=== PATIENT | female | born 1985 | race Caucasian/White ===

== ENCOUNTER → 2017-07-07 15:00 | Outpatient (CLI) | payer OTHER, SELFPAY ==
[2017-07-07 16:19] LABS: Hemoglobin A1c 5.8 % (4.2-6.3)
[2017-07-07 17:30] LABS: Follicle Stimulating Hormone 7.2 mIU/mL; Luteinizing Hormone 17.4 mIU/mL
[2017-07-10 13:42] LABS: HPV Reflexed? NOT INDICATED
== END ==
PROVIDERS: Visit Provider Obstetrics & Gynecology
DX: Z12.4 Encounter for screening for malignant neoplasm of cervix (principal); N92.5 Other specified irregular menstruation; R63.5 Abnormal weight gain
CPT/HCPCS: 36415; 83001; 83002; 83036; 84443; 88175; G0145

== ENCOUNTER → 2017-08-06 08:20 | Outpatient (CLI) | payer OTHER, SELFPAY ==
[2017-08-06 09:52] LABS: Absolute Lymphocyte Count 2.28 X10^3/ul (0.83-4.51); Absolute Neutrophil Count 3.5 X10^3/uL (2.0-7.7); Basophil# 0.03 X10^3/uL; Basophil% 0.5 % (0-1); Eosinophil# 0.07 X10^3/uL; Eosinophils% 1.1 % (0-5); Hematocrit 42.9 % (37-47); Hemoglobin 14.1 g/dl (12.0-15.0); Lymphocyte # 2.28 X10^3/ul (4.0); Lymphocyte % 35.6 % (19-41); Mean Corp Hgb Conc 32.9 g/gl (32-36); Mean Corpuscular Hgb 30.7 pg (27.0-32.0); Mean Corpuscular Volume 93.3 fL (81-99); Mean Platelet Vol. 11.5 fl (6.2-12.0); Monocyte# 0.48 X10^3/uL; Monocyte% 7.5 % (0-10); Neutrophil # 3.54 X10^3/uL (2.7-7.7); Neutrophil % 55.3 % (47-70); Platelet Count 257 K/mm3 (150-450); RBC Distribution Width CV 12.6 % (11.6-14.6); RBC Distribution Width SD 42.7 fl (35.1-43.9); White Blood Count 6.4 K/mm3 (4.4-11.0)
[2017-08-06 09:53] LABS: POSITIVE COUNT NO; POSITIVE DIFFERENTIAL NO; POSITIVE MORPHOLOGY NO
[2017-08-06 10:09] LABS: Anion Gap 8 (5-15); BUN 11 mg/dL (7-18); BUN/Creat Ratio 14.3 RATIO (10-20); Calcium,Total 8.7 mg/dL (8.5-10.1); Chloride 105 mmol/L (98-107); Cholesterol 171 mg/dL (200); Creatinine, Serum 0.77 mg/dL (0.55-1.02); EST Glomerular Filtration Rate 93 mL/min (>60); Est Glom Filt Rate - Afr Amer 112 mL/min (>60); Glucose 99 mg/dL (74-106); High Density Lipoprotein 47 mg/dL; Potassium 4.4 mmol/L (3.5-5.1); Sodium Level 138 mmol/L (136-145); Triglycerides 97 mg/dL; Uric Acid 5.4 mg/dL (2.6-6.0); Very Low Density Lipoprotein 19 mg/dL (5-40)
[2017-08-06 10:23] LABS: Hemoglobin A1c 6.1 % (4.2-6.3)
[2017-08-06 10:35] LABS: Insulin 14.1 mU/L (2.6-37.6); Vitamin D,25 Hydroxy 11.6 ng/mL (29.95-100.01)
== END ==
PROVIDERS: Family Provider Family Medicine; PCP Family Medicine; Visit Provider Nurse Practitioner Adult Health
DX: D64.9 Anemia, unspecified (principal); R63.8 Other symptoms and signs concerning food and fluid intake; E55.9 Vitamin D deficiency, unspecified; Z13.1 Encounter for screening for diabetes mellitus; Z13.220 Encounter for screening for lipoid disorders
CPT/HCPCS: 36415; 80048; 80061; 82306; 83036; 83525; 84550; 85025

== ENCOUNTER → 2017-12-30 16:43 | Outpatient (CLI) | payer OTHER, SELFPAY ==
[2017-12-30 20:34] LABS: Chlamydia Trachomatis by PCR Negative (Negative); Neisserai gonorrhoeae by PCR Negative (Negative); Probe Check PASS; Sample Adequacy Control PASS; Specimen Processing Control PASS
== END ==
PROVIDERS: Visit Provider Obstetrics & Gynecology
DX: Z11.3 Encounter for screening for infections with a predominantly sexual mode of transmission (principal)
CPT/HCPCS: 87491; 87591

== ENCOUNTER → 2018-01-14 10:10 | Outpatient (CLI) | payer OTHER, SELFPAY ==
[2018-01-14 10:37] LABS: Absolute Lymphocyte Count 2.16 X10^3/ul (0.83-4.51); Absolute Neutrophil Count 4.7 X10^3/uL (2.0-7.7); Basophil# 0.02 X10^3/uL; Basophil% 0.3 % (0-1); Eosinophil# 0.06 X10^3/uL; Eosinophils% 0.8 % (0-5); Hematocrit 39.1 % (37-47); Hemoglobin 13.4 g/dl (12.0-15.0); Lymphocyte # 2.16 X10^3/ul (4.0); Lymphocyte % 29.1 % (19-41); Mean Corp Hgb Conc 34.3 g/gl (32-36); Mean Corpuscular Hgb 31.6 pg (27.0-32.0); Mean Corpuscular Volume 92.2 fL (81-99); Mean Platelet Vol. 11.1 fl (6.2-12.0); Monocyte# 0.51 X10^3/uL; Monocyte% 6.9 % (0-10); Neutrophil # 4.66 X10^3/uL (2.7-7.7); Neutrophil % 62.8 % (47-70); Platelet Count 292 K/mm3 (150-450); RBC Distribution Width CV 12.5 % (11.6-14.6); RBC Distribution Width SD 41.8 fl (35.1-43.9); Red Blood Count 4.24 M/mm3 (4.2-5.4); White Blood Count 7.4 K/mm3 (4.4-11.0)
[2018-01-14 10:38] LABS: Color, Urine Yellow (Yellow); Glucose, Dipstick Normal (Normal); Ketone-Dipstick Negative (Negative); Leukocyte Esterase-Dipstick Negative /ul (Negative); Nitrite-Dipstick Negative (Negative); Occult Blood-Urine Negative /ul (Negative); POSITIVE COUNT NO; POSITIVE DIFFERENTIAL NO; POSITIVE MORPHOLOGY NO; Protein-Dipstick Negative (Negative); Urine Bilirubin Dipstick Negative (Negative); Urine Clarity Sl. Cloudy (Clear); Urine Urobilinogen Normal (Normal)
[2018-01-14 11:51] LABS: HIV - WCH Non-Reactive (Nonreactive)
[2018-01-15 13:46] LABS: HEPATITIS B SURFACE AG Negative (Negative); Hep C Antibodies 0.1 s/co ratio (0.0-0.9)
[2018-01-16 02:59] LABS: Prenatal RPR NONREACTIVE (NONREACTIVE)
== END ==
PROVIDERS: Visit Provider Obstetrics & Gynecology
DX: Z34.81 Encounter for supervision of other normal pregnancy, first trimester (principal)
CPT/HCPCS: 36415; 81002; 84443; 85025; 86703; 86762; 86803; 87340

== ENCOUNTER 2018-01-15 11:48 | Emergency (ER) | payer OTHER, SELFPAY ==
[2018-01-15 11:49] VITALS: BP 135/80; PULSE 85; RESP 18; TEMP 36.6; O2SAT 98; BMI 33.2
--- NOTE | 2018-01-15 12:10 | ED.VISSUMM ---
- ER Visit Summary Date of Service: 01/15/18 Chief Complaint: [] Sharp intermittent right lower quadrant pain 4 AM today G1P 0 8 weeks History of Present Illness: The patient is a 32 F [] patient with that history as above, was seen yesterday by her [employer]STAL [employer]PER team for complete evaluation of her lab work urinalysis and ultrasound were done that were unremarkable she had an 8-week single live IUP, she indicates today at 4 AM she basically was awoken with a sharp stabbing pain to the right lower quadrant, the pain waxes and wanes there are periods where she is completely pain-free than the pain spontaneously recurs and lasts for only a few minutes then resolves. She has been able to eat fact she is hungry now, her bowel urinary habits are normal, no vaginal bleeding, no fever or cough, She denies any past history and is on no meds except those related to her , she spoke with her CRYSTAL LAPPER's office was asked to come to the ed department, she is currently pain-free Does recall that she was told that she had a cyst on her ovary during ultrasound done yesterday was not sure which side Physical Examination: [] Points directly to the right lower quadrant area when the pain strikes her, again she is pain-free now her vital signs are within normal range afebrile, HEENT exam, neck chest heart and lungs are unremarkable, her abdomen is soft nontender no rebound guarding or megaly the back is unremarkable the skin her flanks are normal her upper lower extremities are normal neurologic she is awake moving all 4 she denies any vaginal bleeding or discharge Test Results: [] Emergency Department Course and Treatment: [] The differential would certainly include appendicitis kidney stone UTI related complications etc. she is currently afebrile with no symptoms at this time screening labs will be obtained and will discuss the case with her cable armorer Dr. Luz Spoke with Dr. luz obtained all the above screening labs that were generally unremarkable see those reports, eluding white count and UA did review studies done yesterday in the office and agrees no additional studies such as ultrasounds or others are necessary now, we did caution the patient about the possibility of appendicitis kidney stone or other occult conditions but given the lack of white count given the unremarkable UA the fact that she is hungry and her physical exam findings, and also the fact the pain is very intermittent she agrees and understands with discharge to follow-up with the office in the next few days and return for change in symptoms. as prudent precaution she was given instructions appendicitis kidney stone etc. follow-up and return for change in symptoms Treatment Plan: [] Disposition: [] Home stable Impression: [] Treatment and right lower quadrant pain, 8 weeks single live IUP This note was generated with [employer]upp[employer] dictation software. It may contain incorrect words, spelling, and punctuation that were not noted in review of the chart prior to signing ED Disposition - Plan for ED Patient: Chief Complaint: Abd Pain Referrals: Pauline Luz MD [STAFF PHYSICIAN] -
--- NOTE | 2018-01-15 12:13 | ED.DCSUM_ITS ---
- ER Visit Summary Date of Service: 01/15/18 Chief Complaint: [] Sharp intermittent right lower quadrant pain 4 AM today G1P 0 8 weeks History of Present Illness: The patient is a 32 F [] patient with that history as above, was seen yesterday by her AGENCY SALES MANAGEMENT ASSISTANT team for complete evaluation of her lab work urinalysis and ultrasound were done that were unremarkable she had an 8-week single live IUP, she indicates today at 4 AM she basically was awoken with a sharp stabbing pain to the right lower quadrant, the pain waxes and wanes there are periods where she is completely pain-free than the pain spontaneously recurs and lasts for only a few minutes then resolves. She has been able to eat fact she is hungry now, her bowel urinary habits are normal, no vaginal bleeding, no fever or cough, She denies any past history and is on no meds except those related to her , she spoke with her AGENCY SALES MANAGEMENT ASSISTANT's office was asked to come to the ed department, she is currently pain-free Does recall that she was told that she had a cyst on her ovary during ultrasound done yesterday was not sure which side Physical Examination: [] Points directly to the right lower quadrant area when the pain strikes her, again she is pain-free now her vital signs are within normal range afebrile, HEENT exam, neck chest heart and lungs are unremarkable, her abdomen is soft nontender no rebound guarding or megaly the back is unremarkable the skin her flanks are normal her upper lower extremities are normal neurologic she is awake moving all 4 she denies any vaginal bleeding or discharge Test Results: [] Emergency Department Course and Treatment: [] The differential would certainly include appendicitis kidney stone UTI related complications etc. she is currently afebrile with no symptoms at this time screening labs will be obtained and will discuss the case with her manager management Dr. Luz Spoke with Dr. luz obtained all the above screening labs that were generally unremarkable see those reports, eluding white count and UA did review studies done yesterday in the office and agrees no additional studies such as ultrasounds or others are necessary now, we did caution the patient about the possibility of appendicitis kidney stone or other occult conditions but given the lack of white count given the unremarkable UA the fact that she is hungry and her physical exam findings, and also the fact the pain is very intermittent she agrees and understands with discharge to follow-up with the office in the next few days and return for change in symptoms. as prudent precaution she was given instructions appendicitis kidney stone etc. follow-up and return for change in symptoms Treatment Plan: [] Disposition: [] Home stable Impression: [] Treatment and right lower quadrant pain, 8 weeks single live IUP This note was generated with [employer] dictation software. It may contain incorrect words, spelling, and punctuation that were not noted in review of the chart prior to signing ED Disposition - Plan for ED Patient: Chief Complaint: Abd Pain Referrals: Pauline Luz MD [STAFF PHYSICIAN] -
[2018-01-15] MEDS: 0.9% Normal Saline 1,000 ML 1000 ML IV (12:27)
[2018-01-15 12:36] LABS: Mucous, Urine 0 SEEN /hpf (<or=2+); Red Blood Cells-Urine 0 SEEN /hpf (0-5); White Blood Cells 0 SEEN /hpf (0-5)
[2018-01-15 12:45] LABS: Absolute Lymphocyte Count 2.42 X10^3/ul (0.83-4.51); Absolute Neutrophil Count 5.5 X10^3/uL (2.0-7.7); Basophil# 0.02 X10^3/uL; Basophil% 0.2 % (0-1); Eosinophil# 0.04 X10^3/uL; Eosinophils% 0.5 % (0-5); Hematocrit 39.3 % (37-47); Hemoglobin 13.6 g/dl (12.0-15.0); Lymphocyte # 2.42 X10^3/ul (4.0); Lymphocyte % 28.1 % (19-41); Mean Corp Hgb Conc 34.6 g/gl (32-36); Mean Corpuscular Hgb 31.8 pg (27.0-32.0); Mean Corpuscular Volume 91.8 fL (81-99); Mean Platelet Vol. 11.3 fl (6.2-12.0); Monocyte# 0.58 X10^3/uL; Monocyte% 6.7 % (0-10); Neutrophil # 5.54 X10^3/uL (2.7-7.7); Neutrophil % 64.4 % (47-70); Platelet Count 296 K/mm3 (150-450); RBC Distribution Width CV 12.4 % (11.6-14.6); RBC Distribution Width SD 41.3 fl (35.1-43.9); Red Blood Count 4.28 M/mm3 (4.2-5.4); White Blood Count 8.6 K/mm3 (4.4-11.0)
[2018-01-15 12:47] LABS: Color, Urine Yellow (Yellow); Glucose, Dipstick Normal (Normal); Ketone-Dipstick Negative (Negative); Leukocyte Esterase-Dipstick Negative /ul (Negative); Nitrite-Dipstick Negative (Negative); Occult Blood-Urine Negative /ul (Negative); Protein-Dipstick Negative (Negative); Specific Gravity, Urine 1.015 (1.002-1.030); Urine Bilirubin Dipstick Negative (Negative); Urine Clarity Clear (Clear); Urine Urobilinogen Normal (Normal)
[2018-01-15 12:51] LABS: POSITIVE COUNT NO; POSITIVE DIFFERENTIAL NO; POSITIVE MORPHOLOGY NO
[2018-01-15 12:59] LABS: AST(SGOT) 13 U/L (15-37); Alanine Aminotransfer ALT/SGPT 19 U/L (13-56); Albumin, Serum 3.8 g/dL (3.2-5.0); Alkaline Phosphatase 56 U/L (45-117); Anion Gap 5 (5-15); BUN 6 mg/dL (7-18); BUN/Creat Ratio 9.3 RATIO (10-20); Bilirubin, Direct 0.14 mg/dL (0.00-0.30); Chloride 105 mmol/L (98-107); Creatinine, Serum 0.64 mg/dL (0.55-1.02); EST Glomerular Filtration Rate 113 mL/min (>60); Est Glom Filt Rate - Afr Amer 137 mL/min (>60); Estimated Creatinine Clearance 131.88 ml/min; Globulin 3.6 g/dL (2.2-4.2); Glucose 89 mg/dL (74-106); Lipase 167 U/L (73-393); Potassium 4.3 mmol/L (3.5-5.1); Protein, Total 7.4 g/dL (6.4-8.2); Sodium Level 133 mmol/L (136-145)
[2018-01-15 13:05] LABS: Bacteria 1+ /hpf (None Seen); Squamous Epithelial Cells - UA 0-5 SEEN /hpf (5-10)
[2018-01-15 14:19] VITALS: RESP 16
--- NOTE | 2018-01-15 14:58 | ED.DEP ---
ED Disposition - Plan for ED Patient: Chief Complaint: Abd Pain Instructions: ED Abdominal Pain Appendx Poss, ED Abdominal Pain Unkn Cause Referrals: Pauline Krishnan MD [STAFF PHYSICIAN] -
--- NOTE | 2018-01-15 15:10 | ED.RN ---
REVIEWED D/C INSTRUCTIONS, FOLLOW UP CARE, AND S/S THAT WOULD WARRANT A RETURN TO THE ED WITH PT. PT VERBALIZED AN UNDERSTANDING AND DENIES FURTHER QUESTIONS FOR THIS RN. PT SKIN P/W/D, RESP EVEN AND UNLABORED, PT A&O X 3, NO DISTRESS NOTED. PT AMBULATED OUT OF ED, GAIT STEADY.
[2018-01-15 15:11] VITALS: BP 114/66; PULSE 70; RESP 18; O2SAT 100
== END 2018-01-15 15:12 | disposition home or self-care (01) ==
LOC: ED 13:25
PROVIDERS: Emergency Provider Emergency Medicine; Family Provider Family Medicine; PCP Family Medicine
DX: O26.891 Other specified pregnancy related conditions, first trimester (principal); R10.31 Right lower quadrant pain; Z3A.08 8 weeks gestation of pregnancy
CPT/HCPCS: 80048; 80076; 81001; 83690; 85025; 87086; 87088; 96360; 96361; 99283; J7030

== ENCOUNTER → 2018-06-03 08:39 | Outpatient (CLI) | payer OTHER, SELFPAY ==
[2018-06-03 10:39] LABS: Glucose Challenge Gest 1H 50g 123 mg/dL (70-140)
[2018-06-03 10:49] LABS: Hematocrit 34.1 % (37-47); Hemoglobin 11.2 g/dl (12.0-15.0); Mean Corp Hgb Conc 32.8 g/gl (32-36); Mean Corpuscular Hgb 31.5 pg (27.0-32.0); Mean Corpuscular Volume 95.8 fL (81-99); Mean Platelet Vol. 11.4 fl (6.2-12.0); Platelet Count 272 K/mm3 (150-450); RBC Distribution Width CV 13.1 % (11.6-14.6); RBC Distribution Width SD 45.6 fl (35.1-43.9); Red Blood Count 3.56 M/mm3 (4.2-5.4); White Blood Count 10.2 K/mm3 (4.4-11.0)
[2018-06-03 10:50] LABS: Scan Indicated on CBC? Y/N NO
== END ==
PROVIDERS: Visit Provider Obstetrics & Gynecology
DX: Z34.82 Encounter for supervision of other normal pregnancy, second trimester (principal)
CPT/HCPCS: 36415; 82950; 85027

== ENCOUNTER 2018-07-16 23:50 | Outpatient (CLI) | payer OTHER, SELFPAY ==
[2018-07-17 00:41] VITALS: BMI 34.7
[2018-07-17 02:09] LABS: Group B Strep DNA By PCR Negative (Negative); Internal Control PASS; Probe Check PASS; Specimen Processing Control PASS
--- NOTE | 2018-07-17 07:57 | OB.TRI.NOTE ---
History of Present Illness Date of Service: 07/16/18 Was patient seen by the physician?: No Reason For Visit: R/O LABOR Date of Service: 07/16/18 Final ISIDRA: 08/23/18 Final ISIDRA Source: US <20 weeks Gestational age: 34 Weeks and 5 Days History of Present Illness: Irregular contractions. Denies signs of SROM Allergies ADVACADO Allergy (Uncoded 01/15/18 11:51) Swelling Laboratory Studies: Laboratory Tests 07/16/18 Range/Units 21:00 Group B Strep DNA Negative (Negative) Specimen Comment Not Reportable Physical Exam General: Alert, Oriented x3, Cooperative, No apparent distress Lungs: Clear to auscultation, Normal air movement Abdomen: Soft, Non Tender, Non-Distended, Gravid, Appropriate for Gestational Age Extremities:: No edema SENIOR NET DEVELOPER ARCHITECT: Normal external genitalia Estimated gestational size: Appropriate for gestational size Presentation: Cephalic Cervix Dilation (cm): 2 Station: -3 Effacement (%): 25 NST - FHR Rate Baby A Baseline: 130s Variability:: Moderate Accelerations:: 15 x 15 Decelerations:: None NST Reactive:: Yes, Appropriate for gestational age FHR Category:: Category I Uterine Activity:: irregular Impression/Plan No change in cervical exam over observation period. Reassuring FHR tracing. No signs of SROM. Return with increasing signs of labor.
--- NOTE | 2018-07-17 08:00 | OB.TRI.HP_ITS ---
History of Present Illness Date of Service: 07/16/18 Was patient seen by the physician?: No Reason For Visit: R/O LABOR Date of Service: 07/16/18 Final ISIDRA: 08/23/18 Final ISIDRA Source: US <20 weeks Gestational age: 34 Weeks and 5 Days History of Present Illness: Irregular contractions. Denies signs of SROM Allergies ADVACADO Allergy (Uncoded 01/15/18 11:51) Swelling Laboratory Studies: Laboratory Tests 07/16/18 Range/Units 21:00 Group B Strep DNA Negative (Negative) Specimen Comment Not Reportable Physical Exam General: Alert, Oriented x3, Cooperative, No apparent distress Lungs: Clear to auscultation, Normal air movement Abdomen: Soft, Non Tender, Non-Distended, Gravid, Appropriate for Gestational Age Extremities:: No edema ASSISTANT SIGNAL MAINTAINER: Normal external genitalia Estimated gestational size: Appropriate for gestational size Presentation: Cephalic Cervix Dilation (cm): 2 Station: -3 Effacement (%): 25 NST - FHR Rate Baby A Baseline: 130s Variability:: Moderate Accelerations:: 15 x 15 Decelerations:: None NST Reactive:: Yes, Appropriate for gestational age FHR Category:: Category I Uterine Activity:: irregular Impression/Plan No change in cervical exam over observation period. Reassuring FHR tracing. No signs of SROM. Return with increasing signs of labor.
== END 2018-07-17 02:05 | disposition home or self-care (01) ==
LOC: WPOUT 07-17 00:22 → WP 07-17 00:22
PROVIDERS: Family Provider Family Medicine; PCP Family Medicine; Visit Provider Obstetrics & Gynecology
DX: Z34.93 Encounter for supervision of normal pregnancy, unspecified, third trimester (principal); Z3A.34 34 weeks gestation of pregnancy
CPT/HCPCS: 59025; 59050; 87081; 87653; 99218; G0378

== ENCOUNTER 2018-08-22 | Outpatient (CLI) | payer OTHER, SELFPAY ==
[2018-08-22 00:25] VITALS: BMI 36.3
[2018-08-22 00:53] LABS: ROM Internal Control Test YES-OK TO RESULT pt. (Internal QC); ROM Patient Test Negative (Negative)
--- NOTE | 2018-08-22 09:50 | OB.TRI.PN_ITS ---
Progress Notes Date of Service: 08/22/18 Progress Note: 33-year-old patient presents at 31 weeks with bilateral low back pain and intermittent contractions. Patient is 1 cm dilated thick and high denies any vaginal bleeding or loss of fluid admits good movement heart tones 140s moderate variability reactive no decelerations reactive NST category 1 tracing [place]: Irregular contractions Cervical exam 1 thick and high Assessment and plan 33-year-old with threatened labor, false labor no cervical change reassuring status DC home labor precautions reactive NST Laboratory Studies: Laboratory Tests 08/22/18 Range/Units 00:15 Vag Amniotic Fld Detect Negative (Negative)
== END 2018-08-22 00:59 | disposition home or self-care (01) ==
LOC: WPOUT 00:23 → WP 00:24
PROVIDERS: Family Provider Family Medicine; PCP Family Medicine; Referring Provider Obstetrics & Gynecology; Visit Provider Obstetrics & Gynecology
DX: O60.03 Preterm labor without delivery, third trimester (principal); O47.03 False labor before 37 completed weeks of gestation, third trimester; Z3A.31 31 weeks gestation of pregnancy
CPT/HCPCS: 59050; 84112; 99218; G0378

== ENCOUNTER 2018-08-26 04:55 | Inpatient (IN) | payer OTHER, SELFPAY ==
[2018-08-26 05:31] VITALS: BMI 36.4
[2018-08-26 06:16] LABS: Absolute Lymphocyte Count 1.84 X10^3/ul (0.83-4.51); Basophil# 0.02 X10^3/uL; Basophil% 0.2 % (0-1); Eosinophil# 0.07 X10^3/uL; Eosinophils% 0.7 % (0-5); Hematocrit 35.8 % (37-47); Hemoglobin 11.8 g/dl (12.0-15.0); Lymphocyte # 1.84 X10^3/ul (4.0); Lymphocyte % 19.2 % (19-41); Mean Corpuscular Volume 91.1 fL (81-99); Mean Platelet Vol. 11.9 fl (6.2-12.0); Monocyte# 0.63 X10^3/uL; Monocyte% 6.6 % (0-10); Neutrophil # 7.01 X10^3/uL (2.7-7.7); Platelet Count 213 K/mm3 (150-450); RBC Distribution Width CV 14.6 % (11.6-14.6); RBC Distribution Width SD 48.2 fl (35.1-43.9); Red Blood Count 3.93 M/mm3 (4.2-5.4); White Blood Count 9.6 K/mm3 (4.4-11.0)
[2018-08-26 06:18] LABS: POSITIVE COUNT NO; POSITIVE DIFFERENTIAL NO; POSITIVE MORPHOLOGY NO
[2018-08-26] MEDS: Lactated Ringers 1,000 ML 50 ML IV ×3 (07:00→15:57)
--- NOTE | 2018-08-26 07:48 | PCM.HPOB.BLA ---
History and Physical Date of Admission: 08/26/18 [facility] History of this : 33 yo female Ab0 with EDC 08/23/2018 by 8 weeks 3 days Ultrasound, presents to Labor and Delivery with CC of painful UCs. care remarkable for - CF testing declined h/o HSV II, H/O PCOS weighed 11 lbs at , LGA anticipated by sono done. Depression hx, no meds x 5 yrs. Currently in counselling Pertinent Past Medical History: HSV hx and on suppressive therapy for prevention of outbreak Allergies: No Known Drug Allergies Medications: During - Valtrex 1 gram tablet; promethazine 25 mg tablet; + DHA 28 mg iron-800 mcg-200 mg oral pack; Colace 100 mg capsule; azithromycin 250 mg tablet; Valtrex 1 gram tablet Review of Systems: painful UCs starting at 3:30 this am. Plans no epidural. Neg ROM. Non-contributory PHYSICAL EXAMINATION General Appearence: 33 yo female uncomfortable with UCs, resting between UCs. Vital Signs: AF, VSS Heart: RRR without rubs or gallops Lungs: CTA x 2 Breasts: deferred Abdomen: gravid Pelvis: Cervix: 4/90/-2 at presentation Last check just prior to 0700 shift change: 5 cm. IBOW. Presentation: cephalic Fetus Size: LGA Movement: present Heart: 120-130s avg variability. Accels noted UCs q 2-3 + minutes poor pickup at times due to positioning Impression /Plan: Intrauterine . 40 3/7 wk EGA. early labor. Category I tracing. Admitted for labor and delivery. Plans no epidural at this time. Continue labor. See Progress Notes for Changes Physician's Signature: Date: 08/26/18 at 0752
--- NOTE | 2018-08-26 07:53 | HP.PCM_ITS ---
History and Physical Date of Admission: 08/26/18 [facility] History of this : 33 yo female Ab0 with EDC 08/23/2018 by 8 weeks 3 days Ultrasound, presents to Labor and Delivery with CC of painful UCs. care remarkable for - CF testing declined h/o HSV II, H/O PCOS weighed 11 lbs at , LGA anticipated by sono done. Depression hx, no meds x 5 yrs. Currently in counselling Pertinent Past Medical History: HSV hx and on suppressive therapy for prevention of outbreak Allergies: No Known Drug Allergies Medications: During - Valtrex 1 gram tablet; promethazine 25 mg tablet; + DHA 28 mg iron-800 mcg-200 mg oral pack; Colace 100 mg capsule; azithromycin 250 mg tablet; Valtrex 1 gram tablet Review of Systems: painful UCs starting at 3:30 this am. Plans no epidural. Neg ROM. Non-contributory PHYSICAL EXAMINATION General Appearence: 33 yo female uncomfortable with UCs, resting between UCs. Vital Signs: AF, VSS Heart: RRR without rubs or gallops Lungs: CTA x 2 Breasts: deferred Abdomen: gravid Pelvis: Cervix: 4/90/-2 at presentation Last check just prior to 0700 shift change: 5 cm. IBOW. Presentation: cephalic Fetus Size: LGA Movement: present Heart: 120-130s avg variability. Accels noted UCs q 2-3 + minutes poor pickup at times due to positioning Impression /Plan: Intrauterine . 40 3/7 wk EGA. early labor. Category I tracing. Admitted for labor and delivery. Plans no epidural at this time. Continue labor. See Progress Notes for Changes Physician's Signature: Date: 08/26/18 at 0752
--- NOTE | 2018-08-26 13:11 | PCM.PN.BLA ---
Progress Note LABOR PROGRESS NOTE Using nitrous oxide for contraction pain. States she is hungry and tired. Declines epidural AVSS EFM 130-140s avg variability. Accels noted. Occasional late decel, occasional variable. Occasional early UCs noted up to 6 min apart CX: /-1 at last RN check A/P: 40 3/7 wk EGA Spont labor. Plans no epidural. LGA . continue labor. Offered AROM, considering but wants to think about it through a few more UCs. Advised that AROM normally will shorten duration of labor, but UCs more uncomfortable and may be closer together. Continue labor.
--- NOTE | 2018-08-26 17:50 | PCM.PN.BLA ---
Progress Note 40 3/7 wk labor. C and P Category I tracing Anticipate
[2018-08-26] MEDS: Oxytocin 10 UNITS/ML Vial IM (18:21)
--- NOTE | 2018-08-26 18:39 | OP.PCM_ITS ---
Vaginal Delivery Maternal Presentation: Active Labor 40 3/7 wk active labor Method of Induction: Amniotomy Amniotic Membrane Rupture Type: Artificial Amniotic Fluid Description: Lightly stained meconium Final ISIDRA: 08/23/18 Final ISIDRA Source: US <20 weeks Gestational age: 40 Weeks and 3 Days Date of Procedure: 08/26/18 Pre-Operative Diagnosis: 40 3/7 wk labor Post-Operative Diagnosis: same Surgery/ Procedure Performed: Spontaneous Vaginal Delivery Type of Anesthesia: None Description of Procedure: of a haji viable female over intact perineum to 3rd deg laceratoin. Head delivered SHAYAN OP and nares bulb suctioned on perineum. No nuchal cord noted. Shoulders delivered easily. Spontaneously delivered as baby rotated naturally. to maternal abdomen, with spont cry. Cord clamped immediately x two and cut 2/2 tear in umbilical cord near umbilicus with movement to higher on maternal abdomen. Ap 9/9 PP exam; Bilateral vaginal wall lacerations repaired under 20 cc of 1% lidocaine without epinephrine local to hemostatic and intact with 3-0 Vicryl. 3rd deg perineal laceration noted. Anal sphincter capsule repaired with interrupted suture of 2-0 Chromic and then repair finished with 3-0 Vicryl to he mostatic and intact. Placenta delivered by spont expulsion 3V cord, normal appearing and intact with trailing membranes. EBL 450 cc Patient and infant tolerated delivery well. To recovery, stable conditoin. Presentation: Vertex, SHAYAN Placental Delivery Description: Spontaneous, Expressed Placenta Disposition: [facility] Cord Vessel Description: 3 Vessels Cord Entanglement: None Estimated Blood Loss: 450 A gender: Female (1 minute): 9 (5 minute): 9 Episiotomy Description: None Laceration: Perineal Extension/lac, Vaginal Extension/lac, 3rd degree - bilateral vaginal sidewall lacerations, 2nd degree. Medications given after delivery: IV Pitocin - IV infiltrated then. Pt received 10 U pitocin in L thigh. Complications: None
--- NOTE | 2018-08-26 18:42 | PCM.DCVAG ---
Discharge Diet: No Restrictions Discharge Activity: May not drive while taking narcotic pain medications., May Shower, May Take a Tub Bath May resume sexual activity in: 4-6 weeks Additional Activity Instructions:: Nothing in the vagina for 4-6 weeks. You may return to work/school in 6 weeks. Additional Instructions: If you experience any of the following, contact your healthcare provider. Bleeding that soaks a pad every hour for 2 hours Fever 100.4 or higher Unrelieved abdominal pain Problems urinating (including inability to urinate or burning while urinating). Visual changes Severe headache Flu-like symptoms Pain or redness in one of both of your breasts Pain, warmth, tenderness or swelling in your legs, especially the calf area Frequent nausea and vomiting Symptoms of depression or anxiety If you experience any of the following, call 911 or go to the nearest Emergency Room. Chest pain Problems breathing Seizure activity Partial or complete paralysis of a body part, slurred speech, weakness or drooping of the face, or a sudden inability to walk or hold your balance Allergies/Adverse Reactions: Allergies ADVACADO Allergy (Uncoded 08/22/18 00:33) Swelling Medications to take at Discharge Vits96/Iron Fum/Folic [ Tablet] 1 each PO DAILY 01/15/18 Valacyclovir HCl [Valtrex] 1,000 mg PO DAILY 07/17/18 Please Follow Up With: Pauline Krishnan MD - [phone] When: Call to make an appointment with your doctor in 6 weeks. Primary Care Physician: Rajiv Chacko MD [Primary Care Provider] - Test Results: Test results from this visit will be discussed in further detail at your follow-up appointment, if applicable. Proposed Discharge Date: 08/28/18
--- NOTE | 2018-08-26 18:44 | DCINST_ITS ---
Discharge Diet: No Restrictions Discharge Activity: May not drive while taking narcotic pain medications., May Shower, May Take a Tub Bath May resume sexual activity in: 4-6 weeks Additional Activity Instructions:: Nothing in the vagina for 4-6 weeks. You may return to work/school in 6 weeks. Additional Instructions: If you experience any of the following, contact your healthcare provider. * Bleeding that soaks a pad every hour for 2 hours * Fever 100.4 or higher * Unrelieved abdominal pain * Problems urinating (including inability to urinate or burning while urinating). * Visual changes * Severe headache * Flu-like symptoms * Pain or redness in one of both of your breasts * Pain, warmth, tenderness or swelling in your legs, especially the calf area * Frequent nausea and vomiting * Symptoms of depression or anxiety If you experience any of the following, call 911 or go to the nearest Emergency Room. * Chest pain * Problems breathing * Seizure activity * Partial or complete paralysis of a body part, slurred speech, weakness or drooping of the face, or a sudden inability to walk or hold your balance Allergies/Adverse Reactions: Allergies ADVACADO Allergy (Uncoded 08/22/18 00:33) Swelling Medications to take at Discharge Vits96/Iron Fum/Folic [ Tablet] 1 each PO DAILY 01/15/18 Valacyclovir HCl [Valtrex] 1,000 mg PO DAILY 07/17/18 Please Follow Up With: Pauline Krishnan MD - [phone] When: Call to make an appointment with your doctor in 6 weeks. Primary Care Physician: Rajiv Chacko MD [Primary Care Provider] - Test Results: Test results from this visit will be discussed in further detail at your follow- up appointment, if applicable. Proposed Discharge Date: 08/28/18
[2018-08-26] MEDS: Naproxen 250 MG Tablet 500 MG PO (20:09)
[2018-08-26 20:22] VITALS: BP 127/64; PULSE 103; RESP 18; TEMP 36.6; O2SAT 98
[2018-08-26] MEDS: Acetaminophen 500 MG Tablet 1000 MG PO (21:41)
[2018-08-26 23:03] VITALS: BP 125/69; PULSE 96; RESP 96; TEMP 37.2; O2SAT 16
[2018-08-26] MEDS: Oxymetazoline 0.05% 1 SPRAY SPRAY.BTL 2 SPRAY NASAL (23:07)
[2018-08-27] MEDS: oxyCODONE 5 MG Tablet PO ×2 (04:27→08:24)
[2018-08-27 04:29] VITALS: BP 108/65; PULSE 88; RESP 16; TEMP 36.4; O2SAT 98
[2018-08-27 07:05] LABS: Hematocrit 27.1 % (37-47); Hemoglobin 9.2 g/dl (12.0-15.0); Mean Corp Hgb Conc 33.9 g/gl (32-36); Mean Corpuscular Hgb 30.9 pg (27.0-32.0); Mean Corpuscular Volume 90.9 fL (81-99); Mean Platelet Vol. 11.1 fl (6.2-12.0); Platelet Count 189 K/mm3 (150-450); RBC Distribution Width CV 14.7 % (11.6-14.6); RBC Distribution Width SD 48.5 fl (35.1-43.9); Red Blood Count 2.98 M/mm3 (4.2-5.4); White Blood Count 13.8 K/mm3 (4.4-11.0)
[2018-08-27 07:06] LABS: Scan Indicated on CBC? Y/N NO
[2018-08-27] MEDS: Dibucaine 30 GM Tube 1 APPLIC TOPICAL (07:59)
--- NOTE | 2018-08-27 08:21 | PCM.PN.OB ---
Subjective: PPD#1 9# baby girl Breast feeding. Taking some OxyIR for perineal pain (3rd degree laceration) No concerns voiced otherwise. Abdomen feels different over uterus, not painful, unable to explain further. - Physical Exam General: Alert, Oriented x3, Cooperative, No apparent distress HEENT: Atraumatic Neck: Supple Extremities: Edema Neurological: Cranial nerves II-XII grossly intact Psych/Mental Status: Normal Affect Vital Signs Temp Pulse Resp BP Pulse Ox 97.5 F L 88 16 108/65 98 08/27/18 04:29 08/27/18 04:29 08/27/18 04:29 08/27/18 04:29 08/27/18 04:29 Oxygen Delivery Method Room Air Weight: 112.037 kg Body Mass Index (BMI) 36.4 Intake and Output for Last 24 Hours 08/25/18 08/26/18 08/27/18 23:59 23:59 23:59 Intake Total 2178 / 2178 Output Total 1999 / 1999 Balance 178 / 178 Laboratory Tests Past 24 Hrs 08/27/18 06:55 WBC 13.8 H RBC 2.98 L Hgb 9.2 L Hct 27.1 L MCV 90.9 MCH 30.9 MCHC 33.9 RDW 14.7 H RDW Differential 48.5 H Plt Count 189 MPV 11.1 Medical Necessity - Tobacco Use Smoking Status: Never smoker Assessment/Plan PPD#1 LGA 9# baby Stable . Continue care. Recommend trial of abdominal binder prn for abdominal sx.
[2018-08-27] MEDS: Senna/Docusate Sodium 1 Tablet PO (08:23)
[2018-08-27 08:25] VITALS: BP 107/61; PULSE 94; RESP 16; TEMP 36.6; O2SAT 98
[2018-08-27] MEDS: Acyclovir 200 MG Capsule 400 MG PO (10:13)
[2018-08-27] MEDS: Prenatal Vits Tablet 1 TABLET PO (12:17)
[2018-08-27 12:20] VITALS: BP 102/66; PULSE 96; TEMP 36.6; O2SAT 98
[2018-08-27] MEDS: Naproxen 250 MG Tablet 500 MG PO (14:12)
[2018-08-27 15:50] VITALS: BP 117/65; PULSE 95; RESP 16; TEMP 36.7
--- NOTE | 2018-08-27 19:20 | NURSING ---
1600 Baby transferred to [facility] and Mom to finish her pumping and colostrum was swabbed to send to [facility]. Mom encouraged to be pumping every 2-3 hrs with prior breast massage and expression as able. Mom states that once discharged from [facility] Mom would like to schedule a consult to help with baby to breast as able. Sam GAONACLC
--- NOTE | 2018-08-28 08:13 | PCM.DC.SUM ---
Discharge Date and Diagnosis Date of Admission: 08/26/18 Date of Discharge: 08/27/18 - Primary Discharge Diagnosis S/P Hospital Course and Treatment Operations: None Procedures: - - repair of third degree laceration Summary of Care Provided: The patient is a 33 year old F [admitted in labor. Delivered a live over a third degree laceration. This was repaired by Dr. Krishnan. Baby was transfered to [facility] on PP day#1. She was then discharged home to be with baby. ] - Physical Exam Vital Signs Temp Pulse Resp BP Pulse Ox 98.1 F 95 16 117/65 98 08/27/18 15:50 08/27/18 15:50 08/27/18 15:50 08/27/18 15:50 08/27/18 12:20 Oxygen Delivery Method Room Air Weight: 247 lb Body Mass Index (BMI) 36.4 Intake and Output for Last 24 Hours 08/26/18 08/27/18 08/28/18 23:59 23:59 23:59 Intake Total 2178 / 2178 Output Total 1999 Balance 178 / 178 Discharge Diet: No Restrictions Discharge Activity: May not drive while taking narcotic pain medications., May Shower, May Take a Tub Bath May resume sexual activity in: 4-6 weeks Additional Activity Instructions:: Nothing in the vagina for 4-6 weeks. You may return to work/school in 6 weeks. Home Medications: Medications to take at Discharge Vits96/Iron Fum/Folic [ Tablet] 1 each PO DAILY 01/15/18 Valacyclovir HCl [Valtrex] 1,000 mg PO DAILY 07/17/18 Primary Care Physician: Rajiv Chacko MD [Primary Care Provider] - Please follow up with your Primary Care Physician in: 6 weeks Please Follow Up With: Pauline Krishnan MD When: 6 weeks Disposition: Home Minutes spent on discharge:: 15 Patient Condition:: Good Medical Necessity - Tobacco Use Smoking Status: Never smoker Meaningful Use Info Meaningful Use Diagnoses (Choose all that apply): None applicable
--- NOTE | 2018-08-28 16:39 | CASEMGMT ---
Social Work Labor and Delivery Unit Consult placed for this patient on 08-27-2018. Patient discharged in the evening of 08.27.2018 due to baby being transferred to [facility]. Unable to complete social work assessment due to discharge before social work able to see patient. Social work at [place] does standardly follow families admitted to the NICU, so social work support will be available to this family as needed while at [facility]. -GAYLE West, METAL WINDOW FRAME MAKER
== END 2018-08-27 18:40 | disposition home or self-care (01) | DRG 768 ==
PROVIDERS: Obstetrics & Gynecology; Admitting Provider Obstetrics & Gynecology; Family Provider Family Medicine; PCP Family Medicine; Referring Provider Obstetrics & Gynecology; Visit Provider Obstetrics & Gynecology
DX: O36.63X0 Maternal care for excessive fetal growth, third trimester, not applicable or unspecified (principal); O70.20 Third degree perineal laceration during delivery, unspecified; O77.0 Labor and delivery complicated by meconium in amniotic fluid; O76 Abnormality in fetal heart rate and rhythm complicating labor and delivery; Z3A.40 40 weeks gestation of pregnancy; Z37.0 Single live birth
CPT/HCPCS: 59050; 85025; 85027; 86850; 86900; 99218; J7120; G0378

== ENCOUNTER → 2020-03-20 11:28 | Outpatient (CLI) | payer OTHER, SELFPAY ==
[2020-03-20 10:30] VITALS: BMI 34.9
[2020-03-20 11:45] LABS: Absolute Neutrophil Count 6.1 X10^3/uL (2.0-7.7); Basophil# 0.04 X10^3/uL; Basophil% 0.4 % (0-1); Eosinophil# 0.04 X10^3/uL; Eosinophils% 0.4 % (0-5); Hematocrit 38.7 % (37-47); Hemoglobin 12.9 g/dL (12.0-15.0); Lymphocyte % 25.9 % (19-41); Mean Corp Hgb Conc 33.3 g/dL (32-36); Mean Corpuscular Hgb 30.9 pg (27.0-32.0); Mean Corpuscular Volume 92.8 fL (81-99); Mean Platelet Vol. 10.1 fl (6.2-12.0); Monocyte% 4.5 % (0-10); NRBC Flagged by Analyzer 0 % (0-5); Neutrophil # 6.08 X10^3/uL (2.7-7.7); Neutrophil % 68.5 % (47-70); Platelet Count 321 K/mm3 (150-450); RBC Distribution Width CV 12.2 % (11.6-14.6); RBC Distribution Width SD 41.6 fl (35.1-43.9); Red Blood Count 4.17 M/mm3 (4.2-5.4); White Blood Count 8.9 K/mm3 (4.4-11.0)
[2020-03-20 11:54] LABS: Glucose Challenge Gest 1H 50g 146 mg/dL (70-140)
[2020-03-20 13:23] LABS: HIV - WCH Non-Reactive (Nonreactive); Hepatitis B Surface Antigen Non-Reactive (Nonreactive); Hepatitis C Antibody Non-Reactive (Nonreactive); Rubella IgG Reactive (Nonreactive)
[2020-03-20 14:40] LABS: Amphetamine Urine VISTA NEGATIVE (<1000 ng/mL); Barbiturate Urine VISTA NEGATIVE (< 200 ng/mL); Benzodiazepine Urine VISTA NEGATIVE (< 200 ng/mL); Cocaine Urine VISTA NEGATIVE (< 300 ng/mL); Ecstacy Urine VISTA NEGATIVE (< 500 ng/mL); Methadone Urine VISTA NEGATIVE (< 300 ng/mL); PCP Urine VISTA NEGATIVE (< 25 ng/mL); THC Urine VISTA NEGATIVE (< 50 ng/mL); Vista UDS pH Range 6
[2020-03-23 02:34] LABS: Rapid Plasmin Reagin (RPR) NONREACTIVE (NONREACTIVE)
[2020-03-23 03:06] LABS: Chlamydia By Nucleic Acid AMP Negative (Negative)
[2020-03-23 11:37] LABS: Gonococcus By Nucleic Acid AMP Negative (Negative)
== END ==
PROVIDERS: PCP Family Medicine; Referring Provider Obstetrics & Gynecology; Visit Provider Obstetrics & Gynecology
DX: O09.90 Supervision of high risk pregnancy, unspecified, unspecified trimester (principal); O99.210 Obesity complicating pregnancy, unspecified trimester
CPT/HCPCS: 36415; 80307; 82950; 85025; 86592; 86703; 86762; 86803; 86850; 86900; 86901; 87086; 87088; 87340; 87491; 87591

== ENCOUNTER → 2020-03-28 09:55 | Outpatient (CLI) | payer OTHER, SELFPAY ==
[2020-03-20 10:30] VITALS: BMI 34.9
[2020-03-28 11:10] LABS: Glucose GTT-Gestation. Fasting 87 mg/dL (<105)
[2020-03-28 11:51] LABS: Glucose GTT-Gestational 1 Hr 138 mg/dL (<190)
[2020-03-28 12:54] LABS: Glucose GTT-Gestational 2 Hr 126 mg/dL (<165)
[2020-03-28 13:58] LABS: Glucose GTT-Gestational 3 Hr 79 L (<145)
== END ==
PROVIDERS: PCP Family Medicine; Referring Provider Nurse Practitioner Women's Health; Visit Provider Nurse Practitioner Women's Health
DX: Z13.1 Encounter for screening for diabetes mellitus (principal)
CPT/HCPCS: 36415; 82951; 82952

== ENCOUNTER → 2020-09-05 08:28 | Outpatient (CLI) | payer SELFPAY ==
[2020-08-02 08:55] VITALS: BMI 35.3
[2020-08-22 09:00] VITALS: BMI 35.3
--- NOTE | 2020-09-05 08:34 | US_ITS ---
STUDY: SECOND AND THIRD TRIMESTER OBSTETRICAL ULTRASOUND - LIMITED REASON FOR EXAM: Female, 35 years old GDMA 32 weeks LMP: 01/21/2020. PRIOR ULTRASOUND: None. TECHNIQUE: Transabdominal TECHNICAL QUALITY: Adequate. FINDINGS: There is a single intrauterine fetus. The fetus is in a cephalic presentation. There is demonstrated cardiac activity with a heart rate of 149 bpm. There is a normal amniotic fluid volume. The largest amniotic fluid pocket measures 3.6 cm x 3.3 cm. The amniotic fluid index (ANDRZEJ) is 13 cm. The placenta is posterior in location and is not low lying. There are Grade 0 placental changes. The cervix measures 3.5 cm in length. BIOMETRY: BPD: 8.54 cm: 34 weeks, 3 days HC: 31.36 cm: 35 weeks, 0 days AC: 30.86 cm: 34 weeks, 5 days FL: 6.4 cm: 33 weeks, 0 days Age by LMP: 32 weeks, 4 days. ISIDRA by LMP: 10/27/2020. age by prior US: 32 weeks, 4 days. ISIDRA by prior US: 10/27/2020. age by current US: 34 weeks, 1 days. ISIDRA by current US: 10/16/2020. Estimated weight: 2412 grams, +/- 362 grams, 89 percentile. US/OB Limited With Biometrics IMPRESSION: Single live intrauterine gestation with a mean gestational age of 32 weeks and 4 days. The measurements obtained today fall within the normal expected range. Electronically Signed: Cooper Paul MD at 12:07 EDT , Service support ,
== END ==
PROVIDERS: PCP Family Medicine; Referring Provider Obstetrics & Gynecology; Visit Provider Obstetrics & Gynecology
DX: O24.419 Gestational diabetes mellitus in pregnancy, unspecified control (principal); Z3A.32 32 weeks gestation of pregnancy
CPT/HCPCS: 76816

== ENCOUNTER → 2020-10-03 08:00 | Outpatient (CLI) | payer SELFPAY ==
[2020-08-02 08:55] VITALS: BMI 35.3
[2020-09-18 14:15] VITALS: BMI 35.3
--- NOTE | 2020-10-03 08:06 | US_ITS ---
STUDY: SECOND AND THIRD TRIMESTER OBSTETRICAL ULTRASOUND - LIMITED REASON FOR EXAM: Female, 35 years old. Diabetes. growth. LMP: 01/21/20 PRIOR ULTRASOUND: 09/05/20 TECHNIQUE: Transabdominal ultrasound evaluation was performed. FINDINGS: There is a single intrauterine fetus. The fetus is in a cephalic presentation. There is demonstrated cardiac activity with a heart rate of 144 bpm. There is a normal amniotic fluid volume. The largest amniotic fluid pocket measures 4.1 cm. The amniotic fluid index (ANDRZEJ) is 13.4 cm. The placenta is posterior in location and is not low lying. There are Grade 1 placental changes. The cervix is closed and measures 3.7 cm in length. BIOMETRY: BPD: 9.28 cm: 37 weeks, 5 days HC: 33.96 cm: 39 weeks, 0 days AC: 33.24 cm: 37 weeks, 1 days FL: 7.26 cm: 37 weeks, 1 days Age by LMP: 36 weeks, 4 days. ISIDRA by LMP: 10/27/20. age by prior US: 30 weeks, 1 days. ISIDRA by prior US: 7521. age by current US: 38 weeks, 0 days. ISIDRA by current US: 10/17/20. Estimated weight: 3200 grams, +/- 480 grams, 75 percentile. US/OB Limited With Biometrics IMPRESSION: Single live intrauterine gestation at approximately 38 weeks and 1 day based on the current ultrasound. Electronically Signed: Moses Stevens MD at 8:12 EDT Tel , Service support ,
== END ==
PROVIDERS: PCP Family Medicine; Referring Provider Obstetrics & Gynecology; Visit Provider Obstetrics & Gynecology
DX: Z34.93 Encounter for supervision of normal pregnancy, unspecified, third trimester (principal); Z3A.34 34 weeks gestation of pregnancy
CPT/HCPCS: 76816; 87081

== ENCOUNTER 2020-10-24 07:05 | Inpatient (IN) | payer SELFPAY ==
[2020-05-18 09:00] VITALS: BMI 35.6
[2020-10-23 10:48] VITALS: BMI 34.0
[2020-10-24] VITALS (39 sets, daily range): BP systolic 90–125; BP diastolic 52–82; PULSE 58–112; RESP 16–18; TEMP 36.2–37.1; O2SAT 86–100; BMI 33.0
[2020-10-24] MEDS: Lactated Ringers 1,000 ML 50 ML IV (07:46)
[2020-10-24] MEDS: Oxytocin 30 units/NS 500 ml 30 UNITS/500 ML IV.SOLN IV (07:56)
[2020-10-24 08:01] LABS: Absolute Lymphocyte Count 1.82 X10^3/uL (0.83-4.51); Basophil# 0.03 X10^3/uL; Basophil% 0.4 % (0-1); Eosinophil# 0.06 X10^3/uL; Eosinophils% 0.7 % (0-5); Hematocrit 38.3 % (37-47); Hemoglobin 12.6 g/dL (12.0-15.0); Lymphocyte # 1.82 X10^3/ul (0.83-4.51); Lymphocyte % 21.7 % (19-41); Mean Corp Hgb Conc 32.9 g/dL (32-36); Mean Corpuscular Hgb 30.5 pg (27.0-32.0); Mean Corpuscular Volume 92.7 fL (81-99); Mean Platelet Vol. 11.7 fl (6.2-12.0); Monocyte# 0.41 X10^3/uL; Monocyte% 4.9 % (0-10); NRBC Flagged by Analyzer 0 % (0-5); Neutrophil # 6.01 X10^3/uL (2.7-7.7); Neutrophil % 71.8 % (47-70); Platelet Count 236 K/mm3 (150-450); RBC Distribution Width CV 13.8 % (11.6-14.6); RBC Distribution Width SD 46.8 fl (35.1-43.9); Red Blood Count 4.13 M/mm3 (4.2-5.4); White Blood Count 8.4 K/mm3 (4.4-11.0)
[2020-10-24 08:10] LABS: Bedside Glucose 92 mg/dL (70-110)
[2020-10-24] MEDS: Lactated Ringers 500 ML 999 ML IV (09:24)
[2020-10-24 09:36] LABS: Bedside Glucose 84 mg/dL (70-110)
[2020-10-24] MEDS: fentaNYL-bupivacaine (epidural) 100 ML BAG EPIDURAL (10:32)
[2020-10-24] MEDS: Oxytocin 30 units/NS 500 ml 30 UNITS/500 ML IV.SOLN 334 UNITS IV (11:08)
--- NOTE | 2020-10-24 11:21 | HP.PCM_ITS ---
History and Physical Date of Admission: 10/24/20 Intake Visit Reasons: 39 WK OB Chief Complaint: est ob Doctorate Of Chiropractic Required: No Is patient in pain?: No Allergies ADVACADO Allergy (Uncoded 10/18/20 10:14) Swelling Medications [id number] fum-folic 1 ea PO DAILY 01/15/18 [History Confirmed 10/23/20] ondansetron 4 mg disintegrating tablet 4 mg PO Q8H PRN #30 tab 04/18/20 [Rx Confirmed 10/23/20] ferrous sulfate 325 mg (65 mg iron) tablet 325 mg PO DAILY 07/31/20 [History Confirmed 10/23/20] valacyclovir 500 mg tablet 500 mg PO BID #33 tab 09/15/20 [Rx Confirmed 10/23/20] Last Menstral Period: 01/21/20 Zika: Zika virus screening: Negative : No PFSH PFSH Medical History Genital herpes affecting PCOS (polycystic ovarian syndrome) Surgical History History of tonsillectomy Family History Aunt Breast cancer Social History adopted: No household members: family housing: house number of children: 1 current occupational status: employed 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 Date Name GA/Weeks Outcome Route Bth Weight Gen Labor Lgth Anesthesia Del Locatn Provider FOB 08/26/18 Calvin 40 live - full term 9lbs Female 16 hours epidural [facility] Farzad Delivery Date: 08/26/18 3rd degree laceration; NICU for possible NEC- she did not have Pauline Tay HPI 39 WK OB Details: BRITTANY ROCA is a 35 year old who presents for routine OB visit. OB Visit ISIDRA Calculator Estimated Delivery Date Method Current WG Current Estimate 10/27/20 LMP (Certain) 39w 3d Other Estimates 10/25/20 Ultrasound #1 39w 5d Expected Delivery Route/Plan by 39 Labor Preferences- labor support person: Farzad and sister (Kathi) or mom (Isis) labor intervention preferences: minimal intervention, nitrous worked well last time pain management options preferred: minimal if able but open to epidural cut cord/dad catch: yes, consider catch : yes PP control planned: discussed possible routes of delivery and associated risks: discussed possible delivery modalities and possible indications for each including R/B/A of , VAVD, FAVD, and CS. questions answered. special requests: [] Specific Issue/Plans flu vaccine: declined tdap vaccine: declined rhogam: na LARC form signed: declined movement and labor precautions reviewed. Problem list reviewed and updated with the most current plan of care details and appropriate orders placed. Relevant counseling for the gestational age provided. Continue routine care and follow up unless otherwise noted in visit notes/problem list details Initial Weight: Not Recorded Date EGA Weight BP Urine Prot Glucose FHR FuHt Pres Dilation Effaced St Visit Note 03/20/20 8w 3d 237 lb 110/72 168 GP - CRL 18.8mm consistent with LMP. 04/18/20 12w 4d 237 lb 112/70 Negative Negative 145 GP - no cramping or bleeding. Still having nausea - zofran prescribed. Anatomy ordered. 05/18/20 16w 6d 241 lb 106/70 Negative Negative 145 SM- no vb cramping 06/16/20 21w 0d 243 lb 120/70 Negative Negative 145 SM- no vb lof good fm no ctx 07/12/20 24w 5d 248 lb 2 oz 120/60 Negative Negative 140 25 GP - no cramping, LOF, VB, DFM. Discussed 3h GCT. May want to do home BGT monitoring to decrease cost given self pay. 08/02/20 27w 5d 246 lb 104/66 Negative Negative 155 27 GP - no ctx, LOF, VB, DFM. Discussed gestational diabetes and timing of delivery. GP - no ctx, LOF, VB, DFM. Discussed gestational diabetes and timing of delivery. Considering Manny for name. 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 08/22/20 30w 4d 243 lb 122/60 150 30 Cephalic SM- no vb lof good fm no regular ctx cbc today larc signed SM- no vb lof good fm no regular ctx cbc today larc signed. BS well controlled. 09/05/20 32w 4d 237 lb 120/72 Negative Negative 145 32 Cephalic Sm- no vb lof good fm no regular ctx 09/18/20 34w 3d 238 lb 106/66 Negative Negative 140 34 Cephalic SM- no vb lof good fm no reuglar ctx 10/03/20 36w 4d 240 lb 110/72 Negative Negative 140 36 Cephalic Sm- no vb lof good fm no reuglar ctx gbs 10/09/20 37w 3d 236 lb 6 oz 100/70 Negative Negative 135 37 Cephalic 1 40 -3 GP - no LOF, VB, DFM, ctx. Discussed labor preferences and routes of delivery. 10/18/20 38w 5d 237 lb 100/70 Negative Negative 135 38 Cephalic GP - no LOF, VB, DFM, ctx. BGTs remain controlled. Discussed IOL by 40w. Will see back early next week and schedule 10/23/20 39w 3d 234 lb 110/66 Negative Negative 140 39 Cephalic 3 60 -2 Sm- no vb lof good fm no regular ctx Sm- no vb lof good fm no regular ctx. bs abnormal yesterday, ready for IOL ACOG First Trimester First Trimester: Desire for , Alcohol, Tobacco Cessation, Illicit/Recreational Drug/Substance Use, Intimate Partner Violence, Barriers to care, Unstable Housing, Communication Barriers, Environmental/Work Hazards, Anticipated Course of Care, Toxoplasmosis Precations, Use of Any medications, Sexual activity, Dental Care, Sauna/Hot tub use, Seat Belt use, Childbirth classes/Hospital facilities, , Travel, Indications for Ultrasound and Screening for Aneuploidy; Discussed Exercise Second Trimester Second Trimester: Signs and Symptoms of Labor, Selecting a care provider, Reproductive Life Planning & Contreception, Care Planning, Tobacco Cessation, Depression/Anxiety and Intimate Partner Violence Third Trimester Third Trimester: Pain Management Plans, Labor support person(s), Immediate Larc, Movement Monitoring and Infant Feeding Yes ; Discussed Trial of Labor after Counseling and Discussed Circumcision preference Diagnostics Diagnostics Diagnostics: No Data to Display Details: HIV: Urine Culture: Sequential Screen: NIPT Screen: ROS Const Reports system reviewed and no additional complaints, except as documented Card Reports system reviewed and no additional complaints, except as documented Resp Reports system reviewed and no additional complaints, except as documented GI Reports system reviewed and no additional complaints, except as documented and Reports nausea Reports system reviewed and no additional complaints, except as documented Musc Reports system reviewed and no additional complaints, except as documented Exam Const General: cooperative, healthy appearing, comfortable and anxious HENMT Head: normal to inspection Nose: external nose normal Face and sinus: normal facial exam Neck Neck: normal visual inspection, full ROM and no lymphadenopathy Thyroid: thyroid normal Chest Chest palpation & inspection: normal inspection of the chest Resp Effort & Inspection: normal respiratory effort GI Inspection: normal to inspection Palpation: soft and other (gravid uterus) Other: vertex and appropriate size for gestational age Other: Cervical Exam: Extrem General: pedal edema Results POC Urinalysis 2 Dip (Clinic) Office Urine Glucose Negative Last Edit by Kelly Escamilla on 10/23/20 10:52 Office Urine Protein Negative Last Edit by Kelly Escamilla on 10/23/20 10:52 Coding Level of Care Code OB Routine Diagnoses Gestational diabetes O24.410 Gestational diabetes mellitus control: diet-controlled Trimester: third trimester Abnormal glucose affecting O99.810 Anxiety and depression F41.9; F32.9 Supervision of high risk , antepartum O09.90 AMA (advanced maternal age) multigravida 35+ O09.523 Trimester: third trimester Z3A.39 Weeks of gestation: 39 weeks Genital herpes affecting O98.313; A60.09 Trimester: third trimester Assessment and Plan Assessment and Plan (1) Gestational diabetes: Status: Acute Qualifiers: Gestational diabetes mellitus control: diet-controlled Trimester: third trimester Qualified Code(s): O24.410 - Gestational diabetes mellitus in , diet controlled Comment: Following with Dr. Hall. Growths ordered. Discussed testing if needs medication. Delivery 39-40w pending glycemic control. nl growth 09/05, 10/06 nl growth (2) Abnormal glucose affecting : Status: Acute Comment: 3 hr. GTT normal (3) Anxiety and depression: Status: Acute Comment: in counseling (4) Supervision of high risk , antepartum: Status: Acute Comment: PRR ISIDRA 10/27/20 boy Ezekial PC: Jennifer Spouse: Farzad (5) AMA (advanced maternal age) multigravida 35+: Status: Acute Qualifiers: Trimester: third trimester Qualified Code(s): O09.523 - Supervision of elderly multigravida, third trimester Comment: discussed genetic testing. Patient declines. (6) : Status: Acute Qualifiers: Weeks of gestation: 39 weeks Qualified Code(s): Z3A.39 - 39 weeks gestation of Comment: declines genetic and carrier testing. anatomy nl (7) Genital herpes affecting : Status: Acute Qualifiers: Trimester: third trimester Qualified Code(s): O98.313 - Other infections with a predominantly sexual mode of transmission complicating , third trimester; A60.09 - Herpesviral infection of other urogenital tract Comment: valtrex Plan Details Other Orders: Orders: POC Urinalysis 2 Dip (Clinic) Today
--- NOTE | 2020-10-24 11:21 | EX.PCM.OBRPT ---
Assessment & Plan (1) Gestational diabetes: QUALIFIERS: Trimester: third trimester Gestational diabetes mellitus control: diet-controlled Qualified Code(s): O24.410 - Gestational diabetes mellitus in , diet controlled COMMENT: Following with Dr. Hall. Edward ordered. Discussed testing if needs medication. Delivery 39-40w pending glycemic control. nl growth 09/05, 10/06 nl growth Maternal Data Information ISIDRA Calculator Estimated Delivery Date Method Current WG Current Estimate 10/27/20 LMP (Certain) 39w 5d Other Estimates 10/25/20 Ultrasound #1 40w 0d Vaginal Delivery Operative Information Pre-Operative Diagnosis: IOL gdma1 and ama Post-Operative Diagnosis: same Surgery / Procedure Performed: Spontaneous Vaginal Delivery Type of Anesthesia: Epidural Special Medications: none Estimated Blood Loss: 100 Fluids Replaced: crystalloid Findings Description of Procedure: Patient began pushing and delivered the head in the SHAYAN presentation. The head was delivered atraumatically. The anterior and posterior shoulders delivered without complication followed by the rest of the infant and the was placed on the maternal abdomen. Delayed cord clamping was employed for approximately 60 seconds. Cord was clamped and cut and gentle traction was applied to the cord and the placenta delivered spontaneously immediately following it was noted to be intact with three-vessel cord. The perineum and vagina were inspected and noted to have a small first-degree perineal laceration that was repaired in the usual fashion with 3-0 Vicryl Rapide. EBL was 100 cc. Patient and tolerated delivery well. Presentation: SHAYAN Amniotic Membrane Rupture Type: Artificial Amniotic Fluid Description: Clear Placental Delivery Description: Spontaneous Placenta Disposition: [facility] Cord Vessel Description: 3 Vessels Cord Entanglement: None Infant A Gender: Male Delayed Cord Clamping: Yes Post Vaginal Delivery Medications Given After Delivery: IV Pitocin Episiotomy Description: None Laceration: Perineal Extension/lac and 1st degree Complication Complications: None Procedures Urinary/Genital [id number]: [id number] Vaginal Delivery [facility]
[2020-10-24 11:45] LABS: Bedside Glucose 104 mg/dL (70-110)
[2020-10-24 11:51] LABS: Bedside Glucose 103 mg/dL (70-110)
[2020-10-24] MEDS: Naproxen 500 MG Tablet PO (22:09)
[2020-10-25 03:40] VITALS: BP 120/66; PULSE 74; RESP 18; TEMP 37
[2020-10-25 03:41] VITALS: BP 120/66; PULSE 74
[2020-10-25] MEDS: Acetaminophen 500 MG Tablet 1000 MG PO (03:43)
[2020-10-25 08:03] VITALS: BP 103/65; PULSE 67
[2020-10-25 08:08] VITALS: BP 103/65; PULSE 67; RESP 16; TEMP 36.3
--- NOTE | 2020-10-25 08:33 | PCM.PN.OB ---
Subjective Subjective Patient doing well without complaints. Tolerating PO. Ambulating and voiding without difficulty. Breast feeding well. Denies chest pain, shortness of breath, calf pain/swelling, fevers, chills, lightheadedness. Objective Data Objective Data Vital Signs: Vital Signs Temp Pulse Resp BP Pulse Ox 97.3 F L 67 16 103/65 99 10/25/20 08:08 10/25/20 08:08 10/25/20 08:08 10/25/20 08:08 10/24/20 16:36 Oxygen Delivery Method Room Air Weight: 230 lb Body Mass Index (BMI) 33.0 Intake & Output: Intake and Output for Last 24 Hours 10/23/20 10/24/20 10/25/20 23:59 23:59 23:59 Intake Total 1735.81 / 1735.81 Output Total 1350 / 1350 Balance 385.81 / 385.81 Lab / Micro Data Result Diagrams: 10/24/20 07:40 Labs: Laboratory Results - last 24 hr 10/24/20 07:40: Blood Type A POSITIVE, Antibody Screen NEGATIVE 10/24/20 09:19: POC Glucose 84 10/24/20 10:41: POC Glucose 104 10/24/20 11:45: POC Glucose 103 ROS Constitutional Constitutional: Denies fever(s) Cardiovascular Cardiovascular: Denies chest pain, dyspnea or lightheadedness Gastrointestinal Gastrointestinal: Reports abdominal pain; Denies constipation or diarrhea Neurologic Neurologic: Denies dizziness or headache(s) Physical Exam Const alert, oriented x3, no apparent distress, average body habitus, healthy appearing and well nourished HEENT normocephalic Head and Scalp: atraumatic Eyes PERRL and EOMs intact bilaterally Neck full ROM Lymph Lymphatic: no lymphadenopathy noted Resp normal respiratory effort, no retractions and no use of accessory muscles Cardio regular rate GI soft to palpation, non-tender and non-distended Palpation: other Other Details: fundus firm Extremity normal to inspection and no clubbing, cyanosis or edema Skin no rashes or lesions noted Neuro no focal motor deficits and no sensory deficits noted Psych mental status grossly normal, affect normal and speech normal Assessment & Plan (1) Normal vaginal delivery: COMMENT: 39 ama SM gdma1 boy kiran PLAN: s/p PPD # 1 1. routine post delivery care 2. breast feeding- support given 3. rh positive 4. rubella immune
--- NOTE | 2020-10-25 08:35 | PCM.DC ---
Discharge Instructions Diet Discharge Diet: No restrictions Activity Discharge Activity: Return to Normal Activity, May Not Drive (while taking narcotic pain medications.) and May Shower May resume sexual activity in: 4-6 weeks Dressing / Incision Call your doctor if your incision/area has: Continuous Slow Oozing, Sudden Increased Bleeding, Increased Pain/ Swelling, Increased Redness and Foul Smelling Discharge Follow Up Care When: Call to make an appointment with your doctor in 6 weeks. If you had elevated Blood Pressure or 4th degree laceration you will need to be seen in 2 weeks. Test Results: Test results from this visit will be discussed in further detail at your follow-up appointment, if applicable. Discharge Plan Admission Admit Date/Time: 10/24/20 07:05 Attending Provider: Holly Spear Primary Care Provider: Rajiv Chacko Instructions Patient Instructions: After a Vaginal Discharge Orders/Prescriptions Prescriptions: New ibuprofen 800 mg tablet 800 mg PO Q8H PRN (Reason: pain) Qty: 30 RF: 1 Continued ondansetron 4 mg tablet,disintegrating 4 mg PO Q8H PRN (Reason: nausea and vomiting) Qty: 30 RF: 2 [id number] fum-folic 1 EACH tablet 1 ea PO DAILY RF: 0 valacyclovir [Valtrex] 500 mg tablet 500 mg PO BID RF: 0 Referrals / Follow Up: Rajiv Chacko MD [Primary Care Provider] - Disposition Disposition (needs filled in before D/C Order can be placed): Home, Self Care
[2020-10-25] MEDS: Prenatal Vits Tablet 1 TABLET PO (10:37)
[2020-10-25 15:08] VITALS: BP 107/61; PULSE 77
[2020-10-25 15:14] VITALS: BP 107/61; PULSE 61; RESP 16; TEMP 36.3
== END 2020-10-25 15:30 | disposition home or self-care (01) | DRG 806 ==
PROVIDERS: Admitting Provider Obstetrics & Gynecology; PCP Family Medicine; Referring Provider Obstetrics & Gynecology; Visit Provider Obstetrics & Gynecology
DX: O24.420 Gestational diabetes mellitus in childbirth, diet controlled (principal); O98.32 Other infections with a predominantly sexual mode of transmission complicating childbirth; A60.00 Herpesviral infection of urogenital system, unspecified; O70.0 First degree perineal laceration during delivery; Z3A.39 39 weeks gestation of pregnancy; Z37.0 Single live birth
CPT/HCPCS: 59025; 59050; 82962; 85025; 86850; 86900; 86901; 99218; J7120; G0378

== ENCOUNTER → 2020-12-04 | Outpatient (CLI) | payer SELFPAY ==
[2020-12-07 13:29] LABS: HPV APTIMA, High Risk Negative (Negative)
== END | disposition home or self-care (01) ==
PROVIDERS: PCP Family Medicine; Referring Provider Obstetrics & Gynecology; Visit Provider Obstetrics & Gynecology
DX: Z12.4 Encounter for screening for malignant neoplasm of cervix (principal)
CPT/HCPCS: 87624; 88175; G0145

== ENCOUNTER → 2020-12-05 20:30 | Outpatient (CLI) | payer SELFPAY | PROVIDERS: PCP Family Medicine; Referring Provider Obstetrics & Gynecology; Visit Provider Obstetrics & Gynecology | DX: Z39.1 Encounter for care and examination of lactating mother (principal) | CPT/HCPCS: 96158; 96159 ==

== ENCOUNTER → 2020-12-18 21:15 | Outpatient (CLI) | payer SELFPAY | PROVIDERS: PCP Family Medicine; Referring Provider Obstetrics & Gynecology; Visit Provider Obstetrics & Gynecology | DX: Z39.1 Encounter for care and examination of lactating mother (principal) | CPT/HCPCS: 96158 ==

== ENCOUNTER → 2024-07-28 | Outpatient (CLI) | payer SELFPAY ==
[2024-07-30 21:07] LABS: Chlamydia By Nucleic Acid AMP Negative (Negative); Gonococcus By Nucleic Acid AMP Negative (Negative)
== END | disposition home or self-care (01) ==
LOC: LABSPEC 11:38
PROVIDERS: PCP Family Medicine; Referring Provider Obstetrics & Gynecology; Visit Provider Obstetrics & Gynecology
DX: O99.210 Obesity complicating pregnancy, unspecified trimester (principal); Z3A.00 Weeks of gestation of pregnancy not specified
CPT/HCPCS: 87077; 87086; 87088; 87186; 87491; 87591

== ENCOUNTER → 2024-08-13 | Outpatient (CLI) | payer SELFPAY | END | disposition home or self-care (01) | LOC: LABSPEC 11:53 | PROVIDERS: PCP Family Medicine; Referring Provider Advanced Practice Midwife; Visit Provider Advanced Practice Midwife | DX: N89.8 Other specified noninflammatory disorders of vagina (principal) | CPT/HCPCS: 87086; 87088 ==

== ENCOUNTER → 2024-08-30 | Outpatient (CLI) | payer MEDICAID, SELFPAY ==
[2024-08-30 12:44] LABS: Absolute Lymphocyte Count 1.82 X10^3/uL (0.83-4.51); Absolute Neutrophil Count 5.4 X10^3/uL (2.0-7.7); Basophil# 0.04 X10^3/uL; Basophil% 0.5 % (0-1); Eosinophil# 0.03 X10^3/uL; Eosinophils% 0.4 % (0-5); Hematocrit 35.8 % (37-47); Hemoglobin 12.2 g/dL (12.0-15.0); Lymphocyte # 1.82 X10^3/ul (0.83-4.51); Lymphocyte % 23.8 % (19-41); Mean Corp Hgb Conc 34.1 g/dL (32-36); Mean Corpuscular Hgb 31.6 pg (27.0-32.0); Mean Corpuscular Volume 92.7 fL (81-99); Mean Platelet Vol. 11.7 fl (6.2-12.0); Monocyte# 0.38 X10^3/uL; NRBC Flagged by Analyzer 0 % (0-5); Neutrophil # 5.37 X10^3/uL (2.7-7.7); Platelet Count 258 K/mm3 (150-450); RBC Distribution Width CV 13.2 % (11.6-14.6); RBC Distribution Width SD 44.9 fl (35.1-43.9); Red Blood Count 3.86 M/mm3 (4.2-5.4); White Blood Count 7.7 K/mm3 (4.4-11.0)
[2024-08-30 13:27] LABS: Hemoglobin A1c 5.8 % (<=5.6)
[2024-08-30 13:46] LABS: HIV Nonreactive (Nonreactive); Hepatitis B Surface Antigen Nonreactive (Nonreactive); Hepatitis C Antibody Nonreactive (Nonreactive); Rubella IgG REAC (Nonreactive); Syphilis Antibodies Nonreactive (Nonreactive)
== END | disposition home or self-care (01) ==
PROVIDERS: Obstetrics & Gynecology; PCP Family Medicine; Referring Provider Obstetrics & Gynecology; Visit Provider Obstetrics & Gynecology
DX: O99.210 Obesity complicating pregnancy, unspecified trimester (principal); Z3A.00 Weeks of gestation of pregnancy not specified; O23.40 Unspecified infection of urinary tract in pregnancy, unspecified trimester
CPT/HCPCS: 36415; 83036; 85025; 86703; 86762; 86780; 86803; 86850; 86900; 86901; 87086; 87088; 87340

== ENCOUNTER → 2024-09-08 | Outpatient (CLI) | payer OTHER, MEDICAID, SELFPAY ==
[2024-09-08 10:57] LABS: Glucose GTT-Gestation. Fasting 89 mg/dL (<105)
[2024-09-08 12:51] LABS: Glucose GTT-Gestational 1 Hr 169 mg/dL (<190)
[2024-09-08 14:07] LABS: Glucose GTT-Gestational 2 Hr 143 mg/dL (<165)
[2024-09-08 16:34] LABS: Glucose GTT-Gestational 3 Hr 126 L (<145)
== END | disposition home or self-care (01) ==
LOC: LAB 10:04
PROVIDERS: PCP Family Medicine; Referring Provider Obstetrics & Gynecology; Visit Provider Obstetrics & Gynecology
DX: O26.899 Other specified pregnancy related conditions, unspecified trimester (principal); E88.819 Insulin resistance, unspecified; Z3A.00 Weeks of gestation of pregnancy not specified
CPT/HCPCS: 36415; 82951; 82952

== ENCOUNTER → 2024-09-27 | Outpatient (CLI) | payer OTHER, MEDICAID, SELFPAY | END | disposition home or self-care (01) | LOC: LABSPEC 11:41 | PROVIDERS: PCP Family Medicine; Referring Provider Advanced Practice Midwife; Visit Provider Advanced Practice Midwife | DX: O23.40 Unspecified infection of urinary tract in pregnancy, unspecified trimester (principal); O26.899 Other specified pregnancy related conditions, unspecified trimester; R30.0 Dysuria; Z3A.00 Weeks of gestation of pregnancy not specified | CPT/HCPCS: 87086; 87088 ==

== ENCOUNTER → 2024-11-25 | Outpatient (CLI) | payer MEDICAID, SELFPAY ==
[2024-11-25 12:20] LABS: Hematocrit 35.2 % (37-47); Hemoglobin 11.9 g/dL (12.0-15.0); Immature Granulocytes Count 0.020 X10^3/uL (0.0-0.0); Mean Corp Hgb Conc 33.8 g/dL (32-36); Mean Corpuscular Volume 93.6 fL (81-99); Mean Platelet Vol. 12.1 fl (6.2-12.0); NRBC Flagged by Analyzer 0 % (0-5); Platelet Count 245 K/mm3 (150-450); RBC Distribution Width CV 12.7 % (11.6-14.6); RBC Distribution Width SD 43.4 fl (35.1-43.9); Red Blood Count 3.76 M/mm3 (4.2-5.4); White Blood Count 8.5 K/mm3 (4.4-11.0)
[2024-11-25 13:28] LABS: HIV Nonreactive (Nonreactive); Syphilis Antibodies Nonreactive (Nonreactive)
== END | disposition home or self-care (01) ==
PROVIDERS: PCP Family Medicine; Referring Provider Obstetrics & Gynecology; Visit Provider Obstetrics & Gynecology
DX: O09.92 Supervision of high risk pregnancy, unspecified, second trimester (principal); Z3A.00 Weeks of gestation of pregnancy not specified
CPT/HCPCS: 36415; 85025; 86703; 86780

== ENCOUNTER 2025-01-27 14:40 | Outpatient (CLI) | payer MEDICAID, SELFPAY ==
--- NOTE | 2025-01-27 14:53 | US_ITS ---
PROCEDURE: OB BIOPHYSICAL PROF W/O NST 01/27/2025 REASON FOR EXAM: VARIABLE AND NO ACCEL'S TECHNIQUE: Procedure Code: USBIOWO Modality: US Procedure: OB BIOPHYSICAL PROF W/O NST FINDINGS FINDINGS: Single live intrauterine in cephalic presentation. heart rate measures 147 beats per minute. movement, tone, and breathing are observed and within normal limits. Amniotic fluid volume is normal with an ANDRZEJ of 9.5 cm and largest pocket measuring 3.8 cm. Placenta is anterior in location and not low-lying. Placenta demonstrates grade 2 maturation, appropriate for gestational age. sex is male. Estimated gestational age by last menstrual period is 34 weeks and 6 days. BIOPHYSICAL PROFILE: breathing movements: 2 Gross body movements: 2 tone: 2 Amniotic fluid volume: 2 Total score: 8 out of 8 US/OB Biophysical Prof W/O NST IMPRESSION: Normal biophysical profile (8/8). Normal amniotic fluid volume. Single live intrauterine in cephalic presentation. Anterior placenta, grade 2, not low-lying. Findings consistent with a reassuring status at approximately 34 weeks an d 6 days gestation. Reading Location: [id number]
[2025-01-27 15:00] VITALS: BP 118/71; PULSE 86
[2025-01-27 15:01] VITALS: RESP 13; TEMP 36.4; O2SAT 100
[2025-01-27 15:11] VITALS: BMI 36.7
--- NOTE | 2025-01-27 17:45 | OB.TRI.HP_ITS ---
HPI - General HPI Narrative BRITTANY ROCA, is a 39 y/o @ 34 weeks 6 days who presents to L&D for a bpp due to non-reactive nst in office. Bpp was found to be 8/8 and nst reactive without decelerations. Maternal Data Information ISIDRA Calculator Estimated Delivery Date Method Current WG Current Estimate 03/04/25 LMP (Certain) 34w 6d Other Estimates 03/10/25 Ultrasound #1 34w 0d 03/04/25 Ultrasound #2 34w 6d PFSH PFSH Medical History Varicose veins of both lower extremities Seasonal allergies Normal vaginal delivery Superficial varicosities Depression Gestational diabetes PCOS (polycystic ovarian syndrome) Genital herpes affecting Home Medications Medication Instructions Recorded Last Taken Type mv-mn 110-FA 180 mcg-om3 35 mg-dha tab PO DAILY Unknown History 25 mg-epa 5 mg-fish oil chew tablet flash glucose scanning reader #1 ea 08/31/24 Unknown R x (FreeStyle Todd 2 [place]) flash glucose sensor (FreeStyle #1 ea 08/31/24 Unknown Rx Todd 2 Sensor kit) metformin 500 mg tablet 500 mg PO .COMPLEX #60 tabs 01/03/25 Unknown Rx valacyclovir 500 mg tablet 500 mg PO QDAY #30 tabs 11/05 Unknown Rx Allergy/AdvReac Type Severity Reaction Status Date / Time avocado (avacado) Allergy Intermediate Swelling Verified 01/27/25 14:03 of tongue Family History Aunt Breast cancer, Onset Age: 40 Maternal- unknown if genetic testing was done. 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 current occupational exposures/hazards: No pets and animals: Yes pets and animals: dog(s) history of recent travel: Yes (June) out of state: Yes out of country: No sexually active: Yes Smoking Status: Never smoker second hand exposure: No alcohol intake: current alcohol intake frequency: holidays/special occasions only details: not while substance use type: does not use well-balanced diet: daily or most days caffeine: No eating out: 1-3 times/week during the past year weight has: increased > 10 lbs what type of physical activity do you participate in: other details: crossfit frequency: 1-2 times per week duration: 45-60 minutes/day amanda/worship: Rastafarian seatbelt use: always do you feel safe at home: Yes additional social history: - Farzad History 3 Elective abortions Hx Para 2 Spontaneous abortions Hx # Term Pregnancies Ectopic pregnancies Hx # Pregnancies Multiple births # of living children 2 Past Pregnancies Del. Date Name GA/Weeks Outcome Route Bth Weight Gen Labor Lgth Anesthesia Del Locatn Provider FOB 08/26/18 Jennifer 40 live - full term 9lbs Female 16 hours none [facility] ZACH Panda 10/24/20 Aleksander 39 live - full term 8#10oz Male epi dural [facility] Dr. Rainer Panda Delivery Date: 08/26/18 Last Updated by: Pauline Tay 3rd degree laceration; NICU for possible NEC- she did not have Visit Details OB Flowsheet Initial Weight: Not Recorded Date - - - - - - - - - - - - - EGA Weight BP Urine Prot - - - - - - - - - - - - - Glucose FHR FuHt Pres Dilation - - - - - - - - - - - - - Effaced St Visit Note 07/28/24 - - - - - - - - - - - - - 8w 5d 233 lb 2 oz 129/79 - - - - - - - - - - - - - 170 - - - - - - - - - - - - - SM- CRL 1.4 not cons with LMP 08/13/24 - - - - - - -- - - - - - - 11w 0d Negative - - - - - - - - - - - - - Negative - - - - - - - - - - - - - nurse visit for UTI sx. culture sent and rx for atb sent due to sx. 08/30/24 - - - - - - - - - - - - - 13w 3d 234 lb 6 oz 115/73 Nega tive - - - - - - - - - - - - - Negative 155 - -- - - - - - - - - - - - JV- no lof, vagi nal bleeding, or cramping. due date cleared up. Needs clean catch test of cure and new ob labs 09/27/24 - - - - - - - - - - - - - 17w 3d 236 lb 6 oz 116/75 - - - - - - - - - - - - - 155 - - - - - - - - - - - - - KW- US scheduled with [facility]. no vb/cramping. +flutters. On metformin 500mg for Blood sugars. Reports fasting BS under 95. Encouraged to continue checking BS and follow up with DR Kim. doing well on ZOloft. KW- US scheduled with [facility]. n o vb/cramping. +flutters. On metformin 500mg for Blood sugars. Reports fasting BS under 95. Encouraged to continue checking BS- has not been consistent- and follow up with DR Kim. doing well on ZOloft. 10/25/24 - - - - - - - - - - - - - 21w 3d 236 lb 2 oz 122/70 Nega tive - - - - - - - - - - - - - Negative 142 - - - - - - - - - - - - - -No VBAroldo Tan Insulin resistant/on metformin and [facility] ODONNELL Insulin r esistant/on metformin and seeing Dr Hall. 11/25/24 - - - - - - - - - - - - - 25w 6d 236 lb 9 oz 97/64 Nega tive - - - - - - - - - - - - - Negative 140 26 - - - - - - - - - - - - - SM- no vb lof go od fm n oregular ctx 12/22/24 - - - - - - - - - - - - - 29w 5d 241 lb 8 oz 113/79 Nega tive - - - - - - - - - - - - - Negative 150 32 - - - - - - - - - - - - - - no vb/lof/ct x. grant Hall following blood sugars. 1000mg of metformin nightly. growth US ordered for S>D 12/28/24 - - - - - - - - - - - - - 30w 4d 241 lb 6 oz 102/66 Nega tive - - - - - - - - - - - - - Negative 153 33 - - - - - - - - - - - - - MH-No VB,LOF, CT X. Good FM. Feeling more anxious, not sure zoloft working. Reassured concerning risks to . Discussed changing to buspar or increasing dosage. She prefers to increase dosage. Is seeing counselor 3 X month 01/06/25 - - - - - - - - - - - - - 31w 6d 243 lb 5 oz 105/65 Nega tive - - - - - - - - - - - - - Negative 157 34 - - - - - - - - - - - - - MH-No VB, LOF. G ood FM. Stopped zoloft completely and feels much better. Glucose levels followed per endo and at nl ranges. NSTs2 X wk start next week and has growth US next week 01/11/25 - - - - - - - - - - - - - 32w 4d 247 lb 2 oz 108/67 Nega tive - - - - - - - - - - - - - Negative 150 - - - - - - - - - - - - - JV- nst only tod ay. reactive. states metfomin is helping with fasting levels. followed by Dr. Hall. She has a growth scan now. 01/14/25 - - - - - - - - - - - - - 33w 0d 247 lb 3 oz 116/71 Nega tive - - - - - - - - - - - -- - Negative 135 - - - - - - - - - - - - - - no vb/lof/ct x good fm. reactive NST. MIL in care home-noticing some spikes in blood sugars with stress. still following with . 01/17/25 - - - - - - - - - - - - - 33w 3d 244 lb 9 oz 106/68 Nega tive - - - - - - - - - - - - - Negative 140 34 - - - - - - - - - - - - - MH-No VB, LOF. G ood FM. Reactive NST. FLu vaccine given 01/20/25 - - - - - - - - - - - - - 33w 6d 247 lb 7 oz 112/70 Nega tive - - - - - - - - - - - - - Negative 130 - - - - - - - - - - - - - KW- No vb/lof/ct x. good fm. reactive NST 01/24/25 - - - - - - - - - - - - - 34w 3d 250 lb 7 oz 103/69 Nega tive - - - - - - - - - - - - - Negative 135 - - - - - - - - - - - - - KW- no vb/lof/ct x. good fm reactive nst has growth US scheduled. blood sugars controlled. 01/27/25 - - - - - - - - - - - - - 34w 6d 249 lb 1 oz 113/74 Nega tive - - - - - - - - - - - - - Negative 130 - - - - - - - - - - - - - KW- NST only. no t reactive. to WP for BPP. ROS Constitutional Constitutional: Reports systems reviewed and no addt'l complaints, except as documented Gastrointestinal Gastrointestinal: Denies bloating, constipation, cramping, diarrhea, nausea or vomiting Genitourinary Genitourinary: Reports other Details: Denies vaginal odor, vaginal bleeding, or vaginal discharge ; Denies difficulty urinating or flank pain Physical Exam HEENT normocephalic Resp normal respiratory effort and normal air movement Extremity normal to inspection General Extremity: edema bilateral (trace ) NST FHR Rate Baby A Baseline: 140 Variability:: Moderate Accelerations:: 15 x 15 Decelerations:: None NST Reactive:: Yes FHR Category:: Category I Assessment & Plan (1) Uterine size date discrepancy : COMMENT: growth US ordered:32 wk:EFW 68%, AC 98%. 36 w scheduled (2) Gestational diabetes: QUALIFIERS: Gestational diabetes mellitus control: oral hypoglycemic-controlled Trimester: second trimester Qualified Code(s): O24.415 - Gestational diabetes mellitus in , controlled by oral hypoglycemic drugs (3) Insulin resistance complicating : COMMENT: on metformin; Dr Hall manages. Growth US 32 and 36 wk. Twice wkly NST at 32 wk. Del at 39 wk (4) UTI (urinary tract infection) during : QUALIFIERS: Trimester: second trimester Qualified Code(s): O23.42 - Unspecified infection of urinary tract in , second trimester (5) AMA (advanced maternal age) multigravida 35+: QUALIFIERS: Trimester: third trimester Qualified Code(s): O09.523 - Supervision of elderly multigravida, third trimester COMMENT: discussed genetic testing. Patient declines. (6) Genital herpes affecting : QUALIFIERS: Trimester: third trimester Qualified Code(s): O98.313 - Other infections with a predominantly sexual mode of transmission complicating , third trimester; A60.09 - Herpesviral infection of other urogenital tract COMMENT: valtrex at 34-36 weeks (7) Obesity affecting : QUALIFIERS: Trimester: second trimester Obesity type affecting : unspecified obesity Qualified Code(s): O99.212 - Obesity complicating , second trimester COMMENT: HGBA1C, BMI 33 (8) History of gestational diabetes mellitus (GDM) in prior , currently : (9) Anxiety: COMMENT: zoloft stopped. Continue counseling 3 X a week. "feels much better off med" (10) Supervision of high-risk : QUALIFIERS: Trimester: third trimester Qualified Code(s): O09.93 - Supervision of high risk , unspecified, third trimester COMMENT: PRR , ISIDRA 03/04/25, PC Aleksander Rodriguez, Farzad (11) : QUALIFIERS: Weeks of gestation: 34 weeks Qualified Code(s): Z3A.34 - 34 weeks gestation of COMMENT: declined NIPT & Carrier testing, nl 3 HR GTT, nl anatomy PLAN: Plan reactive nst. and bpp8/9- ok to dc to home Charges/Coding Multi Select Codes Visit Charges Office Visit/Consults: 70552 OV L3 Est 20min Urinary/Genital Urinary/Genital CPT Codes: 89897-24 non-stress test Interp
--- NOTE | 2025-01-27 17:45 | OB.TRI.NOTE ---
HPI - General HPI Narrative BRITTANY ROCA, is a 39 y/o @ 34 weeks 6 days who presents to L&D for a bpp due to non-reactive nst in office. Bpp was found to be 8/8 and nst reactive without decelerations. Maternal Data Information ISIDRA Calculator Estimated Delivery Date Method Current WG Current Estimate 03/04/25 LMP (Certain) 34w 6d Other Estimates 03/10/25 Ultrasound #1 34w 0d 03/04/25 Ultrasound #2 34w 6d PFSH PFSH Medical History Varicose veins of both lower extremities Seasonal allergies Normal vaginal delivery Superficial varicosities Depression Gestational diabetes PCOS (polycystic ovarian syndrome) Genital herpes affecting Home Medications Medication Instructions Recorded Last Taken Type mv-mn 110-FA 180 mcg-om3 35 mg-dha tab PO DAILY 07/23/24 Unknown History 25 mg-epa 5 mg-fish oil chew tablet flash glucose scanning reader #1 ea 08/31/24 Unknown Rx (FreeStyle Todd 2 [place]) flash glucose sensor (FreeStyle #1 ea 08/31/24 Unknown Rx Todd 2 Sensor kit) metformin 500 mg tablet 500 mg PO .COMPLEX #60 tabs 01/03/25 Unknown Rx valacyclovir 500 mg tablet 500 mg PO QDAY #30 tabs 01/18/25 Unknown Rx Allergy/AdvReac Type Severity Reaction Status Date / Time avocado (avacado) Allergy Intermediate Swelling Verified 01/27/25 14:03 of tongue Family History Aunt Breast cancer, Onset Age: 40 Maternal- unknown if genetic testing was done. 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 current occupational exposures/hazards: No pets and animals: Yes pets and animals: dog(s) history of recent travel: Yes (- June) out of state: Yes out of country: No sexually active: Yes Smoking Status: Never smoker second hand exposure: No alcohol intake: current alcohol intake frequency: holidays/special occasions only details: not while substance use type: does not use well-balanced diet: daily or most days caffeine: No eating out: 1-3 times/week during the past year weight has: increased > 10 lbs what type of physical activity do you participate in: other details: crossfit frequency: 1-2 times per week duration: 45-60 minutes/day amanda/yazidi: Catholic seatbelt use: always do you feel safe at home: Yes additional social history: - Farzad History 3 Elective abortions Hx Para 2 Spontaneous abortions Hx # Term Pregnancies Ectopic pregnancies Hx # Pregnancies Multiple births # of living children 2 Past Pregnancies Del. Date Name GA/Weeks Outcome Route Bth Weight Infant Gen Labor Lgth Anesthesia Del Locatn Provider FOB 08/26/18 Jennifer 40 live - full term 9lbs Female 16 hours none [facility] EB Farzad 10/24/20 Aleksander 39 live - full term 8#10oz Male epidural [facility] Dr. Rainer Panda Delivery Date: 08/26/18 Last Updated by: Pauline Tay 3rd degree laceration; NICU for possible NEC- she did not have Visit Details OB Flowsheet Initial Weight: Not Recorded Date <del> </del> EGA Weight BP Urine Prot <del> </del> Glucose FHR FuHt Pres Dilation <del> </del> Effaced St Visit Note 07/28/24 <del> </del> 8w 5d 233 lb 2 oz 129/79 <del> </del> 170 <del> </del> SM- CRL 1.4 not cons with LMP 08/13/24 <del> </del> 11w 0d Negative <del> </del> Negative <del> </del> nurse visit for UTI sx. culture sent and rx for atb sent due to sx. 08/30/24 <del> </del> 13w 3d 234 lb 6 oz 115/73 Negative <del> </del> Negative 155 <del> </del> JV- no lof, vaginal bleeding, or cramping. due date cleared up. Needs clean catch test of cure and new ob labs 09/27/24 <del> </del> 17w 3d 236 lb 6 oz 116/75 <del> </del> 155 <del> </del> KW- US scheduled with MFM. no vb/cramping. +flutters. On metformin 500mg for Blood sugars. Reports fasting BS under 95. Encouraged to continue checking BS and follow up with DR Kim. doing well on ZOloft. KW- US scheduled with MFM. no vb/cramping. +flutters. On metformin 500mg for Blood sugars. Reports fasting BS under 95. Encouraged to continue checking BS-has not been consistent- and follow up with DR Kim. doing well on ZOloft. 10/25/24 <del> </del> 21w 3d 236 lb 2 oz 122/70 Negative <del> </del> Negative 142 <del> </del> MH-No VB. Good FM. Insulin resistant/on metformin and seeing Dr Hall MH-No VB. Good FM. Insulin resistant/on metformin and seeing Dr Hall. 11/25/24 <del> </del> 25w 6d 236 lb 9 oz 97/64 Negative <del> </del> Negative 140 26 <del> </del> SM- no vb lof good fm n oregular ctx 12/22/24 <del> </del> 29w 5d 241 lb 8 oz 113/79 Negative <del> </del> Negative 150 32 <del> </del> KW- no vb/lof/ctx. good fm. Rafael following blood sugars. 1000mg of metformin nightly. growth US ordered for S>D 12/28/24 <del> </del> 30w 4d 241 lb 6 oz 102/66 Negative <del> </del> Negative 153 33 <del> </del> MH-No VB,LOF, CTX. Good FM. Feeling more anxious, not sure zoloft working. Reassured concerning risks to . Discussed changing to buspar or increasing dosage. She prefers to increase dosage. Is seeing counselor 3 X month 01/06/25 <del> </del> 31w 6d 243 lb 5 oz 105/65 Negative <del> </del> Negative 157 34 <del> </del> MH-No VB, LOF. Good FM. Stopped zoloft completely and feels much better. Glucose levels followed per endo and at nl ranges. NSTs2 X wk start next week and has growth US next week 01/11/25 <del> </del> 32w 4d 247 lb 2 oz 108/67 Negative <del> </del> Negative 150 <del> </del> JV- nst only today. reactive. states metfomin is helping with fasting levels. followed by Dr. Hall. She has a growth scan now. 01/14/25 <del> </del> 33w 0d 247 lb 3 oz 116/71 Negative <del> </del> Negative 135 <del> </del> KW- no vb/lof/ctx good fm. reactive NST. [facility] in [facility]-noticing some spikes in blood sugars with stress. still following with . 01/17/25 <del> </del> 33w 3d 244 lb 9 oz 106/68 Negative <del> </del> Negative 140 34 <del> </del> MH-No VB, LOF. Good FM. Reactive NST. FLu vaccine given 01/20/25 <del> </del> 33w 6d 247 lb 7 oz 112/70 Negative <del> </del> Negative 130 <del> </del> KW- No vb/lof/ctx. good fm. reactive NST 01/24/25 <del> </del> 34w 3d 250 lb 7 oz 103/69 Negative <del> </del> Negative 135 <del> </del> KW- no vb/lof/ctx. good fm reactive nst has growth US scheduled. blood sugars controlled. 01/27/25 <del> </del> 34w 6d 249 lb 1 oz 113/74 Negative <del> </del> Negative 130 <del> </del> KW- NST only. not reactive. to WP for BPP. ROS Constitutional Constitutional: Reports systems reviewed and no addt'l complaints, except as documented Gastrointestinal Gastrointestinal: Denies bloating, constipation, cramping, diarrhea, nausea or vomiting Genitourinary Genitourinary: Reports other Details: Denies vaginal odor, vaginal bleeding, or vaginal discharge ; Denies difficulty urinating or flank pain Physical Exam HEENT normocephalic Resp normal respiratory effort and normal air movement Extremity normal to inspection General Extremity: edema bilateral (trace ) NST FHR Rate Baby A Baseline: 140 Variability:: Moderate Accelerations:: 15 x 15 Decelerations:: None NST Reactive:: Yes FHR Category:: Category I Assessment & Plan (1) Uterine size date discrepancy : COMMENT: growth US ordered:32 wk:EFW 68%, AC 98%. 36 w scheduled (2) Gestational diabetes: QUALIFIERS: Gestational diabetes mellitus control: oral hypoglycemic-controlled Trimester: second trimester Qualified Code(s): O24.415 - Gestational diabetes mellitus in , controlled by oral hypoglycemic drugs (3) Insulin resistance complicating : COMMENT: on metformin; Dr Hall manages. Growth US 32 and 36 wk. Twice wkly NST at 32 wk. Del at 39 wk (4) UTI (urinary tract infection) during : QUALIFIERS: Trimester: second trimester Qualified Code(s): O23.42 - Unspecified infection of urinary tract in , second trimester (5) AMA (advanced maternal age) multigravida 35+: QUALIFIERS: Trimester: third trimester Qualified Code(s): O09.523 - Supervision of elderly multigravida, third trimester COMMENT: discussed genetic testing. Patient declines. (6) Genital herpes affecting : QUALIFIERS: Trimester: third trimester Qualified Code(s): O98.313 - Other infections with a predominantly sexual mode of transmission complicating , third trimester; A60.09 - Herpesviral infection of other urogenital tract COMMENT: valtrex at 34-36 weeks (7) Obesity affecting : QUALIFIERS: Trimester: second trimester Obesity type affecting : unspecified obesity Qualified Code(s): O99.212 - Obesity complicating , second trimester COMMENT: HGBA1C, BMI 33 (8) History of gestational diabetes mellitus (GDM) in prior , currently : (9) Anxiety: COMMENT: zoloft stopped. Continue counseling 3 X a week. "feels much better off med" (10) Supervision of high-risk : QUALIFIERS: Trimester: third trimester Qualified Code(s): O09.93 - Supervision of high risk , unspecified, third trimester COMMENT: PRR , ISIDRA 03/04/25, PC Aleksander Rodriguez, Farzad (11) : QUALIFIERS: Weeks of gestation: 34 weeks Qualified Code(s): Z3A.34 - 34 weeks gestation of COMMENT: declined NIPT & Carrier testing, nl 3 HR GTT, nl anatomy PLAN: Plan reactive nst. and bpp8/9- ok to dc to home Charges/Coding Multi Select Codes Visit Charges Office Visit/Consults: 81661 OV L3 Est 20min Urinary/Genital Urinary/Genital CPT Codes: 77060-22 non-stress test Interp
== END 2025-01-27 17:20 | disposition home or self-care (01) ==
LOC: WPOUT 14:47 → WP 14:47
PROVIDERS: PCP Family Medicine; Referring Provider Obstetrics & Gynecology; Visit Provider Obstetrics & Gynecology
DX: O36.8330 Maternal care for abnormalities of the fetal heart rate or rhythm, third trimester, not applicable or unspecified (principal); O26.843 Uterine size-date discrepancy, third trimester; O24.415 Gestational diabetes mellitus in pregnancy, controlled by oral hypoglycemic drugs; O26.893 Other specified pregnancy related conditions, third trimester; E88.819 Insulin resistance, unspecified; O09.523 Supervision of elderly multigravida, third trimester; O98.313 Other infections with a predominantly sexual mode of transmission complicating pregnancy, third trimester; A60.09 Herpesviral infection of other urogenital tract; O99.213 Obesity complicating pregnancy, third trimester; O99.343 Other mental disorders complicating pregnancy, third trimester; F41.9 Anxiety disorder, unspecified; Z3A.34 34 weeks gestation of pregnancy; Z87.59 Personal history of other complications of pregnancy, childbirth and the puerperium
CPT/HCPCS: 59025; 59050; 76819; 99221; G0378

== ENCOUNTER → 2025-02-07 | Outpatient (CLI) | payer MEDICAID, SELFPAY | END | disposition home or self-care (01) | LOC: LABSPEC 10:22 | PROVIDERS: PCP Family Medicine; Visit Provider Obstetrics & Gynecology | DX: O09.93 Supervision of high risk pregnancy, unspecified, third trimester (principal); Z3A.00 Weeks of gestation of pregnancy not specified | CPT/HCPCS: 87081 ==

== ENCOUNTER 2025-02-26 08:24 | Inpatient (IN) | payer MEDICAID, SELFPAY ==
[2025-02-26] VITALS (47 sets, daily range): BP systolic 114–162; BP diastolic 58–91; PULSE 75–118; RESP 16–18; TEMP 36.3–37.2; O2SAT 92–100; BMI 38.0
--- OUTSIDE RECORDS SUMMARY | 2025-02-26 07:08 | XMS RPT_ITS | CCD ---
Author Organization [facility] Care Team Providers Care Material Specialist Name Role Phone Ricco SANTACRUZ, Dr. Vance Primary Care Provider Dr. Karen Chacko MD Referring Provider 1([facility])[phone] Rainer SANTACRUZ, Dr. Barrera Attending Provider Dr. Holly Spear MD Referring Provider Alycia Torres CNM Attending Provider 1([facility])[phone] Alycia Torres CNM Referring Provider 1([facility])[phone] Sarah Harris DO Attending Provider Dr. Sarah Harris DO Referring Provider [place] HEEL SEAT FILLER-C, Shannon Attending Provider 1([facility])[phone] King NEETA, Dr. Up Attending Provider 1([facility])[phone] Ricco SANTACRUZ, Dr. Vance Primary Care Provider 1([facility])[phone] Dr. Karen Chacko MD Referring Provider 1([facility])[phone] Holly Spear MD Attending Provider Dr. Holly Spear MD Referring Provider [phone] Dr. Karen Chacko MD Primary Care Provider Dr. Karen Chacko MD Referring Provider [phone] Alycia Torres CNM Attending Provider 1([facility])[phone] Alycia Torres CNM Referring Provider 1([facility])[phone] Dr. Karen Chacko MD Primary Care Physician Dr. Karen Chacko MD Referring Provider 1([facility])[phone] Alyica Torres CNM Attending Physician 1([facility])[phone] Thao HEEL SEAT FILLER-C, Shannon Attending Physician [phone] King NEETA, Dr. Up Attending Physician Rainer SANTACRUZ, Dr. Barrera Attending Physician Dr. Holly Spear MD Referring Provider Jeremie Sharma DO, Dr. Smith Attending Physician Ricco SANTACRUZ, Dr. Vance Primary Care Physician Ricco SANTACRUZ, Dr. Vance Referring Provider [phone] Alycia Torres CNM Attending Physician [phone] Jeremie Sharma DO, Dr. Smith Referring Provider Jeremie Sharma DO, Dr. Smith Nurse Practitioner KELECHI ARRIOLA Attending Unavailable CHACKO, KAREN MANDO Primary Care Unavailable THAO, SHANNON S Referring Unavailable CHACKO, KAREN MANDO Primary Care Unavailable MOUSTAPHA NICHOLS Attending Unavailable THAO, SHANNON S Referring Unavailable CHACKO, KAREN MANDO Primary Care Unavailable JOE PARIKH Attending Unavailable SARAH HYDE Referring Unavailab anna Chacko MD, Dr. Vance Primary Care Physician Dr. Karen Chacko MD Referring Provider [phone] Thao HEEL SEAT FILLER-C, Shannon Attending Physician [phone] [place], Dr. Up Attending Physician Rainer SANTACRUZ, Dr. Barrera Attending Physician Dr. Holly Spear MD Referring Provider Alycia Torres CNM Attending Physician [phone] Dr. Sarah Harris DO Attending Physician Dr. Sarah Harris DO Referring Provider Jeremie Sharma DO, Dr. Smith Nurse Practitioner Holly Spear Attending Unavailable Ricco, Karen Primary Care Unavailable Holly Spear Referring Unavailable Chacko, Karen Referring Unavailable Chacko, Karen Primary Care Unavailable Shannon Osuna NP Attending Unavailable Chacko, Karen Referring Unavailable Chacko, Karen Primary Care Unavailable Thao HEEL SEAT FILLER, Shannon Attending Unavailable Holly Spear Attending Unavailable Chacko, Karen Primary Care Unavailable Holly Spear Referring Unavailable Holly Spear Attending Unavailable Chacko, Karen Referring Unavailable Chacko, Karen Primary Care Unavailable Chacko, Karen Referring Unavailable Chacko, Karen Primary Care Unavailable Alycia Torres Attending Unavailable Chacko, Karen Referring Unavailable Alycia Torres Attending Unavailable Chacko, Karen Primary Care Unavailable Chacko, Karen Referring Unavailable Alycia Torres Attending Unavailable Chacko, Karen Primary Care Unavailable Chacko, Karen Referring Unavailable Chacko, Karen Primary Care Unavailable Jeovanny Hall Attending Unavailable Chacko, Karen Referring Unavailable Chacko, Karen Primary Care Unavailable Thao HEEL SEAT FILLER, Shannon Attending Unavailable Chacko, Karen Referring Unavailable Chacko, Karen Primary Care Unavailable Alycia Torres Attending Unavailable Sarah Harris Attending Unavailabl e Chacko, Karen Referring Unavailable Chacko, Karen Primary Care Unavailable Chacko, Karen Referring Unavailable Chacko, Karen Primary Care Unavailable Alycia Torres Attending Unavailable Chacko, Karen Referring Unavailable Holly Spear Attending Unavailable Chacko, Karen Primary Care Unavailable Chacko, Karen Referring Unavailable Alycia Torres Attending Unavailable Chacko, Karen Primary Care Unavailable Sarah Harris Attending Unavailabl e Chacko, Karen Referring Unavailable Chacko, Karen Primary Care Unavailable Chacko, Karen Primary Care Unavailable Alycia Torres Referring Unavailable Alycia Torres Attending Unavailable Chacko, Karen Referring Unavailable Chacko, Karen Primary Care Unavailable Thao HEEL SEAT FILLER, Shannon Attending Unavailable Chacko, Karen Referring Unavailable Chacko, Karen Primary Care Unavailable Alycia Torres Attending Unavailable Sarah Harris Referring Unavailabl e Sarah Harris Attending Unavailabl e Chacko, Karen Primary Care Unavailable Chacko, Karen Referring Unavailable Alycia Torres Attending Unavailable Chacko, Karen Primary Care Unavailable Chacko, Karen Referring Unavailable Alycia Torres Attending Unavailable Chacko, Karen Primary Care Unavailable Sarah Harris Attending Unavailabl e Chacko, Karen Referring Unavailable Chacko, Karen Primary Care Unavailable Chacko, Karen Referring Unavailable Alycia Torres Attending Unavailable Chacko, Karen Primary Care Unavailable Chacko, Karen Referring Unavailable Alycia Torres Attending Unavailable Chacko, Karen Primary Care Unavailable Chacko, Karen Referring Unavailable Chacko, Karen Primary Care Unavailable Holly Spear Attending Unavailable Sarah Harris Attending Unavailabl e Vande Velde, Sarah Referring Unavailabl e Vande Sarah Sharma Consulting Unavailabl e Chacko, Karen Primary Care Unavailable Chacko, Karen Referring Unavailable MarcHolly joshi Attending Unavailable Chacko, Karen Primary Care Unavailable Chacko, Karen Referring Unavailable Chacko, Karen Primary Care Unavailable Holly Spear Attending Unavailable Chacko, Karen Primary Care Unavailable Holly Spear Attending Unavailable Franke Velmaría, Sarah Attending Unavailabl e Vande Velde, Sarah Referring Unavailabl e Chacko, Karen Primary Care Unavailable Holly Spear Admitting Unavailable Chacko, Karen Primary Care Unavailable Holly Spear Attending Unavailable Holly Spear Attending Unavailable Chacko, Karen Primary Care Unavailable Holly Spear Referring Unavailable Chacko, Karen Primary Care Unavailable Alycia Torres Attending Unavailable Alycia Torres Referring Unavailable Allergies Allergy Classification Reported Allergen(s) Allergy Type Date of Onset Reaction(s) Facility (20 sources) avocado allergenic extract Drug Allergy 5 Swelling of tongue [facility] (1 source) avocado oil Drug Allergy 5 [facility] Repository Medications Current Medications Medication Drug Class(es) Dates Sig (Normalized) Sig (Original) Flash Glucose Scanning [place] (Freestyle Todd 2 [place]) misc (18 sources) Start: 08-31-2024 Flash Glucose Scanning [place] (Freestyle Todd 2 [place]) misc Active 0 .Route 1 August 30, 2024 11:00pm As directed Start: 08-31-2024 Flash Glucose Scanning [place] (Freestyle Todd 2 [place]) misc Active 0 .Route 1 0 August 31, 2024 12:00am As directed Start: 08-31-2024 Flash Glucose Scanning [place] (Freestyle Todd 2 [place]) misc Active 0 .Route 1 August 31, 2024 12:00am As directed Flash Glucose Sensor (Freest yle Todd 2 Sensor) kit (18 sources) Start: 08-31-2024 Flash Glucose Sensor (Freestyle Todd 2 Sensor) kit Active 0 .Route 1 August 30, 2024 11:00pm As directed Start: 08-31-2024 Flash Glucose Sensor (Freestyle Todd 2 Sensor) kit Active 0 .Route 1 August 31, 2024 12:00am As directed Start: 08-31-2024 Flash Glucose Sensor (Freestyle Todd 2 Sensor) kit Active 0 .Route 1 August 31, 2024 12:00am As directed metFORMIN hydrochloride 500 mg oral tablet (20 sources) Biguanide Start: 02-02-2025 take 2 tablets by mouth twice daily at mealtime Metformin 500 mg tablet Active 1000 mg PO 2 times per day with meals 360 1 February 02, 2025 7:00am Gestational diabetes mellitus (GDM) Complies with drug therapy Start: 02-02-2025 take 2 tablets by mo uth twice daily at mealtime Start: 02-02-2025 take 2 tablets by mo uth twice daily at mealtime Start: 02-02-2025 take 2 tablets by mo uth twice daily at mealtime Start: 02-02-2025 take 2 tablets by mo uth twice daily at mealtime Start: 09-27-2024 End: 02-02-2025 Metformin 500 mg tablet Discontinued 500 mg PO .COMPLEX October 08, 2024 9:26am January 03, 2025 12:47pm 2 at supper Start: 08-09-2024 End: 09-27-2024 Metformin 500 mg tablet Discontinued 500 mg PO .COMPLEX 60 3 August 08, 2024 11:00pm September 27, 2024 9:35am 500 mg orally one tablet with supper for 4 days, then 2 tabs at supper; Mv-Mn 606-Ad-Ro1-Dha-Epa-Fis h 180 mcg-35 mg- 25 mg-5 mg tablet,chewable (19 sources) Start: 07-23-2024 Mv-Mn 110-Fa-O z6-Snd-Nxk-Fish 180 mcg-35 mg- 25 mg-5 mg tablet,chewable Active {tbl} PO DAILY July 22, 2024 11:00pm Complies with drug therapy Start: 07-23-2024 Start: 07-23-2024 Mv-Mn 110-Fa-O r2-Kfj-Jip-Fish 180 mcg-35 mg- 25 mg-5 mg tablet,chewable Active {tbl} PO DAILY July 23, 2024 12:00am Complies with drug therapy Start: 07-23-2024 Mv-Mn 110-Fa-O r1-Xhn-Lbt-Fish 180 mcg-35 mg- 25 mg-5 mg tablet,chewable Active {tbl} PO DAILY July 23, 2024 12:00am Pnv No.002-Vu-Bs1-Xvv-Foj-Hqnw 180 mcg-35 mg- 25 mg-5 mg tablet,chewable (2 sources) Start: 07-23-2024 Pnv No.253-Lx-Iv9-Uwt-Ixf-Hagf 180 mcg-35 mg- 25 mg-5 mg tablet,chewable Active {tbl} PO DAILY July 23, 2024 12:00am valACYclovir 500 mg oral tablet (20 sources) Herpesvirus Nucleoside Analog DNA Polymerase Inhibitor, Herpes Simplex Virus Nucleoside Analog DNA Polymerase Inhibitor, Herpes Zoster Virus Nucleoside Analog DNA Polymerase Inhibitor Start: 01-18-2025 take 1 tablet by mouth once daily Valacyclovir 500 mg tablet Active 500 mg PO daily 11 07January 17, 2025 11:00pm Complies with drug therapy Start: 09-15-2020 End: 10-28-2024 Valacyclovir (Valtrex) 500 m g tablet Discontinued 500 mg PO TWICE A DAY as needed for Check with primary doctor July 23, 2024 1:50pm October 28, 2024 12:41pm Take twice a day for 3 days then decrease to daily dosing for suppressive therapy Start: 07-17-2018 End: 03-14-2020 take 1 tablet by mouth once daily Valacyclovir 1,000 MG tablet Discontinued 1000 mg PO DAILY July 16, 2018 11:00pm March 14, 2020 1:36pm hsv Completed/Discontinued Medications Medication Drug Class(es) Dates Sig (Normalized) Sig (Original) amoxicillin 500 mg oral capsule (20 sources) Penicillin-class Antibacterial Start: 5 End: 5 take 1 capsule by mouth every eight hours Amoxicillin 500 mg capsule Discontinued 500 mg PO Q8H 21 7 0 August 01, 2024 11:00pm August 07, 2024 11:00pm August 08, 2024 11:08pm Urinary tract infection in mother during Unspecified infection of urinary tract in , unspecified trimester busPIRone hydrochloride 7.5 mg oral tablet (20 sources) Start: End: 5 take 1 tablet by mouth three times daily as needed for anxiety Buspirone 7.5 mg tablet Discontinued 7.5 mg PO THREE TIMES A DAY as needed for anxiety 90 April 04, 2021 12:00am July 23, 2024 1:48pm DULoxetine 30 mg delayed release oral capsule (20 sources) Serotonin and Norepinephrine Reuptake Inhibitor Start: 5 End: 5 take 1 capsule by mouth once daily Duloxetine (Cymbalta) 30 mg capsule,delayed release(DR/EC) Discontinued 30 mg PO daily July 22, 2024 11:00pm July 28, 2024 9:46am anxiety fosfomycin 3000 mg powder for oral solution (20 sources) Start: 5 End: 5 take 3 g by mouth once Fosfomycin Tromethamine 3 gram packet Discontinued 3 g PO ONCE 1 August 12, 2024 11:00pm September 27, 2024 9:34am ibuprofen 800 mg oral tablet (20 sources) Nonsteroidal Anti-inflammatory Drug Start: End: take 1 tablet by mouth every eight hours as needed for pain Ibuprofen 800 mg tablet Discontinued 800 mg PO Q8H as needed for pain 30 October 24, 2020 11:00pm December 04, 2020 9:08am methylPREDNISolone 4 mg oral tablet (20 sources) Corticosteroid Start: End: 1 take 1 tablet by mouth once Methylprednisolone (Medrol (Tolu)) 4 mg tablets,dose pack Discontinued 0 PO per package directions September 04, 2020 11:00pm September 18, 2020 12:44pm PO PER PKG DIR ondansetron 4 mg disintegrating oral tablet (20 sources) Serotonin-3 Receptor Antagonist Start: End: 1 take 1 tablet by mouth every eight hours as needed for nausea and vomiting Ondansetron 4 mg tablet,disintegrating Discontinued 4 mg PO Q8H as needed for nausea and vomiting 30 April 18, 2020 12:00am December 04, 2020 9:08am Vit 96-Iron Fum-Folic 1 EACH tablet (11 sources) Start: 8 End: 5 take 1 tablet by mouth once daily Vit 96-Iron Fum-Folic 1 EACH tablet Discontinued 1 NMA PO DAILY January 14, 2018 11:00pm July 23, 2024 1:48pm Start: 01-15-2018 End: 07-23-2024 take 1 tablet by mouth once daily Vit 96-Iron Fum-Folic 1 EACH tablet Discontinued 1 NMA PO DAILY January 15, 2018 12:00am July 23, 2024 2:48pm Jlpf35-Imin Fum-Folic 1 EACH tablet (10 sources) Start: 01-15-2018 End: 07-23-2024 take 1 tablet by mouth once daily Usch25-Xbyl Fum-Folic 1 EACH tablet Discontinued 1 NMA PO DAILY January 15, 2018 12:00am July 23, 2024 2:48pm Start: 01-15-2018 End: 07-23-2024 take 1 tablet by mouth once daily Eoqz40-Bdnz Fum-Folic 1 EACH tablet Discontinued 1 NMA PO DAILY January 15, 2018 12:00am July 23, 2024 2:48pm sertraline 100 mg oral tablet (20 sources) Serotonin Reuptake Inhibitor Start: 12-28-2024 End: 01-11-2025 take 1 tablet by mouth once daily Sertraline 100 mg tablet Discontinued 100 mg PO daily 11 10December 27, 2024 11:00pm January 11, 2025 10:15am Start: 07-28-2024 End: 12-28-2024 take 1 tablet by mouth once daily Sertraline (Zoloft) 50 mg tablet Discontinued 50 mg PO daily 12 04July 27, 2024 11:00pm December 28, 2024 2:29pm Problems Active Problems Problem Classification Problem Date Documented Date Episodic/Chronic Anxiety disorders (20 sources) Anxiety; Translations: [Anxiety disorder, unspecified] Onset: 02-08-2025 07-28-2024 Chronic Comment on above: cymbalta, wean off a nd recommend in counseling doing well on zoloft zoloft stopped. Cont inue counseling 3 X a week. "feels much better off med" Diabetes or abnormal glucose tolerance complicating ; childbirth; or the puerperium (20 sources) Abnormal glucose level; Translations: [Abnormal glucose complicating ] Onset: 02-08-2025 10-24-2020 Episodic Comment on above: 3 hr. GTT normal Following with Dr. Belen tomas Growths ordered. Discussed testing if needs medication. Delivery 39-40w pending glycemic control. nl growth 09/05, 10/06 nl growth GDMA2 on metformin; Dr Hall manages. Growth US 32 and 36 wk. Twice wkly NST at 32 wk. Del at 39 wk Immunizations and screening for infectious disease (1 source) Encounter for immunization; Translations: [Encounter for immunization] Onset: 01-30-2025 Episodic Other complications of (20 sources) Maternal obesity complicating , childbirth and the puerperium, antepartum; Translations: [Obesity complicating , unspecified trimester] 07-28-2024 Chronic Comment on above: HGBA1C, BMI 33 Other complications of (2 sources) Obesity complicating , second trimester; Translations: [Obesity complicating , second trimester] Onset: 02-08-2025 Chronic Other complications of (1 source) Obesity complicating , unspecified trimester; Translations: [Obesity complicating , unspecified trimester] Onset: 10-12-2024 Chronic Other complications of (20 sources) Multigravida of advanced maternal age; Translations: [Supervision of elderly multigravida, unspecified trimester] 07-28-2024 Episodic Comment on above: discussed genetic te sting. Patient declines. Other complications of (20 sources) High risk ; Translations: [Supervision of high risk , unspecified, unspecified trimester] 07-23-2024 Episodic Comment on above: , ISIDRA 03/04/25, [place], [place]ks[place], Farzad PRR ISIDRA 10/27/20 boy [place] PC: [place] Spouse: Farzad PRR , ISIDRA , [place], [place]ks[place], Farzad PRR , ISIDRA , boy [facility] [place], Aleksander, Farzad Other complications of (20 sources) Venereal disease in mother complicating , childbirth AND/OR puerperium; Translations: [Other infections with a predominantly sexual mode of transmission complicating , unspecified trimester] 07-28-2024 Episodic Comment on above: valtrex at 34-36 wee ks Other complications of (20 sources) Urinary tract infection in ; Translations: [Unspecified infection of urinary tract in , unspecified trimester] 08-02-2024 Episodic Other complications of (20 sources) History of gestational diabetes mellitus; Translations: [Supervision of with other poor reproductive or obstetric history, unspecified trimester] 07-23-2024 Episodic Other complications of (20 sources) Abnormal glucose tolerance in mother complicating , childbirth AND/OR puerperium; Translations: [Other specified related conditions, unspecified trimester] 08-30-2024 Episodic Comment on above: on metformin on metformin; Dr Duke erazo manages. Growth US 32 and 36 wk. on metformin; Dr Duke erazo manages. Growth US 32 and 36 wk. Twice wkly NST at 32 wk. Del at 39 wk Other complications of (20 sources) Fundal height high for dates; Translations: [Uterine size-date discrepancy, unspecified trimester] 12-22-2024 Episodic Comment on above: growth US ordered growth US ordered:32 wk:EFW 68%, AC 98%. 36 w scheduled Other complications of (20 sources) Genital herpes simplex in mother complicating ; Translations: [Other infections with a predominantly sexual mode of transmission complicating , unspecified trimester] 07-28-2024 Episodic Comment on above: valtrex at 34-36 wee ks Other complications of (2 sources) Supervision of high risk , unspecified, third trimester; Translations: [Supervision of high risk , unspecified, third trimester] Onset: 02-08-2025 Episodic Other complications of (2 sources) Supervision of with other poor reproductive or obstetric history, unspecified trimester; Translations: [Supervision of with other poor reproductive or obstetric history, unspecified trimester] Onset: 02-08-2025 Episodic Other complications of (2 sources) Other infections with a predominantly sexual mode of transmission complicating , third trimester; Translations: [Other infections with a predominantly sexual mode of transmission complicating , third trimester] Onset: 02-08-2025 Episodic Other complications of (2 sources) Supervision of elderly multigravida, third trimester; Translations: [Supervision of elderly multigravida, third trimester] Onset: 02-08-2025 Episodic Other complications of (2 sources) Unspecified infection of urinary tract in , second trimester; Translations: [Unspecified infection of urinary tract in , second trimester] Onset: 02-08-2025 Episodic Other complications of (2 sources) Uterine size-date discrepancy, unspecified trimester; Translations: [Uterine size-date discrepancy, unspecified trimester] Onset: 02-08-2025 Episodic Other complications of (2 sources) Other specified related conditions, unspecified trimester; Translations: [Other specified related conditions, unspecified trimester] Onset: 02-07-2025 Episodic Other complications of (1 source) Maternal care for abnormalities of the heart rate or rhythm, third trimester, not applicable or unspecified; Translations: [Maternal care for abnormalities of the heart rate or rhythm, third trimester, not applicable or unspecified] Onset: 02-08-2025 Episodic Other complications of (1 source) Supervision of high risk , unspecified, second trimester; Translations: [Supervision of high risk , unspecified, second trimester] Onset: 12-22-2024 Episodic Residual codes; unclassified (1 source) 38 weeks gestation of ; Translations: [38 weeks gestation of ] Onset: 02-21-2025 Episodic Residual codes; unclassified (1 source) 37 weeks gestation of ; Translations: [37 weeks gestation of ] Onset: 02-17-2025 Episodic Residual codes; unclassified (1 source) 35 weeks gestation of ; Translations: [35 weeks gestation of ] Onset: 02-03-2025 Episodic Residual codes; unclassified (2 sources) 34 weeks gestation of ; Translations: [34 weeks gestation of ] Onset: 01-24-2025 Episodic Residual codes; unclassified (1 source) 33 weeks gestation of ; Translations: [33 weeks gestation of ] Onset: 01-30-2025 Episodic Residual codes; unclassified (1 source) 30 weeks gestation of ; Translations: [30 weeks gestation of ] Onset: 01-10-2025 Episodic Residual codes; unclassified (1 source) 29 weeks gestation of ; Translations: [29 weeks gestation of ] Onset: 12-22-2024 Episodic Unclassified (2 sources) Insulin resistance, unspecified; Translations: [Insulin resistance, unspecified] Onset: 02-07-2025 Varicose veins of lower extremity (20 sources) Varicose veins of lower extremity; Translations: [Asymptomatic varicose veins of bilateral lower extremities] 07-23-2024 Episodic Viral infection (2 sources) Herpesviral infection of other urogenital tract; Translations: [Herpesviral infection of other urogenital tract] Onset: 02-08-2025 Chronic Past or Other Problems Problem Classification Problem Date Documented Date Episodic/Chronic Genitourinary symptoms and ill-defined conditions (1 source) Dysuria; Translations: [Dysuria] Onset: 09-27-2024 Episodic Other complications of (1 source) Unspecified infection of urinary tract in , unspecified trimester; Translations: [Unspecified infection of urinary tract in , unspecified trimester] Onset: 10-07-2024 Episodic Other complications of (1 source) Supervision of high risk , unspecified, unspecified trimester; Translations: [Supervision of high risk , unspecified, unspecified trimester] Onset: 10-07-2024 Episodic Other female genital disorders (1 source) Other specified noninflammatory disorders of vagina; Translations: [Other specified noninflammatory disorders of vagina] Onset: 10-07-2024 Episodic Other female genital disorders (1 source) Other specified conditions associated with female genital organs and menstrual cycle; Translations: [Other specified conditions associated with female genital organs and menstrual cycle] Onset: 08-13-2024 Episodic Other and delivery including normal (20 sources) ; Translations: [Encounter for supervision of normal , unspecified, unspecified trimester] Onset: 07-28-2024 07-23-2024 Episodic Comment on above: declined NIPT & Castro ier testing declines genetic and carrier testing. anatomy nl declined NIPT & Castro ier testing, nl 3 HR GTT declined NIPT & Castro ier testing, nl 3 HR GTT, nl anatomy GBS neg, declined NI PT & Carrier testing, nl 3 HR GTT, nl anatomy Residual codes; unclassified (1 source) 21 weeks gestation of ; Translations: [21 weeks gestation of ] Onset: 11-11-2024 Episodic Residual codes; unclassified (1 source) 13 weeks gestation of ; Translations: [13 weeks gestation of ] Onset: 10-07-2024 Episodic Results Test Name Value Interpretation Reference Range Facility Clinical Therapist Office Visit Reporton 02-21-2025 Clinical Therapist Office Visit Report [facility] [address], [address] [place] [address] OFFICE VISIT Date of Service: 02/21/25 MR#: [id number] Acct: [id number] Name: BRITTANY ROCA Rep #: [id number] : 1985 Provider: Dr. Holly sweeney MD Age/Sex: 39/F Location[place] [facility] [place]: Signed Intake Vital Signs 01/06/25 08:44 02/17/25 13:49 02/21/25 14:29 Height 5 ft 10 in 5 ft 9 in 5 ft 9 in Weight: 253 lb 6 oz 253 lb 9 oz BMI 37.4 37.4 BP 113/68 134/86 H Intake Visit Reasons: 39wk ob/nst Drying Oven Tender Required: No Is patient in pain?: No Allergies avocado ([place]) Allergy (Intermediate, Verified 02/21/25 14:30) Swelling of tongue Medications ???Medication ???Instructions ???Recorded ???Confirmed ???Type mv-mn 110-FA 180 mcg-om3 35 mg-dha tab PO DAILY 07/23/24 02/21/25 H istory 25 mg-epa 5 mg-fish oil chew tablet flash glucose scanning reader #1 ea 08/31/24 02/21/25 Rx (FreeStyle Todd 2 [place]) flash glucose sensor (FreeStyle #1 ea 08/31/24 02/21/25 Rx Todd 2 Sensor kit) valacyclovir 500 mg tablet 500 mg PO QDAY #30 tabs 01/18/25 1 04/23/24 Rx metformin 500 mg tablet 1,000 mg (2 x 500 mg) PO BIDWMEAL 02/02/25 02/21/25 Rx #360 tabs Last Menstrual Period: 05/28/24 Zika: Zika virus screening: Negative : No PFSH PFSH Medical History Varicose veins of both lower extremities Seasonal allergies Normal vaginal delivery Superficial varicosities Depression Gestational diabetes PCOS (polycystic ovarian syndrome) Genital herpes affecting Surgical History History of tonsillectomy Family History Aunt Breast cancer, Onset Age: 40 Maternal- unknown if genetic testing was done. 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 occupational exposures/hazards: No pets and animals: Yes pets and animals: dog(s) history of recent travel: Yes (- June) out of state: Yes out of country: No sexually active: Yes Smoking Status: Never smoker second hand exposure: No alcohol intake: current alcohol intake frequency: holidays/special occasions only details: not while substance use type: does not use well-balanced diet: daily or most days caffeine: No eating out: 1-3 times/week during the past year weight has: increased > 10 lbs what type of physical activity do you participate in: other details: crossfit frequency: 1-2 times per week duration: 45-60 minutes/day amanda/latter-day: Scientologist seatbelt use: always do you feel safe at home: Yes additional social history: - Farzad History 3 Elective abortions Hx Para 2 Spontaneous abortions Hx # Term Pregnancies Ectopic pregnancies Hx # Pregnancies Multiple births # of living children 2 Past Pregnancies Del. Date Name GA/Weeks Outcome Route Bth Weight Infant Gen Labor Lgth Anesthesia Del Locatn Provider FOB 08/26/18 Jennifer 40 live - full term 9lbs Female 16 hours none [facility] Radha Panda 10/24/20 Aleksander 39 live - full term 8#10oz Male epidural [facility] Dr Aroldo Panda Delivery Date: 08/26/18 Last Updated by: Pauline Tay 3rd degree laceration; NICU for possible NEC- she did not have HPI 39wk ob/nst Details: BRITTANY ROCA is a 39 year old who presents for routine OB visit. OB Visit ISIDRA Calculator Estimated Delivery Date Method Current WG Current Estimate 03/04/25 LMP (Certain) 38w 3d Other Estimates 03/10/25 Ultrasound #1 37w 4d 03/04/25 Ultrasound #2 38w 3d Expected Delivery Route/Plan Labor Preferences- CB/BF classes: [] labor support person: [] labor intervention preferences: pain management options preferred: Epidural cut cord/dad catch: [] : [] PP control planned: [] discussed possible routes of delivery and associated risks: [] special requests: [] Specific Issue/Plans Covid status: [] Flu vaccine: given Tdap vaccine: given Rhogam: na LARC form signed: declined movement and labor precautions reviewed. Problem list reviewed and updated with the most current plan of care details and appropriate orders placed. Relevant counseling for the gestational age provided. Continue routine care and follow up unless otherwise noted in visit notes/problem list details Initial Weight: Not Recor (more content not included)... Normal [facility] - Chemistry and C hemistry - challengeOrdered By: Alycia Torres on 02-17-2025 Glucose Ql (U) Negative [facility] - UrinalysisOrder ed By: Alycia Torres on 02-17-2025 Protein Ql (U) Negative [facility] Clinical Therapist Office Visit Reporton 02-17-2025 Clinical Therapist Office Visit Report [facility] [address], [address] [place] [address] OFFICE VISIT Date of Service: 02/17/25 MR#: [id number] Acct: [id number] Name: BRITTANY ROCA Rep #: [id number] : 1985 Provider: RALPH Meier ams Age/Sex: 39/F Location: [facility] Status: Signed Intake Vital Signs 01/06/25 08:44 02/10/25 13:41 02/14/25 08:46 02/17/25 13:49 Height 5 ft 10 in 5 ft 9 in 5 ft 9 in 5 ft 9 in Weight: 253 lb 6 oz BMI 37.4 BP 113/68 Intake Visit Reasons: 38wk NST ONLY Drying Oven Tender Required: No Is patient in pain?: No Allergies avocado (avacado) Allergy (Intermediate, Verified 02/17/25 13:52) Swelling of tongue Medications ???Medication ???Instructions ???Recorded ???Confirmed ???Type mv-mn 110-FA 180 mcg-om3 35 mg-dha tab PO DAILY 07/23/24 02/17/25 H istory 25 mg-epa 5 mg-fish oil chew tablet flash glucose scanning reader #1 ea 08/31/24 02/17/25 Rx (FreeStyle Todd 2 [place]) flash glucose sensor (FreeStyle #1 ea 08/31/24 02/17/25 Rx Todd 2 Sensor kit) valacyclovir 500 mg tablet 500 mg PO QDAY #30 tabs 01/18/25 1 04/19/24 Rx metformin 500 mg tablet 1,000 mg (2 x 500 mg) PO BIDWMEAL 02/02/25 02/17/25 Rx #360 tabs Last Menstrual Period: 05/28/24 Zika: Zika virus screening: Negative : No PFSH PFSH Medical History Varicose veins of both lower extremities Seasonal allergies Normal vaginal delivery Superficial varicosities Depression Gestational diabetes PCOS (polycystic ovarian syndrome) Genital herpes affecting Surgical History History of tonsillectomy Family History Aunt Breast cancer, Onset Age: 40 Maternal- unknown if genetic testing was done. 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 occupational exposures/hazards: No pets and animals: Yes pets and animals: dog(s) history of recent travel: Yes (- June) out of state: Yes out of country: No sexually active: Yes Smoking Status: Never smoker second hand exposure: No alcohol intake: current alcohol intake frequency: holidays/special occasions only details: not while substance use type: does not use well-balanced diet: daily or most days caffeine: No eating out: 1-3 times/week during the past year weight has: increased > 10 lbs what type of physical activity do you participate in: other details: crossfit frequency: 1-2 times per week duration: 45-60 minutes/day amanda/latter-day: Scientologist seatbelt use: always do you feel safe at home: Yes additional social history: - Farzad History 3 Elective abortions Hx Para 2 Spontaneous abortions Hx # Term Pregnancies Ectopic pregnancies Hx # Pregnancies Multiple births # of living children 2 Past Pregnancies Del. Date Name GA/Weeks Outcome Route Bth Weight Gen Labor Lgth Anesthesia Del Locatn Provider FOB 08/26/18 Jennifer 40 live - full term 9lbs Female 16 hours none [facility] Radha Panda 10/24/20 Aleksander 39 live - full term 8#10oz Male epidural [facility] Dr Aroldo Panda Delivery Date: 08/26/18 Last Updated by: Pauline Tay 3rd degree laceration; NICU for possible NEC- she did not have HPI 38wk NST ONLY Details: BRITTANY ROCA is a 39 year old who presents for routine OB visit. OB Visit ISIDRA Calculator Estimated Delivery Date Method Current WG Current Estimate 03/04/25 LMP (Certain) 37w 6d Other Estimates 03/10/25 Ultrasound #1 37w 0d 03/04/25 Ultrasound #2 37w 6d Expected Delivery Route/Plan Labor Preferences- CB/BF classes: [] labor support person: [] labor intervention preferences: pain management options preferred: Epidural cut cord/dad catch: [] : [] PP control planned: [] discussed possible routes of delivery and associated risks: [] special requests: [] Specific Issue/Plans Covid status: [] Flu vaccine: given Tdap vaccine: given Rhogam: na LARC form signed: declined movement and labor precautions reviewed. Problem list reviewed and updated with the most current plan of care details and appropriate orders placed. Relevant counseling for the gestational age provided. Continue routine care and follow up unless otherwise noted in visit notes/problem list details Initial Weight: (more content not included)... Normal [facility] - Chemistry and C hemistry - challengeOrdered By: Sarah Sharma on 02-14-2025 Glucose Ql (U) Negative [facility] - UrinalysisOrder ed By: Sarah Sharma on 02-14-2025 Protein Ql (U) Negative [facility] Clinical Therapist Office Visit Reporton 02-14-2025 Clinical Therapist Office Visit Report [facility] [address], [address] [place] [address] OFFICE VISIT Date of Service: 02/14/25 MR#: [id number] Acct: [id number] Name: BRITTANY ROCA Rep #: [id number] : 1985 Provider: Dr. Sarah Ortiz DO Age/Sex: 39/F [place] [facility] [place]: Signed Intake Vital Signs 01/06/25 08:44 02/07/25 08:26 02/10/25 13:41 02/14/25 08:46 Height 5 ft 10 in 5 ft 9 in 5 ft 9 in 5 ft 9 in Weight: 251 lb 3 oz BMI 37.0 BP 121/76 H Intake Visit Reasons: 38wk ob/nst Chief Complaint: 38wk OB/NST Drying Oven Tender Required: No Is patient in pain?: No Allergies avocado (avacado) Allergy (Intermediate, Verified 02/14/25 08:45) Swelling of tongue Medications ???Medication ???Instructions ???Recorded ???Confirmed ???Type mv-mn 110-FA 180 mcg-om3 35 mg-dha tab PO DAILY 07/23/24 02/14/25 H istory 25 mg-epa 5 mg-fish oil chew tablet flash glucose scanning reader #1 ea 08/31/24 02/14/25 Rx (FreeStyle Todd 2 [place]) flash glucose sensor (FreeStyle #1 ea 08/31/24 02/14/25 Rx Todd 2 Sensor kit) valacyclovir 500 mg tablet 500 mg PO QDAY #30 tabs 01/18/25 1 04/16/24 Rx metformin 500 mg tablet 1,000 mg (2 x 500 mg) PO BIDWMEAL 02/02/25 02/14/25 Rx #360 tabs Last Menstrual Period: 05/28/24 : No Have you fallen in the past year?: No PFSH PFSH Medical History Varicose veins of both lower extremities Seasonal allergies Normal vaginal delivery Superficial varicosities Depression Gestational diabetes PCOS (polycystic ovarian syndrome) Genital herpes affecting Surgical History History of tonsillectomy Family History Aunt Breast cancer, Onset Age: 40 Maternal- unknown if genetic testing was done. 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 occupational exposures/hazards: No pets and animals: Yes pets and animals: dog(s) history of recent travel: Yes (- June) out of state: Yes out of country: No sexually active: Yes Smoking Status: Never smoker second hand exposure: No alcohol intake: current alcohol intake frequency: holidays/special occasions only details: not while substance use type: does not use well-balanced diet: daily or most days caffeine: No eating out: 1-3 times/week during the past year weight has: increased > 10 lbs what type of physical activity do you participate in: other details: crossfit frequency: 1-2 times per week duration: 45-60 minutes/day amanda/latter-day: Scientologist seatbelt use: always do you feel safe at home: Yes additional social history: - Farzad History 3 Elective abortions Hx Para 2 Spontaneous abortions Hx # Term Pregnancies Ectopic pregnancies Hx # Pregnancies Multiple births # of living children 2 Past Pregnancies Del. Date Name GA/Weeks Outcome Route Bth Weight Infant Gen Labor Lgth Anesthesia Del Locatn Provider FOB 08/26/18 Jennifer 40 live - full term 9lbs Female 16 hours none [facility] Radha Panda 10/24/20 Aleksander 39 live - full term 8#10oz Male epidural [facility] Dr Aroldo Panda Delivery Date: 08/26/18 Last Updated by: Pauline Tay 3rd degree laceration; NICU for possible NEC- she did not have HPI 38wk ob/nst Details: BRITTANY ROCA is a 39 year old who presents for routine OB visit. OB Visit ISIDRA Calculator Estimated Delivery Date Method Current WG Current Estimate 03/04/25 LMP (Certain) 37w 3d Other Estimates 03/10/25 Ultrasound #1 36w 4d 03/04/25 Ultrasound #2 37w 3d Expected Delivery Route/Plan Labor Preferences- CB/BF classes: [] labor support person: [] labor intervention preferences: pain management options preferred: Epidural cut cord/dad catch: [] : [] PP control planned: [] discussed possible routes of delivery and associated risks: [] special requests: [] Specific Issue/Plans Covid status: [] Flu vaccine: given Tdap vaccine: given Rhogam: na LARC form signed: declined movement and labor precautions reviewed. Problem list reviewed and updated with the most current plan of care details and appropriate orders placed. Relevant counseling for the gestational age provided. Continue routine care and follow up unless otherwise noted in visit notes/problem list details (more content not included)... Normal [facility] - Chemistry and C hemistry - challengeOrdered By: Alycia Torres on 02-10-2025 Glucose Ql (U) Negative [facility] - UrinalysisOrder ed By: Alycia Torres on 02-10-2025 Protein Ql (U) Negative [facility] Clinical Therapist Office Visit Reporton 02-10-2025 Clinical Therapist Office Visit Report [facility] [address], [address] [place] [address] OFFICE VISIT Date of Service: 02/10/25 MR#: [id number] Acct: [id number] Name: BRITTANY ROCA Rep #: [id number] : 1985 Provider: RALPH Meier ams Age/Sex: 39/F Location[place] [facility] [place] Status: Signed Intake Vital Signs 01/06/25 08:44 02/07/25 08:26 02/10/25 13:40 02/10/25 13:41 Height 5 ft 10 in 5 ft 9 in 5 ft 9 in 5 ft 9 in Weight: 253 lb BMI 37.3 BP 128/84 H Intake Visit Reasons: 37wk NST ONLY Drying Oven Tender Required: No Is patient in pain?: No Allergies avocado (avacado) Allergy (Intermediate, Verified 02/10/25 13:40) Swelling of tongue Medications ???Medication ???Instructions ???Recorded ???Confirmed ???Type mv-mn 110-FA 180 mcg-om3 35 mg-dha tab PO DAILY 07/23/24 02/10/25 H istory 25 mg-epa 5 mg-fish oil chew tablet flash glucose scanning reader #1 ea 08/31/24 02/10/25 Rx (FreeStyle Todd 2 [place]) flash glucose sensor (FreeStyle #1 ea 08/31/24 02/10/25 Rx Todd 2 Sensor kit) valacyclovir 500 mg tablet 500 mg PO QDAY #30 tabs 01/18/25 1 Rx metformin 500 mg tablet 1,000 mg (2 x 500 mg) PO BIDWMEAL 02/02/25 02/10/25 Rx #360 tabs Last Menstrual Period: 05/28/24 Zika: Zika virus screening: Negative : No PFSH PFSH Medical History Varicose veins of both lower extremities Seasonal allergies Normal vaginal delivery Superficial varicosities Depression Gestational diabetes PCOS (polycystic ovarian syndrome) Genital herpes affecting Surgical History History of tonsillectomy Family History Aunt Breast cancer, Onset Age: 40 Maternal- unknown if genetic testing was done. 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 occupational exposures/hazards: No pets and animals: Yes pets and animals: dog(s) history of recent travel: Yes (- June) out of state: Yes out of country: No sexually active: Yes Smoking Status: Never smoker second hand exposure: No alcohol intake: current alcohol intake frequency: holidays/special occasions only details: not while substance use type: does not use well-balanced diet: daily or most days caffeine: No eating out: 1-3 times/week during the past year weight has: increased > 10 lbs what type of physical activity do you participate in: other details: crossfit frequency: 1-2 times per week duration: 45-60 minutes/day amanda/latter-day: Scientologist seatbelt use: always do you feel safe at home: Yes additional social history: - Farzad History 3 Elective abortions Hx Para 2 Spontaneous abortions Hx # Term Pregnancies Ectopic pregnancies Hx # Pregnancies Multiple births # of living children 2 Past Pregnancies Del. Date Name GA/Weeks Outcome Route Bth Weight Infant Gen Labor Lgth Anesthesia Del Locatn Provider FOB 08/26/18 Jennifer 40 live - full term 9lbs Female 16 hours none [facility] Radha Panda 10/24/20 Aleksander 39 live - full term 8#10oz Male epidural [facility] Dr Aroldo Panda Delivery Date: 08/26/18 Last Updated by: Pauline Tay 3rd degree laceration; NICU for possible NEC- she did not have HPI 37wk NST ONLY Details: BRITTANY ROCA is a 39 year old who presents for routine OB visit. OB Visit ISIDRA Calculator Estimated Delivery Date Method Current WG Current Estimate 03/04/25 LMP (Certain) 36w 6d Other Estimates 03/10/25 Ultrasound #1 36w 0d 03/04/25 Ultrasound #2 36w 6d Expected Delivery Route/Plan Labor Preferences- CB/BF classes: [] labor support person: [] labor intervention preferences: pain management options preferred: Epidural cut cord/dad catch: [] : [] PP control planned: [] discussed possible routes of delivery and associated risks: [] special requests: [] Specific Issue/Plans Covid status: [] Flu vaccine: given Tdap vaccine: given Rhogam: na LARC form signed: declined movement and labor precautions reviewed. Problem list reviewed and updated with the most current plan of care details and appropriate orders placed. Relevant counseling for the gestational age provided. Continue routine care and follow up unless otherwise noted in visit notes/problem list details Initial Weight: Not Rec (more content not included)... Normal [facility] Rule out Beta Strep (Grp. B) on 02-10-2025 DEMETRA Group B Beta Streptococcus is not isolated. Normal [facility] Comment on above: Performed By: #### M [id number] ####[facility] [id number] [place], [place], [id number] Screening beta-hemolytic Str eptococcus cultureOrdered By: Holly Spear on 10-28-2025 Beta-hemolytic Streptococcus culture Group B Beta Streptococcus is not isolated. [facility] - Chemistry and C hemistry - challengeOrdered By: Holly Spear on 02-07-2025 Glucose Ql (U) Negative [facility] - UrinalysisOrder ed By: Holly Brasherbridgetmeredith on 02-07-2025 Protein Ql (U) Negative [facility] Clinical Therapist Office Visit Reporton 02-07-2025 Clinical Therapist Office Visit Report [facility], [address] [place] [address] OFFICE VISIT Date of Service: 02/07/25 MR#: [id number] Acct: [id number] Name: BRITTANY ROCA Rep #: [id number] : 1985 Provider: Dr. Holly sweeney MD Age/Sex: 39/F Location: [facility] Status: Signed Intake Vital Signs 01/06/25 08:44 01/31/25 08:41 02/03/25 13:38 02/07/25 08:26 Height 5 ft 10 in 5 ft 9 in 5 ft 9 in 5 ft 9 in Weight: 252 lb 4 oz 249 lb 6 oz 251 lb 3 oz BMI 37.2 36.8 37.0 BP 103/72 114/74 122/73 H Intake Visit Reasons: 37wk ob/nst Drying Oven Tender Required: No Is patient in pain?: No Allergies avocado (avacado) Allergy (Intermediate, Verified 02/07/25 08:27) Swelling of tongue Medications ???Medication ???Instructions ???Recorded ???Confirmed ???Type mv-mn 110-FA 180 mcg-om3 35 mg-dha tab PO DAILY 07/23/24 02/07/25 H istory 25 mg-epa 5 mg-fish oil chew tablet flash glucose scanning reader #1 ea 08/31/24 02/07/25 Rx (FreeStyle Todd 2 [place]) flash glucose sensor (FreeStyle #1 ea 08/31/24 02/07/25 Rx Todd 2 Sensor kit) valacyclovir 500 mg tablet 500 mg PO QDAY #30 tabs 01/18/25 1 Rx metformin 500 mg tablet 1,000 mg (2 x 500 mg) PO BIDWMEAL 02/02/25 02/07/25 Rx #360 tabs Last Menstrual Period: 05/28/24 Zika: Zika virus screening: Negative : No PFSH PFSH Medical History (Updated 02/07/25 @ 08:[address] Holly Spear MD) Varicose veins of both lower extremities Seasonal allergies Normal vaginal delivery Superficial varicosities Depression Gestational diabetes PCOS (polycystic ovarian syndrome) Genital herpes affecting Surgical History History of tonsillectomy Family History Aunt Breast cancer, Onset Age: 40 Maternal- unknown if genetic testing was done. 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 occupational exposures/hazards: No pets and animals: Yes pets and animals: dog(s) history of recent travel: Yes (- June) out of state: Yes out of country: No sexually active: Yes Smoking Status: Never smoker second hand exposure: No alcohol intake: current alcohol intake frequency: holidays/special occasions only details: not while substance use type: does not use well-balanced diet: daily or most days caffeine: No eating out: 1-3 times/week during the past year weight has: increased > 10 lbs what type of physical activity do you participate in: other details: crossfit frequency: 1-2 times per week duration: 45-60 minutes/day amanda/latter-day: Scientologist seatbelt use: always do you feel safe at home: Yes additional social history: - Farzad History 3 Elective abortions Hx Para 2 Spontaneous abortions Hx # Term Pregnancies Ectopic pregnancies Hx # Pregnancies Multiple births # of living children 2 Past Pregnancies Del. Date Name GA/Weeks Outcome Route Bth Weight Infant Gen Labor Lgth Anesthesia Del Locatn Provider KARAN 08/26/18 Jennifer 40 live - full term 9lbs Female 16 hours none [facility] Radha Panda 10/24/20 Aleksander 39 live - full term 8#10oz Male epidural [facility] Dr Aroldo Panda Delivery Date: 08/26/18 Last Updated by: Pauline Tay 3rd degree laceration; NICU for possible NEC- she did not have HPI 37wk ob/nst Details: BRITTANY ROCA is a 39 year old who presents for routine OB visit. OB Visit ISIDRA Calculator Estimated Delivery Date Method Current WG Current Estimate 03/04/25 LMP (Certain) 36w 3d Other Estimates 03/10/25 Ultrasound #1 35w 4d 03/04/25 Ultrasound #2 36w 3d Expected Delivery Route/Plan Labor Preferences- CB/BF classes: [] labor support person: [] labor intervention preferences: pain management options preferred: Epidural cut cord/dad catch: [] : [] PP control planned: [] discussed possible routes of delivery and associated risks: [] special requests: [] Specific Issue/Plans Covid status: [] Flu vaccine: given Tdap vaccine: given Rhogam: na LARC form signed: declined movement and labor precautions reviewed. Problem list reviewed and updated with the most current plan of care details and appropriate orders placed. Relevant counseling for the gestational age provided. Continue routine care and follow up unless otherwise noted in visi (more content not included)... Normal [facility] - Chemistry and C hemistry - challengeOrdered By: Alycia Torres on 02-03-2025 Glucose Ql (U) Negative [facility] - UrinalysisOrder ed By: Alycia Torres on 02-03-2025 Protein Ql (U) Negative [facility] Clinical Therapist Office Visit Reporton 02-03-2025 Clinical Therapist Office Visit Report [facility] [address] [place] [address], [address] [place] [address] OFFICE VISIT Date of Service: 02/03/25 MR#: [id number] Acct: [id number] Name: BRITTANY ROCA Rep #: [id number] : 1985 Provider: RALPH Meier ams Age/Sex: 39/F Location: [facility] Status: Signed Intake Vital Signs 01/06/25 08:44 01/24/25 10:21 01/31/25 08:41 02/03/25 13:38 Height 5 ft 10 in 5 ft 10 in 5 ft 9 in 5 ft 9 in Weight: 249 lb 6 oz BMI 36.8 BP 114/74 Intake Visit Reasons: 36wk NST ONLY Drying Oven Tender Required: No Is patient in pain?: No Allergies avocado (avacado) Allergy (Intermediate, Verified 02/03/25 13:39) Swelling of tongue Medications ???Medication ???Instructions ???Recorded ???Confirmed ???Type mv-mn 110-FA 180 mcg-om3 35 mg-dha tab PO DAILY 07/23/24 02/03/25 H istory 25 mg-epa 5 mg-fish oil chew tablet flash glucose scanning reader #1 ea 08/31/24 02/03/25 Rx (FreeStyle Todd 2 [place]) flash glucose sensor (FreeStyle #1 ea 08/31/24 02/03/25 Rx Todd 2 Sensor kit) valacyclovir 500 mg tablet 500 mg PO QDAY #30 tabs 01/18/25 1 Rx metformin 500 mg tablet 1,000 mg (2 x 500 mg) PO BIDWMEAL 02/02/25 02/03/25 Rx #360 tabs Last Menstrual Period: 05/28/24 Zika: Zika virus screening: Negative : No Have you fallen in the past year?: No PFSH PFSH Medical History Varicose veins of both lower extremities Seasonal allergies Normal vaginal delivery Superficial varicosities Depression Gestational diabetes PCOS (polycystic ovarian syndrome) Genital herpes affecting Surgical History History of tonsillectomy Family History Aunt Breast cancer, Onset Age: 40 Maternal- unknown if genetic testing was done. 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 occupational exposures/hazards: No pets and animals: Yes pets and animals: dog(s) history of recent travel: Yes (- June) out of state: Yes out of country: No sexually active: Yes Smoking Status: Never smoker second hand exposure: No alcohol intake: current alcohol intake frequency: holidays/special occasions only details: not while substance use type: does not use well-balanced diet: daily or most days caffeine: No eating out: 1-3 times/week during the past year weight has: increased > 10 lbs what type of physical activity do you participate in: other details: crossfit frequency: 1-2 times per week duration: 45-60 minutes/day amanda/latter-day: Scientologist seatbelt use: always do you feel safe at home: Yes additional social history: - Farzad History 3 Elective abortions Hx Para 2 Spontaneous abortions Hx # Term Pregnancies Ectopic pregnancies Hx # Pregnancies Multiple births # of living children 2 Past Pregnancies Del. Date Name GA/Weeks Outcome Route Bth Weight Gen Labor Lgth Anesthesia Del Locatn Provider FOB 08/26/18 Jennifer 40 live - full term 9lbs Female 16 hours none [facility] Radha Panda 10/24/20 Aleksander 39 live - full term 8#10oz Male epidural [facility] Dr Aroldo Panda Delivery Date: 08/26/18 Last Updated by: Pauline Tay 3rd degree laceration; NICU for possible NEC- she did not have HPI 36wk NST ONLY Details: BRITTANY ROCA is a 39 year old who presents for routine OB visit. OB Visit ISIDRA Calculator Estimated Delivery Date Method Current WG Current Estimate 03/04/25 LMP (Certain) 35w 6d Other Estimates 03/10/25 Ultrasound #1 35w 0d 03/04/25 Ultrasound #2 35w 6d Initial Weight: Not Recorded Date -???-???-???-???-?? ?-???-???-???-???-? ??-???-???- EGA Weight BP Urine Prot -???-???-???-???-?? ?-???-???-???-???-? ??-???-???- Glucose FHR FuHt Pres Dilation -???-???-???-???-?? ?-???-???-???-???-? ??-???-???- Effaced St Visit Note 07/28/24 -???-???-???-???-?? ?-???-???-???-???-? ??-???-???- 8w 5d 233 lb 2 oz 129/79 -???-???-???-???-?? ?-???-???-???-???-? ??-???-???- 170 -???-???-???-???-?? ?-???-???-???-???-? ??-???-???- SM- CRL 1.4 not cons with LMP 08/13/24 -???-???-???-???-?? ?-???-???-???-???-? ??-???-???- 11w 0d Negative -???-???-???-???-?? ?-???-???-???-???-? ??-???-???- Negative -???-???-???-???-?? ?-???-???-???-???-? ??-???-???- nurse visit for UTI sx. culture sent and rx for atb sent due to sx. 08/30/24 -? (more content not included)... Normal [facility] - Chemistry and C hemistry - challengeOrdered By: Alycia Torres on 01-31-2025 Glucose Ql (U) Negative [facility] - UrinalysisOrder ed By: Alycia Torres on 01-31-2025 Protein Ql (U) Negative [facility] Clinical Therapist Office Visit Reporton 01-31-2025 Clinical Therapist Office Visit Report [facility] [address] [place] [address], [address] [place] [address] OFFICE VISIT Date of Service: 01/31/25 MR#: [id number] Acct: [id number] Name: BRITTANY ROCA Rep #: [id number] : 1985 Provider: RALPH Meier ams Age/Sex: 39/F [place] [facility] [place] Status: Signed Intake Vital Signs 01/06/25 08:44 01/17/25 09:59 01/27/25 15:11 01/31/25 08:41 Height 5 ft 10 in 5 ft 10 in 5 ft 9 in 5 ft 9 in Weight: 252 lb 4 oz BMI 37.2 BP 103/72 Intake Visit Reasons: 36wk ob/nst Chief Complaint: 36wk OB/NST Drying Oven Tender Required: No Is patient in pain?: No Allergies avocado (avacado) Allergy (Intermediate, Verified 01/31/25 08:38) Swelling of tongue Medications ???Medication ???Instructions ???Recorded ???Confirmed ???Type mv-mn 110-FA 180 mcg-om3 35 mg-dha tab PO DAILY 07/23/24 01/31/25 H istory 25 mg-epa 5 mg-fish oil chew tablet flash glucose scanning reader #1 ea 08/31/24 01/31/25 Rx (FreeStyle Todd 2 [place]) flash glucose sensor (FreeStyle #1 ea 08/31/24 01/31/25 Rx Todd 2 Sensor kit) metformin 500 mg tablet 500 mg PO .COMPLEX #60 tabs 01/31/25 Rx valacyclovir 500 mg tablet 500 mg PO QDAY #30 tabs 01/18/25 1 Rx Last Menstrual Period: 05/28/24 : No Have you fallen in the past year?: No PFSH PFSH Medical History Varicose veins of both lower extremities Seasonal allergies Normal vaginal delivery Superficial varicosities Depression Gestational diabetes PCOS (polycystic ovarian syndrome) Genital herpes affecting Surgical History History of tonsillectomy Family History Aunt Breast cancer, Onset Age: 40 Maternal- unknown if genetic testing was done. 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 occupational exposures/hazards: No pets and animals: Yes pets and animals: dog(s) history of recent travel: Yes (- June) out of state: Yes out of country: No sexually active: Yes Smoking Status: Never smoker second hand exposure: No alcohol intake: current alcohol intake frequency: holidays/special occasions only details: not while substance use type: does not use well-balanced diet: daily or most days caffeine: No eating out: 1-3 times/week during the past year weight has: increased > 10 lbs what type of physical activity do you participate in: other details: crossfit frequency: 1-2 times per week duration: 45-60 minutes/day amanda/latter-day: Scientologist seatbelt use: always do you feel safe at home: Yes additional social history: - Farzad History 3 Elective abortions Hx Para 2 Spontaneous abortions Hx # Term Pregnancies Ectopic pregnancies Hx # Pregnancies Multiple births # of living children 2 Past Pregnancies Del. Date Name GA/Weeks Outcome Route Bth Weight Infant Gen Labor Lgth Anesthesia Del Locatn Provider FOB 08/26/18 Jennifer 40 live - full term 9lbs Female 16 hours none [facility] Radha Panda 10/24/20 Aleksander 39 live - full term 8#10oz Male epidural [facility] Dr Aroldo Panda Delivery Date: 08/26/18 Last Updated by: Pauline Tay 3rd degree laceration; NICU for possible NEC- she did not have HPI 36wk ob/nst Details: BRITTANY ROCA is a 39 year old who presents for routine OB visit. OB Visit ISIDRA Calculator Estimated Delivery Date Method Current WG Current Estimate 03/04/25 LMP (Certain) 35w 3d Other Estimates 03/10/25 Ultrasound #1 34w 4d 03/04/25 Ultrasound #2 35w 3d Initial Weight: Not Recorded Date -???-???-???-???-?? ?-???-???-???-???-? ??-???-???- EGA Weight BP Urine Prot -???-???-???-???-?? ?-???-???-???-???-? ??-???-???- Glucose FHR FuHt Pres Dilation -???-???-???-???-?? ?-???-???-???-???-? ??-???-???- Effaced St Visit Note 07/28/24 -???-???-???-???-?? ?-???-???-???-???-? ??-???-???- 8w 5d 233 lb 2 oz 129/79 -???-???-???-???-?? ?-???-???-???-???-? ??-???-???- 170 -???-???-???-???-?? ?-???-???-???-???-? ??-???-???- SM- CRL 1.4 not cons with LMP 08/13/24 -???-???-???-???-?? ?-???-???-???-???-? ??-???-???- 11w 0d Negative -???-???-???-???-?? ?-???-???-???-???-? ??-???-???- Negative -???-???-???-???-?? ?-???-???-???-???-? ??-???-???- nurse visit for UTI sx. culture sent and rx for atb sent due to sx. 08/30/24 -???-???-???-???-?? ?-???-???-???-???- (more content not included)... Normal [facility] - Chemistry and C hemistry - challengeOrdered By: Alycia Torres on 01-27-2025 Glucose Ql (U) Negative [facility] - UrinalysisOrder ed By: Alycia Torres on 01-27-2025 Protein Ql (U) Negative [facility] OB Biophysical Prof W/O NSTo n 01-27-2025 OB Biophysical Prof W/O NST [facility] [address] [place] [address] OB Biophysical Prof W/O NST MR#: [id number] Acct: [id number] Name: BRITTANY ROCA Rep #: [id number] : 1985 F 39 From: Pee Ruvalcaba MD PCP: Dr. Karen Chacko MD Status: REG CLI Study: OB Biophysical Prof W/O NST Date of Exam: 01/12 10/06 Exam# [id number] Ordering Dr: Alycia Torres M PROCEDURE: OB BIOPHYSICAL PROF W/O NST 01/27/2025 REASON FOR EXAM: VARIABLE AND NO ACCEL'S TECHNIQUE: Procedure Code: USBIOWO Modality: US Procedure: OB BIOPHYSICAL PROF W/O NST FINDINGS FINDINGS: Single live intrauterine in cephalic presentation. heart rate measures 147 beats per minute. movement, tone, and breathing are observed and within normal limits. Amniotic fluid volume is normal with an ANDRZEJ of 9.5 cm and largest pocket measuring 3.8 cm. Placenta is anterior in location and not low-lying. Placenta demonstrates grade 2 maturation, appropriate for gestational age. sex is male. Estimated gestational age by last menstrual period is 34 weeks and 6 days. BIOPHYSICAL PROFILE: breathing movements: 2 Gross body movements: 2 tone: 2 Amniotic fluid volume: 2 Total score: 8 out of 8 US/OB Biophysical Prof W/O NST IMPRESSION: Normal biophysical profile (11/19). Normal amniotic fluid volume. Single live intrauterine in cephalic presentation. Anterior placenta, grade 2, not low-lying. Findings consistent with a reassuring status at approximately 34 weeks and 6 days gestation. Reading Location: [address] CC: RALPH Torres; Dr. Karen Chacko MD Paramedical Aide: Signed Normal [facility] OB Triage Physician Noteon 1 OB Triage Physician Note [facility] Medical Records Department [address] [place] [address] OB Triage Physician Note 01/27/25 1745 MR#: [id number] Acct: [id number] Name: BRITTANY ROCA Rep #: [id number] : 1985 39 From: Sarah Harris DO PCP: Dr. Karen Chacko MD Status:REG CLI Y Location: [place] [address]002-1 HPI - General HPI Narrative BRITTANY ROCA, is a 39 y/o @ 34 weeks 6 days who presents to L D for a bpp due to non-reactive nst in office. Bpp was found to be 8/8 and nst reactive without decelerations. Maternal Data Information ISIDRA Calculator Estimated Delivery Date Method Current WG Current Estimate 03/04/25 LMP (Certain) 34w 6d Other Estimates 03/10/25 Ultrasound #1 34w 0d 03/04/25 Ultrasound #2 34w 6d PFSH PFSH Medical History Varicose veins of both lower extremities Seasonal allergies Normal vaginal delivery Superficial varicosities Depression Gestational diabetes PCOS (polycystic ovarian syndrome) Genital herpes affecting Home Medications ???Medication ???Instructions ???Recorded ???Last Taken ???Type mv-mn 110-FA 180 mcg-om3 35 mg-dha tab PO DAILY 07/23/24 Unknown Hi story 25 mg-epa 5 mg-fish oil chew tablet flash glucose scanning reader #1 ea 08/31/24 Unknown Rx (FreeStyle Todd 2 [place]) flash glucose sensor (FreeStyle #1 ea 08/31/24 Unknown Rx Todd 2 Sensor kit) metformin 500 mg tablet 500 mg PO .COMPLEX #60 tabs Unknown Rx valacyclovir 500 mg tablet 500 mg PO QDAY #30 tabs 01/18/25 U nknown Rx Allergy/AdvReac Type Severity Reaction Status Date / Time avocado (avacado) Allergy Intermediate Swelling Verified 01/27/25 14:03 of tongue Family History Aunt Breast cancer, Onset Age: 40 Maternal- unknown if genetic testing was done. 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 current occupational exposures/hazards: No pets and animals: Yes pets and animals: dog(s) history of recent travel: Yes (- June) out of state: Yes out of country: No sexually active: Yes Smoking Status: Never smoker second hand exposure: No alcohol intake: current alcohol intake frequency: holidays/special occasions only details: not while substance use type: does not use well-balanced diet: daily or most days caffeine: No eating out: 1-3 times/week during the past year weight has: increased > 10 lbs what type of physical activity do you participate in: other details: crossfit frequency: 1-2 times per week duration: 45-60 minutes/day amanda/latter-day: Scientologist seatbelt use: always do you feel safe at home: Yes additional social history: - Farzad History 3 Elective abortions Hx Para 2 Spontaneous abortions Hx # Term Pregnancies Ectopic pregnancies Hx # Pregnancies Multiple births # of living children 2 Past Pregnancies Del. Date Name GA/Weeks Outcome Route Bth Weight Infant Gen Labor Lgth Anesthesia Del Locatn Provider KARAN 08/26/18 Jennifer 40 live - full term 9lbs Female 16 hours none Chandrika Panda 10/24/20 Aleksander 39 live - full term 8#10oz Male epidural [facility] Dr Aroldo Panda Delivery Date: 08/26/18 Last Updated by: Pauline Tay 3rd degree laceration; NICU for possible NEC- she did not have Visit Details OB Flowsheet Initial Weight: Not Recorded Date -???-???-???-???-?? ?-???-???-???-???-? ??-???-???- EGA Weight BP Urine Prot -???-???-???-???-?? ?-???-???-???-???-? ??-???-???- Glucose FHR FuHt Pres Dilation -???-???-???-???-?? ?-???-???-???-???-? ??-???-???- Effaced St Visit Note 07/28/24 -???-???-???-???-?? ?-???-???-???-???-? ??-???-???- 8w 5d 233 lb 2 oz 129/79 -???-???-???-???-?? ?-???-???-???-???-? ??-???-???- 170 -???-???-???-???-?? ?-???-???-???-???-? ??-???-???- SM- CRL 1.4 not cons with LMP 08/13/24 -???-???-???-???-?? ?-???-???-???-???-? ??-???-???- 11w 0d Negative -???-???-???-???-?? ?-???-???-???-???-? ??-???-???- Negative -???-???-???-???-?? ?-???-???-???-???-? ??-???-???- nurse visit for UTI sx. culture sent and rx for atb sent due to sx. 08/30/24 -???-???-???-???-?? ?-???-???-???-???-? ??-???-???- 13w 3d 234 lb 6 oz 115/73 Negative -???-???-???-???-?? ?-???-???-???-???-? ??-???-???- Negative 155 -???-???-???-???-?? ?-???-???-???-???-? ??-???-???- JV- no lof, va (more content not included)... Normal [facility] Clinical Therapist Office Visit Reporton 01-27-2025 Clinical Therapist Office Visit Report [facility] [address], [address] [place] [address] OFFICE VISIT Date of Service: 01/27/25 MR#: [id number] Acct: [id number] Name: BRITTANY ROCA Rep #: [id number] : 1985 Provider: RALPH Meier ams Age/Sex: 39/F [place] [facility] [place] Status: Signed Intake Vital Signs 01/06/25 08:44 01/24/25 10:21 01/27/25 14:01 Height 5 ft 10 in 5 ft 10 in 5 ft 10 in Weight: 250 lb 7 oz 249 lb 1 oz BMI 35.9 35.7 BP 103/69 113/74 Intake Visit Reasons: 35wk NST ONLY Drying Oven Tender Required: No Is patient in pain?: No Allergies avocado (avacado) Allergy (Intermediate, Verified 01/27/25 14:03) Swelling of tongue Medications ???Medication ???Instructions ???Recorded ???Confirmed ???Type mv-mn 110-FA 180 mcg-om3 35 mg-dha tab PO DAILY 07/23/24 01/27/25 H istory 25 mg-epa 5 mg-fish oil chew tablet flash glucose scanning reader #1 ea 08/31/24 01/27/25 Rx (FreeStyle Todd 2 [place]) flash glucose sensor (FreeStyle #1 ea 08/31/24 01/27/25 Rx Todd 2 Sensor kit) metformin 500 mg tablet 500 mg PO .COMPLEX #60 tabs 01/27/25 Rx valacyclovir 500 mg tablet 500 mg PO QDAY #30 tabs 01/18/25 1 Rx Last Menstrual Period: 05/28/24 Zika: Zika virus screening: Negative : No PFSH PFSH Medical History Varicose veins of both lower extremities Seasonal allergies Normal vaginal delivery Superficial varicosities Depression Gestational diabetes PCOS (polycystic ovarian syndrome) Genital herpes affecting Surgical History History of tonsillectomy Family History Aunt Breast cancer, Onset Age: 40 Maternal- unknown if genetic testing was done. 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 occupational exposures/hazards: No pets and animals: Yes pets and animals: dog(s) history of recent travel: Yes (- June) out of state: Yes out of country: No sexually active: Yes Smoking Status: Never smoker second hand exposure: No alcohol intake: current alcohol intake frequency: holidays/special occasions only details: not while substance use type: does not use well-balanced diet: daily or most days caffeine: No eating out: 1-3 times/week during the past year weight has: increased > 10 lbs what type of physical activity do you participate in: other details: crossfit frequency: 1-2 times per week duration: 45-60 minutes/day amanda/latter-day: Scientologist seatbelt use: always do you feel safe at home: Yes additional social history: - Farzad History 3 Elective abortions Hx Para 2 Spontaneous abortions Hx # Term Pregnancies Ectopic pregnancies Hx # Pregnancies Multiple births # of living children 2 Past Pregnancies Del. Date Name GA/Weeks Outcome Route Bth Weight Gen Labor Lgth Anesthesia Del Locatn Provider FOB 08/26/18 Jennifer 40 live - full term 9lbs Female 16 hours none [facility] Radha Panda 10/24/20 Aleksander 39 live - full term 8#10oz Male epidural [facility] Dr Aroldo Panda Delivery Date: 08/26/18 Last Updated by: Pauline Tay 3rd degree laceration; NICU for possible NEC- she did not have HPI 35wk NST ONLY Details: BRITTANY ROCA is a 39 year old who presents for routine OB visit. OB Visit ISIDRA Calculator Estimated Delivery Date Method Current WG Current Estimate 03/04/25 LMP (Certain) 34w 6d Other Estimates 03/10/25 Ultrasound #1 34w 0d 03/04/25 Ultrasound #2 34w 6d Initial Weight: Not Recorded Date -???-???-???-???-?? ?-???-???-???-???-? ??-???-???- EGA Weight BP Urine Prot -???-???-???-???-?? ?-???-???-???-???-? ??-???-???- Glucose FHR FuHt Pres Dilation -???-???-???-???-?? ?-???-???-???-???-? ??-???-???- Effaced St Visit Note 07/28/24 -???-???-???-???-?? ?-???-???-???-???-? ??-???-???- 8w 5d 233 lb 2 oz 129/79 -???-???-???-???-?? ?-???-???-???-???-? ??-???-???- 170 -???-???-???-???-?? ?-???-???-???-???-? ??-???-???- SM- CRL 1.4 not cons with LMP 08/13/24 -???-???-???-???-?? ?-???-???-???-???-? ??-???-???- 11w 0d Negative -???-???-???-???-?? ?-???-???-???-???-? ??-???-???- Negative -???-???-???-???-?? ?-???-???-???-???-? ??-???-???- nurse visit for UTI sx. culture sent and rx for atb sent due to sx. 08/30/24 -???-???-???-???-?? ?-???-???-???-???-? ??-?? (more content not included)... Normal [facility] - Chemistry and C hemistry - challengeOrdered By: Alycia Torres on 01-24-2025 Glucose Ql (U) Negative [facility] - UrinalysisOrder ed By: Alycia Torres on 01-24-2025 Protein Ql (U) Negative [facility] Clinical Therapist Office Visit Reporton 01-24-2025 Clinical Therapist Office Visit Report [facility] [address], [address] [place] [address] OFFICE VISIT Date of Service: 01/24/25 MR#: [id number] Acct: [id number] Name: BRITTANY ROCA Rep #: [id number] : 1985 Provider: RALPH Meier ams Age/Sex: 39/F Location: [facility] Status: Signed Intake Vital Signs 09/25/25 08:44 01/17/25 09:59 01/20/25 14:02 01/24/25 10:21 Height 5 ft 10 in 5 ft 10 in 5 ft 10 in 5 ft 10 in Weight: 244 lb 9 oz 247 lb 7 oz 250 lb 7 oz BMI 35.1 35.4 35.9 BP 106/68 112/70 103/69 Intake Visit Reasons: 35wk ob/nst Chief Complaint: 35wk OB Drying Oven Tender Required: No Is patient in pain?: No Allergies avocado (avacado) Allergy (Intermediate, Verified 01/24/25 10:19) Swelling of tongue Medications ???Medication ???Instructions ???Recorded ???Confirmed ???Type mv-mn 110-FA 180 mcg-om3 35 mg-dha tab PO DAILY 07/23/24 01/24/25 H istory 25 mg-epa 5 mg-fish oil chew tablet flash glucose scanning reader #1 ea 08/31/24 01/24/25 Rx (FreeStyle Todd 2 [place]) flash glucose sensor (FreeStyle #1 ea 08/31/24 01/24/25 Rx Todd 2 Sensor kit) metformin 500 mg tablet 500 mg PO .COMPLEX #60 tabs 01/24/25 Rx valacyclovir 500 mg tablet 500 mg PO QDAY #30 tabs 01/18/25 1 Rx Last Menstrual Period: 05/28/24 : No Have you fallen in the past year?: No PFSH PFSH Medical History Varicose veins of both lower extremities Seasonal allergies Normal vaginal delivery Superficial varicosities Depression Gestational diabetes PCOS (polycystic ovarian syndrome) Genital herpes affecting Surgical History History of tonsillectomy Family History Aunt Breast cancer, Onset Age: 40 Maternal- unknown if genetic testing was done. 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 occupational exposures/hazards: No pets and animals: Yes pets and animals: dog(s) history of recent travel: Yes (- June) out of state: Yes out of country: No sexually active: Yes Smoking Status: Never smoker second hand exposure: No alcohol intake: current alcohol intake frequency: holidays/special occasions only details: not while substance use type: does not use well-balanced diet: daily or most days caffeine: No eating out: 1-3 times/week during the past year weight has: increased > 10 lbs what type of physical activity do you participate in: other details: crossfit frequency: 1-2 times per week duration: 45-60 minutes/day amanda/latter-day: Scientologist seatbelt use: always do you feel safe at home: Yes additional social history: - Farzad History 3 Elective abortions Hx Para 2 Spontaneous abortions Hx # Term Pregnancies Ectopic pregnancies Hx # Pregnancies Multiple births # of living children 2 Past Pregnancies Del. Date Name GA/Weeks Outcome Route Bth Weight Infant Gen Labor Lgth Anesthesia Del Locatn Provider FOB 08/26/18 Jennifer 40 live - full term 9lbs Female 16 hours none [facility] Radha Panda 10/24/20 Aleksander 39 live - full term 8#10oz Male epidural [facility] Dr Aroldo Panda Delivery Date: 08/26/18 Last Updated by: Pauline Tay 3rd degree laceration; NICU for possible NEC- she did not have HPI 35wk ob/nst Details: BRITTANY ROCA is a 39 year old who presents for routine OB visit. OB Visit ISIDRA Calculator Estimated Delivery Date Method Current WG Current Estimate 03/04/25 LMP (Certain) 34w 3d Other Estimates 03/10/25 Ultrasound #1 33w 4d 03/04/25 Ultrasound #2 34w 3d Initial Weight: Not Recorded Date -???-???-???-???-?? ?-???-???-???-???-? ??-???-???- EGA Weight BP Urine Prot -???-???-???-???-?? ?-???-???-???-???-? ??-???-???- Glucose FHR FuHt Pres Dilation -???-???-???-???-?? ?-???-???-???-???-? ??-???-???- Effaced St Visit Note 07/28/24 -???-???-???-???-?? ?-???-???-???-???-? ??-???-???- 8w 5d 233 lb 2 oz 129/79 -???-???-???-???-?? ?-???-???-???-???-? ??-???-???- 170 -???-???-???-???-?? ?-???-???-???-???-? ??-???-???- SM- CRL 1.4 not cons with LMP 08/13/24 -???-???-???-???-?? ?-???-???-???-???-? ??-???-???- 11w 0d Negative -???-???-???-???-?? ?-???-???-???-???-? ??-???-???- Negative -???-???-???-???-?? ?-???-???-???-???-? ??-???-???- nurse visit for UTI sx. culture sent and rx for atb sent due to sx. 05 (more content not included)... Normal [facility] - Chemistry and C hemistry - challengeOrdered By: Alycia Torres on 01-20-2025 Glucose Ql (U) Negative [facility] - UrinalysisOrder ed By: Alycia Torres on 01-20-2025 Protein Ql (U) Negative [facility] Clinical Therapist Office Visit Reporton 01-20-2025 Clinical Therapist Office Visit Report [facility] [address], [address] [place] [address] OFFICE VISIT Date of Service: 01/20/25 MR#: [id number] Acct: [id number] Name: BRITTANY ROCA Rep #: [id number] : 1985 Provider: RALPH Meier ams Age/Sex: 39/F [place] [facility] [place]: Signed Intake Vital Signs 01/06/25 08:44 01/17/25 09:59 01/20/25 14:02 Height 5 ft 10 in 5 ft 10 in 5 ft 10 in Weight: 244 lb 9 oz 247 lb 7 oz BMI 35.1 35.4 BP 106/68 112/70 Intake Visit Reasons: 34wk NST ONLY Drying Oven Tender Required: No Is patient in pain?: No Allergies avocado (avacado) Allergy (Intermediate, Verified 01/20/25 14:06) Swelling of tongue Medications ???Medication ???Instructions ???Recorded ???Confirmed ???Type mv-mn 110-FA 180 mcg-om3 35 mg-dha tab PO DAILY 07/23/24 01/20/25 H istory 25 mg-epa 5 mg-fish oil chew tablet flash glucose scanning reader #1 ea 08/31/24 01/20/25 Rx (FreeStyle Todd 2 [place]) flash glucose sensor (FreeStyle #1 ea 08/31/24 01/20/25 Rx Todd 2 Sensor kit) metformin 500 mg tablet 500 mg PO .COMPLEX #60 tabs 01/20/25 Rx valacyclovir 500 mg tablet 500 mg PO QDAY #30 tabs 01/18/25 1 Rx Last Menstrual Period: 05/28/24 Zika: Zika virus screening: Negative : No PFSH PFSH Medical History Varicose veins of both lower extremities Seasonal allergies Normal vaginal delivery Superficial varicosities Depression Gestational diabetes PCOS (polycystic ovarian syndrome) Genital herpes affecting Surgical History History of tonsillectomy Family History Aunt Breast cancer, Onset Age: 40 Maternal- unknown if genetic testing was done. 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 occupational exposures/hazards: No pets and animals: Yes pets and animals: dog(s) history of recent travel: Yes (- June) out of state: Yes out of country: No sexually active: Yes Smoking Status: Never smoker second hand exposure: No alcohol intake: current alcohol intake frequency: holidays/special occasions only details: not while substance use type: does not use well-balanced diet: daily or most days caffeine: No eating out: 1-3 times/week during the past year weight has: increased > 10 lbs what type of physical activity do you participate in: other details: crossfit frequency: 1-2 times per week duration: 45-60 minutes/day amanda/latter-day: Scientologist seatbelt use: always do you feel safe at home: Yes additional social history: - Farzad History 3 Elective abortions Hx Para 2 Spontaneous abortions Hx # Term Pregnancies Ectopic pregnancies Hx # Pregnancies Multiple births # of living children 2 Past Pregnancies Del. Date Name GA/Weeks Outcome Route Bth Weight Gen Labor Lgth Anesthesia Del Locatn Provider FOB 08/26/18 Jennifer 40 live - full term 9lbs Female 16 hours none [facility] Radha Panda 10/24/20 Aleksander 39 live - full term 8#10oz Male epidural [facility] Dr Aroldo Panda Delivery Date: 08/26/18 Last Updated by: Pauline Tay 3rd degree laceration; NICU for possible NEC- she did not have HPI 34wk NST ONLY Details: BRITTANY ROCA is a 39 year old who presents for routine OB visit. OB Visit ISIDRA Calculator Estimated Delivery Date Method Current WG Current Estimate 03/04/25 LMP (Certain) 33w 6d Other Estimates 03/10/25 Ultrasound #1 33w 0d 03/04/25 Ultrasound #2 33w 6d Initial Weight: Not Recorded Date -???-???-???-???-?? ?-???-???-???-???-? ??-???-???- EGA Weight BP Urine Prot -???-???-???-???-?? ?-???-???-???-???-? ??-???-???- Glucose FHR FuHt Pres Dilation -???-???-???-???-?? ?-???-???-???-???-? ??-???-???- Effaced St Visit Note 07/28/24 -???-???-???-???-?? ?-???-???-???-???-? ??-???-???- 8w 5d 233 lb 2 oz 129/79 -???-???-???-???-?? ?-???-???-???-???-? ??-???-???- 170 -???-???-???-???-?? ?-???-???-???-???-? ??-???-???- - CRL 1.4 not cons with LMP 08/13/24 -???-???-???-???-?? ?-???-???-???-???-? ??-???-???- 11w 0d Negative -???-???-???-???-?? ?-???-???-???-???-? ??-???-???- Negative -???-???-???-???-?? ?-???-???-???-???-? ??-???-???- nurse visit for UTI sx. culture sent and rx for atb sent due to sx. 08/30/24 -???-???-???-???-?? ?-???-???-???-???-? ??-???-???- 13w (more content not included)... Normal [facility] - Chemistry and C hemistry - challengeOrdered By: Shannon Osuna on 01-17-2025 Glucose Ql (U) Negative [facility] - UrinalysisOrder ed By: Shannon Osuna on 01-17-2025 Protein Ql (U) Negative [facility] Clinical Therapist Office Visit Reporton 01-17-2025 Clinical Therapist Office Visit Report [address], [address] [place] [address] OFFICE VISIT Date of Service: 01/17/25 MR#: [id number] Acct: [id number] Name: BRITTANY ROCA Rep #: [id number] : 1985 Provider: CARROLL munoz Age/Sex: 39/F [place] [facility] [place] Status: Signed with Addenda ADDENDUM by Ro Zuniga on 01/17/25 at 1055 Office Procedure Documentation entered by Ro Zuniga 01/17/25 10:55: Immunizations Flucelvax [id number] (PF) 45 mcg (15 mcg x 3)/0.5 mL IM syringe Performing Provider: Shannon Osuna HEEL SEAT FILLER, HEEL SEAT FILLER-C Performing Location: [facility] Administered by: Ro Zuniga on 01/17/25 10:54 Dose Route Admin Location Dispensed Lot Number Expiration Date Package NDC NDC Audiologist 0.5 mL IM Left Deltoid 0.5 mL [id number] 08/21/25 [id number] [employer]. VIS Given Date VIS Provided VIS Publication Date 11/17/20 Single Vaccine 24 Eligibility Eligibility Date Funding Source Not Applicable Date cc: * Signed Intake Vital Signs 11/25/24 09:54 01/06/25 08:44 01/14/25 08:08 01/17/25 09:59 Height 5 ft 10 in 5 ft 10 in 5 ft 10 in 5 ft 10 in Weight: 244 lb 9 oz BMI 35.1 BP 106/68 Intake Visit Reasons: 34wk ob/nst Chief Complaint: 34 Week OB/NST Drying Oven Tender Required: No Is patient in pain?: No Allergies avocado (avacado) Allergy (Intermediate, Verified 01/17/25 09:59) Swelling of tongue Medications ???Medication ???Instructions ???Recorded ???Confirmed ???Type mv-mn 110-FA 180 mcg-om3 35 mg-dha tab PO DAILY 07/23/24 01/17/25 H istory 25 mg-epa 5 mg-fish oil chew tablet flash glucose scanning reader #1 ea 08/31/24 01/17/25 Rx (FreeStyle Todd 2 [place]) flash glucose sensor (FreeStyle #1 ea 08/31/24 01/17/25 Rx Todd 2 Sensor kit) metformin 500 mg tablet 500 mg PO .COMPLEX #60 tabs 01/17/25 Rx Last Menstrual Period: 05/28/24 Zika: Zika virus screening: Negative : No PFSH PFSH Medical History Varicose veins of both lower extremities Seasonal allergies Normal vaginal delivery Superficial varicosities Depression Gestational diabetes PCOS (polycystic ovarian syndrome) Genital herpes affecting Surgical History History of tonsillectomy Family History Aunt Breast cancer, Onset Age: 40 Maternal- unknown if genetic testing was done. 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 occupational exposures/hazards: No pets and animals: Yes pets and animals: dog(s) history of recent travel: Yes (June) out of state: Yes out of country: No sexually active: Yes Smoking Status: Never smoker second hand exposure: No alcohol intake: current alcohol intake frequency: holidays/special occasions only details: not while substance use type: does not use well-balanced diet: daily or most days caffeine: No eating out: 1-3 times/week during the past year weight has: increased > 10 lbs what type of physical activity do you participate in: other details: crossfit frequency: 1-2 times per week duration: 45-60 minutes/day amanda/latter-day: Scientologist seatbelt use: always do you feel safe at home: Yes additional social history: - Farzad History 3 Elective abortions Hx Para 2 Spontaneous abortions Hx # Term Pregnancies Ectopic pregnancies Hx # Pregnancies Multiple births # of living children 2 Past Pregnancies Del. Date Name GA/Weeks Outcome Route Bth Weight Gen Labor Lgth Anesthesia Del Locatn Provider FOB 08/26/18 Jennifer 40 live - full term 9lbs Female 16 hours none [facility] Radha Panda 10/24/20 Aleksander 39 live - full term 8#10oz Male epidural [facility] Dr Aroldo Panda Delivery Date: 08/26/18 Last Updated by: Pauline Tay 3rd degree laceration; NICU for possible NEC- she did not have HPI 34wk ob/nst Details: BRITTANY ROCA is a 39 year old who presents for routine OB visit. OB Visit ISIDRA Calculator Estimated Delivery Date Method Current WG Current Estimate 03/04/25 LMP (Certain) 33w 3d Other Estimates 03/10/25 Ultrasound #1 32w 4d 03/04/25 Ultrasound #2 33w 3d Initial Weight: Not Recorded Date -???-???-???-???-?? ?-???-???- (more content not included)... Normal [facility] - Chemistry and C hemistry - challengeOrdered By: Alycia Torres on 01-14-2025 Glucose Ql (U) Negative [facility] - UrinalysisOrder ed By: Alycia Torres on 01-14-2025 Protein Ql (U) Negative [facility] Clinical Therapist Office Visit Reporton 01-14-2025 Clinical Therapist Office Visit Report [facility] [address], [address] [place] [address] OFFICE VISIT Date of Service: 01/14/25 MR#: [id number] Acct: [id number] Name: BRITTANY ROCA Rep #: [id number] : 1985 Provider: RALPH Meier ams Age/Sex: 39/F [place] [facility] [place] Status: Signed Intake Vital Signs 01/06/25 08:44 01/11/25 09:01 01/14/25 08:08 Height 5 ft 10 in 5 ft 10 in 5 ft 10 in Weight: 247 lb 3 oz BMI 35.4 BP 116/71 Intake Visit Reasons: 33wk ob/nst Drying Oven Tender Required: No Is patient in pain?: No Allergies avocado (avacado) Allergy (Intermediate, Verified 01/14/25 08:13) Swelling of tongue Medications ???Medication ???Instructions ???Recorded ???Confirmed ???Type mv-mn 110-FA 180 mcg-om3 35 mg-dha tab PO DAILY 07/23/24 01/14/25 H istory 25 mg-epa 5 mg-fish oil chew tablet flash glucose scanning reader #1 ea 08/31/24 01/14/25 Rx (FreeStyle Todd 2 [place]) flash glucose sensor (FreeStyle #1 ea 08/31/24 01/14/25 Rx Todd 2 Sensor kit) metformin 500 mg tablet 500 mg PO .COMPLEX #60 tabs 01/14/25 Rx Last Menstrual Period: 05/28/24 Zika: Zika virus screening: Negative : No Have you fallen in the past year?: No PFSH PFSH Medical History Varicose veins of both lower extremities Seasonal allergies Normal vaginal delivery Superficial varicosities Depression Gestational diabetes PCOS (polycystic ovarian syndrome) Genital herpes affecting Surgical History History of tonsillectomy Family History Aunt Breast cancer, Onset Age: 40 Maternal- unknown if genetic testing was done. 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 occupational exposures/hazards: No pets and animals: Yes pets and animals: dog(s) history of recent travel: Yes (- June) out of state: Yes out of country: No sexually active: Yes Smoking Status: Never smoker second hand exposure: No alcohol intake: current alcohol intake frequency: holidays/special occasions only details: not while substance use type: does not use well-balanced diet: daily or most days caffeine: No eating out: 1-3 times/week during the past year weight has: increased > 10 lbs what type of physical activity do you participate in: other details: crossfit frequency: 1-2 times per week duration: 45-60 minutes/day amanda/latter-day: Scientologist seatbelt use: always do you feel safe at home: Yes additional social history: - Farzad History 3 Elective abortions Hx Para 2 Spontaneous abortions Hx # Term Pregnancies Ectopic pregnancies Hx # Pregnancies Multiple births # of living children 2 Past Pregnancies Del. Date Name GA/Weeks Outcome Route Bth Weight Infant Gen Labor Lgth Anesthesia Del Locatn Provider FONieves 08/26/18 Jennifer 40 live - full term 9lbs Female 16 hours none [facility] Radha Panda 10/24/20 Aleksander 39 live - full term 8#10oz Male epidural [facility] Dr Aroldo Panda Delivery Date: 08/26/18 Last Updated by: Pauline Tay 3rd degree laceration; NICU for possible NEC- she did not have HPI 33wk ob/nst Details: BRITTANY ROCA is a 39 year old who presents for routine OB visit. OB Visit ISIDRA Calculator Estimated Delivery Date Method Current WG Current Estimate 03/04/25 LMP (Certain) 33w 0d Other Estimates 03/10/25 Ultrasound #1 32w 1d 03/04/25 Ultrasound #2 33w 0d Initial Weight: Not Recorded Date -???-???-???-???-?? ?-???-???-???-???-? ??-???-???- EGA Weight BP Urine Prot -???-???-???-???-?? ?-???-???-???-???-? ??-???-???- Glucose FHR FuHt Pres Dilation -???-???-???-???-?? ?-???-???-???-???-? ??-???-???- Effaced St Visit Note 07/28/24 -???-???-???-???-?? ?-???-???-???-???-? ??-???-???- 8w 5d 233 lb 2 oz 129/79 -???-???-???-???-?? ?-???-???-???-???-? ??-???-???- 170 -???-???-???-???-?? ?-???-???-???-???-? ??-???-???- SM- CRL 1.4 not cons with LMP 08/13/24 -???-???-???-???-?? ?-???-???-???-???-? ??-???-???- 11w 0d Negative -???-???-???-???-?? ?-???-???-???-???-? ??-???-???- Negative -???-???-???-???-?? ?-???-???-???-???-? ??-???-???- nurse visit for UTI sx. culture sent and rx for atb sent due to sx. 08/30/24 -???-???-???-???-?? ?-???-???-???-???-? ??-???-???- 13w 3d 234 lb 6 oz 115/73 Negative -???-???-???-???-?? ?-???-???-???-???-? ? (more content not included)... Normal [facility] - Chemistry and C hemistry - challengeOrdered By: Sarah Sharma on 01-11-2025 Glucose Ql (U) Negative [facility] - UrinalysisOrder ed By: Sarah Sharma on 01-11-2025 Protein Ql (U) Negative [facility] Clinical Therapist Office Visit Reporton 01-11-2025 Clinical Therapist Office Visit Report [facility] [address], [address] [place] [address] OFFICE VISIT Date of Service: 01/11/25 MR#: [id number] Acct: [id number] Name: BRITTANY ROCA Rep #: [id number] : 1985 Provider: Dr. Sarah Ortiz DO Age/Sex: 39/F Location[place] [facility] [place] Status: Signed Intake Vital Signs 01/06/25 08:44 01/11/25 09:01 01/11/25 09:01 Height 5 ft 10 in 5 ft 10 in 5 ft 10 in Weight: 243 lb 5 oz 247 lb 2 oz BMI 34.9 35.4 BP 105/65 108/67 Intake Visit Reasons: 33wk NST ONLY Drying Oven Tender Required: No Is patient in pain?: No Allergies avocado (avacado) Allergy (Intermediate, Verified 01/11/25 09:00) Swelling of tongue Medications ???Medication ???Instructions ???Recorded ???Confirmed ???Type mv-mn 110-FA 180 mcg-om3 35 mg-dha tab PO DAILY 07/23/24 01/11/25 H istory 25 mg-epa 5 mg-fish oil chew tablet flash glucose scanning reader #1 ea 08/31/24 01/11/25 Rx (FreeStyle Todd 2 [place]) flash glucose sensor (FreeStyle #1 ea 08/31/24 01/11/25 Rx Todd 2 Sensor kit) sertraline 100 mg tablet 100 mg PO QDAY #30 tabs 12/28/24 0 01/11/25 Rx metformin 500 mg tablet 500 mg PO .COMPLEX #60 tabs 01/11/25 Rx Last Menstrual Period: 05/28/24 Zika: Zika virus screening: Negative : No PFSH PFSH Medical History Varicose veins of both lower extremities Seasonal allergies Normal vaginal delivery Superficial varicosities Depression Gestational diabetes PCOS (polycystic ovarian syndrome) Genital herpes affecting Surgical History History of tonsillectomy Family History Aunt Breast cancer, Onset Age: 40 Maternal- unknown if genetic testing was done. 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 occupational exposures/hazards: No pets and animals: Yes pets and animals: dog(s) history of recent travel: Yes (- June) out of state: Yes out of country: No sexually active: Yes Smoking Status: Never smoker second hand exposure: No alcohol intake: current alcohol intake frequency: holidays/special occasions only details: not while substance use type: does not use well-balanced diet: daily or most days caffeine: No eating out: 1-3 times/week during the past year weight has: increased > 10 lbs what type of physical activity do you participate in: other details: crossfit frequency: 1-2 times per week duration: 45-60 minutes/day amanda/latter-day: Scientologist seatbelt use: always do you feel safe at home: Yes additional social history: - Farzad History 3 Elective abortions Hx Para 2 Spontaneous abortions Hx # Term Pregnancies Ectopic pregnancies Hx # Pregnancies Multiple births # of living children 2 Past Pregnancies Del. Date Name GA/Weeks Outcome Route Bth Weight Infant Gen Labor Lgth Anesthesia Del Locatn Provider FOB 08/26/18 Jennifer 40 live - full term 9lbs Female 16 hours none [facility] E Nieves Panda 10/24/20 Aleksander 39 live - full term 8#10oz Male epidural [facility] Dr Aroldo Panda Delivery Date: 08/26/18 Last Updated by: Pauline Tay 3rd degree laceration; NICU for possible NEC- she did not have HPI 33wk NST ONLY Details: BRITTANY ROCA is a 39 year old who presents for routine OB visit. OB Visit ISIDRA Calculator Estimated Delivery Date Method Current WG Current Estimate 03/04/25 LMP (Certain) 32w 4d Other Estimates 03/10/25 Ultrasound #1 31w 5d 03/04/25 Ultrasound #2 32w 4d Initial Weight: Not Recorded Date -???-???-???-???-?? ?-???-???-???-???-? ??-???-???- EGA Weight BP Urine Prot -???-???-???-???-?? ?-???-???-???-???-? ??-???-???- Glucose FHR FuHt Pres Dilation -???-???-???-???-?? ?-???-???-???-???-? ??-???-???- Effaced St Visit Note 07/28/24 -???-???-???-???-?? ?-???-???-???-???-? ??-???-???- 8w 5d 233 lb 2 oz 129/79 -???-???-???-???-?? ?-???-???-???-???-? ??-???-???- 170 -???-???-???-???-?? ?-???-???-???-???-? ??-???-???- SM- CRL 1.4 not cons with LMP 08/13/24 -???-???-???-???-?? ?-???-???-???-???-? ??-???-???- 11w 0d Negative -???-???-???-???-?? ?-???-???-???-???-? ??-???-???- Negative -???-???-???-???-?? ?-???-???-???-???-? ??-???-???- nurse visit for UTI sx. culture sent and rx for atb sent due to sx. 08/30/24 -???-???-???-???-?? ?-???-???-???-???-? ? (more content not included)... Normal [facility] - Chemistry and C hemistry - challengeOrdered By: Shannon Osuna on 01-06-2025 Glucose Ql (U) Negative [facility] - UrinalysisOrder ed By: Shannon Osuna on 01-06-2025 Protein Ql (U) Negative [facility] Clinical Therapist Office Visit Reporton 01-06-2025 Clinical Therapist Office Visit Report [facility] [address], [address] [place] [address] OFFICE VISIT Date of Service: 01/06/25 MR#: [id number] Acct: [id number] Name: BRITTANY ROCA Rep #: [id number] : 1985 Provider: CARROLL munoz Age/Sex: 39/F [place] [facility] [place] Status: Signed Intake Vital Signs 11/25/24 09:54 12/28/24 15:10 01/06/25 08:44 Height 5 ft 10 in 5 ft 10 in 5 ft 10 in Weight: 243 lb 5 oz BMI 34.9 BP 105/65 Intake Visit Reasons: 32 wk ob Chief Complaint: 32 Week OB Drying Oven Tender Required: No Is patient in pain?: No Allergies avocado (avacado) Allergy (Intermediate, Verified 01/06/25 08:46) Swelling of tongue Medications ???Medication ???Instructions ???Recorded ???Confirmed ???Type mv-mn 110-FA 180 mcg-om3 35 mg-dha tab PO DAILY 07/23/24 01/06/25 H istory 25 mg-epa 5 mg-fish oil chew tablet flash glucose scanning reader #1 ea 08/31/24 01/06/25 Rx (FreeStyle Todd 2 [place]) flash glucose sensor (FreeStyle #1 ea 08/31/24 01/06/25 Rx Todd 2 Sensor kit) sertraline 100 mg tablet 100 mg PO QDAY #30 tabs 12/28/24 0 01/06/25 Rx metformin 500 mg tablet 500 mg PO .COMPLEX #60 tabs 01/06/25 Rx Last Menstrual Period: 05/28/24 Zika: Zika virus screening: Negative : No PFSH PFSH Medical History Varicose veins of both lower extremities Seasonal allergies Normal vaginal delivery Superficial varicosities Depression Gestational diabetes PCOS (polycystic ovarian syndrome) Genital herpes affecting Surgical History History of tonsillectomy Family History Aunt Breast cancer, Onset Age: 40 Maternal- unknown if genetic testing was done. 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 occupational exposures/hazards: No pets and animals: Yes pets and animals: dog(s) history of recent travel: Yes ([place]- June) out of state: Yes out of country: No sexually active: Yes Smoking Status: Never smoker second hand exposure: No alcohol intake: current alcohol intake frequency: holidays/special occasions only details: not while substance use type: does not use well-balanced diet: daily or most days caffeine: No eating out: 1-3 times/week during the past year weight has: increased > 10 lbs what type of physical activity do you participate in: other details: crossfit frequency: 1-2 times per week duration: 45-60 minutes/day amanda/latter-day: Scientologist seatbelt use: always do you feel safe at home: Yes additional social history: - Farzad History 3 Elective abortions Hx Para 2 Spontaneous abortions Hx # Term Pregnancies Ectopic pregnancies Hx # Pregnancies Multiple births # of living children 2 Past Pregnancies Del. Date Name GA/Weeks Outcome Route Bth Weight Gen Labor Lgth Anesthesia Del Locatn Provider FOB 08/26/18 Jennifer 40 live - full term 9lbs Female 16 hours none [facility] Radha Panda 10/24/20 Aleksander 39 live - full term 8#10oz Male epidural [facility] Dr Aroldo Panda Delivery Date: 08/26/18 Last Updated by: Pauline Tay 3rd degree laceration; NICU for possible NEC- she did not have HPI 32 wk ob Details: BRITTANY ROCA is a 39 year old who presents for routine OB visit. OB Visit ISIDRA Calculator Estimated Delivery Date Method Current WG Current Estimate 03/04/25 LMP (Certain) 31w 6d Other Estimates 03/10/25 Ultrasound #1 31w 0d 03/04/25 Ultrasound #2 31w 6d Initial Weight: Not Recorded Date -???-???-???-???-?? ?-???-???-???-???-? ??-???-???- EGA Weight BP Urine Prot -???-???-???-???-?? ?-???-???-???-???-? ??-???-???- Glucose FHR FuHt Pres Dilation -???-???-???-???-?? ?-???-???-???-???-? ??-???-???- Effaced St Visit Note 07/28/24 -???-???-???-???-?? ?-???-???-???-???-? ??-???-???- 8w 5d 233 lb 2 oz 129/79 -???-???-???-???-?? ?-???-???-???-???-? ??-???-???- 170 -???-???-???-???-?? ?-???-???-???-???-? ??-???-???- SM- CRL 1.4 not cons with LMP 08/13/24 -???-???-???-???-?? ?-???-???-???-???-? ??-???-???- 11w 0d Negative -???-???-???-???-?? ?-???-???-???-???-? ??-???-???- Negative -???-???-???-???-?? ?-???-???-???-???-? ??-???-???- nurse visit for UTI sx. culture sent and rx for atb sent due to sx. 08/30/24 -???-???-???-???-?? ?-???-???-???-???-? ??-???-??? (more content not included)... Normal [facility] - Chemistry and C hemistry - challengeOrdered By: Shannon Osuna on 12-28-2024 Glucose Ql (U) Negative [facility] - UrinalysisOrder ed By: Shannon Osuna on 12-28-2024 Protein Ql (U) Negative [facility] Clinical Therapist Office Visit Reporton 12-28-2024 Clinical Therapist Office Visit Report [facility] [address], [address] [place] [address] OFFICE VISIT Date of Service: 12/28/24 MR#: [id number] Acct: [id number] Name: BRITTANY ROCA Rep #: [id number] : 1985 Provider: CARROLL munoz Age/Sex: 39/F [place] [facility] [place] Status: Signed Intake Vital Signs 12/22/24 14:07 12/28/24 15:10 Height 5 ft 10 in 5 ft 10 in Weight: 241 lb 6 oz BMI 34.6 BP 102/66 Intake Visit Reasons: increased mood swings concerns -per sm Chief Complaint: mood concerns Drying Oven Tender Required: No Is patient in pain?: No Allergies avocado (avacado) Allergy (Intermediate, Verified 12/28/24 15:10) Swelling of tongue Medications ???Medication ???Instructions ???Recorded ???Confirmed ???Type mv-mn 110-FA 180 mcg-om3 35 mg-dha tab PO DAILY 07/23/24 12/28/24 H istory 25 mg-epa 5 mg-fish oil chew tablet flash glucose scanning reader #1 ea 08/31/24 12/28/24 Rx (FreeStyle Todd 2 [place]) flash glucose sensor (FreeStyle #1 ea 08/31/24 12/28/24 Rx Todd 2 Sensor kit) metformin 500 mg tablet 500 mg PO .COMPLEX 10/08/24 History sertraline 100 mg tablet 100 mg PO QDAY #30 tabs 12/28/24 0 12/28/24 Rx Last Menstrual Period: 05/28/24 Zika: Zika virus screening: Negative : No PFSH PFSH Medical History Varicose veins of both lower extremities Seasonal allergies Normal vaginal delivery Superficial varicosities Depression Gestational diabetes PCOS (polycystic ovarian syndrome) Genital herpes affecting Surgical History History of tonsillectomy Family History Aunt Breast cancer, Onset Age: 40 Maternal- unknown if genetic testing was done. 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 occupational exposures/hazards: No pets and animals: Yes pets and animals: dog(s) history of recent travel: Yes (- June) out of state: Yes out of country: No sexually active: Yes Smoking Status: Never smoker second hand exposure: No alcohol intake: current alcohol intake frequency: holidays/special occasions only details: not while substance use type: does not use well-balanced diet: daily or most days caffeine: No eating out: 1-3 times/week during the past year weight has: increased > 10 lbs what type of physical activity do you participate in: other details: crossfit frequency: 1-2 times per week duration: 45-60 minutes/day amanda/latter-day: Scientologist seatbelt use: always do you feel safe at home: Yes additional social history: - Farzad History 3 Elective abortions Hx Para 2 Spontaneous abortions Hx # Term Pregnancies Ectopic pregnancies Hx # Pregnancies Multiple births # of living children 2 Past Pregnancies Del. Date Name GA/Weeks Outcome Route Bth Weight Gen Labor Lgth Anesthesia Del Locatn Provider FOB 08/26/18 Jennifer 40 live - full term 9lbs Female 16 hours none [facility] Radha Panda 10/24/20 Aleksander 39 live - full term 8#10oz Male epidural [facility] Dr Aroldo Panda Delivery Date: 08/26/18 Last Updated by: Pauline Tay 3rd degree laceration; NICU for possible NEC- she did not have HPI increased mood swings concerns -per Details: BRITTANY ROCA is a 39 year old who presents for routine OB visit. OB Visit ISIDRA Calculator Estimated Delivery Date Method Current WG Current Estimate 03/04/25 LMP (Certain) 30w 4d Other Estimates 03/10/25 Ultrasound #1 29w 5d 03/04/25 Ultrasound #2 30w 4d Initial Weight: Not Recorded Date -???-???-???-???-?? ?-???-???-???-???-? ??-???-???- EGA Weight BP Urine Prot -???-???-???-???-?? ?-???-???-???-???-? ??-???-???- Glucose FHR FuHt Pres Dilation -???-???-???-???-?? ?-???-???-???-???-? ??-???-???- Effaced St Visit Note 07/28/24 -???-???-???-???-?? ?-???-???-???-???-? ??-???-???- 8w 5d 233 lb 2 oz 129/79 -???-???-???-???-?? ?-???-???-???-???-? ??-???-???- 170 -???-???-???-???-?? ?-???-???-???-???-? ??-???-???- - CRL 1.4 not cons with LMP 08/13/24 -???-???-???-???-?? ?-???-???-???-???-? ??-???-???- 11w 0d Negative -???-???-???-???-?? ?-???-???-???-???-? ??-???-???- Negative -???-???-???-???-?? ?-???-???-???-???-? ??-???-???- nurse visit for UTI sx. culture sent and rx for atb sent due to sx. 08/30/24 -???-???-???-???- (more content not included)... Normal [facility] - Chemistry and C hemistry - challengeOrdered By: Alycia Torres on 12-22-2024 Glucose Ql (U) Negative [facility] - UrinalysisOrder ed By: Alycia Torres on 12-22-2024 Protein Ql (U) Negative [facility] Clinical Therapist Office Visit Reporton 12-22-2024 Clinical Therapist Office Visit Report [facility], [address] [place] [address] OFFICE VISIT Date of Service: 12/22/24 MR#: [id number] Acct: [id number] Name: BRITTANY ROCA Rep #: [id number] : 1985 Provider: RALPH Meier ams Age/Sex: 39/F [place] [facility] [place] Status: Signed Intake Vital Signs 09/27/24 10:22 11/25/24 09:54 12/22/24 14:07 Height 5 ft 10 in 5 ft 10 in 5 ft 10 in Weight: 241 lb 8 oz BMI 34.6 BP 113/79 Intake Visit Reasons: 30wk ob Chief Complaint: 30wk OB Drying Oven Tender Required: No Is patient in pain?: No Allergies avocado (avacado) Allergy (Intermediate, Verified 12/22/24 14:07) Swelling of tongue Medications ???Medication ???Instructions ???Recorded ???Confirmed ???Type mv-mn 110-FA 180 mcg-om3 35 mg-dha tab PO DAILY 07/23/24 12/22/24 H istory 25 mg-epa 5 mg-fish oil chew tablet sertraline 50 mg tablet (Zoloft) 50 mg PO QDAY #30 tabs 07/28/24 Rx flash glucose scanning reader #1 ea 08/31/24 12/22/24 Rx (FreeStyle Todd 2 [place]) flash glucose sensor (FreeStyle #1 ea 08/31/24 12/22/24 Rx Todd 2 Sensor kit) metformin 500 mg tablet 500 mg PO .COMPLEX 10/08/24 History Last Menstrual Period: 05/28/24 : No PFSH PFSH Medical History Varicose veins of both lower extremities Seasonal allergies Normal vaginal delivery Superficial varicosities Depression Gestational diabetes PCOS (polycystic ovarian syndrome) Genital herpes affecting Surgical History History of tonsillectomy Family History Aunt Breast cancer, Onset Age: 40 Maternal- unknown if genetic testing was done. 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 occupational exposures/hazards: No pets and animals: Yes pets and animals: dog(s) history of recent travel: Yes (- June) out of state: Yes out of country: No sexually active: Yes Smoking Status: Never smoker second hand exposure: No alcohol intake: current alcohol intake frequency: holidays/special occasions only details: not while substance use type: does not use well-balanced diet: daily or most days caffeine: No eating out: 1-3 times/week during the past year weight has: increased > 10 lbs what type of physical activity do you participate in: other details: crossfit frequency: 1-2 times per week duration: 45-60 minutes/day amanda/latter-day: Scientologist seatbelt use: always do you feel safe at home: Yes additional social history: - Farzad History 3 Elective abortions Hx Para 2 Spontaneous abortions Hx # Term Pregnancies Ectopic pregnancies Hx # Pregnancies Multiple births # of living children 2 Past Pregnancies Del. Date Name GA/Weeks Outcome Route Bth Weight Gen Labor Lgth Anesthesia Del Locatn Provider KARAN 08/26/18 Jennifer 40 live - full term 9lbs Female 16 hours none [facility] Radha Panda 10/24/20 Aleksander 39 live - full term 8#10oz Male epidural [facility] Dr Aroldo Panda Delivery Date: 08/26/18 Last Updated by: Pauline Tay 3rd degree laceration; NICU for possible NEC- she did not have HPI 30wk ob Details: BRITTANY ROCA is a 39 year old who presents for routine OB visit. OB Visit ISIDRA Calculator Estimated Delivery Date Method Current WG Current Estimate 03/04/25 LMP (Certain) 29w 5d Other Estimates 03/10/25 Ultrasound #1 28w 6d 03/04/25 Ultrasound #2 29w 5d Initial Weight: Not Recorded Date -???-???-???-???-?? ?-???-???-???-???-? ??-???-???- EGA Weight BP Urine Prot -???-???-???-???-?? ?-???-???-???-???-? ??-???-???- Glucose FHR FuHt Pres Dilation -???-???-???-???-?? ?-???-???-???-???-? ??-???-???- Effaced St Visit Note 07/28/24 -???-???-???-???-?? ?-???-???-???-???-? ??-???-???- 8w 5d 233 lb 2 oz 129/79 -???-???-???-???-?? ?-???-???-???-???-? ??-???-???- 170 -???-???-???-???-?? ?-???-???-???-???-? ??-???-???- SM- CRL 1.4 not cons with LMP 08/13/24 -???-???-???-???-?? ?-???-???-???-???-? ??-???-???- 11w 0d Negative -???-???-???-???-?? ?-???-???-???-???-? ??-???-???- Negative -???-???-???-???-?? ?-???-???-???-???-? ??-???-???- nurse visit for UTI sx. culture sent and rx for atb sent due to sx. 08/30/24 -???-???-???-???-?? ?-???-???-???-???-? ??-???-???- 13w 3d 234 lb 6 oz 115/73 Negative -???-???-???-???-?? ?-?? (more content not included)... Normal [facility] Absolute lymphocyte countOrd ered By: Holly Rainer on 11-25-2024 Lymphocytes Auto (Unsp spec) [#/Vol] 1.73 10*3/uL 0.83-4.51 [facility] Absolute neutrophil countOrd ered By: Holly Rainer on 11-25-2024 Neutrophils (Bld) [#/Vol] 6.3 10*3/uL 2.0-7.7 [facility] Automated lymphocyte count a s percentage of total leukocytesOrdered By: Holly Spear on 11-25-2024 Lymphocytes/100 WBC Auto (Unsp spec) 20.3 % 19-41 [facility] Basophil percentageOrdered B y: Holly Spear on 11-25-2024 Basophils/100 WBC (Bld) 0.2 % 0-1 [facility] CBC W/Diff, Automatedon 11-12 Absolute Lymph 1.73 X10 3/uL Normal 0.83-4.51 [facility] Comment on above: Performed By: #### L 100.0100, L3890.6006, L509.8002 ####[facility] [address] [place], [address] Absolute Neut 6.3 X10 3/uL Normal 2.0-7.7 [facility] Comment on above: Performed By: #### L 100.0100, L3890.6006, L509.8002 ####[facility] [address] [place], [address] Basophils/100 WBC (Bld) 0.2 % Normal 0-1 [facility] Comment on above: Performed By: #### L 100.0100, L3890.6006, L509.8002 ####[facility] [address] [place], [address] Eosinophils/100 WBC (Bld) 0.8 % Normal 0-5 [facility] Comment on above: Performed By: #### L 100.0100, L3890.6006, L509.8002 ####[facility] [address] [place], [address] Erythrocyte distribution width (RBC) [Ratio] 12.7 % Normal 11.6-14.6 [facility] Comment on above: Performed By: #### L 100.0100, L3890.6006, L509.8002 ####[facility] [address] [place], [address] Hematocrit (Bld) [Volume fraction] 35.2 % Low 37-47 [facility] Comment on above: Performed By: #### L 100.0100, L3890.6006, L509.8002 ####[facility] [address] [place], [address] Hemoglobin (Bld) [Mass/Vol] 11.9 g/dL Low 12.0-15.0 [facility] Comment on above: Performed By: #### L 100.0100, L3890.6006, L509.8002 ####[facility] [address] [place], [address] IG% 0.200 Normal 0.0-0.9 [facility] Comment on above: Result Comment: IG% - Immature Granulocytes (promyelocytes, myelocytes and metamyelocytes) > 1% indicates that a LEFT SHIFT is Present. Performed By: #### L 100.0100, L3890.6006, L509.8002 ####[facility] [address] [place], [address] Lymphocytes/100 WBC (Bld) 20.3 % Normal 19-41 [facility] Comment on above: Performed By: #### L 100.0100, L3890.6006, L509.8002 ####[facility] [address] [place], [address] MCH (RBC) [Entitic mass] 31.6 pg Normal 27.0-32.0 [facility] Comment on above: Performed By: #### L 100.0100, L3890.6006, L509.8002 ####[facility] [address] [place], [address] MCHC (RBC) [Mass/Vol] 33.8 g/dL Normal 32-36 [facility] Comment on above: Performed By: #### L 100.0100, L3890.6006, L509.8002 ####[facility] [address] [place], [address] MCV (RBC) [Entitic vol] 93.6 fL Normal 81-99 [facility] Comment on above: Performed By: #### L 100.0100, L3890.6006, L509.8002 ####[facility] [address] [place], [address] Monocytes/100 WBC (Bld) 4.7 % Normal 0-10 [facility] Comment on above: Performed By: #### L 100.0100, L3890.6006, L509.8002 ####[facility] [address] [place], [address] Neutrophils/100 WBC (Bld) 73.8 % High 47-70 [facility] Comment on above: Performed By: #### L 100.0100, L3890.6006, L509.8002 ####[facility] [address] [place], [address] Nucleated RBC (Bld) [#/Vol] 0 10*3/uL Normal 0-5 [facility] Comment on above: Performed By: #### L 100.0100, L3890.6006, L509.8002 ####[facility] [address] [place], [address] Platelet mean volume (Bld) [Entitic vol] 12.1 fL High 6.2-12.0 [facility] Comment on above: Performed By: #### L 100.0100, L3890.6006, L509.8002 ####[facility] [address] [place], [address] Platelets (Bld) [#/Vol] 245 10*3/uL Normal 150-450 [facility] Comment on above: Performed By: #### L 100.0100, L3890.6006, L509.8002 ####[facility] [address] [place], [address] RBC (Bld) [#/Vol] 3.76 10*6/uL Low 4.2-5.4 [facility] Comment on above: Performed By: #### L 100.0100, L3890.6006, L509.8002 ####[facility] [address] [place], [address] RDW SD 43.4 fl Normal 35.1-43.9 [facility] Comment on above: Performed By: #### L 100.0100, L3890.6006, L509.8002 ####[facility] [address] [place], [place], [id number] WBC (Bld) [#/Vol] 8.5 10*3/uL Normal 4.4-11.0 [facility] Comment on above: Performed By: #### L 100.0100, L3890.6006, L509.8002 ####[facility] [address] [place], [address] Eosinophil percentageOrdered By: Holly Spear on 11-25-2024 Eosinophils/100 WBC (Bld) 0.8 % 0-5 [facility] Erythrocyte distribution wid th ratioOrdered By: Holly Spear on 11-25-2024 Erythrocyte distribution width (RBC) [Ratio] 12.7 % 11.6-14.6 [facility] Erythrocyte distribution wid th standard deviationOrdered By: Holly Spear on 11-25-2024 Erythrocyte distribution width (RBC) [Ratio] 43.4 fl 35.1-43.9 [facility] HIVon 11-25-2024 HIV Non-Reactive Normal Nonreactive [facility] Comment on above: Result Comment: Non- Reactive Reactive Repeatedly reactive samples must be confirmed according to CDC recommended confirmatory algorithms. The subresults for either HIVAG or AHIV can be used as an aid in the selection of the confirmation algorithm for reactive samples. Send out specimens with Reactive results to [facility] for confirmation. Order the HIV antibody detection and differentiation: #[id number] Performed By: #### L 100.0100, L3890.6006, L509.8002 ####[facility] [address] [place], [place], [id number] Hematocrit Auto (Bld) [Volum e fraction]Ordered By: Holly Spear on 11-25-2024 Hematocrit (Bld) [Volume fraction] 35.2 % Low 37-47 [facility] Hemoglobin measurementOrdere d By: Holly Spear on 11-25-2024 Hemoglobin (Bld) [Mass/Vol] 11.9 g/dL Low 12.0-15.0 [facility] Immature granulocytes/100 WB C Auto (Bld)Ordered By: Holly Spear on 11-25-2024 Immature granulocytes/100 WBC (Bld) 0.200 % 0.0-0.9 [facility] Comment on above: IG% - Immature Granu locytes (promyelocytes, myelocytes and metamyelocytes) > 1% indicates that a LEFT SHIFT is Present. Laboratory - Chemistry and C hemistry - challengeOrdered By: Holly Spear on 11-25-2024 Glucose Ql (U) Negative [facility] - UrinalysisOrder ed By: Holly Spear on 11-25-2024 Protein Ql (U) Negative [facility] MCV (mean corpuscular volume ) determinationOrdered By: Holly Spear on 11-25-2024 MCV (RBC) [Entitic vol] 93.6 fL 81-99 [facility] Mean corpuscular hemoglobin (MCH) determinationOrdered By: Holly Spear on 11-25-2024 MCH (RBC) [Entitic mass] 31.6 pg 27.0-32.0 [facility] Mean corpuscular hemoglobin concentration (MCHC) determinationOrdered By: Holly Spear on 11-25-2024 MCHC (RBC) [Mass/Vol] 33.8 g/dL 32-36 [facility] Mean platelet volume determi nationOrdered By: Holly Spear on 11-25-2024 Platelet mean volume (Bld) [Entitic vol] 12.1 fL High 6.2-12.0 [facility] Monocyte percentageOrdered B y: Holly Spear on 11-25-2024 Monocytes/100 WBC (Bld) 4.7 % 0-10 [facility] Neutrophil percentageOrdered By: Holly Spear on 11-25-2024 Neutrophils/100 WBC (Bld) 73.8 % High 47-70 [facility] No Panel InformationOrdered By: Holly Spear on 11-25-2024 HIV (1&2) Antibody Non-Reactive Nonreactive [facility] Comment on above: Non-ReactiveReactive Repeatedly reactive samples must be confirmed according to CDC recommended confirmatory algorithms. The subresults for either HIVAG or AHIV can be used as an aid in the selection of the confirmation algorithm for reactive samples.Send out specimens with Reactive results to [facility] for confirmation.Order the HIV antibody detection and differentiation: #[id number] Nucleated red blood cell per centageOrdered By: Holly Spear on 11-25-2024 Nucleated RBC/100 WBC (Bld) [Ratio] 0 % 0-5 [facility] Clinical Therapist Office Visit Reporton 11-25-2024 Clinical Therapist Office Visit Report [facility] [address], [address] [place] [address] OFFICE VISIT Date of Service: 11/25/24 MR#: [id number] Acct: [id number] Name: BRITTANY ROCA Rep #: [id number] : 1985 Provider: Dr. Holly sweeney MD Age/Sex: 39/F [place] [facility] [place] Status: Signed Intake Vital Signs 09/27/24 10:22 10/28/24 13:39 11/25/24 09:54 Height 5 ft 10 in 5 ft 10 in 5 ft 10 in Weight: 236 lb 9 oz BMI 33.9 BP 97/64 Intake Visit Reasons: 26wk ob/glucose Drying Oven Tender Required: No Is patient in pain?: No Allergies avocado (avacado) Allergy (Intermediate, Verified 11/25/24 10:03) Swelling of tongue Medications ???Medication ???Instructions ???Recorded ???Confirmed ???Type mv-mn 110-FA 180 mcg-om3 35 mg-dha tab PO DAILY 07/23/24 11/25/24 H istory 25 mg-epa 5 mg-fish oil chew tablet sertraline 50 mg tablet (Zoloft) 50 mg PO QDAY #30 tabs 07/28/24 Rx flash glucose scanning reader #1 ea 08/31/24 11/25/24 Rx (FreeStyle Todd 2 [place]) flash glucose sensor (FreeStyle #1 ea 08/31/24 11/25/24 Rx Todd 2 Sensor kit) metformin 500 mg tablet 500 mg PO .COMPLEX 10/08/24 History Last Menstrual Period: 05/28/24 Zika: Zika virus screening: Negative : No PFSH PFSH Medical History Varicose veins of both lower extremities Seasonal allergies Normal vaginal delivery Superficial varicosities Depression Gestational diabetes PCOS (polycystic ovarian syndrome) Genital herpes affecting Surgical History History of tonsillectomy Family History Aunt Breast cancer, Onset Age: 40 Maternal- unknown if genetic testing was done. 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 occupational exposures/hazards: No pets and animals: Yes pets and animals: dog(s) history of recent travel: Yes (- June) out of state: Yes out of country: No sexually active: Yes Smoking Status: Never smoker second hand exposure: No alcohol intake: current alcohol intake frequency: holidays/special occasions only details: not while substance use type: does not use well-balanced diet: daily or most days caffeine: No eating out: 1-3 times/week during the past year weight has: increased > 10 lbs what type of physical activity do you participate in: other details: crossfit frequency: 1-2 times per week duration: 45-60 minutes/day amanda/latter-day: Scientologist seatbelt use: always do you feel safe at home: Yes additional social history: - Farzad History 3 Elective abortions Hx Para 2 Spontaneous abortions Hx # Term Pregnancies Ectopic pregnancies Hx # Pregnancies Multiple births # of living children 2 Past Pregnancies Del. Date Name GA/Weeks Outcome Route Bth Weight Gen Labor Lgth Anesthesia Del Locatn Provider KARAN 08/26/18 Jennifer 40 live - full term 9lbs Female 16 hours none FRANCIS Panda 10/24/20 Aleksander 39 live - full term 8#10oz Male epidural [facility] Dr Aroldo Panda Delivery Date: 05/15/19 Last Updated by: Pauline Tay 3rd degree laceration; NICU for possible NEC- she did not have HPI 26wk ob/glucose Details: BRITTANY ROCA is a 39 year old who presents for routine OB visit. OB Visit ISIDRA Calculator Estimated Delivery Date Method Current WG Current Estimate 03/04/25 LMP (Certain) 25w 6d Other Estimates 03/10/25 Ultrasound #1 25w 0d 03/04/25 Ultrasound #2 25w 6d Initial Weight: Not Recorded Date -???-???-???-???-?? ?-???-???-???-???-? ??-???-???- EGA Weight BP Urine Prot -???-???-???-???-?? ?-???-???-???-???-? ??-???-???- Glucose FHR FuHt Pres Dilation -???-???-???-???-?? ?-???-???-???-???-? ??-???-???- Effaced St Visit Note 07/28/24 -???-???-???-???-?? ?-???-???-???-???-? ??-???-???- 8w 5d 233 lb 2 oz 129/79 -???-???-???-???-?? ?-???-???-???-???-? ??-???-???- 170 -???-???-???-???-?? ?-???-???-???-???-? ??-???-???- SM- CRL 1.4 not cons with LMP 08/13/24 -???-???-???-???-?? ?-???-???-???-???-? ??-???-???- 11w 0d Negative -???-???-???-???-?? ?-???-???-???-???-? ??-???-???- Negative -???-???-???-???-?? ?-???-???-???-???-? ??-???-???- nurse visit for UTI sx. culture sent and rx for atb sent due to sx. 08/30/24 -???-???-???-???-?? ?-???-???-???-???-? ??-???-???- 13w 3d 234 lb 6 (more content not included)... Normal [facility] Platelet countOrdered By: Isaiah Spear on 11-25-2024 Platelets (Bld) [#/Vol] 245 10*3/uL 150-450 [facility] RBC Auto (Bld) [#/Vol]Ordere d By: Holly Spear on 11-25-2024 RBC (Bld) [#/Vol] 3.76 10*6/uL Low 4.2-5.4 [facility] Syphilis Antibodieson 2024 Syphilis Abs Non-Reactive Normal Nonreactive [facility] Comment on above: Performed By: #### L 100.0100, L3890.6006, L509.8002 ####[facility] [address] [place], [place], [id number] White blood cell (WBC) count Ordered By: Holly Spear on 11-25-2024 WBC (Bld) [#/Vol] 8.5 10*3/uL 4.4-11.0 [facility] Endocrinology Visit Reporton 10-28-2024 Endocrinology Visit Report [facility] [address] [place], [place] [address] OFFICE VISIT Date of Service: 10/28/24 MR#: [id number] Acct: [id number] Name: BRITTANY ROCA Rep #: [id number] : 1985 Provider: Ajith Gaviria Age/Sex: 39/F Location: [facility] [place] Status: Signed Intake Vital Signs 09/27/24 10:22 10/25/24 10:15 10/28/24 13:39 Height 5 ft 10 in 5 ft 10 in 5 ft 10 in Weight: 236 lb 6 oz 236 lb 2 oz 238 lb BMI 33.9 33.8 34.1 BP 116/75 122/70 H 112/73 Blood Pressure Location Rt brachial Position Sitting Pulse 81 Pulse Source Monitor Pulse Oximetry (%) 97 Oxygen Delivery Method room air Intake Visit Reasons: Re-est Gestational Diabetes Chief Complaint: Gestational diabetes Is patient in pain?: No Allergies avocado (avacado) Allergy (Intermediate, Verified 10/28/24 13:40) Swelling of tongue Medications ???Medication ???Instructions ???Recorded ???Confirmed ???Type mv-mn 110-FA 180 mcg-om3 35 mg-dha tab PO DAILY 07/23/24 10/28/24 H istory 25 mg-epa 5 mg-fish oil chew tablet sertraline 50 mg tablet (Zoloft) 50 mg PO QDAY #30 tabs 07/28/24 Rx flash glucose scanning reader #1 ea 08/31/24 10/25/24 Rx (FreeStyle Todd 2 [place]) flash glucose sensor (FreeStyle #1 ea 08/31/24 10/25/24 Rx Todd 2 Sensor kit) metformin 500 mg tablet 500 mg PO .COMPLEX 10/08/24 History PFSH Medical History (Updated 11/04/24 @ 14:[address] Jeovanny Hall MD) Varicose veins of both lower extremities Seasonal allergies Normal vaginal delivery Superficial varicosities Depression Gestational diabetes PCOS (polycystic ovarian syndrome) Genital herpes affecting Surgical History History of tonsillectomy Family History Aunt Breast cancer, Onset Age: 40 Maternal- unknown if genetic testing was done. 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 occupational exposures/hazards: No pets and animals: Yes pets and animals: dog(s) history of recent travel: Yes (- June) out of state: Yes out of country: No sexually active: Yes Smoking Status: Never smoker second hand exposure: No alcohol intake: current alcohol intake frequency: holidays/special occasions only details: not while substance use type: does not use well-balanced diet: daily or most days caffeine: No eating out: 1-3 times/week during the past year weight has: increased > 10 lbs what type of physical activity do you participate in: other details: crossfit frequency: 1-2 times per week duration: 45-60 minutes/day amanda/latter-day: Scientologist seatbelt use: always do you feel safe at home: Yes additional social history: - [facility] Chief Complaint: Gestational diabetes Details: BRITTANY ROCA, is a 39 F who presents to the office today for management of GDM. I saw her in July, during her second . She had diet controlled GDM. Daughter weighed 9 lbs, son weighed 8 pounds 10 oz. She is currently 21 weeks gestation. She has been sending in her blood sugars. She is using Todd CGM. She is taking metformin 1 g at supper. ROS Const Constitutional: No fatigue or weight change ENT ENT: No dizziness/vertigo Cardio Cardiology: No chest pain at rest, chest pain with exertion, shortness of breath or palpitations Skin Skin: No wounds Endo Endocrine: No fatigue or weight change Exam Const General: cooperative, healthy appearing, comfortable, no acute distress, well developed and not cushingoid Nutritional Appearance: well nourished Orientation: alert, awake and oriented x3 HENMT Head: normal to inspection Ears: hearing grossly normal bilaterally Nose: external nose normal Mouth: oral mucosae normal Eyes General: appearance normal, both eyes and all related structures Alignment and Position: alignment normal Periorbital: periorbital findings normal Eyelids: eyelids normal Conjunctivae: conjunctivae normal Neck Neck: normal visual inspection Neck mass: No Thyroid: thyroid normal Lymphatic: no lymphadenopathy noted Chest Chest palpation inspection: normal inspection of the chest Resp Effort Inspection: normal respiratory effort, able to speak in complete sentences, symmetric chest movement, no audible wheezes and no cough Auscultation: Bilateral: Clear to Auscultation Cardio Rate: regular rate Rhythm: r (more content not included)... Normal [facility] - Chemistry and C hemistry - challengeOrdered By: Shannon Osuna on 10-25-2024 Glucose Ql (U) Negative [facility] - UrinalysisOrder ed By: Shannon Osuna on 10-25-2024 Protein Ql (U) Negative [facility] Clinical Therapist Office Visit Reporton 10-25-2024 Clinical Therapist Office Visit Report [facility], [address] [place] [address] OFFICE VISIT Date of Service: 10/25/24 MR#: [id number] Acct: [id number] Name: BRITTANY ROCA Rep #: [id number] : 1985 Provider: CARROLL munoz Age/Sex: 39/F [place] [facility] [place]: Signed Intake Vital Signs 07/28/24 09:50 09/27/24 10:22 10/25/24 10:15 Height 5 ft 10 in 5 ft 10 in 5 ft 10 in Weight: 236 lb 2 oz BMI 33.8 BP 122/70 H Intake Visit Reasons: 22wk ob Chief Complaint: 22 Week OB Drying Oven Tender Required: No Is patient in pain?: No Allergies avocado (avacado) Allergy (Intermediate, Verified 10/25/24 10:17) Swelling of tongue Medications ???Medication ???Instructions ???Recorded ???Confirmed ???Type mv-mn 110-FA 180 mcg-om3 35 mg-dha tab PO DAILY 07/23/24 10/25/24 H istory 25 mg-epa 5 mg-fish oil chew tablet valacyclovir 500 mg tablet 500 mg PO BID PRN Check with 07/2310/25/24 History (Valtrex) primary doctor sertraline 50 mg tablet (Zoloft) 50 mg PO QDAY #30 tabs 07/28/24 Rx flash glucose scanning reader #1 ea 08/31/24 10/25/24 Rx (FreeStyle Todd 2 [place]) flash glucose sensor (FreeStyle #1 ea 08/31/24 10/25/24 Rx Todd 2 Sensor kit) metformin 500 mg tablet 500 mg PO .COMPLEX 10/08/24 History Last Menstrual Period: 05/28/24 Zika: Zika virus screening: Negative : No PFSH PFSH Medical History Varicose veins of both lower extremities Seasonal allergies Normal vaginal delivery Superficial varicosities Depression Gestational diabetes PCOS (polycystic ovarian syndrome) Genital herpes affecting Surgical History History of tonsillectomy Family History Aunt Breast cancer, Onset Age: 40 Maternal- unknown if genetic testing was done. 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 occupational exposures/hazards: No pets and animals: Yes pets and animals: dog(s) history of recent travel: Yes (- June) out of state: Yes out of country: No sexually active: Yes Smoking Status: Never smoker second hand exposure: No alcohol intake: current alcohol intake frequency: holidays/special occasions only details: not while substance use type: does not use well-balanced diet: daily or most days caffeine: No eating out: 1-3 times/week during the past year weight has: increased > 10 lbs what type of physical activity do you participate in: other details: crossfit frequency: 1-2 times per week duration: 45-60 minutes/day amanda/latter-day: Scientologist seatbelt use: always do you feel safe at home: Yes additional social history: - Farzad History 3 Elective abortions Hx Para 2 Spontaneous abortions Hx # Term Pregnancies Ectopic pregnancies Hx # Pregnancies Multiple births # of living children 2 Past Pregnancies Del. Date Name GA/Weeks Outcome Route Bth Weight Gen Labor Lgth Anesthesia Del Locatn Provider FOB 08/26/18 Jennifer 40 live - full term 9lbs Female 16 hours none [facility] Radha Panda 10/24/20 [place] 39 live - full term 8#10oz Male epidural [facility] Dr Aroldo Panda Delivery Date: 08/26/18 Last Updated by: Pauline Tay 3rd degree laceration; NICU for possible NEC- she did not have HPI 22wk ob Details: BRITTANY ROCA is a 39 year old who presents for routine OB visit. OB Visit ISIDRA Calculator Estimated Delivery Date Method Current WG Current Estimate 03/04/25 LMP (Certain) 21w 3d Other Estimates 03/10/25 Ultrasound #1 20w 4d 03/04/25 Ultrasound #2 21w 3d Initial Weight: Not Recorded Date -???-???-???-???-?? ?-???-???-???-???-? ??-???-???- EGA Weight BP Urine Prot -???-???-???-???-?? ?-???-???-???-???-? ??-???-???- Glucose FHR FuHt Pres Dilation -???-???-???-???-?? ?-???-???-???-???-? ??-???-???- Effaced St Visit Note 07/28/24 -???-???-???-???-?? ?-???-???-???-???-? ??-???-???- 8w 5d 233 lb 2 oz 129/79 -???-???-???-???-?? ?-???-???-???-???-? ??-???-???- 170 -???-???-???-???-?? ?-???-???-???-???-? ??-???-???- SM- CRL 1.4 not cons with LMP 08/13/24 -???-???-???-???-?? ?-???-???-???-???-? ??-???-???- 11w 0d Negative -???-???-???-???-?? ?-???-???-???-???-? ??-???-???- Negative -???-???-???-???-?? ?-???-???-???-???-? ??-???-???- nurse visit (more content not included)... Normal [facility] Urine Cultureon 09-28-2024 URC Mixed Gram Pos Gram Neg Org Reading Count 25,000-50,000 MIXC Mixed contaminants. Submit a new specimen if indicated. Normal [facility] Comment on above: Performed By: #### M 100.2200 #### [facility] [address] [place], [address] Clinical Therapist Office Visit Reporton 09-27-2024 Clinical Therapist Office Visit Report [facility] [address], [address] [place] [address] OFFICE VISIT Date of Service: 09/27/24 MR#: [id number] Acct: [id number] Name: BRITTANY ROCA Rep #: [id number] : 1985 Provider: RALPH Meier ams Age/Sex: 39/F Location[place] [facility] Status: Signed Intake Vital Signs 07/28/24 09:50 08/30/24 10:16 09/27/24 10:22 Height 5 ft 10 in 5 ft 10 in 5 ft 10 in Weight: 236 lb 6 oz BMI 33.9 BP 116/75 Intake Visit Reasons: 18wk ob Chief Complaint: 18wk ob Drying Oven Tender Required: No Is patient in pain?: No Allergies avocado (avacado) Allergy (Intermediate, Verified 09/27/24 10:20) Swelling of tongue Medications ???Medication ???Instructions ???Recorded ???Confirmed ???Type mv-mn 110-FA 180 mcg-om3 35 mg-dha tab PO DAILY 07/23/24 09/27/24 H istory 25 mg-epa 5 mg-fish oil chew tablet valacyclovir 500 mg tablet 500 mg PO BID PRN Check with 07/2309/27/24 History (Valtrex) primary doctor sertraline 50 mg tablet (Zoloft) 50 mg PO QDAY #30 tabs 07/28/24 Rx flash glucose scanning reader #1 ea 08/31/24 Rx (FreeStyle Todd 2 [place]) flash glucose sensor (FreeStyle #1 ea 08/31/24 Rx Todd 2 Sensor kit) metformin 500 mg tablet 500 mg PO .COMPLEX 09/27/24 Histo ry Last Menstrual Period: 05/28/24 : No PFSH PFSH Medical History Varicose veins of both lower extremities Seasonal allergies Normal vaginal delivery Superficial varicosities Depression Gestational diabetes PCOS (polycystic ovarian syndrome) Genital herpes affecting Surgical History History of tonsillectomy Family History Aunt Breast cancer, Onset Age: 40 Maternal- unknown if genetic testing was done. 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 occupational exposures/hazards: No pets and animals: Yes pets and animals: dog(s) history of recent travel: Yes (- June) out of state: Yes out of country: No sexually active: Yes Smoking Status: Never smoker second hand exposure: No alcohol intake: current alcohol intake frequency: holidays/special occasions only details: not while substance use type: does not use well-balanced diet: daily or most days caffeine: No eating out: 1-3 times/week during the past year weight has: increased > 10 lbs what type of physical activity do you participate in: other details: crossfit frequency: 1-2 times per week duration: 45-60 minutes/day amanda/latter-day: Scientologist seatbelt use: always do you feel safe at home: Yes additional social history: - [place]z[employer] History 3 Elective abortions Hx Para 2 Spontaneous abortions Hx # Term Pregnancies Ectopic pregnancies Hx # Pregnancies Multiple births # of living children 2 Past Pregnancies Del. Date Name GA/Weeks Outcome Route Bth Weight Infant Gen Labor Lgth Anesthesia Del Locatn Provider FOB 08/26/18 [place] 40 live - full term 9lbs Female 16 hours none [facility] E Nieves Panda 10/24/20 Ale[place] 39 live - full term 8#10oz Male epidural [facility] Dr Aroldo Panda Delivery Date: 08/26/18 Last Updated by: Pauline Tay 3rd degree laceration; NICU for possible NEC- she did not have HPI 18wk ob Details: BRITTANY ROCA is a 39 year old who presents for routine OB visit. OB Visit ISIDRA Calculator Estimated Delivery Date Method Current WG Current Estimate 03/04/25 LMP (Certain) 17w 3d Other Estimates 03/10/25 Ultrasound #1 16w 4d 03/04/25 Ultrasound #2 17w 3d Initial Weight: Not Recorded Date -???-???-???-???-?? ?-???-???-???-???-? ??-???-???- EGA Weight BP Urine Prot -???-???-???-???-?? ?-???-???-???-???-? ??-???-???- Glucose FHR FuHt Pres Dilation -???-???-???-???-?? ?-???-???-???-???-? ??-???-???- Effaced St Visit Note 07/28/24 -???-???-???-???-?? ?-???-???-???-???-? ??-???-???- 8w 5d 233 lb 2 oz 129/79 -???-???-???-???-?? ?-???-???-???-???-? ??-???-???- 170 -???-???-???-???-?? ?-???-???-???-???-? ??-???-???- SM- CRL 1.4 not cons with LMP 08/13/24 -???-???-???-???-?? ?-???-???-???-???-? ??-???-???- 11w 0d Negative -???-???-???-???-?? ?-???-???-???-???-? ??-???-???- Negative -???-???-???-???-?? ?-???-???-???-???-? ??-???-???- nurse visit for UTI sx. culture sent and rx for atb sent due to sx. 08/30/24 -???-???-???-???-?? ?-?? (more content not included)... Normal [facility] Urine cultureOrdered By: Srini Torres on 09-27-2024 Bacteria identified Cx Nom (U) Mixed Gram Pos & Gram Neg Org Abnormal [facility] Gestational GTT 3HR 100gon 0 09-08-2024 GEST GTT 100gm Normal [facility] Comment on above: Order Comment: Y Result Comment: FAST ING 89 Col: 09/08/24 1023 GLUCOSE TOLERANCE TEST FOR Reference Interval GESTATIONAL DIABETES Fasting <105 mg/dL 1 hour <190 mg/dl 2 hour <165 mg/dl 3 hour <145 mg/dl 1 HR GLU 169 Col: 09/08/24 1206 2 HR GLU 143 Col: 09/08/24 1305 3 HR GLU 126 Col: 09/08/24 1407 Performed By: #### L 500.4710 ####[facility] [id number] [place], [place], [id number] Quantitative serum or plasma 3 hour gestational glucose tolerance panelOrdered By: Holly Spear on 09-08-2024 Glucose tolerance 3 hours gestational panel See comment [facility] Comment on above: FASTING 89 Col: 08/13 12/06 1023GLUCOSE TOLERANCE TEST FOR Reference Interval GESTATIONAL DIABETES Fasting <105 mg/dL 1 hour <190 mg/dl 2 hour <165 mg/dl 3 hour <145 mg/dl 1 HR GLU 169 Col: 09/08/24 1206 2 HR GLU 143 Col: 09/08/24 1305 3 HR GLU 126 Col: 09/08/24 1407 Urine Cultureon 09-01-2024 URC Below infection level. Mixed Gram Positive Organisms Reading Count 1000-10,000 MIXC Mixed contaminants. Submit a new specimen if indicated. Normal [facility] Comment on above: Performed By: #### M 100.2201 #### [facility] [address] [place], [place], [address] Absolute lymphocyte countOrd ered By: Holly Spear on 08-30-2024 Lymphocytes Auto (Unsp spec) [#/Vol] 1.82 10*3/uL 0.83-4.51 [facility] Absolute neutrophil countOrd ered By: Holly Spear on 08-30-2024 Neutrophils (Bld) [#/Vol] 5.4 10*3/uL 2.0-7.7 [facility] Automated lymphocyte count a s percentage of total leukocytesOrdered By: Holly Spear on 08-30-2024 Lymphocytes/100 WBC Auto (Unsp spec) 23.8 % 19-41 [facility] Basophil percentageOrdered B y: Holly Spear on 08-30-2024 Basophils/100 WBC (Bld) 0.5 % 0-1 [facility] CBC W/Diff, Automatedon 08-12 Absolute Lymph 1.82 X10 3/uL Normal 0.83-4.51 [facility] Comment on above: Performed By: #### L 501.9985, L3890.6102, L3890.6006, L509.8002, BTS, L509.4006, L100.0100, L3890.6301 #### [facility] [address] [place], [address] Absolute Neut 5.4 X10 3/uL Normal 2.0-7.7 [facility] Comment on above: Performed By: #### L 501.9985, L3890.6102, L3890.6006, L509.8002, BTS, L509.4006, L100.0100, L3890.6301 #### [facility] [address] [place], [address] Basophils/100 WBC (Bld) 0.5 % Normal 0-1 [facility] Comment on above: Performed By: #### L 501.9985, L3890.6102, L3890.6006, L509.8002, BTS, L509.4006, L100.0100, L3890.6301 #### [facility] [address] [place], [address] Eosinophils/100 WBC (Bld) 0.4 % Normal 0-5 [facility] Comment on above: Performed By: #### L 501.9985, L3890.6102, L3890.6006, L509.8002, BTS, L509.4006, L100.0100, L3890.6301 #### [facility] [address] [place], [address] Erythrocyte distribution width (RBC) [Ratio] 13.2 % Normal 11.6-14.6 [facility] Comment on above: Performed By: #### L 501.9985, L3890.6102, L3890.6006, L509.8002, BTS, L509.4006, L100.0100, L3890.6301 #### [facility] [address] [place], [address] Hematocrit (Bld) [Volume fraction] 35.8 % Low 37-47 [facility] Comment on above: Performed By: #### L 501.9985, L3890.6102, L3890.6006, L509.8002, BTS, L509.4006, L100.0100, L3890.6301 #### [facility] [address] [place], [address] Hemoglobin (Bld) [Mass/Vol] 12.2 g/dL Normal 12.0-15.0 [facility] Comment on above: Performed By: #### L 501.9985, L3890.6102, L3890.6006, L509.8002, BTS, L509.4006, L100.0100, L3890.6301 #### [facility] [address] [place], [address] IG% 0.300 Normal 0.0-0.9 [facility] Comment on above: Result Comment: IG% - Immature Granulocytes (promyelocytes, myelocytes and metamyelocytes) > 1% indicates that a LEFT SHIFT is Present. Performed By: #### L 501.9985, L3890.6102, L3890.6006, L509.8002, BTS, L509.4006, L100.0100, L3890.6301 #### [facility] [address] [place], [address] Lymphocytes/100 WBC (Bld) 23.8 % Normal 19-41 [facility] Comment on above: Performed By: #### L 501.9985, L3890.6102, L3890.6006, L509.8002, BTS, L509.4006, L100.0100, L3890.6301 #### [facility] [address] [place], [address] MCH (RBC) [Entitic mass] 31.6 pg Normal 27.0-32.0 [facility] Comment on above: Performed By: #### L 501.9985, L3890.6102, L3890.6006, L509.8002, BTS, L509.4006, L100.0100, L3890.6301 #### [facility] [address] [place], [address] MCHC (RBC) [Mass/Vol] 34.1 g/dL Normal 32-36 [facility] Comment on above: Performed By: #### L 501.9985, L3890.6102, L3890.6006, L509.8002, BTS, L509.4006, L100.0100, L3890.6301 #### [facility] [address] [facility] [place], [address] MCV (RBC) [Entitic vol] 92.7 fL Normal 81-99 [facility] Comment on above: Performed By: #### L 501.9985, L3890.6102, L3890.6006, L509.8002, BTS, L509.4006, L100.0100, L3890.6301 #### [facility] [address] [facility] [place], [address] Monocytes/100 WBC (Bld) 5.0 % Normal 0-10 [facility] Comment on above: Performed By: #### L 501.9985, L3890.6102, L3890.6006, L509.8002, BTS, L509.4006, L100.0100, L3890.6301 #### [facility] [address] [place], [address] Neutrophils/100 WBC (Bld) 70.0 % Normal 47-70 [facility] Comment on above: Performed By: #### L 501.9985, L3890.6102, L3890.6006, L509.8002, BTS, L509.4006, L100.0100, L3890.6301 #### [facility] [address] [place], [address] Nucleated RBC (Bld) [#/Vol] 0 10*3/uL Normal 0-5 [facility] Comment on above: Performed By: #### L 501.9985, L3890.6102, L3890.6006, L509.8002, BTS, L509.4006, L100.0100, L3890.6301 #### [facility] [address] [place], [address] Platelet mean volume (Bld) [Entitic vol] 11.7 fL Normal 6.2-12.0 [facility] Comment on above: Performed By: #### L 501.9985, L3890.6102, L3890.6006, L509.8002, BTS, L509.4006, L100.0100, L3890.6301 #### [facility] [address] [place], [address] Platelets (Bld) [#/Vol] 258 10*3/uL Normal 150-450 [facility] Comment on above: Performed By: #### L 501.9985, L3890.6102, L3890.6006, L509.8002, BTS, L509.4006, L100.0100, L3890.6301 #### [facility] [address] [place], [address] RBC (Bld) [#/Vol] 3.86 10*6/uL Low 4.2-5.4 [facility] Comment on above: Performed By: #### L 501.9985, L3890.6102, L3890.6006, L509.8002, BTS, L509.4006, L100.0100, L3890.6301 #### [facility] [address] [place], [address] RDW SD 44.9 fl High 35.1-43.9 [facility] Comment on above: Performed By: #### L 501.9985, L3890.6102, L3890.6006, L509.8002, BTS, L509.4006, L100.0100, L3890.6301 #### [facility] [address] [place], [address] WBC (Bld) [#/Vol] 7.7 10*3/uL Normal 4.4-11.0 [facility] Comment on above: Performed By: #### L 501.9985, L3890.6102, L3890.6006, L509.8002, BTS, L509.4006, L100.0100, L3890.6301 #### [facility] [address] [facility] [place], [address] Eosinophil percentageOrdered By: Holly Spear on 08-30-2024 Eosinophils/100 WBC (Bld) 0.4 % 0-5 [facility] Erythrocyte distribution wid th ratioOrdered By: Holly Spear on 08-30-2024 Erythrocyte distribution width (RBC) [Ratio] 13.2 % 11.6-14.6 [facility] Erythrocyte distribution wid th standard deviationOrdered By: Holly Spear on 08-30-2024 Erythrocyte distribution width (RBC) [Ratio] 44.9 fl High 35.1-43.9 [facility] HIVon 08-30-2024 HIV Non-Reactive Normal Nonreactive [facility] Comment on above: Result Comment: Non- Reactive Reactive Repeatedly reactive samples must be confirmed according to CDC recommended confirmatory algorithms. The subresults for either HIVAG or AHIV can be used as an aid in the selection of the confirmation algorithm for reactive samples. Send out specimens with Reactive results to [facility] for confirmation. Order the HIV antibody detection and differentiation: lc#[id number] Performed By: #### L 501.9985, L3890.6102, L3890.6006, L509.8002, BTS, L509.4006, L100.0100, L3890.6301 ####[facility] [address] [place], [place], [address] Hematocrit Auto (Bld) [Volum e fraction]Ordered By: Holly Riversmeredith on 08-30-2024 Hematocrit (Bld) [Volume fraction] 35.8 % Low 37-47 [facility] Hemoglobin A1con 08-30-2024 HbA1c (Bld) [Mass fraction] 5.8 % High <=5.6 [facility] Comment on above: Result Comment: Norm al < 5.7 % Prediabetic 5.7 - 6.4 % Diabetic >or= 6.5 % Please note range changes. Performed By: #### L 501.9985, L3890.6102, L3890.6006, L509.8002, BTS, L509.4006, L100.0100, L3890.6301 ####[facility] [address] [place], [place], [id number] Hemoglobin A1c percentageOrd ered By: Holly Brashermadelyn on 08-30-2024 HbA1c (Bld) [Mass fraction] 5.8 % High <5.7 [facility] Comment on above: Normal < 5.7 % Predi abetic 5.7 - 6.4 % Diabetic >or= 6.5 % Please note range changes. Hemoglobin measurementOrdere d By: Hollyneftali Brashermadelyn on 08-30-2024 Hemoglobin (Bld) [Mass/Vol] 12.2 g/dL 12.0-15.0 [facility] Hepatitis C Antibodyon 08-30 Hepatitis C Ab Non-Reactive Normal Nonreactive [facility] Comment on above: Result Comment: Reac tive: Presumptive evidence of antibodies to HCV. Follow CDC recommendations for supplemental testing. Non-Reactive: Antibodies to HCV were not detected; does not exclude the possibility of exposure to HCV Reactive Results are presumptive evidence of antibodies to HCV. Follow CDC recommendations for supplemental testing. Order confirmation testing: HCV Quant by PCR testing - HCVPCR #[id number] Non Reactive: < 0.8 Equivocal: >/= 0.8 to < 1.0 Reactive: >/= 1.0 The CDC requires that a reactive/equivocal HCV antibody result be sent out for confirmation. HCV Quant by PCR testing. Performed By: #### L 501.9985, L3890.6102, L3890.6006, L509.8002, BTS, L509.4006, L100.0100, L3890.6301 ####[facility] [address] [place], [place], [id number] Immature granulocytes/100 WB C Auto (Bld)Ordered By: Holly Spear on 08-30-2024 Immature granulocytes/100 WBC (Bld) 0.300 % 0.0-0.9 [facility] Comment on above: IG% - Immature Granu locytes (promyelocytes, myelocytes and metamyelocytes) > 1% indicates that a LEFT SHIFT is Present. L3890.6102on 08-30-2024 HEP B Surf Ag Non-Reactive Normal Nonreactive [facility] Comment on above: Result Comment: Reac tive: Presumptive evidence of HBV. Repeatedly reactive samples must be confirmed using a neutralization test ([employer] HBsAg Confirmatory Test) Non-Reactive: HBsAg not detected; does not exclude the possibility of exposure to HBV Performed By: #### L 501.9985, L3890.6102, L3890.6006, L509.8002, BTS, L509.4006, L100.0100, L3890.6301 ####[facility] [address] [place], [place], [address] L509.4006on 08-30-2024 Rubella IgG REAC Normal Nonreactive [facility] Comment on above: Result Comment: Anti body Result: Interpretation Non-Reactive: Non-Immune Reactive: Immune The following results were obtained with the [employer] Rubella IgG assay. Results from assays of other manufacturers cannot be used interchangeably. Performed By: #### L 501.9985, L3890.6102, L3890.6006, L509.8002, BTS, L509.4006, L100.0100, L3890.6301 ####[facility] [address] [place], [address] Laboratory - Chemistry and C hemistry - challengeOrdered By: Sarah Sharma on 08-30-2024 Glucose Ql (U) Negative [facility] - Microbiology an d Antimicrobial susceptibilityOrdered By: Holly Spear on 08-30-2024 HBV surface Ag Ql (S) Non-Reactive Nonreactive [facility] Comment on above: Reactive: Presumptiv e evidence of HBV. Repeatedly reactive samples must be confirmed using a neutralization test ([employer] HBsAg Confirmatory Test)Non-Reactive: HBsAg not detected; does not exclude the possibility of exposure to HBV Laboratory - UrinalysisOrder ed By: Sarah Sharma on 08-30-2024 Protein Ql (U) Negative [facility] MCV (mean corpuscular volume ) determinationOrdered By: Holly Spear on 08-30-2024 MCV (RBC) [Entitic vol] 92.7 fL 81-99 [facility] Mean corpuscular hemoglobin (MCH) determinationOrdered By: Holly Spear on 08-30-2024 MCH (RBC) [Entitic mass] 31.6 pg 27.0-32.0 [facility] Mean corpuscular hemoglobin concentration (MCHC) determinationOrdered By: Holly Spear on 08-30-2024 MCHC (RBC) [Mass/Vol] 34.1 g/dL 32-36 [facility] Mean platelet volume determi nationOrdered By: Holly Spear on 08-30-2024 Platelet mean volume (Bld) [Entitic vol] 11.7 fL 6.2-12.0 [facility] Monocyte percentageOrdered B y: Holly Spear on 08-30-2024 Monocytes/100 WBC (Bld) 5.0 % 0-10 [facility] Neutrophil percentageOrdered By: Holly pSear on 08-30-2024 Neutrophils/100 WBC (Bld) 70.0 % 47-70 [facility] No Panel InformationOrdered By: Holly Spear on 08-30-2024 HIV (1&2) Antibody Non-Reactive Nonreactive [facility] Comment on above: Non-ReactiveReactive Repeatedly reactive samples must be confirmed according to CDC recommended confirmatory algorithms. The subresults for either HIVAG or AHIV can be used as an aid in the selection of the confirmation algorithm for reactive samples.Send out specimens with Reactive results to [facility] for confirmation.Order the HIV antibody detection and differentiation: #[id number] Nucleated red blood cell per centageOrdered By: Holly Spear on 08-30-2024 Nucleated RBC/100 WBC (Bld) [Ratio] 0 % 0-5 [facility] Clinical Therapist Office Visit Reporton 08-30-2024 Clinical Therapist Office Visit Report [facility] [address], [address] [place] [address] OFFICE VISIT Date of Service: 08/30/24 MR#: [id number] Acct: [id number] Name: BRITTANY ROCA Rep #: [id number] : 1985 Provider: Dr. Sarah Ortiz DO Age/Sex: 39/F [place] [facility] [place]: Signed Intake Vital Signs 12/04/20 10:15 08/13/24 09:13 08/30/24 10:15 08/30/24 10:16 Height 5 ft 10 in 5 ft 10 in 5 ft 10 in 5 ft 10 in Weight: 234 lb 6 oz BMI 33.6 BP 115/73 Intake Visit Reasons: 14wk ob Drying Oven Tender Required: No Is patient in pain?: No Allergies avocado (avacado) Allergy (Intermediate, Verified 08/30/24 10:15) Swelling of tongue Medications ???Medication ???Instructions ???Recorded ???Confirmed ???Type mv-mn 110-FA 180 mcg-om3 35 mg-dha tab PO DAILY 07/23/24 08/30/24 H istory 25 mg-epa 5 mg-fish oil chew tablet valacyclovir 500 mg tablet 500 mg PO BID PRN Check with 07/2308/30/24 History (Valtrex) primary doctor sertraline 50 mg tablet (Zoloft) 50 mg PO QDAY #30 tabs 07/28/24 Rx metformin 500 mg tablet 500 mg PO .COMPLEX #60 tabs 08/30/24 Rx fosfomycin tromethamine 3 gram 3 g PO ONCE #1 ea 08/13/24 5 Rx oral packet Last Menstrual Period: 05/28/24 Zika: Zika virus screening: Negative : No PFSH PFSH Medical History Varicose veins of both lower extremities Seasonal allergies Normal vaginal delivery Superficial varicosities Depression Gestational diabetes PCOS (polycystic ovarian syndrome) Genital herpes affecting Surgical History History of tonsillectomy Family History Aunt Breast cancer, Onset Age: 40 Maternal- unknown if genetic testing was done. 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 occupational exposures/hazards: No pets and animals: Yes pets and animals: dog(s) history of recent travel: Yes (- June) out of state: Yes out of country: No sexually active: Yes Smoking Status: Never smoker second hand exposure: No alcohol intake: current alcohol intake frequency: holidays/special occasions only details: not while substance use type: does not use well-balanced diet: daily or most days caffeine: No eating out: 1-3 times/week during the past year weight has: increased > 10 lbs what type of physical activity do you participate in: other details: crossfit frequency: 1-2 times per week duration: 45-60 minutes/day amanda/latter-day: Scientologist seatbelt use: always do you feel safe at home: Yes additional social history: - Farzad History 3 Elective abortions Hx Para 2 Spontaneous abortions Hx # Term Pregnancies Ectopic pregnancies Hx # Pregnancies Multiple births # of living children 2 Past Pregnancies Del. Date Name GA/Weeks Outcome Route Bth Weight Infant Gen Labor Lgth Anesthesia Del Locatn Provider KARAN 08/26/18 Jennifer 40 live - full term 9lbs Female 16 hours none [facility] Radha Panda 10/24/20 Aleksander 39 live - full term 8#10oz Male epidural [facility] Dr Aroldo Panda Delivery Date: 08/26/18 Last Updated by: Pauline Tay 3rd degree laceration; NICU for possible NEC- she did not have HPI 14wk ob Details: BRITTANY ROCA is a 39 year old who presents for routine OB visit. OB Visit ISIDRA Calculator Estimated Delivery Date Method Current WG Current Estimate 03/04/25 LMP (Certain) 13w 3d Other Estimates 03/10/25 Ultrasound #1 12w 4d 03/04/25 Ultrasound #2 13w 3d Initial Weight: Not Recorded Date -???-???-???-???-?? ?-???-???-???-???-? ??-???-???- EGA Weight BP Urine Prot -???-???-???-???-?? ?-???-???-???-???-? ??-???-???- Glucose FHR FuHt Pres Dilation -???-???-???-???-?? ?-???-???-???-???-? ??-???-???- Effaced St Visit Note 07/28/24 -???-???-???-???-?? ?-???-???-???-???-? ??-???-???- 8w 5d 233 lb 2 oz 129/79 -???-???-???-???-?? ?-???-???-???-???-? ??-???-???- 170 -???-???-???-???-?? ?-???-???-???-???-? ??-???-???- SM- CRL 1.4 not cons with LMP 08/13/24 -???-???-???-???-?? ?-???-???-???-???-? ??-???-???- 11w 0d Negative -???-???-???-???-?? ?-???-???-???-???-? ??-???-???- Negative -???-???-???-???-?? ?-???-???-???-???-? ??-???-???- nurse visit for UTI sx. culture sent and rx for atb sent due to sx. 08/30/24 -???-???-? (more content not included)... Normal [facility] Platelet countOrdered By: Isaiah Spear on 08-30-2024 Platelets (Bld) [#/Vol] 258 10*3/uL 150-450 [facility] RBC Auto (Bld) [#/Vol]Ordere d By: Holly Spear on 08-30-2024 RBC (Bld) [#/Vol] 3.86 10*6/uL Low 4.2-5.4 [facility] Syphilis Antibodieson 2024 Syphilis Abs Non-Reactive Normal Nonreactive [facility] Comment on above: Performed By: #### L 501.9985, L3890.6102, L3890.6006, L509.8002, BTS, L509.4006, L100.0100, L3890.6301 ####[facility] [address] [place], [address] Type AND Screenon 08-30-2024 Ab SCREEN GEL Negative Normal [facility] Comment on above: Order Comment: PN Performed By: #### L 501.9985, L3890.6102, L3890.6006, L509.8002, BTS, L509.4006, L100.0100, L3890.6301 ####[facility] [address] [place], [address] Urine cultureOrdered By: Stephanie Sharma on 08-30-2024 Bacteria identified Cx Nom (U) Positive Abnormal [facility] White blood cell (WBC) count Ordered By: Holly Spear on 08-30-2024 WBC (Bld) [#/Vol] 7.7 10*3/uL 4.4-11.0 [facility] Urine Cultureon 08-15-2024 URC Below infection level. Mixed Gram Positive Organisms Reading Count 1000-10,000 MIXC Mixed contaminants. Submit a new specimen if indicated. Normal [facility] Comment on above: Performed By: #### M 100.2200 #### [facility] [address] [place], [place], [id number] Laboratory - Chemistry and C hemistry - challengeOrdered By: Alycia Torres on 08-13-2024 Bilirubin Ql (U) Negative [facility] Glucose Ql (U) Negative [facility] Ketones Ql (U) Negative [facility] pH (U) 7 [pH] [facility] Specific gravity (U) [Rel density] 1.015 [facility] Urobilinogen (U) [Mass/Vol] Negative [facility] - Hematology and Cell countsOrdered By: Alycia Torres on 08-13-2024 Hemoglobin Ql (U) Negative [facility] - Specimen inform ationOrdered By: Alycia Torres on 08-13-2024 Clarity (U) Clear [facility] Color (U) Yellow [facility] - UrinalysisOrder ed By: Alycia Torres on 08-13-2024 Nitrite Ql (U) Negative [facility] Protein Ql (U) Negative [facility] No Panel InformationOrdered By: Alycia Torres on 08-13-2024 Urine Leukocytes Negatve [facility] Urine Non-Hemolyzed Blood [facility] Clinical Therapist Office Visit Reporton 08-13-2024 Clinical Therapist Office Visit Report [facility] [address], [address] [place] [address] OFFICE VISIT Date of Service: 08/13/24 MR#: [id number] Acct: [id number] Name: BRITTANY ROCA Rep #: [id number] : 1985 Provider: RALPH Meier ams Age/Sex: 39/F Location[place] [facility] Status: Signed Intake Vital Signs 07/28/24 09:50 08/12/24 15:49 08/13/24 09:13 Height 5 ft 10 in 5 ft 10 in 5 ft 10 in Intake Visit Reasons: Urine sample *possible UTI Drying Oven Tender Required: No Is patient in pain?: No Allergies avocado (avacado) Allergy (Intermediate, Verified 08/13/24 09:11) Swelling of tongue Medications ???Medication ???Instructions ???Recorded ???Confirmed ???Type PNV 178-FA 180 mcg-om3 35 mg-dha tab PO DAILY 07/23/24 08/13/24 His tory 25 mg-epa 5 mg-fish oil chew tablet valacyclovir 500 mg tablet 500 mg PO BID PRN Check with 07/2308/13/24 History (Valtrex) primary doctor sertraline 50 mg tablet (Zoloft) 50 mg PO QDAY #30 tabs 07/28/24 Rx metformin 500 mg tablet 500 mg PO .COMPLEX #60 tabs 08/13/24 Rx fosfomycin tromethamine 3 gram 3 g PO ONCE #1 ea 08/13/24 5 Rx oral packet Last Menstrual Period: 05/28/24 Zika: Zika virus screening: Negative : No Have you fallen in the past year?: No Nurse's Note: pt having vaginal burning and urine frequency - urine dip was negative. PFSH PFSH Medical History Varicose veins of both lower extremities Seasonal allergies Normal vaginal delivery Superficial varicosities Depression Gestational diabetes PCOS (polycystic ovarian syndrome) Genital herpes affecting Surgical History History of tonsillectomy Family History Aunt Breast cancer, Onset Age: 40 Maternal- unknown if genetic testing was done. 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 occupational exposures/hazards: No pets and animals: Yes pets and animals: dog(s) history of recent travel: Yes (- June) out of state: Yes out of country: No sexually active: Yes Smoking Status: Never smoker second hand exposure: No alcohol intake: current alcohol intake frequency: holidays/special occasions only details: not while substance use type: does not use well-balanced diet: daily or most days caffeine: No eating out: 1-3 times/week during the past year weight has: increased > 10 lbs what type of physical activity do you participate in: other details: crossfit frequency: 1-2 times per week duration: 45-60 minutes/day amanda/latter-day: Scientologist seatbelt use: always do you feel safe at home: Yes additional social history: - Farzad History 3 Elective abortions Hx Para 2 Spontaneous abortions Hx # Term Pregnancies Ectopic pregnancies Hx # Pregnancies Multiple births # of living children 2 Past Pregnancies Del. Date Name GA/Weeks Outcome Route Bth Weight Gen Labor Lgth Anesthesia Del Locatn Provider FOB 08/26/18 Jennifer 40 live - full term 9lbs Female 16 hours none [facility] Radha Panda 10/24/20 Aleksander 39 live - full term 8#10oz Male epidural [facility] Dr Aroldo Panda Delivery Date: 08/26/18 Last Updated by: Pauline Tay 3rd degree laceration; NICU for possible NEC- she did not have HPI Urine sample *possible UTI Details: BRITTANY ROCA is a 39 year old who presents for routine OB visit. OB Visit ISIDRA Calculator Estimated Delivery Date Method Current WG Current Estimate 03/04/25 LMP (Certain) 11w 0d Initial Weight: Not Recorded Date -???-???-???-???-?? ?-???-???-???-???-? ??-???-???- EGA Weight BP Urine Prot -???-???-???-???-?? ?-???-???-???-???-? ??-???-???- Glucose FHR FuHt Pres Dilation -???-???-???-???-?? ?-???-???-???-???-? ??-???-???- Effaced St Visit Note 07/28/24 -???-???-???-???-?? ?-???-???-???-???-? ??-???-???- 8w 5d 233 lb 2 oz 129/79 -???-???-???-???-?? ?-???-???-???-???-? ??-???-???- 170 -???-???-???-???-?? ?-???-???-???-???-? ??-???-???- SM- CRL 1.4 not cons with LMP 08/13/24 -???-???-???-???-?? ?-???-???-???-???-? ??-???-???- 11w 0d Negative -???-???-???-???-?? ?-???-???-???-???-? ??-???-???- Negative -???-???-???-???-?? ?-???-???-???-???-? ??-???-???- nurse visit for UTI sx. culture sent and rx for atb sent due to sx. ACOG First Trimester First Trimester (more content not included)... Normal [facility] Urine cultureOrdered By: Srini Torres on 08-13-2024 Bacteria identified Cx Nom (U) Positive Abnormal [facility] Urine Cultureon 07-31-2024 URC #2 Below infection level. Enterococcus faecalis Reading Count >100,000 GNR lactose manager telemetry GNR lactose manager telemetry Enterococcus faecalis: REACTION Ampicillin Islt CAR[place] <=2 S Ciprofloxacin Islt [place] <=0.5 Gentamicin Synergy Susc Islt SYN-S S levoFLOXacin Islt [place] 0.5 S Linezolid Islt [place] 2 S Nitrofurantoin Islt [place] <=16 S Streptomycin High Pot Susc Islt SYN-S S Tetracycline Islt [place] >=16 R Vancomycin Islt [place] 1 S Normal [facility] Comment on above: Performed By: #### M 100.2200, L7000.1800 #### [facility] [address] [place], [address] Chlamydia/GC PAU aptimaon CHLAMY,NUC ACID Negative Normal Negative [facility] Comment on above: Performed By: #### M 100.2200, L7000.1800 #### [facility] [address] [place], [address] GC BY NUC ACID Negative Normal Negative [facility] Comment on above: Result Comment: Perf ormed at: =G - [facility] [id number] Tile Conduit Layer: Niecy Morrison MD, Phone: [phone] Performed By: #### M 100.2200, L7000.1800 #### [facility] [address] [place], [address] C. trachomatis rRNA PAU+prob e Ql (Unsp spec)Ordered By: Holly Spear on 07-28-2024 Chlamydia DNA (PAU) Negative Negative [facility] Chlamydia trachomatis rRNA d etection by probe and target amplification methodOrdered By: Holly Spear on 07-28-2024 C. trachomatis rRNA PAU+probe Ql (Unsp spec) Negative Negative [facility] Neisseria gonorrhoeae nuclei c acid detection by amplified probe techniqueOrdered By: Holly Spear on 07-28-2024 N. gonorrhoeae DNA PAU+probe Ql (Unsp spec) Negative Negative [facility] Comment on above: Performed at: =G - [facility] [address] [id number] Director: Niecy Morrison MD, Phone: [phone] Clinical Therapist Office Visit Reporton 07-28-2024 Clinical Therapist Office Visit Report [facility] [address] [place] [address], [address] [place] [address] OFFICE VISIT Date of Service: 07/28/24 MR#: [id number] Acct: [id number] Name: BRITTANY ROCA Rep #: [id number] : 1985 Provider: Dr. Holly sweeney MD Age/Sex: 39/F [place] [facility] [place] Status: Signed Intake Vital Signs 12/04/20 10:15 07/28/24 09:50 Height 5 ft 10 in 5 ft 10 in Weight: 233 lb 2 oz BMI 33.4 BP 129/79 H Intake Visit Reasons: New OB, LMP 05/28, ISIDRA 03/04 Chief Complaint: NOB LMP 05/28 Drying Oven Tender Required: No Is patient in pain?: No Allergies avocado (avacado) Allergy (Intermediate, Verified 07/28/24 09:53) Swelling of tongue Medications ???Medication ???Instructions ???Recorded ???Confirmed ???Type PNV 178-FA 180 mcg-om3 35 mg-dha tab PO DAILY 07/23/24 07/23/24 His tory 25 mg-epa 5 mg-fish oil chew tablet valacyclovir 500 mg tablet 500 mg PO BID PRN Check with 07/2307/23/24 History (Valtrex) primary doctor sertraline 50 mg tablet (Zoloft) 50 mg PO QDAY #30 tabs 07/28/24 Rx Last Menstrual Period: 05/28/24 Zika: Zika virus screening: Negative : No Have you fallen in the past year?: No PFSH PFSH Medical History (Updated 07/28/24 @ 10:[address] Holly Spear MD) Varicose veins of both lower extremities Seasonal allergies Normal vaginal delivery Superficial varicosities Depression Gestational diabetes PCOS (polycystic ovarian syndrome) Genital herpes affecting Surgical History History of tonsillectomy Family History Aunt Breast cancer, Onset Age: 40 Maternal- unknown if genetic testing was done. 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 current occupational exposures/hazards: No pets and animals: Yes pets and animals: dog(s) history of recent travel: Yes (- June) out of state: Yes out of country: No sexually active: Yes Smoking Status: Never smoker second hand exposure: No alcohol intake: current alcohol intake frequency: holidays/special occasions only details: not while substance use type: does not use well-balanced diet: daily or most days caffeine: No eating out: 1-3 times/week during the past year weight has: increased > 10 lbs what type of physical activity do you participate in: other details: crossfit frequency: 1-2 times per week duration: 45-60 minutes/day amanda/latter-day: Scientologist seatbelt use: always do you feel safe at home: Yes additional social history: - Farzad History 3 Elective abortions Hx Para 2 Spontaneous abortions Hx # Term Pregnancies Ectopic pregnancies Hx # Pregnancies Multiple births # of living children 2 Past Pregnancies Del. Date Name GA/Weeks Outcome Route Bth Weight Infant Gen Labor Lgth Anesthesia Del Locatn Provider FOB 08/26/18 Jennifer 40 live - full term 9lbs Female 16 hours none [facility] Radha Panda 10/24/20 Aleksander 39 live - full term 8#10oz Male epidural [facility] Dr Aroldo Panda Delivery Date: 08/26/18 Last Updated by: Pauline Tay 3rd degree laceration; NICU for possible NEC- she did not have HPI New OB, LMP 05/28, ISIDRA 03/04 Details: BRITTANY ROCA is a 39 year old who presents for New OB visit. OB Visit ISIDRA Calculator Estimated Delivery Date Method Current WG Current Estimate 03/04/25 LMP (Certain) 8w 5d Comments: HIV: Urine Culture: Sequential Screen: NIPT Screen: Estimated Due Date: 03/04/25 Initial Weight: Not Recorded Date -???-???-???-???-?? ?-???-???-???-???-? ??-???-???- EGA Weight BP Urine Prot -???-???-???-???-?? ?-???-???-???-???-? ??-???-???- Glucose FHR FuHt Pres Dilation -???-???-???-???-?? ?-???-???-???-???-? ??-???-???- Effaced St Visit Note 07/28/24 -???-???-???-???-?? ?-???-???-???-???-? ??-???-???- 8w 5d 233 lb 2 oz 129/79 -???-???-???-???-?? ?-???-???-???-???-? ??-???-???- 170 -???-???-???-???-?? ?-???-???-???-???-? ??-???-???- SM- CRL 1.4 not cons with LMP Menstrual History Last Menstrual Period: 05/28/24 Reported LMP: definite Normal amount/duration: Yes (PCOS, thought was perimenopausal) Frequency in days: 40-45 for last 6 months On hormonal BC at conception: No hCG+: 07/15/24 Antepartum Record Genetic Screening: Congenital Heart Defect: Other, Neural Tube Defect: Other, Hemoglobinopathy O (more content not included)... Normal [facility] Urine cultureOrdered By: Duke Spear on 07-28-2024 Bacteria identified Cx Nom (U) Enterococcus faecalis Abnormal [facility] Bacteria identified Cx Nom (U) GNR lactose manager telemetry Abnormal [facility] Vital Signs Date Time Vital Sign Value Performing Clinician Faci lity 02-17-2025 13:49-0500 Body height 175.[address] Karen Chacko MD Work Phone: [facility] 02-17-2025 13:49-0500 Body mass index (BMI) [Ratio] 37.4 kg/m2 Dr. Karen Chacko MD Work Phone: 4(201)869-435901 [place] [address] 02-17-2025 13:49-0500 Body weight 114.[address] Karen Chacko MD Work Phone: [facility] 02-17-2025 13:49-0500 Diastolic blood pressure 68 mm[Hg] Dr. Karen Chacko MD Work Phone: 4(581)913-256601 [place] [address] 02-17-2025 13:49-0500 Systolic blood pressure 113 mm[Hg] Dr. Karen Chacko MD Work Phone: 8(248)488-969353 [address] 02-14-2025 08:46-0500 Body mass index (BMI) [Ratio] 37 kg/m2 Dr. Karen Chacko MD Work Phone: 6(711)800-142701 [place] [address] 02-14-2025 08:46-0500 Body weight 113.[address] Karen Chacko MD Work Phone: [facility] 02-14-2025 08:46-0500 Diastolic blood pressure 76 mm[Hg] Dr. Karen Chacko MD Work Phone: [facility] 02-14-2025 08:46-0500 Systolic blood pressure 121 mm[Hg] Dr. Karen Chacko MD Work Phone: [facility] 02-10-2025 13:40-0400 Body mass index (BMI) [Ratio] 37.3 kg/m2 Dr. Karen Chacko MD Work Phone: [facility] 02-10-2025 13:40-0400 Body weight 114.[address] Karen Chacko MD Work Phone: [facility] 02-10-2025 13:40-0400 Diastolic blood pressure 84 mm[Hg] Dr. Karen Chacko MD Work Phone: 0(239)019-765001 [place] [address] 02-10-2025 13:40-0400 Systolic blood pressure 128 mm[Hg] Dr. Karen Chacko MD Work Phone: 6(849)701-283523 [place] [address] 02-07-2025 08:26-0400 Body height 175.[address] Karen Chacko MD Work Phone: 4(073)967-565823 [place] [address] 02-07-2025 08:26-0400 Body mass index (BMI) [Ratio] 37 kg/m2 Dr. Karen Chacko MD Work Phone: 1(719)745-726523 [place] [address] 02-07-2025 08:26-0400 Body weight 113.[address] Karen Chacko MD Work Phone: 6(831)677-966823 [place] [address] 02-07-2025 08:26-0400 Diastolic blood pressure 73 mm[Hg] Dr. Karen Chacko MD Work Phone: 8(441)171-998523 [place] [address] 02-07-2025 08:26-0400 Systolic blood pressure 122 mm[Hg] Dr. Karen Chacko MD Work Phone: 3(770)856-551323 [place] [address] 02-03-2025 13:38-0400 Body mass index (BMI) [Ratio] 36.8 kg/m2 Dr. Karen Chacko MD Work Phone: 7(519)167-746423 [place] [address] 02-03-2025 13:38-0400 Body weight 113.[address] Karen Chacko MD Work Phone: 1(806)247-118623 [place] [address] 02-03-2025 13:38-0400 Diastolic blood pressure 74 mm[Hg] Dr. Karen Chacko MD Work Phone: 1(309)200-095923 [place] [address] 02-03-2025 13:38-0400 Systolic blood pressure 114 mm[Hg] Dr. Karen Chacko MD Work Phone: 6(535)327-185523 [place] [address] 01-31-2025 08:41-0400 Body mass index (BMI) [Ratio] 37.2 kg/m2 Dr. Karen Chacko MD Work Phone: 5(419)064-352123 [place] [address] 01-31-2025 08:41-0400 Body weight 114.[address] Karen Chacko MD Work Phone: 3(190)716-143301 [place] [address] 01-31-2025 08:41-0400 Diastolic blood pressure 72 mm[Hg] Dr. Karen Chacko MD Work Phone: 3(154)363-529823 [place] [address] 01-31-2025 08:41-0400 Systolic blood pressure 103 mm[Hg] Dr. Karen Chacko MD Work Phone: 5(198)455-105523 [place] [address] 01-27-2025 15:11-0400 Body mass index (BMI) [Ratio] 36.7 kg/m2 Dr. Karen Chacko MD Work Phone: 2(118)542-413223 [place] [address] 01-27-2025 15:11-0400 Body weight 112.[address] Karen Chacko MD Work Phone: 7(117)650-208423 [place] [address] 01-27-2025 15:01-0400 Body temperature 97.5 [degF] Dr. Karen Chacko MD Work Phone: 8(918)390-849623 [place] [address] 01-27-2025 15:01-0400 Respiratory rate 13 /min Dr. Karen Chacko MD Work Phone: 8(508)526-724023 [place] [address] 01-27-2025 15:01-0400 SaO2% (BldA) [Mass fraction] 100 % Dr. Karen Chacko MD Work Phone: 0(470)041-563923 [place] [address] 01-27-2025 15:00-0400 Diastolic blood pressure 71 mm[Hg] Dr. Karen Chacko MD Work Phone: 6(129)505-553723 [place] [address] 01-27-2025 15:00-0400 Heart rate 86 /min Dr. Karen Chacko MD Work Phone: 2(905)525-429923 [place] [address] 01-27-2025 15:00-0400 Systolic blood pressure 118 mm[Hg] Dr. Karen Chacko MD Work Phone: 0(853)387-079023 [place] [address] 01-27-2025 14:01-0400 Body mass index (BMI) [Ratio] 35.7 kg/m2 Dr. Karen Chacko MD Work Phone: 1(866)943-779123 [place] [address] 01-27-2025 14:01-0400 Body weight 112.[address] Karen Chacko MD Work Phone: 5(227)802-176301 [place] [address] 01-27-2025 14:01-0400 Diastolic blood pressure 74 mm[Hg] Dr. Karen Chacko MD Work Phone: 7(296)505-540323 [place] [address] 01-27-2025 14:01-0400 Systolic blood pressure 113 mm[Hg] Dr. Karen Chacko MD Work Phone: 1(395)979-546223 [place] [address] 01-24-2025 10:21-0400 Body mass index (BMI) [Ratio] 35.9 kg/m2 Dr. Karen Chacko MD Work Phone: 6(894)018-552223 [place] [address] 01-24-2025 10:21-0400 Body weight 113.[address] Karen Chacko MD Work Phone: 6(898)832-633123 [place] [address] 01-24-2025 10:21-0400 Diastolic blood pressure 69 mm[Hg] Dr. Karen Chacko MD Work Phone: 8(655)756-329223 [place] [address] 01-24-2025 10:21-0400 Systolic blood pressure 103 mm[Hg] Dr. Karen Chacko MD Work Phone: 9(611)943-543123 [place] [address] 01-20-2025 14:02-0400 Body mass index (BMI) [Ratio] 35.4 kg/m2 Dr. Karen Chacko MD Work Phone: 9(241)162-650823 [place] [address] 01-20-2025 14:02-0400 Body weight 112.[address] Karen Chacko MD Work Phone: 7(120)998-345523 [place] [address] 01-20-2025 14:02-0400 Diastolic blood pressure 70 mm[Hg] Dr. Karen Chacko MD Work Phone: 0(768)503-289323 [place] [address] 01-20-2025 14:02-0400 Systolic blood pressure 112 mm[Hg] Dr. Karen Chacko MD Work Phone: 1(887)879-373223 [place] [address] 01-17-2025 09:59-0400 Body height 177.[address] Karen Chacko MD Work Phone: 5(491)237-483123 [place] [address] 01-17-2025 09:59-0400 Body mass index (BMI) [Ratio] 35.1 kg/m2 Dr. Karen Chacko MD Work Phone: 4(232)612-197823 [place] [address] 01-17-2025 09:59-0400 Body weight 110.[address] Karen Chacko MD Work Phone: 4(080)809-094623 [place] [address] 01-17-2025 09:59-0400 Diastolic blood pressure 68 mm[Hg] Dr. Karen Chacko MD Work Phone: 0(873)583-195223 [place] [address] 01-17-2025 09:59-0400 Systolic blood pressure 106 mm[Hg] Dr. Karen Chacko MD Work Phone: 6(547)330-968423 [place] [address] 01-14-2025 08:08-0400 Body height 177.[address] Karen Chacko MD Work Phone: 4(193)965-847123 [place] [address] 01-14-2025 08:08-0400 Body mass index (BMI) [Ratio] 35.4 kg/m2 Dr. Karen Chacko MD Work Phone: 3(868)581-468623 [place] [address] 01-14-2025 08:08-0400 Body weight 112.[address] Karen Chacko MD Work Phone: 1(553)778-565323 [place] [address] 01-14-2025 08:08-0400 Diastolic blood pressure 71 mm[Hg] Dr. Karen Chacko MD Work Phone: 8(835)333-269923 [place] [address] 01-14-2025 08:08-0400 Systolic blood pressure 116 mm[Hg] Dr. Karen Chacko MD Work Phone: 0(242)784-541023 [place] [address] 01-11-2025 09:01-0400 Body height 177.[address] Karen Chacko MD Work Phone: 8(990)119-337223 [place] [address] 01-11-2025 09:01-0400 Body mass index (BMI) [Ratio] 35.4 kg/m2 Dr. Karen Chacko MD Work Phone: 5(969)581-422323 [place] [address] 01-11-2025 09:01-0400 Body weight 112.[address] Karen Chacko MD Work Phone: 9(808)741-243923 [place] [address] 01-11-2025 09:01-0400 Diastolic blood pressure 67 mm[Hg] Dr. Karen Chacko MD Work Phone: 2(727)417-136101 [place] [address] 01-11-2025 09:01-0400 Systolic blood pressure 108 mm[Hg] Dr. Karen Chacko MD Work Phone: 5(876)153-281723 [place] [address] 01-06-2025 08:44-0400 Body mass index (BMI) [Ratio] 34.9 kg/m2 Dr. Karen Chacko MD Work Phone: 5(474)514-188923 [place] [address] 01-06-2025 08:44-0400 Body weight 110.[address] Karen Chacko MD Work Phone: 3(835)282-391723 [place] [address] 01-06-2025 08:44-0400 Diastolic blood pressure 65 mm[Hg] Dr. Karen Chacko MD Work Phone: 9(404)112-931523 [place] [address] 01-06-2025 08:44-0400 Systolic blood pressure 105 mm[Hg] Dr. Karen Chacko MD Work Phone: 0(021)930-014623 [place] [address] 12-28-2024 15:10-0400 Body height 177.[address] Karen Chacko MD Work Phone: 5(798)118-312523 [place] [address] 12-28-2024 15:10-0400 Body mass index (BMI) [Ratio] 34.6 kg/m2 Dr. Karen Chacko MD Work Phone: 6(170)890-420423 [place] [address] 12-28-2024 15:10-0400 Body weight 109.[address] Karen Chacko MD Work Phone: 1(578)216-932223 [place] [address] 12-28-2024 15:10-0400 Diastolic blood pressure 66 mm[Hg] Dr. Karen Chacko MD Work Phone: 6(609)902-395223 [place] [address] 12-28-2024 15:10-0400 Systolic blood pressure 102 mm[Hg] Dr. Karen Chacko MD Work Phone: 4(627)114-396923 [place] [address] 12-22-2024 14:07-0400 Body height 177.[address] Karen Chacko MD Work Phone: 8(195)750-219423 [place] [address] 12-22-2024 14:07-0400 Body mass index (BMI) [Ratio] 34.6 kg/m2 Dr. Karen Chacko MD Work Phone: 7(335)294-728423 [place] [address] 12-22-2024 14:07-0400 Body weight 109.[address] Karen Chacko MD Work Phone: 3(711)386-673823 [place] [address] 12-22-2024 14:07-0400 Diastolic blood pressure 79 mm[Hg] Dr. Karen Chacko MD Work Phone: 0(416)662-458823 [place] [address] 12-22-2024 14:07-0400 Systolic blood pressure 113 mm[Hg] Dr. Karen Chacko MD Work Phone: 9(114)329-826823 [place] [address] 11-25-2024 09:54-0400 Body height 177.[address] Karen Chacko MD Work Phone: 4(883)790-321323 [place] [address] 11-25-2024 09:54-0400 Body mass index (BMI) [Ratio] 33.9 kg/m2 Dr. Karen Chacko MD Work Phone: 8(869)571-583423 [place] [address] 11-25-2024 09:54-0400 Body weight 107.[address] Karen Chacko MD Work Phone: 1(301)816-883423 [place] [address] 11-25-2024 09:54-0400 Diastolic blood pressure 64 mm[Hg] Dr. Karen Chacko MD Work Phone: 8(097)750-623823 [place] [address] 11-25-2024 09:54-0400 Systolic blood pressure 97 mm[Hg] Dr. Karen Chacko MD Work Phone: 2(620)330-418823 [place] [address] 10-28-2024 13:39-0400 Body height 177.[address] Karen Chacko MD Work Phone: 8(120)965-689223 [place] [address] 10-28-2024 13:39-0400 Body mass index (BMI) [Ratio] 34.1 kg/m2 Dr. Karen Chacko MD Work Phone: 7(996)241-801623 [place] [address] 10-28-2024 13:39-0400 Body weight 107.[address] Karen Chacko MD Work Phone: 6(256)160-949023 [place] [address] 10-28-2024 13:39-0400 Diastolic blood pressure 73 mm[Hg] Dr. Karen Chacko MD Work Phone: 5(396)350-569723 [place] [address] 10-28-2024 13:39-0400 Heart rate 81 /min Dr. Karen Chacko MD Work Phone: 6(876)702-787023 [place] [address] 10-28-2024 13:39-0400 SaO2% (BldA) [Mass fraction] 97 % Dr. Karen Chacko MD Work Phone: 8(353)565-005323 [place] [address] 10-28-2024 13:39-0400 Systolic blood pressure 112 mm[Hg] Dr. Karen Chacko MD Work Phone: 7(948)320-538023 [place] [address] 10-25-2024 10:15-0400 Body height 177.[address] Karen Chacko MD Work Phone: 0(003)277-507523 [place] [address] 10-25-2024 10:15-0400 Body mass index (BMI) [Ratio] 33.8 kg/m2 Dr. Karen Chacko MD Work Phone: 0(675)134-999623 [place] [address] 10-25-2024 10:15-0400 Body weight 107.[address] Karen Chacko MD Work Phone: 1(435)434-992923 [place] [address] 10-25-2024 10:15-0400 Diastolic blood pressure 70 mm[Hg] Dr. Karen Chacko MD Work Phone: 0(122)100-293023 [place] [address] 10-25-2024 10:15-0400 Systolic blood pressure 122 mm[Hg] Dr. Karen Chacko MD Work Phone: 2(618)677-680823 [place] [address] 09-27-2024 10:22-0400 Body height 177.[address] Karen Chacko MD Work Phone: 1(246)444-489523 [place] [address] 09-27-2024 10:22-0400 Body mass index (BMI) [Ratio] 33.9 kg/m2 Dr. Karen Chacko MD Work Phone: 7(849)898-425123 [place] [address] 09-27-2024 10:22-0400 Body weight 107.[address] Karen Chacko MD Work Phone: 0(971)176-105823 [place] [address] 09-27-2024 10:22-0400 Diastolic blood pressure 75 mm[Hg] Dr. Karen Chacko MD Work Phone: 3(392)092-897201 [place] [address] 09-27-2024 10:22-0400 Systolic blood pressure 116 mm[Hg] Dr. Karen Chacko MD Work Phone: 6(116)807-261423 [place] [address] 08-30-2024 10:16-0400 Body height 177.[address] Karen Chacko MD Work Phone: 3(929)472-146923 [place] [address] 08-30-2024 10:15-0400 Body mass index (BMI) [Ratio] 33.6 kg/m2 Dr. Karen Chacko MD Work Phone: 6(138)937-351223 [place] [address] 08-30-2024 10:15-0400 Body weight 106.[address] Karen Chacko MD Work Phone: 4(211)943-619823 [place] [address] 08-30-2024 10:15-0400 Diastolic blood pressure 73 mm[Hg] Dr. Karen Chacko MD Work Phone: 0(586)071-938023 [place] [address] 08-30-2024 10:15-0400 Systolic blood pressure 115 mm[Hg] Dr. Karen Chacko MD Work Phone: 2(243)633-448223 [place] [address] 08-13-2024 09:13-0400 Body height 177.[address] Karen Chacko MD Work Phone: 1(493)151-401323 [place] [address] 07-28-2024 09:50-0400 Body height 177.[address] Karen Chacko MD Work Phone: 5(656)418-214623 [place] [address] 07-28-2024 09:50-0400 Body mass index (BMI) [Ratio] 33.4 kg/m2 Dr. Karen Chacko MD Work Phone: 0(887)742-363923 [place] [address] 07-28-2024 09:50-0400 Body weight 105.[address] Karen Chcako MD Work Phone: 8(171)614-552923 [place] [address] 07-28-2024 09:50-0400 Diastolic blood pressure 79 mm[Hg] Dr. Karen Chacko MD Work Phone: 7(738)341-787023 [place] [address] 07-28-2024 09:50-0400 Systolic blood pressure 129 mm[Hg] Dr. Karen Chacko MD Work Phone: [facility] Encounters Encounter Date Encounter Type Care Provider Facility Start: 03-03-2025 ambulatory Holly Euceda luthery:[facility] Start: 02-24-2025 ambulatory Karen Chacko Facility:[facility] Start: 02-21-2025 End: 02-21-2025 ambulatory Karen Chacko Facility:[facility] Start: 02-17-2025 End: 02-17-2025 ambulatory Karen Chacko Facility:[facility] Start: 02-14-2025 End: 02-14-2025 ambulatory Sarah Harris Facility:[facility] Start: 02-10-2025 End: 02-10-2025 ambulatory Karen Chacko Facility:[facility] Start: 02-07-2025 End: 02-07-2025 ambulatory [facility] Start: 02-07-2025 End: 02-07-2025 ambulatory Karen Chacko Facility:[facility] Start: 02-07-2025 End: 02-07-2025 ambulatory Karen Chacko Facility:[facility] Start: 02-03-2025 End: 02-03-2025 ambulatory Karen Chacko Facility:[facility] Start: 01-31-2025 End: 01-31-2025 Patient encounter procedure Alycia Torres CNM -[facility] Work Phone: Start: 01-31-2025 End: 01-31-[address] [facility]ack[facility] MD [facility] Start: 01-27-2025 ambulatory Sarah Mayty:[facility] Start: 01-27-2025 Non-patient / Non-visit Dr. Sarah Harris DO -[facility] Start: 01-27-2025 End: 01-27-[address] Sarah Harris DO -[facility] Work Phone: Start: 01-27-2025 End: 01-27-[address] [facility] Chacko MD [facility] Phone[facility] Start: 01-24-2025 End: 01-24-2025 Patient encounter procedure Alycia Torres CNM -[facility] Work Phone: Start: 01-24-2025 End: 01-24-[address] Karen Chacko MD Work Phone[facility] Start: 01-20-2025 End: 01-20-2025 Patient encounter procedure Alycia Torres [facility] -[facility] Work Phone: Start: 01-20-2025 End: 01-20-[address] Karen Chacko MD [facility] Phone[facility] Start: 01-17-2025 End: 01-17-2025 Patient encounter procedure Shannon HODGES -[facility] Work Phone: Start: 01-17-2025 End: 01-17-[address] Karen Chacko MD Work Phone[facility] Start: 01-14-2025 End: 01-14-2025 [facility] Start: 01-14-2025 End: 01-14-[address] Karen Chacko MD Work Phone[facility] Start: 01-11-2025 End: 01-11-[address] Sarah Harris DO -[facility] Work Phone: Start: 01-11-2025 End: 01-11-[address] Karen Chacko MD Work Phone[facility] Start: 01-06-2025 End: 01-06-2025 Patient encounter procedure Shannon HODGES -[facility] Work Phone: Start: 01-06-2025 End: 01-06-[address] Karen Chacko MD Work Phone[facility] Start: 12-28-2024 End: 12-28-2024 Patient encounter procedure Shannon Osuna NP-C -[facility] Work Phone: Start: 12-28-2024 End: 12-28-[address] Karen Chacko MD Work Phone[facility] Start: 12-22-2024 End: 12-22-2024 Patient encounter procedure Alycia Torres CNM -[facility] Work Phone: Start: 12-22-2024 End: 12-22-[address] Karen Chacko MD Work Phone[facility] Start: 11-25-2024 End: 11-25-[address] Holly Spear MD -[facility] Work Phone: Start: 11-25-2024 End: 11-25-[address] Karen Chacko MD Work Phone[facility] Start: 11-25-2024 End: 11-25-2024 ambulatory Holly Spear Facility:[facility] Start: 10-28-2024 End: 10-28-[address] Jeovanny Hall MD -[facility] Work Phone: Start: 10-28-2024 End: 10-28-[address] Karen Chacko MD Work Phone: [facility] Start: 10-25-2024 End: 10-25-2024 Patient encounter procedure Shannon Osuna NP-C -[facility] Work Phone: Start: 10-25-2024 End: 10-25-[address] Karen Chacko MD Work Phone[facility] Start: 10-22-2024 End: 10-22-2024 ambulatory KAREN CHACKO [facility] Start: 09-27-2024 End: 09-27-[address] Karen Chacko MD Work Phone: [facility] Work Phone: Start: 09-27-2024 End: 09-27-2024 Patient encounter procedure Alycia Torres CNM -Laboratory Specimen Work Phone: Start: 09-27-2024 End: 09-27-2024 Patient encounter procedure Alycia Torres CNM -[facility] Work Phone: Start: 09-27-2024 End: 09-27-[address] Karen Chacko MD Work Phone: [facility] Work Phone: Start: 09-27-2024 End: 09-27-2024 ambulatory Karen Chacko Facility:[facility] Start: 09-08-2024 End: 09-08-[address] Karen Chacko MD Work Phone: [facility] Work Phone: Start: 09-08-2024 End: 09-08-[address] Holly Spear MD -Laboratory Work Phone: Start: 09-08-2024 End: 09-08-2024 ambulatory Holly Spear Facility:[facility] Start: 08-30-2024 End: 08-30-[address] Sarah Harris DO -[facility] Work Phone: Start: 08-30-2024 End: 08-30-[address] Karen Chacko MD Work Phone: [facility] Work Phone: Start: 08-30-2024 End: 08-30-2024 ambulatory Sarah Harris Facility:[facility] Start: 08-13-2024 End: 08-13-[address] Karen Chacko MD Work Phone: [facility] Work Phone: Start: 08-13-2024 End: 08-13-2024 Patient encounter procedure Alycia Torres CNM -Laboratory, Specimen Work Phone: Start: 08-13-2024 End: 08-13-2024 Patient encounter procedure Alycia Brian ROSAS -[facility] Work Phone: Start: 08-13-2024 End: 08-13-2024 ambulatory Karen Minerva Facility:[facility] Start: 08-13-2024 End: 08-13-2024 ambulatory Karen Minerva Facility:[facility] Start: 07-28-2024 End: 07-28-[address] Karen Chacko MD Work Phone: [facility] Work Phone: Start: 07-28-2024 End: 07-28-[address] Holly Spear MD -Laboratory, Specimen Work Phone: Start: 07-28-2024 End: 07-28-[address] Holly Spear MD -[facility] Work Phone: Start: 07-28-2024 End: 07-28-2024 ambulatory Karen Chacko Facility:[facility] Start: 07-28-2024 End: 07-28-2024 ambulatory Holly Spear Facility:[facility] Procedures Date Procedure Procedure Detail Performing Clinician Start: 01-27-2025 Ultrasonography for biophysical profile without non-stress testing Dr. Karen Chacko MD Work Phone: Start: 11-25-2024 Serologic test for syphilis Dr. Karen Chacko MD Work Phone: Start: 09-27-[address] Karen Chacko MD Work Phone: Start: 08-30-[address] Karen Chacko MD Work Phone: Start: 08-30-2024 Hepatitis C antibody measurement Dr. Karen Chacko MD Work Phone: Comment on above: Reactive: Presumptiv e evidence of antibodies to HCV. Follow CDC recommendations for supplemental testing.Non-Reactive: Antibodies to HCV were not detected; does not exclude the possibility of exposure to HCVReactive Results are presumptive evidence of antibodies to HCV. Follow CDC recommendations for supplemental testing.Order confirmation testing: HCV Quant by PCR testing - HCVPCR #[id number] Non Reactive: < 0.8 Equivocal: >/= 0.8 to < 1.0 Reactive: >/= 1.0The CDC requires that a reactive/equivocal HCV antibody result be sent out for confirmation. HCV Quant by PCR testing. Start: 08-30-[address] Karen Chacko MD Work Phone: Comment on above: Antibody Result: Int erpretationNon-Reactive: Non- ImmuneReactive: ImmuneThe following results were obtained with the [employer] Rubella IgG assay. Results from assays of other manufacturers cannot be used interchangeably. Start: 08-30-2024 Serologic test for syphilis Dr. Karen Chacko MD Work Phone: Start: 08-13-[address] Karen Chacko MD Work Phone: Start: 07-28-[address] Karen Chacko MD Work Phone: Plan of Treatment Date Care Activity Detail Author Start: 02-17-2025 End: 02-17-2025 Patient encounter procedure AMA (advanced maternal age) multigravida 35+ -[facility] Work Phone: Start: 02-14-2025 End: 02-14-2025 Patient encounter procedure AMA (advanced maternal age) multigravida 35+ -[facility] Work Phone: Start: 02-10-2025 End: 02-10-2025 Patient encounter procedure AMA (advanced maternal age) multigravida 35+ -[facility] Work Phone: Start: 02-07-2025 Beta-hemolytic Streptococcus culture Group B Streptococcus Culture [facility] Start: 02-07-2025 Group B Streptococcus Culture Group B Streptococcus Culture [facility] Start: 02-07-2025 End: 02-07-2025 Patient encounter procedure -Laboratory Specimen Work Phone: Start: 02-07-2025 End: 02-07-2025 Patient encounter procedure AMA (advanced maternal age) multigravida 35+ -[facility] Work Phone: Start: 02-07-2025 Streptococcus agalactiae [Presence] in Unspecified specimen by Organism specific culture [facility] Start: 02-03-2025 [facility] Start: 02-03-2025 End: 02-03-2025 Patient encounter procedure AMA (advanced maternal age) multigravida 35+ -[facility] Work Phone: Start: 01-31-2025 End: 01-31-2025 Patient encounter procedure AMA (advanced maternal age) multigravida 35+ -[facility] Work Phone: Start: 01-27-2025 Non-patient / Non-visit Non-patient / Non-visit -[facility] Start: 01-27-2025 Nonstress test [facility] Start: 01-27-2025 Obstetric monitoring [facility] Start: 01-27-2025 Vital signs measurements [facility] Start: 01-27-2025 [facility] Start: 01-27-2025 Ultrasonography for biophysical profile without non-stress testing OB Biophysical Prof W/O NST [facility] Start: 01-27-2025 End: 01-27-2025 Patient encounter procedure AMA (advanced maternal age) multigravida 35+ -[facility] Work Phone: Start: 01-24-2025 End: 01-24-2025 Patient encounter procedure AMA (advanced maternal age) multigravida 35+ -[facility] Work Phone: Start: 01-11-2025 End: 01-11-2025 Patient encounter procedure AMA (advanced maternal age) multigravida 35+ -[facility] Work Phone: Start: 08-30-2024 CBC W Auto Differential panel - Blood [facility] Start: 08-30-2024 Hemoglobin A1c/Hemoglobin.total in Blood [facility] Start: 08-30-2024 Hepatitis C antibody measurement [facility] Start: 08-30-2024 Rubella IgG measurement [facility] Start: 08-30-2024 Serologic test for syphilis [facility] Start: 08-30-2024 [facility] Beta-hemolytic Streptococcus culture [facility] CBC W Auto Different ial panel - Blood [facility] CBC W Auto Different ial panel - Blood [facility] Erythrocyte mean corpuscular volume determination [facility] Biophysical pr ofile panel US [facility] Hematocrit [Volume Fraction] of Blood [facility] Hemoglobin [Mass/vol ume] in Blood [facility] Hemoglobin A1c/Hemoglobin.total in Blood [facility] Hepatitis B virus edward rface Ag [Presence] in Serum [facility] Hepatitis C antibody measurement [facility] Leukocytes [#/volume ] in Blood [facility] Mean corpuscular hemoglobin concentration determination [facility] Mean corpuscular hemoglobin determination [facility] Neutrophil count [facility] Neutrophil percent differential count [facility] Platelets [#/volume] in Blood [facility] Red blood cell count [facility] Red cell distributio n width determination [facility] Rubella IgG measurement [facility] Serologic test for syphilis [facility] Serologic test for syphilis [facility] Ultrasound scan for growth [facility] Ultrasound scan for growth [facility] [place] Immunization Date Immunization Notes Care Provider Fa [facility] 01-17-2025 influenza, injectabl e, madin shukri canine kidney, preservative free Dr. Karen Chacko MD Work Phone: [facility] 01-06-2025 tetanus toxoid, redu earl diphtheria toxoid, and acellular pertussis vaccine, adsorbed Dr. Karen Chacko MD Work Phone: [facility] Payers Date Payer Category Payer Self-pay 2024 Medicaid [id number] 2024 Unknown [id number] 1985 Unknown [id number] 2.16. [id number] 1985 Unknown [id number] 1985 Unknown [id number] Unknown [id number] Unknown [facility] [id number] Unknown [facility] [id number] Unknown [id number] Unknown [id number] 2.16.8 [id number] Unknown [id number] 2.16.8 [id number] Unknown [id number] 2.16.8 [id number] Unknown [id number] 2.16.8 [id number] Unknown [id number] 2.16.8 [id number] Unknown [id number] 2.16.8 [id number] Unknown [id number] 2.16.8 [id number] Unknown [id number] 2.16.8 [id number] Unknown [id number] 2.16.8 [id number] Unknown [id number] 2.16.8 [id number] Unknown [id number] 2.16.8 [id number] Unknown [id number] 2.16.8 40.1.425350.3.579.2.462 Unknown [id number] 2.16.8 40.1.687681.3.579.2.462 Unknown [id number] 2.16.8 40.1.635191.3.579.2.462 Unknown [id number] 2.16.8 40.1.501501.3.579.2.462 Unknown [id number] 2.16.8 40.1.292341.3.579.2.462 Unknown [id number] 2.16.8 40.1.198615.3.579.2.462 Unknown [id number] 2.16.8 40.1.090789.3.579.2.462 Unknown [id number] 2.16.8 40.1.393266.3.579.2.462 Unknown [id number] 2.16.8 40.1.924949.3.579.2.462 Unknown [id number] 2.16.8 40.1.009330.3.579.2.462 Unknown [id number] 2.16.8 40.1.647040.3.579.2.462 Unknown [id number] 2.16.8 40.1.805774.3.579.2.462 Unknown [id number] 2.16.8 40.1.189367.3.579.2.462 Unknown [id number] 2.16.8 40.1.435181.3.579.2.462 Unknown [id number] 2.16.8 40.1.549057.3.579.2.462 Unknown [id number] 2.16.8 40.1.965017.3.579.2.462 Unknown [id number] 2.16.8 40.1.581318.3.579.2.462 Unknown [id number] 2.16.8 40.1.547537.3.579.2.462 Unknown [id number] 2.16.8 40.1.486430.3.579.2.462 Unknown [id number] 2.16.8 40.1.683129.3.579.2.462 Unknown [id number] 2.16.8 40.1.341116.3.579.2.462 Unknown [id number] 2.16.8 40.1.291341.3.579.2.462 Unknown [id number] 2.16.8 40.1.935798.3.579.2.462 Social History Date Type Detail Facility Start: 07-23-2024 End: 08-12-2024 Tobacco smoking status NHIS Never smoked tobacco (finding) [facility] Start: 08-02-2024 Sex Female (finding) [facility] Start: 1985 Sex Assigned At Female W [facility] Sex Female [facility] Clinical Notes 07-28-2024 to 01-31-2025 Note Date & Type Note Facility 01-31-2025 Progress note [facility] Services 01-27-2025 History and physical note Note Date/Time January 27, 2025 5:47pm [facility] Medical Records Department [address] [place] [address] OB Triage Physician Note 01/27/25 7614 MR#: [id number] Acct: [id number] Name: BRITTANY ROCA Rep #:[id number] : 1985 39 From: Sarah Harris DO PCP: Dr. Karen Chacko MD Status:REG CLI Y Location: GR468-8 HPI - General HPI Narrative BRITTANY ROCA, is a 39 y/o @ 34 weeks 6 days who presents to L&D for a bpp due to non-reactive nst in office. Bpp was found to be 8/8 and nst reactive without decelerations. Maternal Data Information ISIDRA Calculator 2 Estimated Delivery Date Method Current WG Current Estimate 03/04/25 LMP (Certain) 34w 6d Other Estimates 03/10/25 Ultrasound #1 34w 0d 03/04/25 Ultrasound #2 34w 6d PFSH PFSH Medical History Varicose veins of both lower extremities Seasonal allergies Normal vaginal delivery Superficial varicosities Depression Gestational diabetes PCOS (polycystic ovarian syndrome) Genital herpes affecting Home Medications ?Medication ?Instructions ?Recorded ?Last Taken ?Type mv-mn 110-FA 180 mcg-om3 35 mg-dha tab PO DAILY Unknown History 25 mg-epa 5 mg-fish oil chew tablet flash glucose scanning reader #1 ea 08/31/24 Unknown R x (FreeStyle Todd 2 [place]) flash glucose sensor (FreeStyle #1 ea 08/31/24 Unknown Rx Todd 2 Sensor kit) metformin 500 mg tablet 500 mg PO .COMPLEX #60 tabs 01/03/25 Unknown Rx valacyclovir 500 mg tablet 500 mg PO QDAY #30 tabs 11/05 Unknown Rx Allergy/AdvReac Type Severity Reaction Status Date / Time avocado (avacado) Allergy Intermediate Swelling Verified 01/27/25 14:03 of tongue Family History Aunt Breast cancer, Onset Age: 40 Maternal- unknown if genetic testing was done. 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 current occupational exposures/hazards: No pets and animals: Yes pets and animals: dog(s) history of recent travel: Yes (- June) out of state: Yes out of country: No sexually active: Yes Smoking Status: Never smoker second hand exposure: No alcohol intake: current alcohol intake frequency: holidays/special occasions only details: not while substance use type: does not use well-balanced diet: daily or most days caffeine: No eating out: 1-3 times/week during the past year weight has: increased > 10 lbs what type of physical activity do you participate in: other details: crossfit frequency: 1-2 times per week duration: 45-60 minutes/day amanda/latter-day: Scientologist seatbelt use: always do you feel safe at home: Yes additional social history: - Farzad History 3 Elective abortions Hx Para 2 Spontaneous abortions Hx # Term Pregnancies Ectopic pregnancies Hx # Pregnancies Multiple births # of living children 2 Past Pregnancies Del. Date Name GA/Weeks Outcome Route Bth Weight Infant Gen Labor Lgth Anesthesia Del Locatn Provider FOB 08/26/18 Jennifer 40 live - full term 9lbs Female 16 hours none [facility] EB Farzad 10/24/20 Aleksander 39 live - full term 8#10oz Male epi dural [facility] Dr. Rainer Panda Delivery Date: 08/26/18 Last Updated by: Pauline Tay 3rd degree laceration; NICU for possible NEC- she did not have Visit Details OB Flowsheet Initial Weight: Not Recorded Date -?-?-?-?-?-?-?-?-?-?-?-?- EGA Weight BP Urine Prot -?-?-?-?-?-?-?-?-?-?-?-?- Glucose FHR FuHt Pres Dilation -?-?-?-?-?-?-?-?-?-?-?-?- Effaced St Visit Note 07/28/24 -?-?-?-?-?-?-?-?-?-?-?-?- 8w 5d 233 lb 2 oz 129/79 -?-?-?-?-?-?-?-?-?-?-?-?- 170 -?-?-?-?-?-?-?-?-?-?-?-?- SM- CRL 1.4 not cons with LMP 08/13/24 -?-?-?-?-?-?-?-?-?-?-?-?- 11w 0d Negative -?-?-?-?-?-?-?-?-?-?-?-?- Negative -?-?-?-?-?-?-?-?-?-?-?-?- nurse visit for UTI sx. culture sent and rx for atb sent due to sx. 08/30/24 -?-?-?-?-?-?-?-?-?-?-?-?- 13w 3d 234 lb 6 oz 115/73 Nega tive -?-?-?-?-?-?-?-?-?-?-?-?- Negative 155 -?-?-?-?-?-?-?-?-?-?-?-?- JV- no lof, vagi nal bleeding, or cramping. due date cleared up. Needs clean catch test of cure and new ob labs 09/27/24 -?-?-?-?-?-?-?-?-?-?-?-?- 17w 3d 236 lb 6 oz 116/75 -?-?-?-?-?-?-?-?-?-?-?-?- 155 -?-?-?-?-?-?-?-?-?-?-?-?- KW- US scheduled with [facility]. no vb/cramping. +flutters. On metformin 500mg for Blood sugars. Reports fasting BS under 95. Encouraged to continue checking BS and follow up with DR Kim. doing well on ZOloft. KW- US scheduled with [facility]. n o vb/cramping. +flutters. On metformin 500mg for Blood sugars. Reports fasting BS under 95. Encouraged to continue checking BS-has not been consistent- and follow up with DR Kim. doing well on ZOloft. 10/25/24 -?-?-?-?-?-?--?-?-?-?-?-?- 21w 3d 236 lb 2 oz 122/70 Nega tive -?-?-?-?-?-?-?-?-?-?-?-?- Negative 142 -?-?-?-?-?-?-?-?-?-?-?-?- -No VB. Jaziel F M. Insulin resistant/on metformin and seeing Dr Hall -No VB. Good FM. Insulin r esistant/on metformin and seeing Dr Hall. 11/25/24 -?-?-?-?-?-?-?-?-?-?-?-?- 25w 6d 236 lb 9 oz 97/64 Nega tive -?-?-?-?-?-?-?-?-?-?-?-?- Negative 140 26 -?-?-?-?-?-?-?-?-?-?-?-?- SM- no vb lof go od fm n oregular ctx 12/22/24 -?-?-?-?-?--?-?-?-?-?-?-?- 29w 5d 241 lb 8 oz 113/79 Nega tive -?-?-?-?-?-?-?-?-?-?-?-?- Negative 150 32 -?-?-?-?-?-?-?-?-?-?-?-?- KW- no vb/lof/ct x. good fm. Rafael following blood sugars. 1000mg of metformin nightly. growth US ordered for S>D 12/28/24 -?-?-?-?-?-?-?-?-?-?-?-?- 30w 4d 241 lb 6 oz 102/66 Nega tive -?-?-?-?-?-?-?-?-?-?-?-?- Negative 153 33 -?-?-?-?-?-?-?-?-?-?-?-?- MH-No VB,LOF, CT X. Good FM. Feeling more anxious, not sure zoloft working. Reassured concerning risks to . Discussed changing to buspar or increasing dosage. She prefers to increase dosage. Is seeing counselor 3 X month 01/06/25 -?-?-?-?-?-?-?-?-?-?-?-?- 31w 6d 243 lb 5 oz 105/65 Nega tive -?-?-?-?-?-?-?-?-?-?-?-?- Negative 157 34 -?-?-?-?-?-?-?-?-?-?-?-?- MH-No VB, LOF. G ood FM. Stopped zoloft completely and feels much better. Glucose levels followed per endo and at nl ranges. NSTs2 X wk start next week and has growth US next week 01/11/25 -?-?-?-?-?-?-?-?-?-?-?-?- 32w 4d 247 lb 2 oz 108/67 Nega tive -?-?-?-?-?-?-?-?-?-?-?-?- Negative 150 -?-?-?-?-?-?-?-?-?-?-?-?- JV- nst only tod ay. reactive. states metfomin is helping with fasting levels. followed by Dr. Hall. She has a growth scan now. 01/14/25 -?-?-?-?-?-?-?-?-?-?-?-?- 33w 0d 247 lb 3 oz 116/71 Nega tive -?-?-?-?-?-?-?-?-?-?-?-?- Negative 135 -?-?-?-?-?-?-?-?-?-?-?-?- KW- no vb/lof/ct x good fm. reactive NST. MIL in longterm-noticing some spikes in blood sugars with stress. still following with . 01/17/25 -?-?-?-?-?-?-?-?-?-?-?-?- 33w 3d 244 lb 9 oz 106/68 Nega tive -?-?-?-?-?-?-?-?-?-?-?-?- Negative 140 34 -?-?-?-?-?-?--?-?-?-?-?-?- MH-No VB, LOF. G ood FM. Reactive NST. FLu vaccine given 01/20/25 -?-?-?-?-?-?-?-?-?-?-?-?- 33w 6d 247 lb 7 oz 112/70 Nega tive -?-?-?-?-?-?--?-?-?-?-?-?- Negative 130 -?-?-?-?-?-?-?-?-?-?-?-?- KW- No vb/lof/ct x. good fm. reactive NST 01/24/25 -?-?-?-?-?-?-?-?-?-?-?-?- 34w 3d 250 lb 7 oz 103/69 Nega tive -?-?-?-?-?-?-?-?-?-?-?-?- Negative 135 -?-?-?-?-?-?-?-?-?-?-?-?- KW- no vb/lof/ct x. good fm reactive nst has growth US scheduled. blood sugars controlled. 01/27/25 -?-?-?-?-?-?-?-?-?-?-?-?- 34w 6d 249 lb 1 oz 113/74 Nega tive -?-?-?-?-?-?-?-?-?-?-?-?- Negative 130 -?-?-?-?-?-?-?-?-?-?-?-?- KW- NST only. no t reactive. to WP for BPP. ROS Constitutional Constitutional: Reports systems reviewed and no addt'l complaints, except as documented Gastrointestinal Gastrointestinal: Denies bloating, constipation, cramping, diarrhea, nausea or vomiting Genitourinary Genitourinary: Reports other Details: Denies vaginal odor, vaginal bleeding, or vaginal discharge ; Denies difficulty urinating or flank pain Physical Exam HEENT normocephalic Resp normal respiratory effort and normal air movement Extremity normal to inspection General Extremity: edema bilateral (trace ) NST FHR Rate Baby A Baseline: 140 Variability:: Moderate Accelerations:: 15 x 15 Decelerations:: None NST Reactive:: Yes FHR Category:: Category I Assessment & Plan (1) Uterine size date discrepancy : COMMENT: growth US ordered:32 wk:EFW 68%, AC 98%. 36 w scheduled (2) Gestational diabetes: QUALIFIERS: Gestational diabetes mellitus control: oral hypoglycemic-controlled Trimester: second trimester Qualified Code(s): O24.415- Gestational diabetes mellitus in , controlled by oral hypoglycemic drugs (3) Insulin resistance complicating : COMMENT: on metformin; Dr Hall manages. Growth US 32 and 36 wk. Twice wkly NST at 32 wk. Del at 39 wk (4) UTI (urinary tract infection) during : QUALIFIERS: Trimester: second trimester Qualified Code(s): O23.42- Unspecified infection of urinary tract in , second trimester (5) AMA (advanced maternal age) multigravida 35+: QUALIFIERS: Trimester: third trimester Qualified Code(s): O09.523- Supervision of elderly multigravida, third trimester COMMENT: discussed genetic testing. Patient declines. (6) Genital herpes affecting : QUALIFIERS: Trimester: third trimester Qualified Code(s): O98.313- Other infections with a predominantly sexual mode of transmission complicatingpregnancy, third trimester; A60.09 - Herpesviral infection of other urogenital tract COMMENT: valtrex at 34-36 weeks (7) Obesity affecting : QUALIFIERS: Trimester: second trimester Obesity type affecting : unspecified obesity Qualified Code(s): O99.212 - Obesity complicating , second trimester COMMENT: HGBA1C, BMI 33 (8) History of gestational diabetes mellitus (GDM) in prior , currently: (9) Anxiety: COMMENT: zoloft stopped. Continue counseling 3 X a week. "feels much better off med" (10) Supervision of high-risk : QUALIFIERS: Trimester: third trimester Qualified Code(s): O09.93 - Supervision of high risk , unspecified, third trimester COMMENT: PRR , ISIDRA 03/04/25, PC Aleksander Rodriguez, Farzad (11) : QUALIFIERS: Weeks of gestation: 34 weeks Qualified Code(s): Z3A.34 - 34 weeks gestation of COMMENT: declined NIPT & Carrier testing, nl 3 HR GTT, nl anatomy PLAN: Plan reactive nst. and bpp8/9- ok to dc to home Charges/Coding Multi Select Codes Visit Charges Office Visit/Consults: 38527 OV L3 Est 20min Urinary/Genital Urinary/Genital CPT Codes: 06827-39 non-stress test Interp 01/27/25 4747 <Electronically signed by Sarah Vieira DO> Date _ Sarah Billign Signature (if applicable): Date CC: Dr. Karen Chacko MD; Dr. Sarah Harris DO ~ Signed [facility] Work Phone: 1(940) 235-227910-16-2025 History and physical note [facility] Medical Records Department [address] [place] [address] OB Triage Physician Note 01/27/25 1275 MR#: [id number] Acct: [id number] Name: BRITTANY ROCA Rep #:[id number] : 1985 39 From: Sarah Harris DO PCP: Dr. Karen Chacko MD Status:REG CLI Y Location: AC923-4 HPI - General HPI Narrative BRITTANY ROCA, is a 39 y/o @ 34 weeks 6 days who presents to L&D for a bpp due to non-reactive nst in office. Bpp was found to be 8/8 and nst reactive without decelerations. Maternal Data Information ISIDRA Calculator 2 Estimated Delivery Date Method Current WG Current Estimate 03/04/25 LMP (Certain) 34w 6d Other Estimates 03/10/25 Ultrasound #1 34w 0d 03/04/25 Ultrasound #2 34w 6d PFSH PFSH Medical History Varicose veins of both lower extremities Seasonal allergies Normal vaginal delivery Superficial varicosities Depression Gestational diabetes PCOS (polycystic ovarian syndrome) Genital herpes affecting Home Medications ?Medication ?Instructions ?Recorded ?Last Taken ?Type mv-mn 110-FA 180 mcg-om3 35 mg-dha tab PO DAILY Unknown History 25 mg-epa 5 mg-fish oil chew tablet flash glucose scanning reader #1 ea 08/31/24 Unknown R x (FreeStyle Todd 2 [place]) flash glucose sensor (FreeStyle #1 ea 08/31/24 Unknown Rx Todd 2 Sensor kit) metformin 500 mg tablet 500 mg PO .COMPLEX #60 tabs 01/03/25 Unknown Rx valacyclovir 500 mg tablet 500 mg PO QDAY #30 tabs 11/05 Unknown Rx Allergy/AdvReac Type Severity Reaction Status Date / Time avocado (avacado) Allergy Intermediate Swelling Verified 01/27/25 14:03 of tongue Family History Aunt Breast cancer, Onset Age: 40 Maternal- unknown if genetic testing was done. 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 current occupational exposures/hazards: No pets and animals: Yes pets and animals: dog(s) history of recent travel: Yes (- June) out of state: Yes out of country: No sexually active: Yes Smoking Status: Never smoker second hand exposure: No alcohol intake: current alcohol intake frequency: holidays/special occasions only details: not while substance use type: does not use well-balanced diet: daily or most days caffeine: No eating out: 1-3 times/week during the past year weight has: increased > 10 lbs what type of physical activity do you participate in: other details: crossfit frequency: 1-2 times per week duration: 45-60 minutes/day amanda/latter-day: Scientologist seatbelt use: always do you feel safe at home: Yes additional social history: - Farzad History 3 Elective abortions Hx Para 2 Spontaneous abortions Hx # Term Pregnancies Ectopic pregnancies Hx # Pregnancies Multiple births # of living children 2 Past Pregnancies Del. Date Name GA/Weeks Outcome Route Bth Weight Gen Labor Lgth Anesthesia Del Locatn Provider FOB 08/26/18 Jennifer 40 live - full term 9lbs Female 16 hours none [facility] ZACH Panda 10/24/20 Aleksander 39 live - full term 8#10oz Male epi dural [facility] Dr. Rainer Panda Delivery Date: 08/26/18 Last Updated by: Pauline Tay 3rd degree laceration; NICU for possible NEC- she did not have Visit Details OB Flowsheet Initial Weight: Not Recorded Date -?-?-?-?-?-?-?-?-?-?-?-?- EGA Weight BP Urine Prot -?-?-?-?-?-?-?-?-?-?-?-?- Glucose FHR FuHt Pres Dilation -?-?-?-?-?-?-?-?-?-?-?-?- Effaced St Visit Note 07/28/24 -?-?-?-?-?-?-?-?-?-?-?-?- 8w 5d 233 lb 2 oz 129/79 -?-?-?-?-?-?-?-?-?-?-?-?- 170 -?-?-?-?-?-?-?-?-?-?-?-?- SM- CRL 1.4 not cons with LMP 08/13/24 -?-?-?-?-?-?-?-?-?-?-?-?- 11w 0d Negative -?-?-?-?-?-?-?-?-?-?-?-?- Negative -?-?-?-?-?-?-?-?-?-?-?-?- nurse visit for UTI sx. culture sent and rx for atb sent due to sx. 08/30/24 -?-?-?-?-?-?-?-?-?-?-?-?- 13w 3d 234 lb 6 oz 115/73 Nega tive -?-?-?-?-?-?-?-?-?-?-?-?- Negative 155 -?-?-?-?-?-?-?-?-?-?-?-?- JV- no lof, vagi nal bleeding, or cramping. due date cleared up. Needs clean catch test of cure and new ob labs 09/27/24 -?-?-?-?-?-?-?-?-?-?-?-?- 17w 3d 236 lb 6 oz 116/75 -?-?-?-?-?-?-?-?-?-?-?-?- 155 -?-?-?-?-?-?-?-?-?-?-?-?- KW- US scheduled with [facility]. no vb/cramping. +flutters. On metformin 500mg for Blood sugars. Reports fasting BS under 95. Encouraged to continue checking BS and follow up with Renny. doing well on ZOloft. KW- US scheduled with [facility]. n o vb/cramping. +flutters. On metformin 500mg for Blood sugars. Reports fasting BS under 95. Encouraged to continue checking BS- has not been consistent- and follow up with DR Kim. doing well on ZOloft. 10/25/24 -?-?-?-?-?-?--?-?-?-?-?-?- 21w 3d 236 lb 2 oz 122/70 Nega tive -?-?-?-?-?-?-?-?-?-?-?-?- Negative 142 -?-?-?-?-?-?-?-?-?-?-?-?- -No VB. Jaziel F M. Insulin resistant/on metformin and seeing Dr Hall -No VB. Jaziel MISHRA. Insulin r esistant/on metformin and seeing Dr Hall. 11/25/24 -?-?-?-?-?-?-?-?-?-?-?-?- 25w 6d 236 lb 9 oz 97/64 Nega tive -?-?-?-?-?-?-?-?-?-?-?-?- Negative 140 26 -?-?-?-?-?-?-?-?-?-?-?-?- SM- no vb lof go od fm n oregular ctx 12/22/24 -?-?-?-?-?--?-?-?-?-?-?-?- 29w 5d 241 lb 8 oz 113/79 Nega tive -?-?-?-?-?-?-?-?-?-?-?-?- Negative 150 32 -?-?-?-?-?-?-?-?-?-?-?-?- KW- no vb/lof/ct x. jaziel mishra. following blood sugars. 1000mg of metformin nightly. growth US ordered for S>D 12/28/24 -?-?-?-?-?-?-?-?-?-?-?-?- 30w 4d 241 lb 6 oz 102/66 Nega tive -?-?-?-?-?-?-?-?-?-?-?-?- Negative 153 33 -?-?-?-?-?-?-?-?-?-?-?-?- MH-No VB,LOF, CT X. Good FM. Feeling more anxious, not sure zoloft working. Reassured concerning risks to . Discussed changing to buspar or increasing dosage. She prefers to increase dosage. Is seeing counselor 3 X month 01/06/25 -?-?-?-?-?-?-?-?-?-?-?-?- 31w 6d 243 lb 5 oz 105/65 Nega tive -?-?-?-?-?-?-?-?-?-?-?-?- Negative 157 34 -?-?-?-?-?-?-?-?-?-?-?-?- MH-No VB, LOF. G ood FM. Stopped zoloft completely and feels much better. Glucose levels followed per endo and at nl ranges. NSTs2 X wk start next week and has growth US next week 01/11/25 -?-?-?-?-?-?-?-?-?-?-?-?- 32w 4d 247 lb 2 oz 108/67 Nega tive -?-?-?-?-?-?-?-?-?-?-?-?- Negative 150 -?-?-?-?-?-?-?-?-?-?-?-?- JV- nst only tod ay. reactive. states metfomin is helping with fasting levels. followed by Dr. Hall. She has a growth scan now. 01/14/25 -?-?-?-?-?-?-?-?-?-?-?-?- 33w 0d 247 lb 3 oz 116/71 Nega tive -?-?-?-?-?-?-?-?-?-?-?-?- Negative 135 -?-?-?-?-?-?-?-?-?-?-?-?- KW- no vb/lof/ct x good fm. reactive NST. MIL in longterm-noticing some spikes in blood sugars with stress. still following with . 01/17/25 -?-?-?-?-?-?-?-?-?-?-?-?- 33w 3d 244 lb 9 oz 106/68 Nega tive -?-?-?-?-?-?-?-?-?-?-?-?- Negative 140 34 -?-?-?-?-?-?--?-?-?-?-?-?- MH-No VB, LOF. G ood FM. Reactive NST. FLu vaccine given 01/20/25 -?-?-?-?-?-?-?-?-?-?-?-?- 33w 6d 247 lb 7 oz 112/70 Nega tive -?-?-?-?-?-?--?-?-?-?-?-?- Negative 130 -?-?-?-?-?-?-?-?-?-?-?-?- KW- No vb/lof/ct x. good fm. reactive NST 01/24/25 -?-?-?-?-?-?-?-?-?-?-?-?- 34w 3d 250 lb 7 oz 103/69 Nega tive -?-?-?-?-?-?-?-?-?-?-?-?- Negative 135 -?-?-?-?-?-?-?-?-?-?-?-?- KW- no vb/lof/ct x. good fm reactive nst has growth US scheduled. blood sugars controlled. 01/27/25 -?-?-?-?-?-?-?-?-?-?-?-?- 34w 6d 249 lb 1 oz 113/74 Nega tive -?-?-?-?-?-?-?-?-?-?-?-?- Negative 130 -?-?-?-?-?-?-?-?-?-?-?-?- KW- NST only. no t reactive. to WP for BPP. ROS Constitutional Constitutional: Reports systems reviewed and no addt'l complaints, except as documented Gastrointestinal Gastrointestinal: Denies bloating, constipation, cramping, diarrhea, nausea or vomiting Genitourinary Genitourinary: Reports other Details: Denies vaginal odor, vaginal bleeding, or vaginal discharge ; Denies difficulty urinating or flank pain Physical Exam HEENT normocephalic Resp normal respiratory effort and normal air movement Extremity normal to inspection General Extremity: edema bilateral (trace ) NST FHR Rate Baby A Baseline: 140 Variability:: Moderate Accelerations:: 15 x 15 Decelerations:: None NST Reactive:: Yes FHR Category:: Category I Assessment & Plan (1) Uterine size date discrepancy : COMMENT: growth US ordered:32 wk:EFW 68%, AC 98%. 36 w scheduled (2) Gestational diabetes: QUALIFIERS: Gestational diabetes mellitus control: oral hypoglycemic-controlled Trimester: second trimester Qualified Code(s): O24.415- Gestational diabetes mellitus in , controlled by oral hypoglycemic drugs (3) Insulin resistance complicating : COMMENT: on metformin; Dr Hall manages. Growth US 32 and 36 wk. Twice wkly NST at 32 wk. Del at 39 wk (4) UTI (urinary tract infection) during : QUALIFIERS: Trimester: second trimester Qualified Code(s): O23.42- Unspecified infection of urinarytract in , second trimester (5) AMA (advanced maternal age) multigravida 35+: QUALIFIERS: Trimester: third trimester Qualified Code(s): O09.523- Supervision of elderly multigravida, third trimester COMMENT: discussed genetic testing. Patient declines. (6) Genital herpes affecting : QUALIFIERS: Trimester: third trimester Qualified Code(s): O98.313- Other infections with a predominantly sexual mode of transmission complicatingpregnancy, third trimester; A60.09 - Herpesviral infection of other urogenital tract COMMENT: valtrex at 34-36 weeks (7) Obesity affecting : QUALIFIERS: Trimester: second trimester Obesity type affecting : unspecified obesity Qualified Code(s): O99.212 - Obesity complicating , second trimester COMMENT: HGBA1C, BMI 33 (8) History of gestational diabetes mellitus (GDM) in prior , currently: (9) Anxiety: COMMENT: zoloft stopped. Continue counseling 3 X a week. "feels much better off med" (10) Supervision of high-risk : QUALIFIERS: Trimester: third trimester Qualified Code(s): O09.93 - Supervision of high risk , unspecified, third trimester COMMENT: PRR , ISIDRA 03/04/25, PC Aleksander Rodriguez, Farzad (11) : QUALIFIERS: Weeks of gestation: 34 weeks Qualified Code(s): Z3A.34 - 34 weeks gestation of COMMENT: declined NIPT & Carrier testing, nl 3 HR GTT, nl anatomy PLAN: Plan reactive nst. and bpp8/9- ok to dc to home Charges/Coding Multi Select Codes Visit Charges Office Visit/Consults: 99133 OV L3 Est 20min Urinary/Genital Urinary/Genital CPT Codes: 01955-58 non-stress test Interp 01/27/25 1747 e Edith DO> Date _ Sarah Harris DO Cosigner Signature (if applicable): Date CC: Dr. Karen Chacko MD; Dr. Sarah Harris, ~ Signed [facility]10-16-2025 Radiology Diagnostic study note [facility] Imaging Services [address] [place], [place] [address] OB Biophysical Prof W/O NST MR#: [id number] Acct: [id number] Name: BRITTANY ROCA Rep #: [id number] : 1985 F 39 From: Bienvenido Ruvalcaba MD PCP: Dr. Karen Chacko MD Status: REG CLI Study:OB Biophysical Prof W/O NST Date of Exa m: 01/27/25 Exam# [id number] Ordering Dr: Alycia Torres CNM PROCEDURE: OB BIOPHYSICAL PROF W/O NST 01/27/2025 REASON FOR EXAM: VARIABLE AND NO ACCEL'S TECHNIQUE: Procedure Code: USBIOWO Modality: US Procedure: OB BIOPHYSICAL PROF W/O NST FINDINGS FINDINGS: Single live intrauterine in cephalic presentation. heart rate measures 147 beats per minute. movement, tone, and breathing are observed and within normal limits. Amniotic fluid volume is normal with an ANDRZEJ of 9.5 cm and largest pocket measuring 3.8 cm. Placenta is anterior in location and not low-lying. Placenta demonstrates grade 2 maturation, appropriate for gestational age. sex is male. Estimated gestational age by last menstrual period is 34 weeks and 6 days. BIOPHYSICAL PROFILE: breathing movements: 2 Gross body movements: 2 tone: 2 Amniotic fluid volume: 2 Total score: 8 out of 8 US/OB Biophysical Prof W/O NST IMPRESSION: Normal biophysical profile (8/8). Normal amniotic fluid volume. Single live intrauterine in cephalic presentation. Anterior placenta, grade 2, not low-lying. Findings consistent with a reassuring status at approximately 34 weeks and6 days gestation. Reading Location: [address] CC: RALPH Torres; Dr. Karen Chacko MD ~ Paramedical Aide: Signed [facility]10-16-2025 [facility] Women's [address], [address] [place] [address] OFFICE VISIT Date of Service: 01/27/25 MR#: [id number] Acct: [id number] Name: BRITTANY ROCA Rep #: [id number] : 1985 Provider: RALPH Torres Age/Sex: 39/F [place] [facility] [place]: Signed Intake Vital Signs 01/06/25 08:44 01/24/25 10:21 01/27/25 14:01 Height 5 ft 10 in 5 ft 10 in 5 ft 10 in Weight: 250 lb 7 oz 249 lb 1 oz BMI 35.9 35.7 BP 103/69 113/74 Intake Visit Reasons: 35wk NST ONLY Drying Oven Tender Required: No Is patient in pain?: No Allergies avocado (avacado) Allergy (Intermediate, Verified 01/27/25 14:03) Swelling of tongue Medications ?Medication ?Instructions ?Recorded ?Confirmed ?Type mv-mn 110-FA 180 mcg-om3 35 mg-dha tab PO DAILY 04/11/ 25 10/16/25 History 25 mg-epa 5 mg-fish oil chew tablet flash glucose scanning reader #1 ea 08/31/24 01/27/25 Rx (FreeStyle Todd 2 [place]) flash glucose sensor (FreeStyle #1 ea 08/31/24 5 Rx Todd 2 Sensor kit) metformin 500 mg tablet 500 mg PO .COMPLEX #60 tabs 01/03/25 01/27/25 Rx valacyclovir 500 mg tablet 500 mg PO QDAY #30 tabs 11/0501/27/25 Rx Last Menstrual Period: 05/28/24 Zika: Zika virus screening: Negative : No PFSH PFSH Medical History Varicose veins of both lower extremities Seasonal allergies Normal vaginal delivery Superficial varicosities Depression Gestational diabetes PCOS (polycystic ovarian syndrome) Genital herpes affecting Surgical History History of tonsillectomy Family History Aunt Breast cancer, Onset Age: 40 Maternal- unknown if genetic testing was done. 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 occupational exposures/hazards: No pets and animals: Yes pets and animals: dog(s) history of recent travel: Yes (- June) out of state: Yes out of country: No sexually active: Yes Smoking Status: Never smoker second hand exposure: No alcohol intake: current alcohol intake frequency: holidays/special occasions only details: not while substance use type: does not use well-balanced diet: daily or most days caffeine: No eating out: 1-3 times/week during the past year weight has: increased > 10 lbs what type of physical activity do you participate in: other details: crossfit frequency: 1-2 times per week duration: 45-60 minutes/day amanda/latter-day: Scientologist seatbelt use: always do you feel safe at home: Yes additional social history: - Farzad History 3 Elective abortions Hx Para 2 Spontaneous abortions Hx # Term Pregnancies Ectopic pregnancies Hx # Pregnancies Multiple births # of living children 2 Past Pregnancies Del. Date Name GA/Weeks Outcome Route Bth Weight Gen Labor Lgth Anesthesia Del Locatn Provider FOB 08/26/18 Jennifer 40 live - full term 9lbs Female 16 hours none [facility] Farzad 10/24/20 Aleksander 39 live - full term 8#10oz Male epi dural [facility] Dr. Rainer Panda Delivery Date: 08/26/18 Last Updated by: Pauline Tay 3rd degree laceration; NICU for possible NEC- she did not have HPI 35wk NST ONLY Details: BRITTANY ROCA is a 39 year old who presents for routine OB visit. OB Visit ISIDRA Calculator Estimated Delivery Date Method Current WG Current Estimate 03/04/25 LMP (Certain) 34w 6d Other Estimates 03/10/25 Ultrasound #1 34w 0d 03/04/25 Ultrasound #2 34w 6d Initial Weight: Not Recorded Date -?-?-?-?-?-?-?-?-?-?-?-?- EGA Weight BP Urine Prot -?-?-?-?-?-?-?-?-?-?-?-?- Glucose FHR FuHt Pres Dilation -?-?-?-?-?-?-?-?-?-?-?-?- Effaced St Visit Note 07/28/24 -?-?-?-?-?-?-?-?-?-?-?-?- 8w 5d 233 lb 2 oz 129/79 -?-?-?-?-?-?-?-?-?-?-?-?- 170 -?-?-?-?-?-?-?-?-?-?-?-?- SM- CRL 1.4 not cons with LMP 08/13/24 -?-?-?-?-?-?-?-?-?-?-?-?- 11w 0d Negative -?-?--?-?-?-?-?-?-?-?-?-?- Negative -?-?-?-?-?-?-?-?-?-?-?-?- nurse visit for UTI sx. culture sent and rx for atb sent due to sx. 08/30/24 -?-?-?-?-?-?-?-?-?-?--?-?- 13w 3d 234 lb 6 oz 115/73 Nega tive -?-?-?-?-?-?-?-?-?-?-?-?- Negative 155 -?-?-?-?-?-?-?-?-?-?-?-?- JV- no lof, vagi nal bleeding, or cramping. due date cleared up. Needs clean catch test of cure and new ob labs 09/27/24 -?-?-?-?-?-?-?-?-?-?-?-?- 17w 3d 236 lb 6 oz 116/75 -?-?-?-?-?-?-?-?-?-?-?-?- 155 -?-?-?-?-?-?-?-?-?-?-?-?- KW- US scheduled with [facility]. no vb/cramping. +flutters. On metformin 500mg for Blood sugars. Reports fasting BS under 95. Encouraged to continue checking BS and follow up with Renny. doing well on ZOloft. KW- US scheduled with [facility]. n o vb/cramping. +flutters. On metformin 500mg for Blood sugars. Reports fasting BS under 95. Encouraged to continue checking BS- has not been consistent- and follow up with DR Kim. doing well on ZOloft. 10/25/24 -?-?-?-?-?-?-?-?-?-?-?-?- 21w 3d 236 lb 2 oz 122/70 Nega tive -?-?-?-?-?-?-?-?-?-?-?-?- Negative 142 -?-?-?-?-?-?-?-?-?-?-?-?- -No MYRIAM. Jaziel Canseco. Insulin resistant/on metformin and seeing Dr Hall -No VB. Good FM. Insulin r esistant/on metformin and seeing Dr Hall. 11/25/24 -?-?-?-?-?-?-?-?-?-?-?-?- 25w 6d 236 lb 9 oz 97/64 Nega tive -?-?-?-?-?-?-?-?-?-?-?-?- Negative 140 26 -?-?-?-?-?-?-?-?-?-?-?-?- SM- no vb lof go od fm n oregular ctx 12/22/24 -?-?-?-?-?-?-?-?-?-?-?-?- 29w 5d 241 lb 8 oz 113/79 Nega tive -?-?-?-?-?-?-?-?-?-?-?-?- Negative 150 32 -?-?-?-?-?-?-?-?-?-?-?-?- KW- no vb/lof/ct x. good fm. following blood sugars. 1000mg of metformin nightly. growth US ordered for S>D 12/28/24 -?-?-?-?-?-?-?-?-?-?-?-?- 30w 4d 241 lb 6 oz 102/66 Nega tive -?-?-?-?-?-?-?-?-?-?-?-?- Negative 153 33 -?-?-?-?-?-?-?-?-?-?-?-?- MH-No VB,LOF, CT X. Good FM. Feeling more anxious, not sure zoloft working. Reassured concerning risks to . Discussed changing to buspar or increasing dosage. She prefers to increase dosage. Is seeing counselor 3 X month 01/06/25 -?-?-?-?-?-?-?-?-?-?-?-?- 31w 6d 243 lb 5 oz 105/65 Nega tive -?-?-?-?--?-?-?-?-?-?-?-?- Negative 157 34 -?-?-?-?-?-?-?-?-?-?-?-?- MH-No VB, LOF. G ood FM. Stopped zoloft completely and feels much better. Glucose levels followed per endo and at nl ranges. NSTs2 X wk start next week and has growth US next week 01/11/25 -?-?-?-?-?-?-?-?-?-?-?-?- 32w 4d 247 lb 2 oz 108/67 Nega tive -?-?-?-?-?-?-?-?-?--?-?-?- Negative 150 -?-?-?-?-?-?-?-?-?-?-?-?- JV- nst only tod ay. reactive. states metfomin is helping with fasting levels. followed by Dr. Hall. She has a growth scan now. 01/14/25 -?-?-?-?-?-?-?-?-?-?-?-?- 33w 0d 247 lb 3 oz 116/71 Nega tive -?-?-?-?-?-?-?-?-?-?-?-?- Negative 135 -?-?-?-?-?--?-?-?-?-?-?-?- KW- no vb/lof/ct x good fm. reactive NST. MIL in longterm-noticing some spikes in blood sugars with stress. still following with . 01/17/25 -?-?-?-?-?--?-?-?-?-?-?-?- 33w 3d 244 lb 9 oz 106/68 Nega tive -?-?-?-?-?-?-?-?-?-?-?-?- Negative 140 34 -?-?-?-?-?-?-?-?-?-?-?-?- MH-No VB, LOF. G ood FM. Reactive NST. FLu vaccine given 01/20/25 -?-?-?-?-?-?-?-?-?-?-?-?- 33w 6d 247 lb 7 oz 112/70 Nega tive -?-?-?-?-?-?-?-?-?-?-?-?- Negative 130 -?-?-?-?-?-?-?-?-?-?-?-?- KW- No vb/lof/ct x. good fm. reactive NST 01/24/25 -?-?-?-?-?-?-?-?-?-?-?-?- 34w 3d 250 lb 7 oz 103/69 Nega tive -?-?--?-?-?-?-?-?-?-?-?-?- Negative 135 -?-?-?-?-?-?-?-?-?-?-?-?- KW- no vb/lof/ct x. good fm reactive nst has growth US scheduled. blood sugars controlled. 01/27/25 -?-?-?-?-?-?-?-?-?-?-?-?- 34w 6d 249 lb 1 oz 113/74 Nega tive -?-?-?-?-?-?-?-?-?-?-?-?- Negative 130 -?-?-?-?-?-?-?-?-?-?-?-?- KW- NST only. no t reactive. to WP for BPP. ACOG First Trimester First Trimester: Desire for , Alcohol, Tobacco Cessation, Illicit/Recreational Drug/Substance Use, Intimate Partner Violence, Barriers to care, Unstable Housing, Communication Barriers, Environmental/Work Hazards, Anticipated Course of Care, Toxoplasmosis Precations, Use of Any med ications, Sexual activity, Dental Care, Sauna/Hot tub use, Seat Belt use, Childbirth classes/Hospital facilities, Travel, Indications for Ultrasound and Screening for Aneuploidy; Discussed Exercise and Discussed Second Trimester Second Trimester: Signs and Symptoms of Labor, Selecting a care provider, Reproductive Life Planning & Contreception, Care Planning, Tobacco Cessation, Depression/Anxiety and Intimate Partner Violence Third Trimester Third Trimester: Pain Management Plans, Labor support person(s), Immediate Larc, Movement Monitoring and Infant Feeding No ; Discussed Trial of Labor after Counseling and Discussed Circumcision preference ROS Const Reports system reviewed and no additional complaints, except as documented Eyes Reports system reviewed and no additional complaints, except as documented ENT Reports system reviewed and no additional complaints, except as documented Card Reports system reviewed and no additional complaints, except as documented Resp Reports system reviewed and no additional complaints, except as documented GI Reports system reviewed and no additional complaints, except as documented, Denies nausea and Denies vomiting Reports system reviewed and no additional complaints, except as documented Musc Reports system reviewed and no additional complaints, except as documented Skin/Breast Reports system reviewed and no additional complaints, except as documented Neuro Yes system reviewed and no additional complaints, except as documented Psych Reports system reviewed and no additional complaints, except as documented Endo Reports system reviewed and no additional complaints, except as documented Amol/Lymph Reports system reviewed and no additional complaints, except as documented Aller/Immun Reports system reviewed and no additional complaints, except as documented Exam Const General: cooperative, healthy appearing and no acute distress Orientation: alert, awake and oriented x3 Neck Neck: normal visual inspection and full ROM Resp Effort & Inspection: normal respiratory effort, able to speak in complete sentences and symmetric chest movement GI Inspection: normal to inspection Palpation: soft and other Other: gravid Skin General: no rashes or lesions noted Neuro General: patient alert, patient awake and patient oriented x3 Cognition: normal cognition Speech: speech normal Gait: normal gait Motor: muscle tone normal throughout Extrem General: normal to inspection and full ROM Psych Appearance: grossly normal Mental Status: mental status grossly normal Mood: congruent mood Affect: normal affect Speech and Movement: speech and movement normal Attitude: cooperative Thought Process: normal Thought Content: normal Judgment: judgment good Office Procedures Non-stress Test Non-Stress Test Indications for Monitoring: Yes diabetes Heart Rate Baseline: 130 Heart Rate Variability: moderate Movement: Present Heart Rate Accelerations: Absent Decelerations: Present (variable) Contractions: Absent Impression: Yes Non-reactive Non-stress test Results POC Urinalysis 2 Dip (Clinic) Office Urine Glucose Negative Last Edit by Ro Zuniga on 01/27/25 14 :17 Office Urine Protein Negative Last Edit by Ro Zuniga on 01/27/25 14 :17 Coding Level of Care Code Off vis,est,level 3 Diagnoses 34 weeks gestation of Z3A.34 Weeks of gestation: 34 weeks Supervision of high risk in third trimester O09.93 Trimester: third trimester Anxiety F41.9 History of gestational diabetes mellitus (GDM) in prior , currently O09.299; Z86.32 Obesity affecting in second trimester, unspecified obesity type O99.212 Obesity type affecting : unspecified obesity Trimester: second trimester Genital herpes affecting in third trimester O98.313; A60.09 Trimester: third trimester Multigravida of advanced maternal age in third trimester O09.523 Trimester: third trimester Urinary tract infection in mother during second trimester of O23.42 Trimester: second trimester Insulin resistance complicating O26.899; E88.819 Gestational diabetes mellitus (GDM) in second trimester controlled on oral hypoglycemic drug O24.415 Gestational diabetes mellitus control: oral hypoglycemic-controlled Trimester: second trimester Uterine size date discrepancy O26.849 CPT Codes Non-Stress Test (39372) Assessment and Plan Assessment and Plan (1) : Status: Acute Qualifiers: Weeks of gestation: 34 weeks Qualified Code(s): Z3A.34 - 34 weeks gestation of Comment: declined NIPT & Carrier testing, nl 3 HR GTT, nl anatomy (2) Supervision of high-risk : Status: Acute Qualifiers: Trimester: third trimester Qualified Code(s): O09.93 - Supervision of high risk , unspecified, third trimester Comment: PRR , ISIDRA 03/04/25, PC Aleksander Rodriguez, Farzad (3) Anxiety: Status: Acute Comment: zoloft stopped. Continue counseling 3 X a week. "feels much better off med" (4) History of gestational diabetes mellitus (GDM) in prior , currently: Status: Acute (5) Obesity affecting : Status: Acute Qualifiers: Obesity type affecting : unspecified obesity Trimester: secondtrimester Qualified Code(s):O99.212 - Obesity complicating , second trimester Comment: HGBA1C, BMI 33 (6) Genital herpes affecting : Status: Acute Qualifiers: Trimester: third trimester Qualified Code(s): O98.313 - Other infections with a predominantly sexual mode of transmission complicating , third trimester; A60.09 - Herpesviral infection of other urogenital tract Comment: valtrex at 34-36 weeks (7) AMA (advanced maternal age) multigravida 35+: Status: Acute Qualifiers: Trimester: third trimester Qualified Code(s): O09.523 - Supervision of elderly multigravida, third trimester Comment: discussed genetic testing. Patient declines. (8) UTI (urinary tract infection) during : Status: Acute Qualifiers: Trimester: second trimester Qualified Code(s): O23.42 - Unspecified infection of urinary tract in , second trimester (9) Insulin resistance complicating : Status: Acute Comment: on metformin; Dr Hall manages. Growth US 32 and 36 wk. Twice wkly NST at 32 wk. Del at 39 wk (10) Gestational diabetes: Status: Acute Qualifiers: Gestational diabetes mellitus control: oral hypoglycemic-controlled Trimester: second trimester Qualified Code(s): O24.415 - Gestational diabetes mellitus in , controlled by oral hypoglycemic drugs (11) Uterine size date discrepancy : Status: Acute Comment: growth US ordered:32 wk:EFW 68%, AC 98%. 36 w scheduled Orders: Orders POC Urinalysis 2 Dip (Clinic) Today OB NST Today O24.415 - Gestational diabetes mellitus in , controlled by oral hypoglycemic drugs Plan Details Additional Comments: ACOG trimester education reviewed and updated. see problem list details for updated plan management information and see below for orders placed atthis visit. GA appropriate handout given. 01/27/25 1443 s TAM> Date _ Alycia Torres CNM Cosigner Signature: Date (if applicable) CC: ~ [facility]10-16-2025 Progress note Author Alycia Torres [facility] Services Note Date/Time January 27, 2025 2 :38pm [facility] [address] [place] [address], [address] [place] [address] OFFICE VISIT Date of Service: 01/27/25 MR#: [id number] Acct: [id number] Name: BRITTANY ROCA Rep #: [id number] : 1985 Provider: RALPH Torres Age/Sex: 39/F [place] [facility] [place]: Signed Intake Vital Signs 01/06/25 08:44 01/24/25 10:21 01/27/25 14:01 Height 5 ft 10 in 5 ft 10 in 5 ft 10 in Weight: 250 lb 7 oz 249 lb 1 oz BMI 35.9 35.7 BP 103/69 113/74 Intake Visit Reasons: 35wk NST ONLY Drying Oven Tender Required: No Is patient in pain?: No Allergies avocado (avacado) Allergy (Intermediate, Verified 01/27/25 14:03) Swelling of tongue Medications ?Medication ?Instructions ?Recorded ?Confirmed ?Type mv-mn 110-FA 180 mcg-om3 35 mg-dha tab PO DAILY 01/27/25 History 25 mg-epa 5 mg-fish oil chew tablet flash glucose scanning reader #1 ea 08/31/24 01/27/25 Rx (FreeStyle Todd 2 [place]) flash glucose sensor (FreeStyle #1 ea 08/31/24 5 Rx Todd 2 Sensor kit) metformin 500 mg tablet 500 mg PO .COMPLEX #60 tabs 01/03/25 01/27/25 Rx valacyclovir 500 mg tablet 500 mg PO QDAY #30 tabs 11/0501/27/25 Rx Last Menstrual Period: 05/28/24 Zika: Zika virus screening: Negative : No PFSH PFSH Medical History Varicose veins of both lower extremities Seasonal allergies Normal vaginal delivery Superficial varicosities Depression Gestational diabetes PCOS (polycystic ovarian syndrome) Genital herpes affecting Surgical History History of tonsillectomy Family History Aunt Breast cancer, Onset Age: 40 Maternal- unknown if genetic testing was done. 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 occupational exposures/hazards: No pets and animals: Yes pets and animals: dog(s) history of recent travel: Yes (- June) out of state: Yes out of country: No sexually active: Yes Smoking Status: Never smoker second hand exposure: No alcohol intake: current alcohol intake frequency: holidays/special occasions only details: not while substance use type: does not use well-balanced diet: daily or most days caffeine: No eating out: 1-3 times/week during the past year weight has: increased > 10 lbs what type of physical activity do you participate in: other details: crossfit frequency: 1-2 times per week duration: 45-60 minutes/day amanda/latter-day: Scientologist seatbelt use: always do you feel safe at home: Yes additional social history: - Farzad History 3 Elective abortions Hx Para 2 Spontaneous abortions Hx # Term Pregnancies Ectopic pregnancies Hx # Pregnancies Multiple births # of living children 2 Past Pregnancies Del. Date Name GA/Weeks Outcome Route Bth Weight Gen Labor Lgth Anesthesia Del Locatn Provider FOB 08/26/18 Jennifer 40 live - full term 9lbs Female 16 hours none [facility] Farzad 10/24/20 Aleksander 39 live - full term 8#10oz Male epi dural [facility] Dr. Rainer Panda Delivery Date: 08/26/18 Last Updated by: Pauline Tay 3rd degree laceration; NICU for possible NEC- she did not have HPI 35wk NST ONLY Details: BRITTANY ROCA is a 39 year old who presents for routine OB visit. OB Visit ISIDRA Calculator Estimated Delivery Date Method Current WG Current Estimate 03/04/25 LMP (Certain) 34w 6d Other Estimates 03/10/25 Ultrasound #1 34w 0d 03/04/25 Ultrasound #2 34w 6d Initial Weight: Not Recorded Date -?-?-?-?-?-?-?-?-?-?-?-?- EGA Weight BP Urine Prot -?-?-?-?-?-?-?-?-?-?-?-?- Glucose FHR FuHt Pres Dilation -?-?-?-?-?-?-?-?-?-?-?-?- Effaced St Visit Note 07/28/24 -?-?-?-?-?-?-?-?-?-?-?-?- 8w 5d 233 lb 2 oz 129/79 -?-?-?-?-?-?-?-?-?-?-?-?- 170 -?-?-?-?-?-?-?-?-?-?-?-?- SM- CRL 1.4 not cons with LMP 08/13/24 -?-?-?-?-?-?-?-?-?-?-?-?- 11w 0d Negative -?-?--?-?-?-?-?-?-?-?-?-?- Negative -?-?-?-?-?-?-?-?-?-?-?-?- nurse visit for UTI sx. culture sent and rx for atb sent due to sx. 08/30/24 -?-?-?-?-?-?-?-?-?-?--?-?- 13w 3d 234 lb 6 oz 115/73 Nega tive -?-?-?-?-?-?-?-?-?-?-?-?- Negative 155 -?-?-?-?-?-?-?-?-?-?-?-?- JV- no lof, vagi nal bleeding, or cramping. due date cleared up. Needs clean catch test of cure and new ob labs 09/27/24 -?-?-?-?-?-?-?-?-?-?-?-?- 17w 3d 236 lb 6 oz 116/75 -?-?-?-?-?-?-?-?-?-?-?-?- 155 -?-?-?-?-?-?-?-?-?-?-?-?- KW- US scheduled with [facility]. no vb/cramping. +flutters. On metformin 500mg for Blood sugars. Reports fasting BS under 95. Encouraged to continue checking BS and follow up with DR Kim. doing well on ZOloft. KW- US scheduled with [facility]. n o vb/cramping. +flutters. On metformin 500mg for Blood sugars. Reports fasting BS under 95. Encouraged to continue checking BS- has not been consistent- and follow up with DR Kim. doing well on ZOloft. 10/25/24 -?-?-?-?-?-?-?-?-?-?-?-?- 21w 3d 236 lb 2 oz 122/70 Nega tive -?-?-?-?-?-?-?-?-?-?-?-?- Negative 142 -?-?-?-?-?-?-?-?-?-?-?-?- -No VB. Good F M. Insulin resistant/on metformin and seeing Dr Hall -No VB. Good FM. Insulin r esistant/on metformin and seeing Dr Hall. 11/25/24 -?-?-?-?-?-?-?-?-?-?-?-?- 25w 6d 236 lb 9 oz 97/64 Nega tive -?-?-?-?-?-?-?-?-?-?-?-?- Negative 140 26 -?-?-?-?-?-?-?-?-?-?-?-?- - no vb lof go od fm n oregular ctx 12/22/24 -?-?-?-?-?-?-?-?-?-?-?-?- 29w 5d 241 lb 8 oz 113/79 Nega tive -?-?-?-?-?-?-?-?-?-?-?-?- Negative 150 32 -?-?-?-?-?-?-?-?-?-?-?-?- - no vb/lof/ct x. jaziel mishra. following blood sugars. 1000mg of metformin nightly. growth US ordered for S>D 12/28/24 -?-?-?-?-?-?-?-?-?-?-?-?- 30w 4d 241 lb 6 oz 102/66 Nega tive -?-?-?-?-?-?-?-?-?-?-?-?- Negative 153 33 -?-?-?-?-?-?-?-?-?-?-?-?- MH-No VB,LOF, CT X. Good FM. Feeling more anxious, not sure zoloft working. Reassured concerning risks to . Discussed changing to buspar or increasing dosage. She prefers to increase dosage. Is seeing counselor 3 X month 01/06/25 -?-?-?-?-?-?-?-?-?-?-?-?- 31w 6d 243 lb 5 oz 105/65 Nega tive -?-?-?-?--?-?-?-?-?-?-?-?- Negative 157 34 -?-?-?-?-?-?-?-?-?-?-?-?- MH-No VB, LOF. G ood FM. Stopped zoloft completely and feels much better. Glucose levels followed per endo and at nl ranges. NSTs2 X wk start next week and has growth US next week 01/11/25 -?-?-?-?-?-?-?-?-?-?-?-?- 32w 4d 247 lb 2 oz 108/67 Nega tive -?-?-?-?-?-?-?-?-?--?-?-?- Negative 150 -?-?-?-?-?-?-?-?-?-?-?-?- JV- nst only tod ay. reactive. states metfomin is helping with fasting levels. followed by Dr. Hall. She has a growth scan now. 01/14/25 -?-?-?-?-?-?-?-?-?-?-?-?- 33w 0d 247 lb 3 oz 116/71 Nega tive -?-?-?-?-?-?-?-?-?-?-?-?- Negative 135 -?-?-?-?-?--?-?-?-?-?-?-?- KW- no vb/lof/ct x good fm. reactive NST. MIL in longterm-noticing some spikes in blood sugars with stress. still following with . 01/17/25 -?-?-?-?-?--?-?-?-?-?-?-?- 33w 3d 244 lb 9 oz 106/68 Nega tive -?-?-?-?-?-?-?-?-?-?-?-?- Negative 140 34 -?-?-?-?-?-?-?-?-?-?-?-?- MH-No VB, LOF. G ood FM. Reactive NST. FLu vaccine given 01/20/25 -?-?-?-?-?-?-?-?-?-?-?-?- 33w 6d 247 lb 7 oz 112/70 Nega tive -?-?-?-?-?-?-?-?-?-?-?-?- Negative 130 -?-?-?-?-?-?-?-?-?-?-?-?- KW- No vb/lof/ct x. good fm. reactive NST 01/24/25 -?-?-?-?-?-?-?-?-?-?-?-?- 34w 3d 250 lb 7 oz 103/69 Nega tive -?-?--?-?-?-?-?-?-?-?-?-?- Negative 135 -?-?-?-?-?-?-?-?-?-?-?-?- KW- no vb/lof/ct x. good fm reactive nst has growth US scheduled. blood sugars controlled. 01/27/25 -?-?-?-?-?-?-?-?-?-?-?-?- 34w 6d 249 lb 1 oz 113/74 Nega tive -?-?-?-?-?-?-?-?-?-?-?-?- Negative 130 -?-?-?-?-?-?-?-?-?-?-?-?- KW- NST only. no t reactive. to WP for BPP. ACOG First Trimester First Trimester: Desire for , Alcohol, Tobacco Cessation, Illicit/Recreational Drug/Substance Use, Intimate Partner Violence, Barriers to care, Unstable Housing, Communication Barriers, Environmental/Work Hazards, Anticipated Course of Care, Toxoplasmosis Precations, Use of Any medications, Sexual activity, Dental Care, Sauna/Hot tub use, Seat Belt use, Childbirth classes/Hospital facilities, Travel, Indications for Ultrasound and Screening for Aneuploidy; Discussed Exercise and Discussed Second Trimester Second Trimester: Signs and Symptoms of Labor, Selecting a care provider, Reproductive Life Planning & Contreception, Care Planning, Tobacco Cessation, Depression/Anxiety and Intimate Partner Violence Third Trimester Third Trimester: Pain Management Plans, Labor support person(s), Immediate Larc, Movement Monitoring and Infant Feeding No ; Discussed Trial of Labor after Counseling and Discussed Circumcision preference ROS Const Reports system reviewed and no additional complaints, except as documented Eyes Reports system reviewed and no additional complaints, except as documented ENT Reports system reviewed and no additional complaints, except as documented Card Reports system reviewed and no additional complaints, except as documented Resp Reports system reviewed and no additional complaints, except as documented GI Reports system reviewed and no additional complaints, except as documented, Denies nausea and Denies vomiting Reports system reviewed and no additional complaints, except as documented Musc Reports system reviewed and no additional complaints, except as documented Skin/Breast Reports system reviewed and no additional complaints, except as documented Neuro Yes system reviewed and no additional complaints, except as documented Psych Reports system reviewed and no additional complaints, except as documented Endo Reports system reviewed and no additional complaints, except as documented Amol/Lymph Reports system reviewed and no additional complaints, except as documented Aller/Immun Reports system reviewed and no additional complaints, except as documented Exam Const General: cooperative, healthy appearing and no acute distress Orientation: alert, awake and oriented x3 Neck Neck: normal visual inspection and full ROM Resp Effort & Inspection: normal respiratory effort, able to speak in complete sentences and symmetric chest movement GI Inspection: normal to inspection Palpation: soft and other Other: gravid Skin General: no rashes or lesions noted Neuro General: patient alert, patient awake and patient oriented x3 Cognition: normal cognition Speech: speech normal Gait: normal gait Motor: muscle tone normal throughout Extrem General: normal to inspection and full ROM Psych Appearance: grossly normal Mental Status: mental status grossly normal Mood: congruent mood Affect: normal affect Speech and Movement: speech and movement normal Attitude: cooperative Thought Process: normal Thought Content: normal Judgment: judgment good Office Procedures Non-stress Test Non-Stress Test Indications for Monitoring: Yes diabetes Heart Rate Baseline: 130 Heart Rate Variability: moderate Movement: Present Heart Rate Accelerations: Absent Decelerations: Present (variable) Contractions: Absent Impression: Yes Non-reactive Non-stress test Results POC Urinalysis 2 Dip (Clinic) Office Urine Glucose Negative Last Edit by Ro Zuniga on 01/27/25 14 :17 Office Urine Protein Negative Last Edit by Ro Zuniga on 01/27/25 14 :17 Coding Level of Care Code Off vis,est,level 3 Diagnoses 34 weeks gestation of Z3A.34 Weeks of gestation: 34 weeks Supervision of high risk in third trimester O09.93 Trimester: third trimester Anxiety F41.9 History of gestational diabetes mellitus (GDM) in prior , currently O09.299; Z86.32 Obesity affecting in second trimester, unspecified obesity type O99.212 Obesity type affecting : unspecified obesity Trimester: second trimester Genital herpes affecting in third trimester O98.313; A60.09 Trimester: third trimester Multigravida of advanced maternal age in third trimester O09.523 Trimester: third trimester Urinary tract infection in mother during second trimester of O23.42 Trimester: second trimester Insulin resistance complicating O26.899; E88.819 Gestational diabetes mellitus (GDM) in second trimester controlled on oral hypoglycemic drug O24.415 Gestational diabetes mellitus control: oral hypoglycemic-controlled Trimester: second trimester Uterine size date discrepancy O26.849 CPT Codes Non-Stress Test (65484) Assessment and Plan Assessment and Plan (1) : Status: Acute Qualifiers: Weeks of gestation: 34 weeks Qualified Code(s): Z3A.34 - 34 weeks gestation of Comment: declined NIPT & Carrier testing, nl 3 HR GTT, nl anatomy (2) Supervision of high-risk : Status: Acute Qualifiers: Trimester: third trimester Qualified Code(s): O09.93 - Supervision of high risk , unspecified, third trimester Comment: PRR , ISIDRA 03/04/25, PC Aleksander Rodriguez, Farzad (3) Anxiety: Status: Acute Comment: zoloft stopped. Continue counseling 3 X a week. "feels much better off med" (4) History of gestational diabetes mellitus (GDM) in prior , currently: Status: Acute (5) Obesity affecting : Status: Acute Qualifiers: Obesity type affecting : unspecified obesity Trimester: secondtrimester Qualified Code(s): O99.212 - Obesity complicating , second trimester Comment: HGBA1C, BMI 33 (6) Genital herpes affecting : Status: Acute Qualifiers: Trimester: third trimester Qualified Code(s): O98.313 - Other infections with a predominantly sexual mode of transmission complicating , third trimester; A60.09 - Herpesviral infection of other urogenital tract Comment: valtrex at 34-36 weeks (7) AMA (advanced maternal age) multigravida 35+: Status: Acute Qualifiers: Trimester: third trimester Qualified Code(s): O09.523 - Supervision of elderly multigravida, third trimester Comment: discussed genetic testing. Patient declines. (8) UTI (urinary tract infection) during : Status: Acute Qualifiers: Trimester: second trimester Qualified Code(s): O23.42 - Unspecified infection of urinary tract in , second trimester (9) Insulin resistance complicating : Status: Acute Comment: on metformin; Dr Hall manages. Growth US 32 and 36 wk. Twice wkly NST at 32 wk. Del at 39 wk (10) Gestational diabetes: Status: Acute Qualifiers: Gestational diabetes mellitus control: oral hypoglycemic-controlled Trimester: second trimester Qualified Code(s): O24.415 - Gestational diabetes mellitus in , controlled by oral hypoglycemic drugs (11) Uterine size date discrepancy : Status: Acute Comment: growth US ordered:32 wk:EFW 68%, AC 98%. 36 w scheduled Orders: Orders POC Urinalysis 2 Dip (Clinic) Today OB NST Today O24.415 - Gestational diabetes mellitus in , controlled by oral hypoglycemic drugs Plan Details Additional Comments: ACOG trimester education reviewed and updated. see problem list details for updated plan management information and see below for orders placed at this visit. [place] appropriate handout given. 01/27/25 [id number] <Electronically signed by Alycia godinez CNM> Date _ Alycia Torres CNM Cosigner Signature: Date (if applicable) CC: ~ [facility] Work Phone: [phone] [facility] [address], [address] [place] [id number] OFFICE VISIT Date of Service: 01/24/25 MR#: [id number] Acct: [id number] Name: BRITTANY ROCA Rep #: [id number] : 1985 Provider: RALPH Torres Age/Sex: 39/F [place] [facility] [place]: Signed Intake Vital Signs 01/06/25 08:44 01/17/25 09:59 01/20/25 14:02 01/24/25 10:21 Height 5 ft 10 in 5 ft 10 in 5 ft 10 in 5 ft 10 in Weight: 244 lb 9 oz 247 lb 7 oz 250 lb 7 oz BMI 35.1 35.4 35.9 BP 106/68 112/70 103/69 Intake Visit Reasons: 35wk ob/nst Chief Complaint: 35wk OB Drying Oven Tender Required: No Is patient in pain?: No Allergies avocado (avacado) Allergy (Intermediate, Verified 01/24/25 10:19) Swelling of tongue Medications ?Medication ?Instructions ?Recorded ?Confirmed ?Type mv-mn 110-FA 180 mcg-om3 35 mg-dha tab PO DAILY 01/24/25 History 25 mg-epa 5 mg-fish oil chew tablet flash glucose scanning reader #1 ea 08/31/24 01/24/25 Rx (FreeStyle Todd 2 [place]) flash glucose sensor (FreeStyle #1 ea 08/31/24 5 Rx Todd 2 Sensor kit) metformin 500 mg tablet 500 mg PO .COMPLEX #60 tabs 01/03/25 01/24/25 Rx valacyclovir 500 mg tablet 500 mg PO QDAY #30 tabs 11/0501/24/25 Rx Last Menstrual Period: 05/28/24 : No Have you fallen in the past year?: No PFSH PFSH Medical History Varicose veins of both lower extremities Seasonal allergies Normal vaginal delivery Superficial varicosities Depression Gestational diabetes PCOS (polycystic ovarian syndrome) Genital herpes affecting Surgical History History of tonsillectomy Family History Aunt Breast cancer, Onset Age: 40 Maternal- unknown if genetic testing was done. 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 occupational exposures/hazards: No pets and animals: Yes pets and animals: dog(s) history of recent travel: Yes (- June) out of state: Yes out of country: No sexually active: Yes Smoking Status: Never smoker second hand exposure: No alcohol intake: current alcohol intake frequency: holidays/special occasions only details: not while substance use type: does not use well-balanced diet: daily or most days caffeine: No eating out: 1-3 times/week during the past year weight has: increased > 10 lbs what type of physical activity do you participate in: other details: crossfit frequency: 1-2 times per week duration: 45-60 minutes/day amanda/latter-day: Scientologist seatbelt use: always do you feel safe at home: Yes additional social history: - Farzad History 3 Elective abortions Hx Para 2 Spontaneous abortions Hx # Term Pregnancies Ectopic pregnancies Hx # Pregnancies Multiple births # of living children 2 Past Pregnancies Del. Date Name GA/Weeks Outcome Route Bth Weight Gen Labor Lgth Anesthesia Del Locatn Provider FOB 08/26/18 Jennifer 40 live - full term 9lbs Female 16 hours none [facility] ZACH Panda 10/24/20 Aleksander 39 live - full term 8#10oz Male epi dural [facility] Dr. Rainer Panda Delivery Date: 08/26/18 Last Updated by: Pauline Tay 3rd degree laceration; NICU for possible NEC- she did not have HPI 35wk ob/nst Details: BRITTANY ROCA is a 39 year old who presents for routine OB visit. OB Visit ISIDRA Calculator Estimated Delivery Date Method Current WG Current Estimate 03/04/25 LMP (Certain) 34w 3d Other Estimates 03/10/25 Ultrasound #1 33w 4d 03/04/25 Ultrasound #2 34w 3d Initial Weight: Not Recorded Date -?-?-?-?-?-?-?-?-?-?-?-?- EGA Weight BP Urine Prot -?-?-?-?-?-?-?-?-?-?-?-?- Glucose FHR FuHt Pres Dilation -?-?-?-?-?-?-?-?-?-?-?-?- Effaced St Visit Note 07/28/24 -?-?-?-?-?-?-?-?-?-?-?-?- 8w 5d 233 lb 2 oz 129/79 -?-?-?-?-?-?-?-?-?-?-?-?- 170 -?-?-?-?-?-?-?-?-?-?-?-?- SM- CRL 1.4 not cons with LMP 08/13/24 -?-?-?-?-?-?-?-?-?-?-?-?- 11w 0d Negative -?-?-?-?-?-?-?-?-?-?-?-?- Negative -?-?-?-?-?-?-?-?-?-?-?-?- nurse visit for UTI sx. culture sent and rx for atb sent due to sx. 08/30/24 -?-?-?-?-?-?-?-?-?-?-?-?- 13w 3d 234 lb 6 oz 115/73 Nega tive -?-?-?-?-?-?-?-?-?-?-?-?- Negative 155 -?-?-?-?-?-?-?-?-?-?-?-?- JV- no lof, vagi nal bleeding, or cramping. due date cleared up. Needs clean catch test of cure and new ob labs 09/27/24 -?-?-?-?-?-?-?-?-?-?-?-?- 17w 3d 236 lb 6 oz 116/75 -?-?-?-?-?-?-?-?-?-?-?-?- 155 -?-?-?-?-?-?-?-?-?-?-?-?- KW- US scheduled with [facility]. no vb/cramping. +flutters. On metformin 500mg for Blood sugars. Reports fasting BS under 95. Encouraged to continue checking BS and follow up with Renny. doing well on ZOloft. KW- US scheduled with [facility]. n o vb/cramping. +flutters. On metformin 500mg for Blood sugars. Reports fasting BS under 95. Encouraged to continue checking BS- has not been consistent- and follow up with DR Kim. doing well on ZOloft. 10/25/24 -?-?-?-?-?-?-?-?-?-?-?-?- 21w 3d 236 lb 2 oz 122/70 Nega tive -?-?-?-?-?-?-?-?-?-?-?-?- Negative 142 -?-?-?-?-?-?-?-?-?-?-?-?- -No VB. Jaziel F M. Insulin resistant/on metformin and seeing Dr Hall -No VB. Good FM. Insulin r esistant/on metformin and seeing Dr Hall. 11/25/24 -?-?-?-?-?-?-?-?-?-?--?-?- 25w 6d 236 lb 9 oz 97/64 Nega tive -?-?-?-?-?-?-?-?-?-?-?-?- Negative 140 26 -?-?-?-?-?-?-?-?-?-?-?-?- SM- no vb lof go od fm n oregular ctx 12/22/24 -?-?-?-?-?-?-?-?-?-?-?-?- 29w 5d 241 lb 8 oz 113/79 Nega tive -?-?-?-?-?-?-?-?-?-?-?-?- Negative 150 32 -?-?-?-?-?-?-?-?-?--?-?-?- KW- no vb/lof/ct x. good fm. following blood sugars. 1000mg of metformin nightly. growth US ordered for S>D 12/28/24 -?-?-?-?-?-?-?-?-?-?-?-?- 30w 4d 241 lb 6 oz 102/66 Nega tive -?-?-?-?-?-?-?-?-?-?-?-?- Negative 153 33 -?-?-?-?-?-?-?-?-?-?-?-?- MH-No VB,LOF, CT X. Good FM. Feeling more anxious, not sure zoloft working. Reassured concerning risks to . Discussed changing to buspar or increasing dosage. She prefers to increase dosage. Is seeing counselor 3 X month 01/06/25 -?-?-?-?-?-?-?-?-?-?-?-?- 31w 6d 243 lb 5 oz 105/65 Nega tive -?-?-?-?-?-?-?-?-?-?-?-?- Negative 157 34 -?-?-?-?-?-?-?-?-?-?-?-?- MH-No VB, LOF. G ood FM. Stopped zoloft completely and feels much better. Glucose levels followed per endo and at nl ranges. NSTs2 X wk start next week and has growth US next week 01/11/25 -?--?-?-?-?-?-?-?-?-?-?-?- 32w 4d 247 lb 2 oz 108/67 Nega tive -?-?-?-?-?-?-?-?-?-?-?-?- Negative 150 -?-?-?-?-?-?-?-?-?-?-?-?- JV- nst only tod ay. reactive. states metfomin is helping with fasting levels. followed by Dr. Hall. She has a growth scan now. 01/14/25 -?-?-?-?-?-?-?-?-?-?-?-?- 33w 0d 247 lb 3 oz 116/71 Nega tive -?-?-?-?-?-?-?-?-?-?-?-?- Negative 135 -?-?-?-?-?-?-?-?-?-?-?-?- KW- no vb/lof/ct x good fm. reactive NST. MIL in longterm-noticing some spikes in blood sugars with stress. still following with Rafael. 01/17/25 -?-?-?-?-?-?-?-?-?-?-?-?- 33w 3d 244 lb 9 oz 106/68 Nega tive -?-?-?-?-?-?-?-?-?-?-?-?- Negative 140 34 -?-?-?-?-?-?-?-?-?-?-?-?- MH-No VB, LOF. G ood FM. Reactive NST. FLu vaccine given 01/20/25 -?-?-?-?-?-?-?-?-?-?-?-?- 33w 6d 247 lb 7 oz 112/70 Nega tive -?-?-?-?-?-?-?-?-?-?-?-?- Negative 130 -?-?-?-?-?-?-?-?-?-?-?-?- KW- No vb/lof/ct x. good fm. reactive NST 01/24/25 -?-?-?-?-?-?-?-?-?-?-?-?- 34w 3d 250 lb 7 oz 103/69 Nega tive -?-?-?-?-?-?-?-?-?-?-?-?- Negative 135 -?-?-?-?-?-?-?-?-?-?-?-?- KW- no vb/lof/ct x. good fm reactive nst has growth US scheduled. blood sugars controlled. ACOG First Trimester First Trimester: Desire for , Alcohol, Tobacco Cessation, Illicit/Recreational Drug/Substance Use, Intimate Partner Violence, Barriers to care, Unstable Housing, Communication Barriers, Environmental/Work Hazards, Anticipated Course of Care, Toxoplasmosis Precations, Use of Any med ications, Sexual activity, Dental Care, Sauna/Hot tub use, Seat Belt use, Childbirth classes/Hospital facilities, Travel, Indications for Ultrasound and Screening for Aneuploidy; Discussed Exercise and Discussed Second Trimester Second Trimester: Signs and Symptoms of Labor, Selecting a care provider, Reproductive Life Planning & Contreception, Care Planning, Tobacco Cessation, Depression/Anxiety and Intimate Partner Violence Third Trimester Third Trimester: Pain Management Plans, Labor support person(s), Immediate Larc, Movement Monitoring and Infant Feeding No ; Discussed Trial of Labor after Counseling and Discussed Circumcision preference ROS Const Reports system reviewed and no additional complaints, except as documented Eyes Reports system reviewed and no additional complaints, except as documented ENT Reports system reviewed and no additional complaints, except as documented Card Reports system reviewed and no additional complaints, except as documented Resp Reports system reviewed and no additional complaints, except as documented GI Reports system reviewed and no additional complaints, except as documented, Denies nausea and Denies vomiting Reports system reviewed and no additional complaints, except as documented Musc Reports system reviewed and no additional complaints, except as documented Skin/Breast Reports system reviewed and no additional complaints, except as documented Neuro Yes system reviewed and no additional complaints, except as documented Psych Reports system reviewed and no additional complaints, except as documented Endo Reports system reviewed and no additional complaints, except as documented Amol/Lymph Reports system reviewed and no additional complaints, except as documented Aller/Immun Reports system reviewed and no additional complaints, except as documented Exam Const General: cooperative, healthy appearing and no acute distress Orientation: alert, awake and oriented x3 Neck Neck: normal visual inspection and full ROM Resp Effort & Inspection: normal respiratory effort, able to speak in complete sentences and symmetric chest movement GI Inspection: normal to inspection Palpation: soft and other Other: gravid Skin General: no rashes or lesions noted Neuro General: patient alert, patient awake and patient oriented x3 Cognition: normal cognition Speech: speech normal Gait: normal gait Motor: muscle tone normal throughout Extrem General: normal to inspection and full ROM Psych Appearance: grossly normal Mental Status: mental status grossly normal Mood: congruent mood Affect: normal affect Speech and Movement: speech and movement normal Attitude: cooperative Thought Process: normal Thought Content: normal Judgment: judgment good Office Procedures Non-stress Test Non-Stress Test Indications for Monitoring: Yes diabetes Heart Rate Baseline: 135 Heart Rate Variability: moderate Movement: Present Heart Rate Accelerations: Present Decelerations: Absent Contractions: Absent Impression: Yes Reactive Non-Stress Test Results POC Urinalysis 2 Dip (Clinic) Office Urine Glucose Negative Last Edit by Indy Yoder on 01/24/25 10:31 Office Urine Protein Negative Last Edit by Indy Yoder on 01/24/25 10:31 Coding Level of Care Code Off vis,est,level 3 Diagnoses Uterine size date discrepancy O26.849 Gestational diabetes mellitus (GDM) in second trimester controlled on oral hypoglycemic drug O24.415 Gestational diabetes mellitus control: oral hypoglycemic-controlled Trimester: second trimester Insulin resistance complicating O26.899; E88.819 Urinary tract infection in mother during second trimester of O23.42 Trimester: second trimester Multigravida of advanced maternal age in third trimester O09.523 Trimester: third trimester Genital herpes affecting in third trimester O98.313; A60.09 Trimester: third trimester Obesity affecting in second trimester, unspecified obesity type O99.212 Obesity type affecting : unspecified obesity Trimester: second trimester History of gestational diabetes mellitus (GDM) in prior , currently O09.299; Z86.32 Anxiety F41.9 Supervision of high risk in third trimester O09.93 Trimester: third trimester 34 weeks gestation of Z3A.34 Weeks of gestation: 34 weeks CPT Codes Non-Stress Test (04110) Assessment and Plan Assessment and Plan (1) Uterine size date discrepancy : Status: Acute Comment: growth US ordered:32 wk:EFW 68%, AC 98%. 36 w scheduled (2) Gestational diabetes: Status: Acute Qualifiers: Gestational diabetes mellitus control: oral hypoglycemic-controlled Trimester: second trimester Qualified Code(s): O24.415 - Gestational diabetes mellitus in , controlled by oral hypoglycemic drugs (3) Insulin resistance complicating : Status: Acute Comment: on metformin; Dr Hall manages. Growth US 32 and 36 wk. Twice wkly NST at 32 wk. Del at 39 wk (4) UTI (urinary tract infection) during : Status: Acute Qualifiers: Trimester: second trimester Qualified Code(s): O23.42 - Unspecified infection of urinary tract in , second trimester (5) AMA (advanced maternal age) multigravida 35+: Status: Acute Qualifiers: Trimester: third trimester Qualified Code(s): O09.523 - Supervision of elderly multigravida, third trimester Comment: discussed genetic testing. Patient declines. (6) Genital herpes affecting : Status: Acute Qualifiers: Trimester: third trimester Qualified Code(s): O98.313 - Other infections with a predominantly sexual mode of transmission complicating , third trimester; A60.09 - Herpesviral infection of other urogenital tract Comment: valtrex at 34-36 weeks (7) Obesity affecting : Status: Acute Qualifiers: Obesity type affecting : unspecified obesity Trimester: secondtrimester Qualified Code(s):O99.212 - Obesity complicating , second trimester Comment: HGBA1C, BMI 33 (8) History of gestational diabetes mellitus (GDM) in prior , currently: Status: Acute (9) Anxiety: Status: Acute Comment: zoloft stopped. Continue counseling 3 X a week. "feels much better off med" (10) Supervision of high-risk : Status: Acute Qualifiers: Trimester: third trimester Qualified Code(s): O09.93 - Supervision of high risk , unspecified, third trimester Comment: PRR , ISIDRA 03/04/25, PC Aleksander Rodriguez, Farzad (11) : Status: Acute Qualifiers: Weeks of gestation: 34 weeks Qualified Code(s): Z3A.34 - 34 weeks gestation of Comment: declined NIPT & Carrier testing, nl 3 HR GTT, nl anatomy Orders: Orders POC Urinalysis 2 Dip (Clinic) Today OB NST Today E88.819 - Insulin resistance, unspecified, O09.93 - Supervision ofhigh risk ,unspecified, third trimester, O26.899 - Other specified related conditions, unspecified trimester, Z3A.33 - 33 weeks gestationof Plan Details Additional Comments: ACOG trimester education reviewed and updated. see problem list details for updated plan management information and see below for orders placed atthis visit. [place] appropriate handout given. Clinical Quality Measures Falls Risk Screening/Assistive Devices Have you fallen in the past year?: No 01/24/25 1050 s CNM> Date _ [facility]lycia [facility] Signature: Date (if applicable) CC: ~ [facility]10-09-2025 [facility] [address] [place] [address], [address] [place] [address] OFFICE VISIT Date of Service: 01/20/25 MR#: [id number] Acct: [id number] Name: BRITTANY ROCA Rep #: [id number] : 1985 Provider: RALPH Torres Age/Sex: 39/F Location[place] [facility] [place] Status: Signed Intake Vital Signs 01/06/25 08:44 01/17/25 09:59 01/20/25 14:02 Height 5 ft 10 in 5 ft 10 in 5 ft 10 in Weight: 244 lb 9 oz 247 lb 7 oz BMI 35.1 35.4 BP 106/68 112/70 Intake Visit Reasons: 34wk NST ONLY Drying Oven Tender Required: No Is patient in pain?: No Allergies avocado (avacado) Allergy (Intermediate, Verified 01/20/25 14:06) Swelling of tongue Medications ?Medication ?Instructions ?Recorded ?Confirmed ?Type mv-mn 110-FA 180 mcg-om3 35 mg-dha tab PO DAILY 01/20/25 History 25 mg-epa 5 mg-fish oil chew tablet flash glucose scanning reader #1 ea 08/31/24 01/20/25 Rx (FreeStyle Todd 2 [place]) flash glucose sensor (FreeStyle #1 ea 08/31/24 5 Rx Todd 2 Sensor kit) metformin 500 mg tablet 500 mg PO .COMPLEX #60 tabs 01/03/25 01/20/25 Rx valacyclovir 500 mg tablet 500 mg PO QDAY #30 tabs 11/0501/20/25 Rx Last Menstrual Period: 05/28/24 Zika: Zika virus screening: Negative : No PFSH PFSH Medical History Varicose veins of both lower extremities Seasonal allergies Normal vaginal delivery Superficial varicosities Depression Gestational diabetes PCOS (polycystic ovarian syndrome) Genital herpes affecting Surgical History History of tonsillectomy Family History Aunt Breast cancer, Onset Age: 40 Maternal- unknown if genetic testing was done. 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 occupational exposures/hazards: No pets and animals: Yes pets and animals: dog(s) history of recent travel: Yes (- June) out of state: Yes out of country: No sexually active: Yes Smoking Status: Never smoker second hand exposure: No alcohol intake: current alcohol intake frequency: holidays/special occasions only details: not while substance use type: does not use well-balanced diet: daily or most days caffeine: No eating out: 1-3 times/week during the past year weight has: increased > 10 lbs what type of physical activity do you participate in: other details: crossfit frequency: 1-2 times per week duration: 45-60 minutes/day amanda/latter-day: Scientologist seatbelt use: always do you feel safe at home: Yes additional social history: - Farzad History 3 Elective abortions Hx Para 2 Spontaneous abortions Hx # Term Pregnancies Ectopic pregnancies Hx # Pregnancies Multiple births # of living children 2 Past Pregnancies Del. Date Name GA/Weeks Outcome Route Bth Weight Infant Gen Labor Lgth Anesthesia Del Locatn Provider FONieves 08/26/18 Jennifer 40 live - full term 9lbs Female 16 hours none [facility] ZACH Panda 10/24/20 Aleksander 39 live - full term 8#10oz Male epi dural [facility] Dr. Rainer Panda Delivery Date: 08/26/18 Last Updated by: Pauline Tay 3rd degree laceration; NICU for possible NEC- she did not have HPI 34wk NST ONLY Details: BRITTANY ROCA is a 39 year old who presents for routine OB visit. OB Visit ISIDRA Calculator Estimated Delivery Date Method Current WG Current Estimate 03/04/25 LMP (Certain) 33w 6d Other Estimates 03/10/25 Ultrasound #1 33w 0d 03/04/25 Ultrasound #2 33w 6d Initial Weight: Not Recorded Date -?-?-?-?-?-?-?-?-?-?--?-?- EGA Weight BP Urine Prot -?-?-?-?-?-?-?-?-?-?-?-?- Glucose FHR FuHt Pres Dilation -?-?-?-?-?-?-?-?-?-?-?-?- Effaced St Visit Note 07/28/24 -?-?-?-?-?-?-?-?-?-?-?-?- 8w 5d 233 lb 2 oz 129/79 -?-?-?-?-?-?-?-?-?-?-?-?- 170 -?-?-?-?-?-?-?-?-?-?-?-?- SM- CRL 1.4 not cons with LMP 08/13/24 -?-?-?-?-?-?-?-?-?-?-?-?- 11w 0d Negative -?-?-?-?-?-?-?-?-?-?-?-?- Negative -?-?-?-?-?-?-?-?-?-?-?-?- nurse visit for UTI sx. culture sent and rx for atb sent due to sx. 08/30/24 -?-?-?-?-?-?-?-?-?-?-?-?- 13w 3d 234 lb 6 oz 115/73 Nega tive -?-?-?-?-?-?-?-?-?-?-?-?- Negative 155 -?-?-?-?-?-?-?-?-?-?-?-?- JV- no lof, vagi nal bleeding, or cramping. due date cleared up. Needs clean catch test of cure and new ob labs 09/27/24 -?-?-?-?-?-?-?-?-?-?-?-?- 17w 3d 236 lb 6 oz 116/75 -?-?-?-?-?-?-?-?-?-?-?-?- 155 -?-?-?-?-?-?-?-?-?-?-?-?- KW- US scheduled with [facility]. no vb/cramping. +flutters. On metformin 500mg for Blood sugars. Reports fasting BS under 95. Encouraged to continue checking BS and follow up with Renny. doing well on ZOloft. KW- US scheduled with [facility]. n o vb/cramping. +flutters. On metformin 500mg for Blood sugars. Reports fasting BS under 95. Encouraged to continue checking BS- has not been consistent- and follow up with DR Kim. doing well on ZOloft. 10/25/24 -?-?-?-?-?-?-?-?-?-?-?-?- 21w 3d 236 lb 2 oz 122/70 Nega tive -?-?-?-?-?-?-?-?-?-?-?-?- Negative 142 -?-?-?-?-?-?-?-?-?-?-?-?- -No VB. Good F M. Insulin resistant/on metformin and seeing Dr Hall -No VB. Good FM. Insulin r esistant/on metformin and seeing Dr Hall. 11/25/24 -?-?-?-?-?-?-?-?-?-?-?-?- 25w 6d 236 lb 9 oz 97/64 Nega tive -?-?-?-?-?-?-?-?-?-?-?-?- Negative 140 26 -?-?-?-?-?-?-?-?-?-?-?-?- SM- no vb lof go od fm n oregular ctx 12/22/24 -?-?-?-?-?-?-?-?-?-?-?-?- 29w 5d 241 lb 8 oz 113/79 Nega tive -?-?-?-?-?-?-?-?-?-?-?-?- Negative 150 32 -?-?-?-?-?-?-?-?-?-?-?-?- KW- no vb/lof/ct x. good fm. following blood sugars. 1000mg of metformin nightly. growth US ordered for S>D 12/28/24 -?-?-?-?-?-?-?-?-?-?-?-?- 30w 4d 241 lb 6 oz 102/66 Nega tive -?-?-?-?-?-?-?-?-?-?-?-?- Negative 153 33 -?-?-?-?-?-?-?-?-?-?-?-?- MH-No VB,LOF, CT X. Good FM. Feeling more anxious, not sure zoloft working. Reassured concerning risks to . Discussed changing to buspar or increasing dosage. She prefers to increase dosage. Is seeing counselor 3 X month 01/06/25 -?-?-?-?-?-?-?-?-?-?-?-?- 31w 6d 243 lb 5 oz 105/65 Nega tive -?-?-?-?-?-?-?-?-?-?-?-?- Negative 157 34 -?-?-?-?-?-?-?-?-?-?-?-?- MH-No VB, LOF. G ood FM. Stopped zoloft completely and feels much better. Glucose levels followed per endo and at nl ranges. NSTs2 X wk start next week and has growth US next week 01/11/25 -?-?-?-?-?-?-?-?-?-?-?-?- 32w 4d 247 lb 2 oz 108/67 Nega tive -?-?-?-?-?-?-?-?-?-?-?-?- Negative 150 -?-?-?-?-?-?-?-?-?-?-?-?- JV- nst only tod ay. reactive. states metfomin is helping with fasting levels. followed by Dr. Hall. She has a growth scan now. 01/14/25 -?-?-?-?-?-?-?-?-?-?-?-?- 33w 0d 247 lb 3 oz 116/71 Nega tive -?-?-?-?-?-?-?-?-?-?-?-?- Negative 135 -?-?-?-?-?-?-?-?-?-?-?-?- KW- no vb/lof/ct x good fm. reactive NST. MIL in longterm-noticing some spikes in blood sugars with stress. still following with . 01/17/25 -?-?-?-?-?-?-?-?-?-?-?-?- 33w 3d 244 lb 9 oz 106/68 Nega tive -?-?-?-?-?-?-?-?-?-?-?-?- Negative 140 34 -?-?-?-?-?-?-?-?-?-?-?-?- MH-No VB, LOF. G ood FM. Reactive NST. FLu vaccine given 01/20/25 -?-?-?-?-?-?-?-?-?-?-?-?- 33w 6d 247 lb 7 oz 112/70 Nega tive -?-?-?-?-?-?-?-?-?-?-?-?- Negative 130 -?-?-?-?-?-?-?-?-?-?-?-?- KW- No vb/lof/ct x. good fm. reactive NST ACOG First Trimester First Trimester: Desire for , Alcohol, Tobacco Cessation, Illicit/Recreational Drug/Substance Use, Intimate Partner Violence, Barriers to care, Unstable Housing, Communication Barriers, Environmental/Work Hazards, Anticipated Course of Care, Toxoplasmosis Precations, Use of Any med ications, Sexual activity, Dental Care, Sauna/Hot tub use, Seat Belt use, Childbirth classes/Hospital facilities, Travel, Indications for Ultrasound and Screening for Aneuploidy; Discussed Exercise and Discussed Second Trimester Second Trimester: Signs and Symptoms of Labor, Selecting a care provider, Reproductive Life Planning & Contreception, Care Planning, Tobacco Cessation, Depression/Anxiety and Intimate Partner Violence Third Trimester Third Trimester: Pain Management Plans, Labor support person(s), Immediate Larc, Movement Monitoring and Infant Feeding No ; Discussed Trial of Labor after Counseling and Discussed Circumcision preference ROS Const Reports system reviewed and no additional complaints, except as documented Eyes Reports system reviewed and no additional complaints, except as documented ENT Reports system reviewed and no additional complaints, except as documented Card Reports system reviewed and no additional complaints, except as documented Resp Reports system reviewed and no additional complaints, except as documented GI Reports system reviewed and no additional complaints, except as documented, Denies nausea and Denies vomiting Reports system reviewed and no additional complaints, except as documented Musc Reports system reviewed and no additional complaints, except as documented Skin/Breast Reports system reviewed and no additional complaints, except as documented Neuro Yes system reviewed and no additional complaints, except as documented Psych Reports system reviewed and no additional complaints, except as documented Endo Reports system reviewed and no additional complaints, except as documented Amol/Lymph Reports system reviewed and no additional complaints, except as documented Aller/Immun Reports system reviewed and no additional complaints, except as documented Exam Const General: cooperative, healthy appearing and no acute distress Orientation: alert, awake and oriented x3 Neck Neck: normal visual inspection and full ROM Resp Effort & Inspection: normal respiratory effort, able to speak in complete sentences and symmetric chest movement GI Inspection: normal to inspection Palpation: soft and other Other: gravid Skin General: no rashes or lesions noted Neuro General: patient alert, patient awake and patient oriented x3 Cognition: normal cognition Speech: speech normal Gait: normal gait Motor: muscle tone normal throughout Extrem General: normal to inspection and full ROM Psych Appearance: grossly normal Mental Status: mental status grossly normal Mood: congruent mood Affect: normal affect Speech and Movement: speech and movement normal Attitude: cooperative Thought Process: normal Thought Content: normal Judgment: judgment good Office Procedures Non-stress Test Non-Stress Test Indications for Monitoring: Yes diabetes Heart Rate Baseline: 130 Heart Rate Variability: moderate Movement: Present Heart Rate Accelerations: Present Decelerations: Absent Contractions: Absent Impression: Yes Reactive Non-Stress Test Results POC Urinalysis 2 Dip (Clinic) Office Urine Glucose Negative Last Edit by Shannon Mahmood on 01/20/25 14:15 Office Urine Protein Negative Last Edit by Shannon Mahmood on 01/20/25 14:15 Coding Level of Care Code OB Routine Diagnoses Uterine size date discrepancy O26.849 Gestational diabetes mellitus (GDM) in second trimester controlled on oral hypoglycemic drug O24.415 Gestational diabetes mellitus control: oral hypoglycemic-controlled Trimester: second trimester Insulin resistance complicating O26.899; E88.819 Urinary tract infection in mother during second trimester of O23.42 Trimester: second trimester Multigravida of advanced maternal age in third trimester O09.523 Trimester: third trimester Genital herpes affecting in third trimester O98.313; A60.09 Trimester: third trimester Obesity affecting in second trimester, unspecified obesity type O99.212 Obesity type affecting : unspecified obesity Trimester: second trimester History of gestational diabetes mellitus (GDM) in prior , currently O09.299; Z86.32 Anxiety F41.9 Supervision of high risk in third trimester O09.93 Trimester: third trimester 33 weeks gestation of Z3A.33 Weeks of gestation: 33 weeks CPT Codes Non-Stress Test (74792) Assessment and Plan Assessment and Plan (1) Uterine size date discrepancy : Status: Acute Comment: growth US ordered:32 wk:EFW 68%, AC 98%. 36 w scheduled (2) Gestational diabetes: Status: Acute Qualifiers: Gestational diabetes mellitus control: oral hypoglycemic-controlled Trimester: second trimester Qualified Code(s): O24.415 - Gestational diabetes mellitus in , controlled by oral hypoglycemic drugs (3) Insulin resistance complicating : Status: Acute Comment: on metformin; Dr Hall manages. Growth US 32 and 36 wk. Twice wkly NST at 32 wk. Del at 39 wk (4) UTI (urinary tract infection) during : Status: Acute Qualifiers: Trimester: second trimester Qualified Code(s): O23.42 - Unspecified infection of urinary tract in , second trimester (5) AMA (advanced maternal age) multigravida 35+: Status: Acute Qualifiers: Trimester: third trimester Qualified Code(s): O09.523 - Supervision of elderly multigravida, third trimester Comment: discussed genetic testing. Patient declines. (6) Genital herpes affecting : Status: Acute Qualifiers: Trimester: third trimester Qualified Code(s): O98.313 - Other infections with a predominantly sexual mode of transmission complicating , third trimester; A60.09 - Herpesviral infection of other urogenital tract Comment: valtrex at 34-36 weeks (7) Obesity affecting : Status: Acute Qualifiers: Obesity type affecting : unspecified obesity Trimester: secondtrimester Qualified Code(s):O99.212 - Obesity complicating , second trimester Comment: HGBA1C, BMI 33 (8) History of gestational diabetes mellitus (GDM) in prior , currently: Status: Acute (9) Anxiety: Status: Acute Comment: zoloft stopped. Continue counseling 3 X a week. "feels much better off med" (10) Supervision of high-risk : Status: Acute Qualifiers: Trimester: third trimester Qualified Code(s): O09.93 - Supervision of high risk , unspecified, third trimester Comment: PRR , ISIDRA 03/04/25, PC Aleksander Rodriguez, Farzad (11) : Status: Acute Qualifiers: Weeks of gestation: 33 weeks Qualified Code(s): Z3A.33 - 33 weeks gestation of Comment: declined NIPT & Carrier testing, nl 3 HR GTT, nl anatomy Orders: Orders OB NST Today E88.819 - Insulin resistance, unspecified, O26.899 - Other specified relatedconditions, unspecified trimester POC Urinalysis 2 Dip (Clinic) Today Plan Details Additional Comments: ACOG trimester education reviewed and updated. see problem list details for updated plan management information and see below for orders placed atthis visit. GA appropriate handout given. 01/20/25 1434 s CNM> Date _ Alycia Torres CNM Cosigner Signature: Date (if applicable) CC: ~ [facility]10-09-2025 Progress note Author Alycia Torres [facility] Note Date/Time January 20, 2025 2: 34pm [facility] [address] [place] [address] OFFICE VISIT Date of Service: 01/20/25 MR#: [id number] Acct: [id number] Name: BRITTANY ROCA Rep #: [id number] : 1985 Provider: RALPH Torres Age/Sex: 39/F Location: [facility] Status: Signed Intake Vital Signs 01/06/25 08:44 01/17/25 09:59 01/20/25 14:02 Height 5 ft 10 in 5 ft 10 in 5 ft 10 in Weight: 244 lb 9 oz 247 lb 7 oz BMI 35.1 35.4 BP 106/68 112/70 Intake Visit Reasons: 34wk NST ONLY Drying Oven Tender Required: No Is patient in pain?: No Allergies avocado (avacado) Allergy (Intermediate, Verified 01/20/25 14:06) Swelling of tongue Medications ?Medication ?Instructions ?Recorded ?Confirmed ?Type mv-mn 110-FA 180 mcg-om3 35 mg-dha tab PO DAILY 01/20/25 History 25 mg-epa 5 mg-fish oil chew tablet flash glucose scanning reader #1 ea 08/31/24 01/20/25 Rx (FreeStyle Todd 2 [place]) flash glucose sensor (FreeStyle #1 ea 08/31/24 5 Rx Todd 2 Sensor kit) metformin 500 mg tablet 500 mg PO .COMPLEX #60 tabs 01/03/25 01/20/25 Rx valacyclovir 500 mg tablet 500 mg PO QDAY #30 tabs 11/0501/20/25 Rx Last Menstrual Period: 05/28/24 Zika: Zika virus screening: Negative : No PFSH PFSH Medical History Varicose veins of both lower extremities Seasonal allergies Normal vaginal delivery Superficial varicosities Depression Gestational diabetes PCOS (polycystic ovarian syndrome) Genital herpes affecting Surgical History History of tonsillectomy Family History Aunt Breast cancer, Onset Age: 40 Maternal- unknown if genetic testing was done. 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 occupational exposures/hazards: No pets and animals: Yes pets and animals: dog(s) history of recent travel: Yes (- June) out of state: Yes out of country: No sexually active: Yes Smoking Status: Never smoker second hand exposure: No alcohol intake: current alcohol intake frequency: holidays/special occasions only details: not while substance use type: does not use well-balanced diet: daily or most days caffeine: No eating out: 1-3 times/week during the past year weight has: increased > 10 lbs what type of physical activity do you participate in: other details: crossfit frequency: 1-2 times per week duration: 45-60 minutes/day amanda/latter-day: Scientologist seatbelt use: always do you feel safe at home: Yes additional social history: - Farzad History 3 Elective abortions Hx Para 2 Spontaneous abortions Hx # Term Pregnancies Ectopic pregnancies Hx # Pregnancies Multiple births # of living children 2 Past Pregnancies Del. Date Name GA/Weeks Outcome Route Bth Weight Infant Gen Labor Lgth Anesthesia Del Locatn Provider FOB 08/26/18 Jennifer 40 live - full term 9lbs Female 16 hours none [facility] ZACH Panda 10/24/20 Aleksander 39 live - full term 8#10oz Male epi dural [facility] Dr. Rainer Panda Delivery Date: 08/26/18 Last Updated by: Pauline Tay 3rd degree laceration; NICU for possible NEC- she did not have HPI 34wk NST ONLY Details: BRITTANY ROCA is a 39 year old who presents for routine OB visit. OB Visit ISIDRA Calculator Estimated Delivery Date Method Current WG Current Estimate 03/04/25 LMP (Certain) 33w 6d Other Estimates 03/10/25 Ultrasound #1 33w 0d 03/04/25 Ultrasound #2 33w 6d Initial Weight: Not Recorded Date -?-?-?-?-?-?-?-?-?-?--?-?- EGA Weight BP Urine Prot -?-?-?-?-?-?-?-?-?-?-?-?- Glucose FHR FuHt Pres Dilation -?-?-?-?-?-?-?-?-?-?-?-?- Effaced St Visit Note 07/28/24 -?-?-?-?-?-?-?-?-?-?-?-?- 8w 5d 233 lb 2 oz 129/79 -?-?-?-?-?-?-?-?-?-?-?-?- 170 -?-?-?-?-?-?-?-?-?-?-?-?- SM- CRL 1.4 not cons with LMP 08/13/24 -?-?-?-?-?-?-?-?-?-?-?-?- 11w 0d Negative -?-?-?-?-?-?-?-?-?-?-?-?- Negative -?-?-?-?-?-?-?-?-?-?-?-?- nurse visit for UTI sx. culture sent and rx for atb sent due to sx. 08/30/24 -?-?-?-?-?-?-?-?-?-?-?-?- 13w 3d 234 lb 6 oz 115/73 Nega tive -?-?-?-?-?-?-?-?-?-?-?-?- Negative 155 -?-?-?-?-?-?-?-?-?-?-?-?- JV- no lof, vagi nal bleeding, or cramping. due date cleared up. Needs clean catch test of cure and new ob labs 09/27/24 -?-?-?-?-?-?-?-?-?-?-?-?- 17w 3d 236 lb 6 oz 116/75 -?-?-?-?-?-?-?-?-?-?-?-?- 155 -?-?-?-?-?-?-?-?-?-?-?-?- KW- US scheduled with M. no vb/cramping. +flutters. On metformin 500mg for Blood sugars. Reports fasting BS under 95. Encouraged to continue checking BS and follow up with DR Kim. doing well on ZOloft. KW- US scheduled with [facility]. n o vb/cramping. +flutters. On metformin 500mg for Blood sugars. Reports fasting BS under 95. Encouraged to continue checking BS- has not been consistent- and follow up with DR Kim. doing well on ZOloft. 10/25/24 -?-?-?-?-?-?-?-?-?-?-?-?- 21w 3d 236 lb 2 oz 122/70 Nega tive -?-?-?-?-?-?-?-?-?-?-?-?- Negative 142 -?-?-?-?-?-?-?-?-?-?-?-?- -No VB. Jaziel F M. Insulin resistant/on metformin and seeing Dr Hall -No VB. Jaziel MISHRA. Insulin r esistant/on metformin and seeing Dr Hall. 11/25/24 -?-?-?-?-?-?-?-?-?-?-?-?- 25w 6d 236 lb 9 oz 97/64 Nega tive -?-?-?-?-?-?-?-?-?-?-?-?- Negative 140 26 -?-?-?-?-?-?-?-?-?-?-?-?- SM- no vb lof go od fm n oregular ctx 12/22/24 -?-?-?-?-?-?-?-?-?-?-?-?- 29w 5d 241 lb 8 oz 113/79 Nega tive -?-?-?-?-?-?-?-?-?-?-?-?- Negative 150 32 -?-?-?-?-?-?-?-?-?-?-?-?- KW- no vb/lof/ct tahmina. jaziel mishra. following blood sugars. 1000mg of metformin nightly. growth US ordered for S>D 12/28/24 -?-?-?-?-?-?-?-?-?-?-?-?- 30w 4d 241 lb 6 oz 102/66 Nega tive -?-?-?-?-?-?-?-?-?-?-?-?- Negative 153 33 -?-?-?-?-?-?-?-?-?-?-?-?- MH-No VB,LOF, CT X. Good FM. Feeling more anxious, not sure zoloft working. Reassured concerning risks to . Discussed changing to buspar or increasing dosage. She prefers to increase dosage. Is seeing counselor 3 X month 01/06/25 -?-?-?-?-?-?-?-?-?-?-?-?- 31w 6d 243 lb 5 oz 105/65 Nega tive -?-?-?-?-?-?-?-?-?-?-?-?- Negative 157 34 -?-?-?-?-?-?-?-?-?-?-?-?- MH-No VB, LOF. G ood FM. Stopped zoloft completely and feels much better. Glucose levels followed per endo and at nl ranges. NSTs2 X wk start next week and has growth US next week 01/11/25 -?-?-?-?-?-?-?-?-?-?-?-?- 32w 4d 247 lb 2 oz 108/67 Nega tive -?-?-?-?-?-?-?-?-?-?-?-?- Negative 150 -?-?-?-?-?-?-?-?-?-?-?-?- JV- nst only tod ay. reactive. states metfomin is helping with fasting levels. followed by Dr. Hall. She has a growth scan now. 01/14/25 -?-?-?-?-?-?-?-?-?-?-?-?- 33w 0d 247 lb 3 oz 116/71 Nega tive -?-?-?-?-?-?-?-?-?-?-?-?- Negative 135 -?-?-?-?-?-?-?-?-?-?-?-?- KW- no vb/lof/ct x good fm. reactive NST. MIL in longterm-noticing some spikes in blood sugars with stress. still following with Rafael. 01/17/25 -?-?-?-?-?-?-?-?-?-?-?-?- 33w 3d 244 lb 9 oz 106/68 Nega tive -?-?-?-?-?-?-?-?-?-?-?-?- Negative 140 34 -?-?-?-?-?-?-?-?-?-?-?-?- MH-No VB, LOF. G ood FM. Reactive NST. FLu vaccine given 01/20/25 -?-?-?-?-?-?-?-?-?-?-?-?- 33w 6d 247 lb 7 oz 112/70 Nega tive -?-?-?-?-?-?-?-?-?-?-?-?- Negative 130 -?-?-?-?-?-?-?-?-?-?-?-?- KW- No vb/lof/ct x. good fm. reactive NST ACOG First Trimester First Trimester: Desire for , Alcohol, Tobacco Cessation, Illicit/Recreational Drug/Substance Use, Intimate Partner Violence, Barriers to care, Unstable Housing, Communication Barriers, Environmental/Work Hazards, Anticipated Course of Care, Toxoplasmosis Precations, Use of Any medications, Sexual activity, Dental Care, Sauna/Hot tub use, Seat Belt use, Childbirth classes/Hospital facilities, Travel, Indications for Ultrasound and Screening for Aneuploidy; Discussed Exercise and Discussed Second Trimester Second Trimester: Signs and Symptoms of Labor, Selecting a care provider, Reproductive Life Planning & Contreception, Care Planning, Tobacco Cessation, Depression/Anxiety and Intimate Partner Violence Third Trimester Third Trimester: Pain Management Plans, Labor support person(s), Immediate Larc, Movement Monitoring and Infant Feeding No ; Discussed Trial of Labor after Counseling and Discussed Circumcision preference ROS Const Reports system reviewed and no additional complaints, except as documented Eyes Reports system reviewed and no additional complaints, except as documented ENT Reports system reviewed and no additional complaints, except as documented Card Reports system reviewed and no additional complaints, except as documented Resp Reports system reviewed and no additional complaints, except as documented GI Reports system reviewed and no additional complaints, except as documented, Denies nausea and Denies vomiting Reports system reviewed and no additional complaints, except as documented Musc Reports system reviewed and no additional complaints, except as documented Skin/Breast Reports system reviewed and no additional complaints, except as documented Neuro Yes system reviewed and no additional complaints, except as documented Psych Reports system reviewed and no additional complaints, except as documented Endo Reports system reviewed and no additional complaints, except as documented Amol/Lymph Reports system reviewed and no additional complaints, except as documented Aller/Immun Reports system reviewed and no additional complaints, except as documented Exam Const General: cooperative, healthy appearing and no acute distress Orientation: alert, awake and oriented x3 Neck Neck: normal visual inspection and full ROM Resp Effort & Inspection: normal respiratory effort, able to speak in complete sentences and symmetric chest movement GI Inspection: normal to inspection Palpation: soft and other Other: gravid Skin General: no rashes or lesions noted Neuro General: patient alert, patient awake and patient oriented x3 Cognition: normal cognition Speech: speech normal Gait: normal gait Motor: muscle tone normal throughout Extrem General: normal to inspection and full ROM Psych Appearance: grossly normal Mental Status: mental status grossly normal Mood: congruent mood Affect: normal affect Speech and Movement: speech and movement normal Attitude: cooperative Thought Process: normal Thought Content: normal Judgment: judgment good Office Procedures Non-stress Test Non-Stress Test Indications for Monitoring: Yes diabetes Heart Rate Baseline: 130 Heart Rate Variability: moderate Movement: Present Heart Rate Accelerations: Present Decelerations: Absent Contractions: Absent Impression: Yes Reactive Non-Stress Test Results POC Urinalysis 2 Dip (Clinic) Office Urine Glucose Negative Last Edit by Shannon Mahmood on 01/20/25 14:15 Office Urine Protein Negative Last Edit by Shannon Mahmood on 01/20/25 14:15 Coding Level of Care Code OB Routine Diagnoses Uterine size date discrepancy O26.849 Gestational diabetes mellitus (GDM) in second trimester controlled on oral hypoglycemic drug O24.415 Gestational diabetes mellitus control: oral hypoglycemic-controlled Trimester: second trimester Insulin resistance complicating O26.899; E88.819 Urinary tract infection in mother during second trimester of O23.42 Trimester: second trimester Multigravida of advanced maternal age in third trimester O09.523 Trimester: third trimester Genital herpes affecting in third trimester O98.313; A60.09 Trimester: third trimester Obesity affecting in second trimester, unspecified obesity type O99.212 Obesity type affecting : unspecified obesity Trimester: second trimester History of gestational diabetes mellitus (GDM) in prior , currently O09.299; Z86.32 Anxiety F41.9 Supervision of high risk in third trimester O09.93 Trimester: third trimester 33 weeks gestation of Z3A.33 Weeks of gestation: 33 weeks CPT Codes Non-Stress Test (12600) Assessment and Plan Assessment and Plan (1) Uterine size date discrepancy : Status: Acute Comment: growth US ordered:32 wk:EFW 68%, AC 98%. 36 w scheduled (2) Gestational diabetes: Status: Acute Qualifiers: Gestational diabetes mellitus control: oral hypoglycemic-controlled Trimester: second trimester Qualified Code(s): O24.415 - Gestational diabetes mellitus in , controlled by oral hypoglycemic drugs (3) Insulin resistance complicating : Status: Acute Comment: on metformin; Dr Hall manages. Growth US 32 and 36 wk. Twice wkly NST at 32 wk. Del at 39 wk (4) UTI (urinary tract infection) during : Status: Acute Qualifiers: Trimester: second trimester Qualified Code(s): O23.42 - Unspecified infection of urinary tract in , second trimester (5) AMA (advanced maternal age) multigravida 35+: Status: Acute Qualifiers: Trimester: third trimester Qualified Code(s): O09.523 - Supervision of elderly multigravida, third trimester Comment: discussed genetic testing. Patient declines. (6) Genital herpes affecting : Status: Acute Qualifiers: Trimester: third trimester Qualified Code(s): O98.313 - Other infections with a predominantly sexual mode of transmission complicating , third trimester; A60.09 - Herpesviral infection of other urogenital tract Comment: valtrex at 34-36 weeks (7) Obesity affecting : Status: Acute Qualifiers: Obesity type affecting : unspecified obesity Trimester: secondtrimester Qualified Code(s): O99.212 - Obesity complicating , second trimester Comment: HGBA1C, BMI 33 (8) History of gestational diabetes mellitus (GDM) in prior , currently: Status: Acute (9) Anxiety: Status: Acute Comment: zoloft stopped. Continue counseling 3 X a week. "feels much better off med" (10) Supervision of high-risk : Status: Acute Qualifiers: Trimester: third trimester Qualified Code(s): O09.93 - Supervision of high risk , unspecified, third trimester Comment: PRR , ISIDRA 03/04/25, PC Aleksander Rodriguez, Farzad (11) : Status: Acute Qualifiers: Weeks of gestation: 33 weeks Qualified Code(s): Z3A.33 - 33 weeks gestation of Comment: declined NIPT & Carrier testing, nl 3 HR GTT, nl anatomy Orders: Orders OB NST Today E88.819 - Insulin resistance, unspecified, O26.899 - Other specified related conditions, unspecified trimester POC Urinalysis 2 Dip (Clinic) Today Plan Details Additional Comments: ACOG trimester education reviewed and updated. see problem list details for updated plan management information and see below for orders placed at this visit. GA appropriate handout given. 01/20/25 9498 <Electronically signed by Alycia godinez CNM> Date _ Alycia Ramires Signature: Date (if applicable) CC: ~ [facility] Work Phone: [phone] [facility] [address] [place] [address], [address] [place] [address] OFFICE VISIT Date of Service: 01/17/25 MR#: [id number] Acct: [id number] Name: BRITTANY ROCA Rep #: [id number] : 1985 Provider: CARROLL Osuna Age/Sex: 39/F [place] [facility] [place] Status: Signed with Addenda ADDENDUM by Ro Zuniga on 01/17/25 at 1055 Office Procedure Documentation entered by oR Zuniga 01/17/25 10:55: Immunizations Flucelvax 5615-8636 (PF) 45 mcg (15 mcg x 3)/0.5 mL IM syringe Performing Provider: Shannon Osuna HEEL SEAT FILLER, HEEL SEAT FILLER-C Performing Location: [facility] Administered by: Ro Zuniga on 01/17/25 10:54 Dose Route Admin Location Dispensed Lot Number Expiration Date Pack age NDC NDC Audiologist 0.5 mL IM Left Deltoid 0.5 mL [id number] 08/21/25 48559-860-63 [id number] [employer] VIS Given Date VIS Provided VIS Publication Date 11/17/20 Single Vaccine 24 Eligibility Eligibility Date Funding Source Not Applicable Date _ cc: ~* Signed Intake Vital Signs 11/25/24 09:54 01/06/25 08:44 01/14/25 08:08 01/17/25 09:59 Height 5 ft 10 in 5 ft 10 in 5 ft 10 in 5 ft 10 in Weight: 244 lb 9 oz BMI 35.1 BP 106/68 Intake Visit Reasons: 34wk ob/nst Chief Complaint: 34 Week OB/NST Drying Oven Tender Required: No Is patient in pain?: No Allergies avocado (avacado) Allergy (Intermediate, Verified 01/17/25 09:59) Swelling of tongue Medications ?Medication ?Instructions ?Recorded ?Confirmed ?Type mv-mn 110-FA 180 mcg-om3 35 mg-dha tab PO DAILY 01/17/25 History 25 mg-epa 5 mg-fish oil chew tablet flash glucose scanning reader #1 ea 08/31/24 01/17/25 Rx (FreeStyle Todd 2 [place]) flash glucose sensor (FreeStyle #1 ea 08/31/24 5 Rx Todd 2 Sensor kit) metformin 500 mg tablet 500 mg PO .COMPLEX #60 tabs 01/03/25 01/17/25 Rx Last Menstrual Period: 05/28/24 Zika: Zika virus screening: Negative : No PFSH PFSH Medical History Varicose veins of both lower extremities Seasonal allergies Normal vaginal delivery Superficial varicosities Depression Gestational diabetes PCOS (polycystic ovarian syndrome) Genital herpes affecting Surgical History History of tonsillectomy Family History Aunt Breast cancer, Onset Age: 40 Maternal- unknown if genetic testing was done. 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 occupational exposures/hazards: No pets and animals: Yes pets and animals: dog(s) history of recent travel: Yes (- June) out of state: Yes out of country: No sexually active: Yes Smoking Status: Never smoker second hand exposure: No alcohol intake: current alcohol intake frequency: holidays/special occasions only details: not while substance use type: does not use well-balanced diet: daily or most days caffeine: No eating out: 1-3 times/week during the past year weight has: increased > 10 lbs what type of physical activity do you participate in: other details: crossfit frequency: 1-2 times per week duration: 45-60 minutes/day amanda/latter-day: Scientologist seatbelt use: always do you feel safe at home: Yes additional social history: - Farzad History 3 Elective abortions Hx Para 2 Spontaneous abortions Hx # Term Pregnancies Ectopic pregnancies Hx # Pregnancies Multiple births # of living children 2 Past Pregnancies Del. Date Name GA/Weeks Outcome Route Bth Weight Gen Labor Lgth Anesthesia Del Locatn Provider FONieves 08/26/18 Jennifer 40 live - full term 9lbs Female 16 hours none [facility] ZACH Panda 10/24/20 Aleksander 39 live - full term 8#10oz Male epi dural [facility] Dr. Rainer Panda Delivery Date: 08/26/18 Last Updated by: Pauline Tay 3rd degree laceration; NICU for possible NEC- she did not have HPI 34wk ob/nst Details: BRITTANY ROCA is a 39 year old who presents for routine OB visit. OB Visit ISIDRA Calculator Estimated Delivery Date Method Current WG Current Estimate 03/04/25 LMP (Certain) 33w 3d Other Estimates 03/10/25 Ultrasound #1 32w 4d 03/04/25 Ultrasound #2 33w 3d Initial Weight: Not Recorded Date -?-?-?-?-?-?-?-?-?-?-?-?- EGA Weight BP Urine Prot -?-?-?-?-?-?-?-?-?-?-?-?- Glucose FHR FuHt Pres Dilation -?-?-?-?-?-?-?-?-?-?-?-?- Effaced St Visit Note 07/28/24 -?-?-?-?-?-?-?-?-?-?-?-?- 8w 5d 233 lb 2 oz 129/79 -?-?-?-?-?-?-?-?-?-?-?-?- 170 -?-?-?-?-?-?-?-?-?-?-?-?- SM- CRL 1.4 not cons with LMP 08/13/24 -?-?-?-?-?-?-?-?-?-?-?-?- 11w 0d Negative -?-?-?-?-?-?-?-?-?-?-?-?- Negative -?--?-?-?-?-?-?-?-?-?-?-?- nurse visit for UTI sx. culture sent and rx for atb sent due to sx. 08/30/24 -?-?-?-?-?-?-?-?-?-?-?-?- 13w 3d 234 lb 6 oz 115/73 Nega tive -?-?-?-?-?-?-?-?-?-?-?-?- Negative 155 -?-?-?-?-?-?-?-?-?-?-?-?- JV- no lof, vagi nal bleeding, or cramping. due date cleared up. Needs clean catch test of cure and new ob labs 09/27/24 -?-?-?-?-?-?-?-?-?-?-?-?- 17w 3d 236 lb 6 oz 116/75 -?-?-?-?-?-?-?-?-?-?-?-?- 155 -?-?-?-?-?-?-?-?-?-?-?-?- KW- US scheduled with [facility]. no vb/cramping. +flutters. On metformin 500mg for Blood sugars. Reports fasting BS under 95. Encouraged to continue checking BS and follow up with Renny. doing well on ZOloft. KW- US scheduled with [facility]. n o vb/cramping. +flutters. On metformin 500mg for Blood sugars. Reports fasting BS under 95. Encouraged to continue checking BS- has not been consistent- and follow up with DR Kim. doing well on ZOloft. 10/25/24 -?-?-?-?-?-?-?-?-?-?-?-?- 21w 3d 236 lb 2 oz 122/70 Nega tive -?-?-?-?-?-?-?-?-?-?-?-?- Negative 142 -?-?-?-?-?-?-?-?-?-?-?-?- -No VB. Jaziel F M. Insulin resistant/on metformin and seeing Dr Hall -No VB. Jaziel FM. Insulin r esistant/on metformin and seeing Dr Hall. 11/25/24 -?-?-?-?-?-?-?-?-?-?-?-?- 25w 6d 236 lb 9 oz 97/64 Nega tive -?-?-?-?-?-?-?-?-?-?-?-?- Negative 140 26 -?-?-?-?-?-?-?-?-?-?-?--?- SM- no vb lof go od fm n oregular ctx 12/22/24 -?-?-?-?-?-?-?-?-?-?-?-?- 29w 5d 241 lb 8 oz 113/79 Nega tive -?-?-?-?-?-?-?-?-?-?-?-?- Negative 150 32 -?-?-?-?-?-?-?-?-?-?-?-?- KW- no vb/lof/ct x. good fm. Rafael following blood sugars. 1000mg of metformin nightly. growth US ordered for S>D 12/28/24 -?-?-?-?-?-?-?-?-?-?-?-?- 30w 4d 241 lb 6 oz 102/66 Nega tive -?-?-?-?-?-?-?-?-?-?-?-?- Negative 153 33 -?-?-?-?-?-?-?-?-?-?-?-?- MH-No VB,LOF, CT X. Good FM. Feeling more anxious, not sure zoloft working. Reassured concerning risks to . Discussed changing to buspar or increasing dosage. She prefers to increase dosage. Is seeing counselor 3 X month 01/06/25 -?-?-?-?-?-?-?-?-?-?-?-?- 31w 6d 243 lb 5 oz 105/65 Nega tive -?-?-?-?-?-?-?-?-?-?-?-?- Negative 157 34 -?-?-?-?-?-?-?-?-?-?-?-?- MH-No VB, LOF. G ood FM. Stopped zoloft completely and feels much better. Glucose levels followed per endo and at nl ranges. NSTs2 X wk start next week and has growth US next week 01/11/25 -?-?-?-?-?-?-?-?-?-?-?-?- 32w 4d 247 lb 2 oz 108/67 Nega tive -?-?-?-?-?-?-?-?-?-?-?-?- Negative 150 -?-?-?-?--?-?-?-?-?-?-?-?- JV- nst only tod ay. reactive. states metfomin is helping with fasting levels. followed by Dr. Hall. She has a growth scan now. 01/14/25 -?-?-?-?-?-?-?-?-?-?-?-?- 33w 0d 247 lb 3 oz 116/71 Nega tive -?-?-?-?-?-?-?-?-?-?-?-?- Negative 135 -?-?-?-?-?-?-?-?-?-?-?-?- KW- no vb/lof/ct x good fm. reactive NST. MIL in longterm-noticing some spikes in blood sugars with stress. still following with . 01/17/25 -?-?-?-?-?-?-?-?-?-?-?-?- 33w 3d 244 lb 9 oz 106/68 Nega tive -?-?-?-?-?-?-?-?-?-?-?-?- Negative 140 34 -?-?-?-?-?-?-?-?-?-?-?-?- MH-No VB, LOF. G ood FM. Reactive NST. FLu vaccine given ACOG First Trimester First Trimester: Desire for , Alcohol, Tobacco Cessation, Illicit/Recreational Drug/Substance Use, Intimate Partner Violence, Barriers to care, Unstable Housing, Communication Barriers, Environmental/Work Hazards, Anticipated Course of Care, Toxoplasmosis Precations, Use of Any med ications, Sexual activity, Dental Care, Sauna/Hot tub use, Seat Belt use, Childbirth classes/Hospital facilities, Travel, Indications for Ultrasound and Screening for Aneuploidy; Discussed Exercise and Discussed Second Trimester Second Trimester: Signs and Symptoms of Labor, Selecting a care provider, Reproductive Life Planning & Contreception, Care Planning, Tobacco Cessation, Depression/Anxiety and Intimate Partner Violence Third Trimester Third Trimester: Pain Management Plans, Labor support person(s), Immediate Larc, Movement Monitoring and Feeding No ; Discussed Trial of Labor after Counseling and Discussed Circumcision preference ROS Const Reports system reviewed and no additional complaints, except as documented GI Denies abdominal pain, Denies nausea and Denies vomiting Exam Const General: cooperative Nutritional Appearance: well nourished GI Palpation: soft, nontender and other (gravid) Office Procedures Non-stress Test Non-Stress Test Indications for Monitoring: Yes diabetes and Yes Advanced maternal age Heart Rate Baseline: 140 Heart Rate Variability: moderate Movement: Present Heart Rate Accelerations: Present Decelerations: Absent Contractions: Absent Impression: Yes Reactive Non-Stress Test Results POC Urinalysis 2 Dip (Clinic) Office Urine Glucose Negative Last Edit by Ro Zuniga on 01/17/25 10 :08 Office Urine Protein Negative Last Edit by Ro Zuniga on 01/17/25 10 :08 Coding Level of Care Code Off vis,est,level 3 Diagnoses Supervision of high risk in third trimester O09.93 Trimester: third trimester Insulin resistance complicating O26.899; E88.819 33 weeks gestation of Z3A.33 Weeks of gestation: 33 weeks Anxiety F41.9 History of gestational diabetes mellitus (GDM) in prior , currently O09.299; Z86.32 Obesity affecting in second trimester, unspecified obesity type O99.212 Obesity type affecting : unspecified obesity Trimester: second trimester Genital herpes affecting in third trimester O98.313; A60.09 Trimester: third trimester Multigravida of advanced maternal age in third trimester O09.523 Trimester: third trimester Urinary tract infection in mother during second trimester of O23.42 Trimester: second trimester Gestational diabetes mellitus (GDM) in second trimester controlled on oral hypoglycemic drug O24.415 Gestational diabetes mellitus control: oral hypoglycemic-controlled Trimester: second trimester Uterine size date discrepancy O26.849 CPT Codes Non-Stress Test (10209) Assessment and Plan Assessment and Plan (1) Supervision of high-risk : Status: Acute Qualifiers: Trimester: third trimester Qualified Code(s): O09.93 - Supervision of high risk , unspecified, third trimester Comment: PRR , ISIDRA 03/04/25, PC Aleksander Rodriguez, Farzad (2) Insulin resistance complicating : Status: Acute Comment: on metformin; Dr Hall manages. Growth US 32 and 36 wk. Twice wkly NST at 32 wk. Del at 39 wk (3) : Status: Acute Qualifiers: Weeks of gestation: 33 weeks Qualified Code(s): Z3A.33 - 33 weeks gestation of Comment: declined NIPT & Carrier testing, nl 3 HR GTT, nl anatomy (4) Anxiety: Status: Acute Comment: zoloft stopped. Continue counseling 3 X a week. "feels much better off med" (5) History of gestational diabetes mellitus (GDM) in prior , currently: Status: Acute (6) Obesity affecting : Status: Acute Qualifiers: Obesity type affecting : unspecified obesity Trimester: secondtrimester Qualified Code(s):O99.212 - Obesity complicating , second trimester Comment: HGBA1C, BMI 33 (7) Genital herpes affecting : Status: Acute Qualifiers: Trimester: third trimester Qualified Code(s): O98.313 - Other infections with a predominantly sexual mode of transmission complicating , third trimester; A60.09 - Herpesviral infection of other urogenital tract Comment: valtrex at 34-36 weeks (8) AMA (advanced maternal age) multigravida 35+: Status: Acute Qualifiers: Trimester: third trimester Qualified Code(s): O09.523 - Supervision of elderly multigravida, third trimester Comment: discussed genetic testing. Patient declines. (9) UTI (urinary tract infection) during : Status: Acute Qualifiers: Trimester: second trimester Qualified Code(s): O23.42 - Unspecified infection of urinary tract in , second trimester (10) Gestational diabetes: Status: Acute Qualifiers: Gestational diabetes mellitus control: oral hypoglycemic-controlled Trimester: second trimester Qualified Code(s): O24.415 - Gestational diabetes mellitus in , controlled by oral hypoglycemic drugs (11) Uterine size date discrepancy : Status: Acute Comment: growth US ordered:32 wk:EFW 68%, AC 98%. 36 w scheduled Orders: Orders OB NST Today E88.819 - Insulin resistance, unspecified, O26.899 - Other specified relatedconditions, unspecified trimester POC Urinalysis 2 Dip (Clinic) Today Influenza Immunization Today Z23 - Encounter for immunization Medications: New Flucelvax [id number] (PF) (flu vac ts 2024(6 mo up)CD(PF)) 0.5 mL IM ONCE 0.5 mL 0RF NS Z23 - Encounter for immunization Plan problem list reviewed and updated for most current plan of care and appropriate orders placed. Relevant counseling for the gestational age appropriate providedand ACOG education checklist updated. Continue routine care and followup. 01/17/25 1047 s HEEL SEAT FILLER HEEL SEAT FILLER-C> Date _ Shannon Thao HEEL SEAT FILLER HEEL SEAT FILLER-C Cosigner Signature: Date (if applicable) CC: ~ [facility]10-03-2025 [facility] [address] [place] [address], [address] [place] [address] OFFICE VISIT Date of Service: 01/14/25 MR#: [id number] Acct: [id number] Name: BRITTANY ROCA Rep #: [id number] : 1985 Provider: RALPH Torres Age/Sex: 39/F [place] [facility] [place] Status: Signed Intake Vital Signs 01/06/25 08:44 01/11/25 09:01 01/14/25 08:08 Height 5 ft 10 in 5 ft 10 in 5 ft 10 in Weight: 247 lb 3 oz BMI 35.4 BP 116/71 Intake Visit Reasons: 33wk ob/nst Drying Oven Tender Required: No Is patient in pain?: No Allergies avocado (avacado) Allergy (Intermediate, Verified 01/14/25 08:13) Swelling of tongue Medications ?Medication ?Instructions ?Recorded ?Confirmed ?Type mv-mn 110-FA 180 mcg-om3 35 mg-dha tab PO DAILY 01/14/25 History 25 mg-epa 5 mg-fish oil chew tablet flash glucose scanning reader #1 ea 08/31/24 01/14/25 Rx (FreeStyle Todd 2 [place]) flash glucose sensor (FreeStyle #1 ea 08/31/24 5 Rx Todd 2 Sensor kit) metformin 500 mg tablet 500 mg PO .COMPLEX #60 tabs 01/03/25 01/14/25 Rx Last Menstrual Period: 05/28/24 Zika: Zika virus screening: Negative : No Have you fallen in the past year?: No PFSH PFSH Medical History Varicose veins of both lower extremities Seasonal allergies Normal vaginal delivery Superficial varicosities Depression Gestational diabetes PCOS (polycystic ovarian syndrome) Genital herpes affecting Surgical History History of tonsillectomy Family History Aunt Breast cancer, Onset Age: 40 Maternal- unknown if genetic testing was done. 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 occupational exposures/hazards: No pets and animals: Yes pets and animals: dog(s) history of recent travel: Yes (- June) out of state: Yes out of country: No sexually active: Yes Smoking Status: Never smoker second hand exposure: No alcohol intake: current alcohol intake frequency: holidays/special occasions only details: not while substance use type: does not use well-balanced diet: daily or most days caffeine: No eating out: 1-3 times/week during the past year weight has: increased > 10 lbs what type of physical activity do you participate in: other details: crossfit frequency: 1-2 times per week duration: 45-60 minutes/day amanda/latter-day: Scientologist seatbelt use: always do you feel safe at home: Yes additional social history: - Farzad History 3 Elective abortions Hx Para 2 Spontaneous abortions Hx # Term Pregnancies Ectopic pregnancies Hx # Pregnancies Multiple births # of living children 2 Past Pregnancies Del. Date Name GA/Weeks Outcome Route Bth Weight Gen Labor Lgth Anesthesia Del Locatn Provider KARAN 08/26/18 Jennifer 40 live - full term 9lbs Female 16 hours none [facility] ZACH Panda 10/24/20 Aleksander 39 live - full term 8#10oz Male epi dural [facility] Dr. Rainer Panda Delivery Date: 08/26/18 Last Updated by: Pauline Tay 3rd degree laceration; NICU for possible NEC- she did not have HPI 33wk ob/nst Details: BRITTANY ROCA is a 39 year old who presents for routine OB visit. OB Visit ISIDRA Calculator Estimated Delivery Date Method Current WG Current Estimate 03/04/25 LMP (Certain) 33w 0d Other Estimates 03/10/25 Ultrasound #1 32w 1d 03/04/25 Ultrasound #2 33w 0d Initial Weight: Not Recorded Date -?-?-?-?-?-?-?-?-?-?-?-?- EGA Weight BP Urine Prot -?-?-?-?-?-?-?-?-?-?-?-?- Glucose FHR FuHt Pres Dilation -?-?-?-?-?-?-?-?-?-?-?-?- Effaced St Visit Note 07/28/24 -?-?-?-?-?-?-?-?-?-?-?-?- 8w 5d 233 lb 2 oz 129/79 -?-?-?-?-?-?-?-?-?-?-?-?- 170 -?-?-?-?-?-?-?-?-?-?-?-?- SM- CRL 1.4 not cons with LMP 08/13/24 -?-?-?-?-?-?-?-?-?-?-?-?- 11w 0d Negative -?-?-?-?-?-?-?-?-?-?-?-?- Negative -?-?--?-?-?-?-?-?-?-?-?-?- nurse visit for UTI sx. culture sent and rx for atb sent due to sx. 08/30/24 -?-?-?-?-?-?-?-?-?-?-?-?- 13w 3d 234 lb 6 oz 115/73 Nega tive -?-?-?-?-?-?-?-?-?-?-?-?- Negative 155 -?-?-?-?-?-?-?-?-?-?-?-?- JV- no lof, vagi nal bleeding, or cramping. due date cleared up. Needs clean catch test of cure and new ob labs 09/27/24 -?-?-?-?-?-?-?-?-?-?-?-?- 17w 3d 236 lb 6 oz 116/75 -?-?-?-?-?-?-?-?-?-?-?-?- 155 -?-?-?-?-?-?-?-?-?-?-?-?- KW- US scheduled with [facility]. no vb/cramping. +flutters. On metformin 500mg for Blood sugars. Reports fasting BS under 95. Encouraged to continue checking BS and follow up with Renny. doing well on ZOloft. KW- US scheduled with [facility]. n o vb/cramping. +flutters. On metformin 500mg for Blood sugars. Reports fasting BS under 95. Encouraged to continue checking BS- has not been consistent- and follow up with DR Kim. doing well on ZOloft. 10/25/24 -?-?-?-?-?-?-?-?-?-?-?-?- 21w 3d 236 lb 2 oz 122/70 Nega tive -?-?-?-?-?-?-?-?-?-?-?-?- Negative 142 -?-?-?-?-?-?-?-?-?-?-?-?- -No VB. Jaziel F M. Insulin resistant/on metformin and seeing Dr Hall -No VB. Jaziel FM. Insulin r esistant/on metformin and seeing Dr Hall. 11/25/24 -?-?-?-?-?-?-?-?-?-?-?-?- 25w 6d 236 lb 9 oz 97/64 Nega tive -?-?-?-?-?-?-?-?-?-?-?-?- Negative 140 26 -?-?-?-?-?-?-?-?-?-?-?-?- SM- no vb lof go od fm n oregular ctx 12/22/24 -?-?-?-?-?-?-?-?-?-?-?-?- 29w 5d 241 lb 8 oz 113/79 Nega tive -?-?-?-?-?-?-?-?-?-?-?-?- Negative 150 32 -?-?-?-?-?-?-?-?-?-?-?-?- KW- no vb/lof/ct x. good fm. Rafael following blood sugars. 1000mg of metformin nightly. growth US ordered for S>D 12/28/24 -?-?-?-?-?-?-?-?-?-?-?-?- 30w 4d 241 lb 6 oz 102/66 Nega tive -?-?-?-?-?-?-?-?-?-?-?-?- Negative 153 33 -?-?-?-?-?-?-?-?-?-?-?-?- MH-No VB,LOF, CT X. Good FM. Feeling more anxious, not sure zoloft working. Reassured concerning risks to . Discussed changing to buspar or increasing dosage. She prefers to increase dosage. Is seeing counselor 3 X month 01/06/25 -?-?-?-?-?-?-?-?-?-?-?-?- 31w 6d 243 lb 5 oz 105/65 Nega tive -?-?-?-?-?-?-?-?-?-?-?-?- Negative 157 34 -?-?-?-?-?-?-?-?-?-?-?-?- MH-No VB, LOF. G ood FM. Stopped zoloft completely and feels much better. Glucose levels followed per endo and at nl ranges. NSTs2 X wk start next week and has growth US next week 01/11/25 -?-?-?-?-?-?-?-?-?-?-?-?- 32w 4d 247 lb 2 oz 108/67 Nega tive -?-?-?-?-?-?-?-?-?-?-?-?- Negative 150 -?-?-?-?-?--?-?-?-?-?-?-?- JV- nst only tod ay. reactive. states metfomin is helping with fasting levels. followed by Dr. Hall. She has a growth scan now. 01/14/25 -?-?-?-?-?-?-?-?-?-?-?-?- 33w 0d 247 lb 3 oz 116/71 Nega tive -?-?-?-?-?-?-?-?-?-?-?-?- Negative 135 -?-?-?-?-?-?-?-?-?-?-?-?- KW- no vb/lof/ct x good fm. reactive NST. MIL in longterm-noticing some spikes in blood sugars with stress. still following with . ACOG First Trimester First Trimester: Desire for , Alcohol, Tobacco Cessation, Illicit/Recreational Drug/Substance Use, Intimate Partner Violence, Barriers to care, Unstable Housing, Communication Barriers, Environmental/Work Hazards, Anticipated Course of Care, Toxoplasmosis Precations, Use of Any med ications, Sexual activity, Dental Care, Sauna/Hot tub use, Seat Belt use, Childbirth classes/Hospital facilities, Travel, Indications for Ultrasound and Screening for Aneuploidy; Discussed Exercise and Discussed Second Trimester Second Trimester: Signs and Symptoms of Labor, Selecting a care provider, Reproductive Life Planning & Contreception, Care Planning, Tobacco Cessation, Depression/Anxiety and Intimate Partner Violence Third Trimester Third Trimester: Pain Management Plans, Labor support person(s), Immediate Larc, Movement Monitoring and Feeding No ; Discussed Trial of Labor after Counseling and Discussed Circumcision preference ROS Const Reports system reviewed and no additional complaints, except as documented Eyes Reports system reviewed and no additional complaints, except as documented ENT Reports system reviewed and no additional complaints, except as documented Card Reports system reviewed and no additional complaints, except as documented Resp Reports system reviewed and no additional complaints, except as documented GI Reports system reviewed and no additional complaints, except as documented, Denies nausea and Denies vomiting Reports system reviewed and no additional complaints, except as documented Musc Reports system reviewed and no additional complaints, except as documented Skin/Breast Reports system reviewed and no additional complaints, except as documented Neuro Yes system reviewed and no additional complaints, except as documented Psych Reports system reviewed and no additional complaints, except as documented Endo Reports system reviewed and no additional complaints, except as documented Amol/Lymph Reports system reviewed and no additional complaints, except as documented Aller/Immun Reports system reviewed and no additional complaints, except as documented Exam Const General: cooperative, healthy appearing and no acute distress Orientation: alert, awake and oriented x3 Neck Neck: normal visual inspection and full ROM Resp Effort & Inspection: normal respiratory effort, able to speak in complete sentences and symmetric chest movement GI Inspection: normal to inspection Palpation: soft and other Other: gravid Skin General: no rashes or lesions noted Neuro General: patient alert, patient awake and patient oriented x3 Cognition: normal cognition Speech: speech normal Gait: normal gait Motor: muscle tone normal throughout Extrem General: normal to inspection and full ROM Psych Appearance: grossly normal Mental Status: mental status grossly normal Mood: congruent mood Affect: normal affect Speech and Movement: speech and movement normal Attitude: cooperative Thought Process: normal Thought Content: normal Judgment: judgment good Office Procedures Non-stress Test Non-Stress Test Indications for Monitoring: Yes diabetes Heart Rate Baseline: 135 Heart Rate Variability: moderate Movement: Present Heart Rate Accelerations: Present Decelerations: Absent Contractions: Absent Impression: Yes Reactive Non-Stress Test Results POC Urinalysis 2 Dip (Clinic) Office Urine Glucose Negative Last Edit by Carolyn Vázquez on 01/14/25 08:18 Office Urine Protein Negative Last Edit by Carolyn Vázquez on 01/14/25 08:18 Coding Level of Care Code Off vis,est,level 3 Diagnoses Uterine size date discrepancy O26.849 Gestational diabetes mellitus (GDM) in second trimester controlled on oral hypoglycemic drug O24.415 Gestational diabetes mellitus control: oral hypoglycemic-controlled Trimester: second trimester Insulin resistance complicating O26.899; E88.819 Urinary tract infection in mother during second trimester of O23.42 Trimester: second trimester Multigravida of advanced maternal age in third trimester O09.523 Trimester: third trimester Genital herpes affecting in third trimester O98.313; A60.09 Trimester: third trimester Obesity affecting in second trimester, unspecified obesity type O99.212 Obesity type affecting : unspecified obesity Trimester: second trimester History of gestational diabetes mellitus (GDM) in prior , currently O09.299; Z86.32 Anxiety F41.9 Supervision of high risk in third trimester O09.93 Trimester: third trimester 33 weeks gestation of Z3A.33 Weeks of gestation: 33 weeks CPT Codes Non-Stress Test (30456) Assessment and Plan Assessment and Plan (1) Uterine size date discrepancy : Status: Acute Comment: growth US ordered:32 wk:EFW 68%, AC 98%. 36 w scheduled (2) Gestational diabetes: Status: Acute Qualifiers: Gestational diabetes mellitus control: oral hypoglycemic-controlled Trimester: second trimester Qualified Code(s): O24.415 - Gestational diabetes mellitus in , controlled by oral hypoglycemic drugs (3) Insulin resistance complicating : Status: Acute Comment: on metformin; Dr Hall manages. Growth US 32 and 36 wk. Twice wkly NST at 32 wk. Del at 39 wk (4) UTI (urinary tract infection) during : Status: Acute Qualifiers: Trimester: second trimester Qualified Code(s): O23.42 - Unspecified infection of urinary tract in , second trimester (5) AMA (advanced maternal age) multigravida 35+: Status: Acute Qualifiers: Trimester: third trimester Qualified Code(s): O09.523 - Supervision of elderly multigravida, third trimester Comment: discussed genetic testing. Patient declines. (6) Genital herpes affecting : Status: Acute Qualifiers: Trimester: third trimester Qualified Code(s): O98.313 - Other infections with a predominantly sexual mode of transmission complicating , third trimester; A60.09 - Herpesviral infection of other urogenital tract Comment: valtrex at 34-36 weeks (7) Obesity affecting : Status: Acute Qualifiers: Obesity type affecting : unspecified obesity Trimester: secondtrimester Qualified Code(s):O99.212 - Obesity complicating , second trimester Comment: HGBA1C, BMI 33 (8) History of gestational diabetes mellitus (GDM) in prior , currently: Status: Acute (9) Anxiety: Status: Acute Comment: zoloft stopped. Continue counseling 3 X a week. "feels much better off med" (10) Supervision of high-risk : Status: Acute Qualifiers: Trimester: third trimester Qualified Code(s): O09.93 - Supervision of high risk , unspecified, third trimester Comment: PRR , ISIDRA 03/04/25, PC Aleksander Rodriguez, Farzad (11) : Status: Acute Qualifiers: Weeks of gestation: 33 weeks Qualified Code(s): Z3A.33 - 33 weeks gestation of Comment: declined NIPT & Carrier testing, nl 3 HR GTT, nl anatomy Orders: Orders OB NST Today E88.819 - Insulin resistance, unspecified, O26.899 - Other specified relatedconditions, unspecified trimester POC Urinalysis 2 Dip (Clinic) Today Plan Details Additional Comments: ACOG trimester education reviewed and updated. see problem list details for updated plan management information and see below for orders placed atthis visit. GA appropriate handout given. Clinical Quality Measures Falls Risk Screening/Assistive Devices Have you fallen in the past year?: No 01/14/25 0856 s RALPH> Date _ Alycia Ramires Signature: Date (if applicable) CC: ~ [id number] [facility] [address] [place] [address], [address] [place] [address] OFFICE VISIT Date of Service: 01/11/25 MR#: [id number] Acct: [id number] Name: BRITTANY ROCA Rep #: [id number] : 1985 Provider: Dr. Denise Harris, Age/Sex: 39/F [place] [facility] [place]: Signed Intake Vital Signs 01/06/25 08:44 01/11/25 09:01 01/11/25 09:01 Height 5 ft 10 in 5 ft 10 in 5 ft 10 in Weight: 243 lb 5 oz 247 lb 2 oz BMI 34.9 35.4 BP 105/65 108/67 Intake Visit Reasons: 33wk NST ONLY Drying Oven Tender Required: No Is patient in pain?: No Allergies avocado (avacado) Allergy (Intermediate, Verified 01/11/25 09:00) Swelling of tongue Medications ?Medication ?Instructions ?Recorded ?Confirmed ?Type mv-mn 110-FA 180 mcg-om3 35 mg-dha tab PO DAILY 01/11/25 History 25 mg-epa 5 mg-fish oil chew tablet flash glucose scanning reader #1 ea 08/31/24 01/11/25 Rx (FreeStyle Todd 2 [place]) flash glucose sensor (FreeStyle #1 ea 08/31/24 5 Rx Todd 2 Sensor kit) sertraline 100 mg tablet 100 mg PO QDAY #30 tabs 12/1301/11/25 Rx metformin 500 mg tablet 500 mg PO .COMPLEX #60 tabs 01/03/25 01/11/25 Rx Last Menstrual Period: 05/28/24 Zika: Zika virus screening: Negative : No PFSH PFSH Medical History Varicose veins of both lower extremities Seasonal allergies Normal vaginal delivery Superficial varicosities Depression Gestational diabetes PCOS (polycystic ovarian syndrome) Genital herpes affecting Surgical History History of tonsillectomy Family History Aunt Breast cancer, Onset Age: 40 Maternal- unknown if genetic testing was done. 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 occupational exposures/hazards: No pets and animals: Yes pets and animals: dog(s) history of recent travel: Yes (- June) out of state: Yes out of country: No sexually active: Yes Smoking Status: Never smoker second hand exposure: No alcohol intake: current alcohol intake frequency: holidays/special occasions only details: not while substance use type: does not use well-balanced diet: daily or most days caffeine: No eating out: 1-3 times/week during the past year weight has: increased > 10 lbs what type of physical activity do you participate in: other details: crossfit frequency: 1-2 times per week duration: 45-60 minutes/day amanda/latter-day: Scientologist seatbelt use: always do you feel safe at home: Yes additional social history: - Farzad History 3 Elective abortions Hx Para 2 Spontaneous abortions Hx # Term Pregnancies Ectopic pregnancies Hx # Pregnancies Multiple births # of living children 2 Past Pregnancies Del. Date Name GA/Weeks Outcome Route Bth Weight Infant Gen Labor Lgth Anesthesia Del Locatn Provider FOB 08/26/18 [place] 40 live - full term 9lbs Female 16 hours none [facility] EB Farzad 10/24/20 [place] 39 live - full term 8#10oz Male epi dural [facility] Dr. Ajith Panda Delivery Date: 08/26/18 Last Updated by: Pauline Tay 3rd degree laceration; NICU for possible NEC- she did not have HPI 33wk NST ONLY Details: BRITTANY ROCA is a 39 year old who presents for routine OB visit. OB Visit ISIDRA Calculator Estimated Delivery Date Method Current WG Current Estimate 03/04/25 LMP (Certain) 32w 4d Other Estimates 03/10/25 Ultrasound #1 31w 5d 03/04/25 Ultrasound #2 32w 4d Initial Weight: Not Recorded Date -?-?-?-?-?-?-?-?-?-?-?-?- EGA Weight BP Urine Prot -?-?-?-?-?-?-?-?-?-?-?-?- Glucose FHR FuHt Pres Dilation -?-?-?-?-?-?-?-?-?-?-?-?- Effaced St Visit Note 07/28/24 -?-?-?-?-?-?-?-?-?-?-?-?- 8w 5d 233 lb 2 oz 129/79 -?-?-?-?-?-?-?-?-?-?-?--?- 170 -?-?-?-?-?-?-?-?-?-?-?-?- SM- CRL 1.4 not cons with LMP 08/13/24 -?-?-?-?-?-?-?-?-?-?-?-?- 11w 0d Negative -?-?-?-?-?-?-?-?-?-?-?-?- Negative -?-?-?-?-?-?-?-?-?-?-?-?- nurse visit for UTI sx. culture sent and rx for atb sent due to sx. 08/30/24 -?-?-?-?-?-?-?--?-?-?-?-?- 13w 3d 234 lb 6 oz 115/73 Nega tive -?-?-?-?-?-?-?-?-?-?-?-?- Negative 155 -?-?-?-?-?-?-?-?-?-?-?-?- JV- no lof, vagi nal bleeding, or cramping. due date cleared up. Needs clean catch test of cure and new ob labs 09/27/24 -?-?-?-?-?-?-?-?-?-?-?-?- 17w 3d 236 lb 6 oz 116/75 -?-?-?-?-?-?-?-?-?-?-?--?- 155 -?-?-?-?-?-?-?-?-?-?-?-?- KW- US scheduled with [facility]. no vb/cramping. +flutters. On metformin 500mg for Blood sugars. Reports fasting BS under 95. Encouraged to continue checking BS and follow up with Renny. doing well on ZOloft. KW- US scheduled with [facility]. n o vb/cramping. +flutters. On metformin 500mg for Blood sugars. Reports fasting BS under 95. Encouraged to continue checking BS- has not been consistent- and follow up with DR Kim. doing well on ZOloft. 10/25/24 -?-?-?-?-?-?-?-?-?-?-?-?- 21w 3d 236 lb 2 oz 122/70 Nega tive -?-?-?-?-?-?-?-?-?-?-?-?- Negative 142 -?-?-?-?-?-?-?-?-?-?-?-?- -No VB. Jaziel F M. Insulin resistant/on metformin and seeing Dr Hall -No VB. Good FM. Insulin r esistant/on metformin and seeing Dr Hall. 11/25/24 -?-?-?-?-?-?-?-?-?-?-?-?- 25w 6d 236 lb 9 oz 97/64 Nega tive -?-?-?-?-?-?-?-?-?-?-?-?- Negative 140 26 -?-?-?-?-?-?-?-?-?-?-?-?- - no vb lof go od fm n oregular ctx 12/22/24 -?-?-?-?-?-?-?-?-?-?-?-?- 29w 5d 241 lb 8 oz 113/79 Nega tive -?-?-?-?-?-?-?-?-?-?-?-?- Negative 150 32 -?-?-?-?-?-?-?-?-?-?-?-?- - no vb/lof/ct x. good lam. following blood sugars. 1000mg of metformin nightly. growth US ordered for S>D 12/28/24 -?-?-?-?-?-?-?-?-?-?-?-?- 30w 4d 241 lb 6 oz 102/66 Nega tive -?-?-?-?-?-?-?-?-?-?-?-?- Negative 153 33 -?-?-?-?-?-?-?-?-?-?-?-?- MH-No VB,LOF, CT X. Good FM. Feeling more anxious, not sure zoloft working. Reassured concerning risks to . Discussed changing to buspar or increasing dosage. She prefers to increase dosage. Is seeing counselor 3 X month 01/06/25 -?-?-?-?-?-?-?-?-?-?-?-?- 31w 6d 243 lb 5 oz 105/65 Nega tive -?--?-?-?-?-?-?-?-?-?-?-?- Negative 157 34 -?-?-?-?-?-?-?-?-?-?-?-?- MH-No VB, LOF. G ood FM. Stopped zoloft completely and feels much better. Glucose levels followed per endo and at nl ranges. NSTs2 X wk start next week and has growth US next week 01/11/25 -?-?-?-?-?-?-?-?-?-?-?-?- 32w 4d 247 lb 2 oz 108/67 Nega tive -?-?-?-?-?-?--?-?-?-?-?-?- Negative 150 -?-?-?-?-?-?-?-?-?-?-?-?- JV- nst only tod ay. reactive. states metfomin is helping with fasting levels. followed by Dr. Hall. She has a growth scan now. ACOG First Trimester First Trimester: Desire for , Alcohol, Tobacco Cessation, Illicit/Recreational Drug/Substance Use, Intimate Partner Violence, Barriers to care, Unstable Housing, Communication Barriers, Environmental/Work Hazards, Anticipated Course of Care, Toxoplasmosis Precations, Use of Any med ications, Sexual activity, Dental Care, Sauna/Hot tub use, Seat Belt use, Childbirth classes/Hospital facilities, Travel, Indications for Ultrasound and Screening for Aneuploidy; Discussed Exercise and Discussed Second Trimester Second Trimester: Signs and Symptoms of Labor, Selecting a care provider, Reproductive Life Planning & Contreception, Care Planning, Tobacco Cessation, Depression/Anxiety and Intimate Partner Violence Third Trimester Third Trimester: Pain Management Plans, Labor support person(s), Immediate Larc, Movement Monitoring and Infant Feeding No ; Discussed Trial of Labor after Counseling and Discussed Circumcision preference ROS Const Denies fever(s) GI Reports as per HPI and Denies abdominal pain Reports as per HPI, Denies abnormal vaginal bleeding, Denies dysuria and Denies vaginal discharge Exam Const General: healthy appearing, comfortable and no acute distress GI Inspection: normal to inspection Palpation: soft and nontender Office Procedures Non-stress Test Non-Stress Test Indications for Monitoring: Yes diabetes Heart Rate Baseline: 150 Heart Rate Variability: moderate Movement: Present Heart Rate Accelerations: Present Decelerations: Absent Contractions: Absent Impression: Yes Reactive Non-Stress Test Results POC Urinalysis 2 Dip (Clinic) Office Urine Glucose Negative Last Edit by Isabelle Blancas on 01/11/25 09: 17 Office Urine Protein Negative Last Edit by Isabelle Blancas on 01/11/25 09: 17 Coding Level of Care Code Off vis,est,level 3 Diagnoses Uterine size date discrepancy O26.849 Gestational diabetes mellitus (GDM) in second trimester controlled on oral hypoglycemic drug O24.415 Gestational diabetes mellitus control: oral hypoglycemic-controlled Trimester: second trimester Insulin resistance complicating O26.899; E88.819 Urinary tract infection in mother during second trimester of O23.42 Trimester: second trimester Multigravida of advanced maternal age in third trimester O09.523 Trimester: third trimester Genital herpes affecting in third trimester O98.313; A60.09 Trimester: third trimester Obesity affecting in second trimester, unspecified obesity type O99.212 Obesity type affecting : unspecified obesity Trimester: second trimester History of gestational diabetes mellitus (GDM) in prior , currently O09.299; Z86.32 Anxiety F41.9 Supervision of high risk in third trimester O09.93 Trimester: third trimester 32 weeks gestation of Z3A.32 Weeks of gestation: 32 weeks CPT Codes Non-Stress Test (81504) Assessment and Plan Assessment and Plan (1) Uterine size date discrepancy : Status: Acute Comment: growth US ordered (2) Gestational diabetes: Status: Acute Qualifiers: Gestational diabetes mellitus control: oral hypoglycemic-controlled Trimester: second trimester Qualified Code(s): O24.415 - Gestational diabetes mellitus in , controlled by oral hypoglycemic drugs (3) Insulin resistance complicating : Status: Acute Comment: on metformin; Dr Hall manages. Growth US 32 and 36 wk. Twice wkly NST at 32 wk. Del at 39 wk (4) UTI (urinary tract infection) during : Status: Acute Qualifiers: Trimester: second trimester Qualified Code(s): O23.42 - Unspecified infection of urinary tract in , second trimester (5) AMA (advanced maternal age) multigravida 35+: Status: Acute Qualifiers: Trimester: third trimester Qualified Code(s): O09.523 - Supervision of elderly multigravida, third trimester Comment: discussed genetic testing. Patient declines. (6) Genital herpes affecting : Status: Acute Qualifiers: Trimester: third trimester Qualified Code(s): O98.313 - Other infections with a predominantly sexual mode of transmission complicating , third trimester; A60.09 - Herpesviral infection of other urogenital tract Comment: valtrex at 34-36 weeks (7) Obesity affecting : Status: Acute Qualifiers: Obesity type affecting : unspecified obesity Trimester: secondtrimester Qualified Code(s):O99.212 - Obesity complicating , second trimester Comment: HGBA1C, BMI 33 (8) History of gestational diabetes mellitus (GDM) in prior , currently: Status: Acute (9) Anxiety: Status: Acute Comment: zoloft stopped. Continue counseling 3 X a week. "feels much better off med" (10) Supervision of high-risk : Status: Acute Qualifiers: Trimester: third trimester Qualified Code(s): O09.93 - Supervision of high risk , unspecified, third trimester Comment: PRR , ISIDRA 03/04/25, PC Aleksadner Rodriguez, Farzad (11) : Status: Acute Qualifiers: Weeks of gestation: 32 weeks Qualified Code(s): Z3A.32 - 32 weeks gestation of Comment: declined NIPT & Carrier testing, nl 3 HR GTT, nl anatomy Orders: Orders POC Urinalysis 2 Dip (Clinic) Today OB NST Today E88.819 - Insulin resistance, unspecified, O26.899 - Other specified relatedconditions, unspecified trimester OB Biophysical Prof W/O NST Today E88.819 - Insulin resistance, unspecified, O26.899 - Other specified related conditions, unspecified trimester 01/11/25 0945 e Velde DO> Date _ Sarah Ceja Signature: Date (if applicable) CC: ~ [facility]09-25-2025 [facility] [address], [address] [place] [address] OFFICE VISIT Date of Service: 01/06/25 MR#: [id number] Acct: [id number] Name: BRITTANY ROCA Rep #: [id number] : 1985 Provider: CARROLL Osuna Age/Sex: 39/F [place] [facility] [place] Status: Signed Intake Vital Signs 11/25/24 09:54 12/28/24 15:10 01/06/25 08:44 Height 5 ft 10 in 5 ft 10 in 5 ft 10 in Weight: 243 lb 5 oz BMI 34.9 BP 105/65 Intake Visit Reasons: 32 wk ob Chief Complaint: 32 Week OB Drying Oven Tender Required: No Is patient in pain?: No Allergies avocado (avacado) Allergy (Intermediate, Verified 01/06/25 08:46) Swelling of tongue Medications ?Medication ?Instructions ?Recorded ?Confirmed ?Type mv-mn 110-FA 180 mcg-om3 35 mg-dha tab PO DAILY 01/06/25 History 25 mg-epa 5 mg-fish oil chew tablet flash glucose scanning reader #1 ea 08/31/24 01/06/25 Rx (FreeStyle Todd 2 [place]) flash glucose sensor (FreeStyle #1 ea 08/31/24 5 Rx Todd 2 Sensor kit) sertraline 100 mg tablet 100 mg PO QDAY #30 tabs 12/1301/06/25 Rx metformin 500 mg tablet 500 mg PO .COMPLEX #60 tabs 01/03/25 01/06/25 Rx Last Menstrual Period: 05/28/24 Zika: Zika virus screening: Negative : No PFSH PFSH Medical History Varicose veins of both lower extremities Seasonal allergies Normal vaginal delivery Superficial varicosities Depression Gestational diabetes PCOS (polycystic ovarian syndrome) Genital herpes affecting Surgical History History of tonsillectomy Family History Aunt Breast cancer, Onset Age: 40 Maternal- unknown if genetic testing was done. 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 occupational exposures/hazards: No pets and animals: Yes pets and animals: dog(s) history of recent travel: Yes (- June) out of state: Yes out of country: No sexually active: Yes Smoking Status: Never smoker second hand exposure: No alcohol intake: current alcohol intake frequency: holidays/special occasions only details: not while substance use type: does not use well-balanced diet: daily or most days caffeine: No eating out: 1-3 times/week during the past year weight has: increased > 10 lbs what type of physical activity do you participate in: other details: crossfit frequency: 1-2 times per week duration: 45-60 minutes/day amanda/latter-day: Scientologist seatbelt use: always do you feel safe at home: Yes additional social history: - Farzad History 3 Elective abortions Hx Para 2 Spontaneous abortions Hx # Term Pregnancies Ectopic pregnancies Hx # Pregnancies Multiple births # of living children 2 Past Pregnancies Del. Date Name GA/Weeks Outcome Route Bth Weight Gen Labor Lgth Anesthesia Del Locatn Provider FOB 08/26/18 [place] 40 live - full term 9lbs Female 16 hours none [facility] ZACH Panda 10/24/20 [place] 39 live - full term 8#10oz Male epi dural [facility] Dr. Rainer Panda Delivery Date: 08/26/18 Last Updated by: Pauline Tay 3rd degree laceration; NICU for possible NEC- she did not have HPI 32 wk ob Details: BRITTANY ROCA is a 39 year old who presents for routine OB visit. OB Visit ISIDRA Calculator Estimated Delivery Date Method Current WG Current Estimate 03/04/25 LMP (Certain) 31w 6d Other Estimates 03/10/25 Ultrasound #1 31w 0d 03/04/25 Ultrasound #2 31w 6d Initial Weight: Not Recorded Date -?-?-?-?-?-?-?-?-?-?-?-?- EGA Weight BP Urine Prot -?-?-?-?-?-?-?-?-?-?-?-?- Glucose FHR FuHt Pres Dilation -?-?-?-?-?-?-?-?-?-?-?-?- Effaced St Visit Note 07/28/24 -?-?-?-?-?-?-?-?-?-?-?-?- 8w 5d 233 lb 2 oz 129/79 -?-?-?-?-?-?-?-?-?-?-?-?- 170 -?-?-?-?-?-?-?-?-?-?-?-?- SM- CRL 1.4 not cons with LMP 08/13/24 -?-?-?-?-?-?-?-?-?-?-?-?- 11w 0d Negative -?-?-?-?-?-?-?-?-?-?-?-?- Negative -?-?-?-?-?-?-?-?-?-?-?-?- nurse visit for UTI sx. culture sent and rx for atb sent due to sx. 08/30/24 -?-?-?-?-?-?-?-?-?-?-?-?- 13w 3d 234 lb 6 oz 115/73 Nega tive -?-?-?-?-?-?-?-?-?-?-?-?- Negative 155 -?-?-?-?-?-?-?-?-?-?-?-?- JV- no lof, vagi nal bleeding, or cramping. due date cleared up. Needs clean catch test of cure and new ob labs 09/27/24 -?-?-?-?-?-?-?-?-?-?-?-?- 17w 3d 236 lb 6 oz 116/75 -?-?-?-?-?-?-?-?-?-?-?-?- 155 -?-?-?-?-?-?-?-?-?-?-?-?- KW- US scheduled with [facility]. no vb/cramping. +flutters. On metformin 500mg for Blood sugars. Reports fasting BS under 95. Encouraged to continue checking BS and follow up with Renny. doing well on ZOloft. KW- US scheduled with [facility]. n o vb/cramping. +flutters. On metformin 500mg for Blood sugars. Reports fasting BS under 95. Encouraged to continue checking BS- has not been consistent- and follow up with DR Kim. doing well on ZOloft. 10/25/24 -?-?-?-?-?-?-?-?-?-?-?-?- 21w 3d 236 lb 2 oz 122/70 Nega tive -?-?-?-?-?-?-?-?-?-?-?-?- Negative 142 -?-?-?-?-?-?-?-?-?-?-?-?- -No VB. Jaziel F M. Insulin resistant/on metformin and seeing Dr Hall -No VB. Good FM. Insulin r esistant/on metformin and seeing Dr Hall. 11/25/24 -?-?-?-?-?-?-?-?-?-?-?-?- 25w 6d 236 lb 9 oz 97/64 Nega tive -?-?--?-?-?-?-?-?-?-?-?-?- Negative 140 26 -?-?-?-?-?-?-?-?-?-?-?-?- SM- no vb lof go od fm n oregular ctx 12/22/24 -?-?-?-?-?-?-?-?-?-?-?-?- 29w 5d 241 lb 8 oz 113/79 Nega tive -?-?-?-?-?-?-?-?-?-?-?-?- Negative 150 32 -?-?-?-?-?-?-?-?-?-?-?-?- KW- no vb/lof/ct x. good fm. Rafael following blood sugars. 1000mg of metformin nightly. growth US ordered for S>D 12/28/24 -?-?-?-?-?-?-?-?-?-?-?-?- 30w 4d 241 lb 6 oz 102/66 Nega tive -?-?-?-?-?-?-?-?-?-?-?-?- Negative 153 33 -?-?-?-?-?-?-?-?-?-?-?-?- MH-No VB,LOF, CT X. Good FM. Feeling more anxious, not sure zoloft working. Reassured concerning risks to . Discussed changing to buspar or increasing dosage. She prefers to increase dosage. Is seeing counselor 3 X month 01/06/25 -?-?-?-?-?-?-?-?-?-?-?-?- 31w 6d 243 lb 5 oz 105/65 Nega tive -?-?-?-?-?-?-?-?-?-?-?-?- Negative 157 34 -?-?-?-?-?-?-?-?-?-?-?-?- MH-No VB, LOF. G ood FM. Stopped zoloft completely and feels much better. Glucose levels followed per endo and at nl ranges. NSTs2 X wk start next week and has growth US next week ACOG First Trimester First Trimester: Desire for , Alcohol, Tobacco Cessation, Illicit/Recreational Drug/Substance Use, Intimate Partner Violence, Barriers to care, Unstable Housing, Communication Barriers, Environmental/Work Hazards, Anticipated Course of Care, Toxoplasmosis Precations, Use of Any med ications, Sexual activity, Dental Care, Sauna/Hot tub use, Seat Belt use, Childbirth classes/Hospital facilities, Travel, Indications for Ultrasound and Screening for Aneuploidy; Discussed Exercise and Discussed Second Trimester Second Trimester: Signs and Symptoms of Labor, Selecting a care provider, Reproductive Life Planning & Contreception, Care Planning, Tobacco Cessation, Depression/Anxiety and Intimate Partner Violence Third Trimester Third Trimester: Pain Management Plans, Labor support person(s), Immediate Larc, Movement Monitoring and Feeding No ; Discussed Trial of Labor after Counseling and Discussed Circumcision preference ROS Const Reports system reviewed and no additional complaints, except as documented GI Denies abdominal pain, Denies nausea and Denies vomiting Exam Const General: cooperative Nutritional Appearance: well nourished GI Palpation: soft, nontender and other (gravid) Results POC Urinalysis 2 Dip (Clinic) Office Urine Glucose Negative Last Edit by Ro Zuniga on 01/06/25 09 :02 Office Urine Protein Negative Last Edit by Ro Zuniga on 01/06/25 09 :02 Immunizations Adacel(Tdap Adolesn/Adult)(PF) 2 Lf-(2.5-5-3-5)-5 Lf/0.5 mL IM syringe Performing Provider: Shannon Osuna HEEL SEAT FILLER, HEEL SEAT FILLER-C Performing Location: [facility] Administered by: Ro Zuniga on 01/06/25 09:12 Dose Route Admin Location Dispensed Lot Number Expiration Date Pack age NDC NDC Audiologist 0.5 mL IM Right Deltoid 0.5 mL [id number] 12/12/26 33789-615-03 [id number] [employer] VIS Given Date VIS Provided VIS Publication Date 01/06/25 Single Vaccine 24 Eligibility Eligibility Date Funding Source Not Applicable Coding Level of Care Code Off vis,est,level 3 Diagnoses Supervision of high risk in third trimester O09.93 Trimester: third trimester 31 weeks gestation of Z3A.31 Weeks of gestation: 31 weeks Anxiety F41.9 History of gestational diabetes mellitus (GDM) in prior , currently O09.299; Z86.32 Obesity affecting in second trimester, unspecified obesity type O99.212 Obesity type affecting : unspecified obesity Trimester: second trimester Genital herpes affecting in third trimester O98.313; A60.09 Trimester: third trimester Multigravida of advanced maternal age in third trimester O09.523 Trimester: third trimester Urinary tract infection in mother during second trimester of O23.42 Trimester: second trimester Insulin resistance complicating O26.899; E88.819 Gestational diabetes mellitus (GDM) in second trimester controlled on oral hypoglycemic drug O24.415 Gestational diabetes mellitus control: oral hypoglycemic-controlled Trimester: second trimester Uterine size date discrepancy O26.849 Assessment and Plan Assessment and Plan (1) Supervision of high-risk : Status: Acute Qualifiers: Trimester: third trimester Qualified Code(s): O09.93 - Supervision of high risk , unspecified, third trimester Comment: PRR , ISIDRA 03/04/25, PC Aleksander Rodriguez, Farzad (2) : Status: Acute Qualifiers: Weeks of gestation: 31 weeks Qualified Code(s): Z3A.31 - 31 weeks gestation of Comment: declined NIPT & Carrier testing, nl 3 HR GTT, nl anatomy (3) Anxiety: Status: Acute Comment: zoloft stopped. Continue counseling 3 X a week. "feels much better off med" (4) History of gestational diabetes mellitus (GDM) in prior , currently: Status: Acute (5) Obesity affecting : Status: Acute Qualifiers: Obesity type affecting : unspecified obesity Trimester: secondtrimester Qualified Code(s):O99.212 - Obesity complicating , second trimester Comment: HGBA1C, BMI 33 (6) Genital herpes affecting : Status: Acute Qualifiers: Trimester: third trimester Qualified Code(s): O98.313 - Other infections with a predominantly sexual mode of transmission complicating , third trimester; A60.09 - Herpesviral infection of other urogenital tract Comment: valtrex at 34-36 weeks (7) AMA (advanced maternal age) multigravida 35+: Status: Acute Qualifiers: Trimester: third trimester Qualified Code(s): O09.523 - Supervision of elderly multigravida, third trimester Comment: discussed genetic testing. Patient declines. (8) UTI (urinary tract infection) during : Status: Acute Qualifiers: Trimester: second trimester Qualified Code(s): O23.42 - Unspecified infection of urinary tract in , second trimester (9) Insulin resistance complicating : Status: Acute Comment: on metformin; Dr Hall manages. Growth US 32 and 36 wk. Twice wkly NST at 32 wk. Del at 39 wk (10) Gestational diabetes: Status: Acute Qualifiers: Gestational diabetes mellitus control: oral hypoglycemic-controlled Trimester: second trimester Qualified Code(s): O24.415 - Gestational diabetes mellitus in , controlled by oral hypoglycemic drugs (11) Uterine size date discrepancy : Status: Acute Comment: growth US ordered Orders: Orders POC Urinalysis 2 Dip (Clinic) Today Tdap Immunization Today Z23 - Encounter for immunization Plan problem list reviewed and updated for most current plan of care and appropriate orders placed. Relevant counseling for the gestational age appropriate providedand ACOG education checklist updated. Continue routine care and followup. 01/06/25918 s HEEL SEAT FILLER HEEL SEAT FILLER-C> Date _ Shannon [place] HEEL SEAT FILLER HEEL SEAT FILLER-C Cosigner Signature: Date (if applicable) CC: ~ [facility]09-10-2025 [facility] [address] [place] [address], [address] [place] [address] OFFICE VISIT Date of Service: 12/22/24 MR#: [id number] Acct: [id number] Name: BRITTANY ROCA Rep #: [id number] : 1985 Provider: RALPH Torres Age/Sex: 39/F [place] [facility] [place]: Signed Intake Vital Signs 09/27/24 10:22 11/25/24 09:54 12/22/24 14:07 Height 5 ft 10 in 5 ft 10 in 5 ft 10 in Weight: 241 lb 8 oz BMI 34.6 BP 113/79 Intake Visit Reasons: 30wk ob Chief Complaint: 30wk OB Drying Oven Tender Required: No Is patient in pain?: No Allergies avocado (avacado) Allergy (Intermediate, Verified 12/22/24 14:07) Swelling of tongue Medications ?Medication ?Instructions ?Recorded ?Confirmed ?Type mv-mn 110-FA 180 mcg-om3 35 mg-dha tab PO DAILY 12/22/24 History 25 mg-epa 5 mg-fish oil chew tablet sertraline 50 mg tablet (Zoloft) 50 mg PO QDAY #30 tab s 07/28/24 12/22/24 Rx flash glucose scanning reader #1 ea 08/31/24 12/22/24 Rx (FreeStyle Todd 2 [place]) flash glucose sensor (FreeStyle #1 ea 08/31/24 5 Rx Todd 2 Sensor kit) metformin 500 mg tablet 500 mg PO .COMPLEX 10/08/24 12/22/24 History Last Menstrual Period: 05/28/24 : No PFSH PFSH Medical History Varicose veins of both lower extremities Seasonal allergies Normal vaginal delivery Superficial varicosities Depression Gestational diabetes PCOS (polycystic ovarian syndrome) Genital herpes affecting Surgical History History of tonsillectomy Family History Aunt Breast cancer, Onset Age: 40 Maternal- unknown if genetic testing was done. 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 occupational exposures/hazards: No pets and animals: Yes pets and animals: dog(s) history of recent travel: Yes (- June) out of state: Yes out of country: No sexually active: Yes Smoking Status: Never smoker second hand exposure: No alcohol intake: current alcohol intake frequency: holidays/special occasions only details: not while substance use type: does not use well-balanced diet: daily or most days caffeine: No eating out: 1-3 times/week during the past year weight has: increased > 10 lbs what type of physical activity do you participate in: other details: crossfit frequency: 1-2 times per week duration: 45-60 minutes/day amanda/latter-day: Scientologist seatbelt use: always do you feel safe at home: Yes additional social history: - Farzad History 3 Elective abortions Hx Para 2 Spontaneous abortions Hx # Term Pregnancies Ectopic pregnancies Hx # Pregnancies Multiple births # of living children 2 Past Pregnancies Del. Date Name GA/Weeks Outcome Route Bth Weight Gen Labor Lgth Anesthesia Del Locatn Provider FOB 08/26/18 Jennifer 40 live - full term 9lbs Female 16 hours none [facility] EB Farzad 10/24/20 Aleksander 39 live - full term 8#10oz Male epi dural [facility] Dr. Rainer Panda Delivery Date: 08/26/18 Last Updated by: Pauline Tay 3rd degree laceration; NICU for possible NEC- she did not have HPI 30wk ob Details: BRITTANY ROCA is a 39 year old who presents for routine OB visit. OB Visit ISIDRA Calculator Estimated Delivery Date Method Current WG Current Estimate 03/04/25 LMP (Certain) 29w 5d Other Estimates 03/10/25 Ultrasound #1 28w 6d 03/04/25 Ultrasound #2 29w 5d Initial Weight: Not Recorded Date -?-?-?-?-?-?-?-?-?-?-?-?- EGA Weight BP Urine Prot -?-?-?-?-?-?-?-?-?-?-?-?- Glucose FHR FuHt Pres Dilation -?-?-?-?-?-?-?-?-?-?-?-?- Effaced St Visit Note 07/28/24 -?-?-?-?-?-?-?-?-?-?-?-?- 8w 5d 233 lb 2 oz 129/79 -?-?-?-?-?-?-?-?-?-?-?-?- 170 -?-?-?-?-?-?-?-?-?-?-?-?- SM- CRL 1.4 not cons with LMP 08/13/24 -?-?-?-?-?-?-?-?-?-?-?-?- 11w 0d Negative -?-?-?-?-?-?-?-?-?-?-?-?- Negative -?-?-?-?-?-?-?-?-?-?-?--?- nurse visit for UTI sx. culture sent and rx for atb sent due to sx. 08/30/24 -?-?-?-?-?-?-?-?-?-?-?-?- 13w 3d 234 lb 6 oz 115/73 Nega tive -?-?-?-?-?-?-?-?-?-?-?-?- Negative 155 -?-?-?-?-?-?-?-?-?-?-?-?- JV- no lof, vagi nal bleeding, or cramping. due date cleared up. Needs clean catch test of cure and new ob labs 09/27/24 -?-?-?-?-?-?-?-?-?-?-?-?- 17w 3d 236 lb 6 oz 116/75 -?-?-?-?-?-?-?-?-?-?-?-?- 155 -?-?-?-?-?-?-?-?-?-?-?-?- KW- US scheduled with [facility]. no vb/cramping. +flutters. On metformin 500mg for Blood sugars. Reports fasting BS under 95. Encouraged to continue checking BS and follow up with Renny. doing well on ZOloft. KW- US scheduled with [facility]. n o vb/cramping. +flutters. On metformin 500mg for Blood sugars. Reports fasting BS under 95. Encouraged to continue checking BS- has not been consistent- and follow up with DR Kim. doing well on ZOloft. 10/25/24 -?-?-?-?-?-?-?-?-?-?-?-?- 21w 3d 236 lb 2 oz 122/70 Nega tive -?-?-?-?-?-?-?-?-?-?-?-?- Negative 142 -?-?-?-?-?-?-?-?-?-?-?-?- -No VB. Jaziel Padilla M. Insulin resistant/on metformin and seeing Dr Hall -No VB. Jaziel FM. Insulin r esistant/on metformin and seeing Dr Hall. 11/25/24 -?-?-?-?-?-?-?-?-?-?-?-?- 25w 6d 236 lb 9 oz 97/64 Nega tive -?-?-?-?-?-?-?-?-?-?-?-?- Negative 140 26 -?-?-?-?-?-?-?-?-?-?-?-?- SM- no vb lof go od fm n oregular ctx 12/22/24 -?-?-?-?-?-?-?-?-?-?-?-?- 29w 5d 241 lb 8 oz 113/79 Nega tive -?-?-?-?-?-?-?-?-?-?-?-?- Negative 150 32 -?-?-?-?-?-?-?-?-?-?-?-?- KW- no vb/lof/ct x. good fm. Rafael following blood sugars. 1000mg of metformin nightly. growth US ordered for S>D ACOG First Trimester First Trimester: Desire for , Alcohol, Tobacco Cessation, Illicit/Recreational Drug/Substance Use, Intimate Partner Violence, Barriers to care, Unstable Housing, Communication Barriers, Environmental/Work Hazards, Anticipated Course of Care, Toxoplasmosis Precations, Use of Any med ications, Sexual activity, Dental Care, Sauna/Hot tub use, Seat Belt use, Childbirth classes/Hospital facilities, Travel, Indications for Ultrasound and Screening for Aneuploidy; Discussed Exercise and Discussed Second Trimester Second Trimester: Signs and Symptoms of Labor, Selecting a care provider, Reproductive Life Planning & Contreception, Care Planning, Tobacco Cessation, Depression/Anxiety and Intimate Partner Violence Third Trimester Third Trimester: Pain Management Plans, Labor support person(s), Immediate Larc, Movement Monitoring and Infant Feeding No ; Discussed Trial of Labor after Counseling and Discussed Circumcision preference ROS Const Reports system reviewed and no additional complaints, except as documented Eyes Reports system reviewed and no additional complaints, except as documented ENT Reports system reviewed and no additional complaints, except as documented Card Reports system reviewed and no additional complaints, except as documented Resp Reports system reviewed and no additional complaints, except as documented GI Reports system reviewed and no additional complaints, except as documented, Denies nausea and Denies vomiting Reports system reviewed and no additional complaints, except as documented Musc Reports system reviewed and no additional complaints, except as documented Skin/Breast Reports system reviewed and no additional complaints, except as documented Neuro Yes system reviewed and no additional complaints, except as documented Psych Reports system reviewed and no additional complaints, except as documented Endo Reports system reviewed and no additional complaints, except as documented Amol/Lymph Reports system reviewed and no additional complaints, except as documented Aller/Immun Reports system reviewed and no additional complaints, except as documented Exam Const General: cooperative, healthy appearing and no acute distress Orientation: alert, awake and oriented x3 Neck Neck: normal visual inspection and full ROM Resp Effort & Inspection: normal respiratory effort, able to speak in complete sentences and symmetric chest movement GI Inspection: normal to inspection Palpation: soft and other Other: gravid Skin General: no rashes or lesions noted Neuro General: patient alert, patient awake and patient oriented x3 Cognition: normal cognition Speech: speech normal Gait: normal gait Motor: muscle tone normal throughout Extrem General: normal to inspection and full ROM Psych Appearance: grossly normal Mental Status: mental status grossly normal Mood: congruent mood Affect: normal affect Speech and Movement: speech and movement normal Attitude: cooperative Thought Process: normal Thought Content: normal Judgment: judgment good Results POC Urinalysis 2 Dip (Clinic) Office Urine Glucose Negative Last Edit by Indy Yoder on 12/22/24 14:16 Office Urine Protein Negative Last Edit by Indy Yoder on 12/22/24 14:16 Coding Level of Care Code Off vis,est,level 3 Diagnoses Gestational diabetes mellitus (GDM) in second trimester controlled on oral hypoglycemic drug O24.415 Gestational diabetes mellitus control: oral hypoglycemic-controlled Trimester: second trimester Insulin resistance complicating O26.899; E88.819 Urinary tract infection in mother during second trimester of O23.42 Trimester: second trimester Multigravida of advanced maternal age in third trimester O09.523 Trimester: third trimester Genital herpes affecting in third trimester O98.313; A60.09 Trimester: third trimester Obesity affecting in second trimester, unspecified obesity type O99.212 Obesity type affecting : unspecified obesity Trimester: second trimester History of gestational diabetes mellitus (GDM) in prior , currently O09.299; Z86.32 Anxiety F41.9 Supervision of high risk in second trimester O09.92 Trimester: second trimester 29 weeks gestation of Z3A.29 Weeks of gestation: 29 weeks Assessment and Plan Assessment and Plan (1) Gestational diabetes: Status: Acute Qualifiers: Gestational diabetes mellitus control: oral hypoglycemic-controlled Trimester: second trimester Qualified Code(s): O24.415 - Gestational diabetes mellitus in , controlled by oral hypoglycemic drugs (2) Insulin resistance complicating : Status: Acute Comment: on metformin; Dr Hall manages. Growth US 32 and 36 wk. Twice wkly NST at 32 wk. Del at 39 wk (3) UTI (urinary tract infection) during : Status: Acute Qualifiers: Trimester: second trimester Qualified Code(s): O23.42 - Unspecified infection of urinary tract in , second trimester (4) AMA (advanced maternal age) multigravida 35+: Status: Acute Qualifiers: Trimester: third trimester Qualified Code(s): O09.523 - Supervision of elderly multigravida, third trimester Comment: discussed genetic testing. Patient declines. (5) Genital herpes affecting : Status: Acute Qualifiers: Trimester: third trimester Qualified Code(s): O98.313 - Other infections with a predominantly sexual mode of transmission complicating , third trimester; A60.09 - Herpesviral infection of other urogenital tract Comment: valtrex at 34-36 weeks (6) Obesity affecting : Status: Acute Qualifiers: Obesity type affecting : unspecified obesity Trimester: secondtrimester Qualified Code(s):O99.212 - Obesity complicating , second trimester Comment: HGBA1C, BMI 33 (7) History of gestational diabetes mellitus (GDM) in prior , currently: Status: Acute (8) Anxiety: Status: Acute Comment: doing well on zoloft (9) Supervision of high-risk : Status: Acute Qualifiers: Trimester: second trimester Qualified Code(s): O09.92 - Supervision of high risk , unspecified, second trimester Comment: , ISIDRA 03/04/25, PC Aleksander Rodriguez, Farzad (10) : Status: Acute Qualifiers: Weeks of gestation: 29 weeks Qualified Code(s): Z3A.29 - 29 weeks gestation of Comment: declined NIPT & Carrier testing, nl 3 HR GTT, nl anatomy Orders: Orders POC Urinalysis 2 Dip (Clinic) Today Plan Details Additional Comments: ACOG trimester education reviewed and updated. see problem list details for updated plan management information and see below for orders placed atthis visit. GA appropriate handout given. 12/22/24 1444 s CNM> Date _ Alycia Brian RALPH Cosigner Signature: Date (if applicable) CC: ~ [facility]09-10-2025 Progress note Author Alycia Torres [facility] Note Date/Time December 22, 2024 2:44pm [facility] [address], [address] [place] [address] OFFICE VISIT Date of Service: 12/22/24 MR#: [id number] Acct: [id number] Name: BRITTANY ROCA Rep #: [id number] : 1985 Provider: RALPH Torres Age/Sex: 39/F [place] [facility] [place] Status: Signed Intake Vital Signs 09/27/24 10:22 11/25/24 09:54 12/22/24 14:07 Height 5 ft 10 in 5 ft 10 in 5 ft 10 in Weight: 241 lb 8 oz BMI 34.6 BP 113/79 Intake Visit Reasons: 30wk ob Chief Complaint: 30wk OB Drying Oven Tender Required: No Is patient in pain?: No Allergies avocado (avacado) Allergy (Intermediate, Verified 12/22/24 14:07) Swelling of tongue Medications ?Medication ?Instructions ?Recorded ?Confirmed ?Type mv-mn 110-FA 180 mcg-om3 35 mg-dha tab PO DAILY 12/22/24 History 25 mg-epa 5 mg-fish oil chew tablet sertraline 50 mg tablet (Zoloft) 50 mg PO QDAY #30 tab s 07/28/24 12/22/24 Rx flash glucose scanning reader #1 ea 08/31/24 12/22/24 Rx (FreeStyle Todd 2 [place]) flash glucose sensor (FreeStyle #1 ea 08/31/24 5 Rx Todd 2 Sensor kit) metformin 500 mg tablet 500 mg PO .COMPLEX 10/08/24 12/22/24 History Last Menstrual Period: 05/28/24 : No PFSH PFSH Medical History Varicose veins of both lower extremities Seasonal allergies Normal vaginal delivery Superficial varicosities Depression Gestational diabetes PCOS (polycystic ovarian syndrome) Genital herpes affecting Surgical History History of tonsillectomy Family History Aunt Breast cancer, Onset Age: 40 Maternal- unknown if genetic testing was done. 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 occupational exposures/hazards: No pets and animals: Yes pets and animals: dog(s) history of recent travel: Yes (- June) out of state: Yes out of country: No sexually active: Yes Smoking Status: Never smoker second hand exposure: No alcohol intake: current alcohol intake frequency: holidays/special occasions only details: not while substance use type: does not use well-balanced diet: daily or most days caffeine: No eating out: 1-3 times/week during the past year weight has: increased > 10 lbs what type of physical activity do you participate in: other details: crossfit frequency: 1-2 times per week duration: 45-60 minutes/day amanda/latter-day: Scientologist seatbelt use: always do you feel safe at home: Yes additional social history: - Farzad History 3 Elective abortions Hx Para 2 Spontaneous abortions Hx # Term Pregnancies Ectopic pregnancies Hx # Pregnancies Multiple births # of living children 2 Past Pregnancies Del. Date Name GA/Weeks Outcome Route Bth Weight Infant Gen Labor Lgth Anesthesia Del Locatn Provider FONieves 08/26/18 Jennifer 40 live - full term 9lbs Female 16 hours none [facility] ZACH Panda 10/24/20 Aleksander 39 live - full term 8#10oz Male epi dural [facility] Dr. Rainer Panda Delivery Date: 08/26/18 Last Updated by: Pauline Tay 3rd degree laceration; NICU for possible NEC- she did not have HPI 30wk ob Details: BRITTANY ROCA is a 39 year old who presents for routine OB visit. OB Visit ISIDRA Calculator Estimated Delivery Date Method Current WG Current Estimate 03/04/25 LMP (Certain) 29w 5d Other Estimates 03/10/25 Ultrasound #1 28w 6d 03/04/25 Ultrasound #2 29w 5d Initial Weight: Not Recorded Date -?-?-?-?-?-?-?-?-?-?-?-?- EGA Weight BP Urine Prot -?-?-?-?-?-?-?-?-?-?-?-?- Glucose FHR FuHt Pres Dilation -?-?-?-?-?-?-?-?-?-?-?-?- Effaced St Visit Note 07/28/24 -?-?-?-?-?-?-?-?-?-?-?-?- 8w 5d 233 lb 2 oz 129/79 -?-?-?-?-?-?-?-?-?-?-?-?- 170 -?-?-?-?-?-?-?-?-?-?-?-?- SM- CRL 1.4 not cons with LMP 08/13/24 -?-?-?-?-?-?-?-?-?-?-?-?- 11w 0d Negative -?-?-?-?-?-?-?-?-?-?-?-?- Negative -?-?-?-?-?-?-?-?-?-?-?--?- nurse visit for UTI sx. culture sent and rx for atb sent due to sx. 08/30/24 -?-?-?-?-?-?-?-?-?-?-?-?- 13w 3d 234 lb 6 oz 115/73 Nega tive -?-?-?-?-?-?-?-?-?-?-?-?- Negative 155 -?-?-?-?-?-?-?-?-?-?-?-?- JV- no lof, vagi nal bleeding, or cramping. due date cleared up. Needs clean catch test of cure and new ob labs 09/27/24 -?-?-?-?-?-?-?-?-?-?-?-?- 17w 3d 236 lb 6 oz 116/75 -?-?-?-?-?-?-?-?-?-?-?-?- 155 -?-?-?-?-?-?-?-?-?-?-?-?- KW- US scheduled with [facility]. no vb/cramping. +flutters. On metformin 500mg for Blood sugars. Reports fasting BS under 95. Encouraged to continue checking BS and follow up with DR Kim. doing well on ZOloft. KW- US scheduled with [facility]. n o vb/cramping. +flutters. On metformin 500mg for Blood sugars. Reports fasting BS under 95. Encouraged to continue checking BS- has not been consistent- and follow up with DR Kim. doing well on ZOloft. 10/25/24 -?-?-?-?-?-?-?-?-?-?-?-?- 21w 3d 236 lb 2 oz 122/70 Nega tive -?-?-?-?-?-?-?-?-?-?-?-?- Negative 142 -?-?-?-?-?-?-?-?-?-?-?-?- -No VB. Jaziel F M. Insulin resistant/on metformin and seeing Dr Hall -No VB. Jaziel MISHRA. Insulin r esistant/on metformin and seeing Dr Hall. 11/25/24 -?-?-?-?-?-?-?-?-?-?-?-?- 25w 6d 236 lb 9 oz 97/64 Nega tive -?-?-?-?-?-?-?-?-?-?-?-?- Negative 140 26 -?-?-?-?-?-?-?-?-?-?-?-?- SM- no vb lof go od fm n oregular ctx 12/22/24 -?-?-?-?-?-?-?-?-?-?-?-?- 29w 5d 241 lb 8 oz 113/79 Nega tive -?-?-?-?-?-?-?-?-?-?-?-?- Negative 150 32 -?-?-?-?-?-?-?-?-?-?-?-?- KW- no vb/lof/ct x. good fm. Rafael following blood sugars. 1000mg of metformin nightly. growth US ordered for S>D ACOG First Trimester First Trimester: Desire for , Alcohol, Tobacco Cessation, Illicit/Recreational Drug/Substance Use, Intimate Partner Violence, Barriers to care, Unstable Housing, Communication Barriers, Environmental/Work Hazards, Anticipated Course of Care, Toxoplasmosis Precations, Use of Any medications, Sexual activity, Dental Care, Sauna/Hot tub use, Seat Belt use, Childbirth classes/Hospital facilities, Travel, Indications for Ultrasound and Screening for Aneuploidy; Discussed Exercise and Discussed Second Trimester Second Trimester: Signs and Symptoms of Labor, Selecting a care provider, Reproductive Life Planning & Contreception, Care Planning, Tobacco Cessation, Depression/Anxiety and Intimate Partner Violence Third Trimester Third Trimester: Pain Management Plans, Labor support person(s), Immediate Larc, Movement Monitoring and Feeding No ; Discussed Trial of Labor after Counseling and Discussed Circumcision preference ROS Const Reports system reviewed and no additional complaints, except as documented Eyes Reports system reviewed and no additional complaints, except as documented ENT Reports system reviewed and no additional complaints, except as documented Card Reports system reviewed and no additional complaints, except as documented Resp Reports system reviewed and no additional complaints, except as documented GI Reports system reviewed and no additional complaints, except as documented, Denies nausea and Denies vomiting Reports system reviewed and no additional complaints, except as documented Musc Reports system reviewed and no additional complaints, except as documented Skin/Breast Reports system reviewed and no additional complaints, except as documented Neuro Yes system reviewed and no additional complaints, except as documented Psych Reports system reviewed and no additional complaints, except as documented Endo Reports system reviewed and no additional complaints, except as documented Amol/Lymph Reports system reviewed and no additional complaints, except as documented Aller/Immun Reports system reviewed and no additional complaints, except as documented Exam Const General: cooperative, healthy appearing and no acute distress Orientation: alert, awake and oriented x3 Neck Neck: normal visual inspection and full ROM Resp Effort & Inspection: normal respiratory effort, able to speak in complete sentences and symmetric chest movement GI Inspection: normal to inspection Palpation: soft and other Other: gravid Skin General: no rashes or lesions noted Neuro General: patient alert, patient awake and patient oriented x3 Cognition: normal cognition Speech: speech normal Gait: normal gait Motor: muscle tone normal throughout Extrem General: normal to inspection and full ROM Psych Appearance: grossly normal Mental Status: mental status grossly normal Mood: congruent mood Affect: normal affect Speech and Movement: speech and movement normal Attitude: cooperative Thought Process: normal Thought Content: normal Judgment: judgment good Results POC Urinalysis 2 Dip (Clinic) Office Urine Glucose Negative Last Edit by Indy Yoder on 12/22/24 14:16 Office Urine Protein Negative Last Edit by Indy Yoder on 12/22/24 14:16 Coding Level of Care Code Off vis,est,level 3 Diagnoses Gestational diabetes mellitus (GDM) in second trimester controlled on oral hypoglycemic drug O24.415 Gestational diabetes mellitus control: oral hypoglycemic-controlled Trimester: second trimester Insulin resistance complicating O26.899; E88.819 Urinary tract infection in mother during second trimester of O23.42 Trimester: second trimester Multigravida of advanced maternal age in third trimester O09.523 Trimester: third trimester Genital herpes affecting in third trimester O98.313; A60.09 Trimester: third trimester Obesity affecting in second trimester, unspecified obesity type O99.212 Obesity type affecting : unspecified obesity Trimester: second trimester History of gestational diabetes mellitus (GDM) in prior , currently O09.299; Z86.32 Anxiety F41.9 Supervision of high risk in second trimester O09.92 Trimester: second trimester 29 weeks gestation of Z3A.29 Weeks of gestation: 29 weeks Assessment and Plan Assessment and Plan (1) Gestational diabetes: Status: Acute Qualifiers: Gestational diabetes mellitus control: oral hypoglycemic-controlled Trimester: second trimester Qualified Code(s): O24.415 - Gestational diabetes mellitus in , controlled by oral hypoglycemic drugs (2) Insulin resistance complicating : Status: Acute Comment: on metformin; Dr Hall manages. Growth US 32 and 36 wk. Twice wkly NST at 32 wk. Del at 39 wk (3) UTI (urinary tract infection) during : Status: Acute Qualifiers: Trimester: second trimester Qualified Code(s): O23.42 - Unspecified infection of urinary tract in , second trimester (4) AMA (advanced maternal age) multigravida 35+: Status: Acute Qualifiers: Trimester: third trimester Qualified Code(s): O09.523 - Supervision of elderly multigravida, third trimester Comment: discussed genetic testing. Patient declines. (5) Genital herpes affecting : Status: Acute Qualifiers: Trimester: third trimester Qualified Code(s): O98.313 - Other infections with a predominantly sexual mode of transmission complicating , third trimester; A60.09 - Herpesviral infection of other urogenital tract Comment: valtrex at 34-36 weeks (6) Obesity affecting : Status: Acute Qualifiers: Obesity type affecting : unspecified obesity Trimester: secondtrimester Qualified Code(s): O99.212 - Obesity complicating , second trimester Comment: HGBA1C, BMI 33 (7) History of gestational diabetes mellitus (GDM) in prior , currently: Status: Acute (8) Anxiety: Status: Acute Comment: doing well on zoloft (9) Supervision of high-risk : Status: Acute Qualifiers: Trimester: second trimester Qualified Code(s): O09.92 - Supervision of high risk , unspecified, second trimester Comment: , ISIDRA 03/04/25, Aleksander Paulino, Farzad (10) : Status: Acute Qualifiers: Weeks of gestation: 29 weeks Qualified Code(s): Z3A.29 - 29 weeks gestation of Comment: declined NIPT & Carrier testing, nl 3 HR GTT, nl anatomy Orders: Orders POC Urinalysis 2 Dip (Clinic) Today Plan Details Additional Comments: ACOG trimester education reviewed and updated. see problem list details for updated plan management information and see below for orders placed at this visit. GA appropriate handout given. 12/22/24 1161 <Electronically signed by Alycia godinez CNM> Date _ Alycia Torres CNM Cosigner Signature: Date (if applicable) CC: ~ [facility] Work Phone: [phone] 983-276207-14-2025 Evaluation note* Diagnosis Onset Date Resolution Status Admit Date AMA (advanced maternal age) multigravida 35+ acute October 25, 2024 10:10am Anxiety acute October 25 10:10am Genital herpes affecting acute October 25, 2024 10:10am History of gestational diabetes mellitus (GDM) in prior , currentl acute October 122024 10:10am Obesity affecting acute October 25, 2024 10:10am acute October 25 10:10am Supervision of high-risk acute October 25, 2024 10:10am UTI (urinary tract infection ) during acute October 25, 2024 10:10am Insulin resistance complicating resolved October 10:10am Gestational diabetes acute October 28, 2024 1:37pm AMA (advanced maternal age) multigravida 35+ acute November 25 9:42am Anxiety acute November 25, 025 9:42am Genital herpes affecting acute November 25 9:42am Gestational diabetes acute 2024 9:42am History of gestational diabetes mellitus (GDM) in prior , currentl acute November 25, 2024 9:42am Obesity affecting acute November 25, 2024 9:42am acute November 25, 025 9:42am Supervision of high-risk acute November 25 9:42am UTI (urinary tract infection ) during acute November 25 9:42am Insulin resistance complicating resolved November 252024 9:42am AMA (advanced maternal age) multigravida 35+ acute December 22, 2024 1:59pm Anxiety acute December 1:59pm Genital herpes affecting acute December 22, 2024 1:59pm Gestational diabetes acute Dec 1:59pm History of gestational diabetes mellitus (GDM) in prior , currentl acute 2024 1:59pm Obesity affecting acute December 22, 2024 1:59pm acute December 1:59pm Supervision of high-risk acute December 22, 2024 1:59pm UTI (urinary tract infection ) during acute December 22, 2024 1:59pm Insulin resistance complicating resolved December 22, 2024 1:59pm AMA (advanced maternal age) multigravida 35+ acute December 28, 2024 3:08pm Anxiety acute December 3:08pm Genital herpes affecting acute December 28, 2024 3:08pm Gestational diabetes acute Dec 3:08pm History of gestational diabetes mellitus (GDM) in prior , currentl acute 2024 3:08pm Obesity affecting acute December 28, 2024 3:08pm acute December 3:08pm Supervision of high-risk acute December 28, 2024 3:08pm Uterine size date discrepanc y acute December 28, 2024 3:08pm Insulin resistance complicating resolved December 28, 2024 3:08pm AMA (advanced maternal age) multigravida 35+ acute January 06, 2025 8:43am Anxiety acute December 8:43am Genital herpes affecting acute January 06, 2025 8:43am Gestational diabetes acute Dec 8:43am History of gestational diabetes mellitus (GDM) in prior , currentl acute 2024 8:43am Obesity affecting acute January 06, 2025 8:43am acute December 8:43am Supervision of high-risk acute January 06, 2025 8:43am Uterine size date discrepanc y acute January 06, 2025 8:43am UTI (urinary tract infection ) during acute January 06, 2025 8:43am Insulin resistance complicating resolved January 06, 2025 8:43am AMA (advanced maternal age) multigravida 35+ acute January 11, 2025 8:56am Anxiety acute December 8:56am Genital herpes affecting acute January 11, 2025 8:56am Gestational diabetes acute Dec 8:56am History of gestational diabetes mellitus (GDM) in prior , currentl acute 2024 8:56am Obesity affecting acute January 11, 2025 8:56am acute December 8:56am Supervision of high-risk acute January 11, 2025 8:56am Uterine size date discrepanc y acute January 11, 2025 8:56am UTI (urinary tract infection ) during acute January 11, 2025 8:56am Insulin resistance complicating resolved January 11, 2025 8:56am AMA (advanced maternal age) multigravida 35+ acute January 14 8:03am Anxiety acute January 14, 025 8:03am Genital herpes affecting acute January 14 8:03am Gestational diabetes acute 2024 8:03am History of gestational diabetes mellitus (GDM) in prior , currentl acute Janobe 2024 8:03am Obesity affecting acute January 14, 2025 8:03am acute January 14, 025 8:03am Supervision of high-risk acute January 14 8:03am Uterine size date discrepanc y acute January 14 8:03am UTI (urinary tract infection ) during acute January 14 8:03am Insulin resistance complicating resolved January 142024 8:03am AMA (advanced maternal age) multigravida 35+ acute January 17 9:55am Anxiety acute January 17, 025 9:55am Genital herpes affecting acute January 17 9:55am Gestational diabetes acute 2024 9:55am History of gestational diabetes mellitus (GDM) in prior , currentl acute 2024 9:55am Obesity affecting acute January 17, 2025 9:55am acute January 17, 025 9:55am Supervision of high-risk acute January 17 9:55am Uterine size date discrepanc y acute January 17 9:55am UTI (urinary tract infection ) during acute January 17 9:55am Insulin resistance complicating resolved January 172024 9:55am AMA (advanced maternal age) multigravida 35+ acute January 20 2:00pm Anxiety acute January 20, 2 025 2:00pm Genital herpes affecting acute January 20 2:00pm Gestational diabetes acute 2024 2:00pm History of gestational diabetes mellitus (GDM) in prior , currentl acute Octobe r 2024 2:00pm Obesity affecting acute January 20, 2025 2:00pm acute January 20, 2 025 2:00pm Supervision of high-risk acute January 20 2:00pm Uterine size date discrepanc y acute January 20 2:00pm UTI (urinary tract infection ) during acute January 20 2:00pm Insulin resistance complicating resolved January 202024 2:00pm AMA (advanced maternal age) multigravida 35+ acute January 24, 025 10:18am Anxiety acute January 24, 2025 10:18am Genital herpes affecting acute January 24 10:18am Gestational diabetes acute 2024 10:18am History of gestational diabetes mellitus (GDM) in prior , currentl acute Octobe r 2024 10:18am Obesity affecting acute January 24, 2025 10:18am acute January 24, 2025 10:18am Supervision of high-risk acute January 24 10:18am Uterine size date discrepanc y acute January 24 10:18am UTI (urinary tract infection ) during acute January 24, 025 10:18am Insulin resistance complicating resolved January 122024 10:18am AMA (advanced maternal age) multigravida 35+ acute January 27, 2 025 1:57pm Anxiety acute January 27, 2025 1:57pm Genital herpes affecting acute January 27 1:57pm Gestational diabetes acute 2024 1:57pm History of gestational diabetes mellitus (GDM) in prior , currentl acute Octobe r 2024 1:57pm Obesity affecting acute January 27, 2025 1:57pm acute January 27, 2025 1:57pm Supervision of high-risk acute January 27 1:57pm Uterine size date discrepanc y acute January 27 1:57pm UTI (urinary tract infection ) during acute January 27, 2 025 1:57pm Insulin resistance complicating resolved January 122024 1:57pm AMA (advanced maternal age) multigravida 35+ acute January 27, 025 2:40pm Anxiety acute January 27, 2025 2:40pm Genital herpes affecting acute January 27 2:40pm Gestational diabetes acute 2024 2:40pm History of gestational diabetes mellitus (GDM) in prior , currentl acute Octobe r 2024 2:40pm Obesity affecting acute January 27, 2025 2:40pm acute January 27, 2025 2:40pm Supervision of high-risk acute January 27 2:40pm Uterine size date discrepanc y acute January 27 2:40pm UTI (urinary tract infection ) during acute January 27, 025 2:40pm Insulin resistance complicating resolved January 122024 2:40pm AMA (advanced maternal age) multigravida 35+ acute January 31 025 8:37am Anxiety acute January 31, 2025 8:37am Genital herpes affecting acute January 31 8:37am Gestational diabetes acute 2024 8:37am History of gestational diabetes mellitus (GDM) in prior , currentl acute Octobe 2024 8:37am Obesity affecting acute January 31, 2025 8:37am acute January 31, 2025 8:37am Supervision of high-risk acute January 31 8:37am Uterine size date discrepanc y acute January 31 8:37am UTI (urinary tract infection ) during acute January 31 025 8:37am Insulin resistance complicating resolved January 132024 8:37am AMA (advanced maternal age) multigravida 35+ acute February 03, 2 025 1:36pm Anxiety acute February 03, 2025 1:36pm Genital herpes affecting acute February 03 1:36pm Gestational diabetes acute 2024 1:36pm History of gestational diabetes mellitus (GDM) in prior , currentl acute Octobe r 2024 1:36pm Obesity affecting acute February 03, 2025 1:36pm acute February 03, 2025 1:36pm Supervision of high-risk acute February 03 1:36pm Uterine size date discrepanc y acute February 03 1:36pm UTI (urinary tract infection ) during acute February 03, 025 1:36pm Insulin resistance complicating resolved January 132024 1:36pm AMA (advanced maternal age) multigravida 35+ acute February 07 025 8:22am Anxiety acute February 07, 2025 8:22am Genital herpes affecting acute February 07 8:22am Gestational diabetes acute 2024 8:22am History of gestational diabetes mellitus (GDM) in prior , currentl acute 2024 8:22am Obesity affecting acute February 07, 2025 8:22am acute February 07, 2025 8:22am Supervision of high-risk acute February 07 8:22am Uterine size date discrepanc y acute February 07 8:22am UTI (urinary tract infection ) during acute February 07 8:22am [facility] Work Phone: [phone] 328-640807-14-2025 Evaluation note* Diagnosis Onset Date Resolution Status Admit Date AMA (advanced maternal age) multigravida 35+ acute October 25, 2024 10:10am Anxiety acute October 25 10:10am Genital herpes affecting acute October 25, 2024 10:10am History of gestational diabetes mellitus (GDM) in prior , currentl acute October 122024 10:10am Obesity affecting acute October 25, 2024 10:10am acute October 25 10:10am Supervision of high-risk acute October 25, 2024 10:10am UTI (urinary tract infection ) during acute October 25, 2024 10:10am Insulin resistance complicating resolved October 10:10am Gestational diabetes acute October 28, 2024 1:37pm AMA (advanced maternal age) multigravida 35+ acute November 25 9:42am Anxiety acute November 25, 025 9:42am Genital herpes affecting acute November 25 9:42am Gestational diabetes acute 2024 9:42am History of gestational diabetes mellitus (GDM) in prior , currentl acute November 25, 2024 9:42am Obesity affecting acute November 25, 2024 9:42am acute November 25, 9:42am Supervision of high-risk acute November 25 9:42am UTI (urinary tract infection ) during acute November 25 9:42am Insulin resistance complicating resolved November 252024 9:42am AMA (advanced maternal age) multigravida 35+ acute December 22, 2024 1:59pm Anxiety acute December 1:59pm Genital herpes affecting acute December 22, 2024 1:59pm Gestational diabetes acute Dec 1:59pm History of gestational diabetes mellitus (GDM) in prior , currentl acute 2024 1:59pm Obesity affecting acute December 22, 2024 1:59pm acute December 1:59pm Supervision of high-risk acute December 22, 2024 1:59pm UTI (urinary tract infection ) during acute December 22, 2024 1:59pm Insulin resistance complicating resolved December 22, 2024 1:59pm AMA (advanced maternal age) multigravida 35+ acute December 28, 2024 3:08pm Anxiety acute December 3:08pm Genital herpes affecting acute December 28, 2024 3:08pm Gestational diabetes acute Dec 3:08pm History of gestational diabetes mellitus (GDM) in prior , currentl acute 2024 3:08pm Obesity affecting acute December 28, 2024 3:08pm acute December 3:08pm Supervision of high-risk acute December 28, 2024 3:08pm Uterine size date discrepanc y acute December 28, 2024 3:08pm Insulin resistance complicating resolved December 28, 2024 3:08pm AMA (advanced maternal age) multigravida 35+ acute January 06, 2025 8:43am Anxiety acute December 8:43am Genital herpes affecting acute January 06, 2025 8:43am Gestational diabetes acute Dec 8:43am History of gestational diabetes mellitus (GDM) in prior , currentl acute 2024 8:43am Obesity affecting acute January 06, 2025 8:43am acute December 8:43am Supervision of high-risk acute January 06, 2025 8:43am Uterine size date discrepanc y acute January 06, 2025 8:43am UTI (urinary tract infection ) during acute January 06, 2025 8:43am Insulin resistance complicating resolved January 06, 2025 8:43am AMA (advanced maternal age) multigravida 35+ acute January 11, 2025 8:56am Anxiety acute December 8:56am Genital herpes affecting acute January 11, 2025 8:56am Gestational diabetes acute Dec 8:56am History of gestational diabetes mellitus (GDM) in prior , currentl acute 2024 8:56am Obesity affecting acute January 11, 2025 8:56am acute December 8:56am Supervision of high-risk acute January 11, 2025 8:56am Uterine size date discrepanc y acute January 11, 2025 8:56am UTI (urinary tract infection ) during acute January 11, 2025 8:56am Insulin resistance complicating resolved January 11, 2025 8:56am AMA (advanced maternal age) multigravida 35+ acute January 14 8:03am Anxiety acute January 14, 025 8:03am Genital herpes affecting acute January 14 8:03am Gestational diabetes acute 2024 8:03am History of gestational diabetes mellitus (GDM) in prior , currentl acute 2024 8:03am Obesity affecting acute January 14, 2025 8:03am acute January 14, 025 8:03am Supervision of high-risk acute January 14 8:03am Uterine size date discrepanc y acute January 14 8:03am UTI (urinary tract infection ) during acute January 14 8:03am Insulin resistance complicating resolved January 142024 8:03am AMA (advanced maternal age) multigravida 35+ acute January 17 9:55am Anxiety acute January 17, 2 025 9:55am Genital herpes affecting acute January 17 9:55am Gestational diabetes acute 2024 9:55am History of gestational diabetes mellitus (GDM) in prior , currentl acute Octobe 2024 9:55am Obesity affecting acute January 17, 2025 9:55am acute January 17, 2 025 9:55am Supervision of high-risk acute January 17 9:55am Uterine size date discrepanc y acute January 17 9:55am UTI (urinary tract infection ) during acute January 17 9:55am Insulin resistance complicating resolved January 172024 9:55am AMA (advanced maternal age) multigravida 35+ acute January 20 2:00pm Anxiety acute January 20 025 2:00pm Genital herpes affecting acute January 20 2:00pm Gestational diabetes acute 2024 2:00pm History of gestational diabetes mellitus (GDM) in prior , currentl acute Octobe r 2024 2:00pm Obesity affecting acute January 20, 2025 2:00pm acute January 20, 025 2:00pm Supervision of high-risk acute January 20 2:00pm Uterine size date discrepanc y acute January 20 2:00pm UTI (urinary tract infection ) during acute January 20 2:00pm Insulin resistance complicating resolved January 202024 2:00pm AMA (advanced maternal age) multigravida 35+ acute January 24, 025 10:18am Anxiety acute January 24, 2025 10:18am Genital herpes affecting acute January 24 10:18am Gestational diabetes acute Jano elisa 2024 10:18am History of gestational diabetes mellitus (GDM) in prior , currentl acute Octobe r 2024 10:18am Obesity affecting acute January 24, 2025 10:18am acute January 24, 2025 10:18am Supervision of high-risk acute January 24 10:18am Uterine size date discrepanc y acute January 24 10:18am UTI (urinary tract infection ) during acute January 24, 025 10:18am Insulin resistance complicating resolved January 122024 10:18am AMA (advanced maternal age) multigravida 35+ acute January 27, 2 025 1:57pm Anxiety acute January 27, 2025 1:57pm Genital herpes affecting acute January 27 1:57pm Gestational diabetes acute 2024 1:57pm History of gestational diabetes mellitus (GDM) in prior , currentl acute Octobe r 2024 1:57pm Obesity affecting acute January 27, 2025 1:57pm acute January 27, 2025 1:57pm Supervision of high-risk acute January 27 1:57pm Uterine size date discrepanc y acute January 27 1:57pm UTI (urinary tract infection ) during acute January 27, 2 025 1:57pm Insulin resistance complicating resolved January 122024 1:57pm AMA (advanced maternal age) multigravida 35+ acute January 27, 2 025 2:40pm Anxiety acute January 27, 2025 2:40pm Genital herpes affecting acute January 27 2:40pm Gestational diabetes acute 2024 2:40pm History of gestational diabetes mellitus (GDM) in prior , currentl acute Octobe r 2024 2:40pm Obesity affecting acute January 27, 2025 2:40pm acute January 27, 2025 2:40pm Supervision of high-risk acute January 27 2:40pm Uterine size date discrepanc y acute January 27 2:40pm UTI (urinary tract infection ) during acute January 27, 2 025 2:40pm Insulin resistance complicating resolved January 122024 2:40pm AMA (advanced maternal age) multigravida 35+ acute January 31, 2 025 8:37am Anxiety acute January 31, 2025 8:37am Genital herpes affecting acute January 31 8:37am Gestational diabetes acute 2024 8:37am History of gestational diabetes mellitus (GDM) in prior , currentl acute Octobe 2024 8:37am Obesity affecting acute January 31, 2025 8:37am acute January 31, 2025 8:37am Supervision of high-risk acute January 31 8:37am Uterine size date discrepanc y acute January 31 8:37am UTI (urinary tract infection ) during acute January 31 8:37am Insulin resistance complicating resolved January 132024 8:37am AMA (advanced maternal age) multigravida 35+ acute February 03 1:36pm Anxiety acute February 03, 2025 1:36pm Genital herpes affecting acute February 03 1:36pm Gestational diabetes acute 2024 1:36pm History of gestational diabetes mellitus (GDM) in prior , currentl acute Octobe 2024 1:36pm Obesity affecting acute February 03, 2025 1:36pm acute February 03, 2025 1:36pm Supervision of high-risk acute February 03 1:36pm Uterine size date discrepanc y acute February 03 1:36pm UTI (urinary tract infection ) during acute February 03 1:36pm Insulin resistance complicating resolved January 132024 1:36pm AMA (advanced maternal age) multigravida 35+ acute February 07 8:22am Anxiety acute February 07, 2025 8:22am Genital herpes affecting acute February 07 8:22am Gestational diabetes acute 2024 8:22am History of gestational diabetes mellitus (GDM) in prior , currentl acute Octobe r 2024 8:22am Obesity affecting acute February 07, 2025 8:22am acute February 07, 2025 8:22am Supervision of high-risk acute February 07 8:22am Uterine size date discrepanc y acute February 07 8:22am UTI (urinary tract infection ) during acute October 27th, 2 025 8:22am AMA (advanced maternal age) multigravida 35+ February 10, 2 025 1:33pm Anxiety acute February 10, 2025 1:33pm Genital herpes affecting February 10 1:33pm Gestational diabetes acute 2024 1:33pm History of gestational diabetes mellitus (GDM) in prior , currentl acute Octobe 2024 1:33pm Obesity affecting February 10, 2025 1:33pm acute February 10, 2025 1:33pm Supervision of high-risk acute February 10 1:33pm Uterine size date discrepanc y February 10 1:33pm UTI (urinary tract infection ) during February 10, 025 1:33pm AMA (advanced maternal age) multigravida 35+ acute February 14, 8:44am Anxiety acute February 14, 2025 8:44am Genital herpes affecting February 14 8:44am Gestational diabetes acute 2024 8:44am History of gestational diabetes mellitus (GDM) in prior , currentl acute Novemb er 2024 8:44am Obesity affecting acute February 14, 2025 8:44am acute February 14, 2025 8:44am Supervision of high-risk acute February 14 8:44am Uterine size date discrepanc y February 14 8:44am UTI (urinary tract infection ) during February 14, 8:44am AMA (advanced maternal age) multigravida 35+ February 17, 2 025 1:39pm Anxiety acute February 17, 2025 1:39pm Genital herpes affecting acute February 17 1:39pm Gestational diabetes acute 2024 1:39pm History of gestational diabetes mellitus (GDM) in prior , currentl acute Novemb er 2024 1:39pm Obesity affecting acute February 17, 2025 1:39pm acute February 17, 2025 1:39pm Supervision of high-risk acute February 17 1:39pm Uterine size date discrepanc y February 17 1:39pm UTI (urinary tract infection ) during acute February 17 1:39pm [facility] Work Phone: [phone] Evaluation note* Diagnosis Onset Date Resolution Status Admit Date AMA (advanced maternal age) multigravida 35+ acute September 27, 2024 10:19am Anxiety acute September 27 10:19am Genital herpes affecting acute September 27, 2024 10:19am History of gestational diabetes mellitus (GDM) in prior , currentl acute September 122024 10:19am Insulin resistance complicating acute September 10:19am Obesity affecting acute September 27, 2024 10:19am acute September 27 10:19am Supervision of high-risk acute September 27, 2024 10:19am UTI (urinary tract infection ) during acute September 27, 2024 10:19am AMA (advanced maternal age) multigravida 35+ acute October 25, 2024 10:10am Anxiety acute October 25 10:10am Genital herpes affecting acute October 25, 2024 10:10am History of gestational diabetes mellitus (GDM) in prior , currentl acute October 122024 10:10am Insulin resistance complicating acute October 10:10am Obesity affecting acute October 25, 2024 10:10am acute October 25 10:10am Supervision of high-risk acute October 25, 2024 10:10am UTI (urinary tract infection ) during acute October 25, 2024 10:10am Gestational diabetes acute October 28, 2024 1:37pm AMA (advanced maternal age) multigravida 35+ acute November 25 9:42am Anxiety acute November 25, 025 9:42am Genital herpes affecting acute November 25 9:42am Gestational diabetes acute 2024 9:42am History of gestational diabetes mellitus (GDM) in prior , currentl acute November 25, 2024 9:42am Insulin resistance complicating acute November 252024 9:42am Obesity affecting acute November 25, 2024 9:42am acute November 25, 2 025 9:42am Supervision of high-risk acute November 25 9:42am UTI (urinary tract infection ) during acute November 25 9:42am AMA (advanced maternal age) multigravida 35+ acute December 22, 2024 1:59pm Anxiety acute December 1:59pm Genital herpes affecting acute December 22, 2024 1:59pm Gestational diabetes acute Dec 1:59pm History of gestational diabetes mellitus (GDM) in prior , currentl acute 2024 1:59pm Insulin resistance complicating acute December 22, 2024 1:59pm Obesity affecting acute December 22, 2024 1:59pm acute December 1:59pm Supervision of high-risk acute December 22, 2024 1:59pm UTI (urinary tract infection ) during acute December 22, 2024 1:59pm AMA (advanced maternal age) multigravida 35+ acute December 28, 2024 3:08pm Anxiety acute December 3:08pm Genital herpes affecting acute December 28, 2024 3:08pm Gestational diabetes acute Dec 3:08pm History of gestational diabetes mellitus (GDM) in prior , currentl acute 2024 3:08pm Insulin resistance complicating acute December 28, 2024 3:08pm Obesity affecting acute December 28, 2024 3:08pm acute December 3:08pm Supervision of high-risk acute December 28, 2024 3:08pm Uterine size date discrepanc y acute December 28, 2024 3:08pm AMA (advanced maternal age) multigravida 35+ acute January 06, 2025 8:43am Anxiety acute December 8:43am Genital herpes affecting acute January 06, 2025 8:43am Gestational diabetes acute Dec 8:43am History of gestational diabetes mellitus (GDM) in prior , currentl acute 2024 8:43am Insulin resistance complicating acute January 06, 2025 8:43am Obesity affecting acute January 06, 2025 8:43am acute December 8:43am Supervision of high-risk acute January 06, 2025 8:43am Uterine size date discrepanc y acute January 06, 2025 8:43am UTI (urinary tract infection ) during acute January 06, 2025 8:43am AMA (advanced maternal age) multigravida 35+ acute January 11, 2025 8:56am Anxiety acute December 8:56am Genital herpes affecting acute January 11, 2025 8:56am Gestational diabetes acute Dec 8:56am History of gestational diabetes mellitus (GDM) in prior , currentl acute 2024 8:56am Insulin resistance complicating acute January 11, 2025 8:56am Obesity affecting acute January 11, 2025 8:56am acute December 8:56am Supervision of high-risk acute January 11, 2025 8:56am Uterine size date discrepanc y acute January 11, 2025 8:56am UTI (urinary tract infection ) during acute January 11, 2025 8:56am [facility] Work Phone: 1([phone] 470-609106-16-2025 Evaluation note* Diagnosis Onset Date Resolution Status Admit Date AMA (advanced maternal age) multigravida 35+ acute September 27, 2024 10:19am Anxiety acute September 27 10:19am Genital herpes affecting acute September 27, 2024 10:19am History of gestational diabetes mellitus (GDM) in prior , currentl acute September 122024 10:19am Insulin resistance complicating acute September 10:19am Obesity affecting acute September 27, 2024 10:19am acute September 27 10:19am Supervision of high-risk acute September 27, 2024 10:19am UTI (urinary tract infection ) during acute September 27, 2024 10:19am AMA (advanced maternal age) multigravida 35+ acute October 25, 2024 10:10am Anxiety acute October 25 10:10am Genital herpes affecting acute October 25, 2024 10:10am History of gestational diabetes mellitus (GDM) in prior , currentl acute October 122024 10:10am Insulin resistance complicating acute October 10:10am Obesity affecting acute October 25, 2024 10:10am acute October 25 10:10am Supervision of high-risk acute October 25, 2024 10:10am UTI (urinary tract infection ) during acute October 25, 2024 10:10am Gestational diabetes acute October 28, 2024 1:37pm AMA (advanced maternal age) multigravida 35+ acute November 25 9:42am Anxiety acute November 25, 2 025 9:42am Genital herpes affecting acute November 25 9:42am Gestational diabetes acute 2024 9:42am History of gestational diabetes mellitus (GDM) in prior , currentl acute November 25, 2024 9:42am Insulin resistance complicating acute November 252024 9:42am Obesity affecting acute November 25, 2024 9:42am acute November 25, 025 9:42am Supervision of high-risk acute November 25 9:42am UTI (urinary tract infection ) during acute November 25 9:42am AMA (advanced maternal age) multigravida 35+ acute December 22, 2024 1:59pm Anxiety acute December 1:59pm Genital herpes affecting acute December 22, 2024 1:59pm Gestational diabetes acute Dec 1:59pm History of gestational diabetes mellitus (GDM) in prior , currentl acute 2024 1:59pm Insulin resistance complicating acute December 22, 2024 1:59pm Obesity affecting acute December 22, 2024 1:59pm acute December 1:59pm Supervision of high-risk acute December 22, 2024 1:59pm UTI (urinary tract infection ) during acute December 22, 2024 1:59pm AMA (advanced maternal age) multigravida 35+ acute December 28, 2024 3:08pm Anxiety acute December 3:08pm Genital herpes affecting acute December 28, 2024 3:08pm Gestational diabetes acute Dec 3:08pm History of gestational diabetes mellitus (GDM) in prior , currentl acute 2024 3:08pm Insulin resistance complicating acute December 28, 2024 3:08pm Obesity affecting acute December 28, 2024 3:08pm acute December 3:08pm Supervision of high-risk acute December 28, 2024 3:08pm Uterine size date discrepanc y acute December 28, 2024 3:08pm AMA (advanced maternal age) multigravida 35+ acute January 06, 2025 8:43am Anxiety acute December 8:43am Genital herpes affecting acute January 06, 2025 8:43am Gestational diabetes acute Dec 8:43am History of gestational diabetes mellitus (GDM) in prior , currentl acute 2024 8:43am Insulin resistance complicating acute January 06, 2025 8:43am Obesity affecting acute January 06, 2025 8:43am acute December 8:43am Supervision of high-risk acute January 06, 2025 8:43am Uterine size date discrepanc y acute January 06, 2025 8:43am UTI (urinary tract infection ) during acute January 06, 2025 8:43am AMA (advanced maternal age) multigravida 35+ acute January 11, 2025 8:56am Anxiety acute December 8:56am Genital herpes affecting acute January 11, 2025 8:56am Gestational diabetes acute Dec 8:56am History of gestational diabetes mellitus (GDM) in prior , currentl acute 2024 8:56am Insulin resistance complicating acute January 11, 2025 8:56am Obesity affecting acute January 11, 2025 8:56am acute December 8:56am Supervision of high-risk acute January 11, 2025 8:56am Uterine size date discrepanc y acute January 11, 2025 8:56am UTI (urinary tract infection ) during acute January 11, 2025 8:56am AMA (advanced maternal age) multigravida 35+ acute January 14 8:03am Anxiety acute January 14, 8:03am Genital herpes affecting acute January 14 8:03am Gestational diabetes acute 2024 8:03am History of gestational diabetes mellitus (GDM) in prior , currentl acute 2024 8:03am Insulin resistance complicating acute January 142024 8:03am Obesity affecting acute January 14, 2025 8:03am acute January 14, 2 025 8:03am Supervision of high-risk acute January 14 8:03am Uterine size date discrepanc y acute January 14 8:03am UTI (urinary tract infection ) during acute January 14 8:03am [facility] Work Phone: 1([phone] 803-513506-16-2025 Evaluation note* Diagnosis Onset Date Resolution Status Admit Date AMA (advanced maternal age) multigravida 35+ acute September 27, 2024 10:19am Anxiety acute September 27 10:19am Genital herpes affecting acute September 27, 2024 10:19am History of gestational diabetes mellitus (GDM) in prior , currentl acute September 122024 10:19am Insulin resistance complicating acute September 10:19am Obesity affecting acute September 27, 2024 10:19am acute September 27 10:19am Supervision of high-risk acute September 27, 2024 10:19am UTI (urinary tract infection ) during acute September 27, 2024 10:19am AMA (advanced maternal age) multigravida 35+ acute October 25, 2024 10:10am Anxiety acute October 25 10:10am Genital herpes affecting acute October 25, 2024 10:10am History of gestational diabetes mellitus (GDM) in prior , currentl acute October 122024 10:10am Insulin resistance complicating acute October 10:10am Obesity affecting acute October 25, 2024 10:10am acute October 25 10:10am Supervision of high-risk acute October 25, 2024 10:10am UTI (urinary tract infection ) during acute October 25, 2024 10:10am Gestational diabetes acute October 28, 2024 1:37pm AMA (advanced maternal age) multigravida 35+ acute November 25 9:42am Anxiety acute November 25, 2 025 9:42am Genital herpes affecting acute November 25 9:42am Gestational diabetes acute 2024 9:42am History of gestational diabetes mellitus (GDM) in prior , currentl acute November 25, 2024 9:42am Insulin resistance complicating acute November 252024 9:42am Obesity affecting acute November 25, 2024 9:42am acute November 25, 2 025 9:42am Supervision of high-risk acute November 25 9:42am UTI (urinary tract infection ) during acute November 25 9:42am AMA (advanced maternal age) multigravida 35+ acute December 22, 2024 1:59pm Anxiety acute December 1:59pm Genital herpes affecting acute December 22, 2024 1:59pm Gestational diabetes acute Dec 1:59pm History of gestational diabetes mellitus (GDM) in prior , currentl acute 2024 1:59pm Insulin resistance complicating acute December 22, 2024 1:59pm Obesity affecting acute December 22, 2024 1:59pm acute December 1:59pm Supervision of high-risk acute December 22, 2024 1:59pm UTI (urinary tract infection ) during acute December 22, 2024 1:59pm AMA (advanced maternal age) multigravida 35+ acute December 28, 2024 3:08pm Anxiety acute December 3:08pm Genital herpes affecting acute December 28, 2024 3:08pm Gestational diabetes acute Dec 3:08pm History of gestational diabetes mellitus (GDM) in prior , currentl acute 2024 3:08pm Insulin resistance complicating acute December 28, 2024 3:08pm Obesity affecting acute December 28, 2024 3:08pm acute December 3:08pm Supervision of high-risk acute December 28, 2024 3:08pm Uterine size date discrepanc y acute December 28, 2024 3:08pm AMA (advanced maternal age) multigravida 35+ acute January 06, 2025 8:43am Anxiety acute December 8:43am Genital herpes affecting acute January 06, 2025 8:43am Gestational diabetes acute Dec 8:43am History of gestational diabetes mellitus (GDM) in prior , currentl acute 2024 8:43am Insulin resistance complicating acute January 06, 2025 8:43am Obesity affecting acute January 06, 2025 8:43am acute December 8:43am Supervision of high-risk acute January 06, 2025 8:43am Uterine size date discrepanc y acute January 06, 2025 8:43am UTI (urinary tract infection ) during acute January 06, 2025 8:43am AMA (advanced maternal age) multigravida 35+ acute January 11, 2025 8:56am Anxiety acute December 8:56am Genital herpes affecting acute January 11, 2025 8:56am Gestational diabetes acute Dec 8:56am History of gestational diabetes mellitus (GDM) in prior , currentl acute 2024 8:56am Insulin resistance complicating acute January 11, 2025 8:56am Obesity affecting acute January 11, 2025 8:56am acute December 8:56am Supervision of high-risk acute January 11, 2025 8:56am Uterine size date discrepanc y acute January 11, 2025 8:56am UTI (urinary tract infection ) during acute January 11, 2025 8:56am AMA (advanced maternal age) multigravida 35+ acute January 14 8:03am Anxiety acute January 14, 8:03am Genital herpes affecting acute January 14 8:03am Gestational diabetes acute 2024 8:03am History of gestational diabetes mellitus (GDM) in prior , currentl acute 2024 8:03am Insulin resistance complicating acute January 142024 8:03am Obesity affecting acute January 14, 2025 8:03am acute January 14, 025 8:03am Supervision of high-risk acute January 14 8:03am Uterine size date discrepanc y acute January 14 8:03am UTI (urinary tract infection ) during acute January 14 8:03am AMA (advanced maternal age) multigravida 35+ acute January 17 9:55am Anxiety acute January 17, 025 9:55am Genital herpes affecting acute January 17 9:55am Gestational diabetes acute 2024 9:55am History of gestational diabetes mellitus (GDM) in prior , currentl acute 2024 9:55am Insulin resistance complicating acute January 172024 9:55am Obesity affecting acute January 17, 2025 9:55am acute January 17, 9:55am Supervision of high-risk acute January 17 9:55am Uterine size date discrepanc y acute January 17 9:55am UTI (urinary tract infection ) during acute January 17 9:55am [facility] Work Phone: 1(846) 689-928305-19-2025 Evaluation note* Diagnosis Onset Date Resolution Status Admit Date AMA (advanced maternal age) multigravida 35+ acute August 30, 2024 10:13am Anxiety acute August 30, 2024 10:13am Genital herpes affecting acute August 30, 2024 1 0:13am History of gestational diabetes mellitus (GDM) in prior , currentl acute August 302024 10:13am Obesity affecting acute August 30, 2024 10:13am acute August 30, 2024 10:13am Supervision of high-risk acute August 30, 2024 1 0:13am UTI (urinary tract infection ) during acute August 30, 2024 10:13am AMA (advanced maternal age) multigravida 35+ acute September 27, 2024 10:19am Anxiety acute September 27 10:19am Genital herpes affecting acute September 27, 2024 10:19am History of gestational diabetes mellitus (GDM) in prior , currentl acute September 122024 10:19am Insulin resistance complicating acute September 10:19am Obesity affecting acute September 27, 2024 10:19am acute September 27 10:19am Supervision of high-risk acute September 27, 2024 10:19am UTI (urinary tract infection ) during acute September 27, 2024 10:19am AMA (advanced maternal age) multigravida 35+ acute October 25, 2024 10:10am Anxiety acute October 25 10:10am Genital herpes affecting acute October 25, 2024 10:10am History of gestational diabetes mellitus (GDM) in prior , currentl acute October 122024 10:10am Insulin resistance complicating acute October 10:10am Obesity affecting acute October 25, 2024 10:10am acute October 25 10:10am Supervision of high-risk acute October 25, 2024 10:10am UTI (urinary tract infection ) during acute October 25, 2024 10:10am Gestational diabetes acute October 28, 2024 1:37pm AMA (advanced maternal age) multigravida 35+ acute November 25 9:42am Anxiety acute November 25, 025 9:42am Genital herpes affecting acute November 25 9:42am Gestational diabetes acute 2024 9:42am History of gestational diabetes mellitus (GDM) in prior , currentl acute November 25, 2024 9:42am Insulin resistance complicating acute November 252024 9:42am Obesity affecting acute November 25, 2024 9:42am acute November 25, 2 025 9:42am Supervision of high-risk acute November 25 9:42am UTI (urinary tract infection ) during acute November 25 9:42am AMA (advanced maternal age) multigravida 35+ acute December 22, 2024 1:59pm Anxiety acute December 1:59pm Genital herpes affecting acute December 22, 2024 1:59pm Gestational diabetes acute Dec 1:59pm History of gestational diabetes mellitus (GDM) in prior , currentl acute 2024 1:59pm Insulin resistance complicating acute December 22, 2024 1:59pm Obesity affecting acute December 22, 2024 1:59pm acute December 1:59pm Supervision of high-risk acute December 22, 2024 1:59pm UTI (urinary tract infection ) during acute December 22, 2024 1:59pm [facility] Work Phone: 1([phone] 126-496205-19-2025 Evaluation note* Diagnosis Onset Date Resolution Status Admit Date AMA (advanced maternal age) multigravida 35+ acute August 30, 2024 10:13am Anxiety acute August 30, 2024 10:13am Genital herpes affecting acute August 30, 2024 1 0:13am History of gestational diabetes mellitus (GDM) in prior , currentl acute August 302024 10:13am Obesity affecting acute August 30, 2024 10:13am acute August 30, 2024 10:13am Supervision of high-risk acute August 30, 2024 1 0:13am UTI (urinary tract infection ) during acute August 30, 2024 10:13am AMA (advanced maternal age) multigravida 35+ acute September 27, 2024 10:19am Anxiety acute September 27 10:19am Genital herpes affecting acute September 27, 2024 10:19am History of gestational diabetes mellitus (GDM) in prior , currentl acute September 122024 10:19am Insulin resistance complicating acute September 10:19am Obesity affecting acute September 27, 2024 10:19am acute September 27 10:19am Supervision of high-risk acute September 27, 2024 10:19am UTI (urinary tract infection ) during acute September 27, 2024 10:19am AMA (advanced maternal age) multigravida 35+ acute October 25, 2024 10:10am Anxiety acute October 25 10:10am Genital herpes affecting acute October 25, 2024 10:10am History of gestational diabetes mellitus (GDM) in prior , currentl acute October 122024 10:10am Insulin resistance complicating acute October 10:10am Obesity affecting acute October 25, 2024 10:10am acute October 25 10:10am Supervision of high-risk acute October 25, 2024 10:10am UTI (urinary tract infection ) during acute October 25, 2024 10:10am Gestational diabetes acute October 28, 2024 1:37pm AMA (advanced maternal age) multigravida 35+ acute November 25 9:42am Anxiety acute November 25, 2 025 9:42am Genital herpes affecting acute November 25 9:42am Gestational diabetes acute 2024 9:42am History of gestational diabetes mellitus (GDM) in prior , currentl acute November 25, 2024 9:42am Insulin resistance complicating acute November 252024 9:42am Obesity affecting acute November 25, 2024 9:42am acute November 25, 025 9:42am Supervision of high-risk acute November 25 9:42am UTI (urinary tract infection ) during acute November 25 9:42am AMA (advanced maternal age) multigravida 35+ acute December 22, 2024 1:59pm Anxiety acute December 1:59pm Genital herpes affecting acute December 22, 2024 1:59pm Gestational diabetes acute Dec 1:59pm History of gestational diabetes mellitus (GDM) in prior , currentl acute 2024 1:59pm Insulin resistance complicating acute December 22, 2024 1:59pm Obesity affecting acute December 22, 2024 1:59pm acute December 1:59pm Supervision of high-risk acute December 22, 2024 1:59pm UTI (urinary tract infection ) during acute December 22, 2024 1:59pm AMA (advanced maternal age) multigravida 35+ acute December 28, 2024 3:08pm Anxiety acute December 3:08pm Genital herpes affecting acute December 28, 2024 3:08pm Gestational diabetes acute Dec 3:08pm History of gestational diabetes mellitus (GDM) in prior , currentl acute 2024 3:08pm Insulin resistance complicating acute December 28, 2024 3:08pm Obesity affecting acute December 28, 2024 3:08pm acute December 3:08pm Supervision of high-risk acute December 28, 2024 3:08pm Uterine size date discrepanc y acute December 28, 2024 3:08pm [facility] Work Phone: 1([phone] 841-839005-19-2025 [facility] [address] [place] [address], [address] [place] [address] OFFICE VISIT Date of Service: 08/30/24 MR#: [id number] Acct: [id number] Name: BRITTANY ROCA Rep #: [id number] : 1985 Provider: Dr. Denise Harris DO Age/Sex: 39/F [place] [facility] [place]: Signed Intake Vital Signs 12/04/20 10:15 08/13/24 09:13 08/30/24 10:15 08/30/24 10:16 Height 5 ft 10 in 5 ft 10 in 5 ft 10 in 5 ft 10 in Weight: 234 lb 6 oz BMI 33.6 BP 115/73 Intake Visit Reasons: 14wk ob Drying Oven Tender Required: No Is patient in pain?: No Allergies avocado ([place]) Allergy (Intermediate, Verified 08/30/24 10:15) Swelling of tongue Medications ?Medication ?Instructions ?Recorded ?Confirmed ?Type mv-mn 110-FA 180 mcg-om3 35 mg-dha tab PO DAILY 08/30/24 History 25 mg-epa 5 mg-fish oil chew tablet valacyclovir 500 mg tablet 500 mg PO BID PRN Check wit h 07/23/24 08/30/24 History (Valtrex) primary doctor sertraline 50 mg tablet (Zoloft) 50 mg PO QDAY #30 tab s 07/28/24 08/30/24 Rx metformin 500 mg tablet 500 mg PO .COMPLEX #60 tabs 08/09/24 08/30/24 Rx fosfomycin tromethamine 3 gram 3 g PO ONCE #1 ea 08/1308/30/24 Rx oral packet Last Menstrual Period: 05/28/24 Zika: Zika virus screening: Negative : No PFSH PFSH Medical History Varicose veins of both lower extremities Seasonal allergies Normal vaginal delivery Superficial varicosities Depression Gestational diabetes PCOS (polycystic ovarian syndrome) Genital herpes affecting Surgical History History of tonsillectomy Family History Aunt Breast cancer, Onset Age: 40 Maternal- unknown if genetic testing was done. 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 occupational exposures/hazards: No pets and animals: Yes pets and animals: dog(s) history of recent travel: Yes (- June) out of state: Yes out of country: No sexually active: Yes Smoking Status: Never smoker second hand exposure: No alcohol intake: current alcohol intake frequency: holidays/special occasions only details: not while substance use type: does not use well-balanced diet: daily or most days caffeine: No eating out: 1-3 times/week during the past year weight has: increased > 10 lbs what type of physical activity do you participate in: other details: crossfit frequency: 1-2 times per week duration: 45-60 minutes/day amanda/latter-day: Scientologist seatbelt use: always do you feel safe at home: Yes additional social history: - Farzad History 3 Elective abortions Hx Para 2 Spontaneous abortions Hx # Term Pregnancies Ectopic pregnancies Hx # Pregnancies Multiple births # of living children 2 Past Pregnancies Del. Date Name GA/Weeks Outcome Route Bth Weight Gen Labor Lgth Anesthesia Del Locatn Provider FOB 08/26/18 Jennifer 40 live - full term 9lbs Female 16 hours none [facility] ZACH Panda 10/24/20 Aleksander 39 live - full term 8#10oz Male epi dural [facility] Dr. Rainer Panda Delivery Date: 08/26/18 Last Updated by: Pauline Tay 3rd degree laceration; NICU for possible NEC- she did not have HPI 14wk ob Details: BRITTANY ROCA is a 39 year old who presents for routine OB visit. OB Visit ISIDRA Calculator Estimated Delivery Date Method Current WG Current Estimate 03/04/25 LMP (Certain) 13w 3d Other Estimates 03/10/25 Ultrasound #1 12w 4d 03/04/25 Ultrasound #2 13w 3d Initial Weight: Not Recorded Date -?-?-?-?-?-?-?-?-?-?-?-?- EGA Weight BP Urine Prot -?-?-?-?-?-?-?-?-?-?-?-?- Glucose FHR FuHt Pres Dilation -?-?-?-?-?-?-?-?-?-?-?-?- Effaced St Visit Note 07/28/24 -?-?-?-?-?-?-?-?-?-?-?-?- 8w 5d 233 lb 2 oz 129/79 -?-?-?-?-?-?-?-?-?-?-?-?- 170 -?-?-?-?-?-?-?-?-?-?-?-?- SM- CRL 1.4 not cons with LMP 08/13/24 -?-?-?-?-?-?-?-?-?-?-?-?- 11w 0d Negative -?-?-?-?-?-?-?-?-?-?-?-?- Negative -?-?-?-?-?-?-?-?-?-?-?-?- nurse visit for UTI sx. culture sent and rx for atb sent due to sx. 08/30/24 -?-?-?-?-?-?-?-?-?-?-?-?- 13w 3d 234 lb 6 oz 115/73 Nega tive -?-?-?-?-?-?-?-?-?-?-?-?- Negative 155 -?-?-?-?-?-?-?-?-?-?-?-?- JV- no lof, vagi nal bleeding, or cramping. due date cleared up. Needs clean catch test of cure and new ob labs ACOG First Trimester First Trimester: Desire for , Alcohol, Tobacco Cessation, Illicit/Recreational Drug/Substance Use, Intimate Partner Violence, Barriers to care, Unstable Housing, Communication Barriers, Environmental/Work Hazards, Anticipated Course of Care, Toxoplasmosis Precations, Use of Any med ications, Sexual activity, Dental Care, Sauna/Hot tub use, Seat Belt use, Childbirth classes/Hospital facilities, Travel, Indications for Ultrasound and Screening for Aneuploidy; Discussed Exercise and Discussed Second Trimester Second Trimester: Signs and Symptoms of Labor, Selecting a care provider, Reproductive Life Planning & Contreception, Care Planning, Tobacco Cessation, Depression/Anxiety and Intimate Partner Violence Third Trimester Third Trimester: Pain Management Plans, Labor support person(s), Immediate Larc, Movement Monitoring and Infant Feeding No ; Discussed Trial of Labor after Counseling and Discussed Circumcision preference ROS Const Denies fever(s) GI Reports as per HPI and Denies abdominal pain Reports as per HPI, Denies abnormal vaginal bleeding, Denies dysuria and Denies vaginal discharge Exam Const General: healthy appearing, comfortable and no acute distress GI Inspection: normal to inspection Palpation: soft and nontender Results POC Urinalysis 2 Dip (Clinic) Office Urine Glucose Negative Last Edit by Isabelle Blancas on 08/30/24 10: 27 Office Urine Protein Negative Last Edit by Isabelle Blancas on 08/30/24 10: 27 Coding Level of Care Code Off vis,est,level 3 Diagnoses UTI (urinary tract infection) during O23.40 Multigravida of advanced maternal age in third trimester O09.523 Trimester: third trimester Genital herpes affecting in third trimester O98.313; A60.09 Trimester: third trimester Obesity affecting O99.210 History of gestational diabetes mellitus (GDM) in prior , currently O09.299; Z86.32 Anxiety F41.9 Supervision of high-risk O09.90 13 weeks gestation of Z3A.13 Weeks of gestation: 13 weeks Assessment and Plan Assessment and Plan (1) UTI (urinary tract infection) during : Status: Acute (2) AMA (advanced maternal age) multigravida 35+: Status: Acute Qualifiers: Trimester: third trimester Qualified Code(s): O09.523 - Supervision of elderly multigravida, third trimester Comment: discussed genetic testing. Patient declines. (3) Genital herpes affecting : Status: Acute Qualifiers: Trimester: third trimester Qualified Code(s): O98.313 - Other infections with a predominantly sexual mode of transmission complicating , third trimester; A60.09 - Herpesviral infection of other urogenital tract Comment: valtrex at 34-36 weeks (4) Obesity affecting : Status: Acute Comment: HGBA1C, BMI 33 (5) History of gestational diabetes mellitus (GDM) in prior , currently: Status: Acute (6) Anxiety: Status: Acute Comment: cymbalta, wean off and recommend (7) Supervision of high-risk : Status: Acute Comment: , ISIDRA 03/04/25, Aleksander Paulino, Farzad (8) : Status: Acute Qualifiers: Weeks of gestation: 13 weeks Qualified Code(s): Z3A.13 - 13 weeks gestation of Comment: declined NIPT & Carrier testing Orders: Orders POC Urinalysis 2 Dip (Clinic) Today 08/30/24 1042 e Edith DO> Date _ Sarah Harris DO Cosigntoshia Signature: Date (if applicable) CC: ~ [facility]05-02-2025 Evaluation note* Diagnosis Onset Date Resolution Status Admit Date AMA (advanced maternal age) multigravida 35+ acute August 13, 2024 9 :10am Anxiety acute August 13, 2024 9:10am Genital herpes affecting acute August 13, 2024 9: 10am History of gestational diabe brandt mellitus (GDM) in prior , currentl acute August 13 9:10am Obesity affecting acute August 13, 2024 9:10am acute August 13, 2024 9:10am Supervision of high-risk acute August 13, 2024 9: 10am UTI (urinary tract infection ) during acute August 13, 2024 9 :10am AMA (advanced maternal age) multigravida 35+ acute August 30, 2024 10:13am Anxiety acute August 30, 2024 10:13am Genital herpes affecting acute August 30, 2024 1 0:13am History of gestational diabe brandt mellitus (GDM) in prior , currentl acute August 30 10:13am Obesity affecting acute August 30, 2024 10:13am acute August 30, 2024 10:13am Supervision of high-risk acute August 30, 2024 1 0:13am UTI (urinary tract infection ) during acute August 30, 2024 10:13am AMA (advanced maternal age) multigravida 35+ acute September 27, 2024 10:19am Anxiety acute September 27 10:19am Genital herpes affecting acute September 27, 2024 10:19am History of gestational diabe brandt mellitus (GDM) in prior , currentl acute September 27, 2 025 10:19am Insulin resistance complicat ing acute September 27, 2024 10:19am Obesity affecting acute September 27, 2024 10:19am acute September 27 10:19am Supervision of high-risk acute September 27, 2024 10:19am UTI (urinary tract infection ) during acute September 27, 2024 10:19am AMA (advanced maternal age) multigravida 35+ acute October 25, 2024 10:10am Anxiety acute October 25 10:10am Genital herpes affecting acute October 25, 2024 10:10am History of gestational diabe brandt mellitus (GDM) in prior , currentl acute October 25, 2 025 10:10am Insulin resistance complicat ing acute October 25, 2024 10:10am Obesity affecting acute October 25, 2024 10:10am acute October 25 10:10am Supervision of high-risk acute October 25, 2024 10:10am UTI (urinary tract infection ) during acute October 25, 2024 10:10am Gestational diabetes acute October 28, 2024 1:37pm AMA (advanced maternal age) multigravida 35+ acute [place] 14th, 20 25 9:42am Anxiety acute November 25, 025 9:42am Genital herpes affecting acute November 25 9:42am Gestational diabetes acute 2024 9:42am History of gestational diabe brandt mellitus (GDM) in prior , currentl acute November 25, 2024 9:42am Insulin resistance complicat ing acute November 25 9:42am Obesity affecting acute November 25, 2024 9:42am acute November 25, 9:42am Supervision of high-risk acute November 25 9:42am UTI (urinary tract infection ) during acute November 25 9:42am [facility] Work Phone: 1(980) 471-276404-16-2025 Evaluation note* Diagnosis Onset Date Resolution Status Admit Date AMA (advanced maternal age) multigravida 35+ acute July 28 9:47am Anxiety acute July 28 9:47am Genital herpes affecting acute July 28, 2024 9:47am History of gestational diabe brandt mellitus (GDM) in prior , currentl acute July 28, 2024 9:47am Obesity affecting acute July 28, 2024 9:47am acute July 28 9:47am Supervision of high-risk acute July 28, 2024 9:47am [facility] Work Phone: 1(201) 653-825704-16-2025 Evaluation note* Diagnosis Onset Date Resolution Status Admit Date AMA (advanced maternal age) multigravida 35+ acute July 28 9:47am Anxiety acute July 28 9:47am Genital herpes affecting acute July 28, 2024 9:47am History of gestational diabe brandt mellitus (GDM) in prior , currentl acute July 28, 2024 9:47am Obesity affecting acute July 28, 2024 9:47am acute July 28 9:47am Supervision of high-risk acute July 28, 2024 9:47am AMA (advanced maternal age) multigravida 35+ acute August 13, 2024 9 :10am Anxiety acute August 13, 2024 9:10am Genital herpes affecting acute August 13, 2024 9: 10am History of gestational diabe brandt mellitus (GDM) in prior , currentl acute August 13 9:10am Obesity affecting acute August 13, 2024 9:10am acute August 13, 2024 9:10am Supervision of high-risk acute August 13, 2024 9: 10am UTI (urinary tract infection ) during acute August 13, 2024 9 :10am [facility] Work Phone: 1([phone]) 255-178604-16-2025 Evaluation note* Diagnosis Onset Date Resolution Status Admit Date AMA (advanced maternal age) multigravida 35+ acute July 28 9:47am Anxiety acute July 28 9:47am Genital herpes affecting acute July 28, 2024 9:47am History of gestational diabe brandt mellitus (GDM) in prior , currentl acute July 28, 2024 9:47am Obesity affecting acute July 28, 2024 9:47am acute July 28 9:47am Supervision of high-risk acute July 28, 2024 9:47am AMA (advanced maternal age) multigravida 35+ acute August 13, 2024 9 :10am Anxiety acute August 13, 2024 9:10am Genital herpes affecting acute August 13, 2024 9: 10am History of gestational diabe brandt mellitus (GDM) in prior , currentl acute August 13 9:10am Obesity affecting acute August 13, 2024 9:10am acute August 13, 2024 9:10am Supervision of high-risk acute August 13, 2024 9: 10am UTI (urinary tract infection ) during acute August 13, 2024 9 :10am AMA (advanced maternal age) multigravida 35+ acute August 30, 2024 10:13am Anxiety acute August 30, 2024 10:13am Genital herpes affecting acute August 30, 2024 1 0:13am History of gestational diabe brandt mellitus (GDM) in prior , currentl acute August 30 10:13am Obesity affecting acute August 30, 2024 10:13am acute August 30, 2024 10:13am Supervision of high-risk acute August 30, 2024 1 0:13am UTI (urinary tract infection ) during acute August 30, 2024 10:13am [facility] Work Phone: 1(349) 783-284304-16-2025 Evaluation note* Diagnosis Onset Date Resolution Status Admit Date AMA (advanced maternal age) multigravida 35+ acute July 28 9:47am Anxiety acute July 28 9:47am Genital herpes affecting acute July 28, 2024 9:47am History of gestational diabe brandt mellitus (GDM) in prior , currentl acute July 28, 2024 9:47am Obesity affecting acute July 28, 2024 9:47am acute July 28 9:47am Supervision of high-risk acute July 28, 2024 9:47am AMA (advanced maternal age) multigravida 35+ acute August 13, 2024 9 :10am Anxiety acute August 13, 2024 9:10am Genital herpes affecting acute August 13, 2024 9: 10am History of gestational diabe brandt mellitus (GDM) in prior , currentl acute August 13 9:10am Obesity affecting acute August 13, 2024 9:10am acute August 13, 2024 9:10am Supervision of high-risk acute August 13, 2024 9: 10am UTI (urinary tract infection ) during acute August 13, 2024 9 :10am AMA (advanced maternal age) multigravida 35+ acute August 30, 2024 10:13am Anxiety acute August 30, 2024 10:13am Genital herpes affecting acute August 30, 2024 1 0:13am History of gestational diabe brandt mellitus (GDM) in prior , currentl acute August 30 10:13am Obesity affecting acute August 30, 2024 10:13am acute August 30, 2024 10:13am Supervision of high-risk acute August 30, 2024 1 0:13am UTI (urinary tract infection ) during acute August 30, 2024 10:13am AMA (advanced maternal age) multigravida 35+ acute September 27, 2024 10:19am Anxiety acute September 27 10:19am Genital herpes affecting acute September 27, 2024 10:19am History of gestational diabe brandt mellitus (GDM) in prior , currentl acute September 27, 2 025 10:19am Insulin resistance complicat ing acute September 27, 2024 10:19am Obesity affecting acute September 27, 2024 10:19am acute September 27 10:19am Supervision of high-risk acute September 27, 2024 10:19am UTI (urinary tract infection ) during acute September 27, 2024 10:19am [facility] Work Phone: 1([phone]) 669-691204-16-2025 Evaluation note* Diagnosis Onset Date Resolution Status Admit Date AMA (advanced maternal age) multigravida 35+ acute July 28 9:47am Anxiety acute July 28 9:47am Genital herpes affecting acute July 28, 2024 9:47am History of gestational diabe brandt mellitus (GDM) in prior , currentl acute July 28, 2024 9:47am Obesity affecting acute July 28, 2024 9:47am acute July 28 9:47am Supervision of high-risk acute July 28, 2024 9:47am AMA (advanced maternal age) multigravida 35+ acute August 13, 2024 9 :10am Anxiety acute August 13, 2024 9:10am Genital herpes affecting acute August 13, 2024 9: 10am History of gestational diabe brandt mellitus (GDM) in prior , currentl acute August 13 9:10am Obesity affecting acute August 13, 2024 9:10am acute August 13, 2024 9:10am Supervision of high-risk acute August 13, 2024 9: 10am UTI (urinary tract infection ) during acute August 13, 2024 9 :10am AMA (advanced maternal age) multigravida 35+ acute August 30, 2024 10:13am Anxiety acute August 30, 2024 10:13am Genital herpes affecting acute August 30, 2024 1 0:13am History of gestational diabe brandt mellitus (GDM) in prior , currentl acute August 30 10:13am Obesity affecting acute August 30, 2024 10:13am acute August 30, 2024 10:13am Supervision of high-risk acute August 30, 2024 1 0:13am UTI (urinary tract infection ) during acute August 30, 2024 10:13am AMA (advanced maternal age) multigravida 35+ acute September 27, 2024 10:19am Anxiety acute September 27 10:19am Genital herpes affecting acute September 27, 2024 10:19am History of gestational diabe brandt mellitus (GDM) in prior , currentl acute September 27, 2 025 10:19am Insulin resistance complicat ing acute September 27, 2024 10:19am Obesity affecting acute September 27, 2024 10:19am acute September 27 10:19am Supervision of high-risk acute September 27, 2024 10:19am UTI (urinary tract infection ) during acute September 27, 2024 10:19am AMA (advanced maternal age) multigravida 35+ acute October 25, 2024 10:10am Anxiety acute October 25 10:10am Genital herpes affecting acute October 25, 2024 10:10am History of gestational diabe brandt mellitus (GDM) in prior , currentl acute October 25, 025 10:10am Insulin resistance complicat ing acute October 25, 2024 10:10am Obesity affecting acute October 25, 2024 10:10am acute October 25 10:10am Supervision of high-risk acute October 25, 2024 10:10am UTI (urinary tract infection ) during acute October 25, 2024 10:10am [facility] Work Phone: 1(616) 999-382604-16-2025 Evaluation note* Diagnosis Onset Date Resolution Status Admit Date AMA (advanced maternal age) multigravida 35+ acute July 28 9:47am Anxiety acute July 28 9:47am Genital herpes affecting acute July 28, 2024 9:47am History of gestational diabe brandt mellitus (GDM) in prior , currentl acute July 28, 2024 9:47am Obesity affecting acute July 28, 2024 9:47am acute July 28 9:47am Supervision of high-risk acute July 28, 2024 9:47am AMA (advanced maternal age) multigravida 35+ acute August 13, 2024 9 :10am Anxiety acute August 13, 2024 9:10am Genital herpes affecting acute August 13, 2024 9: 10am History of gestational diabe brandt mellitus (GDM) in prior , currentl acute August 13 9:10am Obesity affecting acute August 13, 2024 9:10am acute August 13, 2024 9:10am Supervision of high-risk acute August 13, 2024 9: 10am UTI (urinary tract infection ) during acute August 13, 2024 9 :10am AMA (advanced maternal age) multigravida 35+ acute August 30, 2024 10:13am Anxiety acute August 30, 2024 10:13am Genital herpes affecting acute August 30, 2024 1 0:13am History of gestational diabe brandt mellitus (GDM) in prior , currentl acute August 30 10:13am Obesity affecting acute August 30, 2024 10:13am acute August 30, 2024 10:13am Supervision of high-risk acute August 30, 2024 1 0:13am UTI (urinary tract infection ) during acute August 30, 2024 10:13am AMA (advanced maternal age) multigravida 35+ acute September 27, 2024 10:19am Anxiety acute September 27 10:19am Genital herpes affecting acute September 27, 2024 10:19am History of gestational diabe bradnt mellitus (GDM) in prior , currentl acute September 27, 025 10:19am Insulin resistance complicat ing acute September 27, 2024 10:19am Obesity affecting acute September 27, 2024 10:19am acute September 27 10:19am Supervision of high-risk acute September 27, 2024 10:19am UTI (urinary tract infection ) during acute September 27, 2024 10:19am AMA (advanced maternal age) multigravida 35+ acute October 25, 2024 10:10am Anxiety acute October 25 10:10am Genital herpes affecting acute October 25, 2024 10:10am History of gestational diabe brandt mellitus (GDM) in prior , currentl acute [place] 14th, 2 025 10:10am Insulin resistance complicat ing acute October 25, 2024 10:10am Obesity affecting acute October 25, 2024 10:10am acute October 25 10:10am Supervision of high-risk acute October 25, 2024 10:10am UTI (urinary tract infection ) during acute October 25, 2024 10:10am Gestational diabetes acute October 28, 2024 1:37pm AMA (advanced maternal age) multigravida 35+ acute November 25 9:42am Anxiety acute November 25 9:42am Genital herpes affecting acute November 25 9:42am Gestational diabetes acute 2024 9:42am History of gestational diabe brandt mellitus (GDM) in prior , currentl acute November 25, 2024 9:42am Insulin resistance complicat ing acute November 25 9:42am Obesity affecting acute November 25, 2024 9:42am acute November 25 9:42am Supervision of high-risk acute November 25 9:42am UTI (urinary tract infection ) during acute November 25 9:42am [facility] Work Phone: Progress note Author Sarah Sharma [facility] Note Date/Time August 30, 2024 10:42 am [facility] [address] [place] [address], [address] [place] [address] OFFICE VISIT Date of Service: 08/30/24 MR#: [id number] Acct: [id number] Name: BRITTANY ROCA Rep #: [id number] : 1985 Provider: Dr. Denise Harris DO Age/Sex: 39/F [place] [facility] [place]: Signed Intake Vital Signs 12/04/20 10:15 08/13/24 09:13 08/30/24 10:15 08/30/24 10:16 Height 5 ft 10 in 5 ft 10 in 5 ft 10 in 5 ft 10 in Weight: 234 lb 6 oz BMI 33.6 BP 115/73 Intake Visit Reasons: 14wk ob Drying Oven Tender Required: No Is patient in pain?: No Allergies avocado ([place]) Allergy (Intermediate, Verified 08/30/24 10:15) Swelling of tongue Medications ?Medication ?Instructions ?Recorded ?Confirmed ?Type mv-mn 110-FA 180 mcg-om3 35 mg-dha tab PO DAILY 08/30/24 History 25 mg-epa 5 mg-fish oil chew tablet valacyclovir 500 mg tablet 500 mg PO BID PRN Check wit h 07/23/24 08/30/24 History (Valtrex) primary doctor sertraline 50 mg tablet (Zoloft) 50 mg PO QDAY #30 tab s 07/28/24 08/30/24 Rx metformin 500 mg tablet 500 mg PO .COMPLEX #60 tabs 08/09/24 08/30/24 Rx fosfomycin tromethamine 3 gram 3 g PO ONCE #1 ea 08/1308/30/24 Rx oral packet Last Menstrual Period: 05/28/24 Zika: Zika virus screening: Negative : No PFSH PFSH Medical History Varicose veins of both lower extremities Seasonal allergies Normal vaginal delivery Superficial varicosities Depression Gestational diabetes PCOS (polycystic ovarian syndrome) Genital herpes affecting Surgical History History of tonsillectomy Family History Aunt Breast cancer, Onset Age: 40 Maternal- unknown if genetic testing was done. 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 occupational exposures/hazards: No pets and animals: Yes pets and animals: dog(s) history of recent travel: Yes (- June) out of state: Yes out of country: No sexually active: Yes Smoking Status: Never smoker second hand exposure: No alcohol intake: current alcohol intake frequency: holidays/special occasions only details: not while substance use type: does not use well-balanced diet: daily or most days caffeine: No eating out: 1-3 times/week during the past year weight has: increased > 10 lbs what type of physical activity do you participate in: other details: crossfit frequency: 1-2 times per week duration: 45-60 minutes/day amanda/latter-day: Scientologist seatbelt use: always do you feel safe at home: Yes additional social history: - Farzad History 3 Elective abortions Hx Para 2 Spontaneous abortions Hx # Term Pregnancies Ectopic pregnancies Hx # Pregnancies Multiple births # of living children 2 Past Pregnancies Del. Date Name GA/Weeks Outcome Route Bth Weight Gen Labor Lgth Anesthesia Del Locatn Provider FOB 08/26/18 Jennifer 40 live - full term 9lbs Female 16 hours none [facility] EB Farzad 10/24/20 Aleksander 39 live - full term 8#10oz Male epi dural [facility] Dr. Rainer Panda Delivery Date: 08/26/18 Last Updated by: Pauline Tay 3rd degree laceration; NICU for possible NEC- she did not have HPI 14wk ob Details: BRITTANY ROCA is a 39 year old who presents for routine OB visit. OB Visit ISIDRA Calculator Estimated Delivery Date Method Current WG Current Estimate 03/04/25 LMP (Certain) 13w 3d Other Estimates 03/10/25 Ultrasound #1 12w 4d 03/04/25 Ultrasound #2 13w 3d Initial Weight: Not Recorded Date -?-?-?-?-?-?-?-?-?-?-?-?- EGA Weight BP Urine Prot -?-?-?-?-?-?-?-?-?-?-?-?- Glucose FHR FuHt Pres Dilation -?-?-?-?-?-?-?-?-?-?-?-?- Effaced St Visit Note 07/28/24 -?-?-?-?-?-?-?-?-?-?-?-?- 8w 5d 233 lb 2 oz 129/79 -?-?-?-?-?-?-?-?-?-?-?-?- 170 -?-?-?-?-?-?-?-?-?-?-?-?- SM- CRL 1.4 not cons with LMP 08/13/24 -?-?-?-?-?-?-?-?-?-?-?-?- 11w 0d Negative -?-?-?-?-?-?-?-?-?-?-?-?- Negative -?-?-?-?-?-?-?-?-?-?-?-?- nurse visit for UTI sx. culture sent and rx for atb sent due to sx. 08/30/24 -?-?-?-?-?-?-?-?-?-?-?-?- 13w 3d 234 lb 6 oz 115/73 Nega tive -?-?-?-?-?-?-?-?-?-?-?-?- Negative 155 -?-?-?-?-?-?-?-?-?-?-?-?- JV- no lof, vagi nal bleeding, or cramping. due date cleared up. Needs clean catch test of cure and new ob labs [facility]COG First Trimester First Trimester: Desire for , Alcohol, Tobacco Cessation, Illicit/Recreational Drug/Substance Use, Intimate Partner Violence, Barriers to care, Unstable Housing, Communication Barriers, Environmental/Work Hazards, Anticipated Course of Care, Toxoplasmosis Precations, Use of Any medications, Sexual activity, Dental Care, Sauna/Hot tub use, Seat Belt use, Childbirth classes/Hospital facilities, Travel, Indications for Ultrasound and Screening for Aneuploidy; Discussed Exercise and Discussed Second Trimester Second Trimester: Signs and Symptoms of Labor, Selecting a care provider, Reproductive Life Planning & Contreception, Care Planning, Tobacco Cessation, Depression/Anxiety and Intimate Partner Violence Third Trimester Third Trimester: Pain Management Plans, Labor support person(s), Immediate Larc, Movement Monitoring and Feeding No ; Discussed Trial of Labor after Counseling and Discussed Circumcision preference ROS Const Denies fever(s) GI Reports as per HPI and Denies abdominal pain Reports as per HPI, Denies abnormal vaginal bleeding, Denies dysuria and Denies vaginal discharge Exam Const General: healthy appearing, comfortable and no acute distress GI Inspection: normal to inspection Palpation: soft and nontender Results POC Urinalysis 2 Dip (Clinic) Office Urine Glucose Negative Last Edit by Isabelle Blancas on 08/30/24 10: 27 Office Urine Protein Negative Last Edit by Isabelle Blancas on 08/30/24 10: 27 Coding Level of Care Code Off vis,est,level 3 Diagnoses UTI (urinary tract infection) during O23.40 Multigravida of advanced maternal age in third trimester O09.523 Trimester: third trimester Genital herpes affecting in third trimester O98.313; A60.09 Trimester: third trimester Obesity affecting O99.210 History of gestational diabetes mellitus (GDM) in prior , currently O09.299; Z86.32 Anxiety F41.9 Supervision of high-risk O09.90 13 weeks gestation of Z3A.13 Weeks of gestation: 13 weeks Assessment and Plan Assessment and Plan (1) UTI (urinary tract infection) during : Status: Acute (2) AMA (advanced maternal age) multigravida 35+: Status: Acute Qualifiers: Trimester: third trimester Qualified Code(s): O09.523 - Supervision of elderly multigravida, third trimester Comment: discussed genetic testing. Patient declines. (3) Genital herpes affecting : Status: Acute Qualifiers: Trimester: third trimester Qualified Code(s): O98.313 - Other infections with a predominantly sexual mode of transmission complicating , third trimester; A60.09 - Herpesviral infection of other urogenital tract Comment: valtrex at 34-36 weeks (4) Obesity affecting : Status: Acute Comment: HGBA1C, BMI 33 (5) History of gestational diabetes mellitus (GDM) in prior , currently: Status: Acute (6) Anxiety: Status: Acute Comment: cymbalta, wean off and recommend (7) Supervision of high-risk : Status: Acute Comment: , ISIDRA 03/04/25, Aleksander Paulino, Farzad (8) : Status: Acute Qualifiers: Weeks of gestation: 13 weeks Qualified Code(s): Z3A.13 - 13 weeks gestation of Comment: declined NIPT & Carrier testing Orders: Orders POC Urinalysis 2 Dip (Clinic) Today 08/30/24 1042 <Electronically signed by Sarah Vieira DO> Date _ Sarah CostaEspinoza Signature: Date (if applicable) CC: ~ [facility] Work Phone: Progress note Author Shannon Osuna [facility] Note Date/Time January 06, 2025 9:10am [facility] [address], [address] [place] [address] OFFICE VISIT Date of Service: 01/06/25 MR#: [id number] Acct: [id number] Name: BRITTANY ROCA Rep #: [id number] : 1985 Provider: CARROLL Osuna Age/Sex: 39/F [place] [facility] [place]: Signed Intake Vital Signs 11/25/24 09:54 12/28/24 15:10 01/06/25 08:44 Height 5 ft 10 in 5 ft 10 in 5 ft 10 in Weight: 243 lb 5 oz BMI 34.9 BP 105/65 Intake Visit Reasons: 32 wk ob Chief Complaint: 32 Week OB Drying Oven Tender Required: No Is patient in pain?: No Allergies avocado (avacado) Allergy (Intermediate, Verified 01/06/25 08:46) Swelling of tongue Medications ?Medication ?Instructions ?Recorded ?Confirmed ?Type mv-mn 110-FA 180 mcg-om3 35 mg-dha tab PO DAILY 01/06/25 History 25 mg-epa 5 mg-fish oil chew tablet flash glucose scanning reader #1 ea 08/31/24 01/06/25 Rx (FreeStyle Todd 2 [place]) flash glucose sensor (FreeStyle #1 ea 08/31/24 5 Rx Todd 2 Sensor kit) sertraline 100 mg tablet 100 mg PO QDAY #30 tabs 12/1301/06/25 Rx metformin 500 mg tablet 500 mg PO .COMPLEX #60 tabs 01/03/25 01/06/25 Rx Last Menstrual Period: 05/28/24 Zika: Zika virus screening: Negative : No PFSH PFSH Medical History Varicose veins of both lower extremities Seasonal allergies Normal vaginal delivery Superficial varicosities Depression Gestational diabetes PCOS (polycystic ovarian syndrome) Genital herpes affecting Surgical History History of tonsillectomy Family History Aunt Breast cancer, Onset Age: 40 Maternal- unknown if genetic testing was done. 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 occupational exposures/hazards: No pets and animals: Yes pets and animals: dog(s) history of recent travel: Yes (- June) out of state: Yes out of country: No sexually active: Yes Smoking Status: Never smoker second hand exposure: No alcohol intake: current alcohol intake frequency: holidays/special occasions only details: not while substance use type: does not use well-balanced diet: daily or most days caffeine: No eating out: 1-3 times/week during the past year weight has: increased > 10 lbs what type of physical activity do you participate in: other details: crossfit frequency: 1-2 times per week duration: 45-60 minutes/day amanda/latter-day: Scientologist seatbelt use: always do you feel safe at home: Yes additional social history: - Farzad History 3 Elective abortions Hx Para 2 Spontaneous abortions Hx # Term Pregnancies Ectopic pregnancies Hx # Pregnancies Multiple births # of living children 2 Past Pregnancies Del. Date Name GA/Weeks Outcome Route Bth Weight Infant Gen Labor Lgth Anesthesia Del Locatn Provider FONieves 08/26/18 Jennifer 40 live - full term 9lbs Female 16 hours none [facility] ZACH Panda 10/24/20 Aleksander 39 live - full term 8#10oz Male epi dural [facility] Dr. Rainer Panda Delivery Date: 08/26/18 Last Updated by: Pauline Tay 3rd degree laceration; NICU for possible NEC- she did not have HPI 32 wk ob Details: BRITTANY ROCA is a 39 year old who presents for routine OB visit. OB Visit ISIDRA Calculator Estimated Delivery Date Method Current WG Current Estimate 03/04/25 LMP (Certain) 31w 6d Other Estimates 03/10/25 Ultrasound #1 31w 0d 03/04/25 Ultrasound #2 31w 6d Initial Weight: Not Recorded Date -?-?-?-?-?-?-?-?-?-?-?-?- EGA Weight BP Urine Prot -?-?-?-?-?-?-?-?-?-?-?-?- Glucose FHR FuHt Pres Dilation -?-?-?-?-?-?-?-?-?-?-?-?- Effaced St Visit Note 07/28/24 -?-?-?-?-?-?-?-?-?-?-?-?- 8w 5d 233 lb 2 oz 129/79 -?-?-?-?-?-?-?-?-?-?-?-?- 170 -?-?-?-?-?-?-?-?-?-?-?-?- SM- CRL 1.4 not cons with LMP 08/13/24 -?-?-?-?-?-?-?-?-?-?-?-?- 11w 0d Negative -?-?-?-?-?-?-?-?-?-?-?-?- Negative -?-?-?-?-?-?-?-?-?-?-?-?- nurse visit for UTI sx. culture sent and rx for atb sent due to sx. 08/30/24 -?-?-?-?-?-?-?-?-?-?-?-?- 13w 3d 234 lb 6 oz 115/73 Nega tive -?-?-?-?-?-?-?-?-?-?-?-?- Negative 155 -?-?-?-?-?-?-?-?-?-?-?-?- JV- no lof, vagi nal bleeding, or cramping. due date cleared up. Needs clean catch test of cure and new ob labs 09/27/24 -?-?-?-?-?-?-?-?-?-?-?-?- 17w 3d 236 lb 6 oz 116/75 -?-?-?-?-?-?-?-?-?-?-?-?- 155 -?-?-?-?-?-?-?-?-?-?-?-?- KW- US scheduled with [facility]. no vb/cramping. +flutters. On metformin 500mg for Blood sugars. Reports fasting BS under 95. Encouraged to continue checking BS and follow up with DR Kim. doing well on ZOloft. KW- US scheduled with [facility]. n o vb/cramping. +flutters. On metformin 500mg for Blood sugars. Reports fasting BS under 95. Encouraged to continue checking BS- has not been consistent- and follow up with DR Kim. doing well on ZOloft. 10/25/24 -?-?-?-?-?-?-?-?-?-?-?-?- 21w 3d 236 lb 2 oz 122/70 Nega tive -?-?-?-?-?-?-?-?-?-?-?-?- Negative 142 -?-?-?-?-?-?-?-?-?-?-?-?- -No VB. Good F M. Insulin resistant/on metformin and seeing Dr Hall -No VB. Good FM. Insulin r esistant/on metformin and seeing Dr Hall. 11/25/24 -?-?-?-?-?-?-?-?-?-?-?-?- 25w 6d 236 lb 9 oz 97/64 Nega tive -?-?--?-?-?-?-?-?-?-?-?-?- Negative 140 26 -?-?-?-?-?-?-?-?-?-?-?-?- SM- no vb lof go od fm n oregular ctx 12/22/24 -?-?-?-?-?-?-?-?-?-?-?-?- 29w 5d 241 lb 8 oz 113/79 Nega tive -?-?-?-?-?-?-?-?-?-?-?-?- Negative 150 32 -?-?-?-?-?-?-?-?-?-?-?-?- KW- no vb/lof/ct x. good fm. Rafael following blood sugars. 1000mg of metformin nightly. growth US ordered for S>D 12/28/24 -?-?-?-?-?-?-?-?-?-?-?-?- 30w 4d 241 lb 6 oz 102/66 Nega tive -?-?-?-?-?-?-?-?-?-?-?-?- Negative 153 33 -?-?-?-?-?-?-?-?-?-?-?-?- MH-No VB,LOF, CT X. Good FM. Feeling more anxious, not sure zoloft working. Reassured concerning risks to . Discussed changing to buspar or increasing dosage. She prefers to increase dosage. Is seeing counselor 3 X month 01/06/25 -?-?-?-?-?-?-?-?-?-?-?-?- 31w 6d 243 lb 5 oz 105/65 Nega tive -?-?-?-?-?-?-?-?-?-?-?-?- Negative 157 34 -?-?-?-?-?-?-?-?-?-?-?-?- MH-No VB, LOF. G ood FM. Stopped zoloft completely and feels much better. Glucose levels followed per endo and at nl ranges. NSTs2 X wk start next week and has growth US next week ACOG First Trimester First Trimester: Desire for , Alcohol, Tobacco Cessation, Illicit/Recreational Drug/Substance Use, Intimate Partner Violence, Barriers to care, Unstable Housing, Communication Barriers, Environmental/Work Hazards, Anticipated Course of Care, Toxoplasmosis Precations, Use of Any medications, Sexual activity, Dental Care, Sauna/Hot tub use, Seat Belt use, Childbirth classes/Hospital facilities, Travel, Indications for Ultrasound and Screening for Aneuploidy; Discussed Exercise and Discussed Second Trimester Second Trimester: Signs and Symptoms of Labor, Selecting a care provider, Reproductive Life Planning & Contreception, Care Planning, Tobacco Cessation, Depression/Anxiety and Intimate Partner Violence Third Trimester Third Trimester: Pain Management Plans, Labor support person(s), Immediate Larc, Movement Monitoring and Infant Feeding No ; Discussed Trial of Labor after Counseling and Discussed Circumcision preference ROS Const Reports system reviewed and no additional complaints, except as documented GI Denies abdominal pain, Denies nausea and Denies vomiting Exam Const General: cooperative Nutritional Appearance: well nourished GI Palpation: soft, nontender and other (gravid) Results POC Urinalysis 2 Dip (Clinic) Office Urine Glucose Negative Last Edit by Ro Zuniga on 01/06/25 09 :02 Office Urine Protein Negative Last Edit by Ro Zuniga on 01/06/25 09 :02 Immunizations Adacel(Tdap Adolesn/Adult)(PF) 2 Lf-(2.5-5-3-5)-5 Lf/0.5 mL IM syringe Performing Provider: Shannon Osuna HEEL SEAT FILLER, HEEL SEAT FILLER-C Performing Location: [facility] Administered by: Ro Zuniga on 01/06/25 09:12 Dose Route Admin Location Dispensed Lot Number Expiration Date Pack age NDC NDC Audiologist 0.5 mL IM Right Deltoid 0.5 mL [id number] 12/12/26 19300-714-07 [id number] SANOFI- PASTEUR VIS Given Date VIS Provided VIS Publication Date 01/06/25 Single Vaccine 24 Eligibility Eligibility Date Funding Source Not Applicable Coding Level of Care Code Off vis,est,level 3 Diagnoses Supervision of high risk in third trimester O09.93 Trimester: third trimester 31 weeks gestation of Z3A.31 Weeks of gestation: 31 weeks Anxiety F41.9 History of gestational diabetes mellitus (GDM) in prior , currently O09.299; Z86.32 Obesity affecting in second trimester, unspecified obesity type O99.212 Obesity type affecting : unspecified obesity Trimester: second trimester Genital herpes affecting in third trimester O98.313; A60.09 Trimester: third trimester Multigravida of advanced maternal age in third trimester O09.523 Trimester: third trimester Urinary tract infection in mother during second trimester of O23.42 Trimester: second trimester Insulin resistance complicating O26.899; E88.819 Gestational diabetes mellitus (GDM) in second trimester controlled on oral hypoglycemic drug O24.415 Gestational diabetes mellitus control: oral hypoglycemic-controlled Trimester: second trimester Uterine size date discrepancy O26.849 Assessment and Plan Assessment and Plan (1) Supervision of high-risk : Status: Acute Qualifiers: Trimester: third trimester Qualified Code(s): O09.93 - Supervision of high risk , unspecified, third trimester Comment: PRR , ISIDRA 03/04/25, PC [place], Aleksander, Farzad (2) : Status: Acute Qualifiers: Weeks of gestation: 31 weeks Qualified Code(s): Z3A.31 - 31 weeks gestation of Comment: declined NIPT & Carrier testing, nl 3 HR GTT, nl anatomy (3) Anxiety: Status: Acute Comment: zoloft stopped. Continue counseling 3 X a week. "feels much better off med" (4) History of gestational diabetes mellitus (GDM) in prior , currently: Status: Acute (5) Obesity affecting : Status: Acute Qualifiers: Obesity type affecting : unspecified obesity Trimester: secondtrimester Qualified Code(s): O99.212 - Obesity complicating , second trimester Comment: HGBA1C, BMI 33 (6) Genital herpes affecting : Status: Acute Qualifiers: Trimester: third trimester Qualified Code(s): O98.313 - Other infections with a predominantly sexual mode of transmission complicating , third trimester; A60.09 - Herpesviral infection of other urogenital tract Comment: valtrex at 34-36 weeks (7) AMA (advanced maternal age) multigravida 35+: Status: Acute Qualifiers: Trimester: third trimester Qualified Code(s): O09.523 - Supervision of elderly multigravida, third trimester Comment: discussed genetic testing. Patient declines. (8) UTI (urinary tract infection) during : Status: Acute Qualifiers: Trimester: second trimester Qualified Code(s): O23.42 - Unspecified infection of urinary tract in , second trimester (9) Insulin resistance complicating : Status: Acute Comment: on metformin; Dr Hall manages. Growth US 32 and 36 wk. Twice wkly NST at 32 wk. Del at 39 wk (10) Gestational diabetes: Status: Acute Qualifiers: Gestational diabetes mellitus control: oral hypoglycemic-controlled Trimester: second trimester Qualified Code(s): O24.415 - Gestational diabetes mellitus in , controlled by oral hypoglycemic drugs (11) Uterine size date discrepancy : Status: Acute Comment: growth US ordered Orders: Orders POC Urinalysis 2 Dip (Clinic) Today Tdap Immunization Today Z23 - Encounter for immunization Plan problem list reviewed and updated for most current plan of care and appropriate orders placed. Relevant counseling for the gestational age appropriate providedand ACOG education checklist updated. Continue routine care and followup. 01/06/25918 <Electronically signed by Shannon godinez NP HEEL SEAT FILLER-C> Date _ Shannon Osuna NP HEEL SEAT FILLER-C Cosigner Signature: Date (if applicable) CC: ~ [facility] Work Phone: Progress note Author Sarah Sharma [facility] Note Date/Time January 11, 2025 9:44am [facility] [address], [address] [place] [address] OFFICE VISIT Date of Service: 01/11/25 MR#: [id number] Acct: [id number] Name: BRITTANY ROCA Rep #: [id number] : 1985 Provider: Dr. Denise Harris, Age/Sex: 39/F [place] [facility] [place] Status: Signed Intake Vital Signs 01/06/25 08:44 01/11/25 09:01 01/11/25 09:01 Height 5 ft 10 in 5 ft 10 in 5 ft 10 in Weight: 243 lb 5 oz 247 lb 2 oz BMI 34.9 35.4 BP 105/65 108/67 Intake Visit Reasons: 33wk NST ONLY Drying Oven Tender Required: No Is patient in pain?: No Allergies avocado (avacado) Allergy (Intermediate, Verified 01/11/25 09:00) Swelling of tongue Medications ?Medication ?Instructions ?Recorded ?Confirmed ?Type mv-mn 110-FA 180 mcg-om3 35 mg-dha tab PO DAILY 01/11/25 History 25 mg-epa 5 mg-fish oil chew tablet flash glucose scanning reader #1 ea 08/31/24 01/11/25 Rx (FreeStyle Todd 2 [place]) flash glucose sensor (FreeStyle #1 ea 08/31/24 5 Rx Todd 2 Sensor kit) sertraline 100 mg tablet 100 mg PO QDAY #30 tabs 12/1301/11/25 Rx metformin 500 mg tablet 500 mg PO .COMPLEX #60 tabs 01/03/25 01/11/25 Rx Last Menstrual Period: 05/28/24 Zika: Zika virus screening: Negative : No PFSH PFSH Medical History Varicose veins of both lower extremities Seasonal allergies Normal vaginal delivery Superficial varicosities Depression Gestational diabetes PCOS (polycystic ovarian syndrome) Genital herpes affecting Surgical History History of tonsillectomy Family History Aunt Breast cancer, Onset Age: 40 Maternal- unknown if genetic testing was done. 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 occupational exposures/hazards: No pets and animals: Yes pets and animals: dog(s) history of recent travel: Yes (- June) out of state: Yes out of country: No sexually active: Yes Smoking Status: Never smoker second hand exposure: No alcohol intake: current alcohol intake frequency: holidays/special occasions only details: not while substance use type: does not use well-balanced diet: daily or most days caffeine: No eating out: 1-3 times/week during the past year weight has: increased > 10 lbs what type of physical activity do you participate in: other details: crossfit frequency: 1-2 times per week duration: 45-60 minutes/day amanda/latter-day: Scientologist seatbelt use: always do you feel safe at home: Yes additional social history: - Farzad History 3 Elective abortions Hx Para 2 Spontaneous abortions Hx # Term Pregnancies Ectopic pregnancies Hx # Pregnancies Multiple births # of living children 2 Past Pregnancies Del. Date Name GA/Weeks Outcome Route Bth Weight Infant Gen Labor Lgth Anesthesia Del Locatn Provider FOB 08/26/18 [place] 40 live - full term 9lbs Female 16 hours none [facility] EB Farzad 10/24/20 Aleksander 39 live - full term 8#10oz Male epi dural [facility] Dr. Ajith Panda Delivery Date: 08/26/18 Last Updated by: Pauline Tay 3rd degree laceration; NICU for possible NEC- she did not have HPI 33wk NST ONLY Details: BRITTANY ROCA is a 39 year old who presents for routine OB visit. OB Visit ISIDRA Calculator Estimated Delivery Date Method Current WG Current Estimate 03/04/25 LMP (Certain) 32w 4d Other Estimates 03/10/25 Ultrasound #1 31w 5d 03/04/25 Ultrasound #2 32w 4d Initial Weight: Not Recorded Date -?-?-?-?-?-?-?-?-?-?-?-?- EGA Weight BP Urine Prot -?-?-?-?-?-?-?-?-?-?-?-?- Glucose FHR FuHt Pres Dilation -?-?-?-?-?-?-?-?-?-?-?-?- Effaced St Visit Note 07/28/24 -?-?-?-?-?-?-?-?-?-?-?-?- 8w 5d 233 lb 2 oz 129/79 -?-?-?-?-?-?-?-?-?-?-?--?- 170 -?-?-?-?-?-?-?-?-?-?-?-?- SM- CRL 1.4 not cons with LMP 08/13/24 -?-?-?-?-?-?-?-?-?-?-?-?- 11w 0d Negative -?-?-?-?-?-?-?-?-?-?-?-?- Negative -?-?-?-?-?-?-?-?-?-?-?-?- nurse visit for UTI sx. culture sent and rx for atb sent due to sx. 08/30/24 -?-?-?-?-?-?-?--?-?-?-?-?- 13w 3d 234 lb 6 oz 115/73 Nega tive -?-?-?-?-?-?-?-?-?-?-?-?- Negative 155 -?-?-?-?-?-?-?-?-?-?-?-?- JV- no lof, vagi nal bleeding, or cramping. due date cleared up. Needs clean catch test of cure and new ob labs 09/27/24 -?-?-?-?-?-?-?-?-?-?-?-?- 17w 3d 236 lb 6 oz 116/75 -?-?-?-?-?-?-?-?-?-?-?--?- 155 -?-?-?-?-?-?-?-?-?-?-?-?- KW- US scheduled with [facility]. no vb/cramping. +flutters. On metformin 500mg for Blood sugars. Reports fasting BS under 95. Encouraged to continue checking BS and follow up with DR Kim. doing well on ZOloft. KW- US scheduled with [facility]. n o vb/cramping. +flutters. On metformin 500mg for Blood sugars. Reports fasting BS under 95. Encouraged to continue checking BS- has not been consistent- and follow up with DR Kim. doing well on ZOloft. 10/25/24 -?-?-?-?-?-?-?-?-?-?-?-?- 21w 3d 236 lb 2 oz 122/70 Nega tive -?-?-?-?-?-?-?-?-?-?-?-?- Negative 142 -?-?-?-?-?-?-?-?-?-?-?-?- MH-No VB. Good F M. Insulin resistant/on metformin and seeing Dr Hall -No VB. Good FM. Insulin r esistant/on metformin and seeing Dr Hall. 11/25/24 -?-?-?-?-?-?-?-?-?-?-?-?- 25w 6d 236 lb 9 oz 97/64 Nega tive -?-?-?-?-?-?-?-?-?-?-?-?- Negative 140 26 -?-?-?-?-?-?-?-?-?-?-?-?- - no vb lof go od fm n oregular ctx 12/22/24 -?-?-?-?-?-?-?-?-?-?-?-?- 29w 5d 241 lb 8 oz 113/79 Nega tive -?-?-?-?-?-?-?-?-?-?-?-?- Negative 150 32 -?-?-?-?-?-?-?-?-?-?-?-?- - no vb/lof/ct x. good fm. Rafael following blood sugars. 1000mg of metformin nightly. growth US ordered for S>D 12/28/24 -?-?-?-?-?-?-?-?-?-?-?-?- 30w 4d 241 lb 6 oz 102/66 Nega tive -?-?-?-?-?-?-?-?-?-?-?-?- Negative 153 33 -?-?-?-?-?-?-?-?-?-?-?-?- MH-No VB,LOF, CT X. Good FM. Feeling more anxious, not sure zoloft working. Reassured concerning risks to . Discussed changing to buspar or increasing dosage. She prefers to increase dosage. Is seeing counselor 3 X month 01/06/25 -?-?-?-?-?-?-?-?-?-?-?-?- 31w 6d 243 lb 5 oz 105/65 Nega tive -?--?-?-?-?-?-?-?-?-?-?-?- Negative 157 34 -?-?-?-?-?-?-?-?-?-?-?-?- MH-No VB, LOF. G ood FM. Stopped zoloft completely and feels much better. Glucose levels followed per endo and at nl ranges. NSTs2 X wk start next week and has growth US next week 01/11/25 -?-?-?-?-?-?-?-?-?-?-?-?- 32w 4d 247 lb 2 oz 108/67 Nega tive -?-?-?-?-?-?--?-?-?-?-?-?- Negative 150 -?-?-?-?-?-?-?-?-?-?-?-?- JV- nst only tod ay. reactive. states metfomin is helping with fasting levels. followed by Dr. Hall. She has a growth scan now. ACOG First Trimester First Trimester: Desire for , Alcohol, Tobacco Cessation, Illicit/Recreational Drug/Substance Use, Intimate Partner Violence, Barriers to care, Unstable Housing, Communication Barriers, Environmental/Work Hazards, Anticipated Course of Care, Toxoplasmosis Precations, Use of Any medications, Sexual activity, Dental Care, Sauna/Hot tub use, Seat Belt use, Childbirth classes/Hospital facilities, Travel, Indications for Ultrasound and Screening for Aneuploidy; Discussed Exercise and Discussed Second Trimester Second Trimester: Signs and Symptoms of Labor, Selecting a care provider, Reproductive Life Planning & Contreception, Care Planning, Tobacco Cessation, Depression/Anxiety and Intimate Partner Violence Third Trimester Third Trimester: Pain Management Plans, Labor support person(s), Immediate Larc, Movement Monitoring and Infant Feeding No ; Discussed Trial of Labor after Counseling and Discussed Circumcision preference ROS Const Denies fever(s) GI Reports as per HPI and Denies abdominal pain Reports as per HPI, Denies abnormal vaginal bleeding, Denies dysuria and Denies vaginal discharge Exam Const General: healthy appearing, comfortable and no acute distress GI Inspection: normal to inspection Palpation: soft and nontender Office Procedures Non-stress Test Non-Stress Test Indications for Monitoring: Yes diabetes Heart Rate Baseline: 150 Heart Rate Variability: moderate Movement: Present Heart Rate Accelerations: Present Decelerations: Absent Contractions: Absent Impression: Yes Reactive Non-Stress Test Results POC Urinalysis 2 Dip (Clinic) Office Urine Glucose Negative Last Edit by Isabelle Blancas on 01/11/25 09: 17 Office Urine Protein Negative Last Edit by Isabelle Blancas on 01/11/25 09: 17 Coding Level of Care Code Off vis,est,level 3 Diagnoses Uterine size date discrepancy O26.849 Gestational diabetes mellitus (GDM) in second trimester controlled on oral hypoglycemic drug O24.415 Gestational diabetes mellitus control: oral hypoglycemic-controlled Trimester: second trimester Insulin resistance complicating O26.899; E88.819 Urinary tract infection in mother during second trimester of O23.42 Trimester: second trimester Multigravida of advanced maternal age in third trimester O09.523 Trimester: third trimester Genital herpes affecting in third trimester O98.313; A60.09 Trimester: third trimester Obesity affecting in second trimester, unspecified obesity type O99.212 Obesity type affecting : unspecified obesity Trimester: second trimester History of gestational diabetes mellitus (GDM) in prior , currently O09.299; Z86.32 Anxiety F41.9 Supervision of high risk in third trimester O09.93 Trimester: third trimester 32 weeks gestation of Z3A.32 Weeks of gestation: 32 weeks CPT Codes Non-Stress Test (93881) Assessment and Plan Assessment and Plan (1) Uterine size date discrepancy : Status: Acute Comment: growth US ordered (2) Gestational diabetes: Status: Acute Qualifiers: Gestational diabetes mellitus control: oral hypoglycemic-controlled Trimester: second trimester Qualified Code(s): O24.415 - Gestational diabetes mellitus in , controlled by oral hypoglycemic drugs (3) Insulin resistance complicating : Status: Acute Comment: on metformin; Dr Hall manages. Growth US 32 and 36 wk. Twice wkly NST at 32 wk. Del at 39 wk (4) UTI (urinary tract infection) during : Status: Acute Qualifiers: Trimester: second trimester Qualified Code(s): O23.42 - Unspecified infection of urinary tract in , second trimester (5) AMA (advanced maternal age) multigravida 35+: Status: Acute Qualifiers: Trimester: third trimester Qualified Code(s): O09.523 - Supervision of elderly multigravida, third trimester Comment: discussed genetic testing. Patient declines. (6) Genital herpes affecting : Status: Acute Qualifiers: Trimester: third trimester Qualified Code(s): O98.313 - Other infections with a predominantly sexual mode of transmission complicating , third trimester; A60.09 - Herpesviral infection of other urogenital tract Comment: valtrex at 34-36 weeks (7) Obesity affecting : Status: Acute Qualifiers: Obesity type affecting : unspecified obesity Trimester: secondtrimester Qualified Code(s): O99.212 - Obesity complicating , second trimester Comment: HGBA1C, BMI 33 (8) History of gestational diabetes mellitus (GDM) in prior , currently: Status: Acute (9) Anxiety: Status: Acute Comment: zoloft stopped. Continue counseling 3 X a week. "feels much better off med" (10) Supervision of high-risk : Status: Acute Qualifiers: Trimester: third trimester Qualified Code(s): O09.93 - Supervision of high risk , unspecified, third trimester Comment: PRR , ISIDRA 03/04/25, PC Aleksander Rodriguez, Farzad (11) : Status: Acute Qualifiers: Weeks of gestation: 32 weeks Qualified Code(s): Z3A.32 - 32 weeks gestation of Comment: declined NIPT & Carrier testing, nl 3 HR GTT, nl anatomy Orders: Orders POC Urinalysis 2 Dip (Clinic) Today OB NST Today E88.819 - Insulin resistance, unspecified, O26.899 - Other specified related conditions, unspecified trimester OB Biophysical Prof W/O NST Today E88.819 - Insulin resistance, unspecified, O26.899 - Other specified related conditions, unspecified trimester 01/11/25 0945 <Electronically signed by Sarah Vieira DO> Date _ Sarah Harris DO Cosigner Signature: Date (if applicable) CC: ~ [facility] Work Phone: Progress note Author Alycia Torres [facility] Note Date/Time January 14, 2025 8: 56am [facility] [address] [place] [address], [address] [place] [address] OFFICE VISIT Date of Service: 01/14/25 MR#: [id number] Acct: [id number] Name: BRITTANY ROCA Rep #: [id number] : 1985 Provider: RALPH Torres Age/Sex: 39/F Location: [facility] Status: Signed Intake Vital Signs 01/06/25 08:44 01/11/25 09:01 01/14/25 08:08 Height 5 ft 10 in 5 ft 10 in 5 ft 10 in Weight: 247 lb 3 oz BMI 35.4 BP 116/71 Intake Visit Reasons: 33wk ob/nst Drying Oven Tender Required: No Is patient in pain?: No Allergies avocado (avacado) Allergy (Intermediate, Verified 01/14/25 08:13) Swelling of tongue Medications ?Medication ?Instructions ?Recorded ?Confirmed ?Type mv-mn 110-FA 180 mcg-om3 35 mg-dha tab PO DAILY 01/14/25 History 25 mg-epa 5 mg-fish oil chew tablet flash glucose scanning reader #1 ea 08/31/24 01/14/25 Rx (FreeStyle Todd 2 [place]) flash glucose sensor (FreeStyle #1 ea 08/31/24 5 Rx Todd 2 Sensor kit) metformin 500 mg tablet 500 mg PO .COMPLEX #60 tabs 01/03/25 01/14/25 Rx Last Menstrual Period: 05/28/24 Zika: Zika virus screening: Negative : No Have you fallen in the past year?: No PFSH PFSH Medical History Varicose veins of both lower extremities Seasonal allergies Normal vaginal delivery Superficial varicosities Depression Gestational diabetes PCOS (polycystic ovarian syndrome) Genital herpes affecting Surgical History History of tonsillectomy Family History Aunt Breast cancer, Onset Age: 40 Maternal- unknown if genetic testing was done. 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 occupational exposures/hazards: No pets and animals: Yes pets and animals: dog(s) history of recent travel: Yes (- June) out of state: Yes out of country: No sexually active: Yes Smoking Status: Never smoker second hand exposure: No alcohol intake: current alcohol intake frequency: holidays/special occasions only details: not while substance use type: does not use well-balanced diet: daily or most days caffeine: No eating out: 1-3 times/week during the past year weight has: increased > 10 lbs what type of physical activity do you participate in: other details: crossfit frequency: 1-2 times per week duration: 45-60 minutes/day amanda/latter-day: Scientologist seatbelt use: always do you feel safe at home: Yes additional social history: - Farzad History 3 Elective abortions Hx Para 2 Spontaneous abortions Hx # Term Pregnancies Ectopic pregnancies Hx # Pregnancies Multiple births # of living children 2 Past Pregnancies Del. Date Name GA/Weeks Outcome Route Bth Weight Gen Labor Lgth Anesthesia Del Locatn Provider FONieves 08/26/18 Jennifer 40 live - full term 9lbs Female 16 hours none [facility] ZACH Panda 10/24/20 Aleksander 39 live - full term 8#10oz Male epi dural [facility] Dr. Rainer Panda Delivery Date: 08/26/18 Last Updated by: Pauline Tay 3rd degree laceration; NICU for possible NEC- she did not have HPI 33wk ob/nst Details: BRITTANY ROCA is a 39 year old who presents for routine OB visit. OB Visit ISIDRA Calculator Estimated Delivery Date Method Current WG Current Estimate 03/04/25 LMP (Certain) 33w 0d Other Estimates 03/10/25 Ultrasound #1 32w 1d 03/04/25 Ultrasound #2 33w 0d Initial Weight: Not Recorded Date -?-?-?-?-?-?-?-?-?-?-?-?- EGA Weight BP Urine Prot -?-?-?-?-?-?-?-?-?-?-?-?- Glucose FHR FuHt Pres Dilation -?-?-?-?-?-?-?-?-?-?-?-?- Effaced St Visit Note 07/28/24 -?-?-?-?-?-?-?-?-?-?-?-?- 8w 5d 233 lb 2 oz 129/79 -?-?-?-?-?-?-?-?-?-?-?-?- 170 -?-?-?-?-?-?-?-?-?-?-?-?- SM- CRL 1.4 not cons with LMP 08/13/24 -?-?-?-?-?-?-?-?-?-?-?-?- 11w 0d Negative -?-?-?-?-?-?-?-?-?-?-?-?- Negative -?-?--?-?-?-?-?-?-?-?-?-?- nurse visit for UTI sx. culture sent and rx for atb sent due to sx. 08/30/24 -?-?-?-?-?-?-?-?-?-?-?-?- 13w 3d 234 lb 6 oz 115/73 Nega tive -?-?-?-?-?-?-?-?-?-?-?-?- Negative 155 -?-?-?-?-?-?-?-?-?-?-?-?- JV- no lof, vagi nal bleeding, or cramping. due date cleared up. Needs clean catch test of cure and new ob labs 09/27/24 -?-?-?-?-?-?-?-?-?-?-?-?- 17w 3d 236 lb 6 oz 116/75 -?-?-?-?-?-?-?-?-?-?-?-?- 155 -?-?-?-?-?-?-?-?-?-?-?-?- KW- US scheduled with [facility]. no vb/cramping. +flutters. On metformin 500mg for Blood sugars. Reports fasting BS under 95. Encouraged to continue checking BS and follow up with DR Kim. doing well on ZOloft. KW- US scheduled with [facility]. n o vb/cramping. +flutters. On metformin 500mg for Blood sugars. Reports fasting BS under 95. Encouraged to continue checking BS- has not been consistent- and follow up with DR Kim. doing well on ZOloft. 10/25/24 -?-?-?-?-?-?-?-?-?-?-?-?- 21w 3d 236 lb 2 oz 122/70 Nega tive -?-?-?-?-?-?-?-?-?-?-?-?- Negative 142 -?-?-?-?-?-?-?-?-?-?-?-?- -No VB. Good F M. Insulin resistant/on metformin and seeing Dr Hall -No VB. Good FM. Insulin r esistant/on metformin and seeing Dr Hall. 11/25/24 -?-?-?-?-?-?-?-?-?-?-?-?- 25w 6d 236 lb 9 oz 97/64 Nega tive -?-?-?-?-?-?-?-?-?-?-?-?- Negative 140 26 -?-?-?-?-?-?-?-?-?-?-?-?- SM- no vb lof go od fm n oregular ctx 12/22/24 -?-?-?-?-?-?-?-?-?-?-?-?- 29w 5d 241 lb 8 oz 113/79 Nega tive -?-?-?-?-?-?-?-?-?-?-?-?- Negative 150 32 -?-?-?-?-?-?-?-?-?-?-?-?- KW- no vb/lof/ct x. good fm. Rafael following blood sugars. 1000mg of metformin nightly. growth US ordered for S>D 12/28/24 -?-?-?-?-?-?-?-?-?-?-?-?- 30w 4d 241 lb 6 oz 102/66 Nega tive -?-?-?-?-?-?-?-?-?-?-?-?- Negative 153 33 -?-?-?-?-?-?-?-?-?-?-?-?- MH-No VB,LOF, CT X. Good FM. Feeling more anxious, not sure zoloft working. Reassured concerning risks to . Discussed changing to buspar or increasing dosage. She prefers to increase dosage. Is seeing counselor 3 X month 01/06/25 -?-?-?-?-?-?-?-?-?-?-?-?- 31w 6d 243 lb 5 oz 105/65 Nega tive -?-?-?-?-?-?-?-?-?-?-?-?- Negative 157 34 -?-?-?-?-?-?-?-?-?-?-?-?- MH-No VB, LOF. G ood FM. Stopped zoloft completely and feels much better. Glucose levels followed per endo and at nl ranges. NSTs2 X wk start next week and has growth US next week 01/11/25 -?-?-?-?-?-?-?-?-?-?-?-?- 32w 4d 247 lb 2 oz 108/67 Nega tive -?-?-?-?-?-?-?-?-?-?-?-?- Negative 150 -?-?-?-?-?--?-?-?-?-?-?-?- JV- nst only tod ay. reactive. states metfomin is helping with fasting levels. followed by Dr. Hall. She has a growth scan now. 01/14/25 -?-?-?-?-?-?-?-?-?-?-?-?- 33w 0d 247 lb 3 oz 116/71 Nega tive -?-?-?-?-?-?-?-?-?-?-?-?- Negative 135 -?-?-?-?-?-?-?-?-?-?-?-?- KW- no vb/lof/ct x good fm. reactive NST. MIL in longterm-noticing some spikes in blood sugars with stress. still following with . ACOG First Trimester First Trimester: Desire for , Alcohol, Tobacco Cessation, Illicit/Recreational Drug/Substance Use, Intimate Partner Violence, Barriers to care, Unstable Housing, Communication Barriers, Environmental/Work Hazards, Anticipated Course of Care, Toxoplasmosis Precations, Use of Any medications, Sexual activity, Dental Care, Sauna/Hot tub use, Seat Belt use, Childbirth classes/Hospital facilities, Travel, Indications for Ultrasound and Screening for Aneuploidy; Discussed Exercise and Discussed Second Trimester Second Trimester: Signs and Symptoms of Labor, Selecting a care provider, Reproductive Life Planning & Contreception, Care Planning, Tobacco Cessation, Depression/Anxiety and Intimate Partner Violence Third Trimester Third Trimester: Pain Management Plans, Labor support person(s), Immediate Larc, Movement Monitoring and Infant Feeding No ; Discussed Trial of Labor after Counseling and Discussed Circumcision preference ROS Const Reports system reviewed and no additional complaints, except as documented Eyes Reports system reviewed and no additional complaints, except as documented ENT Reports system reviewed and no additional complaints, except as documented Card Reports system reviewed and no additional complaints, except as documented Resp Reports system reviewed and no additional complaints, except as documented GI Reports system reviewed and no additional complaints, except as documented, Denies nausea and Denies vomiting Reports system reviewed and no additional complaints, except as documented Musc Reports system reviewed and no additional complaints, except as documented Skin/Breast Reports system reviewed and no additional complaints, except as documented Neuro Yes system reviewed and no additional complaints, except as documented Psych Reports system reviewed and no additional complaints, except as documented Endo Reports system reviewed and no additional complaints, except as documented Amol/Lymph Reports system reviewed and no additional complaints, except as documented Aller/Immun Reports system reviewed and no additional complaints, except as documented Exam Const General: cooperative, healthy appearing and no acute distress Orientation: alert, awake and oriented x3 Neck Neck: normal visual inspection and full ROM Resp Effort & Inspection: normal respiratory effort, able to speak in complete sentences and symmetric chest movement GI Inspection: normal to inspection Palpation: soft and other Other: gravid Skin General: no rashes or lesions noted Neuro General: patient alert, patient awake and patient oriented x3 Cognition: normal cognition Speech: speech normal Gait: normal gait Motor: muscle tone normal throughout Extrem General: normal to inspection and full ROM Psych Appearance: grossly normal Mental Status: mental status grossly normal Mood: congruent mood Affect: normal affect Speech and Movement: speech and movement normal Attitude: cooperative Thought Process: normal Thought Content: normal Judgment: judgment good Office Procedures Non-stress Test Non-Stress Test Indications for Monitoring: Yes diabetes Heart Rate Baseline: 135 Heart Rate Variability: moderate Movement: Present Heart Rate Accelerations: Present Decelerations: Absent Contractions: Absent Impression: Yes Reactive Non-Stress Test Results POC Urinalysis 2 Dip (Clinic) Office Urine Glucose Negative Last Edit by Carolyn Vázquez on 01/14/25 08:18 Office Urine Protein Negative Last Edit by Carolyn Vázquez on 01/14/25 08:18 Coding Level of Care Code Off vis,est,level 3 Diagnoses Uterine size date discrepancy O26.849 Gestational diabetes mellitus (GDM) in second trimester controlled on oral hypoglycemic drug O24.415 Gestational diabetes mellitus control: oral hypoglycemic-controlled Trimester: second trimester Insulin resistance complicating O26.899; E88.819 Urinary tract infection in mother during second trimester of O23.42 Trimester: second trimester Multigravida of advanced maternal age in third trimester O09.523 Trimester: third trimester Genital herpes affecting in third trimester O98.313; A60.09 Trimester: third trimester Obesity affecting in second trimester, unspecified obesity type O99.212 Obesity type affecting : unspecified obesity Trimester: second trimester History of gestational diabetes mellitus (GDM) in prior , currently O09.299; Z86.32 Anxiety F41.9 Supervision of high risk in third trimester O09.93 Trimester: third trimester 33 weeks gestation of Z3A.33 Weeks of gestation: 33 weeks CPT Codes Non-Stress Test (44796) Assessment and Plan Assessment and Plan (1) Uterine size date discrepancy : Status: Acute Comment: growth US ordered:32 wk:EFW 68%, AC 98%. 36 w scheduled (2) Gestational diabetes: Status: Acute Qualifiers: Gestational diabetes mellitus control: oral hypoglycemic-controlled Trimester: second trimester Qualified Code(s): O24.415 - Gestational diabetes mellitus in , controlled by oral hypoglycemic drugs (3) Insulin resistance complicating : Status: Acute Comment: on metformin; Dr Hall manages. Growth US 32 and 36 wk. Twice wkly NST at 32 wk. Del at 39 wk (4) UTI (urinary tract infection) during : Status: Acute Qualifiers: Trimester: second trimester Qualified Code(s): O23.42 - Unspecified infection of urinary tract in , second trimester (5) AMA (advanced maternal age) multigravida 35+: Status: Acute Qualifiers: Trimester: third trimester Qualified Code(s): O09.523 - Supervision of elderly multigravida, third trimester Comment: discussed genetic testing. Patient declines. (6) Genital herpes affecting : Status: Acute Qualifiers: Trimester: third trimester Qualified Code(s): O98.313 - Other infections with a predominantly sexual mode of transmission complicating , third trimester; A60.09 - Herpesviral infection of other urogenital tract Comment: valtrex at 34-36 weeks (7) Obesity affecting : Status: Acute Qualifiers: Obesity type affecting : unspecified obesity Trimester: secondtrimester Qualified Code(s): O99.212 - Obesity complicating , second trimester Comment: HGBA1C, BMI 33 (8) History of gestational diabetes mellitus (GDM) in prior , currently: Status: Acute (9) Anxiety: Status: Acute Comment: zoloft stopped. Continue counseling 3 X a week. "feels much better off med" (10) Supervision of high-risk : Status: Acute Qualifiers: Trimester: third trimester Qualified Code(s): O09.93 - Supervision of high risk , unspecified, third trimester Comment: PRR , ISIDRA 03/04/25, PC eJnnifer, Aleksander, Farzad (11) : Status: Acute Qualifiers: Weeks of gestation: 33 weeks Qualified Code(s): Z3A.33 - 33 weeks gestation of Comment: declined NIPT & Carrier testing, nl 3 HR GTT, nl anatomy Orders: Orders OB NST Today E88.819 - Insulin resistance, unspecified, O26.899 - Other specified related conditions, unspecified trimester POC Urinalysis 2 Dip (Clinic) Today Plan Details Additional Comments: ACOG trimester education reviewed and updated. see problem list details for updated plan management information and see below for orders placed at this visit. GA appropriate handout given. Clinical Quality Measures Falls Risk Screening/Assistive Devices Have you fallen in the past year?: No 01/14/25 0856 <Electronically signed by Alycia godinez CNM> Date _ Alycia Torres CNM Cosigner Signature: Date (if applicable) CC: ~ [facility] Work Phone: Progress note Author Shannon Osuna [facility] Note Date/Time January 17, 2025 10 :[address] [place] [address], [address] [place] [address] OFFICE VISIT Date of Service: 01/17/25 MR#: [id number] Acct: [id number] Name: CHANELLEBRITTANY SHAHLA Rep #: [id number] : 1985 Provider: CARROLL Osuna Age/Sex: 39/F [place] [facility] [place] Status: Signed with Addenda ADDENDUM by Ro Zuniga on 01/17/25 at 1055 Office Procedure Documentation entered by Ro Zuniga 01/17/25 10:55: Immunizations Flucelvax [id number] (PF) 45 mcg (15 mcg x 3)/0.5 mL IM syringe Performing Provider: Shannon Osuna [employer] [facility] Performing Location: [facility] Administered by: Ro Zuniga on 01/17/25 10:54 Dose Route Admin Location Dispensed Lot Number Expiration Date Pack age NDC NDC Audiologist 0.5 mL IM Left Deltoid 0.5 mL [id number] 08/21/25 87803-740-54 [id number] Pain[employer]. VIS Given Date VIS Provided VIS Publication Date 11/17/20 Single Vaccine 24 Eligibility Eligibility Date Funding Source Not Applicable Date _ cc: ~* Signed Intake Vital Signs 11/25/24 09:54 01/06/25 08:44 01/14/25 08:08 01/17/25 09:59 Height 5 ft 10 in 5 ft 10 in 5 ft 10 in 5 ft 10 in Weight: 244 lb 9 oz BMI 35.1 BP 106/68 Intake Visit Reasons: 34wk ob/nst Chief Complaint: 34 Week OB/NST Drying Oven Tender Required: No Is patient in pain?: No Allergies avocado (avacado) Allergy (Intermediate, Verified 01/17/25 09:59) Swelling of tongue Medications ?Medication ?Instructions ?Recorded ?Confirmed ?Type mv-mn 110-FA 180 mcg-om3 35 mg-dha tab PO DAILY 01/17/25 History 25 mg-epa 5 mg-fish oil chew tablet flash glucose scanning reader #1 ea 08/31/24 01/17/25 Rx (FreeStyle Todd 2 [place]) flash glucose sensor (FreeStyle #1 ea 08/31/24 5 Rx Todd 2 Sensor kit) metformin 500 mg tablet 500 mg PO .COMPLEX #60 tabs 01/03/25 01/17/25 Rx Last Menstrual Period: 05/28/24 Zika: Zika virus screening: Negative : No PFSH PFSH Medical History Varicose veins of both lower extremities Seasonal allergies Normal vaginal delivery Superficial varicosities Depression Gestational diabetes PCOS (polycystic ovarian syndrome) Genital herpes affecting Surgical History History of tonsillectomy Family History Aunt Breast cancer, Onset Age: 40 Maternal- unknown if genetic testing was done. 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 occupational exposures/hazards: No pets and animals: Yes pets and animals: dog(s) history of recent travel: Yes (- June) out of state: Yes out of country: No sexually active: Yes Smoking Status: Never smoker second hand exposure: No alcohol intake: current alcohol intake frequency: holidays/special occasions only details: not while substance use type: does not use well-balanced diet: daily or most days caffeine: No eating out: 1-3 times/week during the past year weight has: increased > 10 lbs what type of physical activity do you participate in: other details: crossfit frequency: 1-2 times per week duration: 45-60 minutes/day amanda/latter-day: Scientologist seatbelt use: always do you feel safe at home: Yes additional social history: - Farzad History 3 Elective abortions Hx Para 2 Spontaneous abortions Hx # Term Pregnancies Ectopic pregnancies Hx # Pregnancies Multiple births # of living children 2 Past Pregnancies Del. Date Name GA/Weeks Outcome Route Bth Weight Gen Labor Lgth Anesthesia Del Locatn Provider FOB 08/26/18 Jennifer 40 live - full term 9lbs Female 16 hours none [facility] ZACH Panda 10/24/20 Aleksander 39 live - full term 8#10oz Male epi dural [facility] Dr. Rainer Panda Delivery Date: 08/26/18 Last Updated by: Pauline Tay 3rd degree laceration; NICU for possible NEC- she did not have HPI 34wk ob/nst Details: BRITTANY ROCA is a 39 year old who presents for routine OB visit. OB Visit ISIDRA Calculator Estimated Delivery Date Method Current WG Current Estimate 03/04/25 LMP (Certain) 33w 3d Other Estimates 03/10/25 Ultrasound #1 32w 4d 03/04/25 Ultrasound #2 33w 3d Initial Weight: Not Recorded Date -?-?-?-?-?-?-?-?-?-?-?-?- EGA Weight BP Urine Prot -?-?-?-?-?-?-?-?-?-?-?-?- Glucose FHR FuHt Pres Dilation -?-?-?-?-?-?-?-?-?-?-?-?- Effaced St Visit Note 07/28/24 -?-?-?-?-?-?-?-?-?-?-?-?- 8w 5d 233 lb 2 oz 129/79 -?-?-?-?-?-?-?-?-?-?-?-?- 170 -?-?-?-?-?-?-?-?-?-?-?-?- SM- CRL 1.4 not cons with LMP 08/13/24 -?-?-?-?-?-?-?-?-?-?-?-?- 11w 0d Negative -?-?-?-?-?-?-?-?-?-?-?-?- Negative -?--?-?-?-?-?-?-?-?-?-?-?- nurse visit for UTI sx. culture sent and rx for atb sent due to sx. 08/30/24 -?-?-?-?-?-?-?-?-?-?-?-?- 13w 3d 234 lb 6 oz 115/73 Nega tive -?-?-?-?-?-?-?-?-?-?-?-?- Negative 155 -?-?-?-?-?-?-?-?-?-?-?-?- JV- no lof, vagi nal bleeding, or cramping. due date cleared up. Needs clean catch test of cure and new ob labs 09/27/24 -?-?-?-?-?-?-?-?-?-?-?-?- 17w 3d 236 lb 6 oz 116/75 -?-?-?-?-?-?-?-?-?-?-?-?- 155 -?-?-?-?-?-?-?-?-?-?-?-?- KW- US scheduled with [facility]. no vb/cramping. +flutters. On metformin 500mg for Blood sugars. Reports fasting BS under 95. Encouraged to continue checking BS and follow up with DR Kim. doing well on ZOloft. KW- US scheduled with [facility]. n o vb/cramping. +flutters. On metformin 500mg for Blood sugars. Reports fasting BS under 95. Encouraged to continue checking BS- has not been consistent- and follow up with DR Kim. doing well on ZOloft. 10/25/24 -?-?-?-?-?-?-?-?-?-?-?-?- 21w 3d 236 lb 2 oz 122/70 Nega tive -?-?-?-?-?-?-?-?-?-?-?-?- Negative 142 -?-?-?-?-?-?-?-?-?-?-?-?- -No VB. Jaziel F M. Insulin resistant/on metformin and seeing Dr Hall MH-No VB. Jaziel MISHRA. Insulin r esistant/on metformin and seeing Dr Hall. 11/25/24 -?-?-?-?-?-?-?-?-?-?-?-?- 25w 6d 236 lb 9 oz 97/64 Nega tive -?-?-?-?-?-?-?-?-?-?-?-?- Negative 140 26 -?-?-?-?-?-?-?-?-?-?-?--?- SM- no vb lof go od fm n oregular ctx 12/22/24 -?-?-?-?-?-?-?-?-?-?-?-?- 29w 5d 241 lb 8 oz 113/79 Nega tive -?-?-?-?-?-?-?-?-?-?-?-?- Negative 150 32 -?-?-?-?-?-?-?-?-?-?-?-?- KW- no vb/lof/ct x. good fm. following blood sugars. 1000mg of metformin nightly. growth US ordered for S>D 12/28/24 -?-?-?-?-?-?-?-?-?-?-?-?- 30w 4d 241 lb 6 oz 102/66 Nega tive -?-?-?-?-?-?-?-?-?-?-?-?- Negative 153 33 -?-?-?-?-?-?-?-?-?-?-?-?- MH-No VB,LOF, CT X. Good FM. Feeling more anxious, not sure zoloft working. Reassured concerning risks to . Discussed changing to buspar or increasing dosage. She prefers to increase dosage. Is seeing counselor 3 X month 01/06/25 -?-?-?-?-?-?-?-?-?-?-?-?- 31w 6d 243 lb 5 oz 105/65 Nega tive -?-?-?-?-?-?-?-?-?-?-?-?- Negative 157 34 -?-?-?-?-?-?-?-?-?-?-?-?- MH-No VB, LOF. G ood FM. Stopped zoloft completely and feels much better. Glucose levels followed per endo and at nl ranges. NSTs2 X wk start next week and has growth US next week 01/11/25 -?-?-?-?-?-?-?-?-?-?-?-?- 32w 4d 247 lb 2 oz 108/67 Nega tive -?-?-?-?-?-?-?-?-?-?-?-?- Negative 150 -?-?-?-?--?-?-?-?-?-?-?-?- JV- nst only tod ay. reactive. states metfomin is helping with fasting levels. followed by Dr. Hall. She has a growth scan now. 01/14/25 -?-?-?-?-?-?-?-?-?-?-?-?- 33w 0d 247 lb 3 oz 116/71 Nega tive -?-?-?-?-?-?-?-?-?-?-?-?- Negative 135 -?-?-?-?-?-?-?-?-?-?-?-?- KW- no vb/lof/ct x good fm. reactive NST. MIL in longterm-noticing some spikes in blood sugars with stress. still following with Rafael. 01/17/25 -?-?-?-?-?-?-?-?-?-?-?-?- 33w 3d 244 lb 9 oz 106/68 Nega tive -?-?-?-?-?-?-?-?-?-?-?-?- Negative 140 34 -?-?-?-?-?-?-?-?-?-?-?-?- MH-No VB, LOF. G ood FM. Reactive NST. FLu vaccine given ACOG First Trimester First Trimester: Desire for , Alcohol, Tobacco Cessation, Illicit/Recreational Drug/Substance Use, Intimate Partner Violence, Barriers to care, Unstable Housing, Communication Barriers, Environmental/Work Hazards, Anticipated Course of Care, Toxoplasmosis Precations, Use of Any medications, Sexual activity, Dental Care, Sauna/Hot tub use, Seat Belt use, Childbirth classes/Hospital facilities, Travel, Indications for Ultrasound and Screening for Aneuploidy; Discussed Exercise and Discussed Second Trimester Second Trimester: Signs and Symptoms of Labor, Selecting a care provider, Reproductive Life Planning & Contreception, Care Planning, Tobacco Cessation, Depression/Anxiety and Intimate Partner Violence Third Trimester Third Trimester: Pain Management Plans, Labor support person(s), Immediate Larc, Movement Monitoring and Feeding No ; Discussed Trial of Labor after Counseling and Discussed Circumcision preference ROS Const Reports system reviewed and no additional complaints, except as documented GI Denies abdominal pain, Denies nausea and Denies vomiting Exam Const General: cooperative Nutritional Appearance: well nourished GI Palpation: soft, nontender and other (gravid) Office Procedures Non-stress Test Non-Stress Test Indications for Monitoring: Yes diabetes and Yes Advanced maternal age Heart Rate Baseline: 140 Heart Rate Variability: moderate Movement: Present Heart Rate Accelerations: Present Decelerations: Absent Contractions: Absent Impression: Yes Reactive Non-Stress Test Results POC Urinalysis 2 Dip (Clinic) Office Urine Glucose Negative Last Edit by Ro Zuniga on 01/17/25 10 :08 Office Urine Protein Negative Last Edit by Ro Zuniga on 01/17/25 10 :08 Coding Level of Care Code Off vis,est,level 3 Diagnoses Supervision of high risk in third trimester O09.93 Trimester: third trimester Insulin resistance complicating O26.899; E88.819 33 weeks gestation of Z3A.33 Weeks of gestation: 33 weeks Anxiety F41.9 History of gestational diabetes mellitus (GDM) in prior , currently O09.299; Z86.32 Obesity affecting in second trimester, unspecified obesity type O99.212 Obesity type affecting : unspecified obesity Trimester: second trimester Genital herpes affecting in third trimester O98.313; A60.09 Trimester: third trimester Multigravida of advanced maternal age in third trimester O09.523 Trimester: third trimester Urinary tract infection in mother during second trimester of O23.42 Trimester: second trimester Gestational diabetes mellitus (GDM) in second trimester controlled on oral hypoglycemic drug O24.415 Gestational diabetes mellitus control: oral hypoglycemic-controlled Trimester: second trimester Uterine size date discrepancy O26.849 CPT Codes Non-Stress Test (96633) Assessment and Plan Assessment and Plan (1) Supervision of high-risk : Status: Acute Qualifiers: Trimester: third trimester Qualified Code(s): O09.93 - Supervision of high risk , unspecified, third trimester Comment: PRR , ISIDRA 03/04/25, PC Aleksander Rodriguez, Farzad (2) Insulin resistance complicating : Status: Acute Comment: on metformin; Dr Hall manages. Growth US 32 and 36 wk. Twice wkly NST at 32 wk. Del at 39 wk (3) : Status: Acute Qualifiers: Weeks of gestation: 33 weeks Qualified Code(s): Z3A.33 - 33 weeks gestation of Comment: declined NIPT & Carrier testing, nl 3 HR GTT, nl anatomy (4) Anxiety: Status: Acute Comment: zoloft stopped. Continue counseling 3 X a week. "feels much better off med" (5) History of gestational diabetes mellitus (GDM) in prior , currently: Status: Acute (6) Obesity affecting : Status: Acute Qualifiers: Obesity type affecting : unspecified obesity Trimester: secondtrimester Qualified Code(s): O99.212 - Obesity complicating , second trimester Comment: HGBA1C, BMI 33 (7) Genital herpes affecting : Status: Acute Qualifiers: Trimester: third trimester Qualified Code(s): O98.313 - Other infections with a predominantly sexual mode of transmission complicating , third trimester; A60.09 - Herpesviral infection of other urogenital tract Comment: valtrex at 34-36 weeks (8) AMA (advanced maternal age) multigravida 35+: Status: Acute Qualifiers: Trimester: third trimester Qualified Code(s): O09.523 - Supervision of elderly multigravida, third trimester Comment: discussed genetic testing. Patient declines. (9) UTI (urinary tract infection) during : Status: Acute Qualifiers: Trimester: second trimester Qualified Code(s): O23.42 - Unspecified infection of urinary tract in , second trimester (10) Gestational diabetes: Status: Acute Qualifiers: Gestational diabetes mellitus control: oral hypoglycemic-controlled Trimester: second trimester Qualified Code(s): O24.415 - Gestational diabetes mellitus in , controlled by oral hypoglycemic drugs (11) Uterine size date discrepancy : Status: Acute Comment: growth US ordered:32 wk:EFW 68%, AC 98%. 36 w scheduled Orders: Orders OB NST Today E88.819 - Insulin resistance, unspecified, O26.899 - Other specified related conditions, unspecified trimester POC Urinalysis 2 Dip (Clinic) Today Influenza Immunization Today Z23 - Encounter for immunization Medications: New Flucelvax 3450-8902 (PF) (flu vac ts 2024(6 mo up)CD(PF)) 0.5 mL IM ONCE 0.5 mL 0RF NS Z23 - Encounter for immunization Plan problem list reviewed and updated for most current plan of care and appropriate orders placed. Relevant counseling for the gestational age appropriate providedand ACOG education checklist updated. Continue routine care and followup. 01/17/25 1047 <Electronically signed by Shannon godinez HEEL SEAT FILLER HEEL SEAT FILLER-C> Date _ Shannon Osuna HEEL SEAT FILLER HEEL SEAT FILLER-C Cosigner Signature: Date (if applicable) CC: ~ [facility] Work Phone: Progress note Author Alycia Torres [facility] Note Date/Time January 24, 2025 1 0:50am [facility] [address], [address] [place] [address] OFFICE VISIT Date of Service: 01/24/25 MR#: [id number] Acct: [id number] Name: BRITTANY ROCA Rep #: [id number] : 1985 Provider: RALPH Torres Age/Sex: 39/F [place] [facility] [place]: Signed Intake Vital Signs 01/06/25 08:44 01/17/25 09:59 01/20/25 14:02 01/24/25 10:21 Height 5 ft 10 in 5 ft 10 in 5 ft 10 in 5 ft 10 in Weight: 244 lb 9 oz 247 lb 7 oz 250 lb 7 oz BMI 35.1 35.4 35.9 BP 106/68 112/70 103/69 Intake Visit Reasons: 35wk ob/nst Chief Complaint: 35wk OB Drying Oven Tender Required: No Is patient in pain?: No Allergies avocado (avacado) Allergy (Intermediate, Verified 01/24/25 10:19) Swelling of tongue Medications ?Medication ?Instructions ?Recorded ?Confirmed ?Type mv-mn 110-FA 180 mcg-om3 35 mg-dha tab PO DAILY 01/24/25 History 25 mg-epa 5 mg-fish oil chew tablet flash glucose scanning reader #1 ea 08/31/24 01/24/25 Rx (FreeStyle Todd 2 [place]) flash glucose sensor (FreeStyle #1 ea 08/31/24 5 Rx Todd 2 Sensor kit) metformin 500 mg tablet 500 mg PO .COMPLEX #60 tabs 01/03/25 01/24/25 Rx valacyclovir 500 mg tablet 500 mg PO QDAY #30 tabs 11/0501/24/25 Rx Last Menstrual Period: 05/28/24 : No Have you fallen in the past year?: No PFSH PFSH Medical History Varicose veins of both lower extremities Seasonal allergies Normal vaginal delivery Superficial varicosities Depression Gestational diabetes PCOS (polycystic ovarian syndrome) Genital herpes affecting Surgical History History of tonsillectomy Family History Aunt Breast cancer, Onset Age: 40 Maternal- unknown if genetic testing was done. 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 occupational exposures/hazards: No pets and animals: Yes pets and animals: dog(s) history of recent travel: Yes (- June) out of state: Yes out of country: No sexually active: Yes Smoking Status: Never smoker second hand exposure: No alcohol intake: current alcohol intake frequency: holidays/special occasions only details: not while substance use type: does not use well-balanced diet: daily or most days caffeine: No eating out: 1-3 times/week during the past year weight has: increased > 10 lbs what type of physical activity do you participate in: other details: crossfit frequency: 1-2 times per week duration: 45-60 minutes/day amanda/latter-day: Scientologist seatbelt use: always do you feel safe at home: Yes additional social history: - Farzad History 3 Elective abortions Hx Para 2 Spontaneous abortions Hx # Term Pregnancies Ectopic pregnancies Hx # Pregnancies Multiple births # of living children 2 Past Pregnancies Del. Date Name GA/Weeks Outcome Route Bth Weight Gen Labor Lgth Anesthesia Del Locatn Provider KARAN 08/26/18 Jennifer 40 live - full term 9lbs Female 16 hours none [facility] ZACH Panda 10/24/20 Aleksander 39 live - full term 8#10oz Male epi dural [facility] Dr. Rainer Panda Delivery Date: 08/26/18 Last Updated by: Pauline Tay 3rd degree laceration; NICU for possible NEC- she did not have HPI 35wk ob/nst Details: BRITTANY ROCA is a 39 year old who presents for routine OB visit. OB Visit ISIDRA Calculator Estimated Delivery Date Method Current WG Current Estimate 03/04/25 LMP (Certain) 34w 3d Other Estimates 03/10/25 Ultrasound #1 33w 4d 03/04/25 Ultrasound #2 34w 3d Initial Weight: Not Recorded Date -?-?-?-?-?-?-?-?-?-?-?-?- EGA Weight BP Urine Prot -?-?-?-?-?-?-?-?-?-?-?-?- Glucose FHR FuHt Pres Dilation -?-?-?-?-?-?-?-?-?-?-?-?- Effaced St Visit Note 07/28/24 -?-?-?-?-?-?-?-?-?-?-?-?- 8w 5d 233 lb 2 oz 129/79 -?-?-?-?-?-?-?-?-?-?-?-?- 170 -?-?-?-?-?-?-?-?-?-?-?-?- SM- CRL 1.4 not cons with LMP 08/13/24 -?-?-?-?-?-?-?-?-?-?-?-?- 11w 0d Negative -?-?-?-?-?-?-?-?-?-?-?-?- Negative -?-?-?-?-?-?-?-?-?-?-?-?- nurse visit for UTI sx. culture sent and rx for atb sent due to sx. 08/30/24 -?-?-?-?-?-?-?-?-?-?-?-?- 13w 3d 234 lb 6 oz 115/73 Nega tive -?-?-?-?-?-?-?-?-?-?-?-?- Negative 155 -?-?-?-?-?-?-?-?-?-?-?-?- JV- no lof, vagi nal bleeding, or cramping. due date cleared up. Needs clean catch test of cure and new ob labs 09/27/24 -?-?-?-?-?-?-?-?-?-?-?-?- 17w 3d 236 lb 6 oz 116/75 -?-?-?-?-?-?-?-?-?-?-?-?- 155 -?-?-?-?-?-?-?-?-?-?-?-?- KW- US scheduled with [facility]. no vb/cramping. +flutters. On metformin 500mg for Blood sugars. Reports fasting BS under 95. Encouraged to continue checking BS and follow up with DR Kim. doing well on ZOloft. KW- US scheduled with [facility]. n o vb/cramping. +flutters. On metformin 500mg for Blood sugars. Reports fasting BS under 95. Encouraged to continue checking BS- has not been consistent- and follow up with DR Kim. doing well on ZOloft. 10/25/24 -?-?-?-?-?-?-?-?-?-?-?-?- 21w 3d 236 lb 2 oz 122/70 Nega tive -?-?-?-?-?-?-?-?-?-?-?-?- Negative 142 -?-?-?-?-?-?-?-?-?-?-?-?- -No VB. Good F M. Insulin resistant/on metformin and seeing Dr Hall -No VB. Good FM. Insulin r esistant/on metformin and seeing Dr Hall. 11/25/24 -?-?-?-?-?-?-?-?-?-?--?-?- 25w 6d 236 lb 9 oz 97/64 Nega tive -?-?-?-?-?-?-?-?-?-?-?-?- Negative 140 26 -?-?-?-?-?-?-?-?-?-?-?-?- SM- no vb lof go od fm n oregular ctx 12/22/24 -?-?-?-?-?-?-?-?-?-?-?-?- 29w 5d 241 lb 8 oz 113/79 Nega tive -?-?-?-?-?-?-?-?-?-?-?-?- Negative 150 32 -?-?-?-?-?-?-?-?-?--?-?-?- - no vb/lof/ct x. good fm. Rafael following blood sugars. 1000mg of metformin nightly. growth US ordered for S>D 12/28/24 -?-?-?-?-?-?-?-?-?-?-?-?- 30w 4d 241 lb 6 oz 102/66 Nega tive -?-?-?-?-?-?-?-?-?-?-?-?- Negative 153 33 -?-?-?-?-?-?-?-?-?-?-?-?- MH-No VB,LOF, CT X. Good FM. Feeling more anxious, not sure zoloft working. Reassured concerning risks to . Discussed changing to buspar or increasing dosage. She prefers to increase dosage. Is seeing counselor 3 X month 01/06/25 -?-?-?-?-?-?-?-?-?-?-?-?- 31w 6d 243 lb 5 oz 105/65 Nega tive -?-?-?-?-?-?-?-?-?-?-?-?- Negative 157 34 -?-?-?-?-?-?-?-?-?-?-?-?- MH-No VB, LOF. G ood FM. Stopped zoloft completely and feels much better. Glucose levels followed per endo and at nl ranges. NSTs2 X wk start next week and has growth US next week 01/11/25 -?--?-?-?-?-?-?-?-?-?-?-?- 32w 4d 247 lb 2 oz 108/67 Nega tive -?-?-?-?-?-?-?-?-?-?-?-?- Negative 150 -?-?-?-?-?-?-?-?-?-?-?-?- JV- nst only tod ay. reactive. states metfomin is helping with fasting levels. followed by Dr. Hall. She has a growth scan now. 01/14/25 -?-?-?-?-?-?-?-?-?-?-?-?- 33w 0d 247 lb 3 oz 116/71 Nega tive -?-?-?-?-?-?-?-?-?-?-?-?- Negative 135 -?-?-?-?-?-?-?-?-?-?-?-?- KW- no vb/lof/ct x good fm. reactive NST. MIL in longterm-noticing some spikes in blood sugars with stress. still following with . 01/17/25 -?-?-?-?-?-?-?-?-?-?-?-?- 33w 3d 244 lb 9 oz 106/68 Nega tive -?-?-?-?-?-?-?-?-?-?-?-?- Negative 140 34 -?-?-?-?-?-?-?-?-?-?-?-?- MH-No VB, LOF. G ood FM. Reactive NST. FLu vaccine given 01/20/25 -?-?-?-?-?-?-?-?-?-?-?-?- 33w 6d 247 lb 7 oz 112/70 Nega tive -?-?-?-?-?-?-?-?-?-?-?-?- Negative 130 -?-?-?-?-?-?-?-?-?-?-?-?- KW- No vb/lof/ct x. good fm. reactive NST 01/24/25 -?-?-?-?-?-?-?-?-?-?-?-?- 34w 3d 250 lb 7 oz 103/69 Nega tive -?-?-?-?-?-?-?-?-?-?-?-?- Negative 135 -?-?-?-?-?-?-?-?-?-?-?-?- KW- no vb/lof/ct x. good fm reactive nst has growth US scheduled. blood sugars controlled. ACOG First Trimester First Trimester: Desire for , Alcohol, Tobacco Cessation, Illicit/Recreational Drug/Substance Use, Intimate Partner Violence, Barriers to care, Unstable Housing, Communication Barriers, Environmental/Work Hazards, Anticipated Course of Care, Toxoplasmosis Precations, Use of Any medications, Sexual activity, Dental Care, Sauna/Hot tub use, Seat Belt use, Childbirth classes/Hospital facilities, Travel, Indications for Ultrasound and Screening for Aneuploidy; Discussed Exercise and Discussed Second Trimester Second Trimester: Signs and Symptoms of Labor, Selecting a care provider, Reproductive Life Planning & Contreception, Care Planning, Tobacco Cessation, Depression/Anxiety and Intimate Partner Violence Third Trimester Third Trimester: Pain Management Plans, Labor support person(s), Immediate Larc, Movement Monitoring and Feeding No ; Discussed Trial of Labor after Counseling and Discussed Circumcision preference ROS Const Reports system reviewed and no additional complaints, except as documented Eyes Reports system reviewed and no additional complaints, except as documented ENT Reports system reviewed and no additional complaints, except as documented Card Reports system reviewed and no additional complaints, except as documented Resp Reports system reviewed and no additional complaints, except as documented GI Reports system reviewed and no additional complaints, except as documented, Denies nausea and Denies vomiting Reports system reviewed and no additional complaints, except as documented Musc Reports system reviewed and no additional complaints, except as documented Skin/Breast Reports system reviewed and no additional complaints, except as documented Neuro Yes system reviewed and no additional complaints, except as documented Psych Reports system reviewed and no additional complaints, except as documented Endo Reports system reviewed and no additional complaints, except as documented Amol/Lymph Reports system reviewed and no additional complaints, except as documented Aller/Immun Reports system reviewed and no additional complaints, except as documented Exam Const General: cooperative, healthy appearing and no acute distress Orientation: alert, awake and oriented x3 Neck Neck: normal visual inspection and full ROM Resp Effort & Inspection: normal respiratory effort, able to speak in complete sentences and symmetric chest movement GI Inspection: normal to inspection Palpation: soft and other Other: gravid Skin General: no rashes or lesions noted Neuro General: patient alert, patient awake and patient oriented x3 Cognition: normal cognition Speech: speech normal Gait: normal gait Motor: muscle tone normal throughout Extrem General: normal to inspection and full ROM Psych Appearance: grossly normal Mental Status: mental status grossly normal Mood: congruent mood Affect: normal affect Speech and Movement: speech and movement normal Attitude: cooperative Thought Process: normal Thought Content: normal Judgment: judgment good Office Procedures Non-stress Test Non-Stress Test Indications for Monitoring: Yes diabetes Heart Rate Baseline: 135 Heart Rate Variability: moderate Movement: Present Heart Rate Accelerations: Present Decelerations: Absent Contractions: Absent Impression: Yes Reactive Non-Stress Test Results POC Urinalysis 2 Dip (Clinic) Office Urine Glucose Negative Last Edit by Indy Yoder on 01/24/25 10:31 Office Urine Protein Negative Last Edit by Indy Yoder on 01/24/25 10:31 Coding Level of Care Code Off vis,est,level 3 Diagnoses Uterine size date discrepancy O26.849 Gestational diabetes mellitus (GDM) in second trimester controlled on oral hypoglycemic drug O24.415 Gestational diabetes mellitus control: oral hypoglycemic-controlled Trimester: second trimester Insulin resistance complicating O26.899; E88.819 Urinary tract infection in mother during second trimester of O23.42 Trimester: second trimester Multigravida of advanced maternal age in third trimester O09.523 Trimester: third trimester Genital herpes affecting in third trimester O98.313; A60.09 Trimester: third trimester Obesity affecting in second trimester, unspecified obesity type O99.212 Obesity type affecting : unspecified obesity Trimester: second trimester History of gestational diabetes mellitus (GDM) in prior , currently O09.299; Z86.32 Anxiety F41.9 Supervision of high risk in third trimester O09.93 Trimester: third trimester 34 weeks gestation of Z3A.34 Weeks of gestation: 34 weeks CPT Codes Non-Stress Test (74984) Assessment and Plan Assessment and Plan (1) Uterine size date discrepancy : Status: Acute Comment: growth US ordered:32 wk:EFW 68%, AC 98%. 36 w scheduled (2) Gestational diabetes: Status: Acute Qualifiers: Gestational diabetes mellitus control: oral hypoglycemic-controlled Trimester: second trimester Qualified Code(s): O24.415 - Gestational diabetes mellitus in , controlled by oral hypoglycemic drugs (3) Insulin resistance complicating : Status: Acute Comment: on metformin; Dr Hall manages. Growth US 32 and 36 wk. Twice wkly NST at 32 wk. Del at 39 wk (4) UTI (urinary tract infection) during : Status: Acute Qualifiers: Trimester: second trimester Qualified Code(s): O23.42 - Unspecified infection of urinary tract in , second trimester (5) AMA (advanced maternal age) multigravida 35+: Status: Acute Qualifiers: Trimester: third trimester Qualified Code(s): O09.523 - Supervision of elderly multigravida, third trimester Comment: discussed genetic testing. Patient declines. (6) Genital herpes affecting : Status: Acute Qualifiers: Trimester: third trimester Qualified Code(s): O98.313 - Other infections with a predominantly sexual mode of transmission complicating , third trimester; A60.09 - Herpesviral infection of other urogenital tract Comment: valtrex at 34-36 weeks (7) Obesity affecting : Status: Acute Qualifiers: Obesity type affecting : unspecified obesity Trimester: secondtrimester Qualified Code(s): O99.212 - Obesity complicating , second trimester Comment: HGBA1C, BMI 33 (8) History of gestational diabetes mellitus (GDM) in prior , currently: Status: Acute (9) Anxiety: Status: Acute Comment: zoloft stopped. Continue counseling 3 X a week. "feels much better off med" (10) Supervision of high-risk : Status: Acute Qualifiers: Trimester: third trimester Qualified Code(s): O09.93 - Supervision of high risk , unspecified, third trimester Comment: PRR , ISIDRA 03/04/25, PC Aleksander Rodriguez, Farzad (11) : Status: Acute Qualifiers: Weeks of gestation: 34 weeks Qualified Code(s): Z3A.34 - 34 weeks gestation of Comment: declined NIPT & Carrier testing, nl 3 HR GTT, nl anatomy Orders: Orders POC Urinalysis 2 Dip (Clinic) Today OB NST Today E88.819 - Insulin resistance, unspecified, O09.93 - Supervision ofhigh risk , unspecified, third trimester, O26.899 - Other specified related conditions, unspecified trimester, Z3A.33 - 33 weeks gestationof Plan Details Additional Comments: ACOG trimester education reviewed and updated. see problem list details for updated plan management information and see below for orders placed at this visit. GA appropriate handout given. Clinical Quality Measures Falls Risk Screening/Assistive Devices Have you fallen in the past year?: No 01/24/25 1050 <Electronically signed by Alycia godinez CNM> Date _ Alycia Torres CNM Cosigner Signature: Date (if applicable) CC: ~ [facility] Work Phone: Progress note Author Alycia Torres [facility] Note Date/Time January 31, 2025 1 0:15am [facility] [address], [address] [place] [address] OFFICE VISIT Date of Service: 01/31/25 MR#: [id number] Acct: [id number] Name: BRITTANY ROCA Rep #: [id number] : 1985 Provider: RALPH Torres Age/Sex: 39/F [place] [facility] [place]: Signed Intake Vital Signs 01/06/25 08:44 01/17/25 09:59 01/27/25 15:11 01/31/25 08:41 Height 5 ft 10 in 5 ft 10 in 5 ft 9 in 5 ft 9 in Weight: 252 lb 4 oz BMI 37.2 BP 103/72 Intake Visit Reasons: 36wk ob/nst Chief Complaint: 36wk OB/NST Drying Oven Tender Required: No Is patient in pain?: No Allergies avocado (avacado) Allergy (Intermediate, Verified 01/31/25 08:38) Swelling of tongue Medications ?Medication ?Instructions ?Recorded ?Confirmed ?Type mv-mn 110-FA 180 mcg-om3 35 mg-dha tab PO DAILY 01/31/25 History 25 mg-epa 5 mg-fish oil chew tablet flash glucose scanning reader #1 ea 08/31/24 01/31/25 Rx (FreeStyle Todd 2 [place]) flash glucose sensor (FreeStyle #1 ea 08/31/24 5 Rx Todd 2 Sensor kit) metformin 500 mg tablet 500 mg PO .COMPLEX #60 tabs 01/03/25 01/31/25 Rx valacyclovir 500 mg tablet 500 mg PO QDAY #30 tabs 11/0501/31/25 Rx Last Menstrual Period: 05/28/24 : No Have you fallen in the past year?: No PFSH PFSH Medical History Varicose veins of both lower extremities Seasonal allergies Normal vaginal delivery Superficial varicosities Depression Gestational diabetes PCOS (polycystic ovarian syndrome) Genital herpes affecting Surgical History History of tonsillectomy Family History Aunt Breast cancer, Onset Age: 40 Maternal- unknown if genetic testing was done. 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 occupational exposures/hazards: No pets and animals: Yes pets and animals: dog(s) history of recent travel: Yes (- June) out of state: Yes out of country: No sexually active: Yes Smoking Status: Never smoker second hand exposure: No alcohol intake: current alcohol intake frequency: holidays/special occasions only details: not while substance use type: does not use well-balanced diet: daily or most days caffeine: No eating out: 1-3 times/week during the past year weight has: increased > 10 lbs what type of physical activity do you participate in: other details: crossfit frequency: 1-2 times per week duration: 45-60 minutes/day amanda/latter-day: Scientologist seatbelt use: always do you feel safe at home: Yes additional social history: - Farzad History 3 Elective abortions Hx Para 2 Spontaneous abortions Hx # Term Pregnancies Ectopic pregnancies Hx # Pregnancies Multiple births # of living children 2 Past Pregnancies Del. Date Name GA/Weeks Outcome Route Bth Weight Infant Gen Labor Lgth Anesthesia Del Locatn Provider FOB 08/26/18 Jennifer 40 live - full term 9lbs Female 16 hours none [facility] EB Farzad 10/24/20 Aleksander 39 live - full term 8#10oz Male epi dural [facility] Dr. Rainer Panda Delivery Date: 08/26/18 Last Updated by: Pauline Tay 3rd degree laceration; NICU for possible NEC- she did not have HPI 36wk ob/nst Details: BRITTANY ROCA is a 39 year old who presents for routine OB visit. OB Visit ISIDRA Calculator Estimated Delivery Date Method Current WG Current Estimate 03/04/25 LMP (Certain) 35w 3d Other Estimates 03/10/25 Ultrasound #1 34w 4d 03/04/25 Ultrasound #2 35w 3d Initial Weight: Not Recorded Date -?-?-?-?-?-?-?-?-?-?-?-?- EGA Weight BP Urine Prot -?-?-?-?-?-?-?-?-?-?-?-?- Glucose FHR FuHt Pres Dilation -?-?-?-?-?-?-?-?-?-?-?-?- Effaced St Visit Note 07/28/24 -?-?-?-?-?-?-?-?-?-?-?-?- 8w 5d 233 lb 2 oz 129/79 -?-?-?-?-?-?-?-?-?-?-?-?- 170 -?-?-?-?-?-?-?-?-?-?-?-?- SM- CRL 1.4 not cons with LMP 08/13/24 -?-?-?-?-?-?-?-?-?-?-?-?- 11w 0d Negative -?-?-?-?-?-?-?-?-?-?-?-?- Negative -?-?-?-?-?-?-?-?-?-?-?-?- nurse visit for UTI sx. culture sent and rx for atb sent due to sx. 08/30/24 -?-?-?-?-?-?-?-?-?-?-?-?- 13w 3d 234 lb 6 oz 115/73 Nega tive -?-?-?-?-?-?-?-?-?-?-?-?- Negative 155 -?-?-?-?-?-?-?-?-?-?-?-?- JV- no lof, vagi nal bleeding, or cramping. due date cleared up. Needs clean catch test of cure and new ob labs 09/27/24 -?-?-?-?-?-?-?-?-?-?-?-?- 17w 3d 236 lb 6 oz 116/75 -?-?-?-?-?-?-?-?-?-?-?-?- 155 -?-?-?-?-?-?-?-?-?-?-?-?- KW- US scheduled with [facility]. no vb/cramping. +flutters. On metformin 500mg for Blood sugars. Reports fasting BS under 95. Encouraged to continue checking BS and follow up with DR Kim. doing well on ZOloft. KW- US scheduled with [facility]. n o vb/cramping. +flutters. On metformin 500mg for Blood sugars. Reports fasting BS under 95. Encouraged to continue checking BS- has not been consistent- and follow up with DR Kim. doing well on ZOloft. 10/25/24 -?-?-?-?-?-?-?-?--?-?-?-?- 21w 3d 236 lb 2 oz 122/70 Nega tive -?-?-?-?-?-?-?-?-?-?-?-?- Negative 142 -?-?-?-?-?-?-?-?-?-?-?-?- -No VB. Jaziel Padilla M. Insulin resistant/on metformin and seeing Dr Hall -No VB. Jaziel FM. Insulin r esistant/on metformin and seeing Dr Hall. 11/25/24 -?-?-?-?-?-?-?-?-?-?-?-?- 25w 6d 236 lb 9 oz 97/64 Nega tive -?-?-?-?-?-?-?-?-?-?-?-?- Negative 140 26 -?-?-?-?-?-?-?-?-?-?-?-?- SM- no vb lof go od fm n oregular ctx 12/22/24 -?-?-?-?-?-?-?--?-?-?-?-?- 29w 5d 241 lb 8 oz 113/79 Nega tive -?-?-?-?-?-?-?-?-?-?-?-?- Negative 150 32 -?-?-?-?-?-?-?-?-?-?-?-?- - no vb/lof/ct x. good fm. Rafael following blood sugars. 1000mg of metformin nightly. growth US ordered for S>D 12/28/24 -?-?-?-?-?-?-?-?-?-?-?-?- 30w 4d 241 lb 6 oz 102/66 Nega tive -?-?-?-?-?-?-?-?-?-?-?-?- Negative 153 33 -?-?-?-?-?-?-?-?-?-?-?-?- MH-No VB,LOF, CT X. Good FM. Feeling more anxious, not sure zoloft working. Reassured concerning risks to . Discussed changing to buspar or increasing dosage. She prefers to increase dosage. Is seeing counselor 3 X month 01/06/25 -?-?-?-?-?-?-?-?-?-?-?-?- 31w 6d 243 lb 5 oz 105/65 Nega tive -?-?-?-?-?-?-?-?-?-?-?-?- Negative 157 34 -?-?-?-?-?-?-?-?-?-?-?-?- MH-No VB, LOF. G ood FM. Stopped zoloft completely and feels much better. Glucose levels followed per endo and at nl ranges. NSTs2 X wk start next week and has growth US next week 01/11/25 -?-?-?-?-?-?-?-?-?-?-?-?- 32w 4d 247 lb 2 oz 108/67 Nega tive -?-?-?-?-?-?-?-?-?-?-?-?- Negative 150 -?-?-?-?-?-?-?-?-?-?-?-?- JV- nst only tod ay. reactive. states metfomin is helping with fasting levels. followed by Dr. Hall. She has a growth scan now. 01/14/25 -?-?-?-?-?-?-?-?-?-?-?-?- 33w 0d 247 lb 3 oz 116/71 Nega tive -?-?-?-?-?-?-?-?-?-?-?-?- Negative 135 -?-?-?-?-?-?-?-?-?-?-?-?- KW- no vb/lof/ct x good fm. reactive NST. MIL in longterm-noticing some spikes in blood sugars with stress. still following with . 01/17/25 -?-?-?-?-?-?-?-?-?-?-?-?- 33w 3d 244 lb 9 oz 106/68 Nega tive -?-?-?-?-?-?-?-?-?-?-?-?- Negative 140 34 -?-?-?-?-?-?-?-?--?-?-?-?- MH-No VB, LOF. G ood FM. Reactive NST. FLu vaccine given 01/20/25 -?-?-?-?-?-?-?-?-?-?-?-?- 33w 6d 247 lb 7 oz 112/70 Nega tive -?-?-?-?-?-?-?-?--?-?-?-?- Negative 130 -?-?-?-?-?-?-?-?-?-?-?-?- KW- No vb/lof/ct x. good fm. reactive NST 01/24/25 -?-?-?-?-?-?-?-?-?-?-?-?- 34w 3d 250 lb 7 oz 103/69 Nega tive -?-?-?-?-?-?-?-?-?-?-?-?- Negative 135 -?-?-?-?-?-?-?-?-?-?-?-?- KW- no vb/lof/ct x. good fm reactive nst has growth US scheduled. blood sugars controlled. 01/27/25 -?-?-?-?-?-?-?-?-?-?-?-?- 34w 6d 249 lb 1 oz 113/74 Nega tive -?-?-?-?-?-?-?-?-?-?-?-?- Negative 130 -?-?-?-?-?-?-?-?-?-?-?-?- KW- NST only. no t reactive. to WP for BPP. 01/31/25 -?-?-?-?-?-?-?-?-?-?-?-?- 35w 3d 252 lb 4 oz 103/72 Nega tive -?-?--?-?-?-?-?-?-?-?-?-?- Negative 155 36 -?-?-?-?-?-?-?-?-?-?-?-?- KW- no vb/lof/ct x. good fm. Reactive NST. blood sugars reviewed. growth US next friday ACOG First Trimester First Trimester: Desire for , Alcohol, Tobacco Cessation, Illicit/Recreational Drug/Substance Use, Intimate Partner Violence, Barriers to care, Unstable Housing, Communication Barriers, Environmental/Work Hazards, Anticipated Course of Care, Toxoplasmosis Precations, Use of Any medications, Sexual activity, Dental Care, Sauna/Hot tub use, Seat Belt use, Childbirth classes/Hospital facilities, Travel, Indications for Ultrasound and Screening for Aneuploidy; Discussed Exercise and Discussed Second Trimester Second Trimester: Signs and Symptoms of Labor, Selecting a care provider, Reproductive Life Planning & Contreception, Care Planning, Tobacco Cessation, Depression/Anxiety and Intimate Partner Violence Third Trimester Third Trimester: Pain Management Plans, Labor support person(s), Immediate Larc, Movement Monitoring and Feeding No ; Discussed Trial of Labor after Counseling and Discussed Circumcision preference ROS Const Reports system reviewed and no additional complaints, except as documented Eyes Reports system reviewed and no additional complaints, except as documented ENT Reports system reviewed and no additional complaints, except as documented Card Reports system reviewed and no additional complaints, except as documented Resp Reports system reviewed and no additional complaints, except as documented GI Reports system reviewed and no additional complaints, except as documented, Denies nausea and Denies vomiting Reports system reviewed and no additional complaints, except as documented Musc Reports system reviewed and no additional complaints, except as documented Skin/Breast Reports system reviewed and no additional complaints, except as documented Neuro Yes system reviewed and no additional complaints, except as documented Psych Reports system reviewed and no additional complaints, except as documented Endo Reports system reviewed and no additional complaints, except as documented Amol/Lymph Reports system reviewed and no additional complaints, except as documented Aller/Immun Reports system reviewed and no additional complaints, except as documented Exam Const General: cooperative, healthy appearing and no acute distress Orientation: alert, awake and oriented x3 Neck Neck: normal visual inspection and full ROM Resp Effort & Inspection: normal respiratory effort, able to speak in complete sentences and symmetric chest movement GI Inspection: normal to inspection Palpation: soft and other Other: gravid Skin General: no rashes or lesions noted Neuro General: patient alert, patient awake and patient oriented x3 Cognition: normal cognition Speech: speech normal Gait: normal gait Motor: muscle tone normal throughout Extrem General: normal to inspection and full ROM Psych Appearance: grossly normal Mental Status: mental status grossly normal Mood: congruent mood Affect: normal affect Speech and Movement: speech and movement normal Attitude: cooperative Thought Process: normal Thought Content: normal Judgment: judgment good Office Procedures Non-stress Test Non-Stress Test Indications for Monitoring: Yes diabetes Heart Rate Baseline: 150 Heart Rate Variability: moderate Movement: Present Heart Rate Accelerations: Present Decelerations: Absent Contractions: Absent Impression: Yes Reactive Non-Stress Test Results POC Urinalysis 2 Dip (Clinic) Office Urine Glucose Negative Last Edit by Indy Yoder on 01/31/25 08:52 Office Urine Protein Negative Last Edit by Indy Yoder on 01/31/25 08:52 Coding Level of Care Code Off vis,est,level 3 Diagnoses Uterine size date discrepancy O26.849 Gestational diabetes mellitus (GDM) in second trimester controlled on oral hypoglycemic drug O24.415 Gestational diabetes mellitus control: oral hypoglycemic-controlled Trimester: second trimester Insulin resistance complicating O26.899; E88.819 Urinary tract infection in mother during second trimester of O23.42 Trimester: second trimester Multigravida of advanced maternal age in third trimester O09.523 Trimester: third trimester Genital herpes affecting in third trimester O98.313; A60.09 Trimester: third trimester Obesity affecting in second trimester, unspecified obesity type O99.212 Obesity type affecting : unspecified obesity Trimester: second trimester History of gestational diabetes mellitus (GDM) in prior , currently O09.299; Z86.32 Anxiety F41.9 Supervision of high risk in third trimester O09.93 Trimester: third trimester 35 weeks gestation of Z3A.35 Weeks of gestation: 35 weeks CPT Codes Non-Stress Test (55869) Assessment and Plan Assessment and Plan (1) Uterine size date discrepancy : Status: Acute Comment: growth US ordered:32 wk:EFW 68%, AC 98%. 36 w scheduled (2) Gestational diabetes: Status: Acute Qualifiers: Gestational diabetes mellitus control: oral hypoglycemic-controlled Trimester: second trimester Qualified Code(s): O24.415 - Gestational diabetes mellitus in , controlled by oral hypoglycemic drugs (3) Insulin resistance complicating : Status: Acute Comment: on metformin; Dr Hall manages. Growth US 32 and 36 wk. Twice wkly NST at 32 wk. Del at 39 wk (4) UTI (urinary tract infection) during : Status: Acute Qualifiers: Trimester: second trimester Qualified Code(s): O23.42 - Unspecified infection of urinary tract in , second trimester (5) AMA (advanced maternal age) multigravida 35+: Status: Acute Qualifiers: Trimester: third trimester Qualified Code(s): O09.523 - Supervision of elderly multigravida, third trimester Comment: discussed genetic testing. Patient declines. (6) Genital herpes affecting : Status: Acute Qualifiers: Trimester: third trimester Qualified Code(s): O98.313 - Other infections with a predominantly sexual mode of transmission complicating , third trimester; A60.09 - Herpesviral infection of other urogenital tract Comment: valtrex at 34-36 weeks (7) Obesity affecting : Status: Acute Qualifiers: Obesity type affecting : unspecified obesity Trimester: secondtrimester Qualified Code(s): O99.212 - Obesity complicating , second trimester Comment: HGBA1C, BMI 33 (8) History of gestational diabetes mellitus (GDM) in prior , currently: Status: Acute (9) Anxiety: Status: Acute Comment: zoloft stopped. Continue counseling 3 X a week. "feels much better off med" (10) Supervision of high-risk : Status: Acute Qualifiers: Trimester: third trimester Qualified Code(s): O09.93 - Supervision of high risk , unspecified, third trimester Comment: PRR , ISIDRA 03/04/25, PC Aleksander Rodriguez, Farzad (11) : Status: Acute Qualifiers: Weeks of gestation: 35 weeks Qualified Code(s): Z3A.35 - 35 weeks gestation of Comment: declined NIPT & Carrier testing, nl 3 HR GTT, nl anatomy Orders: Orders POC Urinalysis 2 Dip (Clinic) Today OB NST Today E88.819 - Insulin resistance, unspecified, O09.299 - Supervision of with other poor reproductive or obstetric history, unspecified trimester, O26.899 - Other specified related conditions, unspecified trimester, Z86.32 - Personal history of gestational diabetes Plan Details Additional Comments: ACOG trimester education reviewed and updated. see problem list details for updated plan management information and see below for orders placed at this visit. GA appropriate handout given. Clinical Quality Measures Falls Risk Screening/Assistive Devices Have you fallen in the past year?: No 01/31/25 0915 <Electronically signed by Alycia godinez CNM> Date _ Alycia Torres CNM Cosigner Signature: Date (if applicable) CC: ~ [facility] Work Phone: Reason for referral (narrative)No reason for referral information availableWTr[facility] Work Phone: Chief Complaint and Reason for Visit Chief Complaint Admit Date New OB, LMP 2/14, ISIDRA 03/04July 28, 2024 9:47am Reason for Visit Admit Date AMA (advanced maternal age) multigravida 35+ July 28, 2024 9:47am Anxiety July 28, 2024 9:4 7am Genital herpes affecting July 28, 2024 9:47am History of gestational diabe brandt mellitus (GDM) in prior , currentl July 28, 2024 9:47am Obesity affecting July 28, 2024 9:47am July 28, 2024 9:4 7am Supervision of high-risk July 28, 2024 9:47am Chief Complaint Admit Date New OB, LMP 214, ISIDRA 03/04July 28, 2024 9:47am Urine sample *possible UTI August 13, 2024 9:10am Reason for Visit Admit Date AMA (advanced maternal age) multigravida 35+ July 28, 2024 9:47am Anxiety July 28, 2024 9:4 7am Genital herpes affecting July 28, 2024 9:47am History of gestational diabe brandt mellitus (GDM) in prior , currentl July 28, 2024 9:47am Obesity affecting July 28, 2024 9:47am July 28, 2024 9:4 7am Supervision of high-risk July 28, 2024 9:47am AMA (advanced maternal age) multigravida 35+ August 13, 2024 9:10am Anxiety August 13, 2024 9:10am Genital herpes affecting August 132024 9:10am History of gestational diabe brandt mellitus (GDM) in prior , currentl August 13, 2024 9:10am Obesity affecting August 13 9:10am August 13, 2024 9:10am Supervision of high-risk August 132024 9:10am UTI (urinary tract infection) during pre gnancy August 13, 2024 9:10am Chief Complaint Admit Date New OB, LMP 2, ISIDRA 03/04July 28, 2024 9:47am Urine sample *possible UTI August 13, 2024 9:10am 14wk ob August 30, 2024 10:13 am Reason for Visit Admit Date AMA (advanced maternal age) multigravida 35+ July 28, 2024 9:47am Anxiety July 28, 2024 9:4 7am Genital herpes affecting July 28, 2024 9:47am History of gestational diabe brandt mellitus (GDM) in prior , currentl July 28, 2024 9:47am Obesity affecting July 28, 2024 9:47am July 28, 2024 9:4 7am Supervision of high-risk July 28, 2024 9:47am AMA (advanced maternal age) multigravida 35+ August 13, 2024 9:10am Anxiety August 13, 2024 9:10am Genital herpes affecting August 132024 9:10am History of gestational diabe brandt mellitus (GDM) in prior , currentl August 13, 2024 9:10am Obesity affecting August 13 9:10am August 13, 2024 9:10am Supervision of high-risk August 132024 9:10am UTI (urinary tract infection) during pre gnancy August 13, 2024 9:10am AMA (advanced maternal age) multigravida 35+ August 30, 2024 10:13am Anxiety August 30, 2024 10:13 am Genital herpes affecting August 122024 10:13am History of gestational diabe brandt mellitus (GDM) in prior , currentl August 30, 2024 10:13am Obesity affecting August 30 10:13am August 30, 2024 10:13 am Supervision of high-risk August 122024 10:13am UTI (urinary tract infection) during pre gnancy August 30, 2024 10:13am Chief Complaint Admit Date New OB, LMP 214, ISIDRA 03/04July 28, 2024 9:47am Urine sample *possible UTI August 13, 2024 9:10am 14wk ob August 30, 2024 10:13 am Lab Glucose Gestational September 08, 2024 1 0:01am Chief Complaint Admit Date New OB, LMP 2/14, ISIDRA 03/04July 28, 2024 9:47am Urine sample *possible UTI August 13, 2024 9:10am 14wk ob August 30, 2024 10:13 am Lab Glucose Gestational September 08, 2024 1 0:01am 18wk ob September 27, 2024 10:1 9am Reason for Visit Admit Date AMA (advanced maternal age) multigravida 35+ July 28, 2024 9:47am Anxiety July 28, 2024 9:4 7am Genital herpes affecting July 28, 2024 9:47am History of gestational diabe brandt mellitus (GDM) in prior , currentl July 28, 2024 9:47am Obesity affecting July 28, 2024 9:47am July 28, 2024 9:4 7am Supervision of high-risk July 28, 2024 9:47am AMA (advanced maternal age) multigravida 35+ August 13, 2024 9:10am Anxiety August 13, 2024 9:10am Genital herpes affecting August 132024 9:10am History of gestational diabe brandt mellitus (GDM) in prior , currentl August 13, 2024 9:10am Obesity affecting August 13 9:10am August 13, 2024 9:10am Supervision of high-risk August 132024 9:10am UTI (urinary tract infection) during pre gnancy August 13, 2024 9:10am AMA (advanced maternal age) multigravida 35+ August 30, 2024 10:13am Anxiety August 30, 2024 10:13 am Genital herpes affecting August 122024 10:13am History of gestational diabe brandt mellitus (GDM) in prior , currentl August 30, 2024 10:13am Obesity affecting August 30 10:13am August 30, 2024 10:13 am Supervision of high-risk August 122024 10:13am UTI (urinary tract infection) during pre gnancy August 30, 2024 10:13am AMA (advanced maternal age) multigravida 35+ September 27, 2024 10:19am Anxiety September 27, 2024 10:1 9am Genital herpes affecting September 27, 2024 10:19am History of gestational diabe brandt mellitus (GDM) in prior , currentl September 27, 2024 10:19am Insulin resistance complicating pregnanc y September 27, 2024 10:19am Obesity affecting September 27, 025 10:19am September 27, 2024 10:1 9am Supervision of high-risk September 27, 2024 10:19am UTI (urinary tract infection) during pre gnancy September 27, 2024 10:19am Chief Complaint Admit Date New OB, LMP 05/28, ISIDRA 03/04July 28, 2024 9:47am Urine sample *possible UTI August 13, 2024 9:10am 14wk ob August 30, 2024 10:13 am Lab Glucose Gestational September 08, 2024 1 0:01am 18wk ob September 27, 2024 10:1 9am 22wk ob October 25, 2024 10:1 0am Reason for Visit Admit Date AMA (advanced maternal age) multigravida 35+ July 28, 2024 9:47am Anxiety July 28, 2024 9:4 7am Genital herpes affecting July 28, 2024 9:47am History of gestational diabe brandt mellitus (GDM) in prior , currentl July 28, 2024 9:47am Obesity affecting July 28, 2024 9:47am July 28, 2024 9:4 7am Supervision of high-risk July 28, 2024 9:47am AMA (advanced maternal age) multigravida 35+ August 13, 2024 9:10am Anxiety August 13, 2024 9:10am Genital herpes affecting August 132024 9:10am History of gestational diabe brandt mellitus (GDM) in prior , currentl August 13, 2024 9:10am Obesity affecting August 13 9:10am August 13, 2024 9:10am Supervision of high-risk August 132024 9:10am UTI (urinary tract infection) during pre gnancy August 13, 2024 9:10am AMA (advanced maternal age) multigravida 35+ August 30, 2024 10:13am Anxiety August 30, 2024 10:13 am Genital herpes affecting August 122024 10:13am History of gestational diabe brandt mellitus (GDM) in prior , currentl August 30, 2024 10:13am Obesity affecting August 30 10:13am August 30, 2024 10:13 am Supervision of high-risk August 122024 10:13am UTI (urinary tract infection) during pre gnancy August 30, 2024 10:13am AMA (advanced maternal age) multigravida 35+ September 27, 2024 10:19am Anxiety September 27, 2024 10:1 9am Genital herpes affecting September 27, 2024 10:19am History of gestational diabe brandt mellitus (GDM) in prior , currentl September 27, 2024 10:19am Insulin resistance complicating pregnanc y September 27, 2024 10:19am Obesity affecting September 27, 025 10:19am September 27, 2024 10:1 9am Supervision of high-risk September 27, 2024 10:19am UTI (urinary tract infection) during pre gnancy September 27, 2024 10:19am AMA (advanced maternal age) multigravida 35+ October 25, 2024 10:10am Anxiety October 25, 2024 10:1 0am Genital herpes affecting October 25, 2024 10:10am History of gestational diabe brandt mellitus (GDM) in prior , currentl October 25, 2024 10:10am Insulin resistance complicating pregnanc y October 25, 2024 10:10am Obesity affecting October 25, 025 10:10am October 25, 2024 10:1 0am Supervision of high-risk October 25, 2024 10:10am UTI (urinary tract infection) during pre gnancy October 25, 2024 10:10am Chief Complaint Admit Date New OB, LMP 05/28, ISIDRA 03/04July 28, 2024 9:47am Urine sample *possible UTI August 13, 2024 9:10am 14wk ob August 30, 2024 10:13 am Lab Glucose Gestational September 08, 2024 1 0:01am 18wk ob September 27, 2024 10:1 9am 22wk ob October 25, 2024 10:1 0am Re-est Gestational Diabetes October 28, 2 025 1:37pm Chief Complaint Admit Date New OB, LMP 2/14, ISIDRA 03/04July 28, 2024 9:47am Urine sample *possible UTI August 13, 2024 9:10am 14wk ob August 30, 2024 10:13 am Lab Glucose Gestational September 08, 2024 1 0:01am 18wk ob September 27, 2024 10:1 9am 22wk ob October 25, 2024 10:1 0am Re-est Gestational Diabetes October 28, 2 025 1:37pm 26wk ob/glucose November 25, 2024 9: 42am Reason for Visit Admit Date AMA (advanced maternal age) multigravida 35+ July 28, 2024 9:47am Anxiety July 28, 2024 9:4 7am Genital herpes affecting July 28, 2024 9:47am History of gestational diabe brandt mellitus (GDM) in prior , currentl July 28, 2024 9:47am Obesity affecting July 28, 2024 9:47am July 28, 2024 9:4 7am Supervision of high-risk July 28, 2024 9:47am AMA (advanced maternal age) multigravida 35+ August 13, 2024 9:10am Anxiety August 13, 2024 9:10am Genital herpes affecting August 132024 9:10am History of gestational diabe brandt mellitus (GDM) in prior , currentl August 13, 2024 9:10am Obesity affecting August 13 9:10am August 13, 2024 9:10am Supervision of high-risk August 132024 9:10am UTI (urinary tract infection) during pre gnancy August 13, 2024 9:10am AMA (advanced maternal age) multigravida 35+ August 30, 2024 10:13am Anxiety August 30, 2024 10:13 am Genital herpes affecting August 122024 10:13am History of gestational diabe brandt mellitus (GDM) in prior , currentl August 30, 2024 10:13am Obesity affecting August 30 10:13am August 30, 2024 10:13 am Supervision of high-risk August 122024 10:13am UTI (urinary tract infection) during pre gnancy August 30, 2024 10:13am AMA (advanced maternal age) multigravida 35+ September 27, 2024 10:19am Anxiety September 27, 2024 10:1 9am Genital herpes affecting September 27, 2024 10:19am History of gestational diabe brandt mellitus (GDM) in prior , currentl September 27, 2024 10:19am Insulin resistance complicating pregnanc y September 27, 2024 10:19am Obesity affecting September 27, 10:19am September 27, 2024 10:1 9am Supervision of high-risk September 27, 2024 10:19am UTI (urinary tract infection) during pre gnancy September 27, 2024 10:19am AMA (advanced maternal age) multigravida 35+ October 25, 2024 10:10am Anxiety October 25, 2024 10:1 0am Genital herpes affecting October 25, 2024 10:10am History of gestational diabe brandt mellitus (GDM) in prior , currentl October 25, 2024 10:10am Insulin resistance complicating pregnanc y October 25, 2024 10:10am Obesity affecting October 25, 025 10:10am October 25, 2024 10:1 0am Supervision of high-risk October 25, 2024 10:10am UTI (urinary tract infection) during pre gnancy October 25, 2024 10:10am Gestational diabetes October 28, 2024 1:3 7pm AMA (advanced maternal age) multigravida 35+ November 25, 2024 9:42am Anxiety November 25, 2024 9: 42am Genital herpes affecting Augus 2024 9:42am Gestational diabetes November 25, 2024 9 :42am History of gestational diabe brandt mellitus (GDM) in prior , currentl November 25, 2024 9:42am Insulin resistance complicating pregnanc y November 25, 2024 9:42am Obesity affecting November 25, 2024 9:42am November 25, 2024 9: 42am Supervision of high-risk Augus t 2024 9:42am UTI (urinary tract infection) during pre gnancy November 25, 2024 9:42am Chief Complaint Admit Date Urine sample *possible UTI August 13, 2024 9:10am 14wk ob August 30, 2024 10:13 am Lab Glucose Gestational September 08, 2024 1 0:01am 18wk ob September 27, 2024 10:1 9am 22wk ob October 25, 2024 10:1 0am Re-est Gestational Diabetes October 28, 025 1:37pm 26wk ob/glucose November 25, 2024 9: 42am Reason for Visit Admit Date AMA (advanced maternal age) multigravida 35+ August 13, 2024 9:10am Anxiety August 13, 2024 9:10am Genital herpes affecting August 132024 9:10am History of gestational diabe brandt mellitus (GDM) in prior , currentl August 13, 2024 9:10am Obesity affecting August 13 9:10am August 13, 2024 9:10am Supervision of high-risk August 132024 9:10am UTI (urinary tract infection) during pre gnancy August 13, 2024 9:10am AMA (advanced maternal age) multigravida 35+ August 30, 2024 10:13am Anxiety August 30, 2024 10:13 am Genital herpes affecting August 122024 10:13am History of gestational diabe brandt mellitus (GDM) in prior , currentl August 30, 2024 10:13am Obesity affecting August 30 10:13am August 30, 2024 10:13 am Supervision of high-risk August 122024 10:13am UTI (urinary tract infection) during pre gnancy August 30, 2024 10:13am AMA (advanced maternal age) multigravida 35+ September 27, 2024 10:19am Anxiety September 27, 2024 10:1 9am Genital herpes affecting September 27, 2024 10:19am History of gestational diabe brandt mellitus (GDM) in prior , currentl September 27, 2024 10:19am Insulin resistance complicating pregnanc y September 27, 2024 10:19am Obesity affecting September 27, 025 10:19am September 27, 2024 10:1 9am Supervision of high-risk September 27, 2024 10:19am UTI (urinary tract infection) during pre gnancy September 27, 2024 10:19am AMA (advanced maternal age) multigravida 35+ October 25, 2024 10:10am Anxiety October 25, 2024 10:1 0am Genital herpes affecting October 25, 2024 10:10am History of gestational diabe brandt mellitus (GDM) in prior , currentl October 25, 2024 10:10am Insulin resistance complicating pregnanc y October 25, 2024 10:10am Obesity affecting October 25 10:10am October 25, 2024 10:1 0am Supervision of high-risk October 25, 2024 10:10am UTI (urinary tract infection) during pre gnancy October 25, 2024 10:10am Gestational diabetes October 28, 2024 1:3 7pm AMA (advanced maternal age) multigravida 35+ November 25, 2024 9:42am Anxiety November 25, 2024 9: 42am Genital herpes affecting [facility] t 2024 9:42am Gestational diabetes November 25, 2024 9 :42am History of gestational diabe brandt mellitus (GDM) in prior , currentl November 25, 2024 9:42am Insulin resistance complicating pregnanc y November 25, 2024 9:42am Obesity affecting November 25, 2024 9:42am November 25, 2024 9: 42am Supervision of high-risk [facility] 2024 9:42am UTI (urinary tract infection) during pre gnancy November 25, 2024 9:42am Chief Complaint Admit Date 14wk ob August 30, 2024 10:13 am Lab Glucose Gestational September 08, 2024 1 0:01am 18wk ob September 27, 2024 10:1 9am 22wk ob October 25, 2024 10:1 0am Re-est Gestational Diabetes Xiao 17th, 2 025 1:37pm 26wk ob/glucose November 25, 2024 9: 42am 30wk ob December 22, 2024 1:59pm Reason for Visit Admit Date AMA (advanced maternal age) multigravida 35+ August 30, 2024 10:13am Anxiety August 30, 2024 10:13 am Genital herpes affecting August 122024 10:13am History of gestational diabe brandt mellitus (GDM) in prior , currentl August 30, 2024 10:13am Obesity affecting August 30 10:13am August 30, 2024 10:13 am Supervision of high-risk August 122024 10:13am UTI (urinary tract infection) during pre gnancy August 30, 2024 10:13am AMA (advanced maternal age) multigravida 35+ September 27, 2024 10:19am Anxiety September 27, 2024 10:1 9am Genital herpes affecting September 27, 2024 10:19am History of gestational diabe brandt mellitus (GDM) in prior , currentl September 27, 2024 10:19am Insulin resistance complicating pregnanc y September 27, 2024 10:19am Obesity affecting September 27, 025 10:19am September 27, 2024 10:1 9am Supervision of high-risk September 27, 2024 10:19am UTI (urinary tract infection) during pre gnancy September 27, 2024 10:19am AMA (advanced maternal age) multigravida 35+ October 25, 2024 10:10am Anxiety October 25, 2024 10:1 0am Genital herpes affecting October 25, 2024 10:10am History of gestational diabe brandt mellitus (GDM) in prior , currentl October 25, 2024 10:10am Insulin resistance complicating pregnanc y October 25, 2024 10:10am Obesity affecting October 25, 2 025 10:10am October 25, 2024 10:1 0am Supervision of high-risk October 25, 2024 10:10am UTI (urinary tract infection) during pre gnancy October 25, 2024 10:10am Gestational diabetes October 28, 2024 1:3 7pm AMA (advanced maternal age) multigravida 35+ November 25, 2024 9:42am Anxiety November 25, 2024 9: 42am Genital herpes affecting [facility] t 2024 9:42am Gestational diabetes November 25, 2024 9 :42am History of gestational diabe brandt mellitus (GDM) in prior , currentl November 25, 2024 9:42am Insulin resistance complicating pregnanc y November 25, 2024 9:42am Obesity affecting November 25, 2024 9:42am November 25, 2024 9: 42am Supervision of high-risk [facility] 2024 9:42am UTI (urinary tract infection) during pre gnancy November 25, 2024 9:42am AMA (advanced maternal age) multigravida 35+ December 22, 2024 1:59pm Anxiety December 22, 2024 1:59pm Genital herpes affecting [facility] 2024 1:59pm Gestational diabetes December 22 1:59pm History of gestational diabe brandt mellitus (GDM) in prior , currentl December 22, 2024 1:59pm Insulin resistance complicating pregnanc y December 22, 2024 1:59pm Obesity affecting December 222024 1:59pm December 22, 2024 1:59pm Supervision of high-risk [facility] 2024 1:59pm UTI (urinary tract infection) during pre gnancy December 22, 2024 1:59pm Chief Complaint Admit Date 14wk ob August 30, 2024 10:13 am Lab Glucose Gestational September 08, 2024 1 0:01am 18wk ob September 27, 2024 10:1 9am 22wk ob October 25, 2024 10:1 0am Re-est Gestational Diabetes October 28, 2 025 1:37pm 26wk ob/glucose November 25, 2024 9: 42am 30wk ob December 22, 2024 1:59pm increased mood swings & concerns -per sm December 28, 2024 3:08pm Reason for Visit Admit Date AMA (advanced maternal age) multigravida 35+ August 30, 2024 10:13am Anxiety August 30, 2024 10:13 am Genital herpes affecting August 122024 10:13am History of gestational diabe brandt mellitus (GDM) in prior , currentl August 30, 2024 10:13am Obesity affecting August 30 10:13am August 30, 2024 10:13 am Supervision of high-risk August 122024 10:13am UTI (urinary tract infection) during pre gnancy August 30, 2024 10:13am AMA (advanced maternal age) multigravida 35+ September 27, 2024 10:19am Anxiety September 27, 2024 10:1 9am Genital herpes affecting September 27, 2024 10:19am History of gestational diabe brandt mellitus (GDM) in prior , currentl September 27, 2024 10:19am Insulin resistance complicating pregnanc y September 27, 2024 10:19am Obesity affecting September 27, 10:19am September 27, 2024 10:1 9am Supervision of high-risk September 27, 2024 10:19am UTI (urinary tract infection) during pre gnancy September 27, 2024 10:19am AMA (advanced maternal age) multigravida 35+ October 25, 2024 10:10am Anxiety October 25, 2024 10:1 0am Genital herpes affecting October 25, 2024 10:10am History of gestational diabe brandt mellitus (GDM) in prior , currentl October 25, 2024 10:10am Insulin resistance complicating pregnanc y October 25, 2024 10:10am Obesity affecting October 25, 2 025 10:10am October 25, 2024 10:1 0am Supervision of high-risk October 25, 2024 10:10am UTI (urinary tract infection) during pre gnancy October 25, 2024 10:10am Gestational diabetes October 28, 2024 1:3 7pm AMA (advanced maternal age) multigravida 35+ November 25, 2024 9:42am Anxiety November 25, 2024 9: 42am Genital herpes affecting [facility] t 2024 9:42am Gestational diabetes November 25, 2024 9 :42am History of gestational diabe brandt mellitus (GDM) in prior , currentl November 25, 2024 9:42am Insulin resistance complicating pregnanc y November 25, 2024 9:42am Obesity affecting November 25, 2024 9:42am November 25, 2024 9: 42am Supervision of high-risk [facility] t 2024 9:42am UTI (urinary tract infection) during pre gnancy November 25, 2024 9:42am AMA (advanced maternal age) multigravida 35+ December 22, 2024 1:59pm Anxiety December 22, 2024 1:59pm Genital herpes affecting [facility] 2024 1:59pm Gestational diabetes December 22 1:59pm History of gestational diabe brandt mellitus (GDM) in prior , currentl December 22, 2024 1:59pm Insulin resistance complicating pregnanc y December 22, 2024 1:59pm Obesity affecting December 222024 1:59pm December 22, 2024 1:59pm Supervision of high-risk [facility] 2024 1:59pm UTI (urinary tract infection) during pre gnancy December 22, 2024 1:59pm AMA (advanced maternal age) multigravida 35+ December 28, 2024 3:08pm Anxiety December 28, 2024 3:08pm Genital herpes affecting [facility] 2024 3:08pm Gestational diabetes December 28 3:08pm History of gestational diabe brandt mellitus (GDM) in prior , currentl December 28, 2024 3:08pm Insulin resistance complicating pregnanc y December 28, 2024 3:08pm Obesity affecting December 282024 3:08pm December 28, 2024 3:08pm Supervision of high-risk [facility] 2024 3:08pm Uterine size date discrepancy December 28, 2024 3:08pm Chief Complaint Admit Date 18wk ob September 27, 2024 10:1 9am 22wk ob October 25, 2024 10:1 0am Re-est Gestational Diabetes October 28, 2 025 1:37pm 26wk ob/glucose November 25, 2024 9: 42am 30wk ob December 22, 2024 1:59pm increased mood swings & concerns -per sm December 28, 2024 3:08pm 32 wk ob January 06, 2025 8:43am 33wk NST ONLY January 11, 2025 8:56am Reason for Visit Admit Date AMA (advanced maternal age) multigravida 35+ September 27, 2024 10:19am Anxiety September 27, 2024 10:1 9am Genital herpes affecting September 27, 2024 10:19am History of gestational diabe brandt mellitus (GDM) in prior , currentl September 27, 2024 10:19am Insulin resistance complicating pregnanc y September 27, 2024 10:19am Obesity affecting September 27, 2 025 10:19am September 27, 2024 10:1 9am Supervision of high-risk September 27, 2024 10:19am UTI (urinary tract infection) during pre gnancy September 27, 2024 10:19am AMA (advanced maternal age) multigravida 35+ October 25, 2024 10:10am Anxiety October 25, 2024 10:1 0am Genital herpes affecting October 25, 2024 10:10am History of gestational diabe brandt mellitus (GDM) in prior , currentl October 25, 2024 10:10am Insulin resistance complicating pregnanc y October 25, 2024 10:10am Obesity affecting October 25, 2 025 10:10am October 25, 2024 10:1 0am Supervision of high-risk October 25, 2024 10:10am UTI (urinary tract infection) during pre gnancy October 25, 2024 10:10am Gestational diabetes October 28, 2024 1:3 7pm AMA (advanced maternal age) multigravida 35+ November 25, 2024 9:42am Anxiety November 25, 2024 9: 42am Genital herpes affecting [facility] t 2024 9:42am Gestational diabetes November 25, 2024 9 :42am History of gestational diabe brandt mellitus (GDM) in prior , currentl November 25, 2024 9:42am Insulin resistance complicating pregnanc y November 25, 2024 9:42am Obesity affecting November 25, 2024 9:42am November 25, 2024 9: 42am Supervision of high-risk [facility] t 2024 9:42am UTI (urinary tract infection) during pre gnancy November 25, 2024 9:42am AMA (advanced maternal age) multigravida 35+ December 22, 2024 1:59pm Anxiety December 22, 2024 1:59pm Genital herpes affecting [facility] 2024 1:59pm Gestational diabetes December 22 1:59pm History of gestational diabe brandt mellitus (GDM) in prior , currentl December 22, 2024 1:59pm Insulin resistance complicating pregnanc y December 22, 2024 1:59pm Obesity affecting December 222024 1:59pm December 22, 2024 1:59pm Supervision of high-risk [facility] 2024 1:59pm UTI (urinary tract infection) during pre gnancy December 22, 2024 1:59pm AMA (advanced maternal age) multigravida 35+ December 28, 2024 3:08pm Anxiety December 28, 2024 3:08pm Genital herpes affecting [facility] 2024 3:08pm Gestational diabetes December 28 3:08pm History of gestational diabe brandt mellitus (GDM) in prior , currentl December 28, 2024 3:08pm Insulin resistance complicating pregnanc y December 28, 2024 3:08pm Obesity affecting December 282024 3:08pm December 28, 2024 3:08pm Supervision of high-risk [facility] 2024 3:08pm Uterine size date discrepancy December 28, 2024 3:08pm AMA (advanced maternal age) multigravida 35+ January 06, 2025 8:43am Anxiety January 06, 2025 8:43am Genital herpes affecting [facility] 2024 8:43am Gestational diabetes January 06 8:43am History of gestational diabe brandt mellitus (GDM) in prior , currentl January 06, 2025 8:43am Insulin resistance complicating pregnanc y January 06, 2025 8:43am Obesity affecting January 062024 8:43am January 06, 2025 8:43am Supervision of high-risk [facility] 2024 8:43am Uterine size date discrepancy January 06, 2025 8:43am UTI (urinary tract infection) during pre gnancy January 06, 2025 8:43am AMA (advanced maternal age) multigravida 35+ January 11, 2025 8:56am Anxiety January 11, 2025 8:56am Genital herpes affecting [facility] 2024 8:56am Gestational diabetes January 11 8:56am History of gestational diabe brandt mellitus (GDM) in prior , currentl January 11, 2025 8:56am Insulin resistance complicating pregnanc y January 11, 2025 8:56am Obesity affecting January 112024 8:56am January 11, 2025 8:56am Supervision of high-risk [facility] 2024 8:56am Uterine size date discrepancy January 11, 2025 8:56am UTI (urinary tract infection) during pre gnancy January 11, 2025 8:56am Chief Complaint Admit Date 18wk ob September 27, 2024 10:1 9am 22wk ob October 25, 2024 10:1 0am Re-est Gestational Diabetes October 28, 025 1:37pm 26wk ob/glucose November 25, 2024 9: 42am 30wk ob December 22, 2024 1:59pm increased mood swings & concerns -per sm December 28, 2024 3:08pm 32 wk ob January 06, 2025 8:43am 33wk NST ONLY January 11, 2025 8:56am 33wk ob/nst January 14, 2025 8: 03am Reason for Visit Admit Date AMA (advanced maternal age) multigravida 35+ September 27, 2024 10:19am Anxiety September 27, 2024 10:1 9am Genital herpes affecting September 27, 2024 10:19am History of gestational diabe brandt mellitus (GDM) in prior , currentl September 27, 2024 10:19am Insulin resistance complicating pregnanc y September 27, 2024 10:19am Obesity affecting September 27, 2 025 10:19am September 27, 2024 10:1 9am Supervision of high-risk September 27, 2024 10:19am UTI (urinary tract infection) during pre gnancy September 27, 2024 10:19am AMA (advanced maternal age) multigravida 35+ October 25, 2024 10:10am Anxiety October 25, 2024 10:1 0am Genital herpes affecting October 25, 2024 10:10am History of gestational diabe brandt mellitus (GDM) in prior , currentl October 25, 2024 10:10am Insulin resistance complicating pregnanc y October 25, 2024 10:10am Obesity affecting October 25, 025 10:10am October 25, 2024 10:1 0am Supervision of high-risk October 25, 2024 10:10am UTI (urinary tract infection) during pre gnancy October 25, 2024 10:10am Gestational diabetes October 28, 2024 1:3 7pm AMA (advanced maternal age) multigravida 35+ November 25, 2024 9:42am Anxiety November 25, 2024 9: 42am Genital herpes affecting [facility] 2024 9:42am Gestational diabetes November 25, 2024 9 :42am History of gestational diabe brandt mellitus (GDM) in prior , currentl November 25, 2024 9:42am Insulin resistance complicating pregnanc y November 25, 2024 9:42am Obesity affecting November 25, 2024 9:42am November 25, 2024 9: 42am Supervision of high-risk [facility] 2024 9:42am UTI (urinary tract infection) during pre gnancy November 25, 2024 9:42am AMA (advanced maternal age) multigravida 35+ December 22, 2024 1:59pm Anxiety December 22, 2024 1:59pm Genital herpes affecting [facility] mb2024 1:59pm Gestational diabetes December 22 1:59pm History of gestational diabe brandt mellitus (GDM) in prior , currentl December 22, 2024 1:59pm Insulin resistance complicating pregnanc y December 22, 2024 1:59pm Obesity affecting December 222024 1:59pm December 22, 2024 1:59pm Supervision of high-risk [facility] mb2024 1:59pm UTI (urinary tract infection) during pre gnancy December 22, 2024 1:59pm AMA (advanced maternal age) multigravida 35+ December 28, 2024 3:08pm Anxiety December 28, 2024 3:08pm Genital herpes affecting [facility] 2024 3:08pm Gestational diabetes December 28 3:08pm History of gestational diabe brandt mellitus (GDM) in prior , currentl December 28, 2024 3:08pm Insulin resistance complicating pregnanc y December 28, 2024 3:08pm Obesity affecting December 282024 3:08pm December 28, 2024 3:08pm Supervision of high-risk [facility] 2024 3:08pm Uterine size date discrepancy December 28, 2024 3:08pm AMA (advanced maternal age) multigravida 35+ January 06, 2025 8:43am Anxiety January 06, 2025 8:43am Genital herpes affecting [facility] 2024 8:43am Gestational diabetes January 06 8:43am History of gestational diabe brandt mellitus (GDM) in prior , currentl January 06, 2025 8:43am Insulin resistance complicating pregnanc y January 06, 2025 8:43am Obesity affecting January 062024 8:43am January 06, 2025 8:43am Supervision of high-risk [facility]2024 8:43am Uterine size date discrepancy January 06, 2025 8:43am UTI (urinary tract infection) during pre gnancy January 06, 2025 8:43am AMA (advanced maternal age) multigravida 35+ January 11, 2025 8:56am Anxiety January 11, 2025 8:56am Genital herpes affecting [facility] 2024 8:56am Gestational diabetes January 11 8:56am History of gestational diabe brandt mellitus (GDM) in prior , currentl January 11, 2025 8:56am Insulin resistance complicating pregnanc y January 11, 2025 8:56am Obesity affecting January 112024 8:56am January 11, 2025 8:56am Supervision of high-risk [facility] 2024 8:56am Uterine size date discrepancy January 11, 2025 8:56am UTI (urinary tract infection) during pre gnancy January 11, 2025 8:56am AMA (advanced maternal age) multigravida 35+ January 14, 2025 8:03am Anxiety January 14, 2025 8: 03am Genital herpes affecting [facility] 2024 8:03am Gestational diabetes January 14, 2025 8 :03am History of gestational diabe brandt mellitus (GDM) in prior , currentl January 14, 2025 8:03am Insulin resistance complicating pregnanc y January 14, 2025 8:03am Obesity affecting January 14, 2025 8:03am January 14, 2025 8: 03am Supervision of high-risk [facility] 2024 8:03am Uterine size date discrepancy January 14, 2025 8:03am UTI (urinary tract infection) during pre gnancy January 14, 2025 8:03am Chief Complaint Admit Date 18wk ob September 27, 2024 10:1 9am 22wk ob October 25, 2024 10:1 0am Re-est Gestational Diabetes October 28, 025 1:37pm 26wk ob/glucose November 25, 2024 9: 42am 30wk ob December 22, 2024 1:59pm increased mood swings & concerns -per sm December 28, 2024 3:08pm 32 wk ob January 06, 2025 8:43am 33wk NST ONLY January 11, 2025 8:56am 33wk ob/nst January 14, 2025 8: 03am 34wk ob/nst January 17, 2025 9: 55am Reason for Visit Admit Date AMA (advanced maternal age) multigravida 35+ September 27, 2024 10:19am Anxiety September 27, 2024 10:1 9am Genital herpes affecting September 27, 2024 10:19am History of gestational diabe brandt mellitus (GDM) in prior , currentl September 27, 2024 10:19am Insulin resistance complicating pregnanc y September 27, 2024 10:19am Obesity affecting September 27, 2 025 10:19am September 27, 2024 10:1 9am Supervision of high-risk September 27, 2024 10:19am UTI (urinary tract infection) during pre gnancy September 27, 2024 10:19am AMA (advanced maternal age) multigravida 35+ October 25, 2024 10:10am Anxiety October 25, 2024 10:1 0am Genital herpes affecting October 25, 2024 10:10am History of gestational diabe brandt mellitus (GDM) in prior , currentl October 25, 2024 10:10am Insulin resistance complicating pregnanc y October 25, 2024 10:10am Obesity affecting October 25, 025 10:10am October 25, 2024 10:1 0am Supervision of high-risk October 25, 2024 10:10am UTI (urinary tract infection) during pre gnancy October 25, 2024 10:10am Gestational diabetes October 28, 2024 1:3 7pm AMA (advanced maternal age) multigravida 35+ November 25, 2024 9:42am Anxiety November 25, 2024 9: 42am Genital herpes affecting [facility] 2024 9:42am Gestational diabetes November 25, 2024 9 :42am History of gestational diabe brandt mellitus (GDM) in prior , currentl November 25, 2024 9:42am Insulin resistance complicating pregnanc y November 25, 2024 9:42am Obesity affecting November 25, 2024 9:42am November 25, 2024 9: 42am Supervision of high-risk [facility] 2024 9:42am UTI (urinary tract infection) during pre gnancy November 25, 2024 9:42am AMA (advanced maternal age) multigravida 35+ December 22, 2024 1:59pm Anxiety December 22, 2024 1:59pm Genital herpes affecting [facility] 2024 1:59pm Gestational diabetes December 22 1:59pm History of gestational diabe brandt mellitus (GDM) in prior , currentl December 22, 2024 1:59pm Insulin resistance complicating pregnanc y December 22, 2024 1:59pm Obesity affecting December 222024 1:59pm December 22, 2024 1:59pm Supervision of high-risk [facility] mb2024 1:59pm UTI (urinary tract infection) during pre gnancy December 22, 2024 1:59pm AMA (advanced maternal age) multigravida 35+ December 28, 2024 3:08pm Anxiety December 28, 2024 3:08pm Genital herpes affecting [facility] 2024 3:08pm Gestational diabetes December 28 3:08pm History of gestational diabe brandt mellitus (GDM) in prior , currentl December 28, 2024 3:08pm Insulin resistance complicating pregnanc y December 28, 2024 3:08pm Obesity affecting December 282024 3:08pm December 28, 2024 3:08pm Supervision of high-risk [facility] 2024 3:08pm Uterine size date discrepancy December 28, 2024 3:08pm AMA (advanced maternal age) multigravida 35+ January 06, 2025 8:43am Anxiety January 06, 2025 8:43am Genital herpes affecting [facility] 2024 8:43am Gestational diabetes January 06 8:43am History of gestational diabe brandt mellitus (GDM) in prior , currentl January 06, 2025 8:43am Insulin resistance complicating pregnanc y January 06, 2025 8:43am Obesity affecting January 062024 8:43am January 06, 2025 8:43am Supervision of high-risk [facility] 2024 8:43am Uterine size date discrepancy January 06, 2025 8:43am UTI (urinary tract infection) during pre gnancy January 06, 2025 8:43am AMA (advanced maternal age) multigravida 35+ January 11, 2025 8:56am Anxiety January 11, 2025 8:56am Genital herpes affecting [facility] 2024 8:56am Gestational diabetes January 11 8:56am History of gestational diabe brandt mellitus (GDM) in prior , currentl January 11, 2025 8:56am Insulin resistance complicating pregnanc y January 11, 2025 8:56am Obesity affecting January 112024 8:56am January 11, 2025 8:56am Supervision of high-risk [facility] 2024 8:56am Uterine size date discrepancy January 11, 2025 8:56am UTI (urinary tract infection) during pre gnancy January 11, 2025 8:56am AMA (advanced maternal age) multigravida 35+ January 14, 2025 8:03am Anxiety January 14, 2025 8: 03am Genital herpes affecting [facility] 2024 8:03am Gestational diabetes January 14, 2025 8 :03am History of gestational diabe brandt mellitus (GDM) in prior , currentl January 14, 2025 8:03am Insulin resistance complicating pregnanc y January 14, 2025 8:03am Obesity affecting January 14, 2025 8:03am January 14, 2025 8: 03am Supervision of high-risk [facility] 2024 8:03am Uterine size date discrepancy January 14, 2025 8:03am UTI (urinary tract infection) during pre gnancy January 14, 2025 8:03am AMA (advanced maternal age) multigravida 35+ January 17, 2025 9:55am Anxiety January 17, 2025 9: 55am Genital herpes affecting [facility] 2024 9:55am Gestational diabetes January 17, 2025 9 :55am History of gestational diabe brandt mellitus (GDM) in prior , currentl January 17, 2025 9:55am Insulin resistance complicating pregnanc y January 17, 2025 9:55am Obesity affecting January 17, 2025 9:55am January 17, 2025 9: 55am Supervision of high-risk [facility] 2024 9:55am Uterine size date discrepancy January 17, 2025 9:55am UTI (urinary tract infection) during pre gnancy January 17, 2025 9:55am Chief Complaint Admit Date 22wk ob October 25, 2024 10:1 0am Re-est Gestational Diabetes October 28, 2 025 1:37pm 26wk ob/glucose November 25, 2024 9: 42am 30wk ob December 22, 2024 1:59pm increased mood swings & concerns -per sm December 28, 2024 3:08pm 32 wk ob January 06, 2025 8:43am 33wk NST ONLY January 11, 2025 8:56am 33wk ob/nst January 14, 2025 8: 03am 34wk ob/nst January 17, 2025 9: 55am 34wk NST ONLY January 20, 2025 2: 00pm 35wk ob/nst January 24, 2025 1 0:18am 35wk NST ONLY January 27, 2025 1 :57pm BIOPHYSICAL PROFILE January 27, 2025 2 :40pm BIOPHYSICAL PROFILE January 27, 2025 5 :45pm 36wk ob/nst January 31, 2025 8 :37am 36wk NST ONLY February 03, 2025 1 :36pm 37wk ob/nst February 07, 2025 8 :22am Reason for Visit Admit Date AMA (advanced maternal age) multigravida 35+ October 25, 2024 10:10am Anxiety October 25, 2024 10:1 0am Genital herpes affecting October 25, 2024 10:10am History of gestational diabe brandt mellitus (GDM) in prior , currentl October 25, 2024 10:10am Obesity affecting October 25, 025 10:10am October 25, 2024 10:1 0am Supervision of high-risk October 25, 2024 10:10am UTI (urinary tract infection) during pre gnancy October 25, 2024 10:10am Insulin resistance complicating pregnanc y October 25, 2024 10:10am Gestational diabetes October 28, 2024 1:3 7pm AMA (advanced maternal age) multigravida 35+ November 25, 2024 9:42am Anxiety November 25, 2024 9: 42am Genital herpes affecting [facility] 2024 9:42am Gestational diabetes November 25, 2024 9 :42am History of gestational diabe brandt mellitus (GDM) in prior , currentl November 25, 2024 9:42am Obesity affecting November 25, 2024 9:42am November 25, 2024 9: 42am Supervision of high-risk [facility] 2024 9:42am UTI (urinary tract infection) during pre gnancy November 25, 2024 9:42am Insulin resistance complicating pregnanc y November 25, 2024 9:42am AMA (advanced maternal age) multigravida 35+ December 22, 2024 1:59pm Anxiety December 22, 2024 1:59pm Genital herpes affecting [facility]2024 1:59pm Gestational diabetes December 22 1:59pm History of gestational diabe brandt mellitus (GDM) in prior , currentl December 22, 2024 1:59pm Obesity affecting December 222024 1:59pm December 22, 2024 1:59pm Supervision of high-risk [facility] 2024 1:59pm UTI (urinary tract infection) during pre gnancy December 22, 2024 1:59pm Insulin resistance complicating pregnanc y December 22, 2024 1:59pm AMA (advanced maternal age) multigravida 35+ December 28, 2024 3:08pm Anxiety December 28, 2024 3:08pm Genital herpes affecting [facility] 2024 3:08pm Gestational diabetes December 28 3:08pm History of gestational diabe brandt mellitus (GDM) in prior , currentl December 28, 2024 3:08pm Obesity affecting December 282024 3:08pm December 28, 2024 3:08pm Supervision of high-risk [facility] 2024 3:08pm Uterine size date discrepancy December 28, 2024 3:08pm Insulin resistance complicating pregnanc y December 28, 2024 3:08pm AMA (advanced maternal age) multigravida 35+ January 06, 2025 8:43am Anxiety January 06, 2025 8:43am Genital herpes affecting [facility] 2024 8:43am Gestational diabetes January 06 8:43am History of gestational diabe brandt mellitus (GDM) in prior , currentl January 06, 2025 8:43am Obesity affecting January 062024 8:43am January 06, 2025 8:43am Supervision of high-risk [facility] 2024 8:43am Uterine size date discrepancy January 06, 2025 8:43am UTI (urinary tract infection) during pre gnancy January 06, 2025 8:43am Insulin resistance complicating pregnanc y January 06, 2025 8:43am AMA (advanced maternal age) multigravida 35+ January 11, 2025 8:56am Anxiety January 11, 2025 8:56am Genital herpes affecting [facility] 2024 8:56am Gestational diabetes January 11 8:56am History of gestational diabe brandt mellitus (GDM) in prior , currentl January 11, 2025 8:56am Obesity affecting January 112024 8:56am January 11, 2025 8:56am Supervision of high-risk [facility] 2024 8:56am Uterine size date discrepancy January 11, 2025 8:56am UTI (urinary tract infection) during pre gnancy January 11, 2025 8:56am Insulin resistance complicating pregnanc y January 11, 2025 8:56am AMA (advanced maternal age) multigravida 35+ January 14, 2025 8:03am Anxiety January 14, 2025 8: 03am Genital herpes affecting [facility] 2024 8:03am Gestational diabetes January 14, 2025 8 :03am History of gestational diabe brandt mellitus (GDM) in prior , currentl January 14, 2025 8:03am Obesity affecting January 14, 2025 8:03am January 14, 2025 8: 03am Supervision of high-risk [facility] 2024 8:03am Uterine size date discrepancy January 14, 2025 8:03am UTI (urinary tract infection) during pre gnancy January 14, 2025 8:03am Insulin resistance complicating pregnanc y January 14, 2025 8:03am AMA (advanced maternal age) multigravida 35+ January 17, 2025 9:55am Anxiety January 17, 2025 9: 55am Genital herpes affecting [facility] 2024 9:55am Gestational diabetes January 17, 2025 9 :55am History of gestational diabe brandt mellitus (GDM) in prior , currentl January 17, 2025 9:55am Obesity affecting January 17, 2025 9:55am January 17, 2025 9: 55am Supervision of high-risk [facility] 2024 9:55am Uterine size date discrepancy January 17, 2025 9:55am UTI (urinary tract infection) during pre gnancy January 17, 2025 9:55am Insulin resistance complicating pregnanc y January 17, 2025 9:55am AMA (advanced maternal age) multigravida 35+ January 20, 2025 2:00pm Anxiety January 20, 2025 2: 00pm Genital herpes affecting [facility] 2024 2:00pm Gestational diabetes January 20, 2025 2 :00pm History of gestational diabe brandt mellitus (GDM) in prior , currentl January 20, 2025 2:00pm Obesity affecting January 20, 2025 2:00pm January 20, 2025 2: 00pm Supervision of high-risk [facility] 2024 2:00pm Uterine size date discrepancy January 20, 2025 2:00pm UTI (urinary tract infection) during pre gnancy January 20, 2025 2:00pm Insulin resistance complicating pregnanc y January 20, 2025 2:00pm AMA (advanced maternal age) multigravida 35+ January 24, 2025 10:18am Anxiety January 24, 2025 1 0:18am Genital herpes affecting [facility] 2024 10:18am Gestational diabetes January 24, 2025 10:18am History of gestational diabe brandt mellitus (GDM) in prior , currentl January 24, 2025 10:18am Obesity affecting January 10:18am January 24, 2025 1 0:18am Supervision of high-risk [facility] 2024 10:18am Uterine size date discrepancy January 24, 2025 10:18am UTI (urinary tract infection) during pre gnancy January 24, 2025 10:18am Insulin resistance complicating pregnanc y January 24, 2025 10:18am AMA (advanced maternal age) multigravida 35+ January 27, 2025 1:57pm Anxiety January 27, 2025 1 :57pm Genital herpes affecting [facility] 2024 1:57pm Gestational diabetes January 27, 2025 1:57pm History of gestational diabe brandt mellitus (GDM) in prior , currentl January 27, 2025 1:57pm Obesity affecting January 1:57pm January 27, 2025 1 :57pm Supervision of high-risk [facility] 2024 1:57pm Uterine size date discrepancy January 27, 2025 1:57pm UTI (urinary tract infection) during pre gnancy January 27, 2025 1:57pm Insulin resistance complicating pregnanc y January 27, 2025 1:57pm AMA (advanced maternal age) multigravida 35+ January 27, 2025 2:40pm Anxiety January 27, 2025 2 :40pm Genital herpes affecting [facility] 2024 2:40pm Gestational diabetes January 27, 2025 2:40pm History of gestational diabe brandt mellitus (GDM) in prior , currentl January 27, 2025 2:40pm Obesity affecting January 2:40pm January 27, 2025 2 :40pm Supervision of high-risk [facility] 2024 2:40pm Uterine size date discrepancy January 27, 2025 2:40pm UTI (urinary tract infection) during pre gnancy January 27, 2025 2:40pm Insulin resistance complicating pregnanc y January 27, 2025 2:40pm AMA (advanced maternal age) multigravida 35+ January 31, 2025 8:37am Anxiety January 31, 2025 8 :37am Genital herpes affecting [facility] 2024 8:37am Gestational diabetes January 31, 2025 8:37am History of gestational diabe brandt mellitus (GDM) in prior , currentl January 31, 2025 8:37am Obesity affecting January 8:37am January 31, 2025 8 :37am Supervision of high-risk [facility] 2024 8:37am Uterine size date discrepancy January 31, 2025 8:37am UTI (urinary tract infection) during pre gnancy January 31, 2025 8:37am Insulin resistance complicating pregnanc y January 31, 2025 8:37am AMA (advanced maternal age) multigravida 35+ February 03, 2025 1:36pm Anxiety February 03, 2025 1 :36pm Genital herpes affecting [facility] 2024 1:36pm Gestational diabetes February 03, 2025 1:36pm History of gestational diabe brandt mellitus (GDM) in prior , currentl February 03, 2025 1:36pm Obesity affecting January 1:36pm February 03, 2025 1 :36pm Supervision of high-risk [facility] 2024 1:36pm Uterine size date discrepancy February 03, 2025 1:36pm UTI (urinary tract infection) during pre gnancy February 03, 2025 1:36pm Insulin resistance complicating pregnanc y February 03, 2025 1:36pm AMA (advanced maternal age) multigravida 35+ February 07, 2025 8:22am Anxiety February 07, 2025 8 :22am Genital herpes affecting [facility] 2024 8:22am Gestational diabetes February 07, 2025 8:22am History of gestational diabe brandt mellitus (GDM) in prior , currentl February 07, 2025 8:22am Obesity affecting January 8:22am February 07, 2025 8 :22am Supervision of high-risk [facility] 2024 8:22am Uterine size date discrepancy February 07, 2025 8:22am UTI (urinary tract infection) during pre gnancy February 07, 2025 8:22am Chief Complaint Admit Date 22wk ob October 25, 2024 10:1 0am Re-est Gestational Diabetes October 28, 2 025 1:37pm 26wk ob/glucose November 25, 2024 9: 42am 30wk ob December 22, 2024 1:59pm increased mood swings & concerns -per sm December 28, 2024 3:08pm 32 wk ob January 06, 2025 8:43am 33wk NST ONLY January 11, 2025 8:56am 33wk ob/nst January 14, 2025 8: 03am 34wk ob/nst January 17, 2025 9: 55am 34wk NST ONLY January 20, 2025 2: 00pm 35wk ob/nst January 24, 2025 1 0:18am 35wk NST ONLY January 27, 2025 1 :57pm BIOPHYSICAL PROFILE January 27, 2025 2 :40pm BIOPHYSICAL PROFILE January 27, 2025 5 :45pm 36wk ob/nst January 31, 2025 8 :37am 36wk NST ONLY February 03, 2025 1 :36pm 37wk ob/nst February 07, 2025 8 :22am 37wk NST ONLY February 10, 2025 1 :33pm 38wk ob/nst February 14, 2025 8 :44am 38wk NST ONLY February 17, 2025 1 :39pm Reason for Visit Admit Date AMA (advanced maternal age) multigravida 35+ October 25, 2024 10:10am Anxiety October 25, 2024 10:1 0am Genital herpes affecting October 25, 2024 10:10am History of gestational diabe brandt mellitus (GDM) in prior , currentl October 25, 2024 10:10am Obesity affecting October 25, 10:10am October 25, 2024 10:1 0am Supervision of high-risk October 25, 2024 10:10am UTI (urinary tract infection) during pre gnancy October 25, 2024 10:10am Insulin resistance complicating pregnanc y October 25, 2024 10:10am Gestational diabetes October 28, 2024 1:3 7pm AMA (advanced maternal age) multigravida 35+ November 25, 2024 9:42am Anxiety November 25, 2024 9: 42am Genital herpes affecting [facility] 2024 9:42am Gestational diabetes November 25, 2024 9 :42am History of gestational diabe brandt mellitus (GDM) in prior , currentl November 25, 2024 9:42am Obesity affecting November 25, 2024 9:42am November 25, 2024 9: 42am Supervision of high-risk [facility] 2024 9:42am UTI (urinary tract infection) during pre gnancy November 25, 2024 9:42am Insulin resistance complicating pregnanc y November 25, 2024 9:42am AMA (advanced maternal age) multigravida 35+ December 22, 2024 1:59pm Anxiety December 22, 2024 1:59pm Genital herpes affecting [id number] 1:59pm Gestational diabetes December 22 1:59pm History of gestational diabe brandt mellitus (GDM) in prior , currentl December 22, 2024 1:59pm Obesity affecting December 222024 1:59pm December 22, 2024 1:59pm Supervision of high-risk [facility] 2024 1:59pm UTI (urinary tract infection) during pre gnancy December 22, 2024 1:59pm Insulin resistance complicating pregnanc y December 22, 2024 1:59pm AMA (advanced maternal age) multigravida 35+ December 28, 2024 3:08pm Anxiety December 28, 2024 3:08pm Genital herpes affecting [facility] 2024 3:08pm Gestational diabetes December 28 3:08pm History of gestational diabe brandt mellitus (GDM) in prior , currentl December 28, 2024 3:08pm Obesity affecting December 282024 3:08pm December 28, 2024 3:08pm Supervision of high-risk [facility] 2024 3:08pm Uterine size date discrepancy December 28, 2024 3:08pm Insulin resistance complicating pregnanc y December 28, 2024 3:08pm AMA (advanced maternal age) multigravida 35+ January 06, 2025 8:43am Anxiety January 06, 2025 8:43am Genital herpes affecting [facility] 2024 8:43am Gestational diabetes January 06 8:43am History of gestational diabe brandt mellitus (GDM) in prior , currentl January 06, 2025 8:43am Obesity affecting January 062024 8:43am January 06, 2025 8:43am Supervision of high-risk [facility] 2024 8:43am Uterine size date discrepancy January 06, 2025 8:43am UTI (urinary tract infection) during pre gnancy January 06, 2025 8:43am Insulin resistance complicating pregnanc y January 06, 2025 8:43am AMA (advanced maternal age) multigravida 35+ January 11, 2025 8:56am Anxiety January 11, 2025 8:56am Genital herpes affecting [facility] 2024 8:56am Gestational diabetes January 11 8:56am History of gestational diabe brandt mellitus (GDM) in prior , currentl January 11, 2025 8:56am Obesity affecting January 112024 8:56am January 11, 2025 8:56am Supervision of high-risk [facility] 2024 8:56am Uterine size date discrepancy January 11, 2025 8:56am UTI (urinary tract infection) during pre gnancy January 11, 2025 8:56am Insulin resistance complicating pregnanc y January 11, 2025 8:56am AMA (advanced maternal age) multigravida 35+ January 14, 2025 8:03am Anxiety January 14, 2025 8: 03am Genital herpes affecting [facility] 2024 8:03am Gestational diabetes January 14, 2025 8 :03am History of gestational diabe brandt mellitus (GDM) in prior , currentl January 14, 2025 8:03am Obesity affecting January 14, 2025 8:03am January 14, 2025 8: 03am Supervision of high-risk [facility] 2024 8:03am Uterine size date discrepancy January 14, 2025 8:03am UTI (urinary tract infection) during pre gnancy January 14, 2025 8:03am Insulin resistance complicating pregnanc y January 14, 2025 8:03am AMA (advanced maternal age) multigravida 35+ January 17, 2025 9:55am Anxiety January 17, 2025 9: 55am Genital herpes affecting [facility] 2024 9:55am Gestational diabetes January 17, 2025 9 :55am History of gestational diabe brandt mellitus (GDM) in prior , currentl January 17, 2025 9:55am Obesity affecting January 17, 2025 9:55am January 17, 2025 9: 55am Supervision of high-risk [facility] 2024 9:55am Uterine size date discrepancy January 17, 2025 9:55am UTI (urinary tract infection) during pre gnancy January 17, 2025 9:55am Insulin resistance complicating pregnanc y January 17, 2025 9:55am AMA (advanced maternal age) multigravida 35+ January 20, 2025 2:00pm Anxiety January 20, 2025 2: 00pm Genital herpes affecting [facility] 2024 2:00pm Gestational diabetes January 20, 2025 2 :00pm History of gestational diabe brandt mellitus (GDM) in prior , currentl January 20, 2025 2:00pm Obesity affecting January 20, 2025 2:00pm January 20, 2025 2: 00pm Supervision of high-risk [facility] 2024 2:00pm Uterine size date discrepancy January 20, 2025 2:00pm UTI (urinary tract infection) during pre gnancy January 20, 2025 2:00pm Insulin resistance complicating pregnanc y January 20, 2025 2:00pm AMA (advanced maternal age) multigravida 35+ January 24, 2025 10:18am Anxiety January 24, 2025 1 0:18am Genital herpes affecting [facility] 2024 10:18am Gestational diabetes January 24, 2025 10:18am History of gestational diabe brandt mellitus (GDM) in prior , currentl January 24, 2025 10:18am Obesity affecting January 10:18am January 24, 2025 1 0:18am Supervision of high-risk [facility] 2024 10:18am Uterine size date discrepancy January 24, 2025 10:18am UTI (urinary tract infection) during pre gnancy January 24, 2025 10:18am Insulin resistance complicating pregnanc y January 24, 2025 10:18am AMA (advanced maternal age) multigravida 35+ January 27, 2025 1:57pm Anxiety January 27, 2025 1 :57pm Genital herpes affecting [facility] 2024 1:57pm Gestational diabetes January 27, 2025 1:57pm History of gestational diabe brandt mellitus (GDM) in prior , currentl January 27, 2025 1:57pm Obesity affecting January 1:57pm January 27, 2025 1 :57pm Supervision of high-risk [facility] 2024 1:57pm Uterine size date discrepancy January 27, 2025 1:57pm UTI (urinary tract infection) during pre gnancy January 27, 2025 1:57pm Insulin resistance complicating pregnanc y January 27, 2025 1:57pm AMA (advanced maternal age) multigravida 35+ January 27, 2025 2:40pm Anxiety January 27, 2025 2 :40pm Genital herpes affecting [facility] 2024 2:40pm Gestational diabetes January 27, 2025 2:40pm History of gestational diabe brandt mellitus (GDM) in prior , currentl January 27, 2025 2:40pm Obesity affecting January 2:40pm January 27, 2025 2 :40pm Supervision of high-risk [facility] 2024 2:40pm Uterine size date discrepancy January 27, 2025 2:40pm UTI (urinary tract infection) during pre gnancy January 27, 2025 2:40pm Insulin resistance complicating pregnanc y January 27, 2025 2:40pm AMA (advanced maternal age) multigravida 35+ January 31, 2025 8:37am Anxiety January 31, 2025 8 :37am Genital herpes affecting [facility] 2024 8:37am Gestational diabetes January 31, 2025 8:37am History of gestational diabe brandt mellitus (GDM) in prior , currentl January 31, 2025 8:37am Obesity affecting January 8:37am January 31, 2025 8 :37am Supervision of high-risk [facility] 2024 8:37am Uterine size date discrepancy January 31, 2025 8:37am UTI (urinary tract infection) during pre gnancy January 31, 2025 8:37am Insulin resistance complicating pregnanc y January 31, 2025 8:37am AMA (advanced maternal age) multigravida 35+ February 03, 2025 1:36pm Anxiety February 03, 2025 1 :36pm Genital herpes affecting [facility] 2024 1:36pm Gestational diabetes February 03, 2025 1:36pm History of gestational diabe brandt mellitus (GDM) in prior , currentl February 03, 2025 1:36pm Obesity affecting January 1:36pm February 03, 2025 1 :36pm Supervision of high-risk [facility] 2024 1:36pm Uterine size date discrepancy February 03, 2025 1:36pm UTI (urinary tract infection) during pre gnancy February 03, 2025 1:36pm Insulin resistance complicating pregnanc y February 03, 2025 1:36pm AMA (advanced maternal age) multigravida 35+ February 07, 2025 8:22am Anxiety February 07, 2025 8 :22am Genital herpes affecting [facility] 2024 8:22am Gestational diabetes February 07, 2025 8:22am History of gestational diabe brandt mellitus (GDM) in prior , currentl February 07, 2025 8:22am Obesity affecting January 8:22am February 07, 2025 8 :22am Supervision of high-risk [facility] 2024 8:22am Uterine size date discrepancy February 07, 2025 8:22am UTI (urinary tract infection) during pre gnancy February 07, 2025 8:22am AMA (advanced maternal age) multigravida 35+ February 10, 2025 1:33pm Anxiety February 10, 2025 1 :33pm Genital herpes affecting [facility] 2024 1:33pm Gestational diabetes February 10, 2025 1:33pm History of gestational diabe brandt mellitus (GDM) in prior , currentl February 10, 2025 1:33pm Obesity affecting January 1:33pm February 10, 2025 1 :33pm Supervision of high-risk [facility] 2024 1:33pm Uterine size date discrepancy February 10, 2025 1:33pm UTI (urinary tract infection) during pre gnancy February 10, 2025 1:33pm AMA (advanced maternal age) multigravida 35+ February 14, 2025 8:44am Anxiety February 14, 2025 8 :44am Genital herpes affecting [facility] 2024 8:44am Gestational diabetes February 14, 2025 8:44am History of gestational diabe brandt mellitus (GDM) in prior , currentl February 14, 2025 8:44am Obesity affecting February 8:44am February 14, 2025 8 :44am Supervision of high-risk [facility] 2024 8:44am Uterine size date discrepancy February 14, 2025 8:44am UTI (urinary tract infection) during pre gnancy February 14, 2025 8:44am AMA (advanced maternal age) multigravida 35+ February 17, 2025 1:39pm Anxiety February 17, 2025 1 :39pm Genital herpes affecting [facility] 2024 1:39pm Gestational diabetes February 17, 2025 1:39pm History of gestational diabe brandt mellitus (GDM) in prior , currentl February 17, 2025 1:39pm Obesity affecting February 1:39pm February 17, 2025 1 :39pm Supervision of high-risk [facility] 2024 1:39pm Uterine size date discrepancy February 17, 2025 1:39pm UTI (urinary tract infection) during pre gnancy February 17, 2025 1:39pm Family History No Family History Records Found Relationship Condition Age at Onset Recorded Date/T theresa aunt Malignant neoplasm of breast 40 grandfather Cardiac disease Unknown Diabetes mellitus Unknown mother Diabetes mellitus Unknown Summary Purpose Advance Directives No Advanced Directives Records FoundNo Advanced Directives Records Found Additional Source Comments Care Teams (unrecognized sec tion and content) Team Status: Active Member Role Status Dates Dr. Karen Chacko MD Family Provider Active Dr. Karen Chacko MD Primary Care Provider Active Team Status: Inactive Member Role Status Dates Dr. Karen Chacko MD Primary Care Provider Active Start: July 28, 2024 End: July 28, 2024 Dr. Karen Chacko MD Referring Provider Active St art: July 28, 2024 End: July 28, 2024 Dr. Holly Spear MD Attending Provider Active Start: July 28, 2024 End: July 28, 2024 Team Status: Inactive Member Role Status Dates Dr. Karen Chacko MD Primary Care Provider Active Start: July 28, 2024 End: July 28, 2024 Dr. Holly Spear MD Attending Provider Active Start: July 28, 2024 End: July 28, 2024 Dr. Holly Spear MD Referring Provider Active Start: July 28, 2024 End: July 28, 2024 Team Status: Inactive Member Role Status Dates Dr. Karen Chacko MD Primary Care Provider Active Start: August 13, 2024 End: August 13, 2024 Dr. Karen Chacko MD Referring Provider Active St art: August 13, 2024 End: August 13, 2024 Alycia Torres CNM Attending Provider Active S tart: August 13, 2024 End: August 13, 2024 Team Status: Inactive Member Role Status Dates Dr. Kaern Chacko MD Primary Care Provider Active Start: August 13, 2024 End: August 13, 2024 Alycia Torres CNM Attending Provider Active S tart: August 13, 2024 End: August 13, 2024 Alycia Torres CNM Referring Provider Active S tart: August 13, 2024 End: August 13, 2024 Team Status: Inactive Member Role Status Dates Dr. Karen Chacko MD Primary Care Provider Active Start: August 30, 2024 End: August 30, 2024 Dr. Karen Chacko MD Referring Provider Active St art: August 30, 2024 End: August 30, 2024 Dr. Sarah Harris DO Attending Provider Activ e Start: August 30, 2024 End: August 30, 2024 Team Status: Active Member Role Status Dates Dr. Karen Chacko MD Primary Care Provider Active Start: August 30, 2024 Dr. Sarah Harris DO Attending Provider Activ e Start: August 30, 2024 Dr. Sarah Harris DO Referring Provider Activ e Start: August 30, 2024 Team Status: Active Member Role Status Dates Dr. aKren Chacko MD Primary Care Provider Active Team Status: Inactive Member Role Status Dates Dr. Karen Chacko MD Primary Care Provider Active Start: August 30, 2024 End: August 30, 2024 Dr. Sarah Harris , Attending Provider Activ e Start: August 30, 2024 End: August 30, 2024 Dr. Sarah Harris DO Referring Provider Activ e Start: August 30, 2024 End: August 30, 2024 Team Status: Inactive Member Role Status Dates Dr. Karen Chacko MD Primary Care Provider Active Start: September 08, 2024 End: September 08, 2024 Dr. Holly Spear MD Attending Provider Active Start: September 08, 2024 End: September 08, 2024 Dr. Holly Spear MD Referring Provider Active Start: September 08, 2024 End: September 08, 2024 Team Status: Inactive Member Role Status Dates Dr. Karen Chacko MD Primary Care Provider Active Start: September 27, 2024 End: September 27, 2024 Dr. Karen Chacko MD Referring Provider Active St art: September 27, 2024 End: September 27, 2024 Alycia Torres CNM Attending Provider Active S tart: September 27, 2024 End: September 27, 2024 Team Status: Inactive Member Role Status Dates Dr. Karen Chacko MD Primary Care Provider Active Start: September 27, 2024 End: September 27, 2024 Alycia Torres CNM Attending Provider Active S tart: September 27, 2024 End: September 27, 2024 Alycia Torres CNM Referring Provider Active S tart: September 27, 2024 End: September 27, 2024 Team Status: Active Member Role/Relationship Status Dates Dr. Karen Chacko MD Primary Care Provider Active Team Status: Inactive Member Role/Relationship Status Dates Dr. Karen Chacko MD Primary Care Provider Active Start: July 28, 2024 End: July 28, 2024 Dr. Karen Chacko MD Referring Provider Active St art: July 28, 2024 End: July 28, 2024 Dr. Holly Spear MD Attending Provider Active Start: July 28, 2024 End: July 28, 2024 Team Status: Inactive Member Role/Relationship Status Dates Dr. Karen Chacko MD Primary Care Provider Active Start: July 28, 2024 End: July 28, 2024 Dr. Holly Spear MD Attending Provider Active Start: July 28, 2024 End: July 28, 2024 Dr. Holly Spear MD Referring Provider Active Start: July 28, 2024 End: July 28, 2024 Team Status: Inactive Member Role/Relationship Status Dates Dr. Karen Chacko MD Primary Care Provider Active Start: August 13, 2024 End: August 13, 2024 Dr. Karen Chacko MD Referring Provider Active St art: August 13, 2024 End: August 13, 2024 Alycia Torres CNM Attending Provider Active S tart: August 13, 2024 End: August 13, 2024 Team Status: Inactive Member Role/Relationship Status Dates Dr. Karen Chacko MD Primary Care Provider Active Start: August 13, 2024 End: August 13, 2024 Alycia Torres CNM Attending Provider Active S tart: August 13, 2024 End: August 13, 2024 Alycia Torres CNM Referring Provider Active S tart: August 13, 2024 End: August 13, 2024 Team Status: Inactive Member Role/Relationship Status Dates Dr. Karen Chacko MD Primary Care Provider Active Start: August 30, 2024 End: August 30, 2024 Dr. Karen Chacko MD Referring Provider Active St art: August 30, 2024 End: August 30, 2024 Dr. Sarah Harris DO Attending Provider Activ e Start: August 30, 2024 End: August 30, 2024 Team Status: Inactive Member Role/Relationship Status Dates Dr. Karen Chacko MD Primary Care Provider Active Start: August 30, 2024 End: August 30, 2024 Dr. Sarah Harris DO Attending Provider Activ e Start: August 30, 2024 End: August 30, 2024 Dr. Sarah Harris DO Referring Provider Activ e Start: August 30, 2024 End: August 30, 2024 Team Status: Inactive Member Role/Relationship Status Dates Dr. Karen Chacko MD Primary Care Provider Active Start: September 08, 2024 End: September 08, 2024 Dr. Holly Spear MD Attending Provider Active Start: September 08, 2024 End: September 08, 2024 Dr. Holly Spear MD Referring Provider Active Start: September 08, 2024 End: September 08, 2024 Team Status: Inactive Member Role/Relationship Status Dates Dr. Karen Chacko MD Primary Care Provider Active Start: September 27, 2024 End: September 27, 2024 Dr. Karen Chacko MD Referring Provider Active St art: September 27, 2024 End: September 27, 2024 Alycia Torres CNM Attending Provider Active S tart: September 27, 2024 End: September 27, 2024 Team Status: Inactive Member Role/Relationship Status Dates Dr. Karen Chacko MD Primary Care Provider Active Start: September 27, 2024 End: September 27, 2024 Alycia Torres CNM Attending Provider Active S tart: September 27, 2024 End: September 27, 2024 Alycia Torres CNM Referring Provider Active S tart: September 27, 2024 End: September 27, 2024 Team Status: Inactive Member Role/Relationship Status Dates Dr. Karen Chacko MD Primary Care Provider Active Start: October 25, 2024 End: October 25, 2024 Dr. Karen Cahcko MD Referring Provider Active St art: October 25, 2024 End: October 25, 2024 Shannon Osuna HEEL SEAT FILLER, HEEL SEAT FILLER-C Attending Provider Active Start: October 25, 2024 End: October 25, 2024 Team Status: Inactive Member Role/Relationship Status Dates Dr. Karen Chacko MD Primary Care Provider Active Start: October 28, 2024 End: October 28, 2024 Dr. Karen Chacko MD Referring Provider Active St art: October 28, 2024 End: October 28, 2024 Dr. Jeovanny Hall MD Attending Provider Active Sta rt: October 28, 2024 End: October 28, 2024 Team Status: Inactive Member Role/Relationship Status Dates Dr. Karen Chacko MD Primary Care Provider Active Start: November 25, 2024 End: November 25, 2024 Dr. Karen Chacko MD Referring Provider Active St art: November 25, 2024 End: November 25, 2024 Dr. Holly Spear MD Attending Provider Active Start: November 25, 2024 End: November 25, 2024 Team Status: Inactive Member Role/Relationship Status Dates Dr. Karen Chacko MD Primary Care Provider Active Start: August 13, 2024 End: August 13, 2024 Dr. Karen Chacko MD Referring Provider Active St art: August 13, 2024 End: August 13, 2024 Alycia Torres CNM Attending Provider Active S tart: August 13, 2024 End: August 13, 2024 Team Status: Inactive Member Role/Relationship Status Dates Dr. Karen Chacko MD Primary Care Provider Active Start: August 13, 2024 End: August 13, 2024 Alycia Torres CNM Attending Provider Active S tart: August 13, 2024 End: August 13, 2024 Alycia Torres CNM Referring Provider Active S tart: August 13, 2024 End: August 13, 2024 Team Status: Inactive Member Role/Relationship Status Dates Dr. Karen Chacko MD Primary Care Provider Active Start: August 30, 2024 End: August 30, 2024 Dr. Karen Chacko MD Referring Provider Active St art: August 30, 2024 End: August 30, 2024 Dr. Sarah Harris DO Attending Provider Activ e Start: August 30, 2024 End: August 30, 2024 Team Status: Inactive Member Role/Relationship Status Dates Dr. Karen Chacko MD Primary Care Provider Active Start: August 30, 2024 End: August 30, 2024 Dr. Sarah Harris DO Attending Provider Activ e Start: August 30, 2024 End: August 30, 2024 Dr. Sarah Harris DO Referring Provider Activ e Start: August 30, 2024 End: August 30, 2024 Team Status: Inactive Member Role/Relationship Status Dates Dr. Karen Chacko MD Primary Care Provider Active Start: September 08, 2024 End: September 08, 2024 Dr. Holly Spear MD Attending Provider Active Start: September 08, 2024 End: September 08, 2024 Dr. Holly Spear MD Referring Provider Active Start: September 08, 2024 End: September 08, 2024 Team Status: Inactive Member Role/Relationship Status Dates Dr. Karen Chacko MD Primary Care Provider Active Start: September 27, 2024 End: September 27, 2024 Dr. Karen Chacko MD Referring Provider Active St art: September 27, 2024 End: September 27, 2024 Alycia Torres CNM Attending Provider Active S tart: September 27, 2024 End: September 27, 2024 Team Status: Inactive Member Role/Relationship Status Dates Dr. Karen Chacko MD Primary Care Provider Active Start: September 27, 2024 End: September 27, 2024 Alycia Torres CNM Attending Provider Active S tart: September 27, 2024 End: September 27, 2024 Alycia Torres CNM Referring Provider Active S tart: September 27, 2024 End: September 27, 2024 Team Status: Inactive Member Role/Relationship Status Dates Dr. Karen Chacko MD Primary Care Provider Active Start: October 25, 2024 End: October 25, 2024 Dr. Karen Chacko MD Referring Provider Active St art: October 25, 2024 End: October 25, 2024 Shannon Osuna HEEL SEAT FILLER, HEEL SEAT FILLER-C Attending Provider Active Start: October 25, 2024 End: October 25, 2024 Team Status: Inactive Member Role/Relationship Status Dates Dr. Karen Chacko MD Primary Care Provider Active Start: October 28, 2024 End: October 28, 2024 Dr. Karen Chacko MD Referring Provider Active St art: October 28, 2024 End: October 28, 2024 Dr. Jeovanny Hall MD Attending Provider Active Sta rt: October 28, 2024 End: October 28, 2024 Team Status: Inactive Member Role/Relationship Status Dates Dr. Karen Chacko MD Primary Care Provider Active Start: November 25, 2024 End: November 25, 2024 Dr. Karen Chacko MD Referring Provider Active St art: November 25, 2024 End: November 25, 2024 Dr. Holly Spear MD Attending Provider Active Start: November 25, 2024 End: November 25, 2024 Team Status: Inactive Member Role/Relationship Status Dates Dr. Karen Chacko MD Primary Care Provider Active Start: November 25, 2024 End: November 25, 2024 Dr. Holly Spear MD Attending Provider Active Start: November 25, 2024 End: November 25, 2024 Dr. Holly Spear MD Referring Provider Active Start: November 25, 2024 End: November 25, 2024 Team Status: Inactive Member Role/Relationship Status Dates Dr. Karen Chacko MD Primary Care Provider Active Start: August 30, 2024 End: August 30, 2024 Dr. Karen Chacko MD Referring Provider Active St art: August 30, 2024 End: August 30, 2024 Dr. Sarah Harris DO Attending Provider Activ e Start: August 30, 2024 End: August 30, 2024 Team Status: Inactive Member Role/Relationship Status Dates Dr. Karen Chacko MD Primary Care Provider Active Start: August 30, 2024 End: August 30, 2024 Dr. Sarah Harris DO Attending Provider Activ e Start: August 30, 2024 End: August 30, 2024 Dr. Sarah Harris DO Referring Provider Activ e Start: August 30, 2024 End: August 30, 2024 Team Status: Inactive Member Role/Relationship Status Dates Dr. Karen Chacko MD Primary Care Provider Active Start: September 08, 2024 End: September 08, 2024 Dr. Holly Spear MD Attending Provider Active Start: September 08, 2024 End: September 08, 2024 Dr. Holly Spear MD Referring Provider Active Start: September 08, 2024 End: September 08, 2024 Team Status: Inactive Member Role/Relationship Status Dates Dr. Karen Chacko MD Primary Care Provider Active Start: September 27, 2024 End: September 27, 2024 Dr. Karen Chacko MD Referring Provider Active St art: September 27, 2024 End: September 27, 2024 Alycia Torres CNM Attending Provider Active S tart: September 27, 2024 End: September 27, 2024 Team Status: Inactive Member Role/Relationship Status Dates Dr. Karen Chacko MD Primary Care Provider Active Start: September 27, 2024 End: September 27, 2024 Alycia Torres CNM Attending Provider Active S tart: September 27, 2024 End: September 27, 2024 Alycia Torres CNM Referring Provider Active S tart: September 27, 2024 End: September 27, 2024 Team Status: Inactive Member Role/Relationship Status Dates Dr. Karen Chacko MD Primary Care Provider Active Start: October 25, 2024 End: October 25, 2024 Dr. Karen Chacko MD Referring Provider Active St art: October 25, 2024 End: October 25, 2024 Shannon Osuna HEEL SEAT FILLER, HEEL SEAT FILLER-C Attending Provider Active Start: October 25, 2024 End: October 25, 2024 Team Status: Inactive Member Role/Relationship Status Dates Dr. Karen Chacko MD Primary Care Provider Active Start: October 28, 2024 End: October 28, 2024 Dr. Karen Chacko MD Referring Provider Active St art: October 28, 2024 End: October 28, 2024 Dr. Jeovanny Hall MD Attending Provider Active Sta rt: October 28, 2024 End: October 28, 2024 Team Status: Inactive Member Role/Relationship Status Dates Dr. Karen Chacko MD Primary Care Provider Active Start: November 25, 2024 End: November 25, 2024 Dr. Karen Chacko MD Referring Provider Active St art: November 25, 2024 End: November 25, 2024 Dr. Holly Spear MD Attending Provider Active Start: November 25, 2024 End: November 25, 2024 Team Status: Inactive Member Role/Relationship Status Dates Dr. Karen Chacko MD Primary Care Provider Active Start: November 25, 2024 End: November 25, 2024 Dr. Holly Spear MD Attending Provider Active Start: November 25, 2024 End: November 25, 2024 Dr. Holly Spear MD Referring Provider Active Start: November 25, 2024 End: November 25, 2024 Team Status: Inactive Member Role/Relationship Status Dates Dr. Karen Chacko MD Primary Care Provider Active Start: December 22, 2024 End: December 22, 2024 Dr. Karen Chacko MD Referring Provider Active St art: December 22, 2024 End: December 22, 2024 Alycia Torres CNM Attending Provider Active S tart: December 22, 2024 End: December 22, 2024 Team Status: Inactive Member Role/Relationship Status Dates Dr. Karen Chacko MD Primary Care Provider Active Start: December 28, 2024 End: December 28, 2024 Dr. Karen Chacko MD Referring Provider Active St art: December 28, 2024 End: December 28, 2024 Shannon Osuna NP, HEEL SEAT FILLER-C Attending Provider Active Start: December 28, 2024 End: December 28, 2024 Team Status: Active Member Role/Relationship Status Dates Dr. Karen Chacko MD Primary care physician Active Team Status: Inactive Member Role/Relationship Status Dates Dr. Karen Chacko MD Primary care physician Active Start: September 27, 2024 End: September 27, 2024 Dr. Karen Chacko MD Referring Provider Active St art: September 27, 2024 End: September 27, 2024 Alycia Torres CNM Attending physician Active Start: September 27, 2024 End: September 27, 2024 Team Status: Inactive Member Role/Relationship Status Dates Dr. Karen Chacko MD Primary care physician Active Start: September 27, 2024 End: September 27, 2024 Alycia Torres CNM Attending physician Active Start: September 27, 2024 End: September 27, 2024 Alycia Torres CNM Referring Provider Active S tart: September 27, 2024 End: September 27, 2024 Team Status: Inactive Member Role/Relationship Status Dates Dr. Karen Chacko MD Primary care physician Active Start: October 25, 2024 End: October 25, 2024 Dr. Karen Chacko MD Referring Provider Active St art: October 25, 2024 End: October 25, 2024 Shannon Osuna HEEL SEAT FILLER, HEEL SEAT FILLER-C Attending physician Active Start: October 25, 2024 End: October 25, 2024 Team Status: Inactive Member Role/Relationship Status Dates Dr. Karen Chacko MD Primary care physician Active Start: October 28, 2024 End: October 28, 2024 Dr. Karen Chacko MD Referring Provider Active St art: October 28, 2024 End: October 28, 2024 Dr. Jeovanny Hall MD Attending physician Active St art: October 28, 2024 End: October 28, 2024 Team Status: Inactive Member Role/Relationship Status Dates Dr. Karen Chacko MD Primary care physician Active Start: November 25, 2024 End: November 25, 2024 Dr. Karen Chacko MD Referring Provider Active St art: November 25, 2024 End: November 25, 2024 Dr. Holly Spear MD Attending physician Active Start: November 25, 2024 End: November 25, 2024 Team Status: Inactive Member Role/Relationship Status Dates Dr. Karen Chacko MD Primary care physician Active Start: November 25, 2024 End: November 25, 2024 Dr. Holly Spear MD Attending physician Active Start: November 25, 2024 End: November 25, 2024 Dr. Holly Spear MD Referring Provider Active Start: November 25, 2024 End: November 25, 2024 Team Status: Inactive Member Role/Relationship Status Dates Dr. Karen Chacko MD Primary care physician Active Start: December 22, 2024 End: December 22, 2024 Dr. Karen Chacko MD Referring Provider Active St art: December 22, 2024 End: December 22, 2024 Alycia Torres CNM Attending physician Active Start: December 22, 2024 End: December 22, 2024 Team Status: Inactive Member Role/Relationship Status Dates Dr. Karen Chacko MD Primary care physician Active Start: December 28, 2024 End: December 28, 2024 Dr. Karen Chacko MD Referring Provider Active St art: December 28, 2024 End: December 28, 2024 Shannon Osuna HEEL SEAT FILLER, HEEL SEAT FILLER-C Attending physician Active Start: December 28, 2024 End: December 28, 2024 Team Status: Inactive Member Role/Relationship Status Dates Dr. Karen Chacko MD Primary care physician Active Start: January 06, 2025 End: January 06, 2025 Dr. Karen Chacko MD Referring Provider Active St art: January 06, 2025 End: January 06, 2025 Shannon Osuna HEEL SEAT FILLER, HEEL SEAT FILLER-C Attending physician Active Start: January 06, 2025 End: January 06, 2025 Team Status: Inactive Member Role/Relationship Status Dates Dr. Karen Chacko MD Primary care physician Active Start: January 11, 2025 End: January 11, 2025 Dr. Karen Chacko MD Referring Provider Active St art: January 11, 2025 End: January 11, 2025 Dr. Sarah Harris DO Attending physician Active Start: December End: January 11, 2025 Team Status: Inactive Member Role/Relationship Status Dates Dr. Karen Chacko MD Primary care physician Active Start: January 14, 2025 End: January 14, 2025 Dr. Karen Chacko MD Referring Provider Active St art: January 14, 2025 End: January 14, 2025 Alycia Torres CNM Attending physician Active Start: January 14, 2025 End: January 14, 2025 Team Status: Inactive Member Role/Relationship Status Dates Dr. Karen Chacko MD Primary care physician Active Start: January 17, 2025 End: January 17, 2025 Dr. Karen Chacko MD Referring Provider Active St art: January 17, 2025 End: January 17, 2025 Shannon Osuna NP, HEEL SEAT FILLER-C Attending physician Active Start: January 17, 2025 End: January 17, 2025 Team Status: Inactive Member Role/Relationship Status Dates Dr. Karen Chacko MD Primary care physician Active Start: October 25, 2024 End: October 25, 2024 Dr. Karen Chacko MD Referring Provider Active St art: October 25, 2024 End: October 25, 2024 Shannon Osuna HEEL SEAT FILLER, HEEL SEAT FILLER-C Attending physician Active Start: October 25, 2024 End: October 25, 2024 Team Status: Inactive Member Role/Relationship Status Dates Dr. Karen Chacko MD Primary care physician Active Start: October 28, 2024 End: October 28, 2024 Dr. Karen Chacko MD Referring Provider Active St art: October 28, 2024 End: October 28, 2024 Dr. Jeovanny Hall MD Attending physician Active St art: October 28, 2024 End: October 28, 2024 Team Status: Inactive Member Role/Relationship Status Dates Dr. Karen Chacko MD Primary care physician Active Start: November 25, 2024 End: November 25, 2024 Dr. Karen Chacko MD Referring Provider Active St art: November 25, 2024 End: November 25, 2024 Dr. Holly Spear MD Attending physician Active Start: November 25, 2024 End: November 25, 2024 Team Status: Inactive Member Role/Relationship Status Dates Dr. Karen Chacko MD Primary care physician Active Start: November 25, 2024 End: November 25, 2024 Dr. Holly Spear MD Attending physician Active Start: November 25, 2024 End: November 25, 2024 Dr. Holly Spear MD Referring Provider Active Start: November 25, 2024 End: November 25, 2024 Team Status: Inactive Member Role/Relationship Status Dates Dr. Karen Chacko MD Primary care physician Active Start: December 22, 2024 End: December 22, 2024 Dr. Karen Chacko MD Referring Provider Active St art: December 22, 2024 End: December 22, 2024 Alycia Torres CNM Attending physician Active Start: December 22, 2024 End: December 22, 2024 Team Status: Inactive Member Role/Relationship Status Dates Dr. Karen Chacko MD Primary care physician Active Start: December 28, 2024 End: December 28, 2024 Dr. Karen Chacko MD Referring Provider Active St art: December 28, 2024 End: December 28, 2024 Shannon Osuna NP, HEEL SEAT FILLER-C Attending physician Active Start: December 28, 2024 End: December 28, 2024 Team Status: Inactive Member Role/Relationship Status Dates Dr. Karen Chacko MD Primary care physician Active Start: January 06, 2025 End: January 06, 2025 Dr. Karen Chacko MD Referring Provider Active St art: January 06, 2025 End: January 06, 2025 Shannon Osuna HEEL SEAT FILLER, HEEL SEAT FILLER-C Attending physician Active Start: January 06, 2025 End: January 06, 2025 Team Status: Inactive Member Role/Relationship Status Dates Dr. Karen Chacko MD Primary care physician Active Start: January 11, 2025 End: January 11, 2025 Dr. Karen Chacko MD Referring Provider Active St art: January 11, 2025 End: January 11, 2025 Dr. Sarah Harris DO Attending physician Active Start: December End: January 11, 2025 Team Status: Inactive Member Role/Relationship Status Dates Dr. Karen Chacko MD Primary care physician Active Start: January 14, 2025 End: January 14, 2025 Dr. Karen Chacko MD Referring Provider Active St art: January 14, 2025 End: January 14, 2025 Alycia Torres CNM Attending physician Active Start: January 14, 2025 End: January 14, 2025 Team Status: Inactive Member Role/Relationship Status Dates Dr. Karen Chacko MD Primary care physician Active Start: January 17, 2025 End: January 17, 2025 Dr. Karen Chacko MD Referring Provider Active St art: January 17, 2025 End: January 17, 2025 Shannon Osuna HEEL SEAT FILLER, HEEL SEAT FILLER-C Attending physician Active Start: January 17, 2025 End: January 17, 2025 Team Status: Inactive Member Role/Relationship Status Dates Dr. Karen Chacko MD Primary care physician Active Start: January 20, 2025 End: January 20, 2025 Dr. Karen Chacko MD Referring Provider Active St art: January 20, 2025 End: January 20, 2025 Alycia Torres CNM Attending physician Active Start: January 20, 2025 End: January 20, 2025 Team Status: Inactive Member Role/Relationship Status Dates Dr. Karen Chacko MD Primary care physician Active Start: January 24, 2025 End: January 24, 2025 Dr. Karen Chacko MD Referring Provider Active St art: January 24, 2025 End: January 24, 2025 Alycia Torres CNM Attending physician Active Start: January 24, 2025 End: January 24, 2025 Team Status: Inactive Member Role/Relationship Status Dates Dr. Karen Chacko MD Primary care physician Active Start: January 27, 2025 End: January 27, 2025 Dr. Karen Chacko MD Referring Provider Active St art: January 27, 2025 End: January 27, 2025 Alycia Torres CNM Attending physician Active Start: January 27, 2025 End: January 27, 2025 Team Status: Inactive Member Role/Relationship Status Dates Dr. Karen Chacko MD Primary care physician Active Start: January 27, 2025 End: January 27, 2025 Dr. Sarah Harris DO Attending physician Acti ve Start: January 27, 2025 End: January 27, 2025 Dr. Sarah Harris DO Referring Provider Activ e Start: January 27, 2025 End: January 27, 2025 Team Status: Active Member Role/Relationship Status Dates Dr. Karen Chacko MD Primary care physician Active Start: January 27, 2025 Dr. Sarah Harris DO Attending physician Acti ve Start: January 27, 2025 Dr. Sarah Harris DO Referring Provider Activ e Start: January 27, 2025 Dr. Sarah Harris DO Nurse Practitioner Activ e Start: January 27, 2025 Team Status: Inactive Member Role/Relationship Status Dates Dr. Karen Chacko MD Primary care physician Active Start: January 31, 2025 End: January 31, 2025 Dr. Karen Chacko MD Referring Provider Active St art: January 31, 2025 End: January 31, 2025 Alycia Torres CNM Attending physician Active Start: January 31, 2025 End: January 31, 2025 Team Status: Inactive Member Role/Relationship Status Dates Dr. Karen Chacko MD Primary care physician Active Start: February 03, 2025 End: February 03, 2025 Dr. Karen Chacko MD Referring Provider Active St art: February 03, 2025 End: February 03, 2025 Alycia Torres CNM Attending physician Active Start: February 03, 2025 End: February 03, 2025 Team Status: Inactive Member Role/Relationship Status Dates Dr. Karen Chacko MD Primary care physician Active Start: February 07, 2025 End: February 07, 2025 Dr. Karen Chacko MD Referring Provider Active St art: February 07, 2025 End: February 07, 2025 Dr. Holly Spear MD Attending physician Active Start: February 07, 2025 End: February 07, 2025 Team Status: Active Member Role/Relationship Status Dates Dr. Karen Chacko MD Primary care physician Active Start: February 07, 2025 Dr. Holly Spear MD Attending physician Active Start: February 07, 2025 Team Status: Inactive Member Role/Relationship Status Dates Dr. Karen Chacko MD Primary care physician Active Start: February 07, 2025 End: February 07, 2025 Dr. Holly Spear MD Attending physician Active Start: February 07, 2025 End: February 07, 2025 Team Status: Inactive Member Role/Relationship Status Dates Dr. Karen Chacko MD Primary care physician Active Start: February 10, 2025 End: February 10, 2025 Dr. Karen Chacko MD Referring Provider Active St art: February 10, 2025 End: February 10, 2025 Alycia Torres CNM Attending physician Active Start: February 10, 2025 End: February 10, 2025 Team Status: Inactive Member Role/Relationship Status Dates Dr. Karen Chacko MD Primary care physician Active Start: February 14, 2025 End: February 14, 2025 Dr. Karen Chacko MD Referring Provider Active St art: February 14, 2025 End: February 14, 2025 Dr. Sarah Harris DO Attending physician Acti ve Start: February 14, 2025 End: February 14, 2025 Team Status: Inactive Member Role/Relationship Status Dates Dr. Karen Chacko MD Primary care physician Active Start: February 17, 2025 End: February 17, 2025 Dr. Karen Chacko MD Referring Provider Active St art: February 17, 2025 End: February 17, 2025 Alycia Torres CNM Attending physician Active Start: February 17, 2025 End: February 17, 2025 Goals (unrecognized section and content) Type Care Experience by [address] [place] [address]-labor support person: Farzad and sister (Kathi) or mom (Isis)labor intervention preferences: minimal intervention, nitrous worked well last timepain management options preferred: minimal if able but open to epiduralcut cord/dad catch: yes, consider catchbreastfeeding: yesPP control planned: discussed possible routes of delivery and associated risks: discussed possible delivery modalities and possible indications for each including R/B/A of , VAVD, FAVD, and CS. questions answered.special requests: [] Type Detail Care Experience by [address] [place], [place] [address]radha traci-labor support person: Farzad and sister (Kathi) or mom (Isis)labor intervention preferences: minimal intervention, nitrous worked well last timepain management options preferred: minimal if able but open to epiduralcut cord/dad catch: yes, consider catchbreastfeeding: yesPP control planned: discussed possible routes of delivery and associated risks: discussed possible delivery modalities and possible indications for each including R/B/A of , VAVD, FAVD, and CS. questions answered.special requests: [] Care Experience SVDLabor Preferences -CB/BF classes: []labor support person: []labor intervention preferences: pain management options preferred: Epidural cut cord/dad catch: []: []PP control planned: []discussed possible routes of delivery and associated risks: []special requests: [] INFORMATION SOURCE (unrecogn ized section and content) DATE CREATED AUTHOR 02/08/2025 [facility] DATE CREATED AUTHOR AUTHOR'S ORGANIZ ATION 02/22/2025 [facility] FOR RECORDS PERTAINING TO PATIENTS WHO ARE OR HAVE BEEN ENROLLED IN A CHEMICAL DEPENDENCY/SUBSTANCEABUSE PROGRAM, SOME INFORMATION MAY BE OMITTED. This clinical summary was aggregated from multiple sources. Caution should be exercised in using it in the provision of clinical care. This summary normalizes information from multiple sources, and as a consequence, information in this document may materially change the coding, format and clinical context of patient data. In addition, data may be omitted in some cases. CLINICAL DECISIONS SHOULD BE BASED ON THE PRIMARY CLINICAL RECORDS. [employer] provides no warranty or guarantee of the accuracy or completeness of information in this document.
--- NOTE | 2025-02-26 08:23 | HP.PCM.OB_ITS ---
HPI - General General Date of Admission: 02/26/25 Date of Service: 02/26/25 HPI Narrative BRITTANY ROCA, is a 39 F 39.1 who presents to unit for decreased movement. Reactive NST, decision made for induction since she was scheduled for tonight. SVE /3 Maternal Data Information ISIDRA Calculator Estimated Delivery Date Method Current WG Current Estimate 03/04/25 LMP (Certain) 39w 1d Other Estimates 03/10/25 Ultrasound #1 38w 2d 03/04/25 Ultrasound #2 39w 1d Final ISIDRA: 03/04/25 Final ISIDRA Source: US >20 weeks Gestational age: 39.1 PFSH PFS Medical History Varicose veins of both lower extremities Seasonal allergies Normal vaginal delivery Superficial varicosities Depression Gestational diabetes PCOS (polycystic ovarian syndrome) Genital herpes affecting Home Medications Medication Instructions Recorded Last Taken Type mv-mn 110-FA 180 mcg-om3 35 mg-dha 1 tab PO DAILY Preg vern 07/23/24 02/25/25 History 25 mg-epa 5 mg-fish oil chew tablet flash glucose scanning reader #1 ea 08/31/24 Unknown R x (FreeStyle Todd 2 [place]) flash glucose sensor (FreeStyle #1 ea 08/31/24 Unknown Rx Todd 2 Sensor kit) valacyclovir 500 mg tablet 500 mg PO QDAY #30 tabs 11/0502/25/25 Rx metformin 500 mg tablet 1,000 mg PO DAILY 02/26/25 1 04/27/24 History Allergy/AdvReac Type Severity Reaction Status Date / Time avocado (avacado) Allergy Intermediate Swelling Verified 02/24/25 13:37 of tongue Family History Aunt Breast cancer, Onset Age: 40 Maternal- unknown if genetic testing was done. 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[employer] current occupational exposures/hazards: No pets and animals: Yes pets and animals: dog(s) history of recent travel: Yes (- June) out of state: Yes out of country: No sexually active: Yes Smoking Status: Never smoker second hand exposure: No alcohol intake: current alcohol intake frequency: holidays/special occasions only details: not while substance use type: does not use well-balanced diet: daily or most days caffeine: No eating out: 1-3 times/week during the past year weight has: increased > 10 lbs what type of physical activity do you participate in: other details: crossfit frequency: 1-2 times per week duration: 45-60 minutes/day amanda/samaritan: Baptism seatbelt use: always do you feel safe at home: Yes additional social history: - Farzad History 3 Elective abortions Hx Para 2 Spontaneous abortions Hx # Term Pregnancies Ectopic pregnancies Hx # Pregnancies Multiple births # of living children 2 Past Pregnancies Del. Date Name GA/Weeks Outcome Route Bth Weight Gen Labor Lgth Anesthesia Del Locatn Provider FOB 08/26/18 Jennifer 40 live - full term 9lbs Female 16 hours none [facility] EB Farzad 10/24/20 Aleksander 39 live - full term 8#10oz Male epi dural [facility] Dr. Rainer Panda Delivery Date: 08/26/18 Last Updated by: Pauline Tay 3rd degree laceration; NICU for possible NEC- she did not have Visit Details Expected Delivery Route/Plan Labor Preferences- CB/BF classes: [] labor support person: [] labor intervention preferences: pain management options preferred: Epidural cut cord/dad catch: [] : [] PP control planned: [] discussed possible routes of delivery and associated risks: [] special requests: [] Plans Covid status: [] Flu vaccine: given Tdap vaccine: given Rhogam: na LARC form signed: declined movement and labor precautions reviewed. Problem list reviewed and updated with the most current plan of care details and appropriate orders placed. Relevant counseling for the gestational age provided. Continue routine care and follow up unless otherwise noted in visit notes/problem list details OB Flowsheet Initial Weight: Not Recorded Date - - - - - - - - - - - - - EGA Weight BP Urine Prot - - - - - - - - - - - - - Glucose FHR FuHt Pres Dilation - - - - - - - - - - - - - Effaced St Visit Note 07/28/24 - - - - - - - - - - - - - 8w 5d 233 lb 2 oz 129/79 - - - - - - - - - - - - - 170 - - - - - - - - - - - - - SM- CRL 1.4 not cons with LMP 08/13/24 - - - - - - - - - - - - - 11w 0d Negative - - - - - - - - - - - - - Negative - - - - - - - - - - - - - nurse visit for UTI sx. culture sent and rx for atb sent due to sx. 08/30/24 - - - - - - - - - - - - - 13w 3d 234 lb 6 oz 115/73 Nega tive - - - - - - - - - - - - - Negative 155 - - - - - - - - - - - - - JV- no lof, vagi nal bleeding, or cramping. due date cleared up. Needs clean catch test of cure and new ob labs 09/27/24 - - - - - - - - - - - - - 17w 3d 236 lb 6 oz 116/75 - - - - - - - - - - - - - 155 - - - - - - - - - - - - - KW- US scheduled with [facility]. no vb/cramping. +flutters. On metformin 500mg for Blood sugars. Reports fasting BS under 95. Encouraged to continue checking BS and follow up with DR Kim. doing well on ZOloft. KW- US scheduled with [facility]. n o vb/cramping. +flutters. On metformin 500mg for Blood sugars. Reports fasting BS under 95. Encouraged to continue checking BS- has not been consistent- and follow up with DR Kim. doing well on ZOloft. 10/25/24 - - - - - - - - - - - - - 21w 3d 236 lb 2 oz 122/70 Nega tive - - - - - - - - - - - - - Negative 142 - - - - - - - - - - - - - -No VB. Jaziel Padilla M. Insulin resistant/on metformin and seeing Dr Hall -No VB. Good FM. Insulin r esistant/on metformin and seeing Dr Hall. 11/25/24 - - - - - - - - - - - - - 25w 6d 236 lb 9 oz 97/64 Nega tive - - - - - - - - - - - - - Negative 140 26 - - - - - - - - - - - - - - no vb lof go od fm n oregular ctx 12/22/24 - - - - - - - - - - - - - 29w 5d 241 lb 8 oz 113/79 Nega tive - - - - - - - - - - - - - Negative 150 32 - - - - - - - - - - - - - - no vb/lof/ct x. good fm. Hall following blood sugars. 1000mg of metformin nightly. growth US ordered for S>D 12/28/24 - - - - - - - - - - - - - 30w 4d 241 lb 6 oz 102/66 Nega tive - - - - - - - - - - - - - Negative 153 33 - -- - - - - - - - - - - - -No VB,LOF, CT X. Good FM. Feeling more anxious, not sure zoloft working. Reassured concerning risks to . Discussed changing to buspar or increasing dosage. She prefers to increase dosage. Is seeing counselor 3 X month 01/06/25 - - - - - - - - - - - - - 31w 6d 243 lb 5 oz 105/65 Nega tive - - - - - - - - - - - - - Negative 157 34 - - - - - - - - - - - - - -No VB, LOF. G ood FM. Stopped zoloft completely and feels much better. Glucose levels followed per endo and at nl ranges. NSTs2 X wk start next week and has growth US next week 01/11/25 - - - - - - - - - - - - - 32w 4d 247 lb 2 oz 108/67 Nega tive - - - - - - - - - - - - - Negative 150 - - - - - - - - - - - - - JV- nst only tod ay. reactive. states metfomin is helping with fasting levels. followed by Dr. Hall. She has a growth scan now. 01/14/25 - - - - - - - - - - - - - 33w 0d 247 lb 3 oz 116/71 Nega tive - - - - - - - - - - - - - Negative 135 - - - - - - - - - - - - - KW- no vb/lof/ct x good fm. reactive NST. [facility] in skilled nursing-noticing some spikes in blood sugars with stress. still following with . 01/17/25 - - - - - - - - - - - - - 33w 3d 244 lb 9 oz 106/68 Nega tive - - - - - - - - - - - - - Negative 140 34 - - - - - - - - - - - - - MH-No VB, LOF. G ood FM. Reactive NST. FLu vaccine given 01/20/25 - - - - - - - - - - - - - 33w 6d 247 lb 7 oz 112/70 Nega tive - - - - - - - - - - - - - Negative 130 - - - - - - - - - - - - - KW- No vb/lof/ct x. good fm. reactive NST 01/24/25 - - - - - - - - - - - - - 34w 3d 250 lb 7 oz 103/69 Nega tive - - - - - - - - - - - - - Negative 135 - - - - - - - - - - - - - KW- no vb/lof/ct x. good fm reactive nst has growth US scheduled. blood sugars controlled. 01/27/25 - - - - - - - - - - -- - - 34w 6d 249 lb 1 oz 113/74 Nega tive - - - - - - - - - - - - - Negative 130 - - - - - - - - - - - - - KW- NST only. no t reactive. to for BPP. 01/31/25 - - - - - - - - - - - - - 35w 3d 252 lb 4 oz 103/72 Nega tive - - - - - - - - - - - - - Negative 155 36 - - - - -- - - - - - - - - KW- no vb/lof/ct x. good fm. Reactive NST. blood sugars reviewed. growth US next friday02/03/25 - - - - - - - - - - - - - 35w 6d 249 lb 6 oz 114/74 Nega tive - - - - - - - - - - - - - Negative 155 - - - - - - - - - - - - - KW- NST only. re active. is increasing metformin and adding 500mg in am per Rafael 02/07/25 - - - - - - - - - - - - - 36w 3d 251 lb 3 oz 122/73 Nega tive - - - - - - - - - - - - - Negative 145 0.5 - - - - - - - - - - - - - SM- no vb lof go od fm no reuglar ctx BS controlled. 02/10/25 - - - - - - - - - - - - - 36w 6d 253 lb 128/84 Negative - - - - - - - - - - - - - Negative 140 - - - - - - - - - - - - - KW- NST only. Bam martin reviewed. discussed 39 week IOL 02/14/25 - - - - - - - - - - - - - 37w 3d 251 lb 3 oz 121/76 Nega tive - - - - - - - - - - - - - Negative 150 - - - - - - - - - - - - - JV- NST reactive . glucose log normal. Planning either 02/25 or 02/26. 02/17/25 - - - - - - - - - - - - - 37w 6d 253 lb 6 oz 113/68 Nega tive - - - - - - - - - - - - - Negative 155 - - - - - - -- - - - - - - KW- no vb/lof/ct x. good fm. NST reactive. BS reviewed-nl 02/21/25 - - - - - - - - - - - - - 38w 3d 253 lb 9 oz 134/86 Nega tive - - - - - -- - - - - - - - Negative 140 - - - - - - - - - - - - - SM- no vb lof go od fm n oreuglar ctx BS controlled IOL friday NST FHR Rate Baby A Baseline: 135 Variability:: Moderate Accelerations:: 15 x 15 Decelerations:: None NST Reactive:: Yes FHR Category:: Category I Uterine Activity:: none ROS Constitutional Constitutional: Denies change in weight, fatigue, fever(s), headache(s), poor appetite or weakness Eyes Eyes: Denies blurry vision, change in vision, floaters, seeing flashes or spots in vision ENT HEENT: Denies dizziness, headache(s), loss taste/smell or sore throat Cardiovascular Cardiovascular: Denies chest pain, dizziness, dyspnea, irregular heart rhythm, lightheadedness, palpitations or rapid heart rate Respiratory/Chest Respiratory/Chest: Denies change in mental status, chest tightness, cough, dyspnea or breast pain Gastrointestinal Gastrointestinal: Denies anorexia, chewing difficulty, constipation, diarrhea or weight changes Genitourinary Genitourinary: Denies difficulty urinating, dysuria, flank pain, genital pain, urinary frequency or urinary urgency Musculoskeletal Musculoskeletal: Denies back pain, difficulty walking, extremity pain, joint pain, muscle cramps or muscle weakness Integumentary Integumentary: Denies lesions or unusual bruising Neurologic Neurologic: Denies abnormal movements, abnormal speech, dizziness, numbness, seizure-like activity, syncope or weakness Psychiatric Psychiatric: Denies behavioral changes, change in appetite, confusion, depression, homicidal ideation, suicidal ideation or suicidal thoughts Endocrine Endocrinology: Denies excessive sweating, polydipsia or polyuria Hematologic/Lymphatic Hematologic/Lymphatic: Denies anemia Allergic/Immunologic Allergic/Immunologic: Denies itchy eyes, lip swelling, throat swelling, tongue swelling or wheezing Vital Signs Vital Signs Vital Signs: 02/26/25 07:31 02/26/25 07:31 02/26/25 07:31 Temperature Temperature Source Temporal Pulse Rate 85 Respiratory Rate Blood Pressure BP Systolic BP Diastolic Pulse Ox 97 02/26/25 07:31 02/26/25 07:31 02/26/25 07:32 Temperature 98.5 F Temperature Source Pulse Rate Respiratory Rate 16 Blood Pressure 118/70 BP Systolic 118 BP Diastolic 70 Pulse Ox 02/26/25 07:32 Temperature Temperature Source Pulse Rate 85 Respiratory Rate Blood Pressure BP Systolic BP Diastolic Pulse Ox Weight Weight: 257 lb 4.471 oz Body Mass Index (BMI) 38.0 Physical Exam Const alert, oriented x3 and no apparent distress General Appearance: cooperative Orientation / Consciousness: awake HEENT normocephalic Neck full ROM Lymph Lymphatic: no lymphadenopathy noted Chest inspection of chest normal Resp normal respiratory effort and normal air movement Effort and Inspection: able to speak in complete sentences and symmetric chest movement GI soft to palpation and non-tender Inspection: gravid Palpation: soft; Negative for tender external exam normal Back/Spine normal to inspection Extremity normal to inspection and full ROM Skin no rashes or lesions noted Psych mental status grossly normal Appearance: grossly normal Speech: normal speech Labs Labs Labs: Blood Type A POSITIVE Antibody Screen NEGATIVE Hct, (37-47) 35.2 % L Hgb, (12.0-15.0) 11.9 g/dL L Obstetrics Ultrasound Syphilis Total Ab, (Nonreactive) Nonreactive Rubella IgG Antibody, (Nonreactive) REAC Hep Bs Antigen, (Nonreactive) Nonreactive Hepatitis C Antibody, (Nonreactive) Nonreactive Hepatitis C Ab (EIA), (0.0-0.9) 0.1 s/co ratio Chlamydia DNA (PAU), (Negative) Negative N.gonorrhoeae DNA (PAU), (Negative) Negative HIV 1&2 Antibody, (Nonreactive) Nonreactive Glucose 1 Hr 50 gm, (70-140) 146 mg/dL H Gest Glucose Tolerance mg/dL Group B Strep DNA, (Negative) Negative Rhogam given: No Assessment & Plan (1) Encounter for induction of labor: COMMENT: pitocin PLAN: Patient presents IOL, plan management for with pitocin/AROM. Pain management: plans epidural. GBS negative. Management of any complications: see list I have reviewed the [facility] and made any clinically relevant updates. Dr Duncan aware of assessment, plan and admission. agrees with above (2) Uterine size date discrepancy : COMMENT: growth US ordered:32 wk:EFW 68%, AC 98%. 36 w scheduled (3) Gestational diabetes: QUALIFIERS: Gestational diabetes mellitus control: oral hypoglycemic-controlled Trimester: second trimester Qualified Code(s): O24.415 - Gestational diabetes mellitus in , controlled by oral hypoglycemic drugs COMMENT: GDMA2 on metformin; Dr Hall manages. Growth US 32 and 36 wk. Twice wkly NST at 32 wk. Del at 39 wk (4) UTI (urinary tract infection) during : QUALIFIERS: Trimester: second trimester Qualified Code(s): O23.42 - Unspecified infection of urinary tract in , second trimester (5) AMA (advanced maternal age) multigravida 35+: QUALIFIERS: Trimester: third trimester Qualified Code(s): O09.523 - Supervision of elderly multigravida, third trimester COMMENT: discussed genetic testing. Patient declines. (6) Genital herpes affecting : QUALIFIERS: Trimester: third trimester Qualified Code(s): O98.313 - Other infections with a predominantly sexual mode of transmission complicating , third trimester; A60.09 - Herpesviral infection of other urogenital tract COMMENT: valtrex at 34-36 weeks (7) Obesity affecting : QUALIFIERS: Trimester: second trimester Obesity type affecting : unspecified obesity Qualified Code(s): O99.212 - Obesity complicating , second trimester COMMENT: HGBA1C, BMI 33 (8) History of gestational diabetes mellitus (GDM) in prior , currently : (9) Anxiety: COMMENT: zoloft stopped. Continue counseling 3 X a week. "feels much better off med" (10) Supervision of high-risk : QUALIFIERS: Trimester: third trimester Qualified Code(s): O09.93 - Supervision of high risk , unspecified, third trimester COMMENT: PRR , ISIDRA 03/04/25, boy PC Aleksander Rodriguez, Farzad (11) : QUALIFIERS: Weeks of gestation: 38 weeks Qualified Code(s): Z3A.38 - 38 weeks gestation of COMMENT: GBS neg, declined NIPT & Carrier testing, nl 3 HR GTT, nl anatomy Charges/Coding Multi Select Codes Urinary/Genital Urinary/Genital CPT Codes: No Charge
--- NOTE | 2025-02-26 08:23 | PCM.HP.OB ---
HPI - General General Date of Admission: 02/26/25 Date of Service: 02/26/25 HPI Narrative BRITTANY ROCA, is a 39 F 39.1 who presents to unit for decreased movement. Reactive NST, decision made for induction since she was scheduled for tonight. SVE /3 Maternal Data Information ISIDRA Calculator Estimated Delivery Date Method Current WG Current Estimate 03/04/25 LMP (Certain) 39w 1d Other Estimates 03/10/25 Ultrasound #1 38w 2d 03/04/25 Ultrasound #2 39w 1d Final ISIDRA: 03/04/25 Final ISIDRA Source: US >20 weeks Gestational age: 39.1 PFSH PFS Medical History Varicose veins of both lower extremities Seasonal allergies Normal vaginal delivery Superficial varicosities Depression Gestational diabetes PCOS (polycystic ovarian syndrome) Genital herpes affecting Home Medications Medication Instructions Recorded Last Taken Type mv-mn 110-FA 180 mcg-om3 35 mg-dha 1 tab PO DAILY 07/23/24 02/25/25 History 25 mg-epa 5 mg-fish oil chew tablet flash glucose scanning reader #1 ea 08/31/24 Unknown Rx (FreeStyle [place] 2 [place]) flash glucose sensor (FreeStyle #1 ea 08/31/24 Unknown Rx Todd 2 Sensor kit) valacyclovir 500 mg tablet 500 mg PO QDAY #30 tabs 01/18/25 02/25/25 Rx metformin 500 mg tablet 1,000 mg PO DAILY 02/26/25 02/25/25 History Allergy/AdvReac Type Severity Reaction Status Date / Time avocado ([place]) Allergy Intermediate Swelling Verified 02/24/25 13:37 of tongue Family History Aunt Breast cancer, Onset Age: 40 Maternal- unknown if genetic testing was done. 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 current occupational exposures/hazards: No pets and animals: Yes pets and animals: dog(s) history of recent travel: Yes (- June) out of state: Yes out of country: No sexually active: Yes Smoking Status: Never smoker second hand exposure: No alcohol intake: current alcohol intake frequency: holidays/special occasions only details: not while substance use type: does not use well-balanced diet: daily or most days caffeine: No eating out: 1-3 times/week during the past year weight has: increased > 10 lbs what type of physical activity do you participate in: other details: crossfit frequency: 1-2 times per week duration: 45-60 minutes/day amanda/christian: Islam seatbelt use: always do you feel safe at home: Yes additional social history: - Farzad History 3 Elective abortions Hx Para 2 Spontaneous abortions Hx # Term Pregnancies Ectopic pregnancies Hx # Pregnancies Multiple births # of living children 2 Past Pregnancies Del. Date Name GA/Weeks Outcome Route Bth Weight Gen Labor Lgth Anesthesia Del Locatn Provider FOB 08/26/18 Jennifer 40 live - full term 9lbs Female 16 hours none [facility] EB Farzad 10/24/20 Aleksander 39 live - full term 8#10oz Male epidural [facility] Dr. Rainer Panda Delivery Date: 08/26/18 Last Updated by: Pauline Tay 3rd degree laceration; NICU for possible NEC- she did not have Visit Details Expected Delivery Route/Plan Labor Preferences- CB/BF classes: [] labor support person: [] labor intervention preferences: pain management options preferred: Epidural cut cord/dad catch: [] : [] PP control planned: [] discussed possible routes of delivery and associated risks: [] special requests: [] Plans Covid status: [] Flu vaccine: given Tdap vaccine: given Rhogam: na LARC form signed: declined movement and labor precautions reviewed. Problem list reviewed and updated with the most current plan of care details and appropriate orders placed. Relevant counseling for the gestational age provided. Continue routine care and follow up unless otherwise noted in visit notes/problem list details OB Flowsheet Initial Weight: Not Recorded Date <del> </del> EGA Weight BP Urine Prot <del> </del> Glucose FHR FuHt Pres Dilation <del> </del> Effaced St Visit Note 07/28/24 <del> </del> 8w 5d 233 lb 2 oz 129/79 <del> </del> 170 <del> </del> SM- CRL 1.4 not cons with LMP 08/13/24 <del> </del> 11w 0d Negative <del> </del> Negative <del> </del> nurse visit for UTI sx. culture sent and rx for atb sent due to sx. 08/30/24 <del> </del> 13w 3d 234 lb 6 oz 115/73 Negative <del> </del> Negative 155 <del> </del> JV- no lof, vaginal bleeding, or cramping. due date cleared up. Needs clean catch test of cure and new ob labs 09/27/24 <del> </del> 17w 3d 236 lb 6 oz 116/75 <del> </del> 155 <del> </del> KW- US scheduled with MFM. no vb/cramping. +flutters. On metformin 500mg for Blood sugars. Reports fasting BS under 95. Encouraged to continue checking BS and follow up with DR Kim. doing well on ZOloft. KW- US scheduled with MF. no vb/cramping. +flutters. On metformin 500mg for Blood sugars. Reports fasting BS under 95. Encouraged to continue checking BS-has not been consistent- and follow up with DR Kim. doing well on ZOloft. 10/25/24 <del> </del> 21w 3d 236 lb 2 oz 122/70 Negative <del> </del> Negative 142 <del> </del> MH-No VB. Good FM. Insulin resistant/on metformin and seeing Dr Hall -No VB. Good FM. Insulin resistant/on metformin and seeing Dr Hall. 11/25/24 <del> </del> 25w 6d 236 lb 9 oz 97/64 Negative <del> </del> Negative 140 26 <del> </del> SM- no vb lof good fm n oregular ctx 12/22/24 <del> </del> 29w 5d 241 lb 8 oz 113/79 Negative <del> </del> Negative 150 32 <del> </del> KW- no vb/lof/ctx. good fm. following blood sugars. 1000mg of metformin nightly. growth US ordered for S>D 12/28/24 <del> </del> 30w 4d 241 lb 6 oz 102/66 Negative <del> </del> Negative 153 33 <del> </del> MH-No VB,LOF, CTX. Good FM. Feeling more anxious, not sure zoloft working. Reassured concerning risks to . Discussed changing to buspar or increasing dosage. She prefers to increase dosage. Is seeing counselor 3 X month 01/06/25 <del> </del> 31w 6d 243 lb 5 oz 105/65 Negative <del> </del> Negative 157 34 <del> </del> MH-No VB, LOF. Good FM. Stopped zoloft completely and feels much better. Glucose levels followed per endo and at nl ranges. NSTs2 X wk start next week and has growth US next week 01/11/25 <del> </del> 32w 4d 247 lb 2 oz 108/67 Negative <del> </del> Negative 150 <del> </del> JV- nst only today. reactive. states metfomin is helping with fasting levels. followed by Dr. Hall. She has a growth scan now. 01/14/25 <del> </del> 33w 0d 247 lb 3 oz 116/71 Negative <del> </del> Negative 135 <del> </del> KW- no vb/lof/ctx good fm. reactive NST. MIL in longterm-noticing some spikes in blood sugars with stress. still following with . 01/17/25 <del> </del> 33w 3d 244 lb 9 oz 106/68 Negative <del> </del> Negative 140 34 <del> </del> MH-No VB, LOF. Good FM. Reactive NST. FLu vaccine given 01/20/25 <del> </del> 33w 6d 247 lb 7 oz 112/70 Negative <del> </del> Negative 130 <del> </del> KW- No vb/lof/ctx. good fm. reactive NST 01/24/25 <del> </del> 34w 3d 250 lb 7 oz 103/69 Negative <del> </del> Negative 135 <del> </del> KW- no vb/lof/ctx. good fm reactive nst has growth US scheduled. blood sugars controlled. 01/27/25 <del> </del> 34w 6d 249 lb 1 oz 113/74 Negative <del> </del> Negative 130 <del> </del> KW- NST only. not reactive. to WP for BPP. 01/31/25 <del> </del> 35w 3d 252 lb 4 oz 103/72 Negative <del> </del> Negative 155 36 <del> </del> KW- no vb/lof/ctx. good fm. Reactive NST. blood sugars reviewed. growth US next friday02/03/25 <del> </del> 35w 6d 249 lb 6 oz 114/74 Negative <del> </del> Negative 155 <del> </del> KW- NST only. reactive. is increasing metformin and adding 500mg in am per Rafael 02/07/25 <del> </del> 36w 3d 251 lb 3 oz 122/73 Negative <del> </del> Negative 145 0.5 <del> </del> SM- no vb lof good fm no reuglar ctx BS controlled. 02/10/25 <del> </del> 36w 6d 253 lb 128/84 Negative <del> </del> Negative 140 <del> </del> KW- NST only. Growth US reviewed. discussed 39 week IOL 02/14/25 <del> </del> 37w 3d 251 lb 3 oz 121/76 Negative <del> </del> Negative 150 <del> </del> JV- NST reactive. glucose log normal. Planning either 02/25 or 02/26. 02/17/25 <del> </del> 37w 6d 253 lb 6 oz 113/68 Negative <del> </del> Negative 155 <del> </del> KW- no vb/lof/ctx. good fm. NST reactive. BS reviewed-nl 02/21/25 <del> </del> 38w 3d 253 lb 9 oz 134/86 Negative <del> </del> Negative 140 <del> </del> SM- no vb lof good fm n oreuglar ctx BS controlled IOL friday NST FHR Rate Baby A Baseline: 135 Variability:: Moderate Accelerations:: 15 x 15 Decelerations:: None NST Reactive:: Yes FHR Category:: Category I Uterine Activity:: none ROS Constitutional Constitutional: Denies change in weight, fatigue, fever(s), headache(s), poor appetite or weakness Eyes Eyes: Denies blurry vision, change in vision, floaters, seeing flashes or spots in vision ENT HEENT: Denies dizziness, headache(s), loss taste/smell or sore throat Cardiovascular Cardiovascular: Denies chest pain, dizziness, dyspnea, irregular heart rhythm, lightheadedness, palpitations or rapid heart rate Respiratory/Chest Respiratory/Chest: Denies change in mental status, chest tightness, cough, dyspnea or breast pain Gastrointestinal Gastrointestinal: Denies anorexia, chewing difficulty, constipation, diarrhea or weight changes Genitourinary Genitourinary: Denies difficulty urinating, dysuria, flank pain, genital pain, urinary frequency or urinary urgency Musculoskeletal Musculoskeletal: Denies back pain, difficulty walking, extremity pain, joint pain, muscle cramps or muscle weakness Integumentary Integumentary: Denies lesions or unusual bruising Neurologic Neurologic: Denies abnormal movements, abnormal speech, dizziness, numbness, seizure-like activity, syncope or weakness Psychiatric Psychiatric: Denies behavioral changes, change in appetite, confusion, depression, homicidal ideation, suicidal ideation or suicidal thoughts Endocrine Endocrinology: Denies excessive sweating, polydipsia or polyuria Hematologic/Lymphatic Hematologic/Lymphatic: Denies anemia Allergic/Immunologic Allergic/Immunologic: Denies itchy eyes, lip swelling, throat swelling, tongue swelling or wheezing Vital Signs Vital Signs Vital Signs: 02/26/25 07:31 02/26/25 07:31 02/26/25 07:31 Temperature Temperature Source Temporal Pulse Rate 85 Respiratory Rate Blood Pressure BP Systolic BP Diastolic Pulse Ox 97 02/26/25 07:31 02/26/25 07:31 02/26/25 07:32 Temperature 98.5 F Temperature Source Pulse Rate Respiratory Rate 16 Blood Pressure 118/70 BP Systolic 118 BP Diastolic 70 Pulse Ox 02/26/25 07:32 Temperature Temperature Source Pulse Rate 85 Respiratory Rate Blood Pressure BP Systolic BP Diastolic Pulse Ox Weight Weight: 257 lb 4.471 oz Body Mass Index (BMI) 38.0 Physical Exam Const alert, oriented x3 and no apparent distress General Appearance: cooperative Orientation / Consciousness: awake HEENT normocephalic Neck full ROM Lymph Lymphatic: no lymphadenopathy noted Chest inspection of chest normal Resp normal respiratory effort and normal air movement Effort and Inspection: able to speak in complete sentences and symmetric chest movement GI soft to palpation and non-tender Inspection: gravid Palpation: soft; Negative for tender external exam normal Back/Spine normal to inspection Extremity normal to inspection and full ROM Skin no rashes or lesions noted Psych mental status grossly normal Appearance: grossly normal Speech: normal speech Labs Labs Labs: Blood Type A POSITIVE Antibody Screen NEGATIVE Hct, (37-47) 35.2 % L Hgb, (12.0-15.0) 11.9 g/dL L Obstetrics Ultrasound Syphilis Total Ab, (Nonreactive) Nonreactive Rubella IgG Antibody, (Nonreactive) REAC Hep Bs Antigen, (Nonreactive) Nonreactive Hepatitis C Antibody, (Nonreactive) Nonreactive Hepatitis C Ab (EIA), (0.0-0.9) 0.1 s/co ratio Chlamydia DNA (PAU), (Negative) Negative N.gonorrhoeae DNA (PAU), (Negative) Negative HIV 1&2 Antibody, (Nonreactive) Nonreactive Glucose 1 Hr 50 gm, (70-140) 146 mg/dL H Gest Glucose Tolerance mg/dL Group B Strep DNA, (Negative) Negative Rhogam given: No Assessment & Plan (1) Encounter for induction of labor: COMMENT: pitocin PLAN: Patient presents IOL, plan management for with pitocin/AROM. Pain management: plans epidural. GBS negative. Management of any complications: see list I have reviewed the [facility] and made any clinically relevant updates. Dr Duncan aware of assessment, plan and admission. agrees with above (2) Uterine size date discrepancy : COMMENT: growth US ordered:32 wk:EFW 68%, AC 98%. 36 w scheduled (3) Gestational diabetes: QUALIFIERS: Gestational diabetes mellitus control: oral hypoglycemic-controlled Trimester: second trimester Qualified Code(s): O24.415 - Gestational diabetes mellitus in , controlled by oral hypoglycemic drugs COMMENT: GDMA2 on metformin; Dr Hall manages. Growth US 32 and 36 wk. Twice wkly NST at 32 wk. Del at 39 wk (4) UTI (urinary tract infection) during : QUALIFIERS: Trimester: second trimester Qualified Code(s): O23.42 - Unspecified infection of urinary tract in , second trimester (5) AMA (advanced maternal age) multigravida 35+: QUALIFIERS: Trimester: third trimester Qualified Code(s): O09.523 - Supervision of elderly multigravida, third trimester COMMENT: discussed genetic testing. Patient declines. (6) Genital herpes affecting : QUALIFIERS: Trimester: third trimester Qualified Code(s): O98.313 - Other infections with a predominantly sexual mode of transmission complicating , third trimester; A60.09 - Herpesviral infection of other urogenital tract COMMENT: valtrex at 34-36 weeks (7) Obesity affecting : QUALIFIERS: Trimester: second trimester Obesity type affecting : unspecified obesity Qualified Code(s): O99.212 - Obesity complicating , second trimester COMMENT: HGBA1C, BMI 33 (8) History of gestational diabetes mellitus (GDM) in prior , currently : (9) Anxiety: COMMENT: zoloft stopped. Continue counseling 3 X a week. "feels much better off med" (10) Supervision of high-risk : QUALIFIERS: Trimester: third trimester Qualified Code(s): O09.93 - Supervision of high risk , unspecified, third trimester COMMENT: PRR , ISIDRA 03/04/25, boy PC Aleksander Rodriguez, Farzad (11) : QUALIFIERS: Weeks of gestation: 38 weeks Qualified Code(s): Z3A.38 - 38 weeks gestation of COMMENT: GBS neg, declined NIPT & Carrier testing, nl 3 HR GTT, nl anatomy Charges/Coding Multi Select Codes Urinary/Genital Urinary/Genital CPT Codes: No Charge
[2025-02-26] MEDS: Lactated Ringers 1,000 ML 50 ML IV (08:30)
--- OUTSIDE RECORDS SUMMARY | 2025-02-26 08:33 | XMS RPT_ITS | CCD ---
Author Organization [facility] Care Team Providers Care American History Professor Name Role Phone Ricco SANTACRUZ, Dr. Vance Primary Care Provider Dr. Karen Chacko MD Referring Provider 1([facility])[phone] Rainer SANTACRUZ, Dr. Barrera Attending Provider Dr. Holly Spear MD Referring Provider Alycia Torres CNM Attending Provider 1([facility])[phone] Alycia Torres CNM Referring Provider 1([facility])[phone] Sarah Harris DO Attending Provider Dr. Sarah Harris DO Referring Provider [place] MANAGER TRANSITION-C, Shannon Attending Provider 1([facility])[phone] King NEETA, Dr. Up Attending Provider 1([facility])[phone] Ricco SANTACRUZ, Dr. Vance Primary Care Provider 1([facility])[phone] Dr. Karen Chacko MD Referring Provider 1([facility])[phone] Holly Spear MD Attending Provider Dr. Holly Spear MD Referring Provider Dr. Karen Chacko MD Primary Care Provider Dr. Karen Chacko MD Referring Provider [phone] Alycia Torres CNM Attending Provider 1([facility])[phone] Alycia Torres CNM Referring Provider 1([facility])[phone] Dr. Karen Chacko MD Primary Care Physician Dr. Karen Chacko MD Referring Provider 1([facility])[phone] Alycia Torres CNM Attending Physician 1([facility])[phone] Thao MANAGER TRANSITION-C, Shannon Attending Physician [phone] [place], Dr. Up Attending Physician Rainer SANTACRUZ, Dr. Barrera Attending Physician Dr. Holly Spear MD Referring Provider [phone] Jeremie Sharma DO, Dr. Smith Attending Physician Ricco SANTACRUZ, Dr. Vance Primary Care Physician Ricco SANTACRUZ, Dr. Vance Referring Provider [phone] Alycia Torres CNM Attending Physician [phone] Jeremie [...] Dr. Karen Chacko MD Referring Provider [phone] Thao MANAGER TRANSITION-C, Shannon Attending Physician [phone] [place], Dr. [...] Unavailable Chacko, Karen Primary Care Unavailable Thao MANAGER TRANSITION, Shannon Attending Unavailable Holly Spear Attending Unavailable [...] Unavailable Chacko, Karen Primary Care Unavailable Thao MANAGER TRANSITION, Shannon Attending Unavailable Chacko, Karen Referring Unavailable Chacko, Karen Primary Care Unavailable Alycia Torres Attending Unavailable Sarah Harris Attending Unavailabl e Cahcko, Karen Referring Unavailable Chacko, Karen Primary Care [...] Unavailable Chacko, Karen Primary Care Unavailable Thao MANAGER TRANSITION, Shannon Attending Unavailable Chacko, Karen Referring Unavailable [...] extract Drug Allergy 5 Swelling of tongue [facility] (1 source) avocado oil Drug Allergy 5 [facility] Repository Medications Current Medications Medication Drug Class(es) Dates Sig (Normalized) Sig (Original) Flash Glucose Scanning Marion (Freestyle Todd 2 Marion) misc (18 sources) Start: 08-31-2024 Flash Glucose Scanning Marion (Freestyle Todd 2 Marion) misc Active 0 .Route 1 August 30, 2024 11:00pm As directed Start: 08-31-2024 Flash Glucose Scanning Marion (Freestyle Todd 2 Marion) misc Active 0 .Route 1 0 August 31, 2024 12:00am As directed Start: 08-31-2024 Flash Glucose Scanning Marion (Freestyle Todd 2 Marion) misc Active 0 .Route 1 August 31, [...] days, then 2 tabs at supper; Mv-Mn 190-Or-Wy7-Dha-Epa-Fis h 180 mcg-35 mg- 25 mg-5 mg tablet,chewable (19 sources) Start: 07-23-2024 Mv-Mn 110-Fa-O g5-Fcn-Ldc-Fish 180 mcg-35 mg- 25 mg-5 mg tablet,chewable Active {tbl} PO DAILY July 22, 2024 11:00pm Complies with drug therapy Start: 07-23-2024 Start: 07-23-2024 Mv-Mn 110-Fa-O x0-Wvs-Vze-Fish 180 mcg-35 mg- 25 mg-5 mg tablet,chewable Active {tbl} PO DAILY July 23, 2024 12:00am Complies with drug therapy Start: 07-23-2024 Mv-Mn 110-Fa-O i8-Htt-Tth-Fish 180 mcg-35 mg- 25 mg-5 mg tablet,chewable Active {tbl} PO DAILY July 23, 2024 12:00am Pnv No.278-Th-Uv1-Teq-Zcd-Uffm 180 mcg-35 mg- 25 mg-5 mg tablet,chewable (2 sources) Start: 07-23-2024 Pnv No.572-Xu-Mo7-Zir-Rxw-Xqve 180 mcg-35 mg- 25 mg-5 mg tablet,chewable [...] 15, 2018 12:00am July 23, 2024 2:48pm Dwkm31-Tiso Fum-Folic 1 EACH tablet (10 sources) Start: 01-15-2018 End: 07-23-2024 take 1 tablet by mouth once daily Ewgb06-Qdmc Fum-Folic 1 EACH tablet Discontinued 1 NMA PO DAILY January 15, 2018 12:00am July 23, 2024 2:48pm Start: 01-15-2018 End: 07-23-2024 take 1 tablet by mouth once daily Oxij35-Dwlq Fum-Folic 1 EACH tablet Discontinued 1 NMA [...] Comment on above: , ISIDRA 03/04/25, [facility] [place], Aleksander, Farzad PRR ISIDRA 10/27/20 boy Ezekial PC: [place] Spouse: Farzad PRR , ISIDRA , [facility] [place], [place], Farzad PRR , ISIDRA , boy [facility] [place], Aleksander, Farzad Other complications of (20 sources) [...] Test Name Value Interpretation Reference Range Facility Aerospace Engineer Officer Armament Office Visit Reporton 02-21-2025 Aerospace Engineer Officer Armament Office Visit Report [facility] [address], [address] [place] [address] OFFICE VISIT Date of Service: 02/21/25 MR#: [id number] Acct: [id number] Name: BRITTANY ROCA Rep #: [id number] : 1985 Provider: Dr. Holly sweeney MD Age/Sex: 39/F Location: [facility] [place] Status: Signed Intake Vital Signs 01/06/25 08:44 02/17/25 13:49 02/21/25 14:29 Height 5 ft 10 in 5 ft 9 in 5 ft 9 in Weight: 253 lb 6 oz 253 lb 9 oz BMI 37.4 37.4 BP 113/68 134/86 H Intake Visit Reasons: 39wk ob/nst Filling Machine Operator Required: No Is patient in pain?: No Allergies avocado (avacado) Allergy (Intermediate, Verified 02/21/25 14:30) Swelling of tongue Medications ???Medication ???Instructions ???Recorded ???Confirmed ???Type mv-mn 110-FA 180 mcg-om3 35 mg-dha tab PO DAILY 07/23/24 02/21/25 H istory 25 mg-epa 5 mg-fish oil chew tablet flash glucose scanning reader #1 ea 08/31/24 02/21/25 Rx (FreeStyle Todd 2 Marion) flash glucose sensor (FreeStyle #1 ea 08/31/24 [...] current occupational status: employed 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 Normal [facility] - Chemistry and C hemistry - challengeOrdered By: Alycia Torres on 02-17-2025 Glucose Ql (U) Negative [facility] - UrinalysisOrder ed By: Alycia Torres on 02-17-2025 Protein Ql (U) Negative [facility] Aerospace Engineer Officer Armament Office Visit Reporton 02-17-2025 Aerospace Engineer Officer Armament Office Visit Report [facility] [address], [address] [place] [address] OFFICE VISIT Date of Service: 02/17/25 MR#: [id number] Acct: [id number] Name: BRITTANY ROCA Rep #: [id number] : 1985 Provider: RALPH Meier ams Age/Sex: 39/F Location: [facility] [place] Status: Signed Intake Vital Signs 01/06/25 08:44 02/10/25 13:41 02/14/25 08:46 02/17/25 13:49 Height 5 ft 10 in 5 ft 9 in 5 ft 9 in 5 ft 9 in Weight: 253 lb 6 oz BMI 37.4 BP 113/68 Intake Visit Reasons: 38wk NST ONLY Filling Machine Operator Required: No Is patient in pain?: No Allergies avocado (avacado) Allergy (Intermediate, Verified 02/17/25 13:52) Swelling of tongue Medications ???Medication ???Instructions ???Recorded ???Confirmed ???Type mv-mn 110-FA 180 mcg-om3 35 mg-dha tab PO DAILY 07/23/24 02/17/25 H istory 25 mg-epa 5 mg-fish oil chew tablet flash glucose scanning reader #1 ea 08/31/24 02/17/25 Rx (FreeStyle Todd 2 Marion) flash glucose sensor (FreeStyle #1 ea 08/31/24 [...] current occupational status: employed 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 Normal [facility] - Chemistry and C hemistry - challengeOrdered By: Sarah Sharma on 02-14-2025 Glucose Ql (U) Negative [facility] - UrinalysisOrder ed By: Sarah Sharma on 02-14-2025 Protein Ql (U) Negative [facility] Aerospace Engineer Officer Armament Office Visit Reporton 02-14-2025 Aerospace Engineer Officer Armament Office Visit Report [facility] [address], [address] [place] [address] OFFICE VISIT Date of Service: 02/14/25 MR#: [id number] Acct: [id number] Name: BRITTANY ROCA Rep #: [id number] : 1985 Provider: Dr. Sarah Ortiz DO Age/Sex: 39/F Location: [facility] [place] Status: Signed Intake Vital Signs 01/06/25 08:44 02/07/25 08:26 02/10/25 13:41 02/14/25 08:46 Height 5 ft 10 in 5 ft 9 in 5 ft 9 in 5 ft 9 in Weight: 251 lb 3 oz BMI 37.0 BP 121/76 H Intake Visit Reasons: 38wk ob/nst Chief Complaint: 38wk OB/NST Filling Machine Operator Required: No Is patient in pain?: No Allergies avocado (avacado) Allergy (Intermediate, Verified 02/14/25 08:45) Swelling of tongue Medications ???Medication ???Instructions ???Recorded ???Confirmed ???Type mv-mn 110-FA 180 mcg-om3 35 mg-dha tab PO DAILY 07/23/24 02/14/25 H istory 25 mg-epa 5 mg-fish oil chew tablet flash glucose scanning reader #1 ea 08/31/24 02/14/25 Rx (FreeStyle Todd 2 Marion) flash glucose sensor (FreeStyle #1 ea 08/31/24 [...] current occupational status: employed 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 Normal [facility] - Chemistry and C hemistry - challengeOrdered By: Alycia Torres on 02-10-2025 Glucose Ql (U) Negative [facility] - UrinalysisOrder ed By: Alycia Torres on 02-10-2025 Protein Ql (U) Negative [facility] Aerospace Engineer Officer Armament Office Visit Reporton 02-10-2025 Aerospace Engineer Officer Armament Office Visit Report [facility] [address], [address] [place] [address] OFFICE VISIT Date of Service: 02/10/25 MR#: [id number] Acct: [id number] Name: BRITTANY ROCA Rep #: [id number] : 1985 Provider: RALPH Meier ams Age/Sex: 39/F Location: [facility] [place] Status: Signed Intake Vital Signs 01/06/25 08:44 02/07/25 08:26 02/10/25 13:40 02/10/25 13:41 Height 5 ft 10 in 5 ft 9 in 5 ft 9 in 5 ft 9 in Weight: 253 lb BMI 37.3 BP 128/84 H Intake Visit Reasons: 37wk NST ONLY Filling Machine Operator Required: No Is patient in pain?: No Allergies avocado (avacado) Allergy (Intermediate, Verified 02/10/25 13:40) Swelling of tongue Medications ???Medication ???Instructions ???Recorded ???Confirmed ???Type mv-mn 110-FA 180 mcg-om3 35 mg-dha tab PO DAILY 07/23/24 02/10/25 H istory 25 mg-epa 5 mg-fish oil chew tablet flash glucose scanning reader #1 ea 08/31/24 02/10/25 Rx (FreeStyle Todd 2 Marion) flash glucose sensor (FreeStyle #1 ea 08/31/24 [...] current occupational status: employed 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 Normal [facility] Rule out Beta Strep (Grp. B) on 02-10-2025 DEMETRA Group B Beta Streptococcus is not isolated. Normal [facility] Comment on above: Performed By: #### M [id number] ####[facility] [id number] [place], [place], [id number] Screening beta-hemolytic Str eptococcus cultureOrdered By: Holly Spear on 10-28-2025 Beta-hemolytic Streptococcus culture Group B Beta Streptococcus is not isolated. [facility] - Chemistry and C hemistry - challengeOrdered By: Holly Spear on 02-07-2025 Glucose Ql (U) Negative [facility] - UrinalysisOrder ed By: Holly Brasherbridgetmeredith on 02-07-2025 Protein Ql (U) Negative [facility] Aerospace Engineer Officer Armament Office Visit Reporton 02-07-2025 Aerospace Engineer Officer Armament Office Visit Report [facility], [address] [place] [address] OFFICE VISIT Date of Service: 02/07/25 MR#: [id number] Acct: [id number] Name: BRITTANY ROCA Rep #: [id number] : 1985 Provider: Dr. Holly sweeney MD Age/Sex: 39/F Location: [facility] [place] Status: Signed Intake Vital Signs 01/06/25 08:44 01/31/25 08:41 02/03/25 13:38 02/07/25 08:26 Height 5 ft 10 in 5 ft 9 in 5 ft 9 in 5 ft 9 in Weight: 252 lb 4 oz 249 lb 6 oz 251 lb 3 oz BMI 37.2 36.8 37.0 BP 103/72 114/74 122/73 H Intake Visit Reasons: 37wk ob/nst Filling Machine Operator Required: No Is patient in pain?: No Allergies avocado (avacado) Allergy (Intermediate, Verified 02/07/25 08:27) Swelling of tongue Medications ???Medication ???Instructions ???Recorded ???Confirmed ???Type mv-mn 110-FA 180 mcg-om3 35 mg-dha tab PO DAILY 07/23/24 02/07/25 H istory 25 mg-epa 5 mg-fish oil chew tablet flash glucose scanning reader #1 ea 08/31/24 02/07/25 Rx (FreeStyle Todd 2 Marion) flash glucose sensor (FreeStyle #1 ea 08/31/24 [...] current occupational status: employed 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 Normal [facility] - Chemistry and C hemistry - challengeOrdered By: Alycia Torres on 02-03-2025 Glucose Ql (U) Negative [facility] - UrinalysisOrder ed By: Alycia Torres on 02-03-2025 Protein Ql (U) Negative [facility] Aerospace Engineer Officer Armament Office Visit Reporton 02-03-2025 Aerospace Engineer Officer Armament Office Visit Report [facility] [address] [place] [address], [address] [place] [address] OFFICE VISIT Date of Service: 02/03/25 MR#: [id number] Acct: [id number] Name: BRITTANY ROCA Rep #: [id number] : 1985 Provider: RALPH Meier ams Age/Sex: 39/F Location: [facility] [place] Status: Signed Intake Vital Signs 01/06/25 08:44 01/24/25 10:21 01/31/25 08:41 02/03/25 13:38 Height 5 ft 10 in 5 ft 10 in 5 ft 9 in 5 ft 9 in Weight: 249 lb 6 oz BMI 36.8 BP 114/74 Intake Visit Reasons: 36wk NST ONLY Filling Machine Operator Required: No Is patient in pain?: No Allergies avocado (avacado) Allergy (Intermediate, Verified 02/03/25 13:39) Swelling of tongue Medications ???Medication ???Instructions ???Recorded ???Confirmed ???Type mv-mn 110-FA 180 mcg-om3 35 mg-dha tab PO DAILY 07/23/24 02/03/25 H istory 25 mg-epa 5 mg-fish oil chew tablet flash glucose scanning reader #1 ea 08/31/24 02/03/25 Rx (FreeStyle Todd 2 Marion) flash glucose sensor (FreeStyle #1 ea 08/31/24 [...] 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 (more content not included)... Normal [facility] - Chemistry and C hemistry - challengeOrdered By: Alycia Torres on 01-31-2025 Glucose Ql (U) Negative [facility] - UrinalysisOrder ed By: Alycia Torres on 01-31-2025 Protein Ql (U) Negative [facility] Aerospace Engineer Officer Armament Office Visit Reporton 01-31-2025 Aerospace Engineer Officer Armament Office Visit Report [facility] [address] [place] [address], [address] [place] [address] OFFICE VISIT Date of Service: 01/31/25 MR#: [id number] Acct: [id number] Name: BRITTANY ROCA Rep #: [id number] : 1985 Provider: RALPH Meier ams Age/Sex: 39/F Location: [facility] [place] Status: Signed Intake Vital Signs 01/06/25 08:44 01/17/25 09:59 01/27/25 15:11 01/31/25 08:41 Height 5 ft 10 in 5 ft 10 in 5 ft 9 in 5 ft 9 in Weight: 252 lb 4 oz BMI 37.2 BP 103/72 Intake Visit Reasons: 36wk ob/nst Chief Complaint: 36wk OB/NST Filling Machine Operator Required: No Is patient in pain?: No Allergies avocado (avacado) Allergy (Intermediate, Verified 01/31/25 08:38) Swelling of tongue Medications ???Medication ???Instructions ???Recorded ???Confirmed ???Type mv-mn 110-FA 180 mcg-om3 35 mg-dha tab PO DAILY 07/23/24 01/31/25 H istory 25 mg-epa 5 mg-fish oil chew tablet flash glucose scanning reader #1 ea 08/31/24 01/31/25 Rx (FreeStyle Todd 2 Marion) flash glucose sensor (FreeStyle #1 ea 08/31/24 [...] 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 ?-???-???-???-???- (more content not included)... Normal [facility] - Chemistry and C hemistry - challengeOrdered By: Alycia Torres on 01-27-2025 Glucose Ql (U) Negative [facility] - UrinalysisOrder ed By: Alycia Torres on 01-27-2025 Protein Ql (U) Negative [facility] OB Biophysical Prof W/O NSTo n 01-27-2025 OB Biophysical Prof W/O NST [facility] Services [address] [place] [address] OB Biophysical Prof W/O NST MR#: [id number] Acct: [id number] Name: BRITTANY ROCA Rep #: [id number] : 1985 F 39 From: Pee Ruvalcaba MD PCP: Dr. Karen Chacko MD Status: REG CLI Study: OB Biophysical Prof W/O NST Date of Exam: 01/12 10/06 Exam# [id number] Ordering Dr: Alycia Torres M PROCEDURE: OB [...] weeks and 6 days gestation. Reading Location: [address] CC: RALPH Torres; Dr. Karen Chacko MD Professional Wrestler: Signed Normal [facility] OB Triage Physician Noteon 1 OB Triage Physician Note [facility] Medical Records Department [address] [place] [address] OB Triage Physician Note 01/27/25 1745 MR#: [id number] Acct: [id number] Name: BRITTANY ROCA Rep #: [id number] : 1985 39 From: Sarah Harris DO PCP: Dr. 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 Normal [facility] Aerospace Engineer Officer Armament Office Visit Reporton 01-27-2025 Aerospace Engineer Officer Armament Office Visit Report [facility] [address], [address] [place] [address] OFFICE VISIT Date of Service: 01/27/25 MR#: [id number] Acct: [id number] Name: BRITTANY ROCA Rep #: [id number] : 1985 Provider: RALPH Meier ams Age/Sex: 39/F Location: [facility] [place] Status: Signed Intake Vital Signs 01/06/25 08:44 01/24/25 10:21 01/27/25 14:01 Height 5 ft 10 in 5 ft 10 in 5 ft 10 in Weight: 250 lb 7 oz 249 lb 1 oz BMI 35.9 35.7 BP 103/69 113/74 Intake Visit Reasons: 35wk NST ONLY Filling Machine Operator Required: No Is patient in pain?: No Allergies avocado (avacado) Allergy (Intermediate, Verified 01/27/25 14:03) Swelling of tongue Medications ???Medication ???Instructions ???Recorded ???Confirmed ???Type mv-mn 110-FA 180 mcg-om3 35 mg-dha tab PO DAILY 07/23/24 01/27/25 H istory 25 mg-epa 5 mg-fish oil chew tablet flash glucose scanning reader #1 ea 08/31/24 01/27/25 Rx (FreeStyle Todd 2 Marion) flash glucose sensor (FreeStyle #1 ea 08/31/24 [...] current occupational status: employed 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 ??-?? (more content not included)... Normal [facility] - Chemistry and C hemistry - challengeOrdered By: Alycia Torres on 01-24-2025 Glucose Ql (U) Negative [facility] - UrinalysisOrder ed By: Alycia Torres on 01-24-2025 Protein Ql (U) Negative [facility] Aerospace Engineer Officer Armament Office Visit Reporton 01-24-2025 Aerospace Engineer Officer Armament Office Visit Report [facility] [address], [address] [place] [address] OFFICE VISIT Date of Service: 01/24/25 MR#: [id number] Acct: [id number] Name: BRITTANY ROCA Rep #: [id number] : 1985 Provider: RALPH Meier ams Age/Sex: 39/F Location: [facility] [place] Status: Signed Intake Vital Signs 09/25/25 08:44 01/17/25 09:59 01/20/25 14:02 01/24/25 10:21 Height 5 ft 10 in 5 ft 10 in 5 ft 10 in 5 ft 10 in Weight: 244 lb 9 oz 247 lb 7 oz 250 lb 7 oz BMI 35.1 35.4 35.9 BP 106/68 112/70 103/69 Intake Visit Reasons: 35wk ob/nst Chief Complaint: 35wk OB Filling Machine Operator Required: No Is patient in pain?: No Allergies avocado (avacado) Allergy (Intermediate, Verified 01/24/25 10:19) Swelling of tongue Medications ???Medication ???Instructions ???Recorded ???Confirmed ???Type mv-mn 110-FA 180 mcg-om3 35 mg-dha tab PO DAILY 07/23/24 01/24/25 H istory 25 mg-epa 5 mg-fish oil chew tablet flash glucose scanning reader #1 ea 08/31/24 01/24/25 Rx (FreeStyle Todd 2 Marion) flash glucose sensor (FreeStyle #1 ea 08/31/24 [...] 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 05 (more content not included)... Normal [facility] - Chemistry and C hemistry - challengeOrdered By: Alycia Torres on 01-20-2025 Glucose Ql (U) Negative [facility] - UrinalysisOrder ed By: Alycia Torres on 01-20-2025 Protein Ql (U) [facility] [employer] Engineer [employer] Office Visit Reporton 01-20-2025 Aerospace Engineer Officer Armament Office Visit Report [facility] [address], [address] [place] [address] OFFICE VISIT Date of Service: 01/20/25 MR#: [id number] Acct: [id number] Name: BRITTANY ROCA Rep #: [id number] : 1985 Provider: RALPH Meier ams Age/Sex: 39/F [place] [facility] [place] Status: Signed Intake Vital Signs 01/06/25 08:44 01/17/25 09:59 01/20/25 14:02 Height 5 ft 10 in 5 ft 10 in 5 ft 10 in Weight: 244 lb 9 oz 247 lb 7 oz BMI 35.1 35.4 BP 106/68 112/70 Intake Visit Reasons: 34wk NST ONLY Filling Machine Operator Required: No Is patient in pain?: No Allergies avocado (avacado) Allergy (Intermediate, Verified 01/20/25 14:06) Swelling of tongue Medications ???Medication ???Instructions ???Recorded ???Confirmed ???Type mv-mn 110-FA 180 mcg-om3 35 mg-dha tab PO DAILY 07/23/24 01/20/25 H istory 25 mg-epa 5 mg-fish oil chew tablet flash glucose scanning reader #1 ea 08/31/24 01/20/25 Rx (FreeStyle Tdod 2 Marion) flash glucose sensor (FreeStyle #1 ea 08/31/24 [...] current occupational status: employed 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 Normal [facility] - Chemistry and C hemistry - challengeOrdered By: Shannon Osuna on 01-17-2025 Glucose Ql (U) Negative [facility] - UrinalysisOrder ed By: Shannon Osuna on 01-17-2025 Protein Ql (U) Negative [facility] [employer] Engineer [employer] Office Visit Reporton 01-17-2025 Aerospace Engineer Officer Armament Office Visit Report [address], [address] [place] [address] OFFICE VISIT Date of Service: 01/17/25 MR#: [id number] Acct: [id number] Name: BRITTANY ROCA Rep #: [id number] : 1985 Provider: CARROLL munoz Age/Sex: 39/F Location[place] [facility] [place] Status: Signed with Addenda ADDENDUM by Ro Zuniga on 01/17/25 at 1055 Office Procedure Documentation entered by Ro Zuniga 01/17/25 10:55: Immunizations Flucelvax [id number] (PF) 45 mcg (15 mcg x 3)/0.5 mL IM syringe Performing Provider: Shannon Osuna MANAGER TRANSITION, MANAGER TRANSITION-C Performing Location: [facility] Administered by: Ro Zuniga on 01/17/25 10:54 Dose Route Admin Location Dispensed Lot Number Expiration Date Package NDC NDC Construction Representative 0.5 mL IM Left Deltoid 0.5 mL [id number] 08/21/25 36686-123-49 [id number] [employer]. VIS Given Date VIS Provided VIS Publication [...] 34wk ob/nst Chief Complaint: 34 Week OB/NST Filling Machine Operator Required: No Is patient in pain?: No Allergies avocado (avacado) Allergy (Intermediate, Verified 01/17/25 09:59) Swelling of tongue Medications ???Medication ???Instructions ???Recorded ???Confirmed ???Type mv-mn 110-FA 180 mcg-om3 35 mg-dha tab PO DAILY 07/23/24 01/17/25 H istory 25 mg-epa 5 mg-fish oil chew tablet flash glucose scanning reader #1 ea 08/31/24 01/17/25 Rx (FreeStyle Todd 2 [place]) flash glucose sensor (FreeStyle #1 ea 08/31/24 [...] 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 ?-???-???- (more content not included)... Normal [facility] - Chemistry and C hemistry - challengeOrdered By: Alycia Torres on 01-14-2025 Glucose Ql (U) Negative [facility] - UrinalysisOrder ed By: Alycia Torres on 01-14-2025 Protein Ql (U) Negative [facility] Aer[employer] Engineer Officer [employer] Office Visit Reporton 01-14-2025 Aerospace Engineer Officer Armament Office Visit Report [facility] [address], [address] [place] [address] OFFICE VISIT Date of Service: 01/14/25 MR#: [id number] Acct: [id number] Name: BRITTANY ROCA Rep #: [id number] : 1985 Provider: RALPH Meier ams Age/Sex: 39/F Location[place] [facility] [place] Status: Signed Intake Vital Signs 01/06/25 08:44 01/11/25 09:01 01/14/25 08:08 Height 5 ft 10 in 5 ft 10 in 5 ft 10 in Weight: 247 lb 3 oz BMI 35.4 BP 116/71 Intake Visit Reasons: 33wk ob/nst Filling Machine Operator Required: No Is patient in pain?: No Allergies avocado (avacado) Allergy (Intermediate, Verified 01/14/25 08:13) Swelling of tongue Medications ???Medication ???Instructions ???Recorded ???Confirmed ???Type mv-mn 110-FA 180 mcg-om3 35 mg-dha tab PO DAILY 07/23/24 01/14/25 H istory 25 mg-epa 5 mg-fish oil chew tablet flash glucose scanning reader #1 ea 08/31/24 01/14/25 Rx (FreeStyle Todd 2 [place]) flash glucose sensor (FreeStyle #1 ea 08/31/24 [...] current occupational status: employed 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 ? (more content not included)... Normal [facility] - Chemistry and C hemistry - challengeOrdered By: Sarah Sharma on 01-11-2025 Glucose Ql (U) Negative [facility] - UrinalysisOrder ed By: Sarah Sharma on 01-11-2025 Protein Ql (U) Negative [facility] Aerospace Engineer Officer Armament Office Visit Reporton 01-11-2025 Aerospace Engineer Officer Armament Office Visit Report [facility] [address], [address] [place] [address] OFFICE VISIT Date of Service: 01/11/25 MR#: [id number] Acct: [id number] Name: BRITTANY ROCA Rep #: [id number] : 1985 Provider: Dr. Sarah Ortiz DO Age/Sex: 39/F Location: [facility] [place] Status: Signed Intake Vital Signs 01/06/25 08:44 01/11/25 09:01 01/11/25 09:01 Height 5 ft 10 in 5 ft 10 in 5 ft 10 in Weight: 243 lb 5 oz 247 lb 2 oz BMI 34.9 35.4 BP 105/65 108/67 Intake Visit Reasons: 33wk NST ONLY Filling Machine Operator Required: No Is patient in pain?: No Allergies avocado (avacado) Allergy (Intermediate, Verified 01/11/25 09:00) Swelling of tongue Medications ???Medication ???Instructions ???Recorded ???Confirmed ???Type mv-mn 110-FA 180 mcg-om3 35 mg-dha tab PO DAILY 07/23/24 01/11/25 H istory 25 mg-epa 5 mg-fish oil chew tablet flash glucose scanning reader #1 ea 08/31/24 01/11/25 Rx (FreeStyle Todd 2 Marion) flash glucose sensor (FreeStyle #1 ea 08/31/24 [...] current occupational status: employed 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 ? (more content not included)... Normal [facility] - Chemistry and C hemistry - challengeOrdered By: Shannon Osuna on 01-06-2025 Glucose Ql (U) Negative [facility] - UrinalysisOrder ed By: Shannon Osuna on 01-06-2025 Protein Ql (U) Negative [facility] Aerospace Engineer Officer Armament Office Visit Reporton 01-06-2025 Aerospace Engineer Officer Armament Office Visit Report [facility] [address], [address] [place] [address] OFFICE VISIT Date of Service: 01/06/25 MR#: [id number] Acct: [id number] Name: BRITTANY ROCA Rep #: [id number] : 1985 Provider: CARROLL munoz Age/Sex: 39/F Location: [facility] [place] Status: Signed Intake Vital Signs 11/25/24 09:54 12/28/24 15:10 01/06/25 08:44 Height 5 ft 10 in 5 ft 10 in 5 ft 10 in Weight: 243 lb 5 oz BMI 34.9 BP 105/65 Intake Visit Reasons: 32 wk ob Chief Complaint: 32 Week OB Filling Machine Operator Required: No Is patient in pain?: No Allergies avocado (avacado) Allergy (Intermediate, Verified 01/06/25 08:46) Swelling of tongue Medications ???Medication ???Instructions ???Recorded ???Confirmed ???Type mv-mn 110-FA 180 mcg-om3 35 mg-dha tab PO DAILY 07/23/24 01/06/25 H istory 25 mg-epa 5 mg-fish oil chew tablet flash glucose scanning reader #1 ea 08/31/24 01/06/25 Rx (FreeStyle Todd 2 Marion) flash glucose sensor (FreeStyle #1 ea 08/31/24 [...] current occupational status: employed 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 ??-???-??? (more content not included)... Normal [facility] - Chemistry and C hemistry - challengeOrdered By: Shannon Osuna on 12-28-2024 Glucose Ql (U) Negative [facility] - UrinalysisOrder ed By: Shannon Osuna on 12-28-2024 Protein Ql (U) Negative [facility] Aerospace Engineer Officer Armament Office Visit Reporton 12-28-2024 Aerospace Engineer Officer Armament Office Visit Report [facility] [address], [address] [place] [address] OFFICE VISIT Date of Service: 12/28/24 MR#: [id number] Acct: [id number] Name: BRITTANY ROCA Rep #: [id number] : 1985 Provider: CARROLL munoz Age/Sex: 39/F Location: [facility] [place] Status: Signed Intake Vital Signs 12/22/24 14:07 12/28/24 15:10 Height 5 ft 10 in 5 ft 10 in Weight: 241 lb 6 oz BMI 34.6 BP 102/66 Intake Visit Reasons: increased mood swings concerns -per sm Chief Complaint: mood concerns Filling Machine Operator Required: No Is patient in pain?: No Allergies avocado (avacado) Allergy (Intermediate, Verified 12/28/24 15:10) Swelling of tongue Medications ???Medication ???Instructions ???Recorded ???Confirmed ???Type mv-mn 110-FA 180 mcg-om3 35 mg-dha tab PO DAILY 07/23/24 12/28/24 H istory 25 mg-epa 5 mg-fish oil chew tablet flash glucose scanning reader #1 ea 08/31/24 12/28/24 Rx (FreeStyle Todd 2 Marion) flash glucose sensor (FreeStyle #1 ea 08/31/24 [...] 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 Normal [facility] - Chemistry and C hemistry - challengeOrdered By: Alycia Torres on 12-22-2024 Glucose Ql (U) Negative [facility] - UrinalysisOrder ed By: Alycia Torres on 12-22-2024 Protein Ql (U) Negative [facility] Aerospace Engineer Officer Armament Office Visit Reporton 12-22-2024 Aerospace Engineer Officer Armament Office Visit Report [facility], [address] [place] [address] OFFICE VISIT Date of Service: 12/22/24 MR#: [id number] Acct: [id number] Name: BRITTANY ROCA Rep #: [id number] : 1985 Provider: RALPH Meier ams Age/Sex: 39/F Location: [facility] [place] Status: Signed Intake Vital Signs 09/27/24 10:22 11/25/24 09:54 12/22/24 14:07 Height 5 ft 10 in 5 ft 10 in 5 ft 10 in Weight: 241 lb 8 oz BMI 34.6 BP 113/79 Intake Visit Reasons: 30wk ob Chief Complaint: 30wk OB Filling Machine Operator Required: No Is patient in pain?: No [...] ea 08/31/24 12/22/24 Rx (FreeStyle Todd 2 Marion) flash glucose sensor (FreeStyle #1 ea 08/31/24 [...] 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 ?-?? (more content not included)... Normal [facility] Absolute lymphocyte countOrd ered By: Holly Rainer on 11-25-2024 Lymphocytes Auto (Unsp spec) [#/Vol] 1.73 10*3/uL 0.83-4.51 [facility] Absolute neutrophil countOrd ered By: Holly Rainer on 11-25-2024 Neutrophils (Bld) [#/Vol] 6.3 10*3/uL 2.0-7.7 [facility] Automated lymphocyte count a s percentage of total leukocytesOrdered By: Holly Spear on 11-25-2024 Lymphocytes/100 WBC Auto (Unsp spec) 20.3 % 19-41 [facility] Basophil percentageOrdered B y: Holly Spear on 11-25-2024 Basophils/100 WBC (Bld) 0.2 % 0-1 [facility] CBC W/Diff, Automatedon 11-12 Absolute Lymph 1.73 X10 3/uL Normal 0.83-4.51 [facility] Comment on above: Performed By: #### L 100.0100, L3890.6006, L509.8002 ####[facility] [address] [place], [address] Absolute Neut 6.3 X10 3/uL Normal 2.0-7.7 [facility] Comment on above: Performed By: #### L 100.0100, L3890.6006, L509.8002 ####[facility] [address] [place], [address] Basophils/100 WBC (Bld) 0.2 % Normal 0-1 [facility] Comment on above: Performed By: #### L 100.0100, L3890.6006, L509.8002 ####[facility] [address] [place], [address] Eosinophils/100 WBC (Bld) 0.8 % Normal 0-5 [facility] Comment on above: Performed By: #### L 100.0100, L3890.6006, L509.8002 ####[facility] [address] [place], [address] Erythrocyte distribution width (RBC) [Ratio] 12.7 % Normal 11.6-14.6 [facility] Comment on above: Performed By: #### L 100.0100, L3890.6006, L509.8002 ####[facility] [address] [place], [address] Hematocrit (Bld) [Volume fraction] 35.2 % Low 37-47 [facility] Comment on above: Performed By: #### L 100.0100, L3890.6006, L509.8002 ####[facility] [address] [place], [address] Hemoglobin (Bld) [Mass/Vol] 11.9 g/dL Low 12.0-15.0 [facility] Comment on above: Performed By: #### L 100.0100, L3890.6006, L509.8002 ####[facility] [address] [place], [address] IG% 0.200 Normal 0.0-0.9 [facility] Comment on above: Result Comment: IG% - Immature Granulocytes (promyelocytes, myelocytes and metamyelocytes) > 1% indicates that a LEFT SHIFT is Present. Performed By: #### L 100.0100, L3890.6006, L509.8002 ####[facility] [address] [place], [address] Lymphocytes/100 WBC (Bld) 20.3 % Normal 19-41 [facility] Comment on above: Performed By: #### L 100.0100, L3890.6006, L509.8002 ####[facility] [address] [place], [address] MCH (RBC) [Entitic mass] 31.6 pg Normal 27.0-32.0 [facility] Comment on above: Performed By: #### L 100.0100, L3890.6006, L509.8002 ####[facility] [address] [place], [address] MCHC (RBC) [Mass/Vol] 33.8 g/dL Normal 32-[address] [facility] Comment on above: Performed By: #### L 100.0100, L3890.6006, L509.8002 ####[facility] [address] [place], [address] MCV (RBC) [Entitic vol] 93.6 fL Normal 81-99 [facility] Comment on above: Performed By: #### L 100.0100, L3890.6006, L509.8002 ####[facility] [address] [place], [address] Monocytes/100 WBC (Bld) 4.7 % Normal 0-10 [facility] Comment on above: Performed By: #### L 100.0100, L3890.6006, L509.8002 ####[facility] [address] [place], [address] Neutrophils/100 WBC (Bld) 73.8 % High 47-70 [facility] Comment on above: Performed By: #### L 100.0100, L3890.6006, L509.8002 ####[facility] [address] [place], [address] Nucleated RBC (Bld) [#/Vol] 0 10*3/uL Normal 0-5 [facility] Comment on above: Performed By: #### L 100.0100, L3890.6006, L509.8002 ####[facility] [address] [place], [address] Platelet mean volume (Bld) [Entitic vol] 12.1 fL High 6.2-12.0 [facility] Comment on above: Performed By: #### L 100.0100, L3890.6006, L509.8002 ####[facility] [address] [place], [address] Platelets (Bld) [#/Vol] 245 10*3/uL Normal 150-450 [facility] Comment on above: Performed By: #### L 100.0100, L3890.6006, L509.8002 ####[facility] [address] [place], [address] RBC (Bld) [#/Vol] 3.76 10*6/uL Low 4.2-5.4 [facility] Comment on above: Performed By: #### L 100.0100, L3890.6006, L509.8002 ####[facility] [address] [place], [address] RDW SD 43.4 fl Normal 35.1-43.9 [facility] Comment on above: Performed By: #### L 100.0100, L3890.6006, L509.8002 ####[facility] [address] [place], [place], [address] WBC (Bld) [#/Vol] 8.5 10*3/uL Normal 4.4-11.0 [facility] Comment on above: Performed By: #### L 100.0100, L3890.6006, L509.8002 ####[facility] [address] [place], [address] Eosinophil percentageOrdered By: Holly Spear on 11-25-2024 Eosinophils/100 WBC (Bld) 0.8 % 0-5 [facility] Erythrocyte distribution wid th ratioOrdered By: Holly Spear on 11-25-2024 Erythrocyte distribution width (RBC) [Ratio] 12.7 % 11.6-14.6 [facility] Erythrocyte distribution wid th standard deviationOrdered By: Holly Spear on 11-25-2024 Erythrocyte distribution width (RBC) [Ratio] 43.4 fl 35.1-43.9 [facility] HIVon 11-25-2024 HIV Non-Reactive Normal Nonreactive [facility] Comment on above: Result Comment: Non- Reactive Reactive Repeatedly reactive samples must be confirmed according to CDC recommended confirmatory algorithms. The subresults for either HIVAG or AHIV can be used as an aid in the selection of the confirmation algorithm for reactive samples. Send out specimens with Reactive results to [facility] for confirmation. Order the HIV antibody detection and differentiation: #[id number] Performed By: #### L 100.0100, L3890.6006, L509.8002 ####[facility] [address] [place], [place], [address] Hematocrit Auto (Bld) [Volum e fraction]Ordered By: Holly Spear on 11-25-2024 Hematocrit (Bld) [Volume fraction] 35.2 % Low 37-47 [facility] Hemoglobin measurementOrdere d By: Holly Spear on 11-25-2024 Hemoglobin (Bld) [Mass/Vol] 11.9 g/dL Low 12.0-15.0 [facility] Immature granulocytes/100 WB C Auto (Bld)Ordered By: Holly Spear on 11-25-2024 Immature granulocytes/100 WBC (Bld) 0.200 % 0.0-0.9 [facility] Comment on above: IG% - Immature Granu locytes (promyelocytes, myelocytes and metamyelocytes) > 1% indicates that a LEFT SHIFT is Present. Laboratory - Chemistry and C hemistry - challengeOrdered By: Holly Spear on 11-25-2024 Glucose Ql (U) Negative [facility] - UrinalysisOrder ed By: Holly Spear on 11-25-2024 Protein Ql (U) Negative [facility] MCV (mean corpuscular volume ) determinationOrdered By: Holly Spear on 11-25-2024 MCV (RBC) [Entitic vol] 93.6 fL 81-99 [facility] Mean corpuscular hemoglobin (MCH) determinationOrdered By: Holly Spear on 11-25-2024 MCH (RBC) [Entitic mass] 31.6 pg 27.0-32.0 [facility] Mean corpuscular hemoglobin concentration (MCHC) determinationOrdered By: Holly Spear on 11-25-2024 MCHC (RBC) [Mass/Vol] 33.8 g/dL 32-[address] [facility] Mean platelet volume determi nationOrdered By: Holly Spear on 11-25-2024 Platelet mean volume (Bld) [Entitic vol] 12.1 fL High 6.2-12.0 [facility] Monocyte percentageOrdered B y: Holly Spear on 11-25-2024 Monocytes/100 WBC (Bld) 4.7 % 0-10 [facility] Neutrophil percentageOrdered By: Holly Spear on 11-25-2024 Neutrophils/100 WBC (Bld) 73.8 % High 47-70 [facility] No Panel InformationOrdered By: Holly Spear on 11-25-2024 HIV (1&2) Antibody Non-Reactive Nonreactive [facility] Comment on above: Non-ReactiveReactive Repeatedly reactive samples must be confirmed according to CDC recommended confirmatory algorithms. The subresults for either HIVAG or AHIV can be used as an aid in the selection of the confirmation algorithm for reactive samples.Send out specimens with Reactive results to [facility] for confirmation.Order the HIV antibody detection and differentiation: #[id number] Nucleated red blood cell per centageOrdered By: Holly Spear on 11-25-2024 Nucleated RBC/100 WBC (Bld) [Ratio] 0 % 0-5 [facility] [employer] Engineer Officer [employer] Office Visit Reporton 11-25-2024 Aerospace Engineer Officer Armament Office Visit Report [facility] [address], [address] [place] [address] OFFICE VISIT Date of Service: 11/25/24 MR#: [id number] Acct: [id number] Name: BRITTANY ROCA Rep #: [id number] : 1985 Provider: Dr. 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 Normal [facility] Platelet countOrdered By: Isaiah Spear on 11-25-2024 Platelets (Bld) [#/Vol] 245 10*3/uL 150-450 [facility] RBC Auto (Bld) [#/Vol]Ordere d By: Holly Spear on 11-25-2024 RBC (Bld) [#/Vol] 3.76 10*6/uL Low 4.2-5.4 [facility] Syphilis Antibodieson 2024 Syphilis Abs Non-Reactive Normal Nonreactive [facility] Comment on above: Performed By: #### L 100.0100, L3890.6006, L509.8002 ####[facility] [address] [place], [place], [id number] White blood cell (WBC) count Ordered By: Holly Spear on 11-25-2024 WBC (Bld) [#/Vol] 8.5 10*3/uL 4.4-11.0 [facility] Endocrinology Visit Reporton 10-28-2024 Endocrinology Visit Report [facility] 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 Normal [facility] - Chemistry and C hemistry - challengeOrdered By: Shannon Osuna on 10-25-2024 Glucose Ql (U) Negative [facility] - UrinalysisOrder ed By: Shannon Osuna on 10-25-2024 Protein Ql (U) Negative [facility] [employer] Visit Reporton 10-25-2024 Aerospace Engineer Officer Armament Office Visit Report [facility]'[address], [address] [place] [address] OFFICE VISIT Date of Service: 10/25/24 MR#: [id number] Acct: [id number] Name: BRITTANY ROCA Rep #: [id number] : 1985 Provider: CARROLL munoz Age/Sex: 39/F Location[place] [facility] [place] Status: Signed Intake Vital Signs 07/28/24 09:50 09/27/24 10:22 10/25/24 10:15 Height 5 ft 10 in 5 ft 10 in 5 ft 10 in Weight: 236 lb 2 oz BMI 33.8 BP 122/70 H Intake Visit Reasons: 22wk ob Chief Complaint: 22 Week OB Filling Machine Operator Required: No Is patient in pain?: No [...] ea 08/31/24 10/25/24 Rx (FreeStyle [place] 2 [place]) flash glucose sensor (FreeStyle #1 ea 08/31/24 [...] current occupational status: employed 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 Normal [facility] Urine Cultureon 09-28-2024 URC Mixed Gram Pos Gram Neg Org [place] Count 25,000-50,000 MIXC Mixed contaminants. Submit a new specimen if indicated. Normal [facility] Comment on above: Performed By: #### M 100.2200 #### [facility] [address] [place], [address] [employer] Visit Reporton 09-27-2024 Aerospace Engineer Officer Armament Office Visit Report [facility] [address], [address] [place] [address] OFFICE VISIT Date of Service: 09/27/24 MR#: [id number] Acct: [id number] Name: BRITTANY ROCA Rep #: [id number] : 1985 Provider: RALPH Meier ams Age/Sex: 39/F Location: [facility] [place] Status: Signed Intake Vital Signs 07/28/24 09:50 08/30/24 10:16 09/27/24 10:22 Height 5 ft 10 in 5 ft 10 in 5 ft 10 in Weight: 236 lb 6 oz BMI 33.9 BP 116/75 Intake Visit Reasons: 18wk ob Chief Complaint: 18wk ob Filling Machine Operator Required: No Is patient in pain?: No [...] #1 ea 08/31/24 Rx (FreeStyle [place] 2 [place]) flash glucose sensor (FreeStyle #1 ea 08/31/24 [...] 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 Date Name GA/Weeks Outcome Route Bth Weight Infant Gen Labor Lgth Anesthesia Del Locatn Provider FOB 08/26/18 [place] 40 live - full term 9lbs Female 16 hours none [facility] E Nieves Panda 10/24/20 [place] 39 live - full term 8#10oz Male epidural [facility] Dr Aroldo Panda Delivery Date: 08/26/18 Last [...] -???-???-???-???-?? ?-?? (more content not included)... Normal [facility] Urine cultureOrdered By: Srini Torres on 09-27-2024 Bacteria identified Cx Nom (U) Mixed Gram Pos & Gram Neg Org Abnormal [facility] Gestational GTT 3HR 100gon 0 09-08-2024 GEST GTT 100gm Normal [facility] Comment on above: Order Comment: Y [...] 09/08/24 1407 Performed By: #### L 500.4710 ####[facility] [address] [place], [place], [id number] Quantitative serum or plasma 3 hour gestational glucose tolerance panelOrdered By: Holly Spear on 09-08-2024 Glucose tolerance 3 hours gestational panel See comment [facility] Comment on above: FASTING 89 Col: [...] Below infection level. Mixed Gram Positive Organisms [place] Count 1000-10,000 MIXC Mixed contaminants. Submit a new specimen if indicated. Normal [facility] Comment on above: Performed By: #### M 100.2205 #### [facility] [address] [place], [place], [address] Absolute lymphocyte countOrd ered By: Holly Spear on 08-30-2024 Lymphocytes Auto (Unsp spec) [#/Vol] 1.82 10*3/uL 0.83-4.51 [facility] Absolute neutrophil countOrd ered By: Holyl Spear on 08-30-2024 Neutrophils (Bld) [#/Vol] 5.4 10*3/uL 2.0-7.7 [facility] Automated lymphocyte count a s percentage of total leukocytesOrdered By: Holly Spear on 08-30-2024 Lymphocytes/100 WBC Auto (Unsp spec) 23.8 % 19-41 [facility] Basophil percentageOrdered B y: Holly Spear on 08-30-2024 Basophils/100 WBC (Bld) 0.5 % 0-1 [facility] CBC W/Diff, Automatedon 08-12 Absolute Lymph 1.82 X10 3/uL Normal 0.83-4.51 [facility] Comment on above: Performed By: #### L 501.9985, L3890.6102, L3890.6006, L509.8002, BTS, L509.4006, L100.0100, L3890.6301 #### [facility] [address] [place], [address] Absolute Neut 5.4 X10 3/uL Normal 2.0-7.7 [facility] Comment on above: Performed By: #### L 501.9985, L3890.6102, L3890.6006, L509.8002, BTS, L509.4006, L100.0100, L3890.6301 #### [facility] [address] [place], [address] Basophils/100 WBC (Bld) 0.5 % Normal 0-1 [facility] Comment on above: Performed By: #### L 501.9985, L3890.6102, L3890.6006, L509.8002, BTS, L509.4006, L100.0100, L3890.6301 #### [facility] [address] [place], [address] Eosinophils/100 WBC (Bld) 0.4 % Normal 0-5 [facility] Comment on above: Performed By: #### L 501.9985, L3890.6102, L3890.6006, L509.8002, BTS, L509.4006, L100.0100, L3890.6301 #### [facility] [address] [place], [address] Erythrocyte distribution width (RBC) [Ratio] 13.2 % Normal 11.6-14.6 [facility] Comment on above: Performed By: #### L 501.9985, L3890.6102, L3890.6006, L509.8002, BTS, L509.4006, L100.0100, L3890.6301 #### [facility] [address] [place], [address] Hematocrit (Bld) [Volume fraction] 35.8 % Low 37-47 [facility] Comment on above: Performed By: #### L 501.9985, L3890.6102, L3890.6006, L509.8002, BTS, L509.4006, L100.0100, L3890.6301 #### [facility] [address] [place], [address] Hemoglobin (Bld) [Mass/Vol] 12.2 g/dL Normal 12.0-15.0 [facility] Comment on above: Performed By: #### L 501.9985, L3890.6102, L3890.6006, L509.8002, BTS, L509.4006, L100.0100, L3890.6301 #### [facility] [address] [place], [address] IG% 0.300 Normal 0.0-0.9 [facility] Comment on above: Result Comment: IG% - Immature Granulocytes (promyelocytes, myelocytes and metamyelocytes) > 1% indicates that a LEFT SHIFT is Present. Performed By: #### L 501.9985, L3890.6102, L3890.6006, L509.8002, BTS, L509.4006, L100.0100, L3890.6301 #### [facility] [address] [place], [address] Lymphocytes/100 WBC (Bld) 23.8 % Normal 19-41 [facility] Comment on above: Performed By: #### L 501.9985, L3890.6102, L3890.6006, L509.8002, BTS, L509.4006, L100.0100, L3890.6301 #### [facility] [address] [place], [address] MCH (RBC) [Entitic mass] 31.6 pg Normal 27.0-32.0 [facility] Comment on above: Performed By: #### L 501.9985, L3890.6102, L3890.6006, L509.8002, BTS, L509.4006, L100.0100, L3890.6301 #### [facility] [address] [place], [address] MCHC (RBC) [Mass/Vol] 34.1 g/dL Normal 32-[address] [facility] Comment on above: Performed By: #### L 501.9985, L3890.6102, L3890.6006, L509.8002, BTS, L509.4006, L100.0100, L3890.6301 #### [facility] [address] [facility] [place], [address] MCV (RBC) [Entitic vol] 92.7 fL Normal 81-99 [facility] Comment on above: Performed By: #### L 501.9985, L3890.6102, L3890.6006, L509.8002, BTS, L509.4006, L100.0100, L3890.6301 #### [facility] [address] [facility] [place], [address] Monocytes/100 WBC (Bld) 5.0 % Normal 0-10 [facility] Comment on above: Performed By: #### L 501.9985, L3890.6102, L3890.6006, L509.8002, BTS, L509.4006, L100.0100, L3890.6301 #### [facility] [address] [place], [address] Neutrophils/100 WBC (Bld) 70.0 % Normal 47-70 [facility] Comment on above: Performed By: #### L 501.9985, L3890.6102, L3890.6006, L509.8002, BTS, L509.4006, L100.0100, L3890.6301 #### [facility] [address] [place], [address] Nucleated RBC (Bld) [#/Vol] 0 10*3/uL Normal 0-5 [facility] Comment on above: Performed By: #### L 501.9985, L3890.6102, L3890.6006, L509.8002, BTS, L509.4006, L100.0100, L3890.6301 #### [facility] [address] [place], [address] Platelet mean volume (Bld) [Entitic vol] 11.7 fL Normal 6.2-12.0 [facility] Comment on above: Performed By: #### L 501.9985, L3890.6102, L3890.6006, L509.8002, BTS, L509.4006, L100.0100, L3890.6301 #### [facility] [address] [place], [address] Platelets (Bld) [#/Vol] 258 10*3/uL Normal 150-450 [facility] Comment on above: Performed By: #### L 501.9985, L3890.6102, L3890.6006, L509.8002, BTS, L509.4006, L100.0100, L3890.6301 #### [facility] [address] [place], [address] RBC (Bld) [#/Vol] 3.86 10*6/uL Low 4.2-5.4 [facility] Comment on above: Performed By: #### L 501.9985, L3890.6102, L3890.6006, L509.8002, BTS, L509.4006, L100.0100, L3890.6301 #### [facility] [address] [place], [address] RDW SD 44.9 fl High 35.1-43.9 [facility] Comment on above: Performed By: #### L 501.9985, L3890.6102, L3890.6006, L509.8002, BTS, L509.4006, L100.0100, L3890.6301 #### [facility] [address] [place], [address] WBC (Bld) [#/Vol] 7.7 10*3/uL Normal 4.4-11.0 [facility] Comment on above: Performed By: #### L 501.9985, L3890.6102, L3890.6006, L509.8002, BTS, L509.4006, L100.0100, L3890.6301 #### [facility] [address] [facility] [place], [address] Eosinophil percentageOrdered By: Holly Spear on 08-30-2024 Eosinophils/100 WBC (Bld) 0.4 % 0-5 [facility] Erythrocyte distribution wid th ratioOrdered By: Holly Spear on 08-30-2024 Erythrocyte distribution width (RBC) [Ratio] 13.2 % 11.6-14.6 [facility] Erythrocyte distribution wid th standard deviationOrdered By: Holly Spear on 08-30-2024 Erythrocyte distribution width (RBC) [Ratio] 44.9 fl High 35.1-43.9 [facility] HIVon 08-30-2024 HIV Non-Reactive Normal Nonreactive [facility] Comment on above: Result Comment: Non- Reactive Reactive Repeatedly reactive samples must be confirmed according to CDC recommended confirmatory algorithms. The subresults for either HIVAG or AHIV can be used as an aid in the selection of the confirmation algorithm for reactive samples. Send out specimens with Reactive results to [facility] for confirmation. Order the HIV antibody detection and differentiation: lc#[id number] Performed By: #### L 501.9985, L3890.6102, L3890.6006, L509.8002, BTS, L509.4006, L100.0100, L3890.6301 ####[facility] [address] [place], [place], [address] Hematocrit Auto (Bld) [Volum e fraction]Ordered By: Holly Riversmeredith on 08-30-2024 Hematocrit (Bld) [Volume fraction] 35.8 % Low 37-47 [facility] Hemoglobin A1con 08-30-2024 HbA1c (Bld) [Mass fraction] 5.8 % High <=5.6 [facility] Comment on above: Result Comment: Norm al < 5.7 % Prediabetic 5.7 - 6.4 % Diabetic >or= 6.5 % Please note range changes. Performed By: #### L 501.9985, L3890.6102, L3890.6006, L509.8002, BTS, L509.4006, L100.0100, L3890.6301 ####[facility] [address] [place], [place], [address] Hemoglobin A1c percentageOrd ered By: Holly Brashermadelyn on 08-30-2024 HbA1c (Bld) [Mass fraction] 5.8 % High <5.7 [facility] Comment on above: Normal < 5.7 % Predi abetic 5.7 - 6.4 % Diabetic >or= 6.5 % Please note range changes. Hemoglobin measurementOrdere d By: Hollyneftali Brashermadelyn on 08-30-2024 Hemoglobin (Bld) [Mass/Vol] 12.2 g/dL 12.0-15.0 [facility] Hepatitis C Antibodyon 08-30 Hepatitis C Ab Non-Reactive Normal Nonreactive [facility] Comment on above: Result Comment: Reac tive: Presumptive evidence of antibodies to HCV. Follow CDC recommendations for supplemental testing. Non-Reactive: Antibodies to HCV were not detected; does not exclude the possibility of exposure to HCV Reactive Results are presumptive evidence of antibodies to HCV. Follow CDC recommendations for supplemental testing. Order confirmation testing: HCV Quant by PCR testing - HCVPCR #[id number] Non Reactive: < 0.8 Equivocal: >/= 0.8 to < 1.0 Reactive: >/= 1.0 The CDC requires that a reactive/equivocal HCV antibody result be sent out for confirmation. HCV Quant by PCR testing. Performed By: #### L 501.9985, L3890.6102, L3890.6006, L509.8002, BTS, L509.4006, L100.0100, L3890.6301 ####[facility] [address] [place], [place], [address] Immature granulocytes/100 WB C Auto (Bld)Ordered By: Holly Spear on 08-30-2024 Immature granulocytes/100 WBC (Bld) 0.300 % 0.0-0.9 [facility] Comment on above: IG% - Immature Granu locytes (promyelocytes, myelocytes and metamyelocytes) > 1% indicates that a LEFT SHIFT is Present. L3890.6102on 08-30-2024 HEP B Surf Ag Non-Reactive Normal Nonreactive [facility] Comment on above: Result Comment: Reac tive: Presumptive evidence of HBV. Repeatedly reactive samples must be confirmed using a neutralization test ([employer] HBsAg Confirmatory Test) Non-Reactive: HBsAg not detected; does not exclude the possibility of exposure to HBV Performed By: #### L 501.9985, L3890.6102, L3890.6006, L509.8002, BTS, L509.4006, L100.0100, L3890.6301 ####[facility] [address] [place], [place], [address] L509.4006on 08-30-2024 Rubella IgG REAC Normal Nonreactive [facility] Comment on above: Result Comment: Anti body Result: Interpretation Non-Reactive: Non-Immune Reactive: Immune The following results were obtained with the [employer] Rubella IgG assay. Results from assays of other manufacturers cannot be used interchangeably. Performed By: #### L 501.9985, L3890.6102, L3890.6006, L509.8002, BTS, L509.4006, L100.0100, L3890.6301 ####[facility] [address] [place], [address] Laboratory - Chemistry and C hemistry - challengeOrdered By: Sarah Sharma on 08-30-2024 Glucose Ql (U) Negative [facility] - Microbiology an d Antimicrobial susceptibilityOrdered By: Holly Spear on 08-30-2024 HBV surface Ag Ql (S) Non-Reactive Nonreactive [facility] Comment on above: Reactive: Presumptiv e evidence of HBV. Repeatedly reactive samples must be confirmed using a neutralization test ([employer] HBsAg Confirmatory Test)Non-Reactive: HBsAg not detected; does not exclude the possibility of exposure to HBV Laboratory - UrinalysisOrder ed By: Sarah Sharma on 08-30-2024 Protein Ql (U) Negative [facility] MCV (mean corpuscular volume ) determinationOrdered By: Holly Spear on 08-30-2024 MCV (RBC) [Entitic vol] 92.7 fL 81-99 [facility] Mean corpuscular hemoglobin (MCH) determinationOrdered By: Holly Spear on 08-30-2024 MCH (RBC) [Entitic mass] 31.6 pg 27.0-32.0 [facility] Mean corpuscular hemoglobin concentration (MCHC) determinationOrdered By: Holly Spear on 08-30-2024 MCHC (RBC) [Mass/Vol] 34.1 g/dL 32-[address] [facility] Mean platelet volume determi nationOrdered By: Holly Spear on 08-30-2024 Platelet mean volume (Bld) [Entitic vol] 11.7 fL 6.2-12.0 [facility] Monocyte percentageOrdered B y: Holly Spear on 08-30-2024 Monocytes/100 WBC (Bld) 5.0 % 0-10 [facility] Neutrophil percentageOrdered By: Holly Spear on 08-30-2024 Neutrophils/100 WBC (Bld) 70.0 % 47-70 [facility] No Panel InformationOrdered By: Holly Spear on 08-30-2024 HIV (1&2) Antibody Non-Reactive Nonreactive [facility] Comment on above: Non-ReactiveReactive Repeatedly reactive samples must be confirmed according to CDC recommended confirmatory algorithms. The subresults for either HIVAG or AHIV can be used as an aid in the selection of the confirmation algorithm for reactive samples.Send out specimens with Reactive results to [facility] for confirmation.Order the HIV antibody detection and differentiation: #[id number] Nucleated red blood cell per centageOrdered By: Holly Spear on 08-30-2024 Nucleated RBC/100 WBC (Bld) [Ratio] 0 % 0-5 [facility] [employer] Visit Reporton 08-30-2024 Aerospace Engineer Officer Armament Office Visit Report [facility] [address], [address] [place] [address] OFFICE VISIT Date of Service: 08/30/24 MR#: [id number] Acct: [id number] Name: BRITTANY ROCA Rep #: [id number] : 1985 Provider: Dr. 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 (more content not included)... Normal [facility] Platelet countOrdered By: Isaiah Spear on 08-30-2024 Platelets (Bld) [#/Vol] 258 10*3/uL 150-450 [facility] RBC Auto (Bld) [#/Vol]Ordere d By: Holly Spear on 08-30-2024 RBC (Bld) [#/Vol] 3.86 10*6/uL Low 4.2-5.4 [facility] Syphilis Antibodieson 2024 Syphilis Abs Non-Reactive Normal Nonreactive [facility] Comment on above: Performed By: #### L 501.9985, L3890.6102, L3890.6006, L509.8002, BTS, L509.4006, L100.0100, L3890.6301 ####[facility] [address] [place], [address] Type AND Screenon 08-30-2024 Ab SCREEN GEL Negative Normal [facility] Comment on above: Order Comment: PN Performed By: #### L 501.9985, L3890.6102, L3890.6006, L509.8002, BTS, L509.4006, L100.0100, L3890.6301 ####[facility] [address] [place], [address] Urine cultureOrdered By: Stephaine Sharma on 08-30-2024 Bacteria identified Cx Nom (U) Positive Abnormal [facility] White blood cell (WBC) count Ordered By: Holly Spear on 08-30-2024 WBC (Bld) [#/Vol] 7.7 10*3/uL 4.4-11.0 [facility] Urine Cultureon 08-15-2024 URC Below infection level. Mixed Gram Positive Organisms [place] Count 1000-10,000 [facility] Mixed contaminants. Submit a new specimen if indicated. Normal [facility] Comment on above: Performed By: #### M 100.2200 #### [facility] [address] [place], [place], [id number] Laboratory - Chemistry and C hemistry - challengeOrdered By: Alycia Torres on 08-13-2024 Bilirubin Ql (U) Negative [facility] Glucose Ql (U) Negative [facility] Ketones Ql (U) Negative [facility] pH (U) 7 [pH] [facility] Specific gravity (U) [Rel density] 1.015 [facility] Urobilinogen (U) [Mass/Vol] Negative [facility] - Hematology and Cell countsOrdered By: Alycia Torres on 08-13-2024 Hemoglobin Ql (U) Negative [facility] - Specimen inform ationOrdered By: Alycia Torres on 08-13-2024 Clarity (U) Clear [facility] Color (U) Yellow [facility] - UrinalysisOrder ed By: Alycia Torres on 08-13-2024 Nitrite Ql (U) Negative [facility] Protein Ql (U) Negative [facility] No Panel InformationOrdered By: Alycia Torres on 08-13-2024 Urine Leukocytes Negatve [facility] Urine Non-Hemolyzed Blood [facility] [employer] Office Visit Reporton 08-13-2024 Aerospace Engineer Officer Armament Office Visit Report [facility] [address], [address] [place] [address] OFFICE VISIT Date of Service: 08/13/24 MR#: [id number] Acct: [id number] Name: BRITTANY ROCA Rep #: [id number] : 1985 Provider: RALPH Meier ams Age/Sex: 39/F Location: [facility] [place] Status: Signed Intake Vital Signs 07/28/24 09:50 08/12/24 15:49 08/13/24 09:13 Height 5 ft 10 in 5 ft 10 in 5 ft 10 in Intake Visit Reasons: Urine sample *possible UTI Filling Machine Operator Required: No Is patient in pain?: No [...] current occupational status: employed 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 Normal [facility] Urine cultureOrdered By: Srini Torres on 08-13-2024 Bacteria identified Cx Nom (U) Positive Abnormal [facility] Urine Cultureon 07-31-2024 URC #2 Below infection level. Enterococcus faecalis [place] Count >100,000 GNR lactose order department supervisor GNR lactose order department supervisor Enterococcus faecalis: REACTION Ampicillin Islt [place] <=2 S Ciprofloxacin Islt [place] <=0.5 Gentamicin Synergy Susc Islt SYN-S S levoFLOXacin Islt [place] 0.5 S Linezolid Islt [place] 2 S Nitrofurantoin Islt [place] <=16 S Streptomycin High Pot Susc Islt SYN-S S Tetracycline Islt [place] >=16 R Vancomycin Islt [place] 1 S Normal [facility] Comment on above: Performed By: #### M 100.2200, L7000.1800 #### [facility] [address] [place], [address] Chlamydia/GC PAU aptimaon CHLAMY,NUC ACID Negative Normal Negative [facility] Comment on above: Performed By: #### M 100.2200, L7000.1800 #### [facility] [address] [place], [address] GC BY NUC ACID Negative Normal Negative [facility] Comment on above: Result Comment: Perf ormed at: =G - [facility] [id number] Director Marketing Analytics: Niecy Morrison MD, Phone: [phone] Performed By: #### M 100.2200, L7000.1800 #### [facility] [address] [place], [address] C. trachomatis rRNA PAU+prob e Ql (Unsp spec)Ordered By: Holly Spear on 07-28-2024 Chlamydia DNA (PAU) Negative Negative [facility] Chlamydia trachomatis rRNA d etection by probe and target amplification methodOrdered By: Holly Spear on 07-28-2024 C. trachomatis rRNA PAU+probe Ql (Unsp spec) Negative Negative [facility] Neisseria gonorrhoeae nuclei c acid detection by amplified probe techniqueOrdered By: Holly Spear on 07-28-2024 N. gonorrhoeae DNA PAU+probe Ql (Unsp spec) Negative Negative [facility] Comment on above: Performed at: =G - [facility] [address] [id number] Director: Niecy Morrison MD, Phone: [phone] Aerospace Engineer Officer [employer] Office Visit Reporton 07-28-2024 Aerospace Engineer Officer Armament Office Visit Report [facility] [address] [place] [address], [address] [place] [address] OFFICE VISIT Date of Service: 07/28/24 MR#: [id number] Acct: [id number] Name: BRITTANY ROCA Rep #: [id number] : 1985 Provider: Dr. 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 Normal [facility] Urine cultureOrdered By: Duke Spear on 07-28-2024 Bacteria identified Cx Nom (U) Enterococcus faecalis Abnormal [facility] Bacteria identified Cx Nom (U) GNR lactose order department supervisor Abnormal [facility] Vital Signs Date Time Vital Sign Value Performing Clinician Faci lity 02-17-2025 13:49-0500 Body height 175.[address] Karen Chacko MD Work Phone: [facility] 02-17-2025 13:49-0500 Body mass index (BMI) [Ratio] 37.4 kg/m2 Dr. Karen Chacko MD Work Phone: 0(416)721-497263 [place] [address] 02-17-2025 13:49-0500 Body weight 114.[address] Karen Chacko MD Work Phone: [facility] 02-17-2025 13:49-0500 Diastolic blood pressure 68 mm[Hg] Dr. Karen Chacko MD Work Phone: 2(905)928-113663 [place] [address] 02-17-2025 13:49-0500 Systolic blood pressure 113 mm[Hg] Dr. Karen Chacko MD Work Phone: 1(234)091-333039 [address] 02-14-2025 08:46-0500 Body mass index (BMI) [Ratio] 37 kg/m2 Dr. Karen Chacko MD Work Phone: 6(740)281-445363 [place] [address] 02-14-2025 08:46-0500 Body weight 113.[address] Karen Chacko MD Work Phone: [facility] 02-14-2025 08:46-0500 Diastolic blood pressure 76 mm[Hg] Dr. Karen Chacko MD Work Phone: [facility] 02-14-2025 08:46-0500 Systolic blood pressure 121 mm[Hg] Dr. Karen Chacko MD Work Phone: [facility] 02-10-2025 13:40-0400 Body mass index (BMI) [Ratio] 37.3 kg/m2 Dr. Karen Chacko MD Work Phone: [facility] 02-10-2025 13:40-0400 Body weight 114.[address] Karen Chacko MD Work Phone: [facility] 02-10-2025 13:40-0400 Diastolic blood pressure 84 mm[Hg] Dr. Karen Chacko MD Work Phone: 4(099)466-110363 [place] [address] 02-10-2025 13:40-0400 Systolic blood pressure 128 mm[Hg] Dr. Karen Chacko MD Work Phone: 2(128)195-807131 [place] [address] 02-07-2025 08:26-0400 Body height 175.[address] Karen Chacko MD Work Phone: 9(410)976-463531 [place] [address] 02-07-2025 08:26-0400 Body mass index (BMI) [Ratio] 37 kg/m2 Dr. Karen Chacko MD Work Phone: 3(555)046-707131 [place] [address] 02-07-2025 08:26-0400 Body weight 113.[address] Karen Chacko MD Work Phone: 8(043)087-544031 [place] [address] 02-07-2025 08:26-0400 Diastolic blood pressure 73 mm[Hg] Dr. Karen Chacko MD Work Phone: 8(328)915-348631 [place] [address] 02-07-2025 08:26-0400 Systolic blood pressure 122 mm[Hg] Dr. Karen Chacko MD Work Phone: 1(147)052-274931 [place] [address] 02-03-2025 13:38-0400 Body mass index (BMI) [Ratio] 36.8 kg/m2 Dr. Karen Chacko MD Work Phone: 4(237)872-812831 [place] [address] 02-03-2025 13:38-0400 Body weight 113.[address] Karen Chacko MD Work Phone: 9(591)334-521931 [place] [address] 02-03-2025 13:38-0400 Diastolic blood pressure 74 mm[Hg] Dr. Karen Chacko MD Work Phone: 9(398)118-885331 [place] [address] 02-03-2025 13:38-0400 Systolic blood pressure 114 mm[Hg] Dr. Karen Chacko MD Work Phone: 0(148)908-916331 [place] [address] 01-31-2025 08:41-0400 Body mass index (BMI) [Ratio] 37.2 kg/m2 Dr. Karen Chacko MD Work Phone: 6(253)879-781431 [place] [address] 01-31-2025 08:41-0400 Body weight 114.[address] Karen Chacko MD Work Phone: 2(577)514-002263 [place] [address] 01-31-2025 08:41-0400 Diastolic blood pressure 72 mm[Hg] Dr. Karen Chacko MD Work Phone: 3(700)954-201831 [place] [address] 01-31-2025 08:41-0400 Systolic blood pressure 103 mm[Hg] Dr. Karen Chacko MD Work Phone: 9(602)733-953031 [place] [address] 01-27-2025 15:11-0400 Body mass index (BMI) [Ratio] 36.7 kg/m2 Dr. Karen Chacko MD Work Phone: 7(560)009-629831 [place] [address] 01-27-2025 15:11-0400 Body weight 112.[address] Karen Chacko MD Work Phone: 7(638)908-576031 [place] [address] 01-27-2025 15:01-0400 Body temperature 97.5 [degF] Dr. Kraen Chacko MD Work Phone: 4(537)320-473531 [place] [address] 01-27-2025 15:01-0400 Respiratory rate 13 /min Dr. Karen Chacko MD Work Phone: 1(750)403-478131 [place] [address] 01-27-2025 15:01-0400 SaO2% (BldA) [Mass fraction] 100 % Dr. Karen Chacko MD Work Phone: 7(450)169-237631 [place] [address] 01-27-2025 15:00-0400 Diastolic blood pressure 71 mm[Hg] Dr. Karen Chacko MD Work Phone: 6(902)965-923831 [place] [address] 01-27-2025 15:00-0400 Heart rate 86 /min Dr. Karen Chacko MD Work Phone: 4(656)595-756931 [place] [address] 01-27-2025 15:00-0400 Systolic blood pressure 118 mm[Hg] Dr. Karen Chacko MD Work Phone: 0(084)973-427231 [place] [address] 01-27-2025 14:01-0400 Body mass index (BMI) [Ratio] 35.7 kg/m2 Dr. Karen Chacko MD Work Phone: 2(214)413-013231 [place] [address] 01-27-2025 14:01-0400 Body weight 112.[address] Karen Chacko MD Work Phone: 4(751)626-696663 [place] [address] 01-27-2025 14:01-0400 Diastolic blood pressure 74 mm[Hg] Dr. Karen Chacko MD Work Phone: 2(930)043-517131 [place] [address] 01-27-2025 14:01-0400 Systolic blood pressure 113 mm[Hg] Dr. Karen Chacko MD Work Phone: 9(772)780-976231 [place] [address] 01-24-2025 10:21-0400 Body mass index (BMI) [Ratio] 35.9 kg/m2 Dr. Karen Chacko MD Work Phone: 5(948)405-004031 [place] [address] 01-24-2025 10:21-0400 Body weight 113.[address] Karen Chacko MD Work Phone: 6(988)736-754831 [place] [address] 01-24-2025 10:21-0400 Diastolic blood pressure 69 mm[Hg] Dr. Karen Chacko MD Work Phone: 4(572)445-962831 [place] [address] 01-24-2025 10:21-0400 Systolic blood pressure 103 mm[Hg] Dr. Karen Chacko MD Work Phone: 6(200)299-816431 [place] [address] 01-20-2025 14:02-0400 Body mass index (BMI) [Ratio] 35.4 kg/m2 Dr. Karen Chacko MD Work Phone: 1(421)031-463531 [place] [address] 01-20-2025 14:02-0400 Body weight 112.[address] Karen Chacko MD Work Phone: 9(211)541-573031 [place] [address] 01-20-2025 14:02-0400 Diastolic blood pressure 70 mm[Hg] Dr. Karen Chacko MD Work Phone: 6(186)644-870031 [place] [address] 01-20-2025 14:02-0400 Systolic blood pressure 112 mm[Hg] Dr. Karen Chacko MD Work Phone: 0(575)125-035031 [place] [address] 01-17-2025 09:59-0400 Body height 177.[address] Karen Chacko MD Work Phone: 7(116)303-837531 [place] [address] 01-17-2025 09:59-0400 Body mass index (BMI) [Ratio] 35.1 kg/m2 Dr. Karen Chacko MD Work Phone: 1(049)534-630631 [place] [address] 01-17-2025 09:59-0400 Body weight 110.[address] Karen Chacko MD Work Phone: 0(778)738-538131 [place] [address] 01-17-2025 09:59-0400 Diastolic blood pressure 68 mm[Hg] Dr. Karen Chacko MD Work Phone: 4(983)172-471931 [place] [address] 01-17-2025 09:59-0400 Systolic blood pressure 106 mm[Hg] Dr. Karen Chacko MD Work Phone: 2(284)792-654431 [place] [address] 01-14-2025 08:08-0400 Body height 177.[address] Karen Chacko MD Work Phone: 7(756)906-070131 [place] [address] 01-14-2025 08:08-0400 Body mass index (BMI) [Ratio] 35.4 kg/m2 Dr. Karen Chacko MD Work Phone: 8(784)186-693331 [place] [address] 01-14-2025 08:08-0400 Body weight 112.[address] Karen Chacko MD Work Phone: 7(426)567-688131 [place] [address] 01-14-2025 08:08-0400 Diastolic blood pressure 71 mm[Hg] Dr. Karen Chacko MD Work Phone: 5(269)619-734731 [place] [address] 01-14-2025 08:08-0400 Systolic blood pressure 116 mm[Hg] Dr. Karen Chacko MD Work Phone: 3(206)447-242631 [place] [address] 01-11-2025 09:01-0400 Body height 177.[address] Karen Chacko MD Work Phone: 7(221)480-955731 [place] [address] 01-11-2025 09:01-0400 Body mass index (BMI) [Ratio] 35.4 kg/m2 Dr. Karen Chacko MD Work Phone: 5(276)408-606531 [place] [address] 01-11-2025 09:01-0400 Body weight 112.[address] Karen Chacko MD Work Phone: 6(816)120-871531 [place] [address] 01-11-2025 09:01-0400 Diastolic blood pressure 67 mm[Hg] Dr. Karen Chacko MD Work Phone: 8(710)642-959263 [place] [address] 01-11-2025 09:01-0400 Systolic blood pressure 108 mm[Hg] Dr. Karen Chacko MD Work Phone: 6(115)532-991431 [place] [address] 01-06-2025 08:44-0400 Body mass index (BMI) [Ratio] 34.9 kg/m2 Dr. Karen Chacko MD Work Phone: 2(511)350-460531 [place] [address] 01-06-2025 08:44-0400 Body weight 110.[address] Karen Chacko MD Work Phone: 0(264)059-804231 [place] [address] 01-06-2025 08:44-0400 Diastolic blood pressure 65 mm[Hg] Dr. Karen Chacko MD Work Phone: 8(320)075-974831 [place] [address] 01-06-2025 08:44-0400 Systolic blood pressure 105 mm[Hg] Dr. Karen Chacko MD Work Phone: 7(556)457-077931 [place] [address] 12-28-2024 15:10-0400 Body height 177.[address] Karen Chacko MD Work Phone: 5(890)887-410231 [place] [address] 12-28-2024 15:10-0400 Body mass index (BMI) [Ratio] 34.6 kg/m2 Dr. Karen Chacko MD Work Phone: 5(638)403-653331 [place] [address] 12-28-2024 15:10-0400 Body weight 109.[address] Karen Chacko MD Work Phone: 9(404)778-330531 [place] [address] 12-28-2024 15:10-0400 Diastolic blood pressure 66 mm[Hg] Dr. Karen Chacko MD Work Phone: 7(915)589-076931 [place] [address] 12-28-2024 15:10-0400 Systolic blood pressure 102 mm[Hg] Dr. Karen Chacko MD Work Phone: 3(432)350-923731 [place] [address] 12-22-2024 14:07-0400 Body height 177.[address] Karen Chacko MD Work Phone: 1(171)696-901031 [place] [address] 12-22-2024 14:07-0400 Body mass index (BMI) [Ratio] 34.6 kg/m2 Dr. Karen Chacko MD Work Phone: 7(935)596-991031 [place] [address] 12-22-2024 14:07-0400 Body weight 109.[address] Karen Chacko MD Work Phone: 0(964)952-555231 [place] [address] 12-22-2024 14:07-0400 Diastolic blood pressure 79 mm[Hg] Dr. Karen Chacko MD Work Phone: 5(420)119-503831 [place] [address] 12-22-2024 14:07-0400 Systolic blood pressure 113 mm[Hg] Dr. Karen Chacko MD Work Phone: 2(864)379-770531 [place] [address] 11-25-2024 09:54-0400 Body height 177.[address] Karen Chacko MD Work Phone: 2(585)259-594931 [place] [address] 11-25-2024 09:54-0400 Body mass index (BMI) [Ratio] 33.9 kg/m2 Dr. Karen Chacko MD Work Phone: 2(443)694-657431 [place] [address] 11-25-2024 09:54-0400 Body weight 107.[address] Karen Chacko MD Work Phone: 8(724)536-571931 [place] [address] 11-25-2024 09:54-0400 Diastolic blood pressure 64 mm[Hg] Dr. Karen Chacko MD Work Phone: 0(229)439-770031 [place] [address] 11-25-2024 09:54-0400 Systolic blood pressure 97 mm[Hg] Dr. Karen Chacko MD Work Phone: 2(819)584-544431 [place] [address] 10-28-2024 13:39-0400 Body height 177.[address] Karen Chacko MD Work Phone: 3(303)744-238531 [place] [address] 10-28-2024 13:39-0400 Body mass index (BMI) [Ratio] 34.1 kg/m2 Dr. Karen Chacko MD Work Phone: 1(769)113-653031 [place] [address] 10-28-2024 13:39-0400 Body weight 107.[address] Karen Chacko MD Work Phone: 0(565)615-058331 [place] [address] 10-28-2024 13:39-0400 Diastolic blood pressure 73 mm[Hg] Dr. Karen Chacko MD Work Phone: 4(409)664-406331 [place] [address] 10-28-2024 13:39-0400 Heart rate 81 /min Dr. Karen Chacko MD Work Phone: 8(453)269-864631 [place] [address] 10-28-2024 13:39-0400 SaO2% (BldA) [Mass fraction] 97 % Dr. Karen Chacko MD Work Phone: 6(837)813-481131 [place] [address] 10-28-2024 13:39-0400 Systolic blood pressure 112 mm[Hg] Dr. Karen Chacko MD Work Phone: 2(884)649-205731 [place] [address] 10-25-2024 10:15-0400 Body height 177.[address] Karen Chacko MD Work Phone: 4(058)955-124531 [place] [address] 10-25-2024 10:15-0400 Body mass index (BMI) [Ratio] 33.8 kg/m2 Dr. Karen Chacko MD Work Phone: 4(176)751-669331 [place] [address] 10-25-2024 10:15-0400 Body weight 107.[address] Karen Chacko MD Work Phone: 5(449)897-266331 [place] [address] 10-25-2024 10:15-0400 Diastolic blood pressure 70 mm[Hg] Dr. Karen Chacko MD Work Phone: 9(090)790-670331 [place] [address] 10-25-2024 10:15-0400 Systolic blood pressure 122 mm[Hg] Dr. Karen Chacko MD Work Phone: 9(005)861-208131 [place] [address] 09-27-2024 10:22-0400 Body height 177.[address] Karen Chacko MD Work Phone: 2(867)385-005731 [place] [address] 09-27-2024 10:22-0400 Body mass index (BMI) [Ratio] 33.9 kg/m2 Dr. Karen Chacko MD Work Phone: 6(159)085-935831 [place] [address] 09-27-2024 10:22-0400 Body weight 107.[address] Karen Chacko MD Work Phone: 9(624)349-140031 [place] [address] 09-27-2024 10:22-0400 Diastolic blood pressure 75 mm[Hg] Dr. Karen Chacko MD Work Phone: 1(018)175-089863 [place] [address] 09-27-2024 10:22-0400 Systolic blood pressure 116 mm[Hg] Dr. Karen Chacko MD Work Phone: 3(351)638-309231 [place] [address] 08-30-2024 10:16-0400 Body height 177.[address] Karen Chacko MD Work Phone: 3(091)109-581731 [place] [address] 08-30-2024 10:15-0400 Body mass index (BMI) [Ratio] 33.6 kg/m2 Dr. Karen Chacko MD Work Phone: 8(833)842-583631 [place] [address] 08-30-2024 10:15-0400 Body weight 106.[address] Karen Chacko MD Work Phone: 2(194)573-595131 [place] [address] 08-30-2024 10:15-0400 Diastolic blood pressure 73 mm[Hg] Dr. Karen Chacko MD Work Phone: 0(811)416-827331 [place] [address] 08-30-2024 10:15-0400 Systolic blood pressure 115 mm[Hg] Dr. Karen Chacko MD Work Phone: 8(403)412-685331 [place] [address] 08-13-2024 09:13-0400 Body height 177.[address] Karen Chacko MD Work Phone: 9(313)769-451631 [place] [address] 07-28-2024 09:50-0400 Body height 177.[address] Karen Chacko MD Work Phone: 5(462)904-344931 [place] [address] 07-28-2024 09:50-0400 Body mass index (BMI) [Ratio] 33.4 kg/m2 Dr. Karen Chacko MD Work Phone: 3(146)283-598531 [place] [address] 07-28-2024 09:50-0400 Body weight 105.[address] Karen Chacko MD Work Phone: 5(623)353-936031 [place] [address] 07-28-2024 09:50-0400 Diastolic blood pressure 79 mm[Hg] Dr. Karen Chacko MD Work Phone: 2(782)335-630831 [place] [address] 07-28-2024 09:50-0400 Systolic blood pressure 129 mm[Hg] Dr. Karen Chacko MD Work Phone: [facility] Encounters Encounter Date Encounter Type Care Provider Facility Start: 03-03-2025 ambulatory Holly Euceda luthery:[facility] Start: 02-24-2025 ambulatory Karen Chacko Facility:[facility] Start: 02-21-2025 End: 02-21-2025 ambulatory Karen Chacko Facility:[facility] Start: 02-17-2025 End: 02-17-2025 ambulatory Karen Chacko Facility:[facility] Start: 02-14-2025 End: 02-14-2025 ambulatory Sarah Harris Facility:[facility] Start: 02-10-2025 End: 02-10-2025 ambulatory Karen Chacko Facility:[facility] Start: 02-07-2025 End: 02-07-2025 ambulatory [facility] Start: 02-07-2025 End: 02-07-2025 ambulatory Karen Chacko Facility:[facility] Start: 02-07-2025 End: 02-07-2025 ambulatory Karen Chacko Facility:[facility] Start: 02-03-2025 End: 02-03-2025 ambulatory Karen Chacko Facility:[facility] Start: 01-31-2025 End: 01-31-2025 Patient encounter procedure Alycia Torres CNM -[facility] Work Phone: Start: 01-31-2025 End: 01-31-[address] Karen Chacko MD Work Phone: [facility] Start: 01-27-2025 ambulatory Sarah Mayty:[facility] Start: 01-27-2025 Non-patient / Non-visit Dr. Sarah Harris DO -[facility] Start: 01-27-2025 End: 01-27-[address] Sarah Harrsi DO -[facility] Work Phone: Start: 01-27-2025 End: 01-27-[address] Karen Chacko MD Work Phone: [facility] Start: 01-24-2025 End: 01-24-2025 Patient encounter procedure Alycia Torres CNM -[facility] Work Phone: Start: 01-24-2025 End: 01-24-[address] Karen Chacko MD Work Phone: [facility] Start: 01-20-2025 End: 01-20-2025 Patient encounter procedure Alycia Torres [facility] -[facility] Work Phone: Start: 01-20-2025 End: 01-20-[address] Karen Chacko MD Work Phone: [facility] Start: 01-17-2025 End: 01-17-2025 Patient encounter procedure Shannon HODGES -[facility] Work Phone: Start: 01-17-2025 End: 01-17-[address] Karen Chacko MD Work Phone: [facility] Start: 01-14-2025 End: 01-14-2025 [facility] Start: 01-14-2025 End: 01-14-[address] Karen Chacko MD Work Phone: [facility] Start: 01-11-2025 End: 01-11-[address] Sarah Harris DO -[facility] Work Phone: Start: 01-11-2025 End: 01-11-[address] Karen Chacko MD Work Phone: [facility] Start: 01-06-2025 End: 01-06-2025 Patient encounter procedure Shannon HODGES -[facility] Work Phone: Start: 01-06-2025 End: 01-06-[address] Karen Chacko MD Work Phone: [facility] Start: 12-28-2024 End: 12-28-2024 Patient encounter procedure Shannon Osuna NP-C -[facility] Work Phone: Start: 12-28-2024 End: 12-28-[address] Karen Chacko MD Work Phone: [facility] Start: 12-22-2024 End: 12-22-2024 Patient encounter procedure Alycia Torres CNM -[facility] Work Phone: Start: 12-22-2024 End: 12-22-[address] Karen Chacko MD Work Phone: [facility] Start: 11-25-2024 End: 11-25-[address] Holly Spear MD -[facility] Work Phone: Start: 11-25-2024 End: 11-25-[address] Karen Chacko MD Work Phone: [facility] Start: 11-25-2024 End: 11-25-2024 ambulatory Holly Spear Facility:[facility] Start: 10-28-2024 End: 10-28-[address] Jeovanny Hall MD -[facility] Work Phone: Start: 10-28-2024 End: 10-28-[address] Karen Chacko MD Work Phone: [facility] Start: 10-25-2024 End: 10-25-2024 Patient encounter procedure Shannon Osuna NP-C -[facility] Work Phone: Start: 10-25-2024 End: 10-25-[address] Karen Chacko MD Work Phone: [facility] Start: 10-22-2024 End: 10-22-2024 ambulatory KAREN CHACKO [facility] Start: 09-27-2024 End: 09-27-[address] Karen Chacko MD Work Phone: [facility] Work Phone: Start: 09-27-2024 End: 09-27-2024 Patient encounter procedure Alycia Torres CNM -Laboratory Specimen Work Phone: Start: 09-27-2024 End: 09-27-2024 Patient encounter procedure Alycia Torres CNM -[facility] Work Phone: Start: 09-27-2024 End: 09-27-[address] Karen Chacko MD Work Phone: [facility] Work Phone: Start: 09-27-2024 End: 09-27-2024 ambulatory Karen Chacko Facility:[facility] Start: 09-08-2024 End: 09-08-[address] Karen Chacko MD Work Phone: [facility] Work Phone: Start: 09-08-2024 End: 09-08-[address] Holly Spear MD -Laboratory Work Phone: Start: 09-08-2024 End: 09-08-2024 ambulatory Holly Spear Facility:[facility] Start: 08-30-2024 End: 08-30-[address] Sarah Harris DO -[facility] Work Phone: Start: 08-30-2024 End: 08-30-[address] Karen Chacko MD Work Phone: [facility] Work Phone: Start: 08-30-2024 End: 08-30-2024 ambulatory Sarah Harris Facility:[facility] Start: 08-13-2024 End: 08-13-[address] Karen Chacko MD Work Phone: [facility] Work Phone: Start: 08-13-2024 End: 08-13-2024 Patient encounter procedure Alycia Torres CNM -Laboratory, Specimen Work Phone: Start: 08-13-2024 End: 08-13-2024 Patient encounter procedure Alycia Brian ROSAS -[facility] Work Phone: Start: 08-13-2024 End: 08-13-2024 ambulatory Karen [facility] Facility:[facility] Start: 08-13-2024 End: 08-13-2024 ambulatory Karen [facility] Facility:[facility] Start: 07-28-2024 End: 07-28-[address] Karen Chacko MD Work Phone: [facility] Work Phone: Start: 07-28-2024 End: 07-28-[address] Holly Spear MD -Laboratory, Specimen Work Phone: Start: 07-28-2024 End: 07-28-[address] Holly Spear MD -[facility] Work Phone: Start: 07-28-2024 End: 07-28-2024 ambulatory Karen Chacko Facility:[facility] Start: 07-28-2024 End: 07-28-2024 ambulatory Holly Spear Facility:[facility] Procedures Date Procedure Procedure Detail Performing [...] HCV Quant by PCR testing - HCVPCR #[id number] Non Reactive: < 0.8 Equivocal: >/= 0.8 [...] procedure AMA (advanced maternal age) multigravida 35+ -[facility] Work Phone: Start: 02-14-2025 End: 02-14-2025 Patient encounter procedure AMA (advanced maternal age) multigravida 35+ -[facility] Work Phone: Start: 02-10-2025 End: 02-10-2025 Patient encounter procedure AMA (advanced maternal age) multigravida 35+ -[facility] Work Phone: Start: 02-07-2025 Beta-hemolytic Streptococcus culture Group B Streptococcus Culture [facility] Start: 02-07-2025 Group B Streptococcus Culture Group B Streptococcus Culture [facility] Start: 02-07-2025 End: 02-07-2025 Patient encounter procedure -Laboratory Specimen Work Phone: Start: 02-07-2025 End: 02-07-2025 Patient encounter procedure AMA (advanced maternal age) multigravida 35+ -[facility] Work Phone: Start: 02-07-2025 Streptococcus agalactiae [Presence] in Unspecified specimen by Organism specific culture [facility] Start: 02-03-2025 [facility] Start: 02-03-2025 End: 02-03-2025 Patient encounter procedure AMA (advanced maternal age) multigravida 35+ -[facility] Work Phone: Start: 01-31-2025 End: 01-31-2025 Patient encounter procedure AMA (advanced maternal age) multigravida 35+ -[facility] Work Phone: Start: 01-27-2025 Non-patient / Non-visit Non-patient / Non-visit -[facility] Start: 01-27-2025 Nonstress test [facility] Start: 01-27-2025 Obstetric monitoring [facility] Start: 01-27-2025 Vital signs measurements [facility] Start: 01-27-2025 [facility] Start: 01-27-2025 Ultrasonography for biophysical profile without non-stress testing OB Biophysical Prof W/O NST [facility] Start: 01-27-2025 End: 01-27-2025 Patient encounter procedure AMA (advanced maternal age) multigravida 35+ -[facility] Work Phone: Start: 01-24-2025 End: 01-24-2025 Patient encounter procedure AMA (advanced maternal age) multigravida 35+ -[facility] Work Phone: Start: 01-11-2025 End: 01-11-2025 Patient encounter procedure AMA (advanced maternal age) multigravida 35+ -[facility] Work Phone: Start: 08-30-2024 CBC W Auto Differential panel - Blood [facility] Start: 08-30-2024 Hemoglobin A1c/Hemoglobin.total in Blood [facility] Start: 08-30-2024 Hepatitis C antibody measurement [facility] Start: 08-30-2024 Rubella IgG measurement [facility] Start: 08-30-2024 Serologic test for syphilis [facility] Start: 08-30-2024 [facility] Beta-hemolytic Streptococcus culture [facility] CBC W Auto Different ial panel - Blood [facility] CBC W Auto Different ial panel - Blood [facility] Erythrocyte mean corpuscular volume determination [facility] Biophysical pr ofile panel US [facility] Hematocrit [Volume Fraction] of Blood [facility] Hemoglobin [Mass/vol ume] in Blood [facility] Hemoglobin A1c/Hemoglobin.total in Blood [facility] Hepatitis B virus edward rface Ag [Presence] in Serum [facility] Hepatitis C antibody measurement [facility] Leukocytes [#/volume ] in Blood [facility] Mean corpuscular hemoglobin concentration determination [facility] Mean corpuscular hemoglobin determination [facility] Neutrophil count [facility] Neutrophil percent differential count [facility] Platelets [#/volume] in Blood [facility] Red blood cell count [facility] Red cell distributio n width determination [facility] Rubella IgG measurement [facility] Serologic test for syphilis [facility] Serologic test for syphilis [facility] Ultrasound scan for growth [facility] Ultrasound scan for growth [facility] Immunizations Immunization Date Immunization Notes Care Provider Fa [facility] 01-17-2025 influenza, injectabl e, madin shukri canine kidney, preservative free Dr. Karen Chacko MD Work Phone: [facility] 01-06-2025 tetanus toxoid, redu earl diphtheria toxoid, and acellular pertussis vaccine, adsorbed Dr. Karen Chacko MD Work Phone: [facility] Payers Date Payer Category Payer Self-pay 2024 Medicaid [id number] 2024 Unknown [id number] 1985 Unknown [id number] 2.16. 840.1.072994.3.579.2.479 1985 Unknown [id number] 840.1.877737.3.579.2.479 1985 Unknown [id number] 840.1.395162.3.579.2.479 Unknown [id number] Unknown [facility] [id number] Unknown [facility] [id number] Unknown [id number] 2.16.8 40.1.858636.3.579.2.462 Unknown [id number] 2.16.8 40.1.507588.3.579.2.462 Unknown [id number] 2.16.8 40.1.444859.3.579.2.462 Unknown [id number] 2.16.8 40.1.470420.3.579.2.462 Unknown [id number] 2.16.8 40.1.838651.3.579.2.462 Unknown [id number] 2.16.8 40.1.038313.3.579.2.462 Unknown [id number] 2.16.8 40.1.352474.3.579.2.462 Unknown [id number] 2.16.8 40.1.918363.3.579.2.462 Unknown [id number] 2.16.8 40.1.834181.3.579.2.462 Unknown [id number] 2.16.8 40.1.771858.3.579.2.462 Unknown [id number] 2.16.8 40.1.642573.3.579.2.462 Unknown [id number] 2.16.8 40.1.430928.3.579.2.462 Unknown [id number] 2.16.8 40.1.283234.3.579.2.462 Unknown [id number] 2.16.8 40.1.742054.3.579.2.462 Unknown [id number] 2.16.8 40.1.482730.3.579.2.462 Unknown [id number] 2.16.8 40.1.495170.3.579.2.462 Unknown [id number] 2.16.8 40.1.577088.3.579.2.462 Unknown [id number] 2.16.8 40.1.198168.3.579.2.462 Unknown [id number] 2.16.8 40.1.140215.3.579.2.462 Unknown [id number] 2.16.8 40.1.808594.3.579.2.462 Unknown [id number] 2.16.8 40.1.638562.3.579.2.462 Unknown [id number] 2.16.8 40.1.883399.3.579.2.462 Unknown [id number] 2.16.8 40.1.290923.3.579.2.462 Unknown [id number] 2.16.8 40.1.962582.3.579.2.462 Unknown [id number] 2.16.8 40.1.872671.3.579.2.462 Unknown [id number] 2.16.8 40.1.026611.3.579.2.462 Unknown [id number] 2.16.8 40.1.785349.3.579.2.462 Unknown [id number] 2.16.8 40.1.999619.3.579.2.462 Unknown [id number] 2.16.8 40.1.588304.3.579.2.462 Unknown [id number] 2.16.8 40.1.844039.3.579.2.462 Unknown [id number] 2.16.8 40.1.093479.3.579.2.462 Unknown [id number] 2.16.8 40.1.731217.3.579.2.462 Unknown [id number] 2.16.8 40.1.708797.3.579.2.462 Unknown [id number] 2.16.8 40.1.378621.3.579.2.462 Social History Date Type Detail Facility Start: 07-23-2024 End: 08-12-2024 Tobacco smoking status NHIS Never smoked tobacco (finding) [facility] Start: 08-02-2024 Sex Female (finding) [facility] Start: 1985 Sex Assigned At Female [facility] Sex Female [facility] Clinical Notes 07-28-2024 to 01-31-2025 Note Date & Type Note Facility 01-31-2025 Progress note [facility] 01-27-2025 History and physical note Note Date/Time January 27, 2025 5:47pm [facility] Medical Records Department [address] [place] [address] OB Triage Physician Note 01/27/25 [id number] MR#: [id number] Acct: [id number] Name: BRITTANY ROCA Rep #:[id number] : 1985 39 From: Sarah Harris DO PCP: Dr. 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 Rainer Panda Delivery Date: 08/26/18 Last [...] -?-?-?-?-?-?-?-?-?-?-?-?- 155 -?-?-?-?-?-?-?-?-?-?-?-?- KW- US scheduled with [facility]. no vb/cramping. +flutters. On metformin 500mg for Blood sugars. Reports fasting BS under 95. Encouraged to continue checking BS and follow up with DR Kim. doing well on ZOloft. KW- US scheduled with [facility]. n o vb/cramping. +flutters. On metformin 500mg [...] x good fm. reactive NST. MIL in chcf-noticing some spikes in blood sugars with stress. [...] Multi Select Codes Visit Charges Office Visit/Consults: 69851 OV L3 Est 20min Urinary/Genital Urinary/Genital CPT Codes: 80958-67 non-stress test Interp 01/27/25 2767 <Electronically signed by Sarah Vieira DO> Date _ Sarah Billign Signature (if applicable): Date CC: Dr. Karen Chacko MD; Dr. Sarah Harris DO ~ Signed [facility] Work Phone: 1(904) 116-196310-16-2025 History and physical note [facility] Medical Records Department [address] [place] [address] OB Triage Physician Note 01/27/25 2365 MR#: [id number] Acct: [id number] Name: BRITTANY ROCA Rep #:[id number] : 1985 39 From: Sarah Harris DO PCP: Dr. 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 Rainer Panda Delivery Date: 08/26/18 Last [...] -?-?-?-?-?-?-?-?-?-?-?-?- 155 -?-?-?-?-?-?-?-?-?-?-?-?- KW- US scheduled with [facility]. no vb/cramping. +flutters. On metformin 500mg for Blood sugars. Reports fasting BS under 95. Encouraged to continue checking BS and follow up with Renny. doing well on ZOloft. KW- US scheduled with [facility]. n o vb/cramping. +flutters. On metformin 500mg [...] x good fm. reactive NST. MIL in chcf-noticing some spikes in blood sugars with stress. [...] Multi Select Codes Visit Charges Office Visit/Consults: 88559 OV L3 Est 20min Urinary/Genital Urinary/Genital CPT Codes: 65590-72 non-stress test Interp 01/27/25 1747 e Edith DO> Date _ Sarah Hraris DO Cosigner Signature (if applicable): Date CC: Dr. Karen Chacko MD; Dr. Sarah Harris, ~ Signed [facility]10-16-2025 Radiology Diagnostic study note [facility] Imaging Services [address] [place], [place] [address] OB Biophysical Prof W/O NST MR#: [id number] Acct: [id number] Name: BRITTANY ROCA Rep #: [id number] : 1985 F 39 From: Bienvenido Ruvalcaba MD PCP: Dr. Karen Chacko MD Status: REG CLI Study:OB Biophysical Prof W/O NST Date of Exa m: 01/27/25 Exam# [id number] Ordering Dr: Alycia Torres CNM PROCEDURE: OB [...] 34 weeks and6 days gestation. Reading Location: [address] CC: RALPH Torres; Dr. 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: Signed [facility]10-16-2025 [facility] [address], [address] [place] [address] OFFICE VISIT Date of Service: 01/27/25 MR#: [id number] Acct: [id number] Name: BRITTANY ROCA Rep #: [id number] : 1985 Provider: RALPH Torres Age/Sex: 39/F Location: [facility] Status: Signed Intake Vital Signs 01/06/25 08:44 01/24/25 10:21 01/27/25 14:01 Height 5 ft 10 in 5 ft 10 in 5 ft 10 in Weight: 250 lb 7 oz 249 lb 1 oz BMI 35.9 35.7 BP 103/69 113/74 Intake Visit Reasons: 35wk NST ONLY Filling Machine Operator Required: No Is patient in pain?: No Allergies avocado (avacado) Allergy (Intermediate, Verified 01/27/25 14:03) Swelling of tongue Medications ?Medication ?Instructions ?Recorded ?Confirmed ?Type mv-mn 110-FA 180 mcg-om3 35 mg-dha tab PO DAILY 04/11/ 25 10/16/25 History 25 mg-epa 5 mg-fish oil chew tablet flash glucose scanning reader #1 ea 08/31/24 01/27/25 Rx (FreeStyle Todd 2 [place]) flash glucose sensor (FreeStyle #1 ea 08/31/24 [...] current occupational status: employed 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 Rainer Panda Delivery Date: 08/26/18 Last [...] -?-?-?-?-?-?-?-?-?-?-?-?- 155 -?-?-?-?-?-?-?-?-?-?-?-?- KW- US scheduled with [facility]. no vb/cramping. +flutters. On metformin 500mg for Blood sugars. Reports fasting BS under 95. Encouraged to continue checking BS and follow up with Renny. doing well on ZOloft. KW- US scheduled with [facility]. n o vb/cramping. +flutters. On metformin 500mg [...] x good fm. reactive NST. MIL in chcf-noticing some spikes in blood sugars with stress. [...] date discrepancy O26.849 CPT Codes Non-Stress Test (12919) Assessment and Plan Assessment and Plan (1) [...] Cosigner Signature: Date (if applicable) CC: ~ [facility]10-16-2025 Progress note Author Alycia Torres [facility] Note Date/Time January 27, 2025 2 :38pm [facility] [address] [place] [address], [address] [place] [address] OFFICE VISIT Date of Service: 01/27/25 MR#: [id number] Acct: [id number] Name: BRITTANY ROCA Rep #: [id number] : 1985 Provider: RALPH Torres Age/Sex: 39/F Location: [facility] Status: Signed Intake Vital Signs 01/06/25 08:44 01/24/25 10:21 01/27/25 14:01 Height 5 ft 10 in 5 ft 10 in 5 ft 10 in Weight: 250 lb 7 oz 249 lb 1 oz BMI 35.9 35.7 BP 103/69 113/74 Intake Visit Reasons: 35wk NST ONLY Filling Machine Operator Required: No Is patient in pain?: No Allergies avocado (avacado) Allergy (Intermediate, Verified 01/27/25 14:03) Swelling of tongue Medications ?Medication ?Instructions ?Recorded ?Confirmed ?Type mv-mn 110-FA 180 mcg-om3 35 mg-dha tab PO DAILY 01/27/25 History 25 mg-epa 5 mg-fish oil chew tablet flash glucose scanning reader #1 ea 08/31/24 01/27/25 Rx (FreeStyle Todd 2 [place]) flash glucose sensor (FreeStyle #1 ea 08/31/24 [...] current occupational status: employed 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 Rainer Panda Delivery Date: 08/26/18 Last [...] -?-?-?-?-?-?-?-?-?-?-?-?- 155 -?-?-?-?-?-?-?-?-?-?-?-?- KW- US scheduled with [facility]. no vb/cramping. +flutters. On metformin 500mg for Blood sugars. Reports fasting BS under 95. Encouraged to continue checking BS and follow up with DR Kim. doing well on ZOloft. KW- US scheduled with [facility]. n o vb/cramping. +flutters. On metformin 500mg [...] x good fm. reactive NST. MIL in chcf-noticing some spikes in blood sugars with stress. [...] date discrepancy O26.849 CPT Codes Non-Stress Test (33455) Assessment and Plan Assessment and Plan (1) [...] this visit. [place] appropriate handout given. 01/27/25 8653 <Electronically signed by Alycia godinez CNM> Date _ Alycia Torres CNM Cosigner Signature: Date (if applicable) CC: ~ [facility] Work Phone: 1(103) 808-224710-13-2025 Progress [facility] [address], [address] [place] [address] OFFICE VISIT Date of Service: 01/24/25 MR#: [id number] Acct: [id number] Name: BRITTANY ROCA Rep #: [id number] : 1985 Provider: RALPH Torres Age/Sex: 39/F Location: [facility] Status: Signed Intake Vital Signs 01/06/25 08:44 01/17/25 09:59 01/20/25 14:02 01/24/25 10:21 Height 5 ft 10 in 5 ft 10 in 5 ft 10 in 5 ft 10 in Weight: 244 lb 9 oz 247 lb 7 oz 250 lb 7 oz BMI 35.1 35.4 35.9 BP 106/68 112/70 103/69 Intake Visit Reasons: 35wk ob/nst Chief Complaint: 35wk OB Filling Machine Operator Required: No Is patient in pain?: No Allergies avocado (avacado) Allergy (Intermediate, Verified 01/24/25 10:19) Swelling of tongue Medications ?Medication ?Instructions ?Recorded ?Confirmed ?Type mv-mn 110-FA 180 mcg-om3 35 mg-dha tab PO DAILY 01/24/25 History 25 mg-epa 5 mg-fish oil chew tablet flash glucose scanning reader #1 ea 08/31/24 01/24/25 Rx (FreeStyle Todd 2 [place]) flash glucose sensor (FreeStyle #1 ea 08/31/24 [...] current occupational status: employed 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 Rainer Panda Delivery Date: 08/26/18 Last [...] -?-?-?-?-?-?-?-?-?-?-?-?- 155 -?-?-?-?-?-?-?-?-?-?-?-?- KW- US scheduled with [facility]. no vb/cramping. +flutters. On metformin 500mg for Blood sugars. Reports fasting BS under 95. Encouraged to continue checking BS and follow up with Renny. doing well on ZOloft. KW- US scheduled with [facility]. n o vb/cramping. +flutters. On metformin 500mg [...] x good fm. reactive NST. MIL in chcf-noticing some spikes in blood sugars with stress. [...] gestation: 34 weeks CPT Codes Non-Stress Test (60262) Assessment and Plan Assessment and Plan (1) [...] s CNM> Date _ Alycia [facility]M [facility] Signature: Date (if applicable) CC: ~ [facility]10-09-2025 Progress [facility] [address] [place] [address], [address] [place] [address] OFFICE VISIT Date of Service: 01/20/25 MR#: [id number] Acct: [id number] Name: BRITTANY ROCA Rep #: [id number] : 1985 Provider: RALPH Torres Age/Sex: 39/F Location: [facility] Status: Signed Intake Vital Signs 01/06/25 08:44 01/17/25 09:59 01/20/25 14:02 Height 5 ft 10 in 5 ft 10 in 5 ft 10 in Weight: 244 lb 9 oz 247 lb 7 oz BMI 35.1 35.4 BP 106/68 112/70 Intake Visit Reasons: 34wk NST ONLY Filling Machine Operator Required: No Is patient in pain?: No Allergies avocado (avacado) Allergy (Intermediate, Verified 01/20/25 14:06) Swelling of tongue Medications ?Medication ?Instructions ?Recorded ?Confirmed ?Type mv-mn 110-FA 180 mcg-om3 35 mg-dha tab PO DAILY 01/20/25 History 25 mg-epa 5 mg-fish oil chew tablet flash glucose scanning reader #1 ea 08/31/24 01/20/25 Rx (FreeStyle Todd 2 [place]) flash glucose sensor (FreeStyle #1 ea 08/31/24 [...] current occupational status: employed 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 Rainer Panda Delivery Date: 08/26/18 Last [...] -?-?-?-?-?-?-?-?-?-?-?-?- 155 -?-?-?-?-?-?-?-?-?-?-?-?- KW- US scheduled with [facility]. no vb/cramping. +flutters. On metformin 500mg for Blood sugars. Reports fasting BS under 95. Encouraged to continue checking BS and follow up with Renny. doing well on ZOloft. KW- US scheduled with [facility]. n o vb/cramping. +flutters. On metformin 500mg [...] x good fm. reactive NST. MIL in chcf-noticing some spikes in blood sugars with stress. [...] gestation: 33 weeks CPT Codes Non-Stress Test (45565) Assessment and Plan Assessment and Plan (1) [...] Cosigner Signature: Date (if applicable) CC: ~ [facility]10-09-2025 Progress note Author Alycia Torres [facility] Note Date/Time January 20, 2025 2: 34pm [facility] [address] [place] [address] OFFICE VISIT Date of Service: 01/20/25 MR#: [id number] Acct: [id number] Name: BRITTANY ROCA Rep #: [id number] : 1985 Provider: RALPH Torres Age/Sex: 39/F Location: [facility] Status: Signed Intake Vital Signs 01/06/25 08:44 01/17/25 09:59 01/20/25 14:02 Height 5 ft 10 in 5 ft 10 in 5 ft 10 in Weight: 244 lb 9 oz 247 lb 7 oz BMI 35.1 35.4 BP 106/68 112/70 Intake Visit Reasons: 34wk NST ONLY Filling Machine Operator Required: No Is patient in pain?: No Allergies avocado (avacado) Allergy (Intermediate, Verified 01/20/25 14:06) Swelling of tongue Medications ?Medication ?Instructions ?Recorded ?Confirmed ?Type mv-mn 110-FA 180 mcg-om3 35 mg-dha tab PO DAILY 01/20/25 History 25 mg-epa 5 mg-fish oil chew tablet flash glucose scanning reader #1 ea 08/31/24 01/20/25 Rx (FreeStyle Todd 2 [place]) flash glucose sensor (FreeStyle #1 ea 08/31/24 [...] current occupational status: employed 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 Rainer Panda Delivery Date: 08/26/18 Last [...] well on ZOloft. KW- US scheduled with [facility]. n o vb/cramping. +flutters. On metformin 500mg [...] x good fm. reactive NST. MIL in chcf-noticing some spikes in blood sugars with stress. [...] gestation: 33 weeks CPT Codes Non-Stress Test (42795) Assessment and Plan Assessment and Plan (1) [...] this visit. [place] appropriate handout given. 01/20/25 4823 <Electronically signed by Alycia godinez CNM> Date _ Alycia Ramires Signature: Date (if applicable) CC: ~ [facility] Work Phone: 1(716) 837-874510-06-2025 Progress [facility] [address] [place] [address], [address] [place] [address] OFFICE VISIT Date of Service: 01/17/25 MR#: [id number] Acct: [id number] Name: BRITTANY ROCA Rep #: [id number] : 1985 Provider: CARROLL Osuna Age/Sex: 39/F Location: [facility] Status: Signed with Addenda ADDENDUM by Ro Zuniga on 01/17/25 at 1055 Office Procedure Documentation entered by Ro Zuniga 01/17/25 10:55: Immunizations Flucelvax 9199-5480 (PF) 45 mcg (15 mcg x 3)/0.5 mL IM syringe Performing Provider: Shannon Osuna MANAGER TRANSITION, MANAGER TRANSITION-C Performing Location: [facility] Administered by: Ro Zuniga on 01/17/25 10:54 Dose Route Admin Location Dispensed Lot Number Expiration Date Pack age NDC NDC Construction Representative 0.5 mL IM Left Deltoid 0.5 mL [id number] 08/21/25 57681-822-45 [id number] [employer] 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 Rainer Panda Delivery Date: 08/26/18 Last [...] -?-?-?-?-?-?-?-?-?-?-?-?- 155 -?-?-?-?-?-?-?-?-?-?-?-?- KW- US scheduled with [facility]. no vb/cramping. +flutters. On metformin 500mg for Blood sugars. Reports fasting BS under 95. Encouraged to continue checking BS and follow up with Renny. doing well on ZOloft. KW- US scheduled with [facility]. n o vb/cramping. +flutters. On metformin 500mg [...] x good fm. reactive NST. MIL in chcf-noticing some spikes in blood sugars with stress. [...] date discrepancy O26.849 CPT Codes Non-Stress Test (83199) Assessment and Plan Assessment and Plan (1) [...] - Encounter for immunization Medications: New Flucelvax 5980-4986 (PF) (flu vac ts 2024(6 mo up)CD(PF)) 0.5 mL IM ONCE 0.5 mL 0RF NS Z23 - Encounter for immunization Plan problem list reviewed and updated for most current plan of care and appropriate orders placed. Relevant counseling for the gestational age appropriate providedand ACOG education checklist updated. Continue routine care and followup. 01/17/25 1047 s MANAGER TRANSITION MANAGER TRANSITION-C> Date _ Shannon Thao MANAGER TRANSITION MANAGER TRANSITION-C Cosigner Signature: Date (if applicable) CC: ~ [facility]10-03-2025 Progress [facility] [address] [place] [address], [address] [place] [address] OFFICE VISIT Date of Service: 01/14/25 MR#: [id number] Acct: [id number] Name: BRITTANY ROCA Rep #: [id number] : 1985 Provider: RALPH Torres Age/Sex: 39/F Location: [facility] Status: Signed Intake Vital Signs 01/06/25 08:44 01/11/25 09:01 01/14/25 08:08 Height 5 ft 10 in 5 ft 10 in 5 ft 10 in Weight: 247 lb 3 oz BMI 35.4 BP 116/71 Intake Visit Reasons: 33wk ob/nst Filling Machine Operator Required: No Is patient in pain?: No Allergies avocado (avacado) Allergy (Intermediate, Verified 01/14/25 08:13) Swelling of tongue Medications ?Medication ?Instructions ?Recorded ?Confirmed ?Type mv-mn 110-FA 180 mcg-om3 35 mg-dha tab PO DAILY 01/14/25 History 25 mg-epa 5 mg-fish oil chew tablet flash glucose scanning reader #1 ea 08/31/24 01/14/25 Rx (FreeStyle Todd 2 [place]) flash glucose sensor (FreeStyle #1 ea 08/31/24 [...] current occupational status: employed 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 Rainer Panda Delivery Date: 08/26/18 Last [...] -?-?-?-?-?-?-?-?-?-?-?-?- 155 -?-?-?-?-?-?-?-?-?-?-?-?- KW- US scheduled with [facility]. no vb/cramping. +flutters. On metformin 500mg for Blood sugars. Reports fasting BS under 95. Encouraged to continue checking BS and follow up with Renny. doing well on ZOloft. KW- US scheduled with [facility]. n o vb/cramping. +flutters. On metformin 500mg [...] x good fm. reactive NST. MIL in [facility]-noticing some spikes in blood sugars with stress. [...] gestation: 33 weeks CPT Codes Non-Stress Test (73622) Assessment and Plan Assessment and Plan (1) [...] Ramires Signature: Date (if applicable) CC: ~ [facility] [id number] [facility] [address] [place] [address], [address] [place] [address] OFFICE VISIT Date of Service: 01/11/25 MR#: [id number] Acct: [id number] Name: BRITTANY ROCA Rep #: [id number] : 1985 Provider: Dr. Denise Harris, Age/Sex: 39/F Location[place] [facility] Status: Signed Intake Vital Signs 01/06/25 08:44 01/11/25 09:01 01/11/25 09:01 Height 5 ft 10 in 5 ft 10 in 5 ft 10 in Weight: 243 lb 5 oz 247 lb 2 oz BMI 34.9 35.4 BP 105/65 108/67 Intake Visit Reasons: 33wk NST ONLY Filling Machine Operator Required: No Is patient in pain?: No Allergies avocado (avacado) Allergy (Intermediate, Verified 01/11/25 09:00) Swelling of tongue Medications ?Medication ?Instructions ?Recorded ?Confirmed ?Type mv-mn 110-FA 180 mcg-om3 35 mg-dha tab PO DAILY 01/11/25 History 25 mg-epa 5 mg-fish oil chew tablet flash glucose scanning reader #1 ea 08/31/24 01/11/25 Rx (FreeStyle Todd 2 [place]) flash glucose sensor (FreeStyle #1 ea 08/31/24 [...] 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 Date Name GA/Weeks Outcome Route Bth Weight Infant Gen Labor Lgth Anesthesia Del Locatn Provider FOB 08/26/18 [place] 40 live - full term 9lbs Female 16 hours none [facility] EB Frazad 10/24/20 [place] 39 live - full term 8#10oz Male epi dural [facility] Dr. Ajith Panda Delivery Date: 08/26/18 Last [...] -?-?-?-?-?-?-?-?-?-?-?--?- 155 -?-?-?-?-?-?-?-?-?-?-?-?- KW- US scheduled with [facility]. no vb/cramping. +flutters. On metformin 500mg for Blood sugars. Reports fasting BS under 95. Encouraged to continue checking BS and follow up with Renny. doing well on ZOloft. KW- US scheduled with [facility]. n o vb/cramping. +flutters. On metformin 500mg [...] gestation: 32 weeks CPT Codes Non-Stress Test (52894) Assessment and Plan Assessment and Plan (1) [...] Ceja Signature: Date (if applicable) CC: ~ [facility]09-25-2025 [facility] [address], [address] [place] [address] OFFICE VISIT Date of Service: 01/06/25 MR#: [id number] Acct: [id number] Name: BRITTANY ROCA Rep #: [id number] : 1985 Provider: CARROLL Osuna Age/Sex: 39/F Location: [facility] Status: Signed Intake Vital Signs 11/25/24 09:54 12/28/24 15:10 01/06/25 08:44 Height 5 ft 10 in 5 ft 10 in 5 ft 10 in Weight: 243 lb 5 oz BMI 34.9 BP 105/65 Intake Visit Reasons: 32 wk ob Chief Complaint: 32 Week OB Filling Machine Operator Required: No Is patient in pain?: No Allergies avocado (avacado) Allergy (Intermediate, Verified 01/06/25 08:46) Swelling of tongue Medications ?Medication ?Instructions ?Recorded ?Confirmed ?Type mv-mn 110-FA 180 mcg-om3 35 mg-dha tab PO DAILY 01/06/25 History 25 mg-epa 5 mg-fish oil chew tablet flash glucose scanning reader #1 ea 08/31/24 01/06/25 Rx (FreeStyle Todd 2 [place]) flash glucose sensor (FreeStyle #1 ea 08/31/24 [...] current occupational status: employed 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 Rainer Panda Delivery Date: 08/26/18 Last [...] -?-?-?-?-?-?-?-?-?-?-?-?- 155 -?-?-?-?-?-?-?-?-?-?-?-?- KW- US scheduled with [facility]. no vb/cramping. +flutters. On metformin 500mg for Blood sugars. Reports fasting BS under 95. Encouraged to continue checking BS and follow up with Renny. doing well on ZOloft. KW- US scheduled with [facility]. n o vb/cramping. +flutters. On metformin 500mg [...] mL IM syringe Performing Provider: Shannon Osuna MANAGER TRANSITION, MANAGER TRANSITION-C Performing Location: [facility] Administered by: Ro Zuniga on 01/06/25 09:12 Dose Route Admin Location Dispensed Lot Number Expiration Date Pack age NDC NDC Construction Representative 0.5 mL IM Right Deltoid 0.5 mL [id number] 12/12/26 05372-818-95 [id number] [employer] VIS Given Date VIS Provided VIS Publication [...] Continue routine care and followup. 01/06/25918 s MANAGER TRANSITION MANAGER TRANSITION-C> Date _ Shannon [place] MANAGER TRANSITION MANAGER TRANSITION-C Cosigner Signature: Date (if applicable) CC: ~ [facility]09-10-2025 [facility] [address] [place] [address], [address] [place] [address] OFFICE VISIT Date of Service: 12/22/24 MR#: [id number] Acct: [id number] Name: BRITTANY ROCA Rep #: [id number] : 1985 Provider: RALPH Torres Age/Sex: 39/F Location: [facility] Status: Signed Intake Vital Signs 09/27/24 10:22 11/25/24 09:54 12/22/24 14:07 Height 5 ft 10 in 5 ft 10 in 5 ft 10 in Weight: 241 lb 8 oz BMI 34.6 BP 113/79 Intake Visit Reasons: 30wk ob Chief Complaint: 30wk OB Filling Machine Operator Required: No Is patient in pain?: No [...] ea 08/31/24 12/22/24 Rx (FreeStyle Todd 2 Marion) flash glucose sensor (FreeStyle #1 ea 08/31/24 [...] current occupational status: employed 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 Rainer Panda Delivery Date: 08/26/18 Last [...] -?-?-?-?-?-?-?-?-?-?-?-?- 155 -?-?-?-?-?-?-?-?-?-?-?-?- KW- US scheduled with [facility]. no vb/cramping. +flutters. On metformin 500mg for Blood sugars. Reports fasting BS under 95. Encouraged to continue checking BS and follow up with Renny. doing well on ZOloft. KW- US scheduled with [facility]. n o vb/cramping. +flutters. On metformin 500mg [...] Cosigner Signature: Date (if applicable) CC: ~ [facility]09-10-2025 Progress note Author Alycia Torres [facility] Note Date/Time December 22, 2024 2:44pm [facility] [address], [address] [place] [address] OFFICE VISIT Date of Service: 12/22/24 MR#: [id number] Acct: [id number] Name: BRITTANY ROCA Rep #: [id number] : 1985 Provider: RALPH Torres Age/Sex: 39/F Location: [facility] Status: Signed Intake Vital Signs 09/27/24 10:22 11/25/24 09:54 12/22/24 14:07 Height 5 ft 10 in 5 ft 10 in 5 ft 10 in Weight: 241 lb 8 oz BMI 34.6 BP 113/79 Intake Visit Reasons: 30wk ob Chief Complaint: 30wk OB Filling Machine Operator Required: No Is patient in pain?: No [...] ea 08/31/24 12/22/24 Rx (FreeStyle Todd 2 Marion) flash glucose sensor (FreeStyle #1 ea 08/31/24 [...] current occupational status: employed 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 Rainer Panda Delivery Date: 08/26/18 Last [...] -?-?-?-?-?-?-?-?-?-?-?-?- 155 -?-?-?-?-?-?-?-?-?-?-?-?- KW- US scheduled with [facility]. no vb/cramping. +flutters. On metformin 500mg for Blood sugars. Reports fasting BS under 95. Encouraged to continue checking BS and follow up with DR Kim. doing well on ZOloft. KW- US scheduled with [facility]. n o vb/cramping. +flutters. On metformin 500mg [...] and no additional complaints, except as documented Amlo/Lymph Reports system reviewed and no additional complaints, [...] this visit. GA appropriate handout given. 12/22/24 9308 <Electronically signed by Alycia godinez CNM> Date _ Alycia Torres CNM Cosigner Signature: Date (if applicable) CC: ~ [facility] Work Phone: 1(749) 797-238607-14-2025 Evaluation note* Diagnosis Onset Date Resolution Status [...] infection ) during acute February 07 8:22am [facility] Work Phone: 1(945) 240-834207-14-2025 Evaluation note* Diagnosis Onset Date Resolution Status [...] infection ) during acute February 17 1:39pm [facility] Work Phone: 1(768) 543-843206-16-2025 Evaluation note* Diagnosis Onset Date Resolution Status [...] ) during acute January 11, 2025 8:56am [facility] Work Phone: 1(787) 657-575706-16-2025 Evaluation note* Diagnosis Onset Date Resolution Status [...] infection ) during acute January 14 8:03am [facility] Work Phone: 1(434) 416-727806-16-2025 Evaluation note* Diagnosis Onset Date Resolution Status [...] infection ) during acute January 17 9:55am [facility] Work Phone: 1(178) 402-686805-19-2025 Evaluation note* Diagnosis Onset Date Resolution Status [...] ) during acute December 22, 2024 1:59pm [facility] Work Phone: 1(445) 630-919005-19-2025 Evaluation note* Diagnosis Onset Date Resolution Status [...] discrepanc y acute December 28, 2024 3:08pm [facility] Work Phone: 1(521) 655-252005-19-2025 [facility] [address] [place] [address], [address] [place] [address] OFFICE VISIT Date of Service: 08/30/24 MR#: [id number] Acct: [id number] Name: BRITTANY ROCA Rep #: [id number] : 1985 Provider: Dr. 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 Rainer Panda Delivery Date: 08/26/18 Last [...] Cosigntoshia Signature: Date (if applicable) CC: ~ [facility]05-02-2025 Evaluation note* Diagnosis Onset Date Resolution [...] AMA (advanced maternal age) multigravida 35+ acute Jane 14th, 20 25 9:42am Anxiety acute November [...] infection ) during acute November 25 9:42am [facility] Work Phone: 1(243) 856-130504-16-2025 Evaluation note* Diagnosis Onset Date Resolution Status [...] of high-risk acute July 28, 2024 9:47am [facility] Work Phone: 1([phone]) 927-744204-16-2025 Evaluation note* Diagnosis Onset Date Resolution Status [...] 2024 9: 10am History of gestational diabe barndt mellitus (GDM) in prior , currentl acute August 13 9:10am Obesity affecting acute August 13, 2024 9:10am acute August 13, 2024 9:10am Supervision of high-risk acute August 13, 2024 9: 10am UTI (urinary tract infection ) during acute August 13, 2024 9 :10am [facility] Work Phone: 1(289) 310-507204-16-2025 Evaluation note* Diagnosis Onset Date Resolution Status [...] ) during acute August 30, 2024 10:13am [facility] Work Phone: 1([phone]) 873-187104-16-2025 Evaluation note* Diagnosis Onset Date Resolution Status [...] ) during acute September 27, 2024 10:19am [facility] Work Phone: 1([phone]) 117-434504-16-2025 Evaluation note* Diagnosis Onset Date Resolution Status [...] ) during acute October 25, 2024 10:10am [facility] Work Phone: 1([phone]) 587-578804-16-2025 Evaluation note* Diagnosis Onset Date Resolution Status [...] infection ) during acute November 25 9:42am [facility] Work Phone: Progress note Author Sarah Sharma [facility] Note Date/Time August 30, 2024 10:42 am [facility] [address] [place] [address], [address] [place] [address] OFFICE VISIT Date of Service: 08/30/24 MR#: [id number] Acct: [id number] Name: BRITTANY ROCA Rep #: [id number] : 1985 Provider: Dr. 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 Rainer Panda Delivery Date: 08/26/18 Last [...] CostaEspinoza Signature: Date (if applicable) CC: ~ [facility] Work Phone: Progress note Author Shannon Osuna [facility] Note Date/Time January 06, 2025 9:10am [facility] [address], [address] [place] [address] OFFICE VISIT Date of Service: 01/06/25 MR#: [id number] Acct: [id number] Name: BRITTANY ROCA Rep #: [id number] : 1985 Provider: CARROLL Osuna Age/Sex: 39/F Location: [facility] Status: Signed Intake Vital Signs 11/25/24 09:54 12/28/24 15:10 01/06/25 08:44 Height 5 ft 10 in 5 ft 10 in 5 ft 10 in Weight: 243 lb 5 oz BMI 34.9 BP 105/65 Intake Visit Reasons: 32 wk ob Chief Complaint: 32 Week OB Filling Machine Operator Required: No Is patient in pain?: No Allergies avocado (avacado) Allergy (Intermediate, Verified 01/06/25 08:46) Swelling of tongue Medications ?Medication ?Instructions ?Recorded ?Confirmed ?Type mv-mn 110-FA 180 mcg-om3 35 mg-dha tab PO DAILY 01/06/25 History 25 mg-epa 5 mg-fish oil chew tablet flash glucose scanning reader #1 ea 08/31/24 01/06/25 Rx (FreeStyle Todd 2 [place]) flash glucose sensor (FreeStyle #1 ea 08/31/24 [...] current occupational status: employed 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 Rainer Panda Delivery Date: 08/26/18 Last [...] -?-?-?-?-?-?-?-?-?-?-?-?- 155 -?-?-?-?-?-?-?-?-?-?-?-?- KW- US scheduled with [facility]. no vb/cramping. +flutters. On metformin 500mg for Blood sugars. Reports fasting BS under 95. Encouraged to continue checking BS and follow up with DR Kim. doing well on ZOloft. KW- US scheduled with [facility]. n o vb/cramping. +flutters. On metformin 500mg [...] mL IM syringe Performing Provider: Shannon Osuna MANAGER TRANSITION, MANAGER TRANSITION-C Performing Location: [facility] Administered by: Ro Zuniga on 01/06/25 09:12 Dose Route Admin Location Dispensed Lot Number Expiration Date Pack age NDC NDC Construction Representative 0.5 mL IM Right Deltoid 0.5 mL [id number] 12/12/26 82756-095-56 [id number] SANOFI- PASTEUR VIS Given Date VIS Provided [...] trimester Comment: PRR , ISIDRA 03/04/25, PC [place], lAeksander, Farzad (2) : Status: Acute Qualifiers: Weeks [...] 01/06/25918 <Electronically signed by Shannon godinez NP MANAGER TRANSITION-C> Date _ Shannon Osuna NP MANAGER TRANSITION-C Cosigner Signature: Date (if applicable) CC: ~ [facility] Work Phone: Progress note Author Sarah Sharma [facility] Note Date/Time January 11, 2025 9:44am [facility] [address], [address] [place] [address] OFFICE VISIT Date of Service: 01/11/25 MR#: [id number] Acct: [id number] Name: BRITTANY ROCA Rep #: [id number] : 1985 Provider: Dr. Denise Harris, Age/Sex: 39/F Location: [facility] Status: Signed Intake Vital Signs 01/06/25 08:44 01/11/25 09:01 01/11/25 09:01 Height 5 ft 10 in 5 ft 10 in 5 ft 10 in Weight: 243 lb 5 oz 247 lb 2 oz BMI 34.9 35.4 BP 105/65 108/67 Intake Visit Reasons: 33wk NST ONLY Filling Machine Operator Required: No Is patient in pain?: No Allergies avocado (avacado) Allergy (Intermediate, Verified 01/11/25 09:00) Swelling of tongue Medications ?Medication ?Instructions ?Recorded ?Confirmed ?Type mv-mn 110-FA 180 mcg-om3 35 mg-dha tab PO DAILY 01/11/25 History 25 mg-epa 5 mg-fish oil chew tablet flash glucose scanning reader #1 ea 08/31/24 01/11/25 Rx (FreeStyle Todd 2 [place]) flash glucose sensor (FreeStyle #1 ea 08/31/24 [...] 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 Date Name GA/Weeks Outcome Route Bth Weight Infant Gen Labor Lgth Anesthesia Del Locatn Provider FOB 08/26/18 [place] 40 live - full term 9lbs Female 16 hours none [facility] EB Farzad 10/24/20 [place] 39 live - full term 8#10oz Male epi dural [facility] Dr. Ajith Panda Delivery Date: 08/26/18 Last [...] -?-?-?-?-?-?-?-?-?-?-?--?- 155 -?-?-?-?-?-?-?-?-?-?-?-?- KW- US scheduled with [facility]. no vb/cramping. +flutters. On metformin 500mg for Blood sugars. Reports fasting BS under 95. Encouraged to continue checking BS and follow up with DR Kim. doing well on ZOloft. KW- US scheduled with [facility]. n o vb/cramping. +flutters. On metformin 500mg [...] Urine Protein Negative Last Edit by Isabelle Blacnas on 01/11/25 09: 17 Coding Level of [...] gestation: 32 weeks CPT Codes Non-Stress Test (58302) Assessment and Plan Assessment and Plan (1) [...] Cosigner Signature: Date (if applicable) CC: ~ [facility] Work Phone: Progress note Author Alycia Torres [facility] Note Date/Time January 14, 2025 8: 56am [facility] [address] [place] [address], [address] [place] [address] OFFICE VISIT Date of Service: 01/14/25 MR#: [id number] Acct: [id number] Name: BRITTANY ROCA Rep #: [id number] : 1985 Provider: RALPH Torres Age/Sex: 39/F Location: [facility] [place] Status: Signed Intake Vital Signs 01/06/25 08:44 01/11/25 09:01 01/14/25 08:08 Height 5 ft 10 in 5 ft 10 in 5 ft 10 in Weight: 247 lb 3 oz BMI 35.4 BP 116/71 Intake Visit Reasons: 33wk ob/nst Filling Machine Operator Required: No Is patient in pain?: No Allergies avocado (avacado) Allergy (Intermediate, Verified 01/14/25 08:13) Swelling of tongue Medications ?Medication ?Instructions ?Recorded ?Confirmed ?Type mv-mn 110-FA 180 mcg-om3 35 mg-dha tab PO DAILY 01/14/25 History 25 mg-epa 5 mg-fish oil chew tablet flash glucose scanning reader #1 ea 08/31/24 01/14/25 Rx (FreeStyle Todd 2 [place]) flash glucose sensor (FreeStyle #1 ea 08/31/24 [...] current occupational status: employed 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 Rainer Panda Delivery Date: 08/26/18 Last [...] -?-?-?-?-?-?-?-?-?-?-?-?- 155 -?-?-?-?-?-?-?-?-?-?-?-?- KW- US scheduled with [facility]. no vb/cramping. +flutters. On metformin 500mg for Blood sugars. Reports fasting BS under 95. Encouraged to continue checking BS and follow up with DR Kim. doing well on ZOloft. KW- US scheduled with [facility]. n o vb/cramping. +flutters. On metformin 500mg [...] x good fm. reactive NST. MIL in [facility]-noticing some spikes in blood sugars with stress. [...] gestation: 33 weeks CPT Codes Non-Stress Test (15946) Assessment and Plan Assessment and Plan (1) [...] trimester Comment: PRR , ISIDRA 03/04/25, PC Jennifer, [place], Farzad (11) : Status: Acute Qualifiers: [...] Cosigner Signature: Date (if applicable) CC: ~ [facility] Work Phone: Progress note Author Shannon Osuna [facility] Note Date/Time January 17, 2025 10 :[address] [place] [address], [address] [place] [address] OFFICE VISIT Date of Service: 01/17/25 MR#: [id number] Acct: [id number] Name: CHANELLEBRITTANY SHAHLA Rep #: [id number] : 1985 Provider: CARROLL Osuna Age/Sex: 39/F Location: [facility] Status: Signed with Addenda ADDENDUM by Ro Zuniga on 01/17/25 at 1055 Office Procedure Documentation entered by Ro Zuniga 01/17/25 10:55: Immunizations Flucelvax 1336-4006 (PF) 45 mcg (15 mcg x 3)/0.5 mL IM syringe Performing Provider: Shannon Osuna MANAGER TRANSITIONCARROLL Performing Location: [facility] Administered by: Ro Zuniga on 01/17/25 10:54 Dose Route Admin Location Dispensed Lot Number Expiration Date Pack age NDC NDC Construction Representative 0.5 mL IM Left Deltoid 0.5 mL [id number] 08/21/25 84628-816-77 [id number]. 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 Rainer Panda Delivery Date: 08/26/18 Last [...] -?-?-?-?-?-?-?-?-?-?-?-?- 155 -?-?-?-?-?-?-?-?-?-?-?-?- KW- US scheduled with [facility]. no vb/cramping. +flutters. On metformin 500mg for Blood sugars. Reports fasting BS under 95. Encouraged to continue checking BS and follow up with DR Kim. doing well on ZOloft. KW- US scheduled with [facility]. n o vb/cramping. +flutters. On metformin 500mg [...] x good fm. reactive NST. MIL in [facility]-noticing some spikes in blood sugars with stress. [...] date discrepancy O26.849 CPT Codes Non-Stress Test (01270) Assessment and Plan Assessment and Plan (1) [...] - Encounter for immunization Medications: New Flucelvax 3064-0948 (PF) (flu vac ts 2024(6 mo up)CD(PF)) 0.5 mL IM ONCE 0.5 mL 0RF NS Z23 - Encounter for immunization Plan problem list reviewed and updated for most current plan of care and appropriate orders placed. Relevant counseling for the gestational age appropriate providedand ACOG education checklist updated. Continue routine care and followup. 01/17/25 1047 <Electronically signed by Shannon godinez MANAGER TRANSITION MANAGER TRANSITION-C> Date _ Shannon Osuna MANAGER TRANSITION MANAGER TRANSITION-C Cosigner Signature: Date (if applicable) CC: ~ [facility] Work Phone: Progress note Author Alycia Torres [facility] Note Date/Time January 24, 2025 1 0:50am [facility] [address], [address] [place] [address] OFFICE VISIT Date of Service: 01/24/25 MR#: [id number] Acct: [id number] Name: BRITTANY ROCA Rep #: [id number] : 1985 Provider: RALPH Torres Age/Sex: 39/F Location: [facility] [place] Status: Signed Intake Vital Signs 01/06/25 08:44 01/17/25 09:59 01/20/25 14:02 01/24/25 10:21 Height 5 ft 10 in 5 ft 10 in 5 ft 10 in 5 ft 10 in Weight: 244 lb 9 oz 247 lb 7 oz 250 lb 7 oz BMI 35.1 35.4 35.9 BP 106/68 112/70 103/69 Intake Visit Reasons: 35wk ob/nst Chief Complaint: 35wk OB Filling Machine Operator Required: No Is patient in pain?: No Allergies avocado (avacado) Allergy (Intermediate, Verified 01/24/25 10:19) Swelling of tongue Medications ?Medication ?Instructions ?Recorded ?Confirmed ?Type mv-mn 110-FA 180 mcg-om3 35 mg-dha tab PO DAILY 01/24/25 History 25 mg-epa 5 mg-fish oil chew tablet flash glucose scanning reader #1 ea 08/31/24 01/24/25 Rx (FreeStyle [place] 2 [place]) flash glucose sensor (FreeStyle #1 ea 08/31/24 [...] current occupational status: employed 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 Rainer Panda Delivery Date: 08/26/18 Last [...] -?-?-?-?-?-?-?-?-?-?-?-?- 155 -?-?-?-?-?-?-?-?-?-?-?-?- KW- US scheduled with [facility]. no vb/cramping. +flutters. On metformin 500mg for Blood sugars. Reports fasting BS under 95. Encouraged to continue checking BS and follow up with DR Kim. doing well on ZOloft. KW- US scheduled with [facility]. n o vb/cramping. +flutters. On metformin 500mg [...] x good fm. reactive NST. MIL in [facility]-noticing some spikes in blood sugars with stress. [...] Office Urine Protein Negative Last Edit by Inyd Yoder on 01/24/25 10:31 Coding Level of [...] gestation: 34 weeks CPT Codes Non-Stress Test (87316) Assessment and Plan Assessment and Plan (1) [...] Cosigner Signature: Date (if applicable) CC: ~ [facility] Work Phone: Progress note Author Alycia Torres [facility] Note Date/Time January 31, 2025 1 0:15am [facility] [address], [address] [place] [address] OFFICE VISIT Date of Service: 01/31/25 MR#: [id number] Acct: [id number] Name: BRITTANY ROCA Rep #: [id number] : 1985 Provider: RALPH Torres Age/Sex: 39/F Location: [facility] [place] Status: Signed Intake Vital Signs 01/06/25 08:44 01/17/25 09:59 01/27/25 15:11 01/31/25 08:41 Height 5 ft 10 in 5 ft 10 in 5 ft 9 in 5 ft 9 in Weight: 252 lb 4 oz BMI 37.2 BP 103/72 Intake Visit Reasons: 36wk ob/nst Chief Complaint: 36wk OB/NST Filling Machine Operator Required: No Is patient in pain?: No Allergies avocado (avacado) Allergy (Intermediate, Verified 01/31/25 08:38) Swelling of tongue Medications ?Medication ?Instructions ?Recorded ?Confirmed ?Type mv-mn 110-FA 180 mcg-om3 35 mg-dha tab PO DAILY 01/31/25 History 25 mg-epa 5 mg-fish oil chew tablet flash glucose scanning reader #1 ea 08/31/24 01/31/25 Rx (FreeStyle [place] 2 [place]) flash glucose sensor (FreeStyle #1 ea 08/31/24 [...] current occupational status: employed 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 Rainer Panda Delivery Date: 08/26/18 Last [...] -?-?-?-?-?-?-?-?-?-?-?-?- 155 -?-?-?-?-?-?-?-?-?-?-?-?- KW- US scheduled with [facility]. no vb/cramping. +flutters. On metformin 500mg for Blood sugars. Reports fasting BS under 95. Encouraged to continue checking BS and follow up with DR Kim. doing well on ZOloft. KW- US scheduled with [facility]. n o vb/cramping. +flutters. On metformin 500mg [...] x good fm. reactive NST. MIL in [facility]-noticing some spikes in blood sugars with stress. [...] gestation: 35 weeks CPT Codes Non-Stress Test (64415) Assessment and Plan Assessment and Plan (1) [...] Cosigner Signature: Date (if applicable) CC: ~ [facility] Work Phone: Reason for referral (narrative)No reason for [facility] Work Phone: Chief Complaint and Reason for [...] December 22, 2024 1:59pm [facility] 2024 1:59pm Gestational diabetes December 22 1:59pm History of gestational diabe brandt mellitus (GDM) in prior , currentl December 22, 2024 1:59pm Insulin resistance complicating pregnanc y December 22, 2024 1:59pm Obesity affecting December 222024 1:59pm December 22, 2024 1:59pm Supervision of high-risk [facility] 2024 1:59pm UTI (urinary tract infection) during [...] December 22, 2024 1:59pm Genital herpes affecting [facility] 2024 1:59pm Gestational diabetes December 22 1:59pm History of gestational diabe brandt mellitus (GDM) in prior , currentl December 22, 2024 1:59pm Insulin resistance complicating pregnanc y December 22, 2024 1:59pm Obesity affecting December 222024 1:59pm December 22, 2024 1:59pm Supervision of high-risk [facility] 2024 1:59pm UTI (urinary tract infection) during pre gnancy December 22, 2024 1:59pm AMA (advanced maternal age) multigravida 35+ December 28, 2024 3:08pm Anxiety December 28, 2024 3:08pm Genital herpes affecting [facility] 2024 3:08pm Gestational diabetes December 28 3:08pm History of gestational diabe brandt mellitus (GDM) in prior , currentl December 28, 2024 3:08pm Insulin resistance complicating pregnanc y December 28, 2024 3:08pm Obesity affecting December 282024 3:08pm December 28, 2024 3:08pm Supervision of high-risk [facility] 2024 3:08pm Uterine size date [...] December 22, 2024 1:59pm Genital herpes affecting [facility] 2024 1:59pm Gestational diabetes December 22 1:59pm History of gestational diabe brandt mellitus (GDM) in prior , currentl December 22, 2024 1:59pm Insulin resistance complicating pregnanc y December 22, 2024 1:59pm Obesity affecting December 222024 1:59pm December 22, 2024 1:59pm Supervision of high-risk [facility] 2024 1:59pm UTI (urinary tract infection) during pre gnancy December 22, 2024 1:59pm AMA (advanced maternal age) multigravida 35+ December 28, 2024 3:08pm Anxiety December 28, 2024 3:08pm Genital herpes affecting [facility] 2024 3:08pm Gestational diabetes December 28 3:08pm History of gestational diabe brandt mellitus (GDM) in prior , currentl December 28, 2024 3:08pm Insulin resistance complicating pregnanc y December 28, 2024 3:08pm Obesity affecting December 282024 3:08pm December 28, 2024 3:08pm Supervision of high-risk [facility] 2024 3:08pm Uterine size date discrepancy December 28, 2024 3:08pm AMA (advanced maternal age) multigravida 35+ January 06, 2025 8:43am Anxiety January 06, 2025 8:43am Genital herpes affecting [facility] 2024 8:43am Gestational diabetes January 06 8:43am History of gestational diabe brandt mellitus (GDM) in prior , currentl January 06, 2025 8:43am Insulin resistance complicating pregnanc y January 06, 2025 8:43am Obesity affecting January 062024 8:43am January 06, 2025 8:43am Supervision of high-risk [facility] 2024 8:43am Uterine size date discrepancy January 06, 2025 8:43am UTI (urinary tract infection) during pre gnancy January 06, 2025 8:43am AMA (advanced maternal age) multigravida 35+ January 11, 2025 8:56am Anxiety January 11, 2025 8:56am Genital herpes affecting [facility] 2024 8:56am Gestational diabetes January 11 8:56am History of gestational diabe brandt mellitus (GDM) in prior , currentl January 11, 2025 8:56am Insulin resistance complicating pregnanc y January 11, 2025 8:56am Obesity affecting January 112024 8:56am January 11, 2025 8:56am Supervision of high-risk [facility] 2024 8:56am Uterine size date [...] December 28, 2024 3:08pm Genital herpes affecting [facility] 2024 3:08pm Gestational diabetes December 28 3:08pm History of gestational diabe brandt mellitus (GDM) in prior , currentl December 28, 2024 3:08pm Insulin resistance complicating pregnanc y December 28, 2024 3:08pm Obesity affecting December 282024 3:08pm December 28, 2024 3:08pm Supervision of high-risk [facility] 2024 3:08pm Uterine size date discrepancy December 28, 2024 3:08pm AMA (advanced maternal age) multigravida 35+ January 06, 2025 8:43am Anxiety January 06, 2025 8:43am Genital herpes affecting [facility] 2024 8:43am Gestational diabetes January 06 8:43am History of gestational diabe brandt mellitus (GDM) in prior , currentl January 06, 2025 8:43am Insulin resistance complicating pregnanc y January 06, 2025 8:43am Obesity affecting January 062024 8:43am January 06, 2025 8:43am Supervision of high-risk [facility]2024 8:43am Uterine size date discrepancy January 06, 2025 8:43am UTI (urinary tract infection) during pre gnancy January 06, 2025 8:43am AMA (advanced maternal age) multigravida 35+ January 11, 2025 8:56am Anxiety January 11, 2025 8:56am Genital herpes affecting [facility] 2024 8:56am Gestational diabetes January 11 8:56am History of gestational diabe brandt mellitus (GDM) in prior , currentl January 11, 2025 8:56am Insulin resistance complicating pregnanc y January 11, 2025 8:56am Obesity affecting January 112024 8:56am January 11, 2025 8:56am Supervision of high-risk [facility] 2024 8:56am Uterine size date [...] December 28, 2024 3:08pm Genital herpes affecting [facility] 2024 3:08pm Gestational diabetes December 28 3:08pm History of gestational diabe brandt mellitus (GDM) in prior , currentl December 28, 2024 3:08pm Insulin resistance complicating pregnanc y December 28, 2024 3:08pm Obesity affecting December 282024 3:08pm December 28, 2024 3:08pm Supervision of high-risk [facility] 2024 3:08pm Uterine size date discrepancy December 28, 2024 3:08pm AMA (advanced maternal age) multigravida 35+ January 06, 2025 8:43am Anxiety January 06, 2025 8:43am Genital herpes affecting [facility] 2024 8:43am Gestational diabetes January 06 8:43am History of gestational diabe brandt mellitus (GDM) in prior , currentl January 06, 2025 8:43am Insulin resistance complicating pregnanc y January 06, 2025 8:43am Obesity affecting January 062024 8:43am January 06, 2025 8:43am Supervision of high-risk [facility] 2024 8:43am Uterine size date discrepancy January 06, 2025 8:43am UTI (urinary tract infection) during pre gnancy January 06, 2025 8:43am AMA (advanced maternal age) multigravida 35+ January 11, 2025 8:56am Anxiety January 11, 2025 8:56am Genital herpes affecting [facility] 2024 8:56am Gestational diabetes January 11 8:56am History of gestational diabe brandt mellitus (GDM) in prior , currentl January 11, 2025 8:56am Insulin resistance complicating pregnanc y January 11, 2025 8:56am Obesity affecting January 112024 8:56am January 11, 2025 8:56am Supervision of high-risk [facility] 2024 8:56am Uterine size date [...] December 22, 2024 1:59pm Genital herpes affecting [facility]2024 1:59pm Gestational diabetes December 22 1:59pm History of gestational diabe brandt mellitus (GDM) in prior , currentl December 22, 2024 1:59pm Obesity affecting December 222024 1:59pm December 22, 2024 1:59pm Supervision of high-risk [facility] 2024 1:59pm UTI (urinary tract infection) during pre gnancy December 22, 2024 1:59pm Insulin resistance complicating pregnanc y December 22, 2024 1:59pm AMA (advanced maternal age) multigravida 35+ December 28, 2024 3:08pm Anxiety December 28, 2024 3:08pm Genital herpes affecting [facility] 2024 3:08pm Gestational diabetes December 28 3:08pm History of gestational diabe brandt mellitus (GDM) in prior , currentl December 28, 2024 3:08pm Obesity affecting December 282024 3:08pm December 28, 2024 3:08pm Supervision of high-risk [facility] 2024 3:08pm Uterine size date discrepancy December 28, 2024 3:08pm Insulin resistance complicating pregnanc y December 28, 2024 3:08pm AMA (advanced maternal age) multigravida 35+ January 06, 2025 8:43am Anxiety January 06, 2025 8:43am Genital herpes affecting [facility] 2024 8:43am Gestational diabetes January 06 8:43am History of gestational diabe brandt mellitus (GDM) in prior , currentl January 06, 2025 8:43am Obesity affecting January 062024 8:43am January 06, 2025 8:43am Supervision of high-risk [facility] 2024 8:43am Uterine size date discrepancy January 06, 2025 8:43am UTI (urinary tract infection) during pre gnancy January 06, 2025 8:43am Insulin resistance complicating pregnanc y January 06, 2025 8:43am AMA (advanced maternal age) multigravida 35+ January 11, 2025 8:56am Anxiety January 11, 2025 8:56am Genital herpes affecting [facility] 2024 8:56am Gestational diabetes January 11 8:56am History of gestational diabe brandt mellitus (GDM) in prior , currentl January 11, 2025 8:56am Obesity affecting January 112024 8:56am January 11, 2025 8:56am [facility] 2024 8:56am Uterine size date discrepancy January [...] December 22, 2024 1:59pm Supervision of high-risk [facility] 2024 1:59pm UTI (urinary tract infection) during pre gnancy December 22, 2024 1:59pm Insulin resistance complicating pregnanc y December 22, 2024 1:59pm AMA (advanced maternal age) multigravida 35+ December 28, 2024 3:08pm Anxiety December 28, 2024 3:08pm Genital herpes affecting [facility] 2024 3:08pm Gestational diabetes December 28 3:08pm History of gestational diabe brandt mellitus (GDM) in prior , currentl December 28, 2024 3:08pm Obesity affecting December 282024 3:08pm December 28, 2024 3:08pm Supervision of high-risk [facility] 2024 3:08pm Uterine size date discrepancy December 28, 2024 3:08pm Insulin resistance complicating pregnanc y December 28, 2024 3:08pm AMA (advanced maternal age) multigravida 35+ January 06, 2025 8:43am Anxiety January 06, 2025 8:43am Genital herpes affecting [facility] 2024 8:43am Gestational diabetes January 06 8:43am History of gestational diabe brandt mellitus (GDM) in prior , currentl January 06, 2025 8:43am Obesity affecting January 062024 8:43am January 06, 2025 8:43am Supervision of high-risk [facility] 2024 8:43am Uterine size date discrepancy January 06, 2025 8:43am UTI (urinary tract infection) during pre gnancy January 06, 2025 8:43am Insulin resistance complicating pregnanc y January 06, 2025 8:43am AMA (advanced maternal age) multigravida 35+ January 11, 2025 8:56am Anxiety January 11, 2025 8:56am Genital herpes affecting [facility] 2024 8:56am Gestational diabetes January [...] Status: Inactive Member Role Status Dates Dr. Karne Chacko MD Primary Care Provider Active Start: [...] 2024 End: October 25, 2024 Shannon Osuna MANAGER TRANSITION, MANAGER TRANSITION-C Attending Provider Active Start: October 25, 2024 [...] 2024 End: October 25, 2024 Shannon Osuna MANAGER TRANSITION, MANAGER TRANSITION-C Attending Provider Active Start: October 25, 2024 [...] 2024 End: October 25, 2024 Shannon Osuna MANAGER TRANSITION, MANAGER TRANSITION-C Attending Provider Active Start: October 25, 2024 [...] End: December 28, 2024 Shannon Osuna NP, MANAGER TRANSITION-C Attending Provider Active Start: December 28, 2024 [...] 2024 End: October 25, 2024 Shannon Osuna MANAGER TRANSITION, MANAGER TRANSITION-C Attending physician Active Start: October 25, 2024 [...] 2024 End: December 28, 2024 Shannon Osuna MANAGER TRANSITION, MANAGER TRANSITION-C Attending physician Active Start: December 28, 2024 End: December 28, 2024 Team Status: Inactive Member Role/Relationship Status Dates Dr. Karen Chacko MD Primary care physician Active Start: January 06, 2025 End: January 06, 2025 Dr. Karen Chacko MD Referring Provider Active St art: January 06, 2025 End: January 06, 2025 Shannon Osuna MANAGER TRANSITION, MANAGER TRANSITION-C Attending physician Active Start: January 06, 2025 [...] End: January 17, 2025 Shannon Osuna NP, MANAGER TRANSITION-C Attending physician Active Start: January 17, 2025 End: January 17, 2025 Team Status: Inactive Member Role/Relationship Status Dates Dr. Karen Chacko MD Primary care physician Active Start: October 25, 2024 End: October 25, 2024 Dr. Karen Chacko MD Referring Provider Active St art: October 25, 2024 End: October 25, 2024 Shannon Osuna MANAGER TRANSITION, MANAGER TRANSITION-C Attending physician Active Start: October 25, 2024 [...] End: December 28, 2024 Shannon Osuna NP, MANAGER TRANSITION-C Attending physician Active Start: December 28, 2024 End: December 28, 2024 Team Status: Inactive Member Role/Relationship Status Dates Dr. Karen Chacko MD Primary care physician Active Start: January 06, 2025 End: January 06, 2025 Dr. Karen Chacko MD Referring Provider Active St art: January 06, 2025 End: January 06, 2025 Shannon Osuna MANAGER TRANSITION, MANAGER TRANSITION-C Attending physician Active Start: January 06, 2025 [...] 2025 End: January 17, 2025 Shannon Osuna MANAGER TRANSITION, MANAGER TRANSITION-C Attending physician Active Start: January 17, 2025 [...] section and content) Type Care Experience by [address] [place] [address]-labor support person: Farzad and sister (Kathi) or [...] requests: [] Type Detail Care Experience by [address] [place], [place] [address]radha traci-labor support person: Farzad and sister (Kathi) [...] section and content) DATE CREATED AUTHOR 02/08/2025 [facility] DATE CREATED AUTHOR AUTHOR'S ORGANIZ ATION 02/22/2025 [facility] FOR RECORDS PERTAINING TO PATIENTS WHO [...] BE BASED ON THE PRIMARY CLINICAL RECORDS. [employer] provides no warranty or guarantee of the accuracy or completeness of information in this document.
[2025-02-26 09:12] LABS: Hematocrit 35.5 % (37-47); Hemoglobin 11.6 g/dL (12.0-15.0); Immature Granulocytes Count 0.030 X10^3/uL (0.0-0.0); Mean Corp Hgb Conc 32.7 g/dL (32-36); Mean Corpuscular Volume 91.7 fL (81-99); Mean Platelet Vol. 12.5 fl (6.2-12.0); NRBC Flagged by Analyzer 0 % (0-5); Platelet Count 202 K/mm3 (150-450); RBC Distribution Width CV 13.4 % (11.6-14.6); RBC Distribution Width SD 44.7 fl (35.1-43.9); Red Blood Count 3.87 M/mm3 (4.2-5.4); White Blood Count 9.4 K/mm3 (4.4-11.0)
[2025-02-26 09:55] LABS: Syphilis Antibodies Nonreactive (Nonreactive)
[2025-02-26] MEDS: Oxytocin 15 Units/NS 250ml 15 UNITS/250 ML IV.SOLN 2 UNITS IV (10:14)
[2025-02-26] MEDS: Lactated Ringers 1,000 ML 999 ML IV (13:14)
[2025-02-26] MEDS: fentaNYL-bupivacaine (epidural) 100 ML BAG EPIDURAL (14:10)
--- NOTE | 2025-02-26 14:28 | PN_ITS ---
Progress Note comfortable with epidural current tracing: FHT: 140 Moderate variability reactive no decelerations category I tracing Ball: 2-3 minutes Contractions Membranes:ruptured at 1425 for clear SVE:5/70/-2 pitocin at 10 A/P: Continue with position changes Titrate pitocin per protocol Epidural per anesthesia GBS neg Anticipate Dr Spear aware of above assessment and agrees with plan of care Assessment & Plan Assessment/Plan (1) Encounter for induction of labor: (2) Uterine size date discrepancy : (3) Gestational diabetes: QUALIFIERS: Gestational diabetes mellitus control: oral hypoglycemic-controlled Trimester: second trimester Qualified Code(s): O24.415 - Gestational diabetes mellitus in , controlled by oral hypoglycemic dr mustafa (4) UTI (urinary tract infection) during : QUALIFIERS: Trimester: second trimester Qualified Code(s): O23.42 - Unspecified infection of urinary tract in , second trimester (5) AMA (advanced maternal age) multigravida 35+: QUALIFIERS: Trimester: third trimester Qualified Code(s): O09.523 - Supervision of elderly multigravida, third trimester (6) Genital herpes affecting : QUALIFIERS: Trimester: third trimester Qualified Code(s): O98.313 - Other infections with a predominantly sexual mode of transmission complicating , third trimester; A60.09 - Herpesviral infection of other urogenital tract (7) Obesity affecting : QUALIFIERS: Trimester: second trimester Obesity type affecting : unspecified obesity Qualified Code(s): O99.212 - Obesity complicating , second trimester (8) History of gestational diabetes mellitus (GDM) in prior , currently : (9) Anxiety: (10) Supervision of high-risk : QUALIFIERS: Trimester: third trimester Qualified Code(s): O09.93 - Supervision of high risk , unspecified, third trimester (11) : QUALIFIERS: Weeks of gestation: 38 weeks Qualified Code(s): Z3A.38 - 38 weeks gestation of Multi Select Codes Urinary/Genital Urinary/Genital CPT Codes: No Charge
[2025-02-26] MEDS: Lactated Ringers 1,000 ML 200 ML IV (15:52)
--- NOTE | 2025-02-26 16:51 | OB.VAGDELI_ITS ---
Assessment & Plan (1) Vaginal delivery: COMMENT: KW boy 39.1 Jose De Jesus (2) Encounter for induction of labor: COMMENT: pitocin (3) Gestational diabetes: QUALIFIERS: Gestational diabetes mellitus control: oral hypoglycemic-controlled Trimester: second trimester Qualified Code(s): O24.415 - Gestational diabetes mellitus in , controlled by oral hypoglycemic drugs COMMENT: GDMA2 on metformin; Dr Hall manages. Growth US 32 and 36 wk. Twice wkly NST at 32 wk. Del at 39 wk (4) Uterine size date discrepancy : COMMENT: growth US ordered:32 wk:EFW 68%, AC 98%. 36 w scheduled (5) UTI (urinary tract infection) during : QUALIFIERS: Trimester: second trimester Qualified Code(s): O23.42 - Unspecified infection of urinary tract in , second trimester (6) AMA (advanced maternal age) multigravida 35+: QUALIFIERS: Trimester: third trimester Qualified Code(s): O09.523 - Supervision of elderly multigravida, third trimester COMMENT: discussed genetic testing. Patient declines. (7) Genital herpes affecting : QUALIFIERS: Trimester: third trimester Qualified Code(s): O98.313 - Other infections with a predominantly sexual mode of transmission complicating , third trimester; A60.09 - Herpesviral infection of other urogenital tract COMMENT: valtrex at 34-36 weeks (8) Obesity affecting : QUALIFIERS: Trimester: second trimester Obesity type affecting : unspecified obesity Qualified Code(s): O99.212 - Obesity complicating , second trimester COMMENT: HGBA1C, BMI 33 (9) History of gestational diabetes mellitus (GDM) in prior , currently : (10) Anxiety: COMMENT: zoloft stopped. Continue counseling 3 X a week. "feels much better off med" (11) Supervision of high-risk : QUALIFIERS: Trimester: third trimester Qualified Code(s): O09.93 - Supervision of high risk , unspecified, third trimester COMMENT: PRR , ISIDRA 03/[birth year]/25, boy PC JenniferAleksander, Farzad (12) : QUALIFIERS: Weeks of gestation: 38 weeks Qualified Code(s): Z3A.38 - 38 weeks gestation of COMMENT: GBS neg, declined NIPT & Carrier testing, nl 3 HR GTT, nl anatomy Maternal Data Information ISIDRA Calculator Estimated Delivery Date Method Current WG Current Estimate 03/04/25 LMP (Certain) 39w 1d Other Estimates 03/10/25 Ultrasound #1 38w 2d 03/04/25 Ultrasound #2 39w 1d Final ISIDRA: 02/26/25 Final ISIDRA Source: US >20 weeks Gestational age: 39.1 Vaginal Delivery Maternal Presentation Maternal Presentation: Medically Indicated Induction Maternal Presentation: Presented to unit for induction of labor for GDM and decreased movement at 39.1 weeks Type of Induction: Pitocin and Amniotomy Medical Reason for Induction: Compromise: list: Vaginal Delivery Information Procedure Performed: Spontaneous Vaginal Delivery Surgeon/Practitioner: Alycia Torres Date of Procedure: 02/26/25 Pre-Procedure Diagnosis: see problem list Post-Procedure Diagnosis: same Type of anesthesia: Epidural Estimated Blood Loss: 100 Time of Delivery: 16:33 Findings Description of procedure: Progressed well to 10cm dilated and made steady progress with effective maternal pushing. Delivered the head in SHAYAN presentation. The head was delivered atraumatically and a loose nuchal cord was identified and was easily reduced over the infant's head. The anterior and posterior shoulders delivered without complication followed by the rest of the and the was placed on the maternal abdomen. Delayed cord clamping was employed for approximately 3 minutes. Cord was clamped and cut and gentle traction was applied to the cord and the placenta delivered spontaneously. Immediately following, it was noted to be intact with a 3 vessel cord. Uterine bleeding stable. The perineum and vagina were inspected and noted to have a first degree laceration which was repaired with 3-0 Vicryl in the usual fashion. EBL was 100cc. Patient and tolerated delivery well. Apgars 7/9. Dr Spear notified of vaginal delivery and orders reviewed. Physician agrees with current plan of care. 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
--- NOTE | 2025-02-26 16:54 | PCM.DC ---
Discharge Instructions DC O2, CPAP, BIPAP needs Home O2 Discharge instructions: No Dressing / Incision Discharge Activity: Return to Normal Activity May resume sexual activity in: 6-8 weeks Dressing / Incision Call your doctor if you observe: Fever of 101 or Higher, Coldness, Increased Pain, Numbness or Tingling, Change in Color, Inability to urinate, Inability to have a bowel movement, Using more than 1 pad per hour, Shortness of breath, Dizziness, Fainting spells, Swelling in the ankles, Chest pain, Increased palpitations (irregular heartbeat), Calf discomfort and Uncontrolled pain Follow Up Care Please Follow Up With: Alycia Torres CNM When: Please call the office to schedule your follow up appointment in 6 weeks. If you had high blood pressure please call to schedule an appointment in 2 weeks. Test Results: Test results from this visit will be discussed in further detail at your follow-up appointment, if applicable. Discharge Plan Admission Admit Date/Time: 02/26/25 08:24 Attending Provider: Alycia Torres Primary Care Provider: Rajiv Chacko Discharge Orders/Prescriptions Prescriptions: No Action mv-mn [id number] 180 mcg-35 mg- 25 mg-5 mg tablet,chewable 1 tab PO DAILY metformin 500 mg tablet 1,000 mg PO DAILY (DME) FreeStyle Todd 2 [place] Misc See Rx Instructions .Route Qty: 1 0RF Rx Instructions: As directed (DME) FreeStyle Todd 2 Sensor Kit See Rx Instructions .Route Qty: 1 12RF Rx Instructions: As directed valacyclovir 500 mg tablet 500 mg PO QDAY Qty: 30 3RF Referrals / Follow Up: Rajiv Chacko MD [Primary Care Provider, Family Practice]
[2025-02-26] MEDS: Oxytocin 15 Units/NS 250ml 15 UNITS/250 ML IV.SOLN 83 UNITS IV (17:16)
[2025-02-27 02:40] VITALS: BP 108/65; PULSE 66; RESP 16; TEMP 36.4; O2SAT 98
[2025-02-27 08:03] VITALS: BP 110/63; PULSE 74; RESP 16; TEMP 36.8; O2SAT 97
--- NOTE | 2025-02-27 08:57 | PN.OBGYN_ITS ---
Subjective Subjective Patient doing well without complaints. Tolerating PO. Ambulating and voiding without difficulty. Feeding well. Denies chest pain, shortness of breath, calf pain/swelling, fevers, chills, lightheadedness. Objective Data Objective Data Vital Signs: Vital Signs Temp Pulse Resp BP Pulse Ox O2 Del Method 98.3 F 74 16 110/63 97 Room Air 02/27/25 08:03 02/27/25 08:03 02/27/25 08:03 02/27/25 08:03 02/27/25 08:03 02/27/25 08:03 Oxygen Delivery Method Room Air Weight: 257 lb 4.471 oz Body Mass Index (BMI) 38.0 Intake & Output: Intake and Output for Last 24 Hours 02/25/25 02/26/25 02/27/25 23:59 23:59 23:59 Intake Total 2186.67 / 2186.67 Output Total 650 / 650 400 / 400 Balance 1536.67 / 1536.67 -400 / -400 Lab / Micro Data 02/26/25 09:00 Labs: Laboratory Results - last 24 hr 02/26/25 08:44: POC Glucose 89 02/26/25 09:00: WBC 9.4, RBC 3.87 L, Hgb 11.6 L, Hct 35.5 L, MCV 91.7, MCH 30.0, MCHC 32.7, RDW Std Deviation 44.7 H, RDW Coeff of Cipriano 13.4, Plt Count 202, MPV 12.5 H, Immature Gran % (Auto) 0.300, Neut % (Auto) 72.2 H, Lymph % (Auto) 21.4, Parke % (Auto) 5.3, Eos % (Auto) 0.4, Baso % (Auto) 0.4, Absolute Neuts (auto) 6.7, Absolute Lymphs (auto) 2.00, Nucleated RBC % 0, Syphilis Total Ab Nonreactive, Blood Type A POSITIVE, Antibody Screen NEGATIVE 02/26/25 09:38: POC Glucose 93 02/26/25 13:20: POC Glucose 84 02/26/25 17:11: POC Glucose 79 ROS Constitutional Constitutional: Reports systems reviewed and no addt'l complaints, except as documented; Denies anorexia or headache(s) Cardiovascular Cardiovascular: Reports systems reviewed and no addt'l complaints, except as documented; Denies dizziness, dyspnea, nausea or tachypnea Respiratory/Chest Respiratory/Chest: Reports systems reviewed and no addt'l complaints, except as documented; Denies cough, dyspnea, shortness of breath at rest or tachypnea Gastrointestinal Gastrointestinal: Reports systems reviewed and no addt'l complaints, except as documented; Denies abdominal pain, constipation or nausea Genitourinary Genitourinary: Reports systems reviewed and no addt'l complaints, except as documented; Denies burning urination, difficulty urinating, dysuria, urinary frequency or urinary incontinence Musculoskeletal Musculoskeletal: Reports systems reviewed and no addt'l complaints, except as documented Integumentary Integumentary: Reports systems reviewed and no addt'l complaints, except as documented Neurologic Neurologic: Reports systems reviewed and no addt'l complaints, except as documented; Denies abnormal speech, dizziness or headache(s) Psychiatric Psychiatric: Reports systems reviewed and no addt'l complaints, except as documented Endocrine Endocrinology: Reports systems reviewed and no addt'l complaints, except as documented Hematologic/Lymphatic Hematologic/Lymphatic: Reports systems reviewed and no addt'l complaints, except as documented Physical Exam Const alert, oriented x3 and no apparent distress Neck full ROM Resp normal respiratory effort, normal air movement and no retractions Effort and Inspection: able to speak in complete sentences and symmetric chest movement GI soft to palpation Bladder / Kidney Exam: bladder normal to palpation Uterus Palpation: uterus fundus firm Extremity normal to inspection and full ROM Psych mental status grossly normal, thought process normal and cooperative Assessment & Plan (1) Vaginal delivery: COMMENT: KW boy 39.1 Jose De Jesus PLAN: s/p PPD # 1 1. routine post delivery care 2. breast feeding- support given 3. rh positive 4. rubella immune (2) Encounter for induction of labor: COMMENT: pitocin (3) Uterine size date discrepancy : COMMENT: growth US ordered:32 wk:EFW 68%, AC 98%. 36 w scheduled (4) Gestational diabetes: QUALIFIERS: Gestational diabetes mellitus control: oral hypoglycemic-controlled Trimester: second trimester Qualified Code(s): O24.415 - Gestational diabetes mellitus in , controlled by oral hypoglycemic drugs COMMENT: GDMA2 on metformin; Dr Hall manages. Growth US 32 and 36 wk. Twice wkly NST at 32 wk. Del at 39 wk (5) UTI (urinary tract infection) during : QUALIFIERS: Trimester: second trimester Qualified Code(s): O23.42 - Unspecified infection of urinary tract in , second trimester (6) AMA (advanced maternal age) multigravida 35+: QUALIFIERS: Trimester: third trimester Qualified Code(s): O09.523 - Supervision of elderly multigravida, third trimester COMMENT: discussed genetic testing. Patient declines. (7) Genital herpes affecting : QUALIFIERS: Trimester: third trimester Qualified Code(s): O98.313 - Other infections with a predominantly sexual mode of transmission complicating , third trimester; A60.09 - Herpesviral infection of other urogenital tract COMMENT: valtrex at 34-36 weeks (8) Obesity affecting : QUALIFIERS: Trimester: second trimester Obesity type affecting : unspecified obesity Qualified Code(s): O99.212 - Obesity complicating , second trimester COMMENT: HGBA1C, BMI 33 (9) History of gestational diabetes mellitus (GDM) in prior , currently : (10) Anxiety: COMMENT: zoloft stopped. Continue counseling 3 X a week. "feels much better off med" (11) Supervision of high-risk : QUALIFIERS: Trimester: third trimester Qualified Code(s): O09.93 - Supervision of high risk , unspecified, third trimester COMMENT: PRR , ISIDRA 03/04/25, boy PC Aleksander Rodriguez, Farzad (12) : QUALIFIERS: Weeks of gestation: 38 weeks Qualified Code(s): Z 3A.38 - 38 weeks gestation of COMMENT: GBS neg, declined NIPT & Carrier testing, nl 3 HR GTT, nl anatomy Charges/Coding Multi Select Codes Urinary/Genital Urinary/Genital CPT Codes: No Charge
--- NOTE | 2025-02-27 11:08 | CASEMGMT ---
Social Work Assessment Labor and Delivery Unit Patient Address: [address] [place] [address] [place] [address] Phone number: [phone] Date of Referral: 02/26/25 Time of Referral: 19:14 Referred By: Mildred Atkinson Date of Intervention: 02/27/25 Time of Intervention: 11:08 Reason for Referral: Mental Health/History of Anxiety History obtained from: Medical records and mother of baby (MOB). Household composition: MOB, father of baby (KARAN/Farzad, age 39), their 6-year-old daughter, Jennifer, 4-year-old son, Aleksander and son Jose De Jesus, born on 02/26/25. Patient's parent/guardian status: MOB and FOB have been together for 12 years and for 10 of those years. MOB described a positive relationship with the FOB and denied any history of domestic violence. Medical History: : 3, Para, now 3. MOB received care through [facility] beginning at 8 weeks and 5 days. Visits were observed to be regular/routine. Apgars: 7 and 9. Weight: 8lbs., 12 oz. Web Designer Developer: Felisha Zuniga. Educational Status: MOB denied any issues or concerns with reading or writing either with herself or with the FOB. MOB earned her Master’s degree and the FOB earned his Bachelors. Financial Status: MOB reported the household income is sufficient to meet the needs of her family at this time. 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 MOB reported her hours are part-time hours from home, MOB is taking 6-8 weeks of maternity leave. Supplies: PATITO reported she has all of the supplies she needs for baby at this time including but not limited to: Car seat, bassinet, crib, diapers, bottles, breast pump and clothing. Childcare/Caregiver(s): PATITO reported she will be the primary caregiver since she has the ability to work part-time from home and has other family members who are able to help if ever needed. Transportation: MOB reported she and the FOB are both licensed drivers with reliable vehicles to take baby to and from all medical appointments. No transportation issues identified. Programs/Agencies Involved: [employer]/Medicaid, [facility] with [facility], and MOB is involved with counseling services through [facility]. MOB reported she alternates sessions weekly on Friday’s and Fridays and described it as extremely helpful. Children Services/Legal Issues: Denied. Behavioral Health Issues: Denied. Mental Health History: MOB has a history of depression and anxiety. MOB used to be on medication to treat symptoms however recently went off so wouldn’t experience withdraw. MOB reported she feels that her symptoms are effectively managed at this time but is not against restarting if needed. MOB denied any mental health history with the FOB. Concrete Handler administered the [place] Depression Scale (EPDS). MOB’s score was 6. Concrete Handler provided education in regards to meaning of the score which MOB verbalized she understood. Substance Use History: Denied Family History: MOB reported that anxiety and possibly mild depression runs on her side of the family including with her mother and maternal grandmother. MOB denied any other history on either side of mental health and/or drug/alcohol use/abuse. Drug Screens: None obtained for the MOB or baby during this admission. Family/Social Stressors: MOB denied any current family/social stressors. Support Systems: Ample. MOB described her main support as her mother and the FOB. MOB stated she lives on a “family compound” that includes her mother, maternal grandmother and sister where all of them have their own homes where their backyards meet up with one another. Depression/Shaken Baby/Safe Sleeping: construction ironworker helper provided verbal and written education on PPD, increased risk for PPD, Safe Sleeping and Shaken Baby. MOB verbalized an understanding. ASSESSMENT: MOB provided consent to social work visit. At the time of the visit, MOB had just gotten out of the bathroom, the nurse was working with and ’s maternal grandmother (MGM) was nearby sitting in a chair. After the nurse left, was passed to the MGM who was observed to be very gentle and attentive. MOB and MGM were both verbally engaged and MOB was cooperative. At the end of the assessment, Concrete Handler requested to speak with the MOB alone, which MOB was agreeable to. MOB denied any drug/and or alcohol abuse, unmanaged mental health either with herself or with the FOB and denied any previous or current domestic violence. Safe Plan of Care for related to substance use: N/A; not needed. PLAN: Baby to be discharged home. construction ironworker helper also provided written information on depression, depression resources and Help Me Grow. No other services requested or indicated. Sarah Duran, CONSTRUCTION CARPENTERS HELPER, PR SPECIALIST
[2025-02-27 11:18] VITALS: BP 131/81; PULSE 78; RESP 16; TEMP 36.8
[2025-02-27 16:56] VITALS: BP 124/80; PULSE 91; RESP 15; TEMP 36.8; O2SAT 97
[2025-02-27 19:53] VITALS: BP 129/65; PULSE 92; RESP 16; TEMP 36.9; O2SAT 97
[2025-02-28 02:00] VITALS: BP 127/86; PULSE 86; RESP 16; TEMP 36.4; O2SAT 97
--- NOTE | 2025-02-28 09:17 | PCM.PN.OB ---
Subjective Subjective Patient doing well without complaints. Tolerating PO. Ambulating and voiding without difficulty. feeding well. Denies chest pain, shortness of breath, calf pain/swelling, fevers, chills, lightheadedness. Objective Data Objective Data Vital Signs: Vital Signs Temp Pulse Resp BP Pulse Ox O2 Del Method 97.6 F L 86 16 127/86 H 97 Room Air 02/28/25 02:00 02/28/25 02:00 02/28/25 02:00 02/28/25 02:00 02/28/25 02:00 02/28/25 02:00 Oxygen Delivery Method Room Air Weight: 257 lb 4.471 oz Body Mass Index (BMI) 38.0 Intake & Output: Intake and Output for Last 24 Hours 02/26/25 02/27/25 02/28/25 23:59 23:59 23:59 Intake Total 2186.67 / 2186.67 Output Total 650 / 650 400 / 400 Balance 1536.67 / 1536.67 -400 / -400 Lab / Micro Data 02/26/25 09:00 Labs: Laboratory Results - last 24 hr 02/28/25 06:58: POC Glucose 84 ROS Constitutional Constitutional: Reports systems reviewed and no addt'l complaints, except as documented Cardiovascular Cardiovascular: Reports systems reviewed and no addt'l complaints, except as documented Respiratory/Chest Respiratory/Chest: Reports systems reviewed and no addt'l complaints, except as documented Gastrointestinal Gastrointestinal: Reports systems reviewed and no addt'l complaints, except as documented Physical Exam Const alert, oriented x3 and no apparent distress HEENT Head and Scalp: atraumatic Resp normal respiratory effort GI soft to palpation and non-tender Bimanual Exam - Vag & Uterus: uterus non-tender Uterus Palpation: uterus fundus firm (below Umbilicus) Assessment & Plan (1) Vaginal delivery: COMMENT: KW boy 39.1 Jose De Jesus PLAN: Plan s/p PPD # 1 1. routine post delivery care 2. breast feeding- support given 3. rh positive 4. rubella immune
[2025-02-28 10:19] VITALS: BP 121/75; PULSE 90; RESP 16; TEMP 36.7; O2SAT 98
--- NOTE | 2025-03-06 10:20 | DS.PCM_ITS ---
Providers Date of Admission: 02/26/25 Primary Care Physician: Dr. Rajiv Chacko MD Reason For Visit: LABOR AND DELIVERY Diagnosis Discharge Diagnosis (1) Vaginal delivery: Status: Acute Code(s): O80 - Encounter for full-term uncomplicated delivery Plan s/p PPD # 1 1. routine post delivery care 2. breast feeding- support given 3. rh positive 4. rubella immune Medications at Discharge Home Medications mv-mn 110-FA 180 mcg-om3 35 mg-dha 25 mg-epa 5 mg-fish oil chew tablet 1 tab PO DAILY 07/23/24 flash glucose scanning reader (Dividend SolarStyle Todd 2 [place]) #1 ea 08/31/24 flash glucose sensor (FreeStyle Todd 2 Sensor kit) #1 ea 08/31/24 valacyclovir 500 mg tablet 500 mg PO QDAY #30 tabs 01/18/25 metformin 500 mg tablet 1,000 mg PO DAILY 02/26/25 Hospital Course Summary of Care Provided Hospital Course: IOL ama with uncomplicated routine recovery ppd 2 dc home Weight / BMI Weight Weight: 257 lb 4.471 oz Body Mass Index (BMI) 38.0 ABG / Lab / Microbiology Data 02/26/25 09:00 D/C Instructions May resume sexual activity in: 6-8 weeks Call your doctor if you observe: Fever of 101 or Higher, Coldness, Increased Pain, Numbness or Tingling, Change in Color, Inability to urinate, Inability to have a bowel movement, Using more than 1 pad per hour, Shortness of breath, Dizziness, Fainting spells, Swelling in the ankles, Chest pain, Increased palpitations (irregular heartbeat), Calf discomfort and Uncontrolled pain DC O2, CPAP, BIPAP Needs Home O2 Discharge instructions: No Please Follow Up With: Alycia Torres CNM When: Please call the office to schedule your follow up appointment in 6 weeks. If you had high blood pressure please call to schedule an appointment in 2 weeks. Meaningful Use Info Meaningful Use Meaningful Use Diagnoses (Choose all that apply): None applicable Discharge Plan Admission Admit Date/Time: 02/26/25 08:24 Attending Provider: Alycia Torres Primary Care Provider: Rajiv Chacko Discharge Orders/Prescriptions Prescriptions: No Action mv-mn [id number] 180 mcg-35 mg- 25 mg-5 mg tablet,chewable 1 tab PO DAILY metformin 500 mg tablet 1,000 mg PO DAILY (DME) FreeStyle Todd 2 [place] Misc See Rx Instructions .Route Qty: 1 0RF Rx Instructions: As directed (DME) FreeStyle Todd 2 Sensor Kit See Rx Instructions .Route Qty: 1 12RF Rx Instructions: As directed valacyclovir 500 mg tablet 500 mg PO QDAY Qty: 30 3RF Referrals / Follow Up: Rajiv Chacko MD [Primary Care Provider, Family Practice] Disposition Disposition (needs filled in before D/C Order can be placed): Home, Self Care
== END 2025-02-28 11:00 | disposition home or self-care (01) | DRG 560 ==
LOC: WPOUT 08:30 → WP 08:30
PROVIDERS: Admitting Provider Advanced Practice Midwife; PCP Family Medicine; Referring Provider Advanced Practice Midwife; Visit Provider Advanced Practice Midwife
DX: O24.425 Gestational diabetes mellitus in childbirth, controlled by oral hypoglycemic drugs (principal); Z37.0 Single live birth; O99.344 Other mental disorders complicating childbirth; E28.2 Polycystic ovarian syndrome; O99.214 Obesity complicating childbirth; F41.9 Anxiety disorder, unspecified; O36.8130 Decreased fetal movements, third trimester, not applicable or unspecified; O99.284 Endocrine, nutritional and metabolic diseases complicating childbirth; O69.81X0 Labor and delivery complicated by cord around neck, without compression, not applicable or unspecified; O70.0 First degree perineal laceration during delivery; Z3A.39 39 weeks gestation of pregnancy; Z87.440 Personal history of urinary (tract) infections; Z86.19 Personal history of other infectious and parasitic diseases
CPT/HCPCS: 59025; 59050; 82962; 85025; 86780; 86850; 86900; 86901; 99221; G0378